=== PATIENT | female | born 1965 | race Caucasian/White ===

== ENCOUNTER → 2017-11-02 09:20 | Outpatient (CLI) | payer MEDICAID, SELFPAY ==
--- NOTE | 2017-11-02 09:23 | RAD_ITS ---
STUDY: X-RAY - LEFT HAND, ATTENTION FIRST FINGER REASON FOR EXAM: Female, 52 years old. Thumb pain. History of arthritis TECHNIQUE: 3 view(s) of the finger were obtained. COMPARISON: None. FINDINGS: There is moderate arthrosis of the basal joint. Normal metacarpal head. Normal metacarpophalangeal joint. Normal proximal phalanx. Distal phalanx. Normal interphalangeal joint. Normal soft tissues RAD/Finger(s) Min 2 Views IMPRESSION: Moderate osteoarthritis of the basal joint Electronically Signed: Joesph Castellon MD, FACR at 9:45 EST , Service support ,
== END ==
PROVIDERS: Family Provider Family Medicine; PCP Family Medicine; Visit Provider Orthopaedic Surgery
DX: M18.9 Osteoarthritis of first carpometacarpal joint, unspecified (principal)
CPT/HCPCS: 73140

== ENCOUNTER → 2017-11-09 15:08 | Outpatient (CLI) | payer MEDICAID, SELFPAY ==
--- NOTE | 2017-11-09 15:10 | HPBI_ITS ---
MAMMOGRAPHY - BILATERAL SCREENING REASON FOR EXAM: Female, 52 years old. Routine annual screening examination. PERTINENT HISTORY: Non-contributory. TECHNIQUE: Digital bilateral breast michael (3D mammographic acquisition) in the CC and MLO projections. 2-D mediolateral oblique (MLO) and craniocaudad (CC) views of both breasts were obtained. CAD: Full Field Digital Mammography with Computer Added Detection was performed. COMPARISON: Comparison is made with prior examination dated June 26, 2016 and December 21, 2014. FINDINGS: Breast Composition: There are scattered areas of fibroglandular density. There are no dominant masses or suspicious calcifications. No other significant abnormalities are identified. There has been no significant change since the prior study. HPBI/SCREENING MAMM (CAD), BILAT IMPRESSION: Stable bilateral screening mammogram. Yearly follow-up mammogram recommended. (A) ASSESSMENT CATEGORY: BIRADS Category 1: Negative. A letter regarding these results will be sent to the patient by the facility within 30 days. Approximately 10% of breast cancers are not detected by mammography. A normal mammogram should not delay biopsy of a clinically suspicious abnormality. [id number] Electronically Signed: Hammad Roberts MD at 9:04 EST Tel [phone], Service support ,
== END ==
PROVIDERS: Family Provider Family Medicine; PCP Family Medicine; Visit Provider Obstetrics & Gynecology
DX: Z12.31 Encounter for screening mammogram for malignant neoplasm of breast (principal)
CPT/HCPCS: 77063; 77067

== ENCOUNTER 2017-11-26 12:54 | Day surgery (SDC) | payer MEDICAID, SELFPAY ==
[2017-11-26 13:19] VITALS: BP 142/94; PULSE 80; RESP 18; TEMP 36.9; O2SAT 100; BMI 39.7
--- NOTE | 2017-11-26 14:58 | RAD_ITS ---
PROCEDURE: Epidural cervical block. DATE OF EXAMINATION: November 26, 2017. INDICATION: Female, 52 years old. Chronic neck pain. FLUOROSCOPY TIME (if supplied): (0:05) minutes/seconds Fluoroscopic services provided for cervical epidural. RAD/Spine 1 View Any Level IMPRESSION: Fluoroscopic services provided for a cervical epidural. Electronically Signed: Hammad Roberts MD at 7:57 EDT Tel [phone], Service support ,
[2017-11-26] MEDS: Triamcinolone Acetonide 40 MG/ML Vial (15:01)
[2017-11-26 15:10] VITALS: BP 142/94; BP 144/88; PULSE 79; RESP 16; O2SAT 100
[2017-11-26 15:15] VITALS: BP 142/94; BP 150/87; PULSE 76; RESP 16; O2SAT 100
[2017-11-26 15:20] VITALS: BP 142/71; BP 142/94; PULSE 76; RESP 16; O2SAT 100
[2017-11-26 15:24] VITALS: BP 140/75; BP 142/94; PULSE 67; RESP 16; O2SAT 99
[2017-11-26 15:45] VITALS: BP 142/94
== END 2017-11-26 15:47 | disposition home or self-care (01) ==
LOC: SDC 12:55 → AC 12:56
PROVIDERS: Family Provider Family Medicine; PCP Family Medicine; Visit Provider Anesthesiology Pain Medicine
PROC: 3E0S3BZ Introduction of Anesthetic Agent into Epidural Space, Percutaneous Approach (ICD-10-PCS; CPT 62320; principal; 2017-11-26 14:05)
DX: M50.123 Cervical disc disorder at C6-C7 level with radiculopathy (principal); I10 Essential (primary) hypertension; E78.00 Pure hypercholesterolemia, unspecified; E06.9 Thyroiditis, unspecified; G47.30 Sleep apnea, unspecified; Z85.41 Personal history of malignant neoplasm of cervix uteri; Z87.891 Personal history of nicotine dependence; Z79.899 Other long term (current) drug therapy
CPT/HCPCS: 62321; 64490; 72020; J7120; J3490

== ENCOUNTER 2018-02-16 15:09 | Outpatient (RCR) | payer MEDICAID, SELFPAY | END 2018-02-17 23:59 | LOC: NS 15:09 | PROVIDERS: Family Provider Family Medicine; PCP Family Medicine; Visit Provider Podiatrist | DX: E66.8 Other obesity (principal); M06.872 Other specified rheumatoid arthritis, left ankle and foot; Z68.39 Body mass index [BMI] 39.0-39.9, adult; Z71.3 Dietary counseling and surveillance | CPT/HCPCS: 97802 ==

== ENCOUNTER → 2018-02-23 15:30 | Outpatient (CLI) | payer MEDICAID, SELFPAY ==
--- NOTE | 2018-02-23 15:30 | DT_ITS ---
This patient was seen during an EMR downtime February 21, 2018 - February 28, 2018. This patient may have a combination of paper and electronic documentation or all paper documentation. All documentation is viewable within the e-chart portion of [facility] for each patient visit.
== END ==
PROVIDERS: Family Provider Family Medicine; PCP Family Medicine; Visit Provider Obstetrics & Gynecology
DX: Z12.4 Encounter for screening for malignant neoplasm of cervix (principal)
CPT/HCPCS: 88175; G0145

== ENCOUNTER → 2018-03-09 09:40 | Outpatient (CLI) | payer MEDICAID, SELFPAY ==
[2018-03-09 10:30] LABS: Absolute Lymphocyte Count 2.11 X10^3/ul (0.83-4.51); Absolute Neutrophil Count 8.6 X10^3/uL (2.0-7.7); Basophil# 0.02 X10^3/uL; Basophil% 0.2 % (0-1); Eosinophil# 0.22 X10^3/uL; Eosinophils% 1.9 % (0-5); Hemoglobin 13.4 g/dl (12.0-15.0); Lymphocyte # 2.11 X10^3/ul (4.0); Mean Corp Hgb Conc 32.7 g/gl (32-36); Mean Corpuscular Hgb 29.4 pg (27.0-32.0); Mean Corpuscular Volume 89.9 fL (81-99); Mean Platelet Vol. 10.2 fl (6.2-12.0); Monocyte# 0.77 X10^3/uL; Monocyte% 6.6 % (0-10); Neutrophil % 73.2 % (47-70); Platelet Count 330 K/mm3 (150-450); RBC Distribution Width CV 12.6 % (11.6-14.6); RBC Distribution Width SD 40.5 fl (35.1-43.9); Red Blood Count 4.56 M/mm3 (4.2-5.4); White Blood Count 11.7 K/mm3 (4.4-11.0)
[2018-03-09 10:31] LABS: POSITIVE COUNT NO; POSITIVE DIFFERENTIAL NO; POSITIVE MORPHOLOGY NO
[2018-03-09 11:09] LABS: AST(SGOT) 15 U/L (15-37); Alanine Aminotransfer ALT/SGPT 24 U/L (13-56); Albumin, Serum 3.8 g/dL (3.2-5.0); Alkaline Phosphatase 105 U/L (45-117); Anion Gap 9 (5-15); BUN 19 mg/dL (7-18); BUN/Creat Ratio 20.8 RATIO (10-20); Calcium,Total 9.1 mg/dL (8.5-10.1); Chloride 103 mmol/L (98-107); Cholesterol 145 mg/dL (200); Creatinine, Serum 0.91 mg/dL (0.55-1.02); EST Glomerular Filtration Rate 68 mL/min (>60); Est Glom Filt Rate - Afr Amer 82 mL/min (>60); Glucose 90 mg/dL (74-106); High Density Lipoprotein 66 mg/dL; Potassium 4.1 mmol/L (3.5-5.1); Protein, Total 7.8 g/dL (6.4-8.2); Sodium Level 140 mmol/L (136-145); T4 Free Direct 1.47 ng/dL (0.76-1.46); Thyroid Stim Hormone (TSH) 1.88 uIU/mL (0.358-3.74); Triglycerides 95 mg/dL; Very Low Density Lipoprotein 19 mg/dL (5-40)
== END ==
PROVIDERS: Family Provider Family Medicine; PCP Family Medicine; Visit Provider Family Medicine
DX: Z00.01 Encounter for general adult medical examination with abnormal findings (principal); E03.9 Hypothyroidism, unspecified; E66.9 Obesity, unspecified
CPT/HCPCS: 36415; 80053; 80061; 82306; 84439; 84443; 85025

== ENCOUNTER 2018-03-16 14:05 | Day surgery (SDC) | payer MEDICAID, SELFPAY ==
[2018-03-16 14:27] VITALS: BP 136/71; PULSE 80; RESP 18; TEMP 36.4; O2SAT 100; BMI 38.2
--- NOTE | 2018-03-16 15:45 | RAD_ITS ---
STUDY: FLUOROSCOPIC IMAGING. REASON FOR EXAM: Female, 53 years old. Neck pain. FLUOROSCOPY TIME (if supplied): (0:18) minutes/seconds TECHNIQUE: Intraoperative imaging was provided for C7-T1 epidural block. COMPARISON: None. FINDINGS: Imaging provided for C7-T1 epidural block. RAD/Spine 1 View Any Level IMPRESSION: Imaging provided for C7-T1 epidural block. Electronically Signed: Hammad Roberts MD at 8:00 EDT Tel [phone], Service support ,
[2018-03-16] MEDS: Triamcinolone Acetonide 40 MG/ML Vial (16:18)
[2018-03-16 16:27] VITALS: BP 127/53; BP 136/71; PULSE 82; RESP 16; TEMP 36.4; O2SAT 100
[2018-03-16 16:32] VITALS: BP 117/71; BP 136/71; PULSE 80; RESP 16; O2SAT 100
[2018-03-16 16:37] VITALS: BP 126/66; BP 136/71; PULSE 70; RESP 17; O2SAT 100
[2018-03-16 16:41] VITALS: BP 128/61; BP 136/71; PULSE 71; RESP 16; TEMP 36.8; O2SAT 99
[2018-03-16 17:00] VITALS: BP 136/71
== END 2018-03-16 17:05 | disposition home or self-care (01) ==
LOC: SDC 14:07 → AC 14:08
PROVIDERS: Family Provider Family Medicine; PCP Family Medicine; Visit Provider Anesthesiology Pain Medicine
PROC: 3E0S3BZ Introduction of Anesthetic Agent into Epidural Space, Percutaneous Approach (ICD-10-PCS; CPT 62320; principal; 2018-03-16 15:40)
DX: M50.123 Cervical disc disorder at C6-C7 level with radiculopathy (principal); I10 Essential (primary) hypertension; E78.00 Pure hypercholesterolemia, unspecified; K21.9 Gastro-esophageal reflux disease without esophagitis; E06.9 Thyroiditis, unspecified; G47.33 Obstructive sleep apnea (adult) (pediatric); Z79.899 Other long term (current) drug therapy; Z87.891 Personal history of nicotine dependence; Z85.41 Personal history of malignant neoplasm of cervix uteri
CPT/HCPCS: 62321; 72020; J7120; J3490

== ENCOUNTER 2018-04-04 15:30 | Outpatient (RCR) | payer MEDICAID, SELFPAY | END 2018-04-19 23:59 | LOC: NS 15:30 | PROVIDERS: Family Provider Family Medicine; PCP Family Medicine; Visit Provider Podiatrist | DX: E66.8 Other obesity (principal); M06.872 Other specified rheumatoid arthritis, left ankle and foot; Z71.3 Dietary counseling and surveillance | CPT/HCPCS: 97803 ==

== ENCOUNTER 2018-05-02 08:22 | Outpatient (RCR) | payer MEDICAID, SELFPAY | END 2018-05-20 23:59 | LOC: NS 08:22 | PROVIDERS: Family Provider Family Medicine; PCP Family Medicine; Visit Provider Podiatrist | DX: E66.8 Other obesity (principal); M06.872 Other specified rheumatoid arthritis, left ankle and foot; Z68.39 Body mass index [BMI] 39.0-39.9, adult; Z71.3 Dietary counseling and surveillance | CPT/HCPCS: 97803 ==

== ENCOUNTER → 2018-06-01 10:15 | Outpatient (CLI) | payer MEDICAID, SELFPAY ==
[2018-06-01 11:58] LABS: Absolute Lymphocyte Count 1.89 X10^3/ul (0.83-4.51); Absolute Neutrophil Count 5.4 X10^3/uL (2.0-7.7); Basophil# 0.05 X10^3/uL; Basophil% 0.6 % (0-1); Eosinophil# 0.14 X10^3/uL; Eosinophils% 1.8 % (0-5); Hematocrit 38.8 % (37-47); Hemoglobin 12.9 g/dl (12.0-15.0); Lymphocyte # 1.89 X10^3/ul (4.0); Lymphocyte % 23.6 % (19-41); Mean Corp Hgb Conc 33.2 g/gl (32-36); Mean Corpuscular Hgb 29.3 pg (27.0-32.0); Mean Corpuscular Volume 88.2 fL (81-99); Mean Platelet Vol. 10.8 fl (6.2-12.0); Monocyte# 0.51 X10^3/uL; Monocyte% 6.4 % (0-10); Neutrophil # 5.39 X10^3/uL (2.7-7.7); Neutrophil % 67.3 % (47-70); Platelet Count 294 K/mm3 (150-450); RBC Distribution Width CV 13.1 % (11.6-14.6); RBC Distribution Width SD 41.5 fl (35.1-43.9)
[2018-06-01 12:00] LABS: POSITIVE COUNT NO; POSITIVE DIFFERENTIAL NO; POSITIVE MORPHOLOGY NO
[2018-06-01 12:18] LABS: Vitamin D,25 Hydroxy 46.2 ng/mL (29.95-100.01)
[2018-06-01 12:39] LABS: AST(SGOT) 21 U/L (15-37); Alanine Aminotransfer ALT/SGPT 30 U/L (13-56); Albumin, Serum 3.8 g/dL (3.2-5.0); Alkaline Phosphatase 121 U/L (45-117); Anion Gap 11 (5-15); BUN 15 mg/dL (7-18); BUN/Creat Ratio 17.3 RATIO (10-20); Calcium,Total 9.3 mg/dL (8.5-10.1); Chloride 103 mmol/L (98-107); Creatinine, Serum 0.87 mg/dL (0.55-1.02); EST Glomerular Filtration Rate 72 mL/min (>60); Est Glom Filt Rate - Afr Amer 87 mL/min (>60); Glucose 104 mg/dL (74-106); Potassium 3.8 mmol/L (3.5-5.1); Protein, Total 7.8 g/dL (6.4-8.2); Sodium Level 139 mmol/L (136-145); Thyroid Stim Hormone (TSH) 1.28 uIU/mL (0.358-3.74)
== END ==
PROVIDERS: Family Provider Family Medicine; PCP Family Medicine; Visit Provider Family Medicine
DX: Z01.818 Encounter for other preprocedural examination (principal); E03.9 Hypothyroidism, unspecified; E55.9 Vitamin D deficiency, unspecified
CPT/HCPCS: 36415; 80053; 82306; 84439; 84443; 85025

== ENCOUNTER 2018-06-14 14:00 | Outpatient (RCR) | payer MEDICAID, SELFPAY | END 2018-06-19 23:59 | LOC: NS 14:00 | PROVIDERS: Family Provider Family Medicine; PCP Family Medicine; Visit Provider Podiatrist | DX: E66.8 Other obesity (principal); M06.872 Other specified rheumatoid arthritis, left ankle and foot; Z68.39 Body mass index [BMI] 39.0-39.9, adult; Z71.3 Dietary counseling and surveillance | CPT/HCPCS: 97803 ==

== ENCOUNTER 2018-06-17 05:57 | Day surgery (SDC) | payer MEDICAID, SELFPAY ==
[2018-06-17] VITALS (7 sets, daily range): BP systolic 99–127; BP diastolic 55–70; PULSE 74–96; RESP 16; TEMP 36.1–36.8; O2SAT 94–100; BMI 35.9
[2018-06-17] MEDS: Cefazolin 2 GM in 0.9% Normal Saline 100 ML IV (07:21)
[2018-06-17] MEDS: Bupivacaine Mpf 0.5% 30 ML VIAL ×2 (07:30→10:12)
--- NOTE | 2018-06-17 07:30 | RAD_ITS ---
STUDY: X-RAY - LEFT FOOT CLINICAL: Female, 53 years old. Arthrodesis of the second and third metatarsal articulation. TECHNIQUE: 2 coned down intraoperative view(s) of the foot. COMPARISON: Comparison is made with prior examination dated March 20, 2014. FINDINGS: The patient is status post arthrodesis of the second and third tarsal metatarsal joint. RAD/Foot min 3 Views IMPRESSION: Arthrodesis of the second and third tarsometatarsal joints with screw and plate fixation device. Electronically Signed: Hammad Roberts MD at 13:05 EDT Tel [phone], Service support ,
[2018-06-17] MEDS: Calcium Chloride 1 GM/10 ML Syringe (09:30)
[2018-06-17] MEDS: Heparin 10,000 UNITS/10 ML Vial 10000 UNITS (09:30)
--- NOTE | 2018-06-17 10:21 | DCINST_ITS ---
Discharge Diet: No Restrictions Discharge Activity: May not drive while taking narcotic pain medications. Weight Bearing Status: No weight bearing - use knee roller and walker Keep extremity elevated above heart level: Left Leg Call your doctor if your incision/area has: Continuous Slow Oozing, Sudden Increased Bleeding, Increased Pain/ Swelling, Increased Redness, Foul Smelling Discharge, Swelling at the incision site Call your doctor if you observe: Fever of 101 or Higher, Numbness or Tingling, Chest pain, Calf discomfort, Uncontrolled pain Cleanse incision/area with: Keep Dressing Clean & Dry Allergies/Adverse Reactions: Allergies gabapentin Allergy (Mild, Verified 06/10/18 13:06) sedation hydroxychloroquine [From Plaquenil] Allergy (Verified 06/10/18 13:06) Rash THYROID MEDICATION Allergy (Uncoded 06/10/18 13:06) Rash Medications to take at Discharge Amlodipine [Norvasc] 10 mg PO QHS 02/05/16 Hydrochlorothiazide 12.5 mg PO PRN PRN 01/22/17 Lisinopril [Zestril] 20 mg PO DAILY 01/22/17 Simvastatin [Zocor] 20 mg PO QHS 01/22/17 traMADol [Ultram] 50 mg PO BID 01/22/17 cyclobenzaprine 10 mg tablet 10 mg PO PRN PRN 10/12/17 levothyroxine 100 mcg tablet 75 mcg PO DAILY tab 10/12/17 Bacillus Coagulans [Digestive Advantage] 1 each PO TID PRN 03/15/18 Black Cohosh 540 mg PO BID 03/15/18 Cholecalciferol (Vitamin D3) [Vitamin D3] 2,000 unit PO DAILY 03/15/18 Primary Care Physician: Silverio Landry DO [Primary Care Provider] - Test Results: Test results from this visit will be discussed in further detail at your follow- up appointment, if applicable. Please Follow Up With: Radha Collins DPM When: [facility] [phone]. Call sooner if questions. Proposed Discharge Date: 06/17/18
--- NOTE | 2018-06-17 10:23 | PCM.IMDPSTOP ---
Problem List (1) Left foot pain Status: Chronic (2) Arthritis, midfoot Status: Chronic Immediate Post-Op Note Date of Procedure: 06/17/18 - Soccer Referee: Valerie Wynn, PGY3. Surgeon: Radha Collins DPM Primary Surgeon/Physician: Radha Collins DPM diamond assorter: none Pre-Operative Diagnosis: left midfoot arthritis (rheumatoid). left foot pain Post-Operative Diagnosis: left midfoot arthritis (rheumatoid). left foot pain Surgery/Procedure Performed:: arthrodesis of 2 and 3 metatarsal cuneiforms, left foot with bone graft and internal fixation. application and harvest of bone marrow aspirate of left lower extremity Description of Surgical Findings:: hemostasis controlled; well padded pneumatic thigh tourniquet complications: none materials: arthrex U-plate, 5 locking 3.0 screws, 3 non locking cortical 3.0 screws, arteriocyte bone marrow aspirate and PPP application, cancellous bone grafts (allograft) The patient tolerated the procedure and anesthesia well. She was transported to the PACU with vitals stable and vascular status intact to the left lower extremity. Post operative orders were entered electronically and she will be discharged home upon continued stability. Post operative xrays were reviewed. Estimated Blood Loss: < 100 mL Specimen's removed: none Type of Anesthesia:: General, Local - preop: 1:1 mix of 1% lidocaine plain and 0.5% marcaine plain left ankle block fashion, 10 cc intra op: same, 2 cc post op: same, 20 cc - Admit VTE Documentation VTE Present on Admission: No VTE Mechan Device Prophylaxis: SCD's VTE Pharm Prophylaxis ordered?: Yes
--- NOTE | 2018-06-17 10:27 | OP.PN_ITS ---
Problem List (1) Left foot pain Status: Chronic (2) Arthritis, midfoot Status: Chronic Immediate Post-Op Note Date of Procedure: 06/17/18 - Programmer Analyst: Valerie Wynn, PGY3. Surgeon: Radha Collins DPM Primary Surgeon/Physician: Radha Collins DPM materials management supervisor: none Pre-Operative Diagnosis: left midfoot arthritis (rheumatoid). left foot pain Post-Operative Diagnosis: left midfoot arthritis (rheumatoid). left foot pain Surgery/Procedure Performed:: arthrodesis of 2 and 3 metatarsal cuneiforms, left foot with bone graft and internal fixation. application and harvest of bone marrow aspirate of left lower extremity Description of Surgical Findings:: hemostasis controlled; well padded pneumatic thigh tourniquet complications: none materials: arthrex U-plate, 5 locking 3.0 screws, 3 non locking cortical 3.0 screws, arteriocyte bone marrow aspirate and PPP application, cancellous bone grafts (allograft) The patient tolerated the procedure and anesthesia well. She was transported to the PACU with vitals stable and vascular status intact to the left lower extremity. Post operative orders were entered electronically and she will be discharged home upon continued stability. Post operative xrays were reviewed. Estimated Blood Loss: < 100 mL Specimen's removed: none Type of Anesthesia:: General, Local - preop: 1:1 mix of 1% lidocaine plain and 0.5% marcaine plain left ankle block fashion, 10 cc intra op: same, 2 cc post op: same, 20 cc - Admit VTE Documentation VTE Present on Admission: No VTE Mechan Device Prophylaxis: SCD's VTE Pharm Prophylaxis ordered?: Yes
--- NOTE | 2018-06-17 10:28 | RAD_ITS ---
STUDY: X-RAY - LEFT FOOT CLINICAL: Female, 53 years old. Status post arthrodesis. TECHNIQUE: 3 view(s) of the foot. COMPARISON: Comparison is made with prior examination earlier in the day. FINDINGS: The patient is status post fusion at the second and third tarsal metatarsal joints using screw and plate fixation. Postoperative soft tissue changes. RAD/Foot min 3 Views IMPRESSION: Status post arthrodesis of the second and third tarsometatarsal joints. Electronically Signed: Hammad Roberts MD at 13:08 EDT Tel [phone], Service support ,
--- NOTE | 2018-06-17 10:28 | OP.PCM_ITS ---
Problem List (1) Left foot pain Status: Chronic (2) Arthritis, midfoot Status: Chronic Report of Operation Date of Procedure: 06/17/18 - Ink Jet Operator: Valerie Sheppard, PGY3. Surgeon: Radha Collins DPM Pre-Operative Diagnosis: left midfoot arthritis (rheumatoid). left foot pain Post-Operative Diagnosis: left midfoot arthritis (rheumatoid). left foot pain Surgery/Procedure Performed:: arthrodesis of 2 and 3 metatarsal cuneiform joints, left foot with bone graft and internal fixation. application and harvest of bone marrow aspirate of left lower extremity Description of Surgical Findings:: hemostasis controlled; well padded pneumatic tourniquet (315 mmHg, 110 minutes) complications: none materials: arthrex U-plate, 5 locking 3.0 screws, 3 non locking cortical 3.0 screws, arteriocyte bone marrow aspirate and PPP application, cancellous bone grafts (allograft) teacher counselor: none Type of Anesthesia:: General, Local - preop: 1:1 mix of 1% lidocaine plain and 0.5% marcaine plain left ankle block fashion, 10 cc intra op: same, 2 cc post op: same, 20 cc Specimen's removed: none Estimated Blood Loss (mL): < 100 mL Description of Procedure: Indications: This 53-year-old female with significant past medical history of inflammatory polyarthropathy, rheumatoid arthritis with positive rheumatoid factor, hypertension, fibromyalgia, spinal stenosis, hyperlipidemia, obesity, and hypothyroidism continues to have left foot pain. She has been treated for left midfoot arthritis for several years. Her pain has worsened with walking and weightbearing activities and this is affecting her ability to perform her daily activities. She has failed conservative care including rest, activity modification, injections, oral anti-inflammatory medications, rheumatological management with Dr. English, immobilization, modification of activities, and bracing. Clinically, she has pain on palpation to the dorsal second and third metatarsal cuneiform joints and the crepitation with passive motion is audible and palpable. Her neurovascular status remains intact. She demonstrates pain to both the dorsal and plantar aspect of the foot in this region. She has pain with ambulation and has decreased medial longitudinal arch. Her x-rays demonstrate decreased joint spaces and spurring to the tarsometatarsal articulation areas and there are no acute fractures. The preoperative indications, planned procedure, possible benefits, risks, complications, and anticipated healing time and management were discussed in detail with the patient. She understands and would like to proceed with surgery at this time. No guarantees were made. She understands complications may include but are not limited to the following: infection, delayed or nonhealing, hardware failure, over or under correction, loss of limb function, life, or limb, need for additional surgery, numbness, scarring, pain, allergic reaction, or blood clot. The informed surgical consent and surgical limb were signed. I answered all of her questions. Her preoperative diagnostic data was reviewed without any gross abnormalities to the CBC, CMP, TSH, free T4. Her vitamin D levels was also screened preoperatively and it was 46.2. Her preoperative h istory and physical exam including clearance were also reviewed. Procedure in detail: The patient was transported to the operating room via cart and placed on the operating table in the supine position. The anesthesia team initiated general anesthesia and the podiatry team injected local anesthetic as noted. Preoperative antibiotics were administered by the anesthesia team. Final verification of the patient, surgery, and limb designation was performed via the timeout procedure. The left lower extremity was bumped to allow good exposure. A well-padded pneumatic left thigh tourniquet was placed. The left lower extremity was then prepped and draped in the usual aseptic manner. Surgery began as a following: Attention was first directed to the medial aspect of the tibial tuberosity in which a 1 cm linear incision was made in the skin over this area and blunt dissection was performed down to the bone with a hemostat. Two cc of local anesthetic was administered prior to making this incision. A trocar was carefully entered and approximately 40 mL of bone marrow aspirate healthy in appearance was extracted. This was further spun down and prepared according to arteriocyte protocol for later incorporation with bone graft at the arthrodesis site of the foot. This site was then irrigated with normal saline and nylon was used to reapproximate the skin. Next, an intraoperative Doppler was used to map out the path of the dorsalis pedis and this was avoided. An Esmarch bandage was next used to exsanguinate the limb and the tourniquet was inflated at this time (315 mmHg). Attention was next directed to the dorsal aspect of the left foot in which a curvilinear incision was performed to later expose the second and third tarsometatarsal articulations. Care was taken to identify, protect, and retract all neurovascular structures at this time and throughout the remainder of the surgery. Blunt dissection was performed and the extensor tendons were also identified and retracted. The joints of interest were identified and were incised with a 15 blade scalpel. It was noted that the second metatarsal cuneiform articulation was mobile and there was dorsal spurring noted. There was significant destruction of this joint including fissuring, partial violation of the subchondral plate, and discoloration consistent with arthritis. The dorsal exostosis was removed with an osteotome and the articular surfaces were directly visualized. The joint surface was denuded with osteotomes, curettes, and sagittal saw until healthy bleeding bone was visible. Good access and v isualization was achieved with the mini joint distractor. Next access to the third metatarsal cuneiform joint was identified and the same findings were noted. Subchondral drilling was performed to further stimulate arthrodesis success at both sites. This joint was additionally prepared for arthrodesis in the same manner. Next, crushed cancellous bone chips were mixed with bone marrow aspirate in a concentrated manner and packed into the joint spaces and temporary fixation was applied. Intraoperative fluoroscopy was utilized to confirm appropriate placement of the Arthrex U-plate. The plate was next locked in place proximally with locking screws and care was taken to utilize proper AO fixation technique. Next cortical screws were applied to the oblong holes of each long arm of the plate that extended over the second and third metatarsals to allow compression via eccentric drilling. This was visualized with intraoperative fluoroscopy and also clinically. Additional locking and cortical screws were placed proximally and distal for additional stabilization. The surgical wound was then irrigated with normal saline and additional bone marrow aspirate and PRP was placed into the wound bed during closure. The tourniquet was deflated and capillary refill time was brisk to all digits of the left foot; there was no pulsatile bleeding noted. The deep wound was reapproximated with 2-0 and 3-0 Vicryl. The skin was reapproximated utilizing horizontal mattress and simple suture technique with 4-0 nylon. A postoperative injection was administered at this time as noted above. A postoperative dressing consisting of Betadine soaked Adaptic, gauze, and Kerlix was applied. Next, a well-padded posterior fiberglass mold was applied with the foot in neutral position for additional support and edema control; this was secured with an TANYA wrap. Again, intraoperative fluoroscopy was utilized to confirm full reduction of the arthrodesis site and proper placement and trajectory of all hardware. It is also noted that there were no acute injuries noted. After procedure: The patient tolerated the procedure and anesthesia well and transported to PACU with vital signs stable and vascular status intact to the left lower extremity. Postoperative x-rays were formally ordered prior to her release home. She will be discharged home upon continued stability and was advised to remain strictly nonweightbearing to the left lower extremity. She has a walker and knee roller at home. She was also advised to ice and elevate for pain and inflammation management. She has a prescription for Percocet to take as needed in a safe manner for pain control. She was advised to keep her dressing and splint clean, dry, and intact until [facility]. Her postoperative orders were entered electronically. Radha Collins DPM, [facility]
== END 2018-06-17 12:26 | disposition home or self-care (01) ==
LOC: SDC 05:57 → AC 05:58
PROVIDERS: Family Provider Family Medicine; PCP Family Medicine; Visit Provider Podiatrist
PROC: (CPT 28730; principal; 2018-06-17 07:15)
DX: M06.4 Inflammatory polyarthropathy (principal); G89.29 Other chronic pain; I44.0 Atrioventricular block, first degree; I10 Essential (primary) hypertension; E78.00 Pure hypercholesterolemia, unspecified; E55.9 Vitamin D deficiency, unspecified; E03.9 Hypothyroidism, unspecified; M79.7 Fibromyalgia; K21.9 Gastro-esophageal reflux disease without esophagitis; E66.9 Obesity, unspecified; Z68.35 Body mass index [BMI] 35.0-35.9, adult; R60.0 Localized edema; Z79.01 Long term (current) use of anticoagulants; Z79.899 Other long term (current) drug therapy; Z87.891 Personal history of nicotine dependence
CPT/HCPCS: 01480; 28730; 38232; 73630; 76000; C1713; J7120; J2405

== ENCOUNTER 2018-06-25 07:49 | Emergency (ER) | payer MEDICAID, SELFPAY ==
[2018-06-25 07:49] VITALS: BP 144/75; PULSE 81; RESP 16; TEMP 36.6; O2SAT 100; BMI 35.9
--- NOTE | 2018-06-25 08:13 | ED.DCSUM_ITS ---
- ER Visit Summary Date of Service: 06/25/18 Chief Complaint: Dizziness History of Present Illness: The patient is a 53 F sudden dizziness after awakening at 6:30 AM this morning. Worsen with eyes closed. Feels like she is spinning. No nausea or vomiting. No visual changes. Patient status post left foot arthrodesis by Dr. Collins on June 17. This was elective procedure. Using oxycodone every 6 hours. This morning at 430, took her oxycodone additional Flexeril for spasms which is provided by her dredgemaster. In addition use Jimbo-Synephrine spray due to use of a CPAP to help clear the sinus airways. Denies any lightheaded symptoms. States able to go back to sleep however awaken with the symptoms. No ear pain or ringing. Denies previous similar symptoms in the past. Patient called covering dredgemaster told to go the ED. Physical Examination: General: Alert and oriented ?3, no acute distress HEENT: Normocephalic, atraumatic. Moist mucosa membranes. Pupils equal reactive to light, extraocular muscles intact. TMs normal bilaterally. Neck: supple, nontender. Cardiovascular: Regular rate and rhythm, no murmurs Respiratory: Normal breath sounds, symmetric, no distress Abdomen: Soft, nontender, nondistended Extremities: Nontender, no edema, pulses intact ?4 Neuro: Positive [place]Hallpike to the right. Test Results: [] Emergency Department Course and Treatment: Patient with a positive [place] to the right, concerns for benign vertigo. Yris maneuver performed in the emergency department with improvement. However she developed her sinus congestion. History of hypertension. Patient was placed on loratadine daily without decongestions due to to using a nasal CPAP. As needed Antivert written. Podiatry, Dr. Lewis contacted to update. Treatment Plan: [] Disposition: Discharge Impression: 1. Acute vertigo 2. Sinus congestion This note was generated with [employer] dictation software. It may contain incorrect words, spelling, and punctuation that were not noted in review of the chart prior to signing ED Disposition - Plan for ED Patient: Disposition: Home or Assisted Living Chief Complaint: Dizziness Diagnosis: Vertigo, Sinus congestion Instructions: ED BPV Vertigo Prescriptions: RX: Loratadine [Claritin] 10 mg PO DAILY #30 tablet Meclizine HCl [Antivert] 25 mg PO 4X/DAY PRN PRN #20 tablet PRN Reason: Dizziness Referrals: Silverio Landry DO [Primary Care Provider] - 3-5 Days Additional Instructions: May perform yris maneuver if symptoms return prior to using medication. Use allergy medicine daily for sinus congestion.
[2018-06-25 09:07] VITALS: BP 123/71; PULSE 73; RESP 16; O2SAT 99
== END 2018-06-25 09:07 | disposition home or self-care (01) ==
PROVIDERS: Emergency Provider Emergency Medicine; Family Provider Family Medicine; PCP Family Medicine
DX: R42 Dizziness and giddiness (principal); J34.89 Other specified disorders of nose and nasal sinuses; I10 Essential (primary) hypertension; Z79.899 Other long term (current) drug therapy; Z87.891 Personal history of nicotine dependence
CPT/HCPCS: 99282

== ENCOUNTER → 2018-06-28 15:14 | Outpatient (CLI) | payer MEDICAID, SELFPAY ==
--- NOTE | 2018-06-28 15:15 | RAD_ITS ---
STUDY: X-RAY - RIGHT KNEE REASON FOR EXAM: Pain, no specific injury. TECHNIQUE: 4 view(s) of the knee. COMPARISON: None. FINDINGS: Normal visualized distal femur. Normal visualized proximal tibia and fibula. Normal proximal tibiofibular articulation. There is mild joint space narrowing of the medial femorotibial compartment. Normal lateral femorotibial compartment. There is moderate joint space narrowing of the patellofemoral articulation. The soft tissue structures are unremarkable. RAD/Knee 4 or More Views IMPRESSION: Arthrosis of the medial femorotibial and patellofemoral compartments. Electronically Signed: Adalid Quinonez MD at 15:49 EDT Tel , Service support ,
== END ==
PROVIDERS: Family Provider Family Medicine; PCP Family Medicine; Referring Provider Orthopaedic Surgery; Visit Provider Orthopaedic Surgery
DX: M17.11 Unilateral primary osteoarthritis, right knee (principal)
CPT/HCPCS: 73564

== ENCOUNTER 2018-07-12 08:18 | Outpatient (RCR) | payer MEDICAID, SELFPAY | END 2018-07-20 23:59 | LOC: NS 08:18 | PROVIDERS: Family Provider Family Medicine; PCP Family Medicine; Visit Provider Podiatrist | DX: E66.8 Other obesity (principal); M06.872 Other specified rheumatoid arthritis, left ankle and foot; Z68.39 Body mass index [BMI] 39.0-39.9, adult; Z71.3 Dietary counseling and surveillance | CPT/HCPCS: 97803 ==

== ENCOUNTER 2018-08-09 13:00 | Outpatient (RCR) | payer MEDICAID, SELFPAY | END 2018-08-19 23:59 | LOC: NS 13:00 | PROVIDERS: Family Provider Family Medicine; PCP Family Medicine; Visit Provider Podiatrist | DX: E66.8 Other obesity (principal); M06.872 Other specified rheumatoid arthritis, left ankle and foot; Z68.39 Body mass index [BMI] 39.0-39.9, adult; Z71.3 Dietary counseling and surveillance | CPT/HCPCS: 97802; 97803 ==

== ENCOUNTER 2018-09-15 11:39 | Outpatient (RCR) | payer MEDICAID, SELFPAY | END 2018-09-19 23:59 | LOC: NS 11:39 | PROVIDERS: Family Provider Family Medicine; PCP Family Medicine; Visit Provider Podiatrist | DX: E66.8 Other obesity (principal); M06.872 Other specified rheumatoid arthritis, left ankle and foot; Z68.39 Body mass index [BMI] 39.0-39.9, adult; Z71.3 Dietary counseling and surveillance | CPT/HCPCS: 97802 ==

== ENCOUNTER → 2018-10-03 15:17 | Outpatient (CLI) | payer MEDICAID, SELFPAY ==
--- NOTE | 2018-10-03 15:19 | US_ITS ---
STUDY: THYROID ULTRASOUND REASON FOR EXAM: Female, 53 years old. Left thyroid nodule palpated by doctor. Patient on Synthroid. TECHNIQUE: Ultrasound evaluation of the thyroid was performed with real-time and static nicole-scale imaging. COMPARISON: None. FINDINGS: RIGHT LOBE: The right lobe of the thyroid gland measures 4.1 x 1.1 x 1.1 cm. There is a heterogeneous echotexture. There is a 3 x 3 x 2 mm anechoic structure in the mid thyroid. There is a 1.3 x 0.9 x 0.9 cm cystic structure in the lower pole. LEFT LOBE: The left lobe of the thyroid gland measures 3.6 x 1.6 x 1.2 cm. There is a heterogeneous echotexture. There is a 1 x 0.5 x 0.5 cm hypoechoic nodule in the lower pole with marked peripheral enhancement. Also in the lower pole is a 0.6 x 0.7 x 0.5 cm hypoechoic nodule more posteriorly. There is also a 0.3 x 0.4 x 0.3 cm hypoechoic nodule in the mid thyroid. ISTHMUS: The isthmus measures 0.2 cm. The regional lymph nodes are normal. US/Thyroid IMPRESSION: 1. Heterogenous thyroid. 2. There are solid nodules in the left thyroid and cysts seen on the right. Electronically Signed: Solo Leslie DO at 23:57 EST Tel [phone], Service support ,
== END ==
PROVIDERS: Family Provider Family Medicine; PCP Family Medicine; Referring Provider Family Medicine; Visit Provider Family Medicine
DX: E04.1 Nontoxic single thyroid nodule (principal)
CPT/HCPCS: 76536

== ENCOUNTER → 2018-10-06 16:29 | Outpatient (CLI) | payer MEDICAID, SELFPAY ==
--- NOTE | 2018-10-06 16:32 | RAD_ITS ---
STUDY: X-RAY - CERVICAL SPINE REASON FOR EXAM: Female, 53 years old. Neck pain TECHNIQUE: 3 view(s) of the cervical spine were obtained. COMPARISON: None FINDINGS: Normal anterior atlantoaxial articulation. Normal odontoid process. Normal cervical lordosis. Moderate degenerative disc disease and spondylosis at C5-C6. The soft tissue structures are unremarkable. There is no demonstrated fracture of the cervical spine. RAD/Cerv Spine 2 or 3 Views IMPRESSION: No definite acute abnormality. Degenerative disc disease localized to C5-C6. Electronically Signed: Naresh Schmidt MD at 0:03 EST , Service support ,
--- OUTSIDE RECORDS SUMMARY | 2018-12-11 11:53 | XMS RPT_ITS ---
:1965 Author Organization OHIP Support Name Relationship Address Phone ROMA MARTINEZ Unavailable [address] + [place] [address] NICOLE, SUKHWINDER Unavailable [address] + [place] [address] UE Unavailable Unavailable Unavailable HARJEET ROMA Unavailable [address] + [place] [address] NICOLE, SUKHWINDER Unavailable [address] + [place] [address] UE Unavailable Unavailable Unavailable HARJEET ROMA Unavailable [address] + [place] [address] NICOLE, SUKHWINDER Unavailable [address] + [place] [address] UE Unavailable Unavailable Unavailable HARJEET ROMA Unavailable [address] + [place] [address] NICOLE, SUKHWINDER Unavailable [address] + [place] [address] UE Unavailable Unavailable Unavailable HARJEET ROMA Unavailable [address] + [place] [address] NICOLE, SUKHWINDER Unavailable [address] + [place] [address] UE Unavailable Unavailable Unavailable HARJEET ROMA Unavailable [address] + [place] [address] NICOLE, SUKHWINDER Unavailable [address] + [place] [address] UE Unavailable Unavailable Unavailable HARJEET ROMA Unavailable [address] + [place] [address] NICOLE, SUKHWINDER Unavailable [address] + [place] [address] UE Unavailable Unavailable Unavailable HARJEET ROMA Unavailable [address] + [place] [address] NICOLE, SUKHWINDER Unavailable [address] + [place] [address] UE Unavailable Unavailable Unavailable HARJEET, ROMA Unavailable [address] + [place] [address] NICOLE, SUKHWINDER Unavailable [address] + [place] [address] UE Unavailable Unavailable Unavailable HARJEET, ROMA Unavailable [address] + [place] [address] NICOLE, SUKHWINDER Unavailable [address] + [place] [address] UE Unavailable Unavailable Unavailable HARJEET, ROMA Unavailable [address] + [place] [address] NICOLE, SUKHWINDER Unavailable [address] + [place] [address] UE Unavailable Unavailable Unavailable FILLEY, ROMA Unavailable [address] + [place] [address] NICOLE, SUKHWINDER Unavailable [address] + [place] [address] UE Unavailable Unavailable Unavailable HARJEET, ROMA Unavailable [address] + [place] [address] NICOLE, SUKHWINDER Unavailable [address] + [place] [address] UE Unavailable Unavailable Unavailable FILLEY, ROMA Unavailable [address] + [place] [address] NICOLE, SUKHWINDER Unavailable [address] + [place] [address] UE Unavailable Unavailable Unavailable HARJEET, ROMA Unavailable [address] + [place] [address] NICOLE, SUKHWINDER Unavailable [address] + [place] [address] UE Unavailable Unavailable Unavailable HARJEET, ROMA Unavailable [address] + [place] [address] NICOLE, SUKHWINDER Unavailable [address] + [place] [address] UE Unavailable Unavailable Unavailable HARJEET, ROMA Unavailable [address] + [place] [address] NICOLE, SUKHWINDER Unavailable [address] + [place] [address] UE Unavailable Unavailable Unavailable HARJEET, ROMA Unavailable [address] + [place] [address] NICOLE, SUKHWINDER Unavailable [address] + [place] [address] UE Unavailable Unavailable Unavailable HARJEET, ROMA Unavailable [address] + [place] [address] NICOLE, SUKHWINDER Unavailable [address] + [place] [address] UE Unavailable Unavailable Unavailable FILLEY, ROMA Unavailable [address] + [place] [address] NICOLE, SUKHWINDER Unavailable [address] + [place] [address] UE Unavailable Unavailable Unavailable FILLEY, ROMA Unavailable [address] + [place] [address] NICOLE, SUKHWINDER Unavailable [address] + [place] [address] UE Unavailable Unavailable Unavailable FILLEY, ROMA Unavailable [address] + [place] [address] NICOLE, SUKHWINDER Unavailable [address] + [place] [address] UE Unavailable Unavailable Unavailable FILLEY, ROMA Unavailable [address] + [place] [address] NICOLE, SUKHWINDER Unavailable [address] + [place] [address] UE Unavailable Unavailable Unavailable HARJEET, ROMA Unavailable [address] + [place] [address] NICOLE, SUKHWINDER Unavailable [address] + [place] [address] UE Unavailable Unavailable Unavailable HARJEET, ROMA Unavailable [address] + [place] [address] NICOLE, SUKHWINDER Unavailable [address] + [place] [address] UE Unavailable Unavailable Unavailable HARJEET, ROMA Unavailable [address] + [place] [address] NICOLE, SUKHWINDER Unavailable [address] + [place] [address] UE Unavailable Unavailable Unavailable HARJEET, ROMA Unavailable [address] + [place] [address] NICOLE, SUKHWINDER Unavailable [address] + [place] [address] UE Unavailable Unavailable Unavailable HARJEET, ROMA Unavailable [address] + [place] [address] NICOLE, SUKHWINDER Unavailable [address] + [place] [address] UE Unavailable Unavailable Unavailable HARJEET, ROMA Unavailable [address] + [place] [address] NICOLE, SUKHWINDER Unavailable [address] + [place] [address] UE Unavailable Unavailable Unavailable HARJEET, ROMA Unavailable [address] + [place] [address] NICOLE, SUKHWINDER Unavailable [address] + [place] [address] UE Unavailable Unavailable Unavailable FILLEY, ROMA Unavailable [address] + [place] [address] NICOLE, SUKHWINDER Unavailable [address] + [place] [address] UE Unavailable Unavailable Unavailable FILLEY, ROMA Unavailable [address] + [place] [address] NICOLE, SUKHWINDER Unavailable [address] + [place] [address] UE Unavailable Unavailable Unavailable HARJEET, ROMA Unavailable [address] + [place] [address] NICOLE, SUKHWINDER Unavailable [address] + [place] [address] UE Unavailable Unavailable Unavailable HARJEET, ROMA Unavailable [address] + [place] [address] NICOLE, SUKHWINDER Unavailable [address] + [place] [address] UE Unavailable Unavailable Unavailable HARJEET, ROMA Unavailable [address] + [place] [address] NICOLE, SUKHWINDER Unavailable [address] + [place] [address] UE Unavailable Unavailable Unavailable HARJEET ROMA Unavailable [address] + [place] [address] NICOLE, SUKHWINDER Unavailable [address] + [place] [address] UE Unavailable Unavailable Unavailable HARJEET ROMA Unavailable [address] + [place] [address] NICOLE, SUKHWINDER Unavailable [address] + [place] [address] UE Unavailable Unavailable Unavailable HARJEET ROMA Unavailable [address] + [place] [address] NICOLE, SUKHWINDER Unavailable [address] + [place] [address] UE Unavailable Unavailable Unavailable HARJEET ROMA Unavailable [address] + [place] [address] NICOLE, SUKHWINDER Unavailable [address] + [place] [address] UE Unavailable Unavailable Unavailable HARJEET ROMA Unavailable [address] + [place] [address] NICOLE, SUKHWINDER Unavailable [address] + [place] [address] UE Unavailable Unavailable Unavailable Care Team Providers Name Role Phone Leanne Calhoun Attending Unavailable Leanne Calhoun Referring Unavailable Frantz, Silverio Primary Care Unavailable Kym Conrad Attending Unavailable [facility], Silverio Primary Care Unavailable Avila Durand Attending Unavailable vAila Durand Referring Unavailable Frantz, Silverio Primary Care Unavailable Valerie Clark D.C. Attending Unavailable FrantzSilverio Referring Unavailable Frantz, Silverio Primary Care Unavailable Valerie Clark D.C. Attending Unavailable Frantz, Silverio Referring Unavailable Frantz, Silverio Primary Care Unavailable Radha Collins Attending Unavailable [facility], Silverio Primary Care Unavailable Radha Collins Attending Unavailable Frantz, Silverio Primary Care Unavailable Leanne Calhoun Attending Unavailable Leanne Calhoun Referring Unavailable Frantz, Silverio Primary Care Unavailable Avila Durand Attending Unavailable Frantz, Silverio Primary Care Unavailable Chicorelli, Kym Attending Unavailable Frantz, Silverio Referring Unavailable Frantz, Silverio Primary Care Unavailable Frantz, Silverio Attending Unavailable Frantz, Silverio Referring Unavailable Frantz, Silverio Primary Care Unavailable Fascione, Radha Attending Unavailable Frantz, Silverio Primary Care Unavailable Fascione, Radha Attending Unavailable Fascione, Radha Referring Unavailable Frantz, Silverio Primary Care Unavailable Chicorelli, Kym Attending Unavailable Frantz, Silverio Referring Unavailable Fascione, Radha Attending Unavailable Frantz, Silverio Primary Care Unavailable Chicorelli, Kym Attending Unavailable Chicorelli, Kym Referring Unavailable Frantz, Silverio Primary Care Unavailable Chicorelli, Kym Attending Unavailable Frantz, Silverio Referring Unavailable Frantz, Silverio Primary Care Unavailable Manny Bueno Attending Unavailable Fascione, Radha Attending Unavailable Frantz, Silverio Primary Care Unavailable Dossie, Valerie Hoover Attending Unavailable Dossie, Valerie Hoover Attending Unavailable Dossie, Valerie Hoover Attending Unavailable Frantz, Silverio Referring Unavailable Frantz, Silverio Primary Care Unavailable DossieValerie D.C. Attending Unavailable Frantz, Silverio Referring Unavailable Frantz, Silverio Primary Care Unavailable Dossie, Valerie Hoover Attending Unavailable Frantz, Silverio Referring Unavailable Frantz, Silverio Primary Care Unavailable Dossie, Valerie Hoover Attending Unavailable Frantz, Silverio Referring Unavailable Frantz, Silverio Primary Care Unavailable Fascione, Radha Attending Unavailable Fascione, Radha Referring Unavailable Frantz, Silverio Primary Care Unavailable Frantz, Silverio Attending Unavailable Frantz, Silverio Primary Care Unavailable Fascione, Radha Attending Unavailable Frantz, Silverio Primary Care Unavailable Dossie, Valerie Hoover Attending Unavailable Dossie, Valerie Hoover Attending Unavailable Frantz, Silverio Referring Unavailable Frantz, Silverio Primary Care Unavailable Dossie, Valerie Hoover Attending Unavailable Frantz, Silverio Referring Unavailable Frantz, Silverio Primary Care Unavailable Fascione, Radha Attending Unavailable Frantz, Silverio Primary Care Unavailable Dossie, Valerie Hoover Attending Unavailable Frantz, Silverio Referring Unavailable Frantz, Silverio Primary Care Unavailable Dossie, Valerie Hoover Attending Unavailable Frantz, Silverio Referring Unavailable Frantz, Silverio Primary Care Unavailable BasaliLeanne Attending Unavailable Frantz, Silverio Primary Care Unavailable Basali, Leanne Referring Unavailable Frantz, Silverio Attending Unavailable Frantz, Silverio Referring Unavailable Frantz, Silverio Primary Care Unavailable FascioneRadha Attending Unavailable Frantz, Silverio Primary Care Unavailable DossiValerie dumont D.C. Attending Unavailable Valerie Clark D.C. Attending Unavailable Frantz, Silverio Referring Unavailable Frantz, Silverio Primary Care Unavailable DossieValerie D.C. 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 dysfunction of Hospital thoracic region / Repository M99.02(ICD-10) 06/15/2018 Unknown M99.03 - Segmental Dossie, Valerie Active [place] and somatic [facility] Community dysfunction of lumbar Hospital region / Repository M99.03(ICD-10) 06/15/2018 Unknown M99.05 - Segmental Dossie, Valerie Active [place] and somatic [facility].C. Community dysfunction of pelvic Hospital region / Repository M99.05(ICD-10) 06/01/2018 Unknown E03.9 - FrantzSilverio Active [place] Hypothyroidism, Community unspecified / Hospital E03.9(ICD-10) Repository 03/25/2018 Unknown M50.123 - Cervical BasaliLeanne Active [place] disc disorder at Community C6-C7 level with Hospital radiculopathy / Repository M50.123(ICD-10) 03/09/2018 Unknown Z00.01 - Encounter Silverio Landry Active [place] for general adult [facility] medical [place] [facility] with abnormal Repository findings / Z00.01(ICD-10) 03/09/2018 Unknown E55.9 - Vitamin D Silverio Landry Active [place] deficiency, Community unspecified / Hospital E55.9(ICD-10) Repository 03/16/2018 Unknown Z12.4 - Encounter for Avila Durand Active [place] screening for Community malignant neoplasm of Hospital cervix / Repository Z12.4(ICD-10) 11/09/2017 Unknown Z12.31 - Encounter RubenAvila mckeon Active [place] for screening [facility] mammogram for Hospital malignant neoplasm of Repository breast / Z12.31(ICD-10) 11/02/2017 Unknown M79.645 - [facility] [place] left finger(s) / [facility] M79.645(ICD-10) Hospital Repository 11/02/2017 Unknown M18.12 - Unilateral Chicorelli, 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 [facility] osteoarthritis of Hospital first carpometacarpal Repository joint, left hand / M18.12(ICD-10) PROCEDURES PROCEDURES No Procedure Records FoundRESULTS RESULTS CERV SPINE 2 OR 3 Observed: 10/06/2018 Status: F Source: [place] [place] VIEWS 4:32 PM [facility] REPOSITORY [facility] Imaging Services [address] [place] [address] Cerv Spine 2 or 3 Views MR#: [id number] Acct: [id number] Name: OMUOU MARTINEZ Rep #: [id number] : 1965 F 53 From: Naresh Schmidt MD PCP: Silverio Landry DO Status: REG CLI Study: Cerv Spine 2 or 3 Views Date of Exam: 10/06/18 Exam# [id number] Ordering Dr: Leanne Calhoun MD STUDY: X-RAY - CERVICAL SPINE REASON FOR EXAM: Female, 53 years old. Neck pain TECHNIQUE: 3 view(s) of the cervical spine were obtained. COMPARISON: None FINDINGS: Normal anterior atlantoaxial articulation. Normal odontoid process. Normal cervical lordosis. Moderate degenerative disc disease and spondylosis at C5-C6. The soft tissue structures are unremarkable. There is no demonstrated fracture of the cervical spine. RAD/Cerv Spine 2 or 3 Views IMPRESSION: No definite acute abnormality. Degenerative disc disease localized to C5-C6. Electronically Signed: Naresh Schmidt MD at 0:03 EST , Service support , CC: Leanne Calhoun MD; Silverio Landry DO Coal Cager: Signed THYROID Observed: 10/03/2018 Status: F Source: [place] 3:20 PM [facility] REPOSITORY [facility] Imaging Services [address] [place] [address] Thyroid MR#: [id number] Acct: [id number] Name: OUMOU MARTINEZ Rep #: [id number] : 1965 F 53 From: Solo Leslie DO PCP: Silverio Landry DO Status: REG CLI Study: Thyroid Date of Exam: 10/03/18 Exam# [id number] Ordering Dr: Silverio Landry DO STUDY: THYROID ULTRASOUND REASON FOR EXAM: Female, 53 years old. Left thyroid nodule palpated by doctor. Patient on Synthroid. TECHNIQUE: Ultrasound evaluation of the thyroid was performed with real-time and static nicole-scale imaging. COMPARISON: None. FINDINGS: RIGHT LOBE: The right lobe of the thyroid gland measures 4.1 x 1.1 x 1.1 cm. There is a heterogeneous echotexture. There is a 3 x 3 x 2 mm anechoic structure in the mid thyroid. There is a 1.3 x 0.9 x 0.9 cm cystic structure in the lower pole. LEFT LOBE: The left lobe of the thyroid gland measures 3.6 x 1.6 x 1.2 cm. There is a heterogeneous echotexture. There is a 1 x 0.5 x 0.5 cm hypoechoic nodule in the lower pole with marked peripheral enhancement. Also in the lower pole is a 0.6 x 0.7 x 0.5 cm hypoechoic nodule more posteriorly. There is also a 0.3 x 0.4 x 0.3 cm hypoechoic nodule in the mid thyroid. ISTHMUS: The isthmus measures 0.2 cm. The regional lymph nodes are normal. US/Thyroid IMPRESSION: 1. Heterogenous thyroid. 2. There are solid nodules in the left thyroid and cysts seen on the right. Electronically Signed: Solo Leslie DO at 23:57 EST Tel [phone], Service support , CC: Silverio Landry DO Coal Cager: Signed INITAL EVALUATION (1) Observed: 09/22/2018 Status: F Source: [place] [place] - PT 4:17 PM [facility] REPOSITORY [facility] Physical [facility] [address] [place] [address] [address] [place] [address] / REHABILITATION SERVICES INITIAL EVALUATION MR#: [id number] Acct: [id number] Name: OUMOU MARTINEZ Rep #: [id number] : 1965 53 From: Yana Macias DPT Referring DrRupal: Radha Collins DPM Status: REG RCR Insurance: [facility] [employer] Patient's Visit Information OUMOU MARTINEZ is a 53 year old F referred to Physical Therapy by Radha Collins DPM with a diagnosis of 2nd and 3rd Tarsal Metatarsal Fusion Left 06/17/18. Date of Evaluation: 09/22/18 Physical Therapist: Yana Macias DPT - Visit Plan Frequency: 2x /Week Duration: 4 Weeks Plan: Aquatics: focus on LE ROM and strength - Subjective Findings: Left foot surgery Jun 17, [address] Magana- 2nd and 3rd tarsal and metatarsal fusion. Was in a cast and was NWB for a long time. Has been in a walking boot for 3 weeks and has progressed to standing on it since then. Was doing great until she got the brace and the shoe- take it slow one hour and then she did it 2 hours and then she was done. Dr. Magana told her to put the boot back on September 02, 2018. She has been back in the boot for the last week. Currently the pain is more towards the outside of the foot- elevates a lot- Eases: elevation, ice and rest. Best: 0/10 Worst: 4/10 Agg: being on it to long. Describes the pain as burning sensation and achy. Uses a roll pillow to elevate the ankle. Sleep: wakes her up. Discomfort in the knee the last few days but no calf pain or toes. Toes tend to bother her so she is working on grabbing marbles. No n/t in the toes. Did the other foot done January by Dr. Magana. Sees her on the . Does not work outside of her home. PMHx: No changes since surgery- no pain meds in the last few weeks. WhyWeight program- will do until February. Comes in 2-3x a week. Nustep, weight machines. - Objective Posture: FH, RS, Increased kyphosis. Gait: CAM boot on the left LE- making gait slightly antaglic. Stairs:asc/desc 8 recip with 1 HR. HR/TR: able with weight shift to the right- left able to only lift the toes. SLS: Left: 3 seconds Right: 30 seconds. Palpation: not tender. ROM: DF: neutral with OP, PF: 60 degrees, Ever: 30 degrees Inv: 50 degrees. Strength: Right Ankle: 5/5, Left: 4-/5 in available range Knee: 4+/5, Hip: 4-/5 throughout, Core:fair minus. Flex: HS: moderate, Right Gastroc: moderate left Gastroc: severe Left SOlues: severe. Girth: metatarsals:24 cm Figure 4: 51 cm Mall: 22 cm. Palpation: tender to light touch throughout dorsum of the foot. Observation: bruised on top of the foot - Goals Goal 1:: Patient will be I with HEP and progression Goal Time Frame: 4-6 Weeks Goal 2:: Patient will ambulate >300 feet with a normalized gait pattern Goal Time Frame: 4-6 Weeks Goal 3:: Patient will demo 10 degrees of DF Goal Time Frame: 4-6 Weeks Goal 4:: Patient will demo decreased edema by 3 cm in figure 8 Goal Time Frame: 4-6 Weeks - Rehabilitation Potential Physical Therapy Diagnosis: Patient presents with hypomobility- she has decreased ROM, strength and muscular endurance leading to abnormal gait and inability to perform ADL's. Rehabilitation Potential: Good - Anticipated Interventions Patient/Client Instruction: Educate patient on: Benefits of Fitness Program Therapeutic Exercise to Include: Strength training, Endurance training, Balance training, Body mechanics, Postural training, Flexibilty training, Gait and locomotor training, In an aquatic setting, Passive ROM, Active ROM, Dynamic Lumbar Stabilization For the Purpose of:: To improve muscle performance and motor function Thank you for the opportunity to evaluate your patient. For Medicare and Medicare HMO plans, please review the plan of care and approve it. It will need to be FAXED BACK to us at [phone] for Medicare purposes. For Medicare only, by signing this I certify the plan of care. Please let me know if there are questions or concerns regarding this plan of care. Physician Signature: Date: <Electronically signed by Yana Macias DPT> 09/22/18 1617 CC: Radha LUONGM; Silverio Landry DO ELR Signed INITIAL EVALUATION (2) Observed: 09/22/2018 Status: F Source: [place] - PT 4:10 PM [facility] REPOSITORY [facility] Physical Therapy [address] [place] [address] / REHABILITATION SERVICES INITIAL EVALUATION MR#: [id number] Acct: [id number] Name: OUMOU MARTINEZ Rep #: [id number] : 1965 53 From: Yana Macias DPT Referring Dr.: Radha Collins DPM Status: REG RCR Insurance: [facility] [employer] Patient's Visit Information OUMOU MARTINEZ is a 53 year old F referred to Physical Therapy by Radha Collins DPM with a diagnosis of Medial Meniscal Tear. Date of Evaluation: 09/22/18 Physical Therapist: Yana Macias DPT - Visit Plan Frequency: 2x /Week Duration: 4 Weeks Plan: Aquatic-Focus on LE and core s/s - Subjective Findings: Fell at a February 18- turned and fell on the ground on the right knee. [place] okay- swelled up- started working out in April and it started bothering her. Unsure if it was how she was doing the NuStep. When she was using her knee scooter it would lock up and buckle under her. So she learned to drag it. The pain is on the medial side of the knee. Saw Dr. Conrad 3 weeks who wanted to do an MRI who wanted her to do PT for 4 weeks prior. She wears a knee brace which helps. Since the knee brace and some exercises and its getting better. No pain in the last week. Has not been on the Nustep or any other exercise equiptment. Has not had injections in the knee. Feels the knee is on the mend. Feels like the knee is 50% better. Still locks up and sridhar under her sometimes. No sleeping issues. No radiating pain- no N/T. PMhx/Meds: no change since surgery. Does not work outside of her home. When she does have pain its along the distal knee cap and medial side of the knee. Had an injury in 1999 and had what is called sympathetic dystrophy which increases numbness. - Objective Objective: Posture: FH, RS, Increased kyphosis. Gait: CAM boot on the left LE- making gait slightly antaglic. Stairs:asc/desc 8 recip with 1 HR. HR/TR: able with weight shift to the right- left able to only lift the toes. SLS: Left: 3 seconds Right: 30 seconds. Palpation: not tender. ROM: 0-125 degrees. Strength: Right Ankle: 5/5, Knee: 4+/5, Hip: 4-/5 throughout, Core:fair minus. Flex: HS: moderate, Right Gastroc: moderate. Karissa: negative - Goals Goal 1:: Patient will be I with HEP and progression Goal Time Frame: 4-6 Weeks Goal 2:: Patient will asc/desc 8 stairs recip with 1 HR Goal Time Frame: 4-6 Weeks Goal 3:: Patient will demo 5/5 strength in LE where deficit Goal Time Frame: 4-6 Weeks Goal 4:: Patinet will maintain proper posture t/o tx session to demo increased core s/s. Goal Time Frame: 4-6 Weeks - Rehabilitation Potential Physical Therapy Diagnosis: Patient presents with hypomobility- she has decreased strength and muscular endurance leading to increased pain with recreational activities and ADL's. Rehabilitation Potential: Fair - Anticipated Interventions Patient/Client Instruction: Educate patient on: Benefits of Fitness Program Therapeutic Exercise to Include: Strength training, Endurance training, Balance training, Body mechanics, Postural training, Flexibilty training, Gait and locomotor training, In an aquatic setting, Passive ROM, Active ROM, Dynamic Lumbar Stabilization For the Purpose of:: To improve muscle performance and motor function Thank you for the opportunity to evaluate your patient. For Medicare and Medicare HMO plans, please review the plan of care and approve it. It will need to be FAXED BACK to us at [phone] for Medicare purposes. For Medicare only, by signing this I certify the plan of care. Please let me know if there are questions or concerns regarding this plan of care. Physician Signature: Date: <Electronically signed by Yana Macias DPT> 09/22/18 1610 CC: Radha Collins DPM; Silverio Landry DO MARISABELR Signed ORTHOPEDIC VISIT Observed: 09/16/2018 Status: F Source: [facility] REPORT 12:39 PM [facility] REPOSITORY [facility] [address] [place] [id number] OFFICE VISIT Date of Service: 08/16/18 MR#: [id number] Acct: [id number] Name: OUMOU MARTINEZ Rep #: [id number] : 1965 Provider: Kym Conrad DO Age/Sex: 53/F Location: [facility] [place].S[facility] Status: Signed Intake Intake Visit Reasons: RIGHT KNEE Is patient in pain?: Yes Allergies gabapentin Allergy (Mild, Verified 06/28/18 15:09) sedation hydroxychloroquine [From Plaquenil] Allergy (Verified 06/28/18 15:09) Rash THYROID MEDICATION Allergy (Uncoded 06/25/18 07:52) Rash Medications Amlodipine [Norvasc] 10 mg PO QHS 02/05/16 [History Confirmed 06/10/18] Lisinopril [Zestril] 20 mg PO DAILY 01/22/17 [History Confirmed 06/10/18] Simvastatin [Zocor] 20 mg PO QHS 01/22/17 [History Confirmed 06/10/18] hydroCHLOROthiazide [Hydrochlorothiazide] 12.5 mg PO PRN PRN 01/22/17 [History Confirmed 06/10/18] traMADol [Ultram] 50 mg PO BID 01/22/17 [History Confirmed 06/10/18] cyclobenzaprine 10 mg tablet 10 mg PO PRN PRN 10/12/17 [History Confirmed 06/10/18] levothyroxine 100 mcg tablet 75 mcg PO DAILY tab 10/12/17 [History Confirmed 06/10/18] Bacillus Coagulans [Digestive Advantage] 1 ea PO TID PRN 03/15/18 [History Confirmed 06/10/18] Black Cohosh 540 mg PO BID 03/15/18 [History Confirmed 06/10/18] Cholecalciferol (Vitamin D3) [Vitamin D3] 2,000 unit PO DAILY 03/15/18 [History Confirmed 06/10/18] Loratadine [Claritin] 10 mg PO DAILY #30 tab 06/25/18 [Rx] Meclizine HCl [Antivert] 25 mg PO 4X/DAY PRN PRN #20 tab 06/25/18 [Rx] PFSH Medical History Cervical cancer (Acute) GERD (gastroesophageal reflux disease) (Acute) Graves disease (Acute) Spinal stenosis (Acute) Whiplash (Acute) Fibromyalgia (Chronic) IBS (irritable bowel syndrome) (Chronic) Surgical History History of foot surgery (Acute) History of tonsillectomy (Acute) H/O LEEP (Inactive) H/O dilation and curettage (Inactive) History of placement of ear tubes (Inactive) History of tonsillectomy (Inactive) Status post right foot surgery (Inactive) bladder lift (Inactive) rectal reconstruction (Inactive) Family History Mother Diabetes Hypertension Grandmother Rheumatoid arthritis Heart disease Father Hypertension Grandfather Heart disease Social History Smoking Status: Former smoker alcohol intake: never substance use type: does not use what type of physical activity do you participate in: weight training, walking, swimming frequency: 3-4 times per week HPI RIGHT KNEE: Details: OUOMU MARTINEZ is a 53 year old F here today for right anterior knee pain, she can only ambulate with the brace on. She had a fall in February that she notes may have been the origination of her pain, she had a twisting injury from a hole in the ground. She has not done any PT and is ambulating with a walker due to the foot surgery on the left. She complains of increased pain with standing or in extension. She states that the popping and instability increasing when not in the brace. She has pain with quad contraction when the brace if off as well. Denies numbness, tingling or other associated symptoms. Ortho Exam Right Knee Skin/Wound: Yes CDI Contralateral Normal: Yes Knee ROM: Yes ROM-Extension -20 to 0, Yes ROM-Flexion 0-140 Examination: Yes Pain with extention, Yes Med jt line tenderness, Yes Karissa's Test KNEE: audible clicking Assessment AND Plan 1. 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 Patient is failed conservative treatment as the locking is getting worse she would like to get an MRI to see if this is something surgically that needs to be addressed. This note was generated with [employer] dictation software. It may contain incorrect words, spelling, and punctuation that were not noted in checking the note before signing. Discussed the need for an MRI to eval the reason for the instability, gave the [facility] knee program for her HEP and instructed to work on strengthening. Follow up after the MRI or sooner if pain, swelling, numbness or associated symptoms, or concerns develop. All questions answered. Patient in agreement of plan. 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 09/16/18 1239 <Electronically signed by Kym Conrad DO> Date Kym Conrad DO Cosigner Signature: Date (if applicable) CC: ORTHOPEDIC VISIT Observed: 07/18/2018 Status: F Source: LEE REPORT 12:27 PM [facility] REPOSITORY [facility] Orthopaedics AND Sports Medicine [address] [place] [address] OFFICE VISIT Date of Service: 06/28/18 MR#: [id number] Acct: [id number] Name: OUMOU MARTINEZ Rep #: [id number] : 1965 Provider: Kym Conrad DO Age/Sex: 53/F Location: [facility] [place] [place] Status: Signed Intake Intake Visit Reasons: RIGHT KNEE Is patient in pain?: Yes Allergies gabapentin Allergy (Mild, Verified 06/28/18 15:09) sedation hydroxychloroquine [From Plaquenil] Allergy (Verified 06/28/18 15:09) Rash THYROID MEDICATION Allergy (Uncoded 06/25/18 07:52) Rash Medications Amlodipine [Norvasc] 10 mg PO QHS 02/05/16 [History Confirmed 06/10/18] Hydrochlorothiazide 12.5 mg PO PRN PRN 01/22/17 [History Confirmed 06/10/18] Lisinopril [Zestril] 20 mg PO DAILY 01/22/17 [History Confirmed 06/10/18] Simvastatin [Zocor] 20 mg PO QHS 01/22/17 [History Confirmed 06/10/18] traMADol [Ultram] 50 mg PO BID 01/22/17 [History Confirmed 06/10/18] cyclobenzaprine 10 mg tablet 10 mg PO PRN PRN 10/12/17 [History Confirmed 06/10/18] levothyroxine 100 mcg tablet 75 mcg PO DAILY tab 10/12/17 [History Confirmed 06/10/18] Bacillus Coagulans [Digestive Advantage] 1 ea PO TID PRN 03/15/18 [History Confirmed 06/10/18] Black Cohosh 540 mg PO BID 03/15/18 [History Confirmed 06/10/18] Cholecalciferol (Vitamin D3) [Vitamin D3] 2,000 unit PO DAILY 03/15/18 [History Confirmed 06/10/18] Loratadine [Claritin] 10 mg PO DAILY #30 tab 06/25/18 [Rx] Meclizine HCl [Antivert] 25 mg PO 4X/DAY PRN PRN #20 tab 06/25/18 [Rx] PFSH Medical History Cervical cancer (Acute) GERD (gastroesophageal reflux disease) (Acute) Graves disease (Acute) Spinal stenosis (Acute) Whiplash (Acute) Fibromyalgia (Chronic) IBS (irritable bowel syndrome) (Chronic) Surgical History History of foot surgery (Acute) History of tonsillectomy (Acute) H/O LEEP (Inactive) H/O dilation and curettage (Inactive) History of placement of ear tubes (Inactive) History of tonsillectomy (Inactive) Status post right foot surgery (Inactive) bladder lift (Inactive) rectal reconstruction (Inactive) Family History Mother Diabetes Hypertension Grandmother Rheumatoid arthritis Heart disease Father Hypertension Grandfather Heart disease Social History Smoking Status: Former smoker alcohol intake: never substance use type: does not use what type of physical activity do you participate in: weight training, walking, swimming frequency: 3-4 times per week HPI RIGHT KNEE: Details: OUMOU MARTINEZ is a 53 year old F here today for right knee pain. Patient notes that her knee has been painful since February 18 when she fell on her knee. Patient had bruising over her knee. She started why weight program when she noticed a locking of her knee. Patient has pain in the inside of her knee. She notes that she pivoted last week, felt a pop and then her pain has subsided since. She notes that she had left foot surgery the end of May and has been full weightbearing on her right knee. She denies any swelling. Patient denies any xrays, injections or MRI. ROS Const Reports system reviewed and no additional complaints, except as docu Eyes Reports system reviewed and no additional complaints, except as docu ENT Reports system reviewed and no additional complaints, except as docu Card Reports system reviewed and no additional complaints, except as docu Resp Reports system reviewed and no additional complaints, except as docu GI Reports system reviewed and no additional complaints, except as docu Reports system reviewed and no additional complaints, except as docu Musc Reports joint pain Skin/Breast Reports system reviewed and no additional complaints, except as docu Neuro Yes system reviewed and no additional complaints, except as docu Psych Reports system reviewed and no additional complaints, except as docu Endo Reports system reviewed and no additional complaints, except as docu Assessment AND Plan 1. Right knee pain M25.561 Plan Patient really looks like she is got a medial meniscus tear on exam. However due the fact that she just had surgery on her foot patient is not looking for another surgery. I would like to give her an injection however to see if this calms down some of the pain. But again because of her foot surgery no longer an injection to soon postoperatively. Patient told to return for 6-week postop visit and then will give an injection at that point as long as she confers with her foot doctor that it is okay. X-rays were reviewed. There is no obvious fracture, dislocation, or lucency noted but there is a loose body. On exam she has pain in the medial joint, she would benefit today from a steroid injection but she is too acutely post op from left foot surgery. She would be a good candidate for Mi-Eye as opposed to an MRI due to her recent surgery and pins. Today we will put her in a hinged brace. Follow up as needed or sooner if pain, swelling, numbness or associated symptoms, or concerns develop. All questions answered. Patient in agreement of plan. Orders Orders: 2. 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 Age/Sex: 53/F Location: [facility] [place] Status: Signed Intake Vital Signs06/16/18 Height 5 ft 4 in 06/16/18 Weight: 211 lb 06/16/18 Body Mass Index (BMI) 36.2 Intake Visit Reasons: low back pain Chief Complaint: L sided low back pain Is patient in pain?: Yes Allergies gabapentin Allergy (Mild, Verified 06/28/18 15:09) sedation hydroxychloroquine [From Plaquenil] Allergy (Verified 06/28/18 15:09) Rash THYROID MEDICATION Allergy (Uncoded 06/25/18 07:52) Rash Medications Amlodipine [Norvasc] 10 mg PO QHS 02/05/16 [History Confirmed 06/10/18] Hydrochlorothiazide 12.5 mg PO PRN PRN 01/22/17 [History Confirmed 06/10/18] Lisinopril [Zestril] 20 mg PO DAILY 01/22/17 [History Confirmed 06/10/18] Simvastatin [Zocor] 20 mg PO QHS 01/22/17 [History Confirmed 06/10/18] traMADol [Ultram] 50 mg PO BID 01/22/17 [History Confirmed 06/10/18] cyclobenzaprine 10 mg tablet 10 mg PO PRN PRN 10/12/17 [History Confirmed 06/10/18] levothyroxine 100 mcg tablet 75 mcg PO DAILY tab 10/12/17 [History Confirmed 06/10/18] Bacillus Coagulans [Digestive Advantage] 1 ea PO TID PRN 03/15/18 [History Confirmed 06/10/18] Black Cohosh 540 mg PO BID 03/15/18 [History Confirmed 06/10/18] Cholecalciferol (Vitamin D3) [Vitamin D3] 2,000 unit PO DAILY 03/15/18 [History Confirmed 06/10/18] Loratadine [Claritin] 10 mg PO DAILY #30 tab 06/25/18 [Rx] Meclizine HCl [Antivert] 25 mg PO 4X/DAY PRN PRN #20 tab 06/25/18 [Rx] PFSH Medical History Cervical cancer (Acute) GERD (gastroesophageal reflux disease) (Acute) Graves disease (Acute) Spinal stenosis (Acute) Whiplash (Acute) Fibromyalgia (Chronic) IBS (irritable bowel syndrome) (Chronic) Surgical History History of foot surgery (Acute) History of tonsillectomy (Acute) H/O LEEP (Inactive) H/O dilation and curettage (Inactive) History of placement of ear tubes (Inactive) History of tonsillectomy (Inactive) Status post right foot surgery (Inactive) bladder lift (Inactive) rectal reconstruction (Inactive) Family History Mother Diabetes Hypertension Grandmother Rheumatoid arthritis Heart disease Father Hypertension Grandfather Heart disease Social History Smoking Status: Former smoker alcohol intake: never substance use type: does not use what type of physical activity do you participate in: weight training, walking, swimming frequency: 3-4 times per week HPI low back pain : Chief Complaint: Low back pain Visit Number: 11 Details: OUMOU MARTINEZ is a 53 year old F who presents with decreased low back pain. She states at times when bending she is experiencing a catching sensation where she feels Stuck. Today Oumou rates her pain a 3/10 and describes it as a sore ache that bands across the low back. Walking, bending, lifting, and twisting cause increased pain, although she denies any numbness, tingling, or radiculopathy. Location: low back pain Duration: intermittent Aggravating or associated factors: bending, lifting, twisting and roation Relieving factors: chiro Pain Quality: aching, dull, cramping, sharp Exam Musc General: Yes normal posture, joint tenderness (T6, T7, L3,L5, L SI) and decreased ROM; no normal gait (favors L hip) Thoracic/Lumbar Spine: thor and lumb spine abnorm to inspection (L post rotation of pelvis), pain with thoraco-lumbar ROM, paraspinal tenderness (slightly improved), thoraco-lumbar ROM limited, thoraco-lumbar spasm bilaterally in the lower lumbar, in the mid lumbar, in the mid thoracic and in the lower thoracic Sacroiliac joints: on the left Office Procedures Chiropractic Treatments Procedures Manipulation: 3-4 regions (T6, L3,L5, LIL) Assessment AND Plan Problems 1. Segmental and somatic dysfunction of thoracic region M99.02 2. Segmental and somatic dysfunction of lumbar region M99.03 3. Segmental and somatic dysfunction of pelvic region M99.05 Plan Continue with treatment plan. Orders Orders: Plan Detail Goals Decrease pain and inflammation Barriers RA Follow Up 1 Week Coding Level of Care Code No Charge Diagnoses Segmental and somatic dysfunction of thoracic region M99.02 Segmental and somatic dysfunction of lumbar region M99.03 Segmental and somatic dysfunction of pelvic region M99.05 Additional Codes Procedures - Manipulation: 3-4 regions (15559) 07/04/18 1013 <Electronically signed by Valerie Kyle D.C.> Date Valerie Kyle D.C. Cosigner Signature: Date (if applicable) CC: KNEE 4 OR MORE Observed: 06/28/2018 Status: F Source: LEE JIN 3:15 PM [facility] REPOSITORY [facility] Imaging Services [address] [place] [address] Knee 4 or More Views MR#: [id number] Acct: [id number] Name: HARJEETOUMOU L Rep #: [id number] : 1965 F 53 From: Adalid Quinonez MD PCP: Silverio Landry DO Status: REG CLI Study: Knee 4 or More Views Date of Exam: 06/28/18 Exam# [id number] Ordering Dr: Kym Conrad DO STUDY: X-RAY - RIGHT KNEE REASON FOR EXAM: Pain, no specific injury. TECHNIQUE: 4 view(s) of the knee. COMPARISON: None. FINDINGS: Normal visualized distal femur. Normal visualized proximal tibia and fibula. Normal proximal tibiofibular articulation. There is mild joint space narrowing of the medial femorotibial compartment. Normal lateral femorotibial compartment. There is moderate joint space narrowing of the patellofemoral articulation. The soft tissue structures are unremarkable. RAD/Knee 4 or More Views IMPRESSION: Arthrosis of the medial femorotibial and patellofemoral compartments. Electronically Signed: Adalid Quinonez MD at 15:49 EDT Tel , Service support , CC: Kym Conrad DO; Silverio Landry DO Coal Cager: Signed EMERGENCY DEPARTMENT Observed: 06/25/2018 Status: F Source: [place] [place] SUMMARY 9:26 AM [facility] REPOSITORY [facility] Medical Records Department [address] [place] [address] Emergency Department Summary 06/25/18 0811 MR#: [id number] Acct: [id number] Name: OUMOU MARTINEZ Rep #: [id number] : 1965 53 From: Manny Puckett PCP: Silverio Landry DO Status: DEP ER - ER Visit Summary Date of Service: 06/25/18 Chief Complaint: Dizziness History of Present Illness: The patient is a 53 F sudden dizziness after awakening at 6:30 AM this morning. Worsen with eyes closed. Feels like she is spinning. No nausea or vomiting. No visual changes. Patient status post left foot arthrodesis by Dr. Collins on June 17. This was elective procedure. Using oxycodone every 6 hours. This morning at 430, took her oxycodone additional Flexeril for spasms which is provided by her insurance claim auditor. In addition use Jimbo-Synephrine spray due to use of a CPAP to help clear the sinus airways. Denies any lightheaded symptoms. States able to go back to sleep however awaken with the symptoms. No ear pain or ringing. Denies previous similar symptoms in the past. Patient called covering insurance claim auditor told to go the ED. Physical Examination: General: Alert and oriented 3, no acute distress HEENT: Normocephalic, atraumatic. Moist mucosa membranes. Pupils equal reactive to light, extraocular muscles intact. TMs normal bilaterally. Neck: supple, nontender. Cardiovascular: Regular rate and rhythm, no murmurs Respiratory: Normal breath sounds, symmetric, no distress Abdomen: Soft, nontender, nondistended Extremities: Nontender, no edema, pulses intact 4 Neuro: Positive [place]-Hallpike to the right. Test Results: [] Emergency Department Course and Treatment: Patient with a positive [place]-Hallpike to the right, concerns for benign vertigo. Ansley maneuver performed in the emergency department with improvement. However she developed her sinus congestion. History of hypertension. Patient was placed on loratadine daily without decongestions due to to using a nasal CPAP. As needed Antivert written. Podiatry, Dr. Lewis contacted to update. Treatment Plan: [] Disposition: Discharge Impression: 1. Acute vertigo 2. Sinus congestion This note was generated with [employer] software. It may contain incorrect words, spelling, and punctuation that were not noted in review of the chart prior to signing ED Disposition - Plan for ED Patient: Disposition: Home or Assisted Living Chief Complaint: Dizziness Diagnosis: Vertigo, Sinus congestion Instructions: ED BPV Vertigo Prescriptions: RX: Loratadine [Claritin] 10 mg PO DAILY #30 tablet Meclizine HCl [Antivert] 25 mg PO 4X/DAY PRN PRN #20 tablet PRN Reason: Dizziness Referrals: Silverio Landry DO [Primary Care Provider] - 3-5 Days Additional Instructions: May perform ansley maneuver if symptoms return prior to using medication. Use allergy medicine daily for sinus congestion. What to do if you have Problems For any increased pain, shortness of breath, bleeding, nausea or vomiting, chest pain, or any unexpected problems, contact your Primary Care Provider. Call [facility] ([phone]) or report to the closest Emergency Room. Call 911 if necessary. 06/25/18925 <Electronically signed by Manny Puckett> Date Manny Puckett Cosigner Signature (If Indicated): Date CC: Silverio Landry DO OPERATIVE REPORT Observed: 06/17/2018 Status: F Source: [place] 2:[address] [facility] Medical Records Department [address] [place] [address] Operative Report 06/17/18 1027 MR#: [id number] Acct: [id number] Name: OUMOU MARTINEZ Rep #: [id number] : 1965 53 From: Radha Collins DPM PCP: Silverio Landry DO Status: [facility] Location: [facility] [place] Problem List (1) Left foot pain Status: Chronic (2) Arthritis, midfoot Status: Chronic Report of Operation Date of Procedure: 06/17/18 - Bioinformatician: Valerie Sheppard, PGY3. Surgeon: Radha Collins DPM Pre-Operative Diagnosis: left midfoot arthritis (rheumatoid). left foot pain Post-Operative Diagnosis: left midfoot arthritis (rheumatoid). left foot pain Surgery/Procedure Performed:: arthrodesis of 2 and 3 metatarsal cuneiform joints, left foot with bone graft and internal fixation. application and harvest of bone marrow aspirate of left lower extremity Description of Surgical Findings:: hemostasis controlled; well padded pneumatic tourniquet (315 mmHg, 110 minutes) complications: none materials: arthrex U-plate, 5 locking 3.0 screws, 3 non locking cortical 3.0 screws, arteriocyte bone marrow aspirate and PPP application, cancellous bone grafts (allograft) cement mason maintenance: none Type of Anesthesia:: General, Local - preop: 1:1 mix of 1% lidocaine plain and 0.5% marcaine plain left ankle block fashion, 10 cc intra op: same, 2 cc post op: same, 20 cc Specimen's removed: none Estimated Blood Loss (mL): < 100 mL Description of Procedure: Indications: This 53-year-old female with significant past medical history of inflammatory polyarthropathy, rheumatoid arthritis with positive rheumatoid factor, hypertension, fibromyalgia, spinal stenosis, hyperlipidemia, obesity, and hypothyroidism continues to have left foot pain. She has been treated for left midfoot arthritis for several years. Her pain has worsened with walking and weightbearing activities and this is affecting her ability to perform her daily activities. She has failed conservative care including rest, activity modification, injections, oral anti-inflammatory medications, rheumatological management with Dr. English, immobilization, modification of activities, and bracing. Clinically, she has pain on palpation to the dorsal second and third metatarsal cuneiform joints and the crepitation with passive motion is audible and palpable. Her neurovascular status remains intact. She demonstrates pain to both the dorsal and plantar aspect of the foot in this region. She has pain with ambulation and has decreased medial longitudinal arch. Her x-rays demonstrate decreased joint spaces and spurring to the tarsometatarsal articulation areas and there are no acute fractures. The preoperative indications, planned procedure, possible benefits, risks, complications, and anticipated healing time and management were discussed in detail with the patient. She understands and would like to proceed with surgery at this time. No guarantees were made. She understands complications may include but are not limited to the following: infection, delayed or nonhealing, hardware failure, over or under correction, loss of limb function, life, or limb, need for additional surgery, numbness, scarring, pain, allergic reaction, or blood clot. The informed surgical consent and surgical limb were signed. I answered all of her questions. Her preoperative diagnostic data was reviewed without any gross abnormalities to the CBC, CMP, TSH, free T4. Her vitamin D levels was also screened preoperatively and it was 46.2. Her preoperative history and physical exam including clearance were also reviewed. Procedure in detail: The patient was transported to the operating room via cart and placed on the operating table in the supine position. The anesthesia team initiated general anesthesia and the podiatry team injected local anesthetic as noted. Preoperative antibiotics were administered by the anesthesia team. Final verification of the patient, surgery, and limb designation was performed via the timeout procedure. The left lower extremity was bumped to allow good exposure. A well-padded pneumatic left thigh tourniquet was placed. The left lower extremity was then prepped and draped in the usual aseptic manner. Surgery began as a following: Attention was first directed to the medial aspect of the tibial tuberosity in which a 1 cm linear incision was made in the skin over this area and blunt dissection was performed down to the bone with a hemostat. Two cc of local anesthetic was administered prior to making this incision. A trocar was carefully entered and approximately 40 mL of bone marrow aspirate healthy in appearance was extracted. This was further spun down and prepared according to arteriocyte protocol for later incorporation with bone graft at the arthrodesis site of the foot. This site was then irrigated with normal saline and nylon was used to reapproximate the skin. Next, an intraoperative Doppler was used to map out the path of the dorsalis pedis and this was avoided. An Esmarch bandage was next used to exsanguinate the limb and the tourniquet was inflated at this time (315 mmHg). Attention was next directed to the dorsal aspect of the left foot in which a curvilinear incision was performed to later expose the second and third tarsometatarsal articulations. Care was taken to identify, protect, and retract all neurovascular structures at this time and throughout the remainder of the surgery. Blunt dissection was performed and the extensor tendons were also identified and retracted. The joints of interest were identified and were incised with a 15 blade scalpel. It was noted that the second metatarsal cuneiform articulation was mobile and there was dorsal spurring noted. There was significant destruction of this joint including fissuring, partial violation of the subchondral plate, and discoloration consistent with arthritis. The dorsal exostosis was removed with an osteotome and the articular surfaces were directly visualized. The joint surface was denuded with osteotomes, curettes, and sagittal saw until healthy bleeding bone was visible. Good access and visualization was achieved with the mini joint distractor. Next access to the third metatarsal cuneiform joint was identified and the same findings were noted. Subchondral drilling was performed to further stimulate arthrodesis success at both sites. This joint was additionally prepared for arthrodesis in the same manner. Next, crushed cancellous bone chips were mixed with bone marrow aspirate in a concentrated manner and packed into the joint spaces and temporary fixation was applied. Intraoperative fluoroscopy was utilized to confirm appropriate placement of the Arthrex U- plate. The plate was next locked in place proximally with locking screws and care was taken to utilize proper AO fixation technique. Next cortical screws were applied to the oblong holes of each long arm of the plate that extended over the second and third metatarsals to allow compression via eccentric drilling. This was visualized with intraoperative fluoroscopy and also clinically. Additional locking and cortical screws were placed proximally and distal for additional stabilization. The surgical wound was then irrigated with normal saline and additional bone marrow aspirate and PRP was placed into the wound bed during closure. The tourniquet was deflated and capillary refill time was brisk to all digits of the left foot; there was no pulsatile bleeding noted. The deep wound was reapproximated with 2-0 and 3-0 Vicryl. The skin was reapproximated utilizing horizontal mattress and simple suture technique with 4-0 nylon. A postoperative injection was administered at this time as noted above. A postoperative dressing consisting of Betadine soaked Adaptic, gauze, and Kerlix was applied. Next, a well-padded posterior fiberglass mold was applied with the foot in neutral position for additional support and edema control; this was secured with an TANYA wrap. Again, intraoperative fluoroscopy was utilized to confirm full reduction of the arthrodesis site and proper placement and trajectory of all hardware. It is also noted that there were no acute injuries noted. After procedure: The patient tolerated the procedure and anesthesia well and transported to PACU with vital signs stable and vascular status intact to the left lower extremity. Postoperative x-rays were formally ordered prior to her release home. She will be discharged home upon continued stability and was advised to remain strictly nonweightbearing to the left lower extremity. She has a walker and knee roller at home. She was also advised to ice and elevate for pain and inflammation management. She has a prescription for Percocet to take as needed in a safe manner for pain control. She was advised to keep her dressing and splint clean, dry, and intact until [facility]-up [facility]. Her postoperative orders were entered electronically. Radha Collins DPM, [facility] 06/17/18 1459 <Electronically signed by Radha Collins DPM> Date Radha Collins DPM CC: Radha Collins DPM; Silverio Landry DO Signed FOOT MIN 3 VIEWS Observed: 06/17/2018 Status: F Source: [place] 10:29 AM [facility] REPOSITORY [facility] Imaging Services [address] [place] [address] Foot min 3 Views MR#: [id number] Acct: [id number] Name: OUMOU MARTINEZ Rep #: [id number] : 1965 F 53 From: Hammad Roberts MD PCP: Silverio Landry DO Status: [facility] Study: Foot min 3 Views Date of Exam: 06/17/18 Exam# [id number] Ordering Dr: Radha Collins DPM STUDY: X-RAY - LEFT FOOT CLINICAL: Female, 53 years old. Status post arthrodesis. TECHNIQUE: 3 view(s) of the foot. COMPARISON: Comparison is made with prior examination earlier in the day. FINDINGS: The patient is status post fusion at the second and third tarsal metatarsal joints using screw and plate fixation. Postoperative soft tissue changes. RAD/Foot min 3 Views IMPRESSION: Status post arthrodesis of the second and third tarsometatarsal joints. Electronically Signed: Hammad Roberts MD at 13:08 EDT Tel [phone], Service support , CC: Radha Collins DPM; Silverio Landry DO Coal Cager: Signed DISCHARGE INSTRUCTION Observed: 06/17/2018 Status: F Source: [place] 10:21 AM [facility] REPOSITORY [facility] Medical Records Department [address] [place] [address] Instructions for Home/Discharge Instructions 06/17/18 1020 MR#: [id number] Acct: [id number] Name: OUMOU MARTINEZ Rep #: [id number] : 1965 53 From: Radha Collins DPM PCP: Silverio Landry DO Status: REG SDC Discharge Diet: No Restrictions Discharge Activity: May not drive while taking narcotic pain medications. Weight Bearing Status: No weight bearing - use knee roller and walker Keep extremity elevated above heart level: Left Leg Call your doctor if your incision/area has: Continuous Slow Oozing, Sudden Increased Bleeding, Increased Pain/ Swelling, Increased Redness, Foul Smelling Discharge, Swelling at the incision site Call your doctor if you observe: Fever of 101 or Higher, Numbness or Tingling, Chest pain, Calf discomfort, Uncontrolled pain Cleanse incision/area with: Keep Dressing Clean AND Dry Allergies/Adverse Reactions: Allergies gabapentin Allergy (Mild, Verified 06/10/18 13:06) sedation hydroxychloroquine [From Plaquenil] Allergy (Verified 06/10/18 13:06) Rash THYROID MEDICATION Allergy (Uncoded 06/10/18 13:06) Rash Medications to take at Discharge Amlodipine [Norvasc] 10 mg PO QHS 02/05/16 Hydrochlorothiazide 12.5 mg PO PRN PRN 01/22/17 Lisinopril [Zestril] 20 mg PO DAILY 01/22/17 Simvastatin [Zocor] 20 mg PO QHS 01/22/17 traMADol [Ultram] 50 mg PO BID 01/22/17 cyclobenzaprine 10 mg tablet 10 mg PO PRN PRN 10/12/17 levothyroxine 100 mcg tablet 75 mcg PO DAILY tab 10/12/17 Bacillus Coagulans [Digestive Advantage] 1 each PO TID PRN 03/15/18 Black Cohosh 540 mg PO BID 03/15/18 Cholecalciferol (Vitamin D3) [Vitamin D3] 2,000 unit PO DAILY 03/15/18 Primary Care Physician: Silverio Landry DO [Primary Care Provider] - Test Results: Test results from this visit will be discussed in further detail at your follow-up appointment, if applicable. Please Follow Up With: Radha Collins DPM When: 1 week [facility] [phone]. Call sooner if questions. Proposed Discharge Date: 06/17/18 06/17/18 1021 <Electronically signed by Radha Collins DPM> Date Radha Collins DPM CC: Silverio Landry DO FOOT MIN 3 VIEWS Observed: 06/17/2018 Status: F Source: [place] 12:24 AM [facility] REPOSITORY [facility] Imaging Services [address] [place] [address] Foot min 3 Views MR#: [id number] Acct: [id number] Name: OUMOU MARTINEZ Rep #: [id number] : 1965 F 53 From: Hammad Roberts MD PCP: Silverio Landry DO Status: [facility] Study: Foot min 3 Views Date of Exam: 06/17/18 Exam# [id number] Ordering Dr: Radha Collins DPM STUDY: X-RAY - LEFT FOOT CLINICAL: Female, 53 years old. Arthrodesis of the second and third metatarsal articulation. TECHNIQUE: 2 coned down intraoperative view(s) of the foot. COMPARISON: Comparison is made with prior examination dated March 20, 2014. FINDINGS: The patient is status post arthrodesis of the second and third tarsal metatarsal joint. RAD/Foot min 3 Views IMPRESSION: Arthrodesis of the second and third tarsometatarsal joints with screw and plate fixation device. Electronically Signed: Hammad Roberts MD at 13:05 EDT Tel [phone], Service support , CC: Radha Collins DPM; Silverio Landry DO Coal Cager: Signed CHIROPRACTIC REPORT Observed: 06/15/2018 Status: F Source: [place] 10:18 AM [facility] [address] [place] [address] OFFICE VISIT Date of Service: 06/14/18 MR#: [id number] Acct: [id number] Name: OUMOU MARTINEZ Rep #: [id number] : 1965 Provider: Valerie Kyle D.C. Age/Sex: 53/F Location: [facility] Status: Signed Intake Vital Signs06/14/18 Height 5 ft 4 in 06/14/18 Weight: 211 lb 06/14/18 Body Mass Index (BMI) 36.2 Intake Visit Reasons: low back pain Chief Complaint: L sided low back pain Is patient in pain?: Yes Allergies gabapentin Allergy (Mild, Verified 06/10/18 13:06) sedation hydroxychloroquine [From Plaquenil] Allergy (Verified 06/10/18 13:06) Rash THYROID MEDICATION Allergy (Uncoded 06/10/18 13:06) Rash Medications Amlodipine [Norvasc] 10 mg PO QHS 02/05/16 [History Confirmed 06/10/18] Hydrochlorothiazide 12.5 mg PO PRN PRN 01/22/17 [History Confirmed 06/10/18] Lisinopril [Zestril] 20 mg PO DAILY 01/22/17 [History Confirmed 06/10/18] Simvastatin [Zocor] 20 mg PO QHS 01/22/17 [History Confirmed 06/10/18] traMADol [Ultram] 50 mg PO BID 01/22/17 [History Confirmed 06/10/18] cyclobenzaprine 10 mg tablet 10 mg PO PRN PRN 10/12/17 [History Confirmed 06/10/18] levothyroxine 100 mcg tablet 75 mcg PO DAILY tab 10/12/17 [History Confirmed 06/10/18] Bacillus Coagulans [Digestive Advantage] 1 ea PO TID PRN 03/15/18 [History Confirmed 06/10/18] Black Cohosh 540 mg PO BID 03/15/18 [History Confirmed 06/10/18] Cholecalciferol (Vitamin D3) [Vitamin D3] 2,000 unit PO DAILY 03/15/18 [History Confirmed 06/10/18] [facility] Medical History Cervical cancer (Acute) GERD (gastroesophageal reflux disease) (Acute) Graves disease (Acute) Spinal stenosis (Acute) Whiplash (Acute) Fibromyalgia (Chronic) IBS (irritable bowel syndrome) (Chronic) Surgical History History of foot surgery (Acute) History of tonsillectomy (Acute) H/O LEEP (Inactive) H/O dilation and curettage (Inactive) History of placement of ear tubes (Inactive) History of tonsillectomy (Inactive) Status post right foot surgery (Inactive) bladder lift (Inactive) rectal reconstruction (Inactive) Family History Mother Diabetes Hypertension Grandmother Rheumatoid arthritis Heart disease Father Hypertension Grandfather Heart disease Social History Smoking Status: Former smoker alcohol intake: never substance use type: does not use what type of physical activity do you participate in: weight training, walking, swimming frequency: 3-4 times per week HPI low back pain : Chief Complaint: Low back pain Visit Number: 10 Details: OUMOU MARTINEZ is a 53 year old F who present with decreased low back pain. She states that over all her pain has decreased, leaving her with a dull ache that bands across the low back. Walking, and bending still cause increased pain with a catching sensation. Today Oumou rates her pain a 2/10 and describes it as a dull ache that bands across the low back, she denies any numbness, tingling, or radiculopathy. Currently both of her lower limbs are swollen and sore. She is following up with her PCP to be evaluated. Location: low back Duration: intermittent Aggravating or associated factors: bending and prolonged walking Relieving factors: chiro Pain Quality: aching, dull, cramping Exam Musc General: Yes normal posture, joint tenderness (T6, T7, L3,L5, L SI) and decreased ROM; no normal gait (favors L hip) Thoracic/Lumbar Spine: thor and lumb spine abnorm to inspection (L post rotation of pelvis), pain with thoraco-lumbar ROM, paraspinal tenderness (slightly improved) bilaterally in the mid thoracic, in the lower lumbar and in the mid lumbar, thoraco- lumbar ROM limited, thoraco-lumbar spasm bilaterally in the lower lumbar, in the mid lumbar and in the mid thoracic Sacroiliac joints: on the left Office Procedures Chiropractic Treatments Procedures Manipulation: 3-4 regions (T6, L3,L5, LIL) Assessment AND Plan 1. Segmental and somatic dysfunction of thoracic region M99.02 Orders Orders: 2. Segmental and somatic dysfunction of lumbar region M99.03 Orders Orders: 3. Segmental and somatic dysfunction of pelvic region M99.05 Orders Orders: Plan Detail Goals Decrease pain and inflammation Barriers RA Follow Up PRN Coding Level of Care Code No Charge Diagnoses Segmental and somatic dysfunction of thoracic region M99.02 Segmental and somatic dysfunction of lumbar region M99.03 Segmental and somatic dysfunction of pelvic region M99.05 Additional Codes Procedures - Manipulation: 3-4 regions ([id number]) 06/15/18 1018 <Electronically signed by Valerie Kyle D.C.> Date Valerie Kyle D.C. Cosigner Signature: Date (if applicable) CC: CHIROPRACTIC REPORT Observed: 06/14/2018 Status: F Source: [place] 8:12 AM [facility] [address] [place] [id number] OFFICE VISIT Date of Service: 06/07/18 MR#: [id number] Acct: [id number] Name: OUMOU MARTINEZ Rep #: [id number] : 1965 Provider: Valerie Kyle D.C. Age/Sex: 53/F Location: [facility] Status: Signed Intake Vital Signs06/07/18 Height 5 ft 4 in 06/07/18 Weight: 211 lb 06/07/18 Body Mass Index (BMI) 36.2 Intake Visit Reasons: low back pain Chief Complaint: L sided low back pain Is patient in pain?: Yes Allergies gabapentin Allergy (Mild, Verified 06/10/18 13:06) sedation hydroxychloroquine [From Plaquenil] Allergy (Verified 06/10/18 13:06) Rash THYROID MEDICATION Allergy (Uncoded 06/10/18 13:06) Rash Medications Amlodipine [Norvasc] 10 mg PO QHS 02/05/16 [History Confirmed 06/10/18] Hydrochlorothiazide 12.5 mg PO PRN PRN 01/22/17 [History Confirmed 06/10/18] Lisinopril [Zestril] 20 mg PO DAILY 01/22/17 [History Confirmed 06/10/18] Simvastatin [Zocor] 20 mg PO QHS 01/22/17 [History Confirmed 06/10/18] traMADol [Ultram] 50 mg PO BID 01/22/17 [History Confirmed 06/10/18] cyclobenzaprine 10 mg tablet 10 mg PO PRN PRN 10/12/17 [History Confirmed 06/10/18] levothyroxine 100 mcg tablet 75 mcg PO DAILY tab 10/12/17 [History Confirmed 06/10/18] Bacillus Coagulans [Digestive Advantage] 1 ea PO TID PRN 03/15/18 [History Confirmed 06/10/18] Black Cohosh 540 mg PO BID 03/15/18 [History Confirmed 06/10/18] Cholecalciferol (Vitamin D3) [Vitamin D3] 2,000 unit PO DAILY 03/15/18 [History Confirmed 06/10/18] [facility] Medical History Cervical cancer (Acute) GERD (gastroesophageal reflux disease) (Acute) Graves disease (Acute) Spinal stenosis (Acute) Whiplash (Acute) Fibromyalgia (Chronic) IBS (irritable bowel syndrome) (Chronic) Surgical History History of foot surgery (Acute) History of tonsillectomy (Acute) H/O LEEP (Inactive) H/O dilation and curettage (Inactive) History of placement of ear tubes (Inactive) History of tonsillectomy (Inactive) Status post right foot surgery (Inactive) bladder lift (Inactive) rectal reconstruction (Inactive) Family History Mother Diabetes Hypertension Grandmother Rheumatoid arthritis Heart disease Father Hypertension Grandfather Heart disease Social History Smoking Status: Former smoker alcohol intake: never substance use type: does not use what type of physical activity do you participate in: weight training, walking, swimming frequency: 3-4 times per week HPI low back pain : Chief Complaint: Low back pain Visit Number: 9 Details: OUMOU MARTINEZ is a 53 year old F who presents with low back pain. She states that after her last treatment her pain decreased, leaving her with a dull ache, although when exercising earlier this week she noticed a pop in the back followed by a pain. Today Oumou rates her pain a 2/10 and describes it as a dull ache that bands across the low back, bending, lifting, and twisting all causes increased pain although she denies any numbness, tingling, or radiculopathy. Location: low back Duration: intermittent Aggravating or associated factors: bending, lifting, and twisting Relieving factors: chiro Pain Quality: aching, dull, cramping Exam Musc General: Yes normal posture, joint tenderness (L3-L5, L SI) and decreased ROM; no normal gait (favors L hip) Thoracic/Lumbar Spine: thor and lumb spine abnorm to inspection (L post rotation of pelvis), pain with thoraco-lumbar ROM with forward flexion and with lateral flexion to the left, paraspinal tenderness on the left greater than right (QL, Piriformis), thoraco-lumbar ROM limited with forward flexion and with lateral flexion to the left, thoraco-lumbar spasm on the left greater than right (L QL, L piriformis) Sacroiliac joints: on the left Office Procedures Chiropractic Treatments Procedures Manipulation: 3-4 regions (T10, L3, L5, LIL) Assessment AND Plan 1. Segmental and somatic dysfunction of thoracic region M99.02 Orders Orders: 2. Segmental and somatic dysfunction of lumbar region M99.03 Orders Orders: 3. Segmental and somatic dysfunction of pelvic region M99.05 Orders Orders: Plan Detail Goals Decrease pain and inflammation Barriers RA Follow Up 1 x week Coding Level of Care Code No Charge Diagnoses Segmental and somatic dysfunction of thoracic region M99.02 Segmental and somatic dysfunction of lumbar region M99.03 Segmental and somatic dysfunction of pelvic region M99.05 Additional Codes Procedures - Manipulation: 3-4 regions ([id number]) 06/14/18 0812 <Electronically signed by Valerie Kyle D.C.> Date Valerie Kyle D.C. Cosigner Signature: Date (if applicable) CC: CHIROPRACTIC REPORT Observed: 06/13/2018 Status: F Source: [place] 8:35 AM [facility] [address] [place] [address] OFFICE VISIT Date of Service: 06/09/18 MR#: [id number] Acct: [id number] Name: OUMOU MARTINEZ Rep #: [id number] : 1965 Provider: Valerie Kyle D.C. Age/Sex: 53/F Location: [facility] Status: Signed Intake Vital Signs06/09/18 Height 5 ft 4 in 06/09/18 Weight: 211 lb 06/09/18 Body Mass Index (BMI) 36.2 Intake Visit Reasons: low back pain Chief Complaint: L sided low back pain Is patient in pain?: Yes Allergies gabapentin Allergy (Mild, Verified 06/10/18 13:06) sedation hydroxychloroquine [From Plaquenil] Allergy (Verified 06/10/18 13:06) Rash THYROID MEDICATION Allergy (Uncoded 06/10/18 13:06) Rash Medications Amlodipine [Norvasc] 10 mg PO QHS 02/05/16 [History Confirmed 06/10/18] Hydrochlorothiazide 12.5 mg PO PRN PRN 01/22/17 [History Confirmed 06/10/18] Lisinopril [Zestril] 20 mg PO DAILY 01/22/17 [History Confirmed 06/10/18] Simvastatin [Zocor] 20 mg PO QHS 01/22/17 [History Confirmed 06/10/18] traMADol [Ultram] 50 mg PO BID 01/22/17 [History Confirmed 06/10/18] cyclobenzaprine 10 mg tablet 10 mg PO PRN PRN 10/12/17 [History Confirmed 06/10/18] levothyroxine 100 mcg tablet 75 mcg PO DAILY tab 10/12/17 [History Confirmed 06/10/18] Bacillus Coagulans [Digestive Advantage] 1 ea PO TID PRN 03/15/18 [History Confirmed 06/10/18] Black Cohosh 540 mg PO BID 03/15/18 [History Confirmed 06/10/18] Cholecalciferol (Vitamin D3) [Vitamin D3] 2,000 unit PO DAILY 03/15/18 [History Confirmed 06/10/18] [facility] Medical History Cervical cancer (Acute) GERD (gastroesophageal reflux disease) (Acute) Graves disease (Acute) Spinal stenosis (Acute) Whiplash (Acute) Fibromyalgia (Chronic) IBS (irritable bowel syndrome) (Chronic) Surgical History History of foot surgery (Acute) History of tonsillectomy (Acute) H/O LEEP (Inactive) H/O dilation and curettage (Inactive) History of placement of ear tubes (Inactive) History of tonsillectomy (Inactive) Status post right foot surgery (Inactive) bladder lift (Inactive) rectal reconstruction (Inactive) Family History Mother Diabetes Hypertension Grandmother Rheumatoid arthritis Heart disease Father Hypertension Grandfather Heart disease Social History Smoking Status: Former smoker alcohol intake: never substance use type: does not use what type of physical activity do you participate in: weight training, walking, swimming frequency: 3-4 times per week HPI low back pain: Chief Complaint: low back pain Visit Number: 9 Details: OUMOU MARTINEZ is a 53 year old F who presents with low back pain. She states that today her foot is hurting, causing her gait to be off therefore leading to increased low back pain. Today the pain is rated a 3/10 and described as a tight and deep ache. Walking, bending, and rotation cause increased pain, which can become sharp. The patient states that her neck pain has subsided, leaving her with only a tightness, Oumou denies any numbness, tingling, or radiculopathy. Location: neck and low back Duration: intermittent Aggravating or associated factors: foot pain, bending and lifting Relieving factors: chiro Pain Quality: aching, dull, cramping, sharp Exam Musc General: Yes normal posture, joint tenderness (L3-L5, L SI) and decreased ROM; no normal gait (favors L hip) Thoracic/Lumbar Spine: thor and lumb spine abnorm to inspection (L post rotation of pelvis), pain with thoraco-lumbar ROM with forward flexion and with lateral flexion to the left, paraspinal tenderness on the left greater than right (QL, Piriformis), thoraco-lumbar ROM limited with forward flexion and with lateral flexion to the left, thoraco-lumbar spasm on the left greater than right (L QL, L piriformis) Sacroiliac joints: on the left Office Procedures Chiropractic Treatments Procedures Manipulation: 3-4 regions (T10, L3, L5, LIL) Assessment AND Plan 1. Segmental and somatic dysfunction of thoracic region M99.02 Orders Orders: 2. Segmental and somatic dysfunction of lumbar region M99.03 Orders Orders: 3. Segmental and somatic dysfunction of pelvic region M99.05 Orders Orders: Plan Detail Goals Decrease pain and inflammation Barriers RA Follow Up 1 x week Coding Level of Care Code No Charge Diagnoses Segmental and somatic dysfunction of thoracic region M99.02 Segmental and somatic dysfunction of lumbar region M99.03 Segmental and somatic dysfunction of pelvic region M99.05 Additional Codes Procedures - Manipulation: 3-4 regions ([id number]) 06/13/18 0835 <Electronically signed by Valerie Kyle D.C.> Date Valerie Kyle D.C. Cosigner Signature: Date (if applicable) CC: CHIROPRACTIC REPORT Observed: 06/06/2018 Status: F Source: [facility] 10:00 AM [facility] [address] [place] [id number] OFFICE VISIT Date of Service: 06/02/18 MR#: [id number] Acct: [id number] Name: OUMOU MARTINEZ Rep #: [id number] : 1965 Provider: Valerie Kyle D.C. Age/Sex: 53/F Location: [facility] [place] Status: Signed Intake Vital Signs06/02/18 Height 5 ft 4 in 06/02/18 Weight: 211 lb 06/02/18 Body Mass Index (BMI) 36.2 Intake Visit Reasons: back pain Chief Complaint: L sided low back pain Is patient in pain?: Yes Allergies gabapentin Allergy (Mild, Verified 03/15/18 09:29) sedation hydroxychloroquine [From Plaquenil] Allergy (Verified 03/15/18 09:29) Rash THYROID MEDICATION Allergy (Uncoded 03/15/18 09:29) Rash Medications Amlodipine [Norvasc] 10 mg PO QHS 02/05/16 [History Confirmed 03/16/18] Hydrochlorothiazide 12.5 mg PO PRN PRN 01/22/17 [History Confirmed 03/16/18] Lisinopril [Zestril] 20 mg PO DAILY 01/22/17 [History Confirmed 03/16/18] Simvastatin [Zocor] 20 mg PO QHS 01/22/17 [History Confirmed 03/16/18] traMADol [Ultram] 50 mg PO BID 01/22/17 [History Confirmed 03/16/18] cyclobenzaprine 10 mg tablet 10 mg PO PRN PRN 10/12/17 [History Confirmed 03/16/18] hydrocodone 5 mg-acetaminophen 325 mg tablet 1 tab PO Q6H PRN 10/12/17 [History Confirmed 03/16/18] levothyroxine 100 mcg tablet 75 mcg PO DAILY tab 10/12/17 [History Confirmed 03/16/18] Bacillus Coagulans [Digestive Advantage] 1 ea PO TID 03/15/18 [History Confirmed 03/16/18] Black Cohosh 540 mg PO BID 03/15/18 [History Confirmed 03/16/18] Cholecalciferol (Vitamin D3) [Vitamin D3] 2,000 unit PO DAILY 03/15/18 [History Confirmed 03/16/18] [facility] Medical History Cervical cancer (Acute) GERD (gastroesophageal reflux disease) (Acute) Graves disease (Acute) Spinal stenosis (Acute) Whiplash (Acute) Fibromyalgia (Chronic) IBS (irritable bowel syndrome) (Chronic) Surgical History History of foot surgery (Acute) History of tonsillectomy (Acute) H/O LEEP (Inactive) H/O dilation and curettage (Inactive) History of placement of ear tubes (Inactive) History of tonsillectomy (Inactive) Status post right foot surgery (Inactive) bladder lift (Inactive) rectal reconstruction (Inactive) Family History Mother Diabetes Hypertension Grandmother Rheumatoid arthritis Heart disease Father Hypertension Grandfather Heart disease Social History Smoking Status: Former smoker alcohol intake: never substance use type: does not use what type of physical activity do you participate in: weight training, walking, swimming frequency: 3-4 times per week HPI back pain: Chief Complaint: Low back pain Visit Number: 8 Details: OUMOU MARTINEZ is a 53 year old F who presents with low back pain and stiffness. Today Oumou rates her pain a 4/10 and describes it as a stiff, tight and severe pain. Walking, bending, and lifting cause a tight sharp pain that bands across the low back, although she is constantly stiff. Oumou denies any numbness, tingling, or radiculopathy. Location: low back Duration: frequent Aggravating or associated factors: walking, bending, lifting Relieving factors: chiro Pain Quality: aching, dull, cramping Exam Musc General: Yes normal posture, joint tenderness (L3-L5, L SI) and decreased ROM; no normal gait (favors L hip) Thoracic/Lumbar Spine: thor and lumb spine abnorm to inspection (L post rotation of pelvis), pain with thoraco-lumbar ROM with forward flexion and with lateral flexion to the left, paraspinal tenderness on the left greater than right (QL, Piriformis), thoraco-lumbar ROM limited with forward flexion and with lateral flexion to the left, thoraco-lumbar spasm on the left greater than right (L QL, L piriformis) Sacroiliac joints: on the left Office Procedures Chiropractic Treatments Procedures Manipulation: 3-4 regions (T10, L3, L5, LIL) Assessment AND Plan 1. Segmental and somatic dysfunction of thoracic region M99.02 Orders Orders: 2. Segmental and somatic dysfunction of pelvic region M99.05 Orders Orders: 3. Segmental and somatic dysfunction of lumbar region M99.03 Orders Orders: Plan Detail Goals Decrease pain and inflammation Barriers RA Follow Up 1 x week Coding Level of Care Code No Charge Diagnoses Segmental and somatic dysfunction of thoracic region M99.02 Segmental and somatic dysfunction of pelvic region M99.05 Segmental and somatic dysfunction of lumbar region M99.03 Additional Codes Procedures - Manipulation: 3-4 regions (49168) 06/06/18 1000 <Electronically signed by Valerie Kyle D.C.> Date Valerie Kyle D.C. Cosign Signature: Date (if applicable) CC: CHIROPRACTIC REPORT Observed: 06/02/2018 Status: F Source: [place] 9:07 AM [facility] [address] [place] [address] OFFICE VISIT Date of Service: 05/31/18 MR#: [id number] Acct: [id number] Name: OUMOU MARTINEZ Rep #: [id number] : 1965 Provider: Valerie Kyle D.C. Age/Sex: 53/F Location[place] [facility] [place] Status: Signed Intake Vital Signs05/31/18 Height 5 ft 4 in 05/31/18 Weight: 211 lb 05/31/18 Body Mass Index (BMI) 36.2 Intake Visit Reasons: lower back pain Chief Complaint: L sided low back pain Is patient in pain?: Yes Allergies gabapentin Allergy (Mild, Verified 03/15/18 09:29) sedation hydroxychloroquine [From Plaquenil] Allergy (Verified 03/15/18 09:29) Rash THYROID MEDICATION Allergy (Uncoded 03/15/18 09:29) Rash Medications Amlodipine [Norvasc] 10 mg PO QHS 02/05/16 [History Confirmed 03/16/18] Hydrochlorothiazide 12.5 mg PO PRN PRN 01/22/17 [History Confirmed 03/16/18] Lisinopril [Zestril] 20 mg PO DAILY 01/22/17 [History Confirmed 03/16/18] Simvastatin [Zocor] 20 mg PO QHS 01/22/17 [History Confirmed 03/16/18] traMADol [Ultram] 50 mg PO BID 01/22/17 [History Confirmed 03/16/18] cyclobenzaprine 10 mg tablet 10 mg PO PRN PRN 10/12/17 [History Confirmed 03/16/18] hydrocodone 5 mg-acetaminophen 325 mg tablet 1 tab PO Q6H PRN 10/12/17 [History Confirmed 03/16/18] levothyroxine 100 mcg tablet 75 mcg PO DAILY tab 10/12/17 [History Confirmed 03/16/18] Bacillus Coagulans [Digestive Advantage] 1 ea PO TID 03/15/18 [History Confirmed 03/16/18] Black Cohosh 540 mg PO BID 03/15/18 [History Confirmed 03/16/18] Cholecalciferol (Vitamin D3) [Vitamin D3] 2,000 unit PO DAILY 03/15/18 [History Confirmed 03/16/18] [facility] Medical History Cervical cancer (Acute) GERD (gastroesophageal reflux disease) (Acute) Graves disease (Acute) Spinal stenosis (Acute) Whiplash (Acute) Fibromyalgia (Chronic) IBS (irritable bowel syndrome) (Chronic) Surgical History History of foot surgery (Acute) History of tonsillectomy (Acute) H/O LEEP (Inactive) H/O dilation and curettage (Inactive) History of placement of ear tubes (Inactive) History of tonsillectomy (Inactive) Status post right foot surgery (Inactive) bladder lift (Inactive) rectal reconstruction (Inactive) Family History Mother Diabetes Hypertension Grandmother Rheumatoid arthritis Heart disease Father Hypertension Grandfather Heart disease Social History Smoking Status: Former smoker alcohol intake: never substance use type: does not use what type of physical activity do you participate in: weight training, walking, swimming frequency: 3-4 times per week HPI lower back pain: Chief Complaint: Low back pain Visit Number: 10 Details: OUMOU MARTINEZ is a 53 year old F who presents with increased low back pain. She states that over the weekend her pain did slightly increase, described as a tight catching sensation that increases when standing from sitting. Today Oumou rates her pain a 4/10 and describes it as a tight ache that bands across the low back, when standing the pain feels like a catching that causes her to be hunched over. Oumou denies any numbness, tingling, or radiculopathy. Location: low back Duration: intermittent Aggravating or associated factors: standing Relieving factors: sitting and chiro Pain Quality: aching, dull, cramping Current Sensation: catching Exam Musc General: Yes normal posture, joint tenderness (L3-L5, L SI) and decreased ROM; no normal gait (favors L hip) Thoracic/Lumbar Spine: thor and lumb spine abnorm to inspection (L post rotation of pelvis), pain with thoraco-lumbar ROM with forward flexion and with lateral flexion to the left, paraspinal tenderness (slightly worsened) on the left greater than right (QL, Piriformis), thoraco-lumbar ROM limited with forward flexion and with lateral flexion to the left, thoraco-lumbar spasm on the left greater than right (L QL, L piriformis) Sacroiliac joints: on the left Office Procedures Chiropractic Treatments Procedures Manipulation: 3-4 regions (T10,L3,L5, LIL) Assessment AND Plan 1. Segmental and somatic dysfunction of thoracic region M99.02 Orders Orders: 2. Segmental and somatic dysfunction of lumbar region M99.03 Orders Orders: 3. Segmental and somatic dysfunction of pelvic region M99.05 Orders Orders: Plan Detail Goals Decrease pain and inflammation Barriers RA Follow Up 2 x week Coding Level of Care Code No Charge Diagnoses Segmental and somatic dysfunction of thoracic region M99.02 Segmental and somatic dysfunction of lumbar region M99.03 Segmental and somatic dysfunction of pelvic region M99.05 Additional Codes Procedures - Manipulation: 3-4 regions (56298) 06/02/18 0907 <Electronically signed by Valerie Kyle D.C.> Date Valerie Kyle D.C. Cosigner Signature: Date (if applicable) CC: CBC W/DIFF, AUTOMATED Collected: 06/01/2018 Status: F Source: [facility] 10:17 AM [facility] [place] REPOSITORY TYPE CODE TESTS RESULT OUT OF RANGE REFERENCE UNITS LAB L100.1000 4.4-11.0 K/mm3 Normal WBC 8.0 LAB L100.1200 4.2-5.4 M/mm3 Normal RBC 4.40 LAB L100.1300 12.0-15.0 g/dl Normal HGB 12.9 LAB L100.1400 37-47 % Normal HCT 38.8 LAB L100.1500 81-99 fL Normal MCV 88.2 LAB L100.1600 27.0-32.0 pg Normal MCH 29.3 LAB L100.1700 32-36 g/gl Normal MCHC 33.2 LAB L100.1810 11.6-14.6 % Normal RDW CV 13.1 LAB L100.1820 35.1-43.9 fl Normal RDW SD 41.5 LAB L100.1900 150-450 K/mm3 Normal PLT 294 LAB L100.2000 6.2-12.0 fl Normal MPV 10.8 LAB L100.2100 47-70 % Normal NEUT% 67.3 LAB L100.2200 19-41 % Normal LY% 23.6 LAB L100.2300 0-10 % Normal MONO% 6.4 LAB L100.2400 0-5 % Normal EO% 1.8 LAB L100.2500 0-1 % Normal BASO% 0.6 LAB L100.2550 0.0-0.9 % Normal IM GRAN % 0.300 Result Comment: IG% - Immature Granulocytes (promyelocytes, myelocytes and metamyelocytes) > 1% indicates that a LEFT SHIFT is Present. LAB L100.2620 2.0-7.7 X10 3/uL Normal Absolute Neut 5.4 LAB L100.2720 0.83-4.51 X10 3/ul Normal Absolute Lymph 1.89 Performed By: #### L100.0100 #### [facility] [address]. [place], [place], [address] VITAMIN D,25 HYDROXY Collected: 06/01/2018 Status: F Source: [place] 10:17 AM [facility] REPOSITORY TYPE CODE TESTS RESULT OUT OF RANGE REFERENCE UNITS LAB L506.1000 29.95-100.01 ng/mL Normal Vitamin D 46.2 25-OH Result Comment: Vitamin D 25(OH) Status Range Deficiency <20 ng/mL (50nmol/L) Insuffciency 20 - 30 ng/mL (50 - 75 nmol/L) Sufficiency 30 - 100 ng/mL (75 - 250 nmol/L) Toxicity >100 ng/mL (>250 nmol/L) Performed By: #### L506.1000 #### [facility] [address]. [place], [place], [address] COMPREHENSIVE METABOLIC Collected: 06/01/2018 Status: F Source: [facility] 10:17 AM [facility] REPOSITORY TYPE CODE TESTS RESULT OUT OF RANGE REFERENCE UNITS LAB L501.0100 74-106 mg/dL Normal GLU 104 Result Comment: Fasting Glucose result from 100 to 125 mg/dL suggests IMPAIRED HOMEOSTASIS per A.D.A. criteria. Please note revised GLUCOSE reference range effective 2017. LAB L501.1000 7-18 mg/dL Normal BUN 15 LAB L501.1100 0.55-1.02 mg/dL Normal CREAT,SERUM 0.87 Result Comment: The validity of the calculated GFR AND GFRAA in patients over 70 years has not been determined. Clinical correlation is essential. LAB L501.1110 >60 mL/min Normal EST GFR 72 Result Comment: Non- GFR Calc LAB L501.1115 >60 mL/min Normal EST GFR - AA 87 Result Comment: GFR Calc LAB L501.1300 10-20 RATIO Normal BUN/CRE 17.3 LAB L501.1500 6.4-8.2 g/dL T Normal PROT 7.8 LAB L501.1800 3.2-5.0 g/dL Normal ALB 3.8 LAB L501.1950 2.2-4.2 g/dL Normal GLOB 4.0 LAB L501.2000 0.9-2.4 RATIO Normal A/G 1.0 LAB L501.2200 8.5-10.1 mg/dL CA Normal 9.3 LAB L501.4100 15-37 U/L Normal AST 21 LAB L501.4305 45-117 U/L High ALK P 121 LAB L501.4405 13-56 U/L Normal ALT 30 LAB L501.4600 0.20-1.00 mg/dL T Normal BILI 0.50 LAB L501.5300 136-145 mmol/L NA Normal 139 LAB L501.5600 3.5-5.1 mmol/L K Normal 3.8 LAB L501.5900 98-107 mmol/L CL Normal 103 LAB L501.6100 21.0-32.0 mmol/L Normal CO2 25.0 LAB L501.6200 5-15 Normal GAP 11 Performed By: #### L500.4050, L501.9520, L506.0400 #### [facility] [address] [place] [address], [id number] THYROID STIM HORMONE Collected: 06/01/2018 Status: F Source: [facility] (TSH) 10:17 AM [facility] [facility] REPOSITORY TYPE CODE TESTS RESULT OUT OF RANGE REFERENCE UNITS LAB L501.9520 0.358-3.74 uIU/mL Normal TSH 1.28 Performed By: #### L500.4050, L501.9520, L506.0400 #### [facility] [address] [place], [place], [address] T4 FREE DIRECT Collected: 06/01/2018 Status: F Source: [place] 10:17 AM [facility] [facility] REPOSITORY TYPE CODE TESTS RESULT OUT OF RANGE REFERENCE UNITS LAB L506.0400 0.76-1.46 ng/dL Normal T4 FREE 1.30 DIRECT Performed By: #### L500.4050, L501.9520, L506.0400 #### [facility] [address] [place], [address] CHIROPRACTIC REPORT Observed: 05/31/2018 Status: F Source: [place] 4:02 PM [facility] REPOSITORY [facility] [address] [place] [address] OFFICE VISIT Date of Service: 05/19/18 MR#: [id number] Acct: [id number] Name: OUMOU MARTINEZ Rep #: [id number] : 1965 Provider: Valerie Kyle D.C. Age/Sex: 53/F Location[place] [facility] [place] Status: Signed Intake Vital Signs05/19/18 Height 5 ft 4 in 05/19/18 Weight: 215 lb 05/19/18 Body Mass Index (BMI) 36.8 Intake Visit Reasons: low back pain Chief Complaint: L sided low back pain Is patient in pain?: Yes Allergies gabapentin Allergy (Mild, Verified 03/15/18 09:29) sedation hydroxychloroquine [From Plaquenil] Allergy (Verified 03/15/18 09:29) Rash THYROID MEDICATION Allergy (Uncoded 03/15/18 09:29) Rash Medications Amlodipine [Norvasc] 10 mg PO QHS 02/05/16 [History Confirmed 03/16/18] Hydrochlorothiazide 12.5 mg PO PRN PRN 01/22/17 [History Confirmed 03/16/18] Lisinopril [Zestril] 20 mg PO DAILY 01/22/17 [History Confirmed 03/16/18] Simvastatin [Zocor] 20 mg PO QHS 01/22/17 [History Confirmed 03/16/18] traMADol [Ultram] 50 mg PO BID 01/22/17 [History Confirmed 03/16/18] cyclobenzaprine 10 mg tablet 10 mg PO PRN PRN 10/12/17 [History Confirmed 03/16/18] hydrocodone 5 mg-acetaminophen 325 mg tablet 1 tab PO Q6H PRN 10/12/17 [History Confirmed 03/16/18] levothyroxine 100 mcg tablet 75 mcg PO DAILY tab 10/12/17 [History Confirmed 03/16/18] Bacillus Coagulans [Digestive Advantage] 1 ea PO TID 03/15/18 [History Confirmed 03/16/18] Black Cohosh 540 mg PO BID 03/15/18 [History Confirmed 03/16/18] Cholecalciferol (Vitamin D3) [Vitamin D3] 2,000 unit PO DAILY 03/15/18 [History Confirmed 03/16/18] [facility] Medical History Cervical cancer (Acute) GERD (gastroesophageal reflux disease) (Acute) Graves disease (Acute) Spinal stenosis (Acute) Whiplash (Acute) Fibromyalgia (Chronic) IBS (irritable bowel syndrome) (Chronic) Surgical History History of foot surgery (Acute) History of tonsillectomy (Acute) H/O LEEP (Inactive) H/O dilation and curettage (Inactive) History of placement of ear tubes (Inactive) History of tonsillectomy (Inactive) Status post right foot surgery (Inactive) bladder lift (Inactive) rectal reconstruction (Inactive) Family History Mother Diabetes Hypertension Grandmother Rheumatoid arthritis Heart disease Father Hypertension Grandfather Heart disease Social History Smoking Status: Former smoker alcohol intake: never substance use type: does not use what type of physical activity do you participate in: weight training, walking, swimming frequency: 3-4 times per week HPI low back pain: Chief Complaint: low back pain Visit Number: 9 Details: OUMOU MARTINEZ is a 53 year old F who presents with decreased low back pain. She states after her last treatment she did notice a decrease in the catching sensation when bending. Today Oumou rates her pain a 3/10 and describes it as a tight ache that bands across the low back, bending and prolonged standing causes increased low back pain. Oumou denies any numbness, tingling, or radiculopathy. Location: low back Duration: intermittent Aggravating or associated factors: bending and prolonged standing Relieving factors: chiro Pain Quality: aching, dull, sharp Current Sensation: catching Exam Musc General: Yes normal posture, joint tenderness (L3-L5, L SI) and decreased ROM; no normal gait (favors L hip) Thoracic/Lumbar Spine: thor and lumb spine abnorm to inspection (L post rotation of pelvis), pain with thoraco-lumbar ROM with forward flexion and with lateral flexion to the left, paraspinal tenderness (slightly improved) on the left greater than right (QL, Piriformis), thoraco-lumbar ROM limited with forward flexion and with lateral flexion to the left, thoraco-lumbar spasm on the left greater than right (L QL, L piriformis) Sacroiliac joints: on the left Office Procedures Chiropractic Treatments Procedures Manipulation: 3-4 regions (T10, L3,L5, LIL) Assessment AND Plan 1. Segmental and somatic dysfunction of thoracic region M99.02 Orders Orders: 2. Segmental and somatic dysfunction of lumbar region M99.03 Orders Orders: 3. Segmental and somatic dysfunction of pelvic region M99.05 Orders Orders: Plan Detail Goals Decrease pain and inflammation Barriers RA Follow Up 1 x week Coding Level of Care Code No Charge Diagnoses Segmental and somatic dysfunction of thoracic region M99.02 Segmental and somatic dysfunction of lumbar region M99.03 Segmental and somatic dysfunction of pelvic region M99.05 Additional Codes Procedures - Manipulation: 3-4 regions (31653) 05/31/18 1602 <Electronically signed by Valerie Kyle D.C.> Date Valerie Kyle D.C. Cosigner Signature: Date (if applicable) CC: CHIROPRACTIC REPORT Observed: 05/24/2018 Status: F Source: [facility] 12:58 PM [facility] [address] [place] [id number] OFFICE VISIT Date of Service: 05/17/18 MR#: [id number] Acct: [id number] Name: OUMOU MARTINEZ Rep #: [id number] : 1965 Provider: Valerie Kyle D.C. Age/Sex: 53/F Location: [facility] [place] Status: Signed Intake Vital Signs05/18/18 Height 5 ft 4 in 05/18/18 Weight: 215 lb 05/18/18 Body Mass Index (BMI) 36.8 05/17/18 Height 5 ft 4 in 05/17/18 Weight: 215 lb 05/17/18 Body Mass Index (BMI) 36.8 Intake Visit Reasons: low back pain Chief Complaint: L sided low back pain Is patient in pain?: Yes Allergies gabapentin Allergy (Mild, Verified 03/15/18 09:29) sedation hydroxychloroquine [From Plaquenil] Allergy (Verified 03/15/18 09:29) Rash THYROID MEDICATION Allergy (Uncoded 03/15/18 09:29) Rash Medications Amlodipine [Norvasc] 10 mg PO QHS 02/05/16 [History Confirmed 03/16/18] Hydrochlorothiazide 12.5 mg PO PRN PRN 01/22/17 [History Confirmed 03/16/18] Lisinopril [Zestril] 20 mg PO DAILY 01/22/17 [History Confirmed 03/16/18] Simvastatin [Zocor] 20 mg PO QHS 01/22/17 [History Confirmed 03/16/18] traMADol [Ultram] 50 mg PO BID 01/22/17 [History Confirmed 03/16/18] cyclobenzaprine 10 mg tablet 10 mg PO PRN PRN 10/12/17 [History Confirmed 03/16/18] hydrocodone 5 mg-acetaminophen 325 mg tablet 1 tab PO Q6H PRN 10/12/17 [History Confirmed 03/16/18] levothyroxine 100 mcg tablet 75 mcg PO DAILY tab 10/12/17 [History Confirmed 03/16/18] Bacillus Coagulans [Digestive Advantage] 1 ea PO TID 03/15/18 [History Confirmed 03/16/18] Black Cohosh 540 mg PO BID 03/15/18 [History Confirmed 03/16/18] Cholecalciferol (Vitamin D3) [Vitamin D3] 2,000 unit PO DAILY 03/15/18 [History Confirmed 03/16/18] PF[facility] Medical History Cervical cancer (Acute) GERD (gastroesophageal reflux disease) (Acute) Graves disease (Acute) Spinal stenosis (Acute) Whiplash (Acute) Fibromyalgia (Chronic) IBS (irritable bowel syndrome) (Chronic) Surgical History History of foot surgery (Acute) History of tonsillectomy (Acute) H/O LEEP (Inactive) H/O dilation and curettage (Inactive) History of placement of ear tubes (Inactive) History of tonsillectomy (Inactive) Status post right foot surgery (Inactive) bladder lift (Inactive) rectal reconstruction (Inactive) Family History Mother Diabetes Hypertension Grandmother Rheumatoid arthritis Heart disease Father Hypertension Grandfather Heart disease Social History Smoking Status: Former smoker alcohol intake: never substance use type: does not use what type of physical activity do you participate in: weight training, walking, swimming frequency: 3-4 times per week HPI low back pain: Chief Complaint: low back apain Visit Number: 9 Details: OUMOU MARTINEZ is a 53 year old F who presents with low back pain. She states over all the sharp pain has subsided, leaving her with a catching sensation when bending down. Today Oumou rates her pain a 3/10 and describes it as a dull ache that bands across the low back. Bending, lifting, and rotation still cause the ache to increase, although she denies any numbness, tingling, or radiculopathy. Location: low back Duration: intermittent Aggravating or associated factors: bending and twisting Relieving factors: chiro Pain Quality: aching, dull, cramping Exam Musc General: Yes normal posture, joint tenderness (T10, L3,L5, LIL) and decreased ROM; no normal gait (favors L hip) Thoracic/Lumbar Spine: thor and lumb spine abnorm to inspection (L post rotation of pelvis), pain with thoraco-lumbar ROM with forward flexion and with lateral flexion to the left, paraspinal tenderness (slightly improved) on the left greater than right (QL, Piriformis), thoraco-lumbar ROM limited with forward flexion and with lateral flexion to the left, thoraco-lumbar spasm on the left greater than right (L QL, L piriformis) Sacroiliac joints: on the left Office Procedures Chiropractic Treatments Procedures Manipulation: 3-4 regions (T10, L3,L5, LIL) Assessment AND Plan 1. Segmental and somatic dysfunction of thoracic region M99.02 Orders Orders: 2. Segmental and somatic dysfunction of lumbar region M99.03 Orders Orders: 3. Segmental and somatic dysfunction of pelvic region M99.05 Orders Orders: Plan Detail Goals Decrease pain and inflammation Barriers RA Follow Up PRN Coding Level of Care Code No Charge Diagnoses Segmental and somatic dysfunction of thoracic region M99.02 Segmental and somatic dysfunction of lumbar region M99.03 Segmental and somatic dysfunction of pelvic region M99.05 Additional Codes Procedures - Manipulation: 3-4 regions (53228) 05/24/18 1258 <Electronically signed by Valerie Kyle D.C.> Date Valerie Kyle D.C. Cosigner Signature: Date (if applicable) CC: CHIROPRACTIC REPORT Observed: 05/16/2018 Status: F Source: [place] 9:00 AM [facility] [address] [place] [address] OFFICE VISIT Date of Service: 05/10/18 MR#: [id number] Acct: [id number] Name: OUMOU MARTINEZ Rep #: [id number] : 1965 Provider: Valerie Kyle D.C. Age/Sex: 53/F Location: [facility] [place] Status: Signed Intake Vital Signs05/10/18 Height 5 ft 4 in 05/10/18 Weight: 215 lb 05/10/18 Body Mass Index (BMI) 36.8 Intake Visit Reasons: low back pain Chief Complaint: L sided low back pain Allergies gabapentin Allergy (Mild, Verified 03/15/18 09:29) sedation hydroxychloroquine [From Plaquenil] Allergy (Verified 03/15/18 09:29) Rash THYROID MEDICATION Allergy (Uncoded 03/15/18 09:29) Rash Medications Amlodipine [Norvasc] 10 mg PO QHS 02/05/16 [History Confirmed 03/16/18] Hydrochlorothiazide 12.5 mg PO PRN PRN 01/22/17 [History Confirmed 03/16/18] Lisinopril [Zestril] 20 mg PO DAILY 01/22/17 [History Confirmed 03/16/18] Simvastatin [Zocor] 20 mg PO QHS 01/22/17 [History Confirmed 03/16/18] traMADol [Ultram] 50 mg PO BID 01/22/17 [History Confirmed 03/16/18] cyclobenzaprine 10 mg tablet 10 mg PO PRN PRN 10/12/17 [History Confirmed 03/16/18] hydrocodone 5 mg-acetaminophen 325 mg tablet 1 tab PO Q6H PRN 10/12/17 [History Confirmed 03/16/18] levothyroxine 100 mcg tablet 75 mcg PO DAILY tab 10/12/17 [History Confirmed 03/16/18] Bacillus Coagulans [Digestive Advantage] 1 ea PO TID 03/15/18 [History Confirmed 03/16/18] Black Cohosh 540 mg PO BID 03/15/18 [History Confirmed 03/16/18] Cholecalciferol (Vitamin D3) [Vitamin D3] 2,000 unit PO DAILY 03/15/18 [History Confirmed 03/16/18] [facility] Medical History Cervical cancer (Acute) GERD (gastroesophageal reflux disease) (Acute) Graves disease (Acute) Spinal stenosis (Acute) Whiplash (Acute) Fibromyalgia (Chronic) IBS (irritable bowel syndrome) (Chronic) Surgical History History of foot surgery (Acute) History of tonsillectomy (Acute) H/O LEEP (Inactive) H/O dilation and curettage (Inactive) History of placement of ear tubes (Inactive) History of tonsillectomy (Inactive) Status post right foot surgery (Inactive) bladder lift (Inactive) rectal reconstruction (Inactive) Family History Mother Diabetes Hypertension Grandmother Rheumatoid arthritis Heart disease Father Hypertension Grandfather Heart disease Social History Smoking Status: Former smoker alcohol intake: never substance use type: does not use what type of physical activity do you participate in: weight training, walking, swimming frequency: 3-4 times per week HPI low back pain: Chief Complaint: Low back pain Visit Number: 7 Details: OUMOU MARTINEZ is a 53 year old F who presents with low back pain. She states that overall her pain is decreased, although after bending, or lifting she is still noticing a popping or clicking sensation. Today Oumou rates her pain a 3/10 and describes it as a dull ache that bands across the low back. She denies any numbness, tingling, or radiculopathy. Location: low back Duration: intermittent Aggravating or associated factors: prolonged walking or lifting Relieving factors: chiro Pain Quality: aching, dull Current Sensation: locking/clicking, snapping/popping Exam Musc General: Yes normal posture, joint tenderness (L3-L5, L SI) and decreased ROM; no normal gait (favors L hip) Thoracic/Lumbar Spine: thor and lumb spine abnorm to inspection (L post rotation of pelvis), pain with thoraco-lumbar ROM with forward flexion and with lateral flexion to the left, paraspinal tenderness (slightly improved) on the left greater than right (QL, Piriformis), thoraco-lumbar ROM limited with forward flexion and with lateral flexion to the left, thoraco-lumbar spasm on the left greater than right (L QL, L piriformis) Sacroiliac joints: on the left Office Procedures Chiropractic Treatments Procedures Manipulation: 3-4 regions (T10, L3,L5, LIL) Assessment AND Plan 1. Segmental and somatic dysfunction of thoracic region M99.02 Orders Orders: 2. Segmental and somatic dysfunction of pelvic region M99.05 Orders Orders: 3. Segmental and somatic dysfunction of lumbar region M99.03 Orders Orders: Plan Detail Goals Decrease pain and inflammation Barriers RA Follow Up 1 Week Coding Level of Care Code No Charge Diagnoses Segmental and somatic dysfunction of thoracic region M99.02 Segmental and somatic dysfunction of pelvic region M99.05 Segmental and somatic dysfunction of lumbar region M99.03 Additional Codes Procedures - Manipulation: 3-4 regions (87125) 05/16/18 0900 <Electronically signed by Valerie Kyle D.C.> Date Valerie Simeon Signature: Date (if applicable) CC: CHIROPRACTIC REPORT Observed: 05/09/2018 Status: F Source: [place] [place] 12:[address] [facility] [address] [place] [id number] OFFICE VISIT Date of Service: 05/03/18 MR#: [id number] Acct: [id number] Name: OUMOU MARTINEZ Rep #: [id number] : 1965 Provider: Valerie Kyle D.C. Age/Sex: 53/F [place] [facility] [place] Status: Signed Intake Vital Signs05/03/18 Height 5 ft 4 in 05/03/18 Weight: 215 lb 05/03/18 Body Mass Index (BMI) 36.8 Intake Visit Reasons: back pain Chief Complaint: L sided low back pain Is patient in pain?: Yes Allergies gabapentin Allergy (Mild, Verified 03/15/18 09:29) sedation hydroxychloroquine [From Plaquenil] Allergy (Verified 03/15/18 09:29) Rash THYROID MEDICATION Allergy (Uncoded 03/15/18 09:29) Rash Medications Amlodipine [Norvasc] 10 mg PO QHS 02/05/16 [History Confirmed 03/16/18] Hydrochlorothiazide 12.5 mg PO PRN PRN 01/22/17 [History Confirmed 03/16/18] Lisinopril [Zestril] 20 mg PO DAILY 01/22/17 [History Confirmed 03/16/18] Simvastatin [Zocor] 20 mg PO QHS 01/22/17 [History Confirmed 03/16/18] traMADol [Ultram] 50 mg PO BID 01/22/17 [History Confirmed 03/16/18] cyclobenzaprine 10 mg tablet 10 mg PO PRN PRN 10/12/17 [History Confirmed 03/16/18] hydrocodone 5 mg-acetaminophen 325 mg tablet 1 tab PO Q6H PRN 10/12/17 [History Confirmed 03/16/18] levothyroxine 100 mcg tablet 75 mcg PO DAILY tab 10/12/17 [History Confirmed 03/16/18] Bacillus Coagulans [Digestive Advantage] 1 ea PO TID 03/15/18 [History Confirmed 03/16/18] Black Cohosh 540 mg PO BID 03/15/18 [History Confirmed 03/16/18] Cholecalciferol (Vitamin D3) [Vitamin D3] 2,000 unit PO DAILY 03/15/18 [History Confirmed 03/16/18] [facility] Medical History Cervical cancer (Acute) GERD (gastroesophageal reflux disease) (Acute) Graves disease (Acute) Spinal stenosis (Acute) Whiplash (Acute) Fibromyalgia (Chronic) IBS (irritable bowel syndrome) (Chronic) Surgical History History of foot surgery (Acute) History of tonsillectomy (Acute) H/O LEEP (Inactive) H/O dilation and curettage (Inactive) History of placement of ear tubes (Inactive) History of tonsillectomy (Inactive) Status post right foot surgery (Inactive) bladder lift (Inactive) rectal reconstruction (Inactive) Family History Mother Diabetes Hypertension Grandmother Rheumatoid arthritis Heart disease Father Hypertension Grandfather Heart disease Social History Smoking Status: Former smoker alcohol intake: never substance use type: does not use what type of physical activity do you participate in: weight training, walking, swimming frequency: 3-4 times per week HPI back pain : Chief Complaint: L sided low back pain Visit Number: 7 Details: OUMOU MARTINEZ is a 53 year old F who presents with L sided low back pain. Patient states she is having more pain than before and rates her pain at 4/10. Patient is currently taking Tramadol and states that seems to help with the pain. She has been working out and losing weight which she hopes will help decrease her discomfort. Location: L sided low back pain Duration: intermittent Aggravating or associated factors: prolonged bending Relieving factors: chiro Pain Quality: aching, dull, cramping Exam Musc General: Yes normal posture, joint tenderness (L3-L5, L SI) and decreased ROM; no normal gait (favors L hip) Thoracic/Lumbar Spine: thor and lumb spine abnorm to inspection (L post rotation of pelvis), pain with thoraco-lumbar ROM with forward flexion and with lateral flexion to the left, paraspinal tenderness on the left greater than right (QL, Piriformis), thoraco-lumbar ROM limited with forward flexion and with lateral flexion to the left, thoraco-lumbar spasm on the left greater than right (L QL, L piriformis) Sacroiliac joints: on the left Office Procedures Chiropractic Treatments Procedures Manipulation: 3-4 regions (T11, L3, L5, LIL) Assessment AND Plan 1. Segmental and somatic dysfunction of thoracic region M99.02 Orders Orders: 2. Segmental and somatic dysfunction of lumbar region M99.03 Orders Orders: 3. Segmental and somatic dysfunction of pelvic region M99.05 Orders Orders: Plan Detail Additional Comments Discussed cardio machines and workout recommendations. Goals Decrease pain and inflammation Barriers RA Follow Up 1 x week Coding Level of Care Code No Charge Diagnoses Segmental and somatic dysfunction of thoracic region M99.02 Segmental and somatic dysfunction of lumbar region M99.03 Segmental and somatic dysfunction of pelvic region M99.05 Additional Codes Procedures - Manipulation: 3-4 regions (13170) 05/09/18 1229 <Electronically signed by Valerie Kyle D.C.> Date Valerie Kyle D.C. Cosigner Signature: Date (if applicable) CC: CHIROPRACTIC REPORT Observed: 05/09/2018 Status: F Source: [facility] 9:25 AM [facility] [address] [place] [id number] OFFICE VISIT Date of Service: 04/28/18 MR#: [id number] Acct: [id number] Name: OUMOU MARTINEZ Rep #: [id number] : 1965 Provider: Valerie Kyle D.C. Age/Sex: 53/F Location: [facility] [place] Status: Signed Intake Vital Signs04/28/18 Height 5 ft 4 in 04/28/18 Weight: 222 lb 04/28/18 Body Mass Index (BMI) 38.0 Intake Visit Reasons: back pain Chief Complaint: L sided low back pain Allergies gabapentin Allergy (Mild, Verified 03/15/18 09:29) sedation hydroxychloroquine [From Plaquenil] Allergy (Verified 03/15/18 09:29) Rash THYROID MEDICATION Allergy (Uncoded 03/15/18 09:29) Rash Medications Amlodipine [Norvasc] 10 mg PO QHS 02/05/16 [History Confirmed 03/16/18] Hydrochlorothiazide 12.5 mg PO PRN PRN 01/22/17 [History Confirmed 03/16/18] Lisinopril [Zestril] 20 mg PO DAILY 01/22/17 [History Confirmed 03/16/18] Simvastatin [Zocor] 20 mg PO QHS 01/22/17 [History Confirmed 03/16/18] traMADol [Ultram] 50 mg PO BID 01/22/17 [History Confirmed 03/16/18] cyclobenzaprine 10 mg tablet 10 mg PO PRN PRN 10/12/17 [History Confirmed 03/16/18] hydrocodone 5 mg-acetaminophen 325 mg tablet 1 tab PO Q6H PRN 10/12/17 [History Confirmed 03/16/18] levothyroxine 100 mcg tablet 75 mcg PO DAILY tab 10/12/17 [History Confirmed 03/16/18] Bacillus Coagulans [Digestive Advantage] 1 ea PO TID 03/15/18 [History Confirmed 03/16/18] Black Cohosh 540 mg PO BID 03/15/18 [History Confirmed 03/16/18] Cholecalciferol (Vitamin D3) [Vitamin D3] 2,000 unit PO DAILY 03/15/18 [History Confirmed 03/16/18] PF[facility] Medical History Cervical cancer (Acute) GERD (gastroesophageal reflux disease) (Acute) Graves disease (Acute) Spinal stenosis (Acute) Whiplash (Acute) Fibromyalgia (Chronic) IBS (irritable bowel syndrome) (Chronic) Surgical History History of foot surgery (Acute) History of tonsillectomy (Acute) H/O LEEP (Inactive) H/O dilation and curettage (Inactive) History of placement of ear tubes (Inactive) History of tonsillectomy (Inactive) Status post right foot surgery (Inactive) bladder lift (Inactive) rectal reconstruction (Inactive) Family History Mother Diabetes Hypertension Grandmother Rheumatoid arthritis Heart disease Father Hypertension Grandfather Heart disease Social History Smoking Status: Former smoker alcohol intake: never substance use type: does not use what type of physical activity do you participate in: weight training, walking, swimming frequency: 3-4 times per week HPI back pain : Chief Complaint: low back pain Visit Number: 5 Details: OUMOU MARTINEZ is a 53 year old F who presents with low back pain. She states that while walking she is noticing a catching sensation in the L lower back. Today Oumou rates her pain a 3/10 and describes it as a tight ache that bands across the back and becomes sharp with walking and complains of a catching sensation. Oumou denies any numbness, tingling, or radiculopathy. Location: low back pain Duration: intermittent Aggravating or associated factors: walking Pain Quality: aching, dull Current Sensation: catching Exam Musc General: Yes normal posture, joint tenderness (L3-L5, L SI) and decreased ROM; no normal gait (favors L hip) Thoracic/Lumbar Spine: thor and lumb spine abnorm to inspection (L post rotation of pelvis), pain with thoraco-lumbar ROM with forward flexion and with lateral flexion to the left, paraspinal tenderness on the left greater than right (QL, Piriformis), thoraco-lumbar ROM limited with forward flexion and with lateral flexion to the left, thoraco-lumbar spasm on the left greater than right (L QL, L piriformis) Sacroiliac joints: on the left Office Procedures Chiropractic Treatments Procedures Manipulation: 3-4 regions (T10, L3, L5, LIL) Assessment AND Plan 1. Segmental and somatic dysfunction of thoracic region M99.02 Orders Orders: 2. Segmental and somatic dysfunction of lumbar region M99.03 Orders Orders: 3. Segmental and somatic dysfunction of pelvic region M99.05 Orders Orders: Plan Detail Goals Decrease pain and inflammation Barriers RA Follow Up 1 x week Coding Level of Care Code No Charge Diagnoses Segmental and somatic dysfunction of thoracic region M99.02 Segmental and somatic dysfunction of lumbar region M99.03 Segmental and somatic dysfunction of pelvic region M99.05 Additional Codes Procedures - Manipulation: 3-4 regions (58529) 05/09/18924 <Electronically signed by Valerie Kyle D.C.> Date Valerie Kyle D.C. Cosigner Signature: Date (if applicable) CC: CHIROPRACTIC REPORT Observed: 04/20/2018 Status: F Source: [place] [place] 2:23 PM [facility] [address] [place] [address] OFFICE VISIT Date of Service: 04/14/18 MR#: [id number] Acct: [id number] Name: OUMOU MARTINEZ Rep #: [id number] : 1965 Provider: Valerie Kyle D.C. Age/Sex: 53/F Location: [facility] [place] Status: Signed Intake Vital Signs04/18/18 Height 5 ft 4 in 04/18/18 Weight: 222 lb 04/18/18 Body Mass Index (BMI) 38.0 Intake Visit Reasons: back pain Chief Complaint: L sided low back pain Is patient in pain?: Yes Allergies gabapentin Allergy (Mild, Verified 03/15/18 09:29) sedation hydroxychloroquine [From Plaquenil] Allergy (Verified 03/15/18 09:29) Rash THYROID MEDICATION Allergy (Uncoded 03/15/18 09:29) Rash Medications Amlodipine [Norvasc] 10 mg PO QHS 02/05/16 [History Confirmed 03/16/18] Hydrochlorothiazide 12.5 mg PO PRN PRN 01/22/17 [History Confirmed 03/16/18] Lisinopril [Zestril] 20 mg PO DAILY 01/22/17 [History Confirmed 03/16/18] Simvastatin [Zocor] 20 mg PO QHS 01/22/17 [History Confirmed 03/16/18] traMADol [Ultram] 50 mg PO BID 01/22/17 [History Confirmed 03/16/18] cyclobenzaprine 10 mg tablet 10 mg PO PRN PRN 10/12/17 [History Confirmed 03/16/18] hydrocodone 5 mg-acetaminophen 325 mg tablet 1 tab PO Q6H PRN 10/12/17 [History Confirmed 03/16/18] levothyroxine 100 mcg tablet 75 mcg PO DAILY tab 10/12/17 [History Confirmed 03/16/18] Bacillus Coagulans [Digestive Advantage] 1 ea PO TID 03/15/18 [History Confirmed 03/16/18] Black Cohosh 540 mg PO BID 03/15/18 [History Confirmed 03/16/18] Cholecalciferol (Vitamin D3) [Vitamin D3] 2,000 unit PO DAILY 03/15/18 [History Confirmed 03/16/18] PFSH Medical History Cervical cancer (Acute) GERD (gastroesophageal reflux disease) (Acute) Graves disease (Acute) Spinal stenosis (Acute) Whiplash (Acute) Fibromyalgia (Chronic) IBS (irritable bowel syndrome) (Chronic) Surgical History History of foot surgery (Acute) History of tonsillectomy (Acute) H/O LEEP (Inactive) H/O dilation and curettage (Inactive) History of placement of ear tubes (Inactive) History of tonsillectomy (Inactive) Status post right foot surgery (Inactive) bladder lift (Inactive) rectal reconstruction (Inactive) Family History Mother Diabetes Hypertension Grandmother Rheumatoid arthritis Heart disease Father Hypertension Grandfather Heart disease Social History Smoking Status: Former smoker alcohol intake: never substance use type: does not use what type of physical activity do you participate in: weight training, walking, swimming frequency: 3-4 times per week HPI back pain : Chief Complaint: low back pain Visit Number: 5 Details: OUMOU MARTINEZ is a 53 year old F who presents with decreased low back pain. Oumou states that her pain is minimal to none, when bending and lifting she no longer experiences any increased pain. Today Oumou rates her pain a 2/10 and describes it as a tight ache that comes and goes. At its worst the pain can become a sharp ache if the patient is bent over for a long amount of time. The patient denies any numbness, tingling, or radiculopathy. Location: low back Duration: intermittent Aggravating or associated factors: prolonged bending Relieving factors: chiro Pain Quality: aching, dull, sharp Exam Musc General: Yes normal posture, joint tenderness (L3-L5, L SI) and decreased ROM; no normal gait (favors L hip) Thoracic/Lumbar Spine: thor and lumb spine abnorm to inspection (L post rotation of pelvis), pain with thoraco-lumbar ROM with forward flexion and with lateral flexion to the left, paraspinal tenderness on the left greater than right (QL, Piriformis), thoraco-lumbar ROM limited with forward flexion and with lateral flexion to the left, thoraco-lumbar spasm on the left greater than right (L QL, L piriformis) Sacroiliac joints: on the left Office Procedures Chiropractic Treatments Procedures Manipulation: 3-4 regions (T10, L3,L5, LIL) Assessment AND Plan 1. Segmental and somatic dysfunction of thoracic region M99.02 Orders Orders: 2. Segmental and somatic dysfunction of lumbar region M99.03 Orders Orders: 3. Segmental and somatic dysfunction of pelvic region M99.05 Orders Orders: Plan Detail Goals Decrease pain and inflammation Barriers RA Follow Up 1 x week Coding Level of Care Code No Charge Diagnoses Segmental and somatic dysfunction of thoracic region M99.02 Segmental and somatic dysfunction of lumbar region M99.03 Segmental and somatic dysfunction of pelvic region M99.05 Additional Codes Procedures - Manipulation: 3-4 regions ([id number]) 04/20/18 1428 <Electronically signed by Valerie Kyle D.C.> Date Valerie Kyle D.C. Cosigner Signature: Date (if applicable) CC: CHIROPRACTIC REPORT Observed: 04/18/2018 Status: F Source: [place] 9:25 AM [facility] [address] [place] [address] OFFICE VISIT Date of Service: 04/11/18 MR#: [id number] Acct: [id number] Name: OUMOU MARTINEZ Rep #: [id number] : 1965 Provider: Valerie Kyle D.C. Age/Sex: 53/F Location: [facility] [place] Status: Signed Intake Vital Signs04/11/18 Height 5 ft 4 in 04/11/18 Weight: 222 lb 04/11/18 Body Mass Index (BMI) 38.0 Intake Visit Reasons: back pain Chief Complaint: L sided low back pain Is patient in pain?: Yes Allergies gabapentin Allergy (Mild, Verified 03/15/18 09:29) sedation hydroxychloroquine [From Plaquenil] Allergy (Verified 03/15/18 09:29) Rash THYROID MEDICATION Allergy (Uncoded 03/15/18 09:29) Rash Medications Amlodipine [Norvasc] 10 mg PO QHS 02/05/16 [History Confirmed 03/16/18] Hydrochlorothiazide 12.5 mg PO PRN PRN 01/22/17 [History Confirmed 03/16/18] Lisinopril [Zestril] 20 mg PO DAILY 01/22/17 [History Confirmed 03/16/18] Simvastatin [Zocor] 20 mg PO QHS 01/22/17 [History Confirmed 03/16/18] traMADol [Ultram] 50 mg PO BID 01/22/17 [History Confirmed 03/16/18] cyclobenzaprine 10 mg tablet 10 mg PO PRN PRN 10/12/17 [History Confirmed 03/16/18] hydrocodone 5 mg-acetaminophen 325 mg tablet 1 tab PO Q6H PRN 10/12/17 [History Confirmed 03/16/18] levothyroxine 100 mcg tablet 75 mcg PO DAILY tab 10/12/17 [History Confirmed 03/16/18] Bacillus Coagulans [Digestive Advantage] 1 ea PO TID 03/15/18 [History Confirmed 03/16/18] Black Cohosh 540 mg PO BID 03/15/18 [History Confirmed 03/16/18] Cholecalciferol (Vitamin D3) [Vitamin D3] 2,000 unit PO DAILY 03/15/18 [History Confirmed 03/16/18] [facility] Medical History Cervical cancer (Acute) GERD (gastroesophageal reflux disease) (Acute) Graves disease (Acute) Spinal stenosis (Acute) Whiplash (Acute) Fibromyalgia (Chronic) IBS (irritable bowel syndrome) (Chronic) Surgical History History of foot surgery (Acute) History of tonsillectomy (Acute) H/O LEEP (Inactive) H/O dilation and curettage (Inactive) History of placement of ear tubes (Inactive) History of tonsillectomy (Inactive) Status post right foot surgery (Inactive) bladder lift (Inactive) rectal reconstruction (Inactive) Family History Mother Diabetes Hypertension Grandmother Rheumatoid arthritis Heart disease Father Hypertension Grandfather Heart disease Social History Smoking Status: Former smoker alcohol intake: never substance use type: does not use what type of physical activity do you participate in: weight training, walking, swimming frequency: 3-4 times per week HPI back pain : Chief Complaint: low back pain Visit Number: 3 Details: OUMOU MARTINEZ is a 53 year old F who presents with low back pain. She states that the pain has decreased, although when standing up she does experience a sharp pain in the back. Today the patient rates her pain a 2/10 and describes it as a tight ache that can become sharp. She denies any numbness, tingling, or radiculopathy. Location: low back Duration: intermittent Aggravating or associated factors: bending, lifting and twisting Relieving factors: chiro Pain Quality: aching, dull, sharp Exam Musc General: Yes normal posture, joint tenderness (L3-L5, L SI) and decreased ROM; no normal gait (favors L hip) Thoracic/Lumbar Spine: thor and lumb spine abnorm to inspection (L post rotation of pelvis), pain with thoraco-lumbar ROM with forward flexion and with lateral flexion to the left, paraspinal tenderness on the left greater than right (QL, Piriformis), thoraco-lumbar ROM limited with forward flexion and with lateral flexion to the left, thoraco-lumbar spasm on the left greater than right (L QL, L piriformis) Sacroiliac joints: on the left Office Procedures Chiropractic Treatments Procedures Manipulation: 3-4 regions (T8, T11, L3, LIL) Assessment AND Plan 1. Segmental and somatic dysfunction of thoracic region M99.02 Orders Orders: 2. Segmental and somatic dysfunction of lumbar region M99.03 Orders Orders: 3. Segmental and somatic dysfunction of pelvic region M99.05 Orders Orders: Plan Detail Goals Decrease pain and inflammation Barriers RA Follow Up 2 x week Coding Level of Care Code No Charge Diagnoses Segmental and somatic dysfunction of thoracic region M99.02 Segmental and somatic dysfunction of lumbar region M99.03 Segmental and somatic dysfunction of pelvic region M99.05 Additional Codes Procedures - Manipulation: 3-4 regions (86231) 04/18/18 0925 <Electronically signed by Valerie Kyle D.C.> Date Valerie Kyle D.C. Cosigner Signature: Date (if applicable) CC: CHIROPRACTIC REPORT Observed: 04/13/2018 Status: F Source: [place] [place] 7:56 AM [facility] [address] [place] [address] OFFICE VISIT Date of Service: 03/31/18 MR#: [id number] Acct: [id number] Name: OUMOU MARTINEZ Rep #: [id number] : 1965 Provider: Valerie Kyle D.C. Age/Sex: 53/F Location: [facility] [place] Status: Signed Intake Vital Signs03/31/18 Height 5 ft 4 in 03/31/18 Weight: 223 lb 03/31/18 Body Mass Index (BMI) 38.2 Intake Visit Reasons: back pain Chief Complaint: L sided low back pain Is patient in pain?: Yes Allergies gabapentin Allergy (Mild, Verified 03/15/18 09:29) sedation hydroxychloroquine [From Plaquenil] Allergy (Verified 03/15/18 09:29) Rash THYROID MEDICATION Allergy (Uncoded 03/15/18 09:29) Rash Medications Amlodipine [Norvasc] 10 mg PO QHS 02/05/16 [History Confirmed 03/16/18] Hydrochlorothiazide 12.5 mg PO PRN PRN 01/22/17 [History Confirmed 03/16/18] Lisinopril [Zestril] 20 mg PO DAILY 01/22/17 [History Confirmed 03/16/18] Simvastatin [Zocor] 20 mg PO QHS 01/22/17 [History Confirmed 03/16/18] traMADol [Ultram] 50 mg PO BID 01/22/17 [History Confirmed 03/16/18] cyclobenzaprine 10 mg tablet 10 mg PO PRN PRN 10/12/17 [History Confirmed 03/16/18] hydrocodone 5 mg-acetaminophen 325 mg tablet 1 tab PO Q6H PRN 10/12/17 [History Confirmed 03/16/18] levothyroxine 100 mcg tablet 75 mcg PO DAILY tab 10/12/17 [History Confirmed 03/16/18] Bacillus Coagulans [Digestive Advantage] 1 ea PO TID 03/15/18 [History Confirmed 03/16/18] Black Cohosh 540 mg PO BID 03/15/18 [History Confirmed 03/16/18] Cholecalciferol (Vitamin D3) [Vitamin D3] 2,000 unit PO DAILY 03/15/18 [History Confirmed 03/16/18] [facility] Medical History Cervical cancer (Acute) GERD (gastroesophageal reflux disease) (Acute) Graves disease (Acute) Spinal stenosis (Acute) Whiplash (Acute) Fibromyalgia (Chronic) IBS (irritable bowel syndrome) (Chronic) Surgical History History of foot surgery (Acute) History of tonsillectomy (Acute) H/O LEEP (Inactive) H/O dilation and curettage (Inactive) History of placement of ear tubes (Inactive) History of tonsillectomy (Inactive) Status post right foot surgery (Inactive) bladder lift (Inactive) rectal reconstruction (Inactive) Family History Mother Diabetes Hypertension Grandmother Rheumatoid arthritis Heart disease Father Hypertension Grandfather Heart disease Social History Smoking Status: Former smoker alcohol intake: never substance use type: does not use what type of physical activity do you participate in: weight training, walking, swimming frequency: 3-4 times per week HPI back pain : Chief Complaint: L sided low back pain Visit Number: 3 Details: OUMOU MARTINEZ is a 53 year old F who presents with L sided low back pain and persistent neck discomfort. She states that at times when walking and bending she still experiences sharp pain in her back that is very intense. She experienced some mild relief after her last treatment however her initial pain has returned. Location: LBP Duration: frequent Aggravating or associated factors: bending, lifting Relieving factors: none Pain Quality: sharp, burning Current Sensation: catching Exam Musc General: Yes normal posture, joint tenderness (T9, T10,L3- L5, L SI) and decreased ROM; no normal gait (favors L hip) Thoracic/Lumbar Spine: thor and lumb spine abnorm to inspection (L post rotation of pelvis), pain with thoraco-lumbar ROM with forward flexion and with lateral flexion to the left, paraspinal tenderness on the left greater than right (QL, Piriformis) and bilaterally in the lower thoracic, thoraco-lumbar ROM limited with forward flexion and with lateral flexion to the left, thoraco-lumbar spasm on the left greater than right (L QL, L piriformis) Sacroiliac joints: on the left Office Procedures Chiropractic Treatments Procedures Manipulation: 3-4 regions (T9, L3, L5, LIL) Assessment AND Plan Problems 1. Segmental and somatic dysfunction of thoracic region M99.02 2. Segmental and somatic dysfunction of lumbar region M99.03 3. Segmental and somatic dysfunction of pelvic region M99.05 Plan Continue with acute treatment plan. Orders Orders: Plan Detail Goals Decrease pain and inflammation Barriers RA Follow Up 2x/wk/3wks Coding Level of Care Code No Charge Diagnoses Segmental and somatic dysfunction of thoracic region M99.02 Segmental and somatic dysfunction of lumbar region M99.03 Segmental and somatic dysfunction of pelvic region M99.05 Additional Codes Procedures - Manipulation: 3-4 regions (57882) 04/13/18 0756 <Electronically signed by Valerie Kyle D.C.> Date Valerie Kyle D.C. Cosigner Signature: Date (if applicable) CC: CHIROPRACTIC REPORT Observed: 03/31/2018 Status: F Source: [place] 2:01 PM [facility] [address] [place] [address] OFFICE VISIT Date of Service: 03/29/18 MR#: [id number] Acct: [id number] Name: OUMOU MARTINEZ Rep #: [id number] : 1965 Provider: Valerie Kyle D.C. Age/Sex: 53/F Location[place] [facility] [place] Status: Signed Intake Vital Signs03/29/18 Height 5 ft 4 in 03/29/18 Weight: 223 lb 03/29/18 Body Mass Index (BMI) 38.2 Intake Visit Reasons: back pain Chief Complaint: L sided low back pain Is patient in pain?: Yes Allergies gabapentin Allergy (Mild, Verified 03/15/18 09:29) sedation hydroxychloroquine [From Plaquenil] Allergy (Verified 03/15/18 09:29) Rash THYROID MEDICATION Allergy (Uncoded 03/15/18 09:29) Rash Medications Amlodipine [Norvasc] 10 mg PO QHS 02/05/16 [History Confirmed 03/16/18] Hydrochlorothiazide 12.5 mg PO PRN PRN 01/22/17 [History Confirmed 03/16/18] Lisinopril [Zestril] 20 mg PO DAILY 01/22/17 [History Confirmed 03/16/18] Simvastatin [Zocor] 20 mg PO QHS 01/22/17 [History Confirmed 03/16/18] traMADol [Ultram] 50 mg PO BID 01/22/17 [History Confirmed 03/16/18] cyclobenzaprine 10 mg tablet 10 mg PO PRN PRN 10/12/17 [History Confirmed 03/16/18] hydrocodone 5 mg-acetaminophen 325 mg tablet 1 tab PO Q6H PRN 10/12/17 [History Confirmed 03/16/18] levothyroxine 100 mcg tablet 75 mcg PO DAILY tab 10/12/17 [History Confirmed 03/16/18] Bacillus Coagulans [Digestive Advantage] 1 ea PO TID 03/15/18 [History Confirmed 03/16/18] Black Cohosh 540 mg PO BID 03/15/18 [History Confirmed 03/16/18] Cholecalciferol (Vitamin D3) [Vitamin D3] 2,000 unit PO DAILY 03/15/18 [History Confirmed 03/16/18] [facility] Medical History Cervical cancer (Acute) GERD (gastroesophageal reflux disease) (Acute) Graves disease (Acute) Spinal stenosis (Acute) Whiplash (Acute) Fibromyalgia (Chronic) IBS (irritable bowel syndrome) (Chronic) Surgical History History of foot surgery (Acute) History of tonsillectomy (Acute) H/O LEEP (Inactive) H/O dilation and curettage (Inactive) History of placement of ear tubes (Inactive) History of tonsillectomy (Inactive) Status post right foot surgery (Inactive) bladder lift (Inactive) rectal reconstruction (Inactive) Family History Mother Diabetes Hypertension Grandmother Rheumatoid arthritis Heart disease Father Hypertension Grandfather Heart disease Social History Smoking Status: Former smoker alcohol intake: never substance use type: does not use what type of physical activity do you participate in: weight training, walking, swimming frequency: 3-4 times per week HPI back pain : Chief Complaint: L sided low back pain Visit Number: 2 Details: OUMOU MARTINEZ is a 53 year old F who presents with continued L sided low back pain. She states that when standing on her feet for a prolonged amount if time, and frequent bending causes increased pain. Today she rates her pain a 3/10 and describes it as a dull ache that comes and goes, but can become sharp. Oumou denies any numbness, tingling, or radiculopathy. Location: L low back Duration: intermittent Aggravating or associated factors: prolonged standing and bending Pain Quality: aching, dull, sharp Exam Musc General: Yes normal posture, joint tenderness (L3-L5, L SI) and decreased ROM; no normal gait (favors L hip) Thoracic/Lumbar Spine: thor and lumb spine abnorm to inspection (L post rotation of pelvis), pain with thoraco-lumbar ROM with forward flexion and with lateral flexion to the left, paraspinal tenderness on the left greater than right (QL, Piriformis), thoraco-lumbar ROM limited with forward flexion and with lateral flexion to the left, thoraco-lumbar spasm on the left greater than right (L QL, L piriformis) Sacroiliac joints: on the left Office Procedures Chiropractic Treatments Procedures Manipulation: 3-4 regions (T10, L3, L5, LIL) Assessment AND Plan 1. Segmental and somatic dysfunction of thoracic region M99.02 Orders Orders: 2. Segmental and somatic dysfunction of lumbar region M99.03 Orders Orders: 3. Segmental and somatic dysfunction of pelvic region M99.05 Orders Orders: Plan Detail Goals Decrease pain and inflammation Barriers RA Follow Up 2 x week Coding Level of Care Code No Charge Diagnoses Segmental and somatic dysfunction of thoracic region M99.02 Segmental and somatic dysfunction of lumbar region M99.03 Segmental and somatic dysfunction of pelvic region M99.05 Additional Codes Procedures - Manipulation: 3-4 regions ([id number]) 03/31/18 1401 <Electronically signed by Valerie Kyle D.C.> Date Valerie Kyle D.C. Cosigner Signature: Date (if applicable) CC: CHIROPRACTIC REPORT Observed: 03/28/2018 Status: F Source: LEE 10:28 AM [facility] [address] [place] [address] OFFICE VISIT Date of Service: 03/22/18 MR#: [id number] Acct: [id number] Name: OUMOU MARTINEZ Rep #: [id number] : 1965 Provider: Valerie Kyle D.C. Age/Sex: 53/F Location: [facility] [place] Status: Signed Intake Vital Signs03/22/18 Height 5 ft 4 in 03/22/18 Weight: 223 lb 03/22/18 Body Mass Index (BMI) 38.2 Intake Visit Reasons: back pain Is patient in pain?: Yes Allergies gabapentin Allergy (Mild, Verified 03/15/18 09:29) sedation hydroxychloroquine [From Plaquenil] Allergy (Verified 03/15/18 09:29) Rash THYROID MEDICATION Allergy (Uncoded 03/15/18 09:29) Rash Medications Amlodipine [Norvasc] 10 mg PO QHS 02/05/16 [History Confirmed 03/16/18] Hydrochlorothiazide 12.5 mg PO PRN PRN 01/22/17 [History Confirmed 03/16/18] Lisinopril [Zestril] 20 mg PO DAILY 01/22/17 [History Confirmed 03/16/18] Simvastatin [Zocor] 20 mg PO QHS 01/22/17 [History Confirmed 03/16/18] traMADol [Ultram] 50 mg PO BID 01/22/17 [History Confirmed 03/16/18] cyclobenzaprine 10 mg tablet 10 mg PO PRN PRN 10/12/17 [History Confirmed 03/16/18] hydrocodone 5 mg-acetaminophen 325 mg tablet 1 tab PO Q6H PRN 10/12/17 [History Confirmed 03/16/18] levothyroxine 100 mcg tablet 75 mcg PO DAILY tab 10/12/17 [History Confirmed 03/16/18] Bacillus Coagulans [Digestive Advantage] 1 ea PO TID 03/15/18 [History Confirmed 03/16/18] Black Cohosh 540 mg PO BID 03/15/18 [History Confirmed 03/16/18] Cholecalciferol (Vitamin D3) [Vitamin D3] 2,000 unit PO DAILY 03/15/18 [History Confirmed 03/16/18] PFSH Medical History Cervical cancer (Acute) GERD (gastroesophageal reflux disease) (Acute) Graves disease (Acute) Spinal stenosis (Acute) Whiplash (Acute) Fibromyalgia (Chronic) IBS (irritable bowel syndrome) (Chronic) Surgical History History of foot surgery (Acute) History of tonsillectomy (Acute) H/O LEEP (Inactive) H/O dilation and curettage (Inactive) History of placement of ear tubes (Inactive) History of tonsillectomy (Inactive) Status post right foot surgery (Inactive) bladder lift (Inactive) rectal reconstruction (Inactive) Family History Mother Diabetes Hypertension Grandmother Rheumatoid arthritis Heart disease Father Hypertension Grandfather Heart disease Social History Smoking Status: Former smoker alcohol intake: never substance use type: does not use what type of physical activity do you participate in: weight training, walking, swimming frequency: 3-4 times per week HPI back pain : Chief Complaint: L sided low back pain Visit Number: 1 Referral source: PASHA barron Details: OUMOU MARTINEZ is a 53 year old F who presents with L sided low back pain. She states that on February 18 she fell into a hole with her L foot causing her L hip to fling forward. After the fall, the patient had severe pain for two weeks, although it recently has subsided leaving her with a tight ache . Prolonged sitting, and swimming cause increased pain and catching in the L hip. Currently while sitting the patient has no pain, although when the catching sensation comes on she rates the pain a 3/10, and describes it as a sore ache. Oumou denies any numbness, tingling, or radiculopathy. Onset: 02/18/18 Location: L low back Duration: intermittent Aggravating or associated factors: prolonged sitting and swimming Relieving factors: stretching Pain Quality: aching, dull, cramping Current Sensation: catching Exam Musc General: Yes normal posture, joint tenderness (L3-L5, L SI) and decreased ROM; no normal gait (favors L hip) Thoracic/Lumbar Spine: thor and lumb spine abnorm to inspection (L post rotation of pelvis), pain with thoraco-lumbar ROM with forward flexion and with lateral flexion to the left, paraspinal tenderness on the left greater than right (QL, Piriformis), thoraco-lumbar ROM limited with forward flexion and with lateral flexion to the left, thoraco-lumbar spasm on the left greater than right (L QL, L piriformis) Sacroiliac joints: on the left Neuro General: alert, awake, oriented x3, normal light touch, pain and propioception, no focal motor deficits Ortho Test CERVICAL THORACIC LUMBAR Kemps: Positive, Le Valsalvas: Negative SLR: Positive, Le Iliac Compression: Positive, Le Lumbar Series: Pos, fabere on L. Assessment AND Plan Problems 1. Segmental and somatic dysfunction of pelvic region M99.05 2. Segmental and somatic dysfunction of lumbar region M99.03 3. Segmental and somatic dysfunction of thoracic region M99.02 4. Rheumatoid arthritis, involving unspecified site, unspecified rheumatoid factor presence M06.9 Plan Recommend acute treatment plan. Reviewed lumbar imaging which revealed mildly decreased arthritis and a dextroscoliosis. Plan Detail Goals Decrease pain and inflammation Barriers RA Follow Up 2x/wk/3wks Coding Level of Care Code Off vis,new,level 3 Diagnoses Segmental and somatic dysfunction of pelvic region M99.05 Segmental and somatic dysfunction of lumbar region M99.03 Segmental and somatic dysfunction of thoracic region M99.02 Rheumatoid arthritis, involving unspecified site, unspecified rheumatoid factor presence M06.9 Rheumatoid arthritis location: unspecified site Rheumatoid factor presence: unspecified presence 03/28/18 1028 <Electronically signed by Valerie Kyle D.C.> Date Valerie Kyle D.C. Cosigner Signature: Date (if applicable) CC: SPINE 1 VIEW ANY Observed: 03/16/2018 Status: F Source: [place] L[place] 12:07 AM [facility] REPOSITORY [facility] Imaging Services [address] [place] [address] Spine 1 View Any Level MR#: [id number] Acct: [id number] Name: OUMOU MARTINEZ Rep #: [id number] : 1965 F 53 From: Hammad Roberts MD PCP: Silverio Landry DO Status: [facility] Study: Spine 1 View Any Level Date of Exam: 03/16/18 Exam# [id number] Ordering Dr: Leanne Calhoun MD STUDY: FLUOROSCOPIC IMAGING. REASON FOR EXAM: Female, 53 years old. Neck pain. FLUOROSCOPY TIME (if supplied): (0:18) minutes/seconds TECHNIQUE: Intraoperative imaging was provided for C7-T1 epidural block. COMPARISON: None. FINDINGS: Imaging provided for C7-T1 epidural block. RAD/Spine 1 View Any Level IMPRESSION: Imaging provided for C7-T1 epidural block. Electronically Signed: Hammad Roberts MD at 8:00 EDT Tel [phone], Service support , CC: Leanne Calhoun MD; Silverio Landry DO Coal Cager: Signed DOWNTIME REPORT Observed: 03/10/2018 Status: F Source: LEE 1:21 PM [facility] REPOSITORY [facility] Medical Records Department [address] [place] [address] Downtime Report MR#: [id number] Acct: [id number] Name: OUMOU MARTINEZ Rep #: [id number] : 1965 53 From: Ananda Andujar PCP: Silverio Landry DO Status: REG CLI This patient was seen during an EMR downtime February 21, 2018 - February 28, 2018. This patient may have a combination of paper and electronic documentation or all paper documentation. All documentation is viewable within the e-chart portion of [email or web address] for each patient visit. CBC W/DIFF, AUTOMATED Collected: 03/09/2018 Status: F Source: LEE 9:45 AM [facility] REPOSITORY TYPE CODE TESTS RESULT OUT OF RANGE REFERENCE UNITS LAB L100.1000 4.4-11.0 K/mm3 High WBC 11.7 LAB L100.1200 4.2-5.4 M/mm3 Normal RBC 4.56 LAB L100.1300 12.0-15.0 g/dl Normal HGB 13.4 LAB L100.1400 37-47 % Normal HCT 41.0 LAB L100.1500 81-99 fL Normal MCV 89.9 LAB L100.1600 27.0-32.0 pg Normal MCH 29.4 LAB L100.1700 32-36 g/gl Normal MCHC 32.7 LAB L100.1810 11.6-14.6 % Normal RDW CV 12.6 LAB L100.1820 35.1-43.9 fl Normal RDW SD 40.5 LAB L100.1900 150-450 K/mm3 Normal PLT 330 LAB L100.2000 6.2-12.0 fl Normal MPV 10.2 LAB L100.2100 47-70 % High NEUT% 73.2 LAB L100.2200 19-41 % Low LY% 18.0 LAB L100.2300 0-10 % Normal MONO% 6.6 LAB L100.2400 0-5 % Normal EO% 1.9 LAB L100.2500 0-1 % Normal BASO% 0.2 LAB L100.2550 0.0-0.9 % Normal IM GRAN % 0.100 Result Comment: IG% - Immature Granulocytes (promyelocytes, myelocytes and metamyelocytes) > 1% indicates that a LEFT SHIFT is Present. LAB L100.2620 2.0-7.7 X10 3/uL High Absolute Neut 8.6 LAB L100.2720 0.83-4.51 X10 3/ul Normal Absolute Lymph 2.11 Performed By: #### L100.0100 #### [facility] [place], [place], [address] VITAMIN D,25 HYDROXY Collected: 03/09/2018 Status: F Source: LEE 9:45 AM [facility] REPOSITORY TYPE CODE TESTS RESULT OUT OF REFERENCE UNITS RANGE LAB L506.1000 29.95-100.01 ng/mL Low Vitamin D 22.0 25-OH Result Comment: Vitamin D 25(OH) Status Range Deficiency <20 ng/mL (50nmol/L) Insuffciency 20 - 30 ng/mL (50 - 75 nmol/L) Sufficiency 30 - 100 ng/mL (75 - 250 nmol/L) Toxicity >100 ng/mL (>250 nmol/L) Performed By: #### L506.1000 #### [facility] [address] [place], [address] COMPREHENSIVE METABOLIC Collected: 03/09/2018 Status: F Source: LEE JUAREZ 9:45 AM [facility] REPOSITORY Order Comment: Has Patient had X-rays with Contrast this admission? N Is Patient on Heparin? N TYPE CODE TESTS RESULT OUT OF RANGE REFERENCE UNITS LAB L501.0100 74-106 mg/dL Normal GLU 90 Result Comment: Please note revised GLUCOSE reference range effective 2017. LAB L501.1000 7-18 mg/dL High BUN 19 LAB L501.1100 0.55-1.02 mg/dL Normal CREAT,SERUM 0.91 Result Comment: The validity of the calculated GFR AND GFRAA in patients over 70 years has not been determined. Clinical correlation is essential. LAB L501.1110 >60 mL/min Normal EST GFR 68 Result Comment: Non- GFR Calc LAB L501.1115 >60 mL/min Normal EST GFR - AA 82 Result Comment: GFR Calc LAB L501.1300 10-20 RATIO High BUN/CRE 20.8 LAB L501.1500 6.4-8.2 g/dL T Normal PROT 7.8 LAB L501.1800 3.2-5.0 g/dL Normal ALB 3.8 LAB L501.1950 2.2-4.2 g/dL Normal GLOB 4.0 LAB L501.2000 0.9-2.4 RATIO Normal A/G 1.0 LAB L501.2200 8.5-10.1 mg/dL CA Normal 9.1 LAB L501.4100 15-37 U/L Normal AST 15 LAB L501.4305 45-117 U/L Normal ALK P 105 LAB L501.4405 13-56 U/L Normal ALT 24 LAB L501.4600 0.20-1.00 mg/dL T Normal BILI 0.50 LAB L501.5300 136-145 mmol/L NA Normal 140 LAB L501.5600 3.5-5.1 mmol/L K Normal 4.1 LAB L501.5900 98-107 mmol/L CL Normal 103 LAB L501.6100 21.0-32.0 mmol/L Normal CO2 28.0 LAB L501.6200 5-15 Normal GAP 9 Performed By: #### L500.4050, L500.4100, L501.9520, L506.0400 #### [facility] [address] [place], [place], [id number] LIPID PROFILE Collected: 03/09/2018 Status: F Source: [place] 9:45 AM [facility] REPOSITORY Order Comment: Has Patient had X-rays with Contrast this admission? N Is Patient on Heparin? N TYPE CODE TESTS RESULT OUT OF RANGE REFERENCE UNITS LAB L501.4900 200 mg/dL Normal CHOL 145 Result Comment: <200 mg/dL Desirable 200-240 mg/dL Borderline >240 mg/dL High Risk LAB L501.5000 mg/dL Normal TRIG 95 Result Comment: The drugs N-Acetylcysteine and Metamizole may falsely depress this assay. Serum Triglycerides Reference Interval Normal <150 mg/dL Borderline high 150 - 199 mg/dL High 200 - 499 mg/dL Very High > or = 500 mg/dL LAB L501.6400 mg/dL Normal HDL 66 Result Comment: The drugs N-Acetylcysteine and Metamizole may falsely depress this assay. Reference Range HDL <40 mg/dL Low HDL Cholesterol HDL >or= 60 mg/dL High HDL Cholesterol LAB L501.6500 0-130 mg/dL Normal LDL 60 LAB L501.6600 5-40 mg/dL Normal VLDL 19 Performed By: #### L500.4050, L500.4100, L501.9520, L506.0400 #### [facility] [address] [place], [place], [id number] THYROID STIM HORMONE Collected: 03/09/2018 Status: F Source: [place] (TSH) 9:45 AM [facility] REPOSITORY Order Comment: Has Patient had X-rays with Contrast this admission? N Is Patient on Heparin? N TYPE CODE TESTS RESULT OUT OF RANGE REFERENCE UNITS LAB L501.9520 0.358-3.74 uIU/mL Normal TSH 1.88 Performed By: #### L500.4050, L500.4100, L501.9520, L506.0400 #### [facility] [address] [place], [address] T4 FREE DIRECT Collected: 03/09/2018 Status: F Source: LEE 9:45 AM [facility] REPOSITORY Order Comment: Has Patient had X-rays with Contrast this admission? N Is Patient on Heparin? N TYPE CODE TESTS RESULT OUT OF REFERENCE UNITS RANGE LAB L506.0400 0.76-1.46 ng/dL High T4 FREE 1.47 DIRECT Performed By: #### L500.4050, L500.4100, L501.9520, L506.0400 #### [facility] [address] 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 of containers..01 ThinPrep Vial Specimen Comment: A duplicate report has been generated due to demographic Specimen Comment: update of the patient's Date of , Age, Gender, and/or Specimen Comment: Specimen Date. Please review patient results, reference Specimen Comment: intervals, and calculated results that may have been Specimen Comment: affected by this change. TYPE CODE TESTS RESULT OUT OF RANGE REFERENCE UNITS LAB L7400.0800 . Normal DIAGN Comment Result Comment: NEGATIVE FOR INTRAEPITHELIAL LESION AND MALIGNANCY. LAB L7400.0900 . Normal ADEQ Comment Result Comment: Satisfactory for evaluation. Endocervical and/or squamous metaplastic cells (endocervical component) are present. LAB L7400.1000 Normal COMM Result Comment: The pap smear is a screening test designated to aid in the detection of pre-malignant and malignant conditions of the uterine cervix. It is not a diagnostic procedure and should not be used as the sole means of detecting cervical cancer. Both false-positive and false-negative reports do occur. LAB L7400.1400 . Normal PERFORM Comment Result Comment: Performed by Urbano Arreguin, Mold Shaker (ASCP) LAB L7400.2575 . Normal TEST METHOD Comment Result Comment: This liquid based ThinPrep(R) pap test was screened with the use of an image guided system. LAB L7400.2600 . Normal . COMM LAB L7400.2700 . Normal PAPSMR Comment Result Comment: The Pap smear is a screening test designed to aid in the detection of premalignant and malignant conditions of the uterine cervix. It is not a diagnostic procedure and should not be used as the sole means of detecting cervical cancer. Both false-positive and false-negative reports do occur. LAB L7400.2760 Normal HPV APTIMA, HR Result Comment: Test(s) Ordered HPV Aptima Collected 01 ThinPrep Vial Twisting Department End Finder Source Cervix; Endocervix Clinician Provided Cytology Info ACC [id number] PID [id number] Other Post Menopausal HPV RESULTS HPV Aptima [a], (01) Negative COMMENTS [a] This test detects fourteen high-risk HPV types (16/18/31/33/35/39/45/ 51/52/56/58/59/66/68) without differentiation. PERFORMING LABS (01) =G [facility] [address] [address] Lab: Dir: Jackie Paredes MD For inquiries, the physician may contact the lab using the numbers indicated above. Performed By: #### L7400.0377 #### [facility] (refer to report for specific site) refer to report for address and phone number SPINE 1 VIEW ANY Observed: 11/26/2017 Status: F Source: [place] LEVEL 3:21 AM [facility] REPOSITORY [facility] Imaging Services [address] [place] [address] Spine 1 View Any Level MR#: [id number] Acct: [id number] Name: OUMOU MARTINEZ Rep #: [id number] : 1965 F 52 From: Hammad Roberts MD PCP: Silverio Landry DO Status: [facility] Study: Spine 1 View Any Level Date of Exam: 11/26/17 Exam# [id number] Ordering Dr: Leanne Calhoun MD PROCEDURE: Epidural cervical block. DATE OF EXAMINATION: November 26, 2017. INDICATION: Female, 52 years old. Chronic neck pain. FLUOROSCOPY TIME (if supplied): (0:05) minutes/seconds Fluoroscopic services provided for cervical epidural. RAD/Spine 1 View Any Level IMPRESSION: Fluoroscopic services provided for a cervical epidural. Electronically Signed: Hammad Roberts MD at 7:57 EDT Tel [phone], Service support , CC: Leanne Calhoun MD; Silverio Landry DO Coal Cager: Signed ORTHOPEDIC VISIT Observed: 11/12/2017 Status: F Source: [place] REPORT 11:38 AM [facility] REPOSITORY [facility] Orthopaedics AND Sports Medicine [address] [place] [address] OFFICE VISIT Date of Service: 11/02/17 MR#: [id number] Acct: [id number] Name: OUMOU MARTINEZ Rep #: [id number] : 1965 Provider: Kym Conrad DO Age/Sex: 52/F Location: [facility] Status: Signed Intake Intake Visit Reasons: LEFT THUMB Is patient in pain?: Yes Pain scale (1-10): 5 Allergies gabapentin Allergy (Mild, Verified 11/02/17 09:11) sedation hydroxychloroquine [From Plaquenil] Allergy (Verified 11/02/17 09:11) Rash THYROID MEDICATION Allergy (Uncoded 02/05/16 17:53) Rash Medications Amlodipine [Norvasc] 10 mg PO QHS 02/05/16 [History Confirmed 11/02/17] Hydrochlorothiazide 12.5 mg PO DAILY PRN PRN 01/22/17 [History Confirmed 11/02/17] Lisinopril [Zestril] 20 mg PO DAILY 01/22/17 [History Confirmed 11/02/17] Simvastatin [Zocor] 20 mg PO QHS 01/22/17 [History Confirmed 11/02/17] TraMADol [Ultram] 50 mg PO BID 01/22/17 [History Confirmed 11/02/17] cyclobenzaprine 10 mg tablet 10 mg PO Q8H 10/12/17 [History Confirmed 11/02/17] hydrocodone 5 mg-acetaminophen 325 mg tablet 1 tab PO Q6H 10/12/17 [History Confirmed 11/02/17] levothyroxine 100 mcg tablet 75 mcg PO DAILY tab 10/12/17 [History Confirmed 11/02/17] PFSH Medical History Cervical cancer (Acute) GERD (gastroesophageal reflux disease) (Acute) Graves disease (Acute) Spinal stenosis (Acute) Whiplash (Acute) Fibromyalgia (Chronic) IBS (irritable bowel syndrome) (Chronic) Surgical History H/O LEEP (Inactive) H/O dilation and curettage (Inactive) History of placement of ear tubes (Inactive) History of tonsillectomy (Inactive) Status post right foot surgery (Inactive) bladder lift (Inactive) rectal reconstruction (Inactive) Family History Mother Diabetes Hypertension Grandmother Rheumatoid arthritis Heart disease Father Hypertension Grandfather Heart disease Social History Smoking Status: Former smoker HPI LEFT THUMB: Details: OUMOU MARTINEZ is a 52 year old F here today for left thumb. She complains of constant left thumb pain x2 years. No injury. Denies radiation of pain. No swelling. No tingling/numbness. She does have Tramadol but does not help with the thumb pain. She has seen Dr. Alvares and was given injection quit some time ago but didn't help. ROS Const Reports system reviewed and no additional complaints, except as docu Eyes Reports system reviewed and no additional complaints, except as docu ENT Reports system reviewed and no additional complaints, except as docu GI Reports system reviewed and no additional complaints, except as docu Reports system reviewed and no additional complaints, except as docu Musc Reports joint pain Skin/Breast Reports system reviewed and no additional complaints, except as docu Neuro Yes system reviewed and no additional complaints, except as docu Psych Reports system reviewed and no additional complaints, except as docu Endo Reports system reviewed and no additional complaints, except as docu Cezar/Lymph Reports system reviewed and no additional complaints, except as docu Aller/Immun Reports system reviewed and no additional complaints, except as docu Ortho Exam Left Wrist/Hand Skin/Wound: Yes CDI Contralateral Normal: Yes A1 senait trigger: No Left Wrist: Yes ROM-Extension 0-60, Yes ROM-Flexion 0-80, Yes ROM-Pronation 0-80 and Yes ROM-Supination 0-90 WRIST: cmc grind, ttp at dorsum of mcp. Office Procedures Ortho Injections Injections Yes CMC Left Details: Obtained consent for injection. Under sterile conditions, injected the patients left CMC with a 1.5cc cocktail of 1cc bupivacaine and 0.5cc kenalog. The patient tolerated the injection well without any noted complication. Patient should call our office if redness develops, pain worsens or if they have any concerns. Office Meds Kenalog Performing Provider: Kym Conrad DO Administered by: Kym Conrad DO on 11/02/17 09:50 Dose Route Admin Location Lot Number Expiration DateNDC Document Photographer 0.5 mg Intra-Articularleft cmc [id number] 11/18/18 6538-6516-66 GelSight Assessment AND Plan Problems 1. Primary osteoarthritis of first carpometacarpal joint of left hand M18.12 Plan discussed treatment options with patient. as pain is progressing and pos grind elected to proceed with injection of cmc joint. discussed surgical options as well with patient if injection doesnt work. All questions answered. Patient in agreement of plan.Follow up in as needed or sooner if pain, swelling, numbness or associated symptoms, or concerns develop. X-rays were reviewed. There is no obvious fracture, dislocation, or lucency noted. Compared with images from 2016 and explained that the cmc oa is progressing but none in mcp where her pain is greatest, likely referred pain. Her treatment options are do nothing, steroid injection in the cmc joint. Instructed to use it normally. Follow up as needed or sooner if pain, swelling, numbness or associated symptoms, or concerns develop. All questions answered. Patient in agreement of plan. 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[facility] [id number] 11/12/17 1138 <Electronically signed by Kym Conrad DO> Date Kym Conrad DO Cosigner Signature: Date (if applicable) CC: SCREENING MAMM (CAD), Observed: 11/09/2017 Status: F Source: LEE BIL 3:10 PM [facility] REPOSITORY [facility] Imaging Services [address] [place] [address] SCREENING MAMM (CAD), BILAT MR#: [id number] Acct: [id number] Name: OUMOU MARTINEZ Rep #: [id number] : 1965 F 52 From: Hammad Roberts MD PCP: Silverio Landry DO Status: REG CL Study: SCREENING MAMM (CAD), BILAT Date of Exam: 11/09/17 Exam# [id number] Ordering Dr: Avila Durand MD MAMMOGRAPHY - BILATERAL SCREENING REASON FOR EXAM: Female, 52 years old. Routine annual screening examination. PERTINENT HISTORY: Non-contributory. TECHNIQUE: Digital bilateral breast michael (3D mammographic acquisition) in the CC and MLO projections. 2-D mediolateral oblique (MLO) and craniocaudad (CC) views of both breasts were obtained. CAD: Full Field Digital Mammography with Computer Added Detection was performed. COMPARISON: Comparison is made with prior examination dated June 26, 2016 and December 21, 2014. FINDINGS: Breast Composition: There are scattered areas of fibroglandular density. There are no dominant masses or suspicious calcifications. No other significant abnormalities are identified. There has been no significant change since the prior study. HPBI/SCREENING MAMM (CAD), BILAT IMPRESSION: Stable bilateral screening mammogram. Yearly follow-up mammogram recommended. (A) ASSESSMENT CATEGORY: BIRADS Category 1: Negative. A letter regarding these results will be sent to the patient by the facility within 30 days. Approximately 10% of breast cancers are not detected by mammography. A normal mammogram should not delay biopsy of a clinically suspicious abnormality. [id number] Electronically Signed: Hammad Roberts MD at 9:04 EST Tel [phone], Service support , CC: Avila Durand MD; Silverio Landry DO Coal Cager: Signed FINGER(S) MIN 2 VIEWS Observed: 11/02/2017 Status: F Source: LEE 9:23 AM [facility] REPOSITORY [facility] Imaging Services [address] [place] [address]643 Finger(s) Min 2 Views MR#: [id number] Acct: [id number] Name: OUMOU MARTINEZ Rep #: [id number] : 1965 F 52 From: Joesph Castellon MD PCP: Silverio Landry DO Status: REG CLI Study: Finger(s) Min 2 Views Date of Exam: 11/02/17 Exam# [id number] Ordering Dr: Kym Conrad DO STUDY: X-RAY - LEFT HAND, ATTENTION FIRST FINGER REASON FOR EXAM: Female, 52 years old. Thumb pain. History of arthritis TECHNIQUE: 3 view(s) of the finger were obtained. COMPARISON: None. FINDINGS: There is moderate arthrosis of the basal joint. Normal metacarpal head. Normal metacarpophalangeal joint. Normal proximal phalanx. Distal phalanx. Normal interphalangeal joint. Normal soft tissues RAD/Finger(s) Min 2 Views IMPRESSION: Moderate osteoarthritis of the basal joint Electronically Signed: Joesph Castellon MD, FACR at 9:45 EST , Service support , CC: Kym Conrad DO; Silverio Landry DO Coal Cager: Signed ALLERGIES ALLERGIES DATE TYPE / CODE NAME / CODE REACTION SEVERITY SOURCE 06/28/2018 Drug gabapentin/F006 sedation DE Lee Allergy/[id number](S 202995(RXNORM) [facility] CT) Hospital Repository 06/28/2018 Drug hydroxychloroqu Rash Unknown Lee Allergy/[id number](S ine/[id number]( [facility] NOMED CT) RXNORM) Hospital Repository 06/25/2018 Miscellaneous THYROID Rash Unknown Lee Allergy/717524072(S MEDICATION [facility] CT) Hospital Repository ENCOUNTERS ENCOUNTERS ADMIT/DISCHARGE ACCOUNT ADMITTING ENCOUNTER LOCATION SOURCE NUMBER CLASS 10/12/2018 [id number] Ambulatory [place] Lee 3 [facility] ing:PT Repository 10/06/2018 [id number] Ambulatory [place] Lee 4 [facility] ing:RAD Repository 10/03/2018 [id number] Ambulatory Lee [place] 6 [facility] ing:US Repository 10/03/2018 [id number] Ambulatory [place] Lee 2 [facility] ing:NS Repository 09/15/2018/ [id number] Ambulatory Lee [place] 8 8 [facility] ing:NS Repository 08/16/2018/ [id number] Ambulatory BMSBuilding:B [place] 8 2 [facility] Repository 08/09/2018/ [id number] Ambulatory [place] 8 8 [facility] ing:NS Repository 07/12/2018/ [id number] Ambulatory Lee Lee 8 7 [facility] ing:NS Repository 06/28/2018 [id number] Ambulatory [place] 8 [facility] ing:HPRAD Repository 06/28/2018/ [id number] Ambulatory BMSBuilding:B [place] 8 2 [facility] Repository 06/25/2018/ [id number] Emergency [place] Lee 8 8 [facility] ing:ED Repository 06/17/2018/ [id number] Ambulatory Lee Lee 8 4 [facility] ing:SDCRoom: Repository AC02 06/16/2018/ [id number] Ambulatory BMSBuilding:B [place] 8 2 [facility] Repository 06/14/2018/ [id number] Ambulatory BMSBuilding:B [place] 8 9 [facility] Repository 06/14/2018/ [id number] Ambulatory [place] 8 4 [facility] ing:NS Repository 06/09/2018/ [id number] Ambulatory BMSBuilding:B Lee 8 4 [facility] Repository 06/07/2018/ [id number] Ambulatory BMSBuilding:B [place] 8 9 [facility] Repository 06/02/2018/ [id number] Ambulatory BMSBuilding:B Lee 8 0 [place] Repository 06/01/2018 [id number] Ambulatory Lee [place] 5 [facility] ing:LAB.FUTUR Repository E 05/31/2018/ [id number] Ambulatory BMSBuilding:B [place] 8 5 [facility] Repository 05/19/2018/ [id number] Ambulatory BMSBuilding:B Lee 8 1 [facility] Hospital Repository 05/17/2018/ [id number] Ambulatory BMSBuilding:B [place] 8 0 [place] Repository 05/10/2018/ [id number] Ambulatory BMSBuilding:B Lee 8 9 [facility] Repository 05/03/2018/ [id number] Ambulatory BMSBuilding:B [place] 8 4 [facility] Hospital Repository 05/02/2018/ [id number] Ambulatory Lee [facility] 8 8 [facility] ing[facility]NS Repository 04/28/2018/ [id number] Ambulatory BMSBuilding:B [place] 8 1 [facility] Hospital Repository 04/14/2018/ [id number] Ambulatory BMSBuilding:B Lee 8 5 [facility] Hospital Repository 04/11/2018/ [id number] Ambulatory BMSBuilding:B Lee 8 4 [facility] Hospital Repository 04/04/2018/ [id number] Ambulatory [place] Lee 8 0 [facility] ing[facility]NS Repository 03/31/2018/ [id number] Ambulatory BMSBuilding:B [place] 8 3 [facility] Hospital Repository 03/29/2018/ [id number] Ambulatory BMSBuilding:B Lee 8 2 [facility] Hospital Repository 03/22/2018/ [id number] Ambulatory BMSBuilding:B [place] 8 0 [facility] Hospital Repository 03/16/2018/ [id number] Ambulatory [place] 8 [facility]SDC Repository 03/09/2018 [id number] [facility] [place] [facility] ing:LAB.FUTUR Repository E 02/23/2018 [id number] Ambulatory [place] [facility]WOBLAB Repository 02/16/2018/ [id number] [facility]ulatory Lee [facility] 8 [facility] ing:NS Repository 11/26/2017/ [id number] Ambulatory [place] 8 [facility] ing[facility]SDC Repository 11/09/2017 [id number] [facility] [place] [facility]BI Repository 11/02/2017 [id number] [facility] ing:HPRAD Repository 11/02/2017/ [id number] Ambulatory BMSBuilding:B [place] 8 7 [facility] Repository PAYERS PAYERS ENCOUNTER GUARANTOR PAYER SUBSCRIBER SOURCE 10/12/2018 OUMOU Beebe Primary OUMOU Howard [id number] Insurance:CARESOURCEP [facility] Number: [id number] [id number] Repository 817[address]Vnk: (330) Date:2018-05-21P O [phone] () [address]ATTN: [place] [address]HL: 10/12/2018 Secondary NOT GIVENUNK Lee Insurance:SELF PAY [facility] Number: Effective Repository Date:2018-09-01 10/06/2018 OUMOU L Primary OUMOU Howard [id number] [facility] Number: [id number], [place] [id number] Repository 57679Rpe: (330) Date:2018-10-06 O [phone] () [address]ATTN: [place] [address]BN: 10/06/2018 Secondary NOT GIVENUNK [place] Insurance:SELF PAY [facility] Number: Effective Repository Date:2018-10-06 10/03/2018 OUMOU L Primary OUMOU Howard [id number] [facility]: [facility] Number: [id number], [place] [id number] Repository 8[address]Zwk: (330) Date:2018-09-28P O [phone] () [address]ATTN: [place] [address]YA: 10/03/2018 Secondary NOT GIVENUNK Lee Insurance:SELF PAY [facility] Number: Effective Repository Date:2018-09-28 10/03/2018 OUMOU L Primary OUMOU Howard [id number] Insurance:[facility] Number: [id number], [place] [id number] Repository [address]Hux: (330) Date:2018-02-04P O [phone] (HP) [address]ATTN: [place] [address]UT: 10/03/2018 Secondary NOT GIVENUNK [place] Insurance:SELF PAY [facility] Number: Effective Repository Date:2018-09-20 09/15/2018 OUMOU L Primary OUMOU L [place] [id number] Insurance:CARESOURCEP JACKSONDOB: [facility] Number: [id number], [place] [id number] Repository [address]Bdx: (330) Date:2018-02-04P O [phone] () [address]ATTN: [place] [address]ID: 09/15/2018 Secondary NOT GIVENUNK Lee Insurance:SELF PAY [facility] Number: Effective Repository Date:2018-08-20 08/16/2018 OUMOU L Primary OUMOU L [place] [id number] Insurance:CARESOURCEP [facility]: [facility] Number: [id number], [place] [id number] Repository [address]12[address]Gsy: (330) Date:2018-08-02 O [phone] () [address]ATTN: [place] [address]GJ: 08/16/2018 Secondary NOT GIVENUNK [place] Insurance:SELF PAY [facility] Number: Effective Repository Date:2018-08-16 08/09/2018 OUMOU L Primary OUMOU L [place] [id number] Insurance:CARESOURCEP FILLEYDOB: [facility] Number: [id number], [place] [id number] Repository 469[address]Qrx: (330) Date:2018-02-04P O [phone] (HP) [address]ATTN: [place] [address]AD: 08/09/2018 Secondary NOT GIVENUNK Lee Insurance:SELF PAY [facility] Number: Effective Repository Date:2018-07-21 07/12/2018 OUMOU L Primary OUMOU Howard [id number] Insurance:CARESOURCEP FILLEYDOB: [facility] Number: [id number], [place] [id number] Repository [address]Cep: (330) Date:2018-02-04P O [phone] () [address]ATTN: [place] [address]EM: 07/12/2018 Secondary NOT GIVENUNK [place] Insurance:SELF PAY [facility] Number: Effective Repository Date:2018-06-20 06/28/2018 OUMOU L Primary OUMOU Howard [id number] Insurance[facility]: [facility] Number: [id number], [place] [id number] Repository [address]Wpb: (330) Date:2018-06-28P O [phone] () [address]ATTN: [place] [address]UR: 06/28/2018 Secondary NOT GIVENUNK [place] Insurance:SELF PAY [facility] Number: Effective Repository Date:2018-06-28 06/28/2018 OUMOU L Primary OUMOU L Lee [id number] Insurance:CARESOURCEP [facility]: [facility] Number: [id number], [place] [id number] Repository [address]Uao: (330) Date:2018-06-14P O [phone] () [address]ATTN: [place] [address]YQ: 06/28/2018 Secondary NOT GIVENUNK [place] Insurance:SELF PAY [facility] Number: Effective Repository Date:2018-06-28 06/25/2018 OUMOU L Primary OUMOU L Lee [id number] Insurance:CARESOURCEP [facility]: [facility] Number: [id number], [place] [id number] Repository 75[address]Fzh: (330) Date:2018-06-25P O [phone] (HP) [address]ATTN: [place] [address]VX: 06/25/2018 Secondary NOT GIVENUNK Lee Insurance:SELF PAY [facility] Number: Effective Repository Date:2018-06-25 06/17/2018 ELENA Vanegas Primary OUMOU L Lee [id number] Insurance:CARESOURCEP FILLEYDOB: [facility] Number: [id number], [place] [id number] Repository [address]1018Edk: (330) Date:2018-05-20 O [phone] (HP) [address]ATTN: [place] [address]RF: 06/17/2018 Secondary NOT GIVENUNK [place] Insurance:SELF PAY [facility] Number: Effective Repository Date:2018-05-20 06/16/2018 OUMOU L Primary OUMOU L Lee [id number] Insurance:CARESOURCEP [facility]: [facility] Number: [id number], [place] [id number] Repository 28847Zmw: (330) Date:2018-06-07 O [phone] () [address]ATTN: [place] [address]NV: 06/16/2018 Secondary NOT GIVENUNK [place] Insurance:SELF PAY [facility] Number: Effective Repository Date:2018-06-16 06/14/2018 OUMOU L Primary OUMOU L [place] [id number] Insurance:CARESOURCEP [facility]: [facility] Number: [id number], [place] [id number] Repository 68[address]Bxo: (330) Date:2018-06-07 O [phone] (HP) [address]ATTN: [place] [address]VB: 06/14/2018 Secondary NOT GIVENUNK [place] Insurance:SELF PAY [facility] Number: Effective Repository Date:2018-06-14 06/14/2018 ELENA Vanegas Primary OUMOU Howard [id number] Insurance:CARESOURCEP [facility]: [facility] Number: [id number], [place] [id number] Repository 46020Nkg: (330) Date:2018-02-04P O [phone] () [address]ATTN: [place] [address]UB: 06/14/2018 Secondary NOT GIVENUNK Lee Insurance:SELF PAY [facility] Number: Effective Repository Date:2018-05-21 06/09/2018 OUMOU L Primary OUMOU L [place] [id number] Insurance:[facility]: [facility] Number: [id number], [place] [id number] Repository 85397Qkp: (330) Date:2018-05-17P O [phone] () [address]ATTN: [place] [address]IK: 06/09/2018 Secondary NOT GIVENUNK [place] Insurance:SELF PAY [facility] Number: Effective Repository Date:2018-06-09 06/07/2018 OUMOU L Primary OUMOU L Lee [id number] Insurance:CARESOURCEP [facility]: [facility] Number: [id number], [place] [id number] Repository 90[address]Hua: (330) Date:2018-05-31P O [phone] () [address]ATTN: [place] [address]TF: 06/07/2018 Secondary NOT GIVENUNK Lee Insurance:SELF PAY [facility] Number: Effective Repository Date:2018-06-07 06/02/2018 OUMOU L Primary OMUOU L [place] [id number] Insurance:CARESOURCEP [facility]: [facility] Number: [id number], [place] [id number] Repository [address]Hwb: (330) Date:2018-06-02P O [phone] (HP) [address]ATTN: [place] [address]MK: 06/02/2018 Secondary NOT GIVENUNK Lee Insurance:SELF PAY [facility] Number: Effective Repository Date:2018-06-02 06/01/2018 OUMOU L Primary OUMOU L Lee [id number] Insurance:CARESOURCEP JACKSONDOB: [facility] Number: [id number], [place] [id number] Repository 44432Ibc: (330) Date:2018-05-26P O [phone] () [address]ATTN: [place] [address]AF: 06/01/2018 Secondary NOT GIVENUNK Lee Insurance:SELF PAY [facility] Number: Effective Repository Date:2018-05-26 05/31/2018 ELENA A Primary OUMOU L [place] [id number] Insurance:CARESOURCEP [facility]: [facility] Number: [id number], [place] [id number] Repository 149[address]Auk: (330) Date:2018-05-17P O [phone] () [address]ATTN: [place] [address]OE: 05/31/2018 Secondary NOT GIVENUNK Lee Insurance:SELF PAY [facility] Number: Effective Repository Date:2018-05-31 05/19/2018 ELENA A Primary OUMOU L [place] [id number] Insurance:CARESOURCEP [facility]: [facility] Number: [id number], [place] [id number] Repository 36[address]Owb: (330) Date:2018-05-11P O [phone] (HP) [address]ATTN: [place] [address]RB: 05/19/2018 Secondary NOT GIVENUNK [place] Insurance:SELF PAY [facility] Number: Effective Repository Date:2018-05-19 05/17/2018 ELENA Vanegas Primary OUMOU Howard [id number] Insurance:CARESOURCEP FILLEYDOB: [facility] Number: [id number], [place] [id number] Repository 52758Xbf: (330) Date:2018-05-11P O [phone] () [address]ATTN: [place] [address]WQ: 05/17/2018 Secondary NOT GIVENUNK Lee Insurance:SELF PAY [facility] Number: Effective Repository Date:2018-05-17 05/10/2018 ELENA Vanegas Primary OUMOU Howard [id number] Insurance:[facility]: [facility] Number: [id number], [place] [id number] Repository 12265Uvz: (330) Date:2018-05-03P O [phone] () [address]ATTN: [place] [address]QH: 05/10/2018 Secondary NOT GIVENUNK [place] Insurance:SELF PAY [facility] Number: Effective Repository Date:2018-05-10 05/03/2018 ELENA Vanegas Primary OUMOU Howard [id number] Insurance:CARESOURCEP [facility]: [facility] Number: [id number], [place] [id number] Repository 07[address]Cik: (330) Date:2018-04-28P O [phone] () [address]ATTN: [place] [address]PW: 05/03/2018 Secondary NOT GIVENUNK [place] Insurance:SELF PAY [facility] Number: Effective Repository Date:2018-05-03 05/02/2018 ELENA Vanegas Primary OUMOU Howard [id number] Insurance:CARESOURCEP [facility]: [facility] Number: [id number], [place] [id number] Repository 72916Wcj: (330) Date:2018-02-04 O [phone] (HP) [address]ATTN: [place] [address]QS: 05/02/2018 Secondary NOT GIVENUNK [place] Insurance:SELF PAY [facility] Number: Effective Repository Date:2018-04-20 04/28/2018 ELENA A Primary OUMOU L [place] [id number] Insurance:CARESOURCEP FILLEYDOB: [facility] Number: [id number], [place] [id number] Repository 20838Clm: (330) Date:2018-04-14P O [phone] (HP) [address]ATTN: [place] [address]KX: 04/28/2018 Secondary NOT GIVENUNK [place] Insurance:SELF PAY [facility] Number: Effective Repository Date:2018-04-28 04/14/2018 ELENA A Primary OUMOU L Lee [id number] Insurance[facility]P [facility] Number: [id number], [place] [id number] Repository [address]Fxs: (330) Date:2018-03-31 O [phone] () [address]ATTN: [place] [address]MT: 04/14/2018 Secondary NOT GIVENUNK [place] Insurance:SELF PAY [facility] Number: Effective Repository Date:2018-04-14 04/11/2018 ELENA A Primary OUMOU L [place] [id number] Insurance:CARESOURCEP [facility] Number: [id number], [place] [id number] Repository [address]Ong: (330) Date:2018-03-31 O [phone] (HP) [address]ATTN: [place] [address]QW: 04/11/2018 Secondary NOT GIVENUNK [place] Insurance:SELF PAY [facility] Number: Effective Repository Date:2018-04-11 04/04/2018 ELENA Vanegas Primary OUMOU Howard [id number] Insurance:CARESOURCEP FILLEYDOB: [facility] Number: [id number], [place] [id number] Repository [address]Ihg: (330) Date:2018-02-04P O [phone] () [address]ATTN: [place] [address]PR: 04/04/2018 Secondary NOT GIVENUNK Lee Insurance:SELF PAY [facility] Number: Effective Repository Date:2018-02-18 03/31/2018 ELENA Vanegas Primary OUMOU Howard [id number] Insurance[facility]: [facility] Number: [id number], [place] [id number] Repository [address]Bxo: (330) Date:2018-03-22P O [phone] () [address]ATTN: [place] [address]UY: 03/31/2018 Secondary NOT GIVENUNK Lee Insurance:SELF PAY [facility] Number: Effective Repository Date:2018-03-31 03/29/2018 ELENA Vanegas Primary OUMOU Howard [id number] Insurance:CARESOURCEP [facility] Number: [id number], [place] [id number] Repository [address]Aqh: (330) Date:2018-03-22P O [phone] () [address]ATTN: [place] [address]ZK: 03/29/2018 Secondary NOT GIVENUNK [place] Insurance:SELF PAY [facility] Number: Effective Repository Date:2018-03-29 03/22/2018 ELENA Vanegas Primary OUMOU Howard [id number] Insurance:[facility] Number: [id number], [place] [id number] Repository [address]Fxm: (330) Date:2018-03-09P O [phone] (HP) [address]ATTN: [place] [address]FS: 03/22/2018 Secondary NOT GIVENUNK [place] Insurance:SELF PAY [facility] Number: Effective Repository Date:2018-03-22 03/16/2018 ELENA A Primary OUMOU L Lee [id number] Insurance:CARESOURCEP JACKSONDOB[facility] Number: [id number], [place] [id number] Repository [address]Amo: (330) Date:2018-03-14P O [phone] () [address]ATTN: [place] [address]LO: 03/16/2018 Secondary NOT GIVENUNK [place] Insurance:SELF PAY [facility] Number: Effective Repository Date:2018-03-14 03/09/2018 ELENA A Primary OUMOU L Lee [id number] Insurance:CARESOURCEP [facility] Number: [id number], [place] [id number] Repository [address]Scx: (330) Date:2018-03-05P O [phone] () [address]ATTN: [place] [address]WA: 03/09/2018 Secondary NOT GIVENUNK Lee Insurance:SELF PAY [facility] Number: Effective Repository Date:2018-03-05 02/23/2018 ELENA A Primary OUMOU L [place] [id number] Insurance:CARESOURCEP [facility] Number: [id number], [place] [id number] Repository [address]Iyy: (330) Date:2018-02-23P O [phone] (HP) [address]ATTN: [place] [address]UC: 02/23/2018 Secondary NOT GIVENUNK [place] Insurance:SELF PAY [facility] Number: Effective Repository Date:2018-02-23 02/16/2018 Elena Vanegas Primary OUMOU Howard [id number] Insurance:CARESOURCEP FILLEYDOB[facility] Number: [id number], [place] [id number] Repository [address]Hml: (330) Date:2018-02-04P O [phone] () [address]ATTN: [place] [address]JL: 02/16/2018 Secondary NOT GIVENUNK [place] Insurance:SELF PAY [facility] Number: Effective Repository Date:2018-02-04 11/26/2017 Elena Vanegas Primary OUMOU Howard [id number] Insurance:CARESOURCEP [facility] Number: [id number], [place] [id number] Repository [address]Ldu: (330) Date:2017-11-24P O [phone] () [address]ATTN: [place] [address]TQ: 11/26/2017 Secondary NOT GIVENUNK Lee Insurance:SELF PAY [facility] Number: Effective Repository Date:2017-11-24 11/09/2017 Elena Vanegas Primary OUMOU Howard [id number] Insurance:CARESOURCEP [facility] Number: [id number], [place] [id number] Repository [address]Pcc: (330) Date:2017-10-15P O [phone] (HP) [address]ATTN: [place] [address]CQ: 11/09/2017 Secondary NOT GIVENUNK Lee Insurance:SELF PAY [facility] Number: Effective Repository Date:2017-10-15 11/02/2017 Elena Vanegas Primary OUMOU Howard [id number] Insurance:CARESOURCEP [facility] Number: [id number], [place] [id number] Repository [address]Jnr: (330) Date:2017-11-02P O [phone] () [address]ATTN: [place] [address]HH: 11/02/2017 Secondary NOT GIVENUNK [place] Insurance:SELF PAY [facility] Number: Effective Repository Date:2017-11-02 11/02/2017 Elena Vanegas Primary ROMA A Lee [id number] Insurance:[facility] JOPLINJASON CRUZB: [facility] Number: [id number], [place] [id number] Repository [address]Lxr: (330) Date:2017-10-12P O [phone] () [address]ATTN: [place] [address]LL: 11/02/2017 Secondary NOT GIVENUNK Lee Insurance:SELF PAY [facility] Number: Effective Repository Date:2017-10-12
== END ==
PROVIDERS: Family Provider Family Medicine; PCP Family Medicine; Referring Provider Anesthesiology Pain Medicine; Visit Provider Anesthesiology Pain Medicine
DX: M54.2 Cervicalgia (principal)
CPT/HCPCS: 72040

== ENCOUNTER 2018-10-17 12:00 | Outpatient (RCR) | payer MEDICAID, SELFPAY | END 2018-10-20 23:59 | LOC: NS 12:00 | PROVIDERS: Family Provider Family Medicine; PCP Family Medicine; Visit Provider Podiatrist | DX: E66.8 Other obesity (principal); M06.872 Other specified rheumatoid arthritis, left ankle and foot; Z68.39 Body mass index [BMI] 39.0-39.9, adult; Z71.3 Dietary counseling and surveillance | CPT/HCPCS: 97803 ==

== ENCOUNTER 2018-11-08 13:33 | Outpatient (RCR) | payer MEDICAID, SELFPAY | END 2018-11-17 23:59 | LOC: NS 13:33 | PROVIDERS: Family Provider Family Medicine; PCP Family Medicine; Visit Provider Podiatrist | DX: E66.8 Other obesity (principal); M06.872 Other specified rheumatoid arthritis, left ankle and foot; Z68.39 Body mass index [BMI] 39.0-39.9, adult; Z71.3 Dietary counseling and surveillance | CPT/HCPCS: 97803 ==

== ENCOUNTER → 2018-11-26 14:32 | Outpatient (CLI) | payer MEDICAID, SELFPAY ==
[2018-11-26 08:55] VITALS: BMI 35.9
== END ==
PROVIDERS: Family Provider Family Medicine; PCP Family Medicine; Referring Provider Physician Assistant Medical; Visit Provider Physician Assistant Medical
DX: J02.9 Acute pharyngitis, unspecified (principal)
CPT/HCPCS: 87081

== ENCOUNTER 2018-12-06 11:34 | Outpatient (RCR) | payer MEDICAID, SELFPAY ==
[2018-11-11 09:11] VITALS: BMI 35.9
[2018-11-26 08:55] VITALS: BMI 35.9
== END 2018-12-18 23:59 ==
LOC: NS 11:34
PROVIDERS: Family Provider Family Medicine; PCP Family Medicine; Visit Provider Podiatrist
DX: E66.8 Other obesity (principal); M06.872 Other specified rheumatoid arthritis, left ankle and foot; Z68.39 Body mass index [BMI] 39.0-39.9, adult; Z71.3 Dietary counseling and surveillance
CPT/HCPCS: 97803

== ENCOUNTER 2018-12-08 10:00 | Outpatient (RCR) | payer MEDICAID, SELFPAY ==
--- NOTE | 2018-09-22 16:09 | HP.PTEVAL2 ---
Patient's Visit Information GERMÁN COSBY is a 53 year old F referred to Physical Therapy by Radha Collins DPM with a diagnosis of Medial Meniscal Tear. Date of Evaluation: 09/22/18 Physical Therapist: Yana Macias DPT - Visit Plan Frequency: 2x /Week Duration: 4 Weeks Plan: Aquatic-Focus on LE and core s/s - Subjective Findings: Fell at a wedding February 18- turned and fell on the ground on the right knee. [place] okay- swelled up- started working out in April and it started bothering her. Unsure if it was how she was doing the NuStep. When she was using her knee scooter it would lock up and buckle under her. So she learned to drag it. The pain is on the medial side of the knee. Saw Dr. Conrad 3 weeks who wanted to do an MRI who wanted her to do PT for 4 weeks prior. She wears a knee brace which helps. Since the knee brace and some exercises and its getting better. No pain in the last week. Has not been on the Nustep or any other exercise equiptment. Has not had injections in the knee. Feels the knee is on the mend. Feels like the knee is 50% better. Still locks up and sridhar under her sometimes. No sleeping issues. No radiating pain- no N/T. PMhx/Meds: no change since surgery. Does not work outside of her home. When she does have pain its along the distal knee cap and medial side of the knee. Had an injury in 1999 and had what is called sympathetic dystrophy which increases numbness. - Objective Objective: Posture: FH, RS, Increased kyphosis. Gait: CAM boot on the left LE- making gait slightly antaglic. Stairs:asc/desc 8 recip with 1 HR. HR/TR: able with weight shift to the right- left able to only lift the toes. SLS: Left: 3 seconds Right: 30 seconds. Palpation: not tender. ROM: 0-125 degrees. Strength: Right Ankle: 5/5, Knee: 4+/5, Hip: 4-/5 throughout, Core:fair minus. Flex: HS: moderate, Right Gastroc: moderate. Karissa: negative - Goals Goal 1:: Patient will be I with HEP and progression Goal Time Frame: 4-6 Weeks Goal 2:: Patient will asc/desc 8 stairs recip with 1 HR Goal Time Frame: 4-6 Weeks Goal 3:: Patient will demo 5/5 strength in LE where deficit Goal Time Frame: 4-6 Weeks Goal 4:: Lalanet will maintain proper posture t/o tx session to demo increased core s/s. Goal Time Frame: 4-6 Weeks - Rehabilitation Potential Physical Therapy Diagnosis: Patient presents with hypomobility- she has decreased strength and muscular endurance leading to increased pain with recreational activities and ADL's. Rehabilitation Potential: Fair - Anticipated Interventions Patient/Client Instruction: Educate patient on: Benefits of Fitness Program Therapeutic Exercise to Include: Strength training, Endurance training, Balance training, Body mechanics, Postural training, Flexibilty training, Gait and locomotor training, In an aquatic setting, Passive ROM, Active ROM, Dynamic Lumbar Stabilization For the Purpose of:: To improve muscle performance and motor function Thank you for the opportunity to evaluate your patient. For Medicare and Medicare HMO plans, please review the plan of care and approve it. It will need to be FAXED BACK to us at [phone] for Medicare purposes. For Medicare only, by signing this I certify the plan of care. Please let me know if there are questions or concerns regarding this plan of care. Physician Signature: Date:
--- NOTE | 2018-09-22 16:17 | HP.PTEVAL_ITS ---
Patient's Visit Information GERMÁN COSBY is a 53 year old F referred to Physical Therapy by Radha Collins DPM with a diagnosis of 2nd and 3rd Tarsal Metatarsal Fusion Left 06/17/18. Date of Evaluation: 09/22/18 Physical Therapist: Yana Macias DPT - Visit Plan Frequency: 2x /Week Duration: 4 Weeks Plan: Aquatics: focus on LE ROM and strength - Subjective Findings: Left foot surgery Jun 17, [address] Magana- 2nd and 3rd tarsal and metatarsal fusion. Was in a cast and was NWB for a long time. Has been in a walking boot for 3 weeks and has progressed to standing on it since then. Was doing great until she got the brace and the shoe- take it slow one hour and then she did it 2 hours and then she was done. Dr. Magana told her to put the boot back on September 02, 2018. She has been back in the boot for the last week. Currently the pain is more towards the outside of the foot- elevates a lot- Eases: elevation, ice and rest. Best: 0/10 Worst: 4/10 Agg: being on it to long. Describes the pain as burning sensation and achy. Uses a roll pillow to elevate the ankle. Sleep: wakes her up. Discomfort in the knee the last few days but no calf pain or toes. Toes tend to bother her so she is working on grabbing marbles. No n/t in the toes. Did the other foot done January by Dr. Magana. Sees her on the . Does not work outside of her home. PMHx: No changes since surgery- no pain meds in the last few weeks. WhyWeight program- will do until February. Comes in 2-3x a week. Nustep, weight machines. - Objective Posture: FH, RS, Increased kyphosis. Gait: CAM boot on the left LE- making gait slightly antaglic. Stairs:asc/desc 8 recip with 1 HR. HR/TR: able with weight shift to the right- left able to only lift the toes. SLS: Left: 3 seconds Righ t: 30 seconds. Palpation: not tender. ROM: DF: neutral with OP, PF: 60 degrees, Ever: 30 degrees Inv: 50 degrees. Strength: Right Ankle: 5/5, Left: 4-/5 in available range Knee: 4+/5, Hip: 4-/5 throughout, Core:fair minus. Flex: HS: moderate, Right Gastroc: moderate left Gastroc: severe Left SOlues: severe. Girth: metatarsals:24 cm Figure 4: 51 cm Mall: 22 cm. Palpation: tender to light touch throughout dorsum of the foot. Observation: bruised on top of the foot - Goals Goal 1:: Patient will be I with HEP and progression Goal Time Frame: 4-6 Weeks Goal 2:: Patient will ambulate >300 feet with a normalized gait pattern Goal Time Frame: 4-6 Weeks Goal 3:: Patient will demo 10 degrees of DF Goal Time Frame: 4-6 Weeks Goal 4:: Patient will demo decreased edema by 3 cm in figure 8 Goal Time Frame: 4-6 Weeks - Rehabilitation Potential Physical Therapy Diagnosis: Patient presents with hypomobility- she has decreased ROM, strength and muscular endurance leading to abnormal gait and inability to perform ADL's. Rehabilitation Potential: Good - Anticipated Interventions Patient/Client Instruction: Educate patient on: Benefits of Fitness Program Therapeutic Exercise to Include: Strength training, Endurance training, Balance training, Body mechanics, Postural training, Flexibilty training, Gait and locomotor training, In an aquatic setting, Passive ROM, Active ROM, Dynamic Lumbar Stabilization For the Purpose of:: To improve muscle performance and motor function Thank you for the opportunity to evaluate your patient. For Medicare and Medicare HMO plans, please review the plan of care and approve it. It will need to be FAXED BACK to us at [phone] for Medicare purposes. For Medicare only, by signing this I certify the plan of care. Please let me know if there are questions or concerns regarding this plan of care. Physician Signature: Date:
--- NOTE | 2018-11-11 08:30 | HP.PTDCS(2) ---
HP - PT D/C Summary (2) It has been my pleasure to treat GERMÁN COSBY under orders from Radha Collins DPM, for the diagnosis of Medial Meniscal Tear for a total of 7 visit(s). Discharge Date: Please see the following information for a summary of their discharge status. - Subjective Subjective: Patient reports that the knee is doing better- she has not had any pain with pivoting and pain. Feels the knee is 95%. Going up/down the stairs is a little difficult but its getting better. - Overall Improvement % Improvement: 95 - Objective Objective/Function/Assessment: Posture: FH, RS, Increased kyphosis. Gait: no CAM boot- decreased stance with decreased heel/toe on left. Stairs:asc/desc 8 recip with 1 HR- slow stacey and decreased control with descent. HR/TR: able with UE A on wall. SLS: Left: 5 seconds Right: 30 seconds. Palpation: not tender. ROM: 0-125 degrees. Strength: Right Ankle: 5/5, Knee: 4+/5, Hip: 4/5 throughout, Core:fair minus. Flex: HS: moderate, Right Gastroc: moderate. Karissa: negative - Goals Patient Goals: Improve Mobility, Improve Function, Decrease Pain, Alleviate Pain Goal 1:: Patient will be I with HEP and progression Goal 2:: Patient will asc/desc 8 stairs recip with 1 HR Goal 3:: Patient will demo 5/5 strength in LE where deficit Goal 4:: Patinet will maintain proper posture t/o tx session to demo increased core s/s. - Plan Plan: Discharge- will continue strengthening for LE bilateral for her left ankle - D/C Information If there are questions or concerns regarding this patient's physical therapy, please feel free to call me at [phone]. Thank you for the referral of this patient. Sincerely, Yana Macias DPT
--- NOTE | 2018-12-08 10:24 | HP.PTDCSUM ---
HP - PT D/C Summary It has been my pleasure to treat GERMÁN COSBY under orders from Radha Collins DPM, for the diagnosis of 2nd and 3rd Tarsal Metatarsal Fusion Left 06/17/18 for a total of 13 visit(s). Discharge Date: Please see the following information for a summary of their discharge status. - Subjective Subjective: Knee was doing great- but since she saw the MD she has been living in a brace- they denied MRI- will see the MD Wednesday. Left foot wears the orthotics in the house but wears the boot outside of the home. Pain is located in the fusion area but its not bad. Does have N/T in the foot. Worst: 3/10 Best: 0/10- she can get through the night without waking up. and can take walks. - Pain L foot Pain Intensity (Out of 10): 0 - Overall Improvement % Improvement: 65 - Objective Objective/Function: Difficult assessment of functional tasks due to signficant right knee pain. Posture: FH, RS, Increased kyphosis. Gait: antalgic- slow stacey. Decreased stance on the right LE but poor heel/toe pattern on the left with the brace on both the right knee and left ankle. Stairs:asc/desc 8 recip with 1 HR. HR/TR: able with weight shift to the right- left able to only lift the toes. SLS: Left: 10 seconds Right: 30 seconds reports discomfort on the left. Palpation: not tender. ROM: DF: neutral with OP, PF: 60 degrees, Ever: 30 degrees Inv: 50 degrees. Strength: Right Ankle: 5/5, Left: 4/5 in available range Knee: 4+/5, Hip: 4/5 throughout, Core:fair minus. Flex: HS: moderate, Right Gastroc: moderate left Gastroc: severe Left SOlues: severe. - Goals Goal 1:: Patient will be I with HEP and progression Goal Progress: Goal Met Goal 2:: Patient will ambulate >300 feet with a normalized gait pattern Goal Progress: Progressing Goal 3:: Patient will demo 10 degrees of DF Goal Progress: Progressing Goal 4:: Patient will demo decreased edema by 3 cm in figure 8 - Plan Plan: Discharge- getting the right knee evaluated by MD- plans to continue HEP with ankle - D/C Information If there are questions or concerns regarding this patient's physical therapy, please feel free to call me at [phone]. Thank you for the referral of this patient. Sincerely, CHERISE AcostaT
== END 2018-12-08 19:00 | disposition home or self-care (01) ==
LOC: PT 10:00
PROVIDERS: Family Provider Family Medicine; PCP Family Medicine; Referring Provider Podiatrist; Visit Provider Podiatrist
DX: S83.206D Unspecified tear of unspecified meniscus, current injury, right knee, subsequent encounter (principal); Z98.890 Other specified postprocedural states
CPT/HCPCS: 97110; 97113; 97161; 97164

== ENCOUNTER → 2018-12-23 10:52 | Outpatient (CLI) | payer MEDICAID, SELFPAY ==
[2018-11-26 08:55] VITALS: BMI 35.9
== END ==
PROVIDERS: Family Provider Family Medicine; PCP Family Medicine; Visit Provider Family Medicine
DX: N30.00 Acute cystitis without hematuria (principal)
CPT/HCPCS: 87086; 87088; 87186

== ENCOUNTER → 2018-12-29 10:32 | Outpatient (CLI) | payer MEDICAID, SELFPAY ==
[2018-11-26 08:55] VITALS: BMI 35.9
--- NOTE | 2018-12-29 10:35 | MRI_ITS ---
STUDY: MRI RIGHT KNEE REASON FOR EXAM: Right knee pain after a fall in February of last year. TECHNIQUE: Standardized fat and water weighted pulse sequences were obtained in all 3 orthogonal planes. COMPARISON: Radiographs 06/28/2018. FINDINGS: There is fraying of the posterior horn of the medial meniscus (proton-density sagittal images 32, 33) without discrete medial meniscal tear. There is mild arthrosis of the medial femorotibial compartment with small marginal osteophytes of the medial femoral condyle and mild partial-thickness chondral loss of the medial femoral condyle (T2 sagittal image 16). Normal medial femoral condyle and tibial plateau. Normal medial collateral ligamentous complex (MCL). Normal distal semimembranosus, gracilis and semitendinosus tendons. Normal lateral meniscus. Normal hyaline cartilage of the lateral femorotibial compartment. Normal lateral femoral condyle and tibial plateau. Normal proximal tibiofibular articulation. Normal lateral collateral (fibular) ligament. Normal popliteus tendon. Normal biceps femoris tendon. Normal anterior cruciate ligament (ACL). Normal posterior cruciate ligament (PCL). Normal congruent patellofemoral articulation. There is arthrosis of the patellofemoral compartment with partial-thickness chondral loss (T2 sagittal image 12) and subchondral bone edema of the patella. Normal medial and lateral patellar retinaculum. Normal visualized quadriceps tendon. Normal patellar tendon. Normal Hoffa's fat pad. There is a small joint effusion. There is a small intra-articular body in the medial femorotibial compartment (T2 sagittal image 16) measuring 0.4 cm in AP dimension. There is mild edema in the anterior subcutis adipose space. The otherwise visualized osseous structures are unremarkable. MRI/Lower Ext Joint Only (Routine) IMPRESSION: Fraying of the posterior horn of the medial meniscus without discrete meniscal tear. 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 Small intra-articular body. Small joint effusion. Electronically Signed: Adalid Quinonez MD at 12:37 EDT Tel , Service support ,
== END ==
PROVIDERS: Family Provider Family Medicine; PCP Family Medicine; Referring Provider Physician Assistant; Visit Provider Physician Assistant
DX: M23.306 Other meniscus derangements, unspecified meniscus, right knee (principal)
CPT/HCPCS: 73721

== ENCOUNTER 2019-01-03 08:30 | Outpatient (RCR) | payer MEDICAID, SELFPAY ==
[2018-11-26 08:55] VITALS: BMI 35.9
== END 2019-01-03 23:59 | disposition home or self-care (01) ==
LOC: NS 08:30
PROVIDERS: Family Provider Family Medicine; PCP Family Medicine; Visit Provider Podiatrist
DX: E66.8 Other obesity (principal); M06.872 Other specified rheumatoid arthritis, left ankle and foot; Z68.39 Body mass index [BMI] 39.0-39.9, adult; Z71.3 Dietary counseling and surveillance
CPT/HCPCS: 97803

== ENCOUNTER → 2019-01-07 07:11 | Outpatient (CLI) | payer MEDICAID, SELFPAY ==
[2019-01-06 09:08] VITALS: BMI 35.9
[2019-01-09 09:00] LABS: Vitamin D,25 Hydroxy 23.7 ng/mL (29.95-100.01)
== END ==
PROVIDERS: Family Provider Family Medicine; PCP Family Medicine; Referring Provider Podiatrist; Visit Provider Podiatrist
DX: M96.0 Pseudarthrosis after fusion or arthrodesis (principal); Z98.1 Arthrodesis status; E55.9 Vitamin D deficiency, unspecified
CPT/HCPCS: 36415; 82306

== ENCOUNTER → 2019-01-16 15:33 | Outpatient (CLI) | payer MEDICAID, SELFPAY ==
[2019-01-06 09:08] VITALS: BMI 35.9
--- NOTE | 2019-01-16 15:36 | RAD_ITS ---
STUDY: X-RAY - LEFT HAND REASON FOR EXAM: Female, 53 years old. Pain and bruising following injury. TECHNIQUE: 3 view(s) of the hand. COMPARISON: None. FINDINGS: Normal radiocarpal articulation. Normal distal radioulnar joint. Normal visualized carpal bones. Normal carpal articulations There is degenerative arthrosis of the carpometacarpal (CMC) articulation of the thumb. Normal second through fifth carpometacarpal joints. Normal metacarpi. Normal metacarpophalangeal joint of the thumb. Normal interphalangeal joint of the thumb. Normal proximal and distal phalanges of the thumb. Normal metacarpophalangeal joints of the second through fifth fingers. Normal proximal and distal interphalangeal joints of the second through fifth fingers. Normal phalanges of the second through fifth fingers. The soft tissue structures are unremarkable. RAD/Hand Min 3 Views IMPRESSION: No acute abnormality is seen. Electronically Signed: Hammad Roberts, at 16:04 EDT , Service support ,
== END ==
PROVIDERS: Family Provider Family Medicine; PCP Family Medicine; Referring Provider Physician Assistant; Visit Provider Physician Assistant
DX: S69.92XA Unspecified injury of left wrist, hand and finger(s), initial encounter (principal)
CPT/HCPCS: 73130

== ENCOUNTER → 2019-03-08 08:25 | Outpatient (CLI) | payer MEDICAID, SELFPAY ==
[2019-01-24 15:41] VITALS: BMI 35.9
[2019-03-08 10:30] LABS: Vitamin D,25 Hydroxy 53.5 ng/mL (29.95-100.01)
== END ==
PROVIDERS: Family Provider Family Medicine; PCP Family Medicine; Referring Provider Podiatrist; Visit Provider Podiatrist
DX: E55.9 Vitamin D deficiency, unspecified (principal); S92.302 Fracture of unspecified metatarsal bone(s), left foot
CPT/HCPCS: 36415; 82306

== ENCOUNTER → 2019-03-22 15:43 | Outpatient (CLI) | payer MEDICAID, SELFPAY ==
[2019-01-24 15:41] VITALS: BMI 35.9
--- NOTE | 2019-03-22 15:47 | CT_ITS ---
Study: CT of the left foot and ankle without contrast Prior study: None. PROCEDURE: Multiple computed radiographic images of the left foot and ankle were obtained at 2.5 mm intervals using contiguous 2.5 mm thick slices in the axial projection. Coronal and sagittal reconstructions were obtained. Radiation dose: Total exam DLP: 328.12 FINDINGS: There are status post arthrodesis changes of the second and third metatarsotarsal articulations with a dorsal fixation plate and screws involving this region. There is no evidence of new fracture, dislocation, or lytic or blastic osseous process. There are mild degenerative changes of the metatarsotarsal articulations. Several of the fixation screws extend beyond the confines of the second and third metatarsal bases into the soft tissues of the plantar aspect of the foot. Soft tissue fascial planes are preserved. CT/Extremity Lower without Contra IMPRESSION: Status post arthrodesis changes of the second and third metatarsal tarsal articulations with a dorsal fixation plate and multiple screws involving this region. The tips of several of the fixation screws extend beyond the confines of the second and third metatarsal bases into the soft tissues of the plantar aspect of the foot. There are mild degenerative changes of the metatarsotarsal articulations. Electronically Signed: Carter Oropeza MD at 22:35 EDT , Service support ,
== END ==
PROVIDERS: Family Provider Family Medicine; PCP Family Medicine; Referring Provider Podiatrist; Visit Provider Podiatrist
DX: M96.0 Pseudarthrosis after fusion or arthrodesis (principal); Z98.1 Arthrodesis status; M79.672 Pain in left foot
CPT/HCPCS: 73700

== ENCOUNTER → 2019-06-12 09:45 | Outpatient (CLI) | payer MEDICAID, SELFPAY ==
[2019-01-24 15:41] VITALS: BMI 35.9
--- NOTE | 2019-06-12 09:48 | BI_ITS ---
MAMMOGRAPHY - BILATERAL SCREENING REASON FOR EXAM: Female, 54 years old. Routine annual screening examination. PERTINENT HISTORY: Non-contributory. TECHNIQUE: Digital bilateral breast alyssia (3D mammographic acquisition) in the CC and MLO projections. 2-D mediolateral oblique (MLO) and craniocaudad (CC) views of both breasts were obtained. CAD: Full Field Digital Mammography with Computer Added Detection was performed. COMPARISON: Comparison is made with prior study dated November 09, 2017 and June 26, 2016. FINDINGS: Breast Composition: There are scattered areas of fibroglandular density. There are no dominant masses or suspicious calcifications. No other significant abnormalities are identified. There has been no significant change since the prior study. BI/SCREEN MAMM (CAD) W/ALYSSIA BILAT IMPRESSION: Stable bilateral screening mammogram. Yearly follow-up mammogram recommended. (A) ASSESSMENT CATEGORY: BIRADS Category 1: Negative. A letter regarding these results will be sent to the patient by the facility within 30 days. Approximately 10% of breast cancers are not detected by mammography. A normal mammogram should not delay biopsy of a clinically suspicious abnormality. [id number] Electronically Signed: Hammad Roberts, at 10:59 EDT , Service support ,
== END ==
PROVIDERS: Family Provider Family Medicine; PCP Family Medicine; Referring Provider Obstetrics & Gynecology; Visit Provider Obstetrics & Gynecology
DX: Z12.31 Encounter for screening mammogram for malignant neoplasm of breast (principal)
CPT/HCPCS: 77063; 77067

== ENCOUNTER → 2019-11-27 10:37 | Outpatient (CLI) | payer MEDICAID, SELFPAY ==
[2019-11-25 10:47] VITALS: BMI 35.9
[2019-11-27 10:40] LABS: Bacteria 0 SEEN /hpf (None Seen); Mucous, Urine 0 SEEN /hpf (<or=2+); Red Blood Cells-Urine 0 SEEN /hpf (0-5); White Blood Cells 0 SEEN /hpf (0-5)
[2019-11-27 10:44] LABS: Color, Urine Yellow (Yellow); Glucose, Dipstick Normal (Normal); Ketone-Dipstick Negative (Negative); Leukocyte Esterase-Dipstick Negative /ul (Negative); Nitrite-Dipstick Negative (Negative); Occult Blood-Urine Negative /ul (Negative); Protein-Dipstick Negative (Negative); Specific Gravity, Urine 1.015 (1.002-1.030); Urine Bilirubin Dipstick Negative (Negative); Urine Clarity Sl. Cloudy (Clear); Urine Urobilinogen Normal (Normal)
[2019-11-27 10:55] LABS: Squamous Epithelial Cells - UA 0-5 SEEN /hpf (5-10)
== END ==
PROVIDERS: PCP Family Medicine; Visit Provider Physician Assistant Medical
DX: N30.01 Acute cystitis with hematuria (principal)
CPT/HCPCS: 81001; 87077; 87086; 87088; 87186

== ENCOUNTER 2020-03-18 15:40 | Emergency (ER) | payer MEDICAID, SELFPAY ==
[2020-03-04 08:59] VITALS: BMI 35.9
[2020-03-18 15:41] VITALS: BP 164/97; PULSE 106; RESP 16; TEMP 36.3; O2SAT 99; BMI 38.9
[2020-03-18 16:40] VITALS: BP 127/100; PULSE 89; RESP 13; O2SAT 100
[2020-03-18 17:00] VITALS: BP 149/71; PULSE 87; RESP 17; O2SAT 100
--- NOTE | 2020-03-18 17:12 | CT_ITS ---
STUDY: CT CERVICAL SPINE WITHOUT CONTRAST REASON FOR EXAM: Female, 55 years old. fell down stairs/ POS. LOC. DISLA. Continual lightheadedness, repetitive questions. Hx of HTN and RA. RADIATION DOSAGE (If Supplied By Facility): CTDIvol = ( 23.92 ) mGy, DLP = ( 434.47 ) mGycm TECHNIQUE: High resolution transaxial imaging was performed without contrast material. Sagittal and coronal images were reconstructed. Individualized dose optimization techniques were used for this CT. COMPARISON: None FINDINGS: Normal craniovertebral junction. There are degenerative changes at C1-C2. There is mild cervical kyphosis. Normal vertebral bodies and posterior osseous elements. C2-3: Normal endplates. Normal disc height and morphology. Normal central canal and intervertebral neuroforamina. C3-4: Normal endplates. Normal disc height and morphology. There is no central canal or left foraminal stenosis with mild to moderate right foraminal stenosis There are moderate facet degenerative changes. C4-5: Normal endplates. Normal disc height and morphology. Normal central canal and intervertebral neuroforamina. C5-6: Is disc space narrowing posterior disc osteophyte complex mild central canal stenosis. There is mild to moderate right foraminal stenosis and mild left foraminal stenosis. There is uncinate hypertrophy. C6-7: There is disc space narrowing posterior disc osteophyte complex. There is significant uncinate hypertrophy. There is mild to moderate central canal stenosis with mild cord compression. Moderate bilateral foraminal stenosis. C7-T1: Normal endplates. Normal disc height and morphology. Normal central canal and intervertebral neuroforamina. Normal visualized soft tissue structures. CT/Spine Cervical without Contras IMPRESSION: multilevel spondylosis as above, mild cervical kyphosis, degenerative and/or muscular spasm, no fractures Electronically Signed: Hilton Padilla, at 18:19 EDT Tel , Service support ,
--- NOTE | 2020-03-18 17:12 | CT_ITS ---
STUDY: CT BRAIN WITHOUT CONTRAST REASON FOR EXAM: Female, 55 years old. fell down stairs/ POS. LOC. DISLA. Continual lightheadedness, repetitive questions. Hx of HTN and RA. RADIATION DOSAGE (If Supplied By Facility): CTDIvol = ( 44.99 ) mGy, DLP = ( 796.11 ) mGycm TECHNIQUE: Transaxial CT imaging of the brain was performed without administration of intravenous contrast material. Individualized dose optimization techniques were used for this CT. COMPARISON: MRI brain 07/19/2014 FINDINGS: Normal soft tissue structures. Normal calvarium. There are diffuse periventricular hypodensities with slight progression compared to prior exam.. Normal basal ganglia and thalami. Normal brainstem. Normal cerebellum. There is no intracranial hemorrhage. There are no findings of an acute ischemic infarction. Normal visualized paranasal sinuses. CT/Brain/Head without Contrast IMPRESSION: Slight progression of deep white matter abnormalities, progression of small vessel ischemia and/or demyelinating process, no acute findings Electronically Signed: Hilton Padilla, at 18:12 EDT Tel , Service support ,
--- NOTE | 2020-03-18 17:12 | RAD_ITS ---
STUDY: X-RAY - RIGHT HAND REASON FOR EXAM: Female, 55 years old. BILATERAL HAND PAIN AFTER FALLING DOWN STEPS TECHNIQUE: 3 view(s) of the hand. COMPARISON: None. FINDINGS: Normal radiocarpal articulation. Normal distal radioulnar joint. There are small osteophytes of the carpal bones.. Normal carpal articulations Normal carpometacarpal articulation of the thumb. Normal second through fifth carpometacarpal joints. Normal metacarpi. Normal metacarpophalangeal joint of the thumb. Normal interphalangeal joint of the thumb. Normal proximal and distal phalanges of the thumb. There are small osteophytes of the phalanges. There is mild soft tissue edema. RAD/Hand Min 3 Views IMPRESSION: Mild soft tissue edema, mild degenerative changes, no fractures Electronically Signed: Hilton Padilla, at 18:03 EDT Tel , Service support ,
--- NOTE | 2020-03-18 17:13 | RAD_ITS ---
STUDY: X-RAY - LEFT HAND REASON FOR EXAM: Female, 55 years old. BILATERAL HAND PAIN AFTER FALLING DOWN STEPS TECHNIQUE: 3 view(s) of the hand. COMPARISON: 01/16/2019. FINDINGS: Normal radiocarpal articulation. Normal distal radioulnar joint. Normal visualized carpal bones. Normal carpal articulations Normal carpometacarpal articulation of the thumb. Normal second through fifth carpometacarpal joints. Normal metacarpi. Normal metacarpophalangeal joint of the thumb. Normal interphalangeal joint of the thumb. Normal proximal and distal phalanges of the thumb. Normal metacarpophalangeal joints of the second through fifth fingers. Normal proximal and distal interphalangeal joints of the second through fifth fingers. Normal phalanges of the second through fifth fingers. There are benign soft tissue calcifications adjacent to the distal radius which were present on prior exam. RAD/Hand Min 3 Views IMPRESSION: No acute findings Electronically Signed: Hilton Padilla, at 18:06 EDT Tel , Service support ,
--- NOTE | 2020-03-18 17:13 | RAD_ITS ---
STUDY: X-RAY - LEFT ANKLE REASON FOR EXAM: Female, 55 years old. BILATERAL ANKLE PAIN AFTER FALLING DOWN STEPS TECHNIQUE: 3 view(s) of the ankle. COMPARISON: 06/17/2018 FINDINGS: Normal visualized distal tibia and fibula. Normal medial and lateral malleoli. Normal tibiotalar articulation and ankle mortise. There is soft tissue edema. No acute bony fractures. There is postsurgical changes of the foot with plate and screws. There is fracture of one of the surgical screws. RAD/Ankle min 3 Views IMPRESSION: soft tissue edema. No acute bony fractures. There is postsurgical changes of the foot with plate and screws. There is fracture of one of the surgical screws. Electronically Signed: Hilton Padilla, at 17:58 EDT Tel , Service support ,
--- NOTE | 2020-03-18 17:29 | RAD_ITS ---
STUDY: X-RAY - RIGHT ANKLE REASON FOR EXAM: Female, 55 years old. BILATERAL ANKLE PAIN AFTER FALLING DOWN STEPS TECHNIQUE: 3 view(s) of the ankle. COMPARISON: 01/29/2017 FINDINGS: Normal visualized distal tibia and fibula. Normal medial and lateral malleoli. Normal tibiotalar articulation and ankle mortise. There is soft tissue edema. There are postsurgical changes of the foot with multiple surgical screws and plate and screws. There is linear small avulsion fracture of the base of the fifth metatarsal of unknown age. RAD/Ankle min 3 Views IMPRESSION: There is soft tissue edema. There are postsurgical changes of the foot with multiple surgical screws and plate and screws. There is linear small avulsion fracture of the base of the fifth metatarsal of unknown age. Electronically Signed: iHlton Padilla, at 18:01 EDT Tel , Service support ,
[2020-03-18 17:36] LABS: Absolute Neutrophil Count 15.3 X10^3/uL (2.0-7.7); Basophil# 0.05 X10^3/uL; Basophil% 0.3 % (0-1); Eosinophil# 0.12 X10^3/uL; Eosinophils% 0.6 % (0-5); Hematocrit 43.1 % (37-47); Hemoglobin 14.5 g/dL (12.0-15.0); Mean Corp Hgb Conc 33.6 g/dL (32-36); Mean Platelet Vol. 9.5 fl (6.2-12.0); Monocyte# 1.24 X10^3/uL; Monocyte% 6.2 % (0-10); NRBC Flagged by Analyzer 0 % (0-5); Neutrophil # 15.26 X10^3/uL (2.7-7.7); Neutrophil % 76.3 % (47-70); Platelet Count 352 K/mm3 (150-450); RBC Distribution Width CV 12.5 % (11.6-14.6); RBC Distribution Width SD 40.7 fl (35.1-43.9); Red Blood Count 4.84 M/mm3 (4.2-5.4)
[2020-03-18 17:59] VITALS: BP 156/77; PULSE 79; RESP 17; O2SAT 98
[2020-03-18 18:19] LABS: ALB/GLOB Ratio 0.9 RATIO (0.9-2.4); AST(SGOT) 24 U/L (15-37); Alanine Aminotransfer ALT/SGPT 32 U/L (13-56); Alkaline Phosphatase 127 U/L (45-117); Anion Gap 5 (5-15); BUN 22 mg/dL (7-18); BUN/Creat Ratio 21.8 RATIO (10-20); Calcium,Total 8.9 mg/dL (8.5-10.1); Chloride 101 mmol/L (98-107); Creatinine, Serum 1.01 mg/dL (0.55-1.02); EST Glomerular Filtration Rate 60 mL/min (>60); Est Glom Filt Rate - Afr Amer 73 mL/min (>60); Globulin 4.3 g/dL (2.2-4.2); Glucose 146 mg/dL (74-106); Potassium 4.3 mmol/L (3.5-5.1); Protein, Total 8.3 g/dL (6.4-8.2); Sodium Level 133 mmol/L (136-145)
--- NOTE | 2020-03-18 18:46 | ED.DCSUM_ITS ---
History of Present Illness Chief Complaint: Syncope Informant: Patient, Significant Other Onset: Today Narrative: Patient states that today she was swimming. She apparently fell down a flight of stairs. states that she was awake when she got there but she bianca eves she lost consciousness. She does not remember doing some activities prior to the fall. In particular she does not remember eating a peanut butter and jelly sandwich. She states that she apparently had changed out of her swimsuit but does not understand why she would change out of her swimsuit and not place a sanitary pad on. She states that something she would never do. She notes headache. She notes bilateral ankle pain and bilateral hand pain. She notes chronic neck and back pain but states that that seems to be at her baseline. No chest or abdominal symptoms. She denies any bleeding from the head. Past Medical History - Allergies and Home Meds Allergies/Adverse Reactions: Allergies gabapentin Allergy (Mild, Verified 03/18/20 15:44) sedation hydroxychloroquine [From Plaquenil] Allergy (Verified 03/18/20 15:44) Rash THYROID MEDICATION Allergy (Uncoded 03/18/20 15:44) Rash Primary Care Physician: Silverio Landry DO [Primary Care Provider] - Smoking Status: Former smoker - Family History Paternal Family History: Family History (Last Reviewed 03/04/20 @ 08:58 by Melissa Augustin) Mother Diabetes Hypertension Grandmother Rheumatoid arthritis Heart disease Father Hypertension Grandfather Heart disease Family History: Reports: Stroke - In paternal grandfather Review of Systems General: Denies: Chills, Fever, Sweats Eyes: Denies: Visual changes - bilaterally, Diplopia ENT: Denies: Rhinorrhea, Sore throat Cardiovascular: Denies: Chest pain, Palpitations Respiratory: Denies: Dyspnea, Cough, Dyspnea on exertion Gastrointestinal: Denies: Abdominal pain, Nausea, Vomiting, Diarrhea, Melena, Hematochezia Genitourinary: Denies: Dysuria, Hematuria, Frequency Musculoskeletal: Reports: Neck pain, Back pain, Extremity Pain Skin: Denies: Rash, Wounds Neurological: Reports: Headache. Denies: Weakness, Numbness Physical Exam Vital Signs/Narrative: Vital Signs Temp Pulse Resp BP Pulse Ox 03/18/20 17:59 79 17 156/77 H 98 03/18/20 17:00 87 17 149/71 H 100 03/18/20 16:40 89 13 127/100 H 100 03/18/20 15:41 97.4 F L 106 H 16 164/97 H 99 Inital Vital Signs reviewed: Yes General: Well nourished, Well developed, No Acute Distress Head: Normocephalic, Atraumatic Eyes: Perrl, EOMI ENT: Moist mucous membranes, No rhinorrhea Neck: Supple, Nontender Cardiovascular: Regular rate, Regular rhythm, No murmurs Respiratory: No distress, CTA bilaterally, Chest nontender Abdomen: Soft, Nontender, Nondistended, Normal bowel sounds Back: Nontender, Normal Inspection Extremities: No edema, - - There is some swelling over the lateral malleolus of the right ankle.. No proximal fifth metatarsal pain or fibular head pain. Patient complains of some tenderness over the medial aspect of the left ankle. The patient has tenderness over several digits of the right and left hand. Skin: Normal color, No rash Neurological: Alert, Oriented x3, Cranial nerves II-XII grossly intact, Normal Strength, Normal Sensation Psychological: Normal affect, Normal Mood Diagnostic/Tx/Re-eval Clinical Impression(s) from Imaging Studies Brain CT 03/18/20 17:12 IMPRESSION: Slight progression of deep white matter abnormalities, progression of small vessel ischemia and/or demyelinating process, no acute findings Electronically Signed: Hilton Padilla at 18:12 EDT Tel , Service support , Cervical Spine CT 03/18/20 17:12 IMPRESSION: multilevel spondylosis as above, mild cervical kyphosis, degenerative and/or muscular spasm, no fractures Electronically Signed: Hilton Padilla at 18:19 EDT Tel , Service support , Hand X-Ray 03/18/20 17:12 IMPRESSION: Mild soft tissue edema, mild degenerative changes, no fractures Electronically Signed: Hilton Padilla at 18:03 EDT Tel , Service support , Ankle X-Ray 03/18/20 17:13 IMPRESSION: soft tissue edema. No acute bony fractures. There is postsurgical changes of the foot with plate and screws. There is fracture of one of the surgical screws. Electronically Signed: Hilton Padilla, at 17:58 EDT Tel , Service support , Hand X-Ray 03/18/20 17:13 IMPRESSION: No acute findings Electronically Signed: Hilton Padilla, at 18:06 EDT Tel , Service support , Ankle X-Ray 03/18/20 17:29 IMPRESSION: There is soft tissue edema. There are postsurgical changes of the foot with multiple surgical screws and plate and screws. There is linear small avulsion fracture of the base of the fifth metatarsal of unknown age. Electronically Signed: Hilton Padilla, at 18:01 EDT Tel , Service support , - Medical Decision Making CT the head and cervical spine negative. Think the patient most likely suffered a concussion with retrograde amnesia. I cannot explain to her why she would have gotten dressed the way she would have her some of the activities that she would have done that she would not normally have done prior to the fall. As far as the ankle films. Right ankle shows possible old avulsion off the fifth metatarsal. Specifically she is not tender there when I pushed. Left foot shows no tenderness over the surgical sites. I would suspect that she sustained a significant force that would have broke a screw it would be swollen and painful. At this point patient be discharged home I have instructed her to follow-up with her doctor within the week. ED Disposition - Plan for ED Patient: Diagnosis: Concussion with loss of consciousness <= 30 min, Retrograde amnesia, Left ankle sprain, Right ankle sprain, Contusion of hand, left, Contusion of right hand Instructions: ED SOFT TISSUE CONTUSION, ED Concussion Referrals: Silverio Landry DO [Primary Care Provider] - 1 Week Radha Collins DPM [STAFF PHYSICIAN] - (keep scheduled appointment)
[2020-03-18 19:01] VITALS: BP 150/94; PULSE 80; RESP 15; O2SAT 96
== END 2020-03-18 19:02 | disposition home or self-care (01) ==
PROVIDERS: Emergency Provider Emergency Medicine; PCP Family Medicine
DX: S06.0X1A Concussion with loss of consciousness of 30 minutes or less, initial encounter (principal); R41.2 Retrograde amnesia; S93.402A Sprain of unspecified ligament of left ankle, initial encounter; S93.401A Sprain of unspecified ligament of right ankle, initial encounter; S60.222A Contusion of left hand, initial encounter; S60.221A Contusion of right hand, initial encounter; W10.9XXA Fall (on) (from) unspecified stairs and steps, initial encounter
CPT/HCPCS: 70450; 72125; 73130; 73610; 80053; 85025; 99284; J7030; A4216

== ENCOUNTER 2020-03-20 14:01 | Emergency (ER) | payer MEDICAID, SELFPAY ==
[2020-03-20 14:03] VITALS: BP 160/94; PULSE 94; RESP 17; TEMP 37; O2SAT 100; BMI 40.6
--- NOTE | 2020-03-20 15:09 | ED.RN ---
pt was just seen here on wed for fall and concussion dx. today was watering foley and when bent over for bucket of water reported that felt feelings similar to when blacked out and fell down the stairs on wednesday pt reported that vision grew dim slightly and felt like could pass out. pt ambulates back to room with campaign consultant previously.
[2020-03-20 15:30] VITALS: BP 162/65; PULSE 78; RESP 16; O2SAT 99
--- NOTE | 2020-03-20 15:56 | EKG12_ITS ---
Test Reason : CHEST HEAVINESS Blood Pressure : / mmHG Vent. Rate : 086 BPM Atrial Rate : 086 BPM P-R Int : 198 ms QRS Dur : 086 ms QT Int : 358 ms P-R-T Axes : 078 057 067 degrees QTc Int : 428 ms Normal sinus rhythm Normal ECG Confirmed by NOREEN BREWSTER ([id number]), movie editor JERRY REAVES ([id number]) on 03/25/2020 2:07:02 PM Referred By: HOLLY/SILVESTRE Confirmed By:NOREEN BREWSTER
--- NOTE | 2020-03-20 16:02 | RAD_ITS ---
STUDY: X-RAY CHEST REASON FOR EXAM: Female, 55 years old. CHEST HEAVINESS TECHNIQUE: Single AP portable view of the chest. COMPARISON: May 06, 2016. FINDINGS: The lungs are clear and expanded. There is no demonstrated pleural abnormality. Normal size heart. Normal mediastinum and yulisa. Normal visualized pulmonary arteries. Normal visualized aortic arch and descending thoracic aorta. There is a levoscoliosis of the thoracic spine. There is mild degenerative change. Normal visualized ribs, clavicles, and shoulders. There is no demonstrated abnormality of the visualized soft tissue structures of the upper abdomen. RAD/Chest 1 View (Portable) IMPRESSION: Degenerative changes, as described above. No demonstrated acute cardiopulmonary process. Electronically Signed: Miguelito Gonzalez MD at 16:25 EDT , Service support ,
--- NOTE | 2020-03-20 16:30 | ED.DCSUM_ITS ---
History of Present Illness Chief Complaint: General Illness Informant: Patient Narrative: Patient is a 55-year-old female with a past medical history of hypothyroidism who presents to the emergency department after she had what she grabs as a aura. 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 When she went to stand up she felt a strange sensation from the epigastrium to the top of her head. [place] like something was floating around her. She did feel slightly lightheaded like she could potentially pass out but this resolved quickly. Did not have any pain. She denies any shortness of breath with this. Of note she was seen in the emergency department on Wednesday after she fell and hit her head. She did have a negative CT scan at that time. She is currently denying any headache, vision changes. He felt like she was going to get nauseous during the episode today but did not vomit. Upon arrival to the emerge permit her symptoms have completely resolved. She denies loss of strength or sensation in her extremities. She denies any abdominal pain. No alcohol or drug use. Former smoker but quit in 2007. Past Medical History - Allergies and Home Meds Allergies/Adverse Reactions: Allergies gabapentin Allergy (Mild, Verified 03/20/20 14:02) sedation hydroxychloroquine [From Plaquenil] Allergy (Verified 03/20/20 14:02) Rash THYROID MEDICATION Allergy (Uncoded 03/20/20 14:02) Rash Primary Care Physician: Silverio Landry DO [Primary Care Provider] - Smoking Status: Former smoker - Family History Paternal Family History: Family History (Last Reviewed 03/04/20 @ 08:58 by Melissa Augustin) Mother Diabetes Hypertension Grandmother Rheumatoid arthritis Heart disease Father Hypertension Grandfather Heart disease Family History: Reports: Stroke - In paternal grandfather Review of Systems All systems negative except as indicated General: Denies: Chills, Fever, Sweats Eyes: Denies: Visual changes - bilaterally, Diplopia ENT: Denies: Rhinorrhea, Sore throat Cardiovascular: Denies: Chest pain, Palpitations Respiratory: Denies: Dyspnea, Cough, Dyspnea on exertion Gastrointestinal: Denies: Abdominal pain, Nausea, Vomiting, Diarrhea, Melena, Hematochezia Genitourinary: Denies: Dysuria, Hematuria, Frequency Musculoskeletal: Denies: Back pain, Extremity Pain Skin: Denies: Rash, Wounds Neurological: Denies: Headache, Weakness, Numbness Physical Exam Vital Signs/Narrative: Vital Signs Temp Pulse Resp BP Pulse Ox 03/20/20 15:30 78 16 162/65 H 99 03/20/20 14:03 98.6 F 94 17 160/94 H 100 Inital Vital Signs reviewed: Yes General: Well nourished, Well developed, No Acute Distress Head: Normocephalic, Atraumatic Eyes: Perrl, EOMI ENT: Moist mucous membranes, No rhinorrhea Neck: Supple, Nontender Cardiovascular: Regular rate, Regular rhythm, No murmurs Respiratory: No distress, CTA bilaterally, Chest nontender Abdomen: Soft, Nontender, Nondistended, Normal bowel sounds Back: Nontender, Normal Inspection Extremities: Nontender, No edema Skin: Normal color, No rash Neurological: Alert, Oriented x3, Cranial nerves II-XII grossly intact, Normal Strength, Normal Sensation, - - No discoordination. Negative for: Confused, Weakness Psychological: Normal affect, Normal Mood Diagnostic/Tx/Re-eval - Medical Decision Making Patient presented to the emergency department for a 15-minute episode of having an aura. She did sustain a closed head injury 2 days ago. She is currently denying any headache or vision changes. No nausea or vomiting. All of her symptoms have completely resolved. Discussed this with the patient and we decided to work-up with blood work, EKG and chest x-ray. Did not feel the need to perform a repeat head CT and her complete lack of symptoms at this time. Lab work do not reveal any significant acute abnormality. She has been asymptomatic throughout emergency department stay. Does have an appointment with her PCP in the upcoming few days. She is to keep this appointment. I did discuss concussion symptoms which could likely be contributing to what she had today. She does feel comfortable being discharged home at this time. I did discuss strict return precautions including any worsening of a headache, vision changes, nausea/vomiting or any focal weakness. Patient understands and is agreeable with this plan. ED Disposition - Plan for ED Patient: Disposition: Home or Assisted Living Diagnosis: Episodic lightheadedness, Concussion Instructions: ED Concussion Referrals: Silverio Landry DO [Primary Care Provider] - 2 Days
[2020-03-20 16:43] LABS: Absolute Lymphocyte Count 2.37 X10^3/uL (0.83-4.51); Absolute Neutrophil Count 10.4 X10^3/uL (2.0-7.7); Basophil# 0.06 X10^3/uL; Basophil% 0.4 % (0-1); Eosinophils% 0.7 % (0-5); Hematocrit 42.8 % (37-47); Hemoglobin 14.1 g/dL (12.0-15.0); Lymphocyte # 2.37 X10^3/ul (4.0); Lymphocyte % 16.9 % (19-41); Mean Corp Hgb Conc 32.9 g/dL (32-36); Mean Corpuscular Hgb 29.6 pg (27.0-32.0); Mean Corpuscular Volume 89.7 fL (81-99); Mean Platelet Vol. 10.2 fl (6.2-12.0); Monocyte# 1.06 X10^3/uL; Monocyte% 7.5 % (0-10); NRBC Flagged by Analyzer 0 % (0-5); Neutrophil # 10.39 X10^3/uL (2.7-7.7); Neutrophil % 74.1 % (47-70); Platelet Count 329 K/mm3 (150-450); RBC Distribution Width CV 12.8 % (11.6-14.6); RBC Distribution Width SD 41.9 fl (35.1-43.9); Red Blood Count 4.77 M/mm3 (4.2-5.4)
[2020-03-20 17:15] LABS: D-Dimer Quantitative (DVT/PE) 0.48 FEU/ug/m (0.27-0.49)
[2020-03-20 17:17] LABS: Anion Gap 3 (5-15); BUN 18 mg/dL (7-18); Calcium,Total 8.7 mg/dL (8.5-10.1); Chloride 107 mmol/L (98-107); Creatinine, Serum 0.95 mg/dL (0.55-1.02); EST Glomerular Filtration Rate 65 mL/min (>60); Est Glom Filt Rate - Afr Amer 78 mL/min (>60); Estimated Creatinine Clearance 56.42 ml/min; Glucose 137 mg/dL (74-106); Magnesium 2.3 mg/dL (1.6-2.6); Potassium 3.8 mmol/L (3.5-5.1); Sodium Level 138 mmol/L (136-145)
[2020-03-20 18:20] VITALS: BP 138/73; PULSE 74; RESP 18; O2SAT 99
== END 2020-03-20 18:22 | disposition home or self-care (01) ==
PROVIDERS: Emergency Provider Emergency Medicine; PCP Family Medicine
DX: R42 Dizziness and giddiness (principal); S06.0X9A Concussion with loss of consciousness of unspecified duration, initial encounter; E03.9 Hypothyroidism, unspecified; X58.XXXA Exposure to other specified factors, initial encounter; Z87.891 Personal history of nicotine dependence
CPT/HCPCS: 71045; 80048; 83735; 84484; 85025; 85379; 93005; 99284; A4216

== ENCOUNTER → 2020-07-19 07:09 | Outpatient (CLI) | payer MEDICAID, SELFPAY ==
--- NOTE | 2020-07-19 07:13 | BI_ITS ---
MAMMOGRAPHY - BILATERAL SCREENING REASON FOR EXAM: Female, 55 years old. Routine annual screening examination. PERTINENT HISTORY: Aunt with breast cancer. TECHNIQUE: Digital bilateral breast alyssia (3D mammographic acquisition) in the CC and MLO projections. 2-D mediolateral oblique (MLO) and craniocaudad (CC) views of both breasts were obtained. CAD: Full Field Digital Mammography with Computer Added Detection was performed. COMPARISON: Comparison is made with prior study dated 06/12/2019 and 11/09/2017. FINDINGS: Breast Composition: There are scattered areas of fibroglandular density. There are no dominant masses or suspicious calcifications. No other significant abnormalities are identified. There has been no significant change since the prior study. BI/SCREEN MAMM (CAD) W/ALYSSIA BILAT IMPRESSION: Stable bilateral screening mammogram. Yearly follow-up mammogram recommended. (A) ASSESSMENT CATEGORY: BIRADS Category 1: Negative. A letter regarding these results will be sent to the patient by the facility within 30 days. Approximately 10% of breast cancers are not detected by mammography. A normal mammogram should not delay biopsy of a clinically suspicious abnormality. [id number] Electronically Signed: Hammad Roberts, at 9:03 EDT , Service support ,
== END ==
PROVIDERS: PCP Family Medicine; Referring Provider Obstetrics & Gynecology; Visit Provider Obstetrics & Gynecology
DX: Z12.31 Encounter for screening mammogram for malignant neoplasm of breast (principal)
CPT/HCPCS: 77063; 77067

== ENCOUNTER → 2020-08-29 13:11 | Outpatient (CLI) | payer MEDICAID, SELFPAY ==
[2020-09-02 13:53] LABS: HPV Reflexed? NOT INDICATED
== END ==
PROVIDERS: PCP Family Medicine; Visit Provider Obstetrics & Gynecology
DX: Z12.4 Encounter for screening for malignant neoplasm of cervix (principal)
CPT/HCPCS: 88175; G0145

== ENCOUNTER → 2020-10-01 10:28 | Outpatient (CLI) | payer MEDICAID, SELFPAY ==
[2020-10-01 12:22] LABS: Erythrocyte Sedimentation Rate 19 mm/hr (0-30)
[2020-10-01 12:58] LABS: Vitamin D,25 Hydroxy 35.1 ng/mL
[2020-10-01 13:05] LABS: Cholesterol 172 mg/dL (200); High Density Lipoprotein 68 mg/dL; T4 Free Direct 1.42 ng/dL (0.76-1.46); Thyroid Stim Hormone (TSH) 2.76 uIU/mL (0.358-3.74); Triglycerides 96 mg/dL; Very Low Density Lipoprotein 19 mg/dL (5-40)
== END ==
PROVIDERS: PCP Family Medicine; Visit Provider Family Medicine
DX: R51.9 Headache, unspecified (principal); E03.9 Hypothyroidism, unspecified; E55.9 Vitamin D deficiency, unspecified; R73.01 Impaired fasting glucose; E78.5 Hyperlipidemia, unspecified
CPT/HCPCS: 36415; 80061; 82306; 83036; 84439; 84443; 85652

== ENCOUNTER 2021-01-06 10:00 | Outpatient (RCR) | payer MEDICAID, SELFPAY ==
[2020-11-25 13:09] VITALS: BMI 42.9
--- NOTE | 2020-12-18 08:26 | HP.OTEVAL_ITS ---
Patient's Visit Information GERMÁN COSBY is a 55 year old F, referred to Occupational Therapy by Dr. Kym Conrad DO, with a diagnosis of left cmc OA. Date of Evaluation: 12/12/20 Occupational Therapist: Polly Reed, CARMINE/Abiel, CHT - Subjective this 55 year old female was seen for OT with dx of left CMC joint arthritis. pt states she has had multipule joint injections but this last injection did not help. The last 6 month has increased with pain and making ADLs and IADls more difficult. Pt states washing dishes, cleaning and meal prep. - Pain left hand 2 Pain Intensity Range: 2, 9 - ROM Wrist: right 75/65 left 75/70 CMC: right 5 left 15 MP: right 45 left 40 IP: right 70 left 60 Radial Abduction: right 45 left 30 - Strength [place]: right 60# left 50# Lateral Pinch: right 16# left 4# Tripod Pinch: right 14# left 4# Strength Comments: pt demo with left thumb instability with resisitance MP hyper-ext. - Sensation Sensation Comments: denies - Quick DASH-Disab of Arm,Shoulder& Hand Quick DASH Score: 34.0900 - Hand/Wrist Evaluation Total Score of Pain & Functional Sections: 84 - Goals Goal:: pt will demo a increase in lateral and tripod pinch by 4# to increase pts ind. with ADls and IADLs by d/c Goal:: pt will report pain no greater than 1.10 with use of supportive bace with ADLs and IADLs by d/c Goal:: Pt will demonstrate understanding of joint protection and adaptive equipment to decrease joint stress while performing ADL tasks by d/c Goal:: pt will report mod.I with use of opening sealed bags with spring scissors to decrease pain and limit jont stress by d/c Goal:: pt will demo IND donning/doffing cmc with MP support brace by d/c Goal:: pt will demo understanding of thumb stabilization HEP and prevention of MP hyper-ext by end of 2nd visit. - Rehabilitation General Assessment: pt demo with positive left CMC grind test- along with left thumb instability with MP hyper-ext with functional grasp of light and heavy objects. pt would benefit from skilled OT services 1-2x week for 6 weeks to ed. pt on joint protection, use of supportive orthosis/brace and ad. eq. for ADls to prevent joint stress. Pt demo understanding and agree to POC. Rehabilitation Potential: Good - Anticipated Interventions Strengthening, Triggerpoint Release, Modalities, Orthoses, Joint Protection/Energy Conservation, Ergonomic Education - Visit Plan Frequency: 1-2x /Week Duration: 6 Weeks TEXT: Thank you for the opportunity to evaluate your patient. For Medicare and Medicare HMO plans, please review the plan of care and approve it. It will need to be FAXED BACK to us at [phone] for Medicare purposes. Please let me know if there are questions or concerns regarding this plan of care. Physician Signature:_ Date:
--- NOTE | 2021-05-12 16:04 | HP.OTDCNRP_ITS ---
GERMÁN COSBY was seen in my office for initial evaluation on 12/12/20. The following Plan of Care was established for this patient: Initial Frequency: 1-2x /Week Initial Duration: 6 Weeks Plan: cont POC Anticipated Interventions: Strengthening, Triggerpoint Release, Modalities, Or thoses, Joint Protection/Energy Conservation, Ergonomic Education This patient was last seen in our office 01/06/21. Pertinent comments regarding their Occupational therapy will appear below: pt has not scheduled further apts and due to time lapse in skilled services pt d/c. At this point I will be discontinuing this patient from occupational therapy. I would be happy to see this patient again in the future if found appropriate by the physician. Thank you! Polly Reed, OTR/L, CHT
== END 2021-01-06 19:00 | disposition home or self-care (01) ==
LOC: OT 10:00
PROVIDERS: PCP Family Medicine; Referring Provider Orthopaedic Surgery; Visit Provider Orthopaedic Surgery
DX: M19.042 Primary osteoarthritis, left hand (principal)
CPT/HCPCS: 97035; 97110; 97140; 97166; 97530

== ENCOUNTER → 2021-02-03 11:46 | Outpatient (CLI) | payer MEDICAID, SELFPAY ==
[2021-02-03 13:15] LABS: Hemoglobin A1c 5.9 % (3.8-5.6)
[2021-02-03 13:23] LABS: Erythrocyte Sedimentation Rate 20 mm/hr (0-30)
[2021-02-03 13:40] LABS: Rheumatoid Factor < 10.0 IU/mL (<15); Thyroid Stim Hormone (TSH) 1.31 uIU/mL (0.358-3.74)
[2021-02-05 08:51] LABS: CCP IgG Antibodies 5 units (0-19)
== END ==
PROVIDERS: PCP Family Medicine; Visit Provider Family Medicine
DX: M06.9 Rheumatoid arthritis, unspecified (principal); E03.9 Hypothyroidism, unspecified; R73.03 Prediabetes
CPT/HCPCS: 36415; 83036; 84443; 85652; 86140; 86200; 86431

== ENCOUNTER → 2021-04-22 12:14 | Outpatient (CLI) | payer MEDICAID, SELFPAY ==
--- NOTE | 2021-04-22 12:20 | RAD_ITS ---
STUDY: X-RAY - SACROILIAC JOINTS REASON FOR EXAM: Female, 56 years old. Joint pain. TECHNIQUE: 3 view(s) of the sacroiliac joints were obtained. COMPARISON: None. FINDINGS: Mild arthrosis of the symphysis pubis. Osteitis pubis. Normal visualized sacral ala and sacrum. Normal visualized iliac bones. Normal visualized soft tissue structures. RAD/S-I Jts 3 or More Views IMPRESSION: Mild arthrosis of the sacroiliac joints. Osteitis pubis. No acute abnormality, evidence of erosions or fusion. Electronically Signed: Alen Mandel MD at 14:02 EDT , Service support ,
--- NOTE | 2021-04-22 12:20 | RAD_ITS ---
STUDY: X-RAY - LUMBAR SPINE REASON FOR EXAM: Female, 56 years old. Joint pain. TECHNIQUE: 2 view(s) of the lumbar spine were obtained. COMPARISON: None FINDINGS: Mild osteopenia. Normal lumbar lordosis. Mild positional dextroscoliosis. There is a normal alignment of the vertebrae. Normal vertebral bodies and endplates. Mild diffuse facet sclerosis. Intervertebral disc space narrowing at L5-S1. The soft tissue structures are unremarkable. RAD/Lumbar Spine 2 or 3 Views IMPRESSION: Osteopenia with mild lumbar spondylosis, most marked at L5-S1. Electronically Signed: Alen Mandel MD at 14:05 EDT , Service support ,
--- NOTE | 2021-04-22 12:21 | RAD_ITS ---
STUDY: X-RAY - LEFT HAND REASON FOR EXAM: Female, 56 years old. Joint pain. TECHNIQUE: 3 view(s) of the hand. COMPARISON: None. FINDINGS: Osteopenia. Mild arthrosis of the radiocarpal articulation Mild arthrosis of the radial carpal row. Mild arthrosis of the first CMC joint. Mild arthrosis of the MCP and IP joints. The soft tissue structures are unremarkable. RAD/Hand Min 3 Views IMPRESSION: Osteopenia with mild osteoarthritic changes as described. No acute abnormality, erosive changes or periostitis. Electronically Signed: Alen Mandel MD at 13:59 EDT , Service support ,
--- NOTE | 2021-04-22 12:21 | RAD_ITS ---
STUDY: X-RAY - RIGHT HAND REASON FOR EXAM: Female, 56 years old. Joint pain. TECHNIQUE: 3 view(s) of the hand. COMPARISON: None. FINDINGS: Osteopenia. Mild arthrosis of the radiocarpal articulation Mild arthrosis of the radial carpal row. Mild arthrosis of the first CMC joint. Mild arthrosis of the MCP and IP joints. The soft tissue structures are unremarkable. RAD/Hand Min 3 Views IMPRESSION: Osteopenia with mild osteoarthritic changes as described. No acute abnormality, erosive changes or periostitis. Electronically Signed: Alen Mandel MD at 14:01 EDT , Service support ,
--- NOTE | 2021-04-22 12:22 | RAD_ITS ---
STUDY: X-RAY - RIGHT FOOT CLINICAL: Female, 56 years old. Joint pain. TECHNIQUE: 3 view(s) of the foot. COMPARISON: 01/29/2017. FINDINGS: Osteopenia. Mild arthrosis of the tibiotalar and subtalar joints unaltered. Postsurgical changes of fusion at the first, second and third tarsometatarsal joints, unchanged. No complicating features. Moderate arthrosis of the MTP and IP joints. The soft tissue structures are unremarkable. RAD/Foot min 3 Views IMPRESSION: Stable osteopenia, osteoarthritic changes and postsurgical changes at the first, second and third TMT joints. No erosive changes, acute abnormality or evidence of fusion. Electronically Signed: Alen Mandel MD at 14:04 EDT , Service support ,
--- NOTE | 2021-04-22 12:22 | RAD_ITS ---
STUDY: X-RAY - LEFT FOOT CLINICAL: Female, 56 years old. Joint pain. TECHNIQUE: 3 view(s) of the foot. COMPARISON: 06/17/2018. FINDINGS: Mild osteopenia. Mild arthrosis of the tibiotalar joint and subtalar joint unchanged. Postsurgical changes at the second and third tarsometatarsal joints with malleable plate and screw fixation, unchanged. The 2 proximal screws have withdrawn slightly. Stable mild arthrosis of the MTP and IP joints. The soft tissue structures are unremarkable. RAD/Foot min 3 Views IMPRESSION: Stable osteopenia. Mild osteoarthritic changes unaltered. Plate and screw fixation with slight retraction of the 2 most superior screws of the plate and screw fixation at the second and third tarsometatarsal articulations.. Electronically Signed: Alen Mandel MD at 13:59 EDT , Service support ,
== END ==
PROVIDERS: PCP Family Medicine; Referring Provider Internal Medicine; Visit Provider Internal Medicine
DX: M25.50 Pain in unspecified joint (principal)
CPT/HCPCS: 72100; 72202; 73130; 73630

== ENCOUNTER → 2021-05-02 15:27 | Outpatient (CLI) | payer MEDICAID, SELFPAY ==
[2021-05-02 17:49] LABS: Absolute Lymphocyte Count 1.87 X10^3/uL (0.83-4.51); Absolute Neutrophil Count 8.3 X10^3/uL (2.0-7.7); Basophil# 0.04 X10^3/uL; Basophil% 0.4 % (0-1); Eosinophil# 0.03 X10^3/uL; Eosinophils% 0.3 % (0-5); Hematocrit 43.2 % (37-47); Hemoglobin 13.9 g/dL (12.0-15.0); Lymphocyte # 1.87 X10^3/ul (0.83-4.51); Lymphocyte % 16.8 % (19-41); Mean Corp Hgb Conc 32.2 g/dL (32-36); Mean Corpuscular Hgb 28.8 pg (27.0-32.0); Mean Corpuscular Volume 89.6 fL (81-99); Mean Platelet Vol. 10.8 fl (6.2-12.0); Monocyte# 0.78 X10^3/uL; NRBC Flagged by Analyzer 0 % (0-5); Neutrophil # 8.34 X10^3/uL (2.7-7.7); Platelet Count 324 K/mm3 (150-450); RBC Distribution Width CV 13.6 % (11.6-14.6); RBC Distribution Width SD 44.7 fl (35.1-43.9); Red Blood Count 4.82 M/mm3 (4.2-5.4); White Blood Count 11.1 K/mm3 (4.4-11.0)
[2021-05-02 18:02] LABS: AST(SGOT) 15 U/L (15-37); Alanine Aminotransfer ALT/SGPT 41 U/L (13-56); Albumin, Serum 3.8 g/dL (3.2-5.0); Alkaline Phosphatase 110 U/L (45-117); Anion Gap 7 (5-15); BUN 19 mg/dL (7-18); BUN/Creat Ratio 19.6 RATIO (10-20); CRP < 2.90 mg/L (0.0-3.0); Calcium,Total 9.6 mg/dL (8.5-10.1); Chloride 103 mmol/L (98-107); Creatinine, Serum 0.97 mg/dL (0.55-1.02); EST Glomerular Filtration Rate 63 mL/min (>60); Est Glom Filt Rate - Afr Amer 76 mL/min (>60); Glucose 132 mg/dL (74-106); Potassium 3.9 mmol/L (3.5-5.1); Protein, Total 7.8 g/dL (6.4-8.2); Sodium Level 139 mmol/L (136-145)
[2021-05-02 18:07] LABS: Erythrocyte Sedimentation Rate 11 mm/hr (0-30)
[2021-05-05 09:24] LABS: Hepatitis B Surface Antibody Non-Reactive; Hepatitis B Surface Antigen Non-Reactive (Nonreactive); Hepatitis C Antibody Non-Reactive (Nonreactive); Vitamin D,25 Hydroxy 59.1 ng/mL
[2021-05-08 03:07] LABS: QNTFERON TB Mitogen Value > 10.00 IU/mL (.); QNTFERON TB Nil Value 0 IU/mL (.); QNTFERON TB1+ Ag Value 0.03 IU/mL (.); QNTFERON TB2+ Ag Value 0.02 IU/mL (.)
[2021-05-08 12:28] LABS: Hepatitis B Core AB IgM Negative (Negative); QNTIFERON TB Positive Criteria Negative (Negative)
== END ==
PROVIDERS: PCP Family Medicine; Referring Provider Internal Medicine; Visit Provider Internal Medicine
DX: M25.50 Pain in unspecified joint (principal)
CPT/HCPCS: 36415; 80053; 82306; 85025; 85652; 86140; 86480; 86705; 86706; 86803; 87340

== ENCOUNTER 2021-10-14 17:47 | Outpatient (CLI) | payer MEDICAID, SELFPAY | END 2021-10-14 23:59 | disposition short-term general hospital (02) | PROVIDERS: PCP Family Medicine; Referring Provider Family Medicine; Visit Provider Family Medicine | DX: Z20.822 Contact with and (suspected) exposure to COVID-19 (principal) | CPT/HCPCS: 87635; U0003; U0005 ==

== ENCOUNTER 2022-01-18 06:11 | Emergency (ER) | payer MEDICAID, SELFPAY ==
[2022-01-18 06:12] VITALS: BP 187/77; PULSE 90; RESP 18; TEMP 36.4; O2SAT 98; BMI 40.8
--- NOTE | 2022-01-18 06:31 | EDS_ITS ---
HPI History of Present Illness Chief Complaint: Back Narrative Narrative: -year-old female presenting with right lower back pain radiating to the right gluteal region. Patient states initially yesterday she had a slight twinge in this area and felt like there was some spasm. She states she picked up her granddaughter and felt an immediate tightness after that. She denies any direct trauma. The pain radiates down the right gluteal region down the back of the leg. Patient states the pain is worse with laying and sitting and better with standing. It is painful to extend her leg straight. She denies numbness. No loss of bladder or bowel control. No saddle anesthesia. [facility] Medical History Arthritis Cervical cancer Fibromyalgia GERD (gastroesophageal reflux disease) Graves disease Hx LEEP (loop electrosurgical excision procedure), cervix, Hypertension IBS (irritable bowel syndrome) Knee pain neck/back pain Spinal stenosis Whiplash Home Medications amlodipine 10 mg PO QHS 02/05/16 [History Last Taken 02/05/16] lisinopril 20 mg PO DAILY 01/22/17 [History Last Taken 06/17/18 05:30 20 MG] simvastatin 20 mg PO QHS 01/22/17 [History Last Taken Unknown] tramadol 50 mg PO BID 01/22/17 [History Last Taken Unknown] cyclobenzaprine 10 mg tablet 10 mg PO QHS PRN PRN 10/12/17 [History Last Taken Unknown] cholecalciferol (vitamin D3) 2,000 unit PO DAILY 03/15/18 [History Last Taken Unknown] meloxicam 7.5 mg PO DAILY 03/20/20 [History Last Taken Unknown] hydrochlorothiazide 12.5 mg tablet 12.5 ea PO DAILY 11/25/20 [History Last Taken Unknown] levothyroxine 75 mcg tablet 75 ea PO DAILY 11/25/20 [History Last Taken Unknown] prednisone 50 mg PO QODAY #4 tab 01/18/22 [Rx Last Taken Unknown] tizanidine [Zanaflex] 4 mg PO QHS PRN #14 tab 01/18/22 [Rx Last Taken Unknown] Allergy/AdvReac Type Severity Reaction Status Date / Time hydroxychloroquine Allergy Mild Rash Verified 01/18/22 06:15 [From Plaquenil] amitriptyline Allergy Fluttering, Verified 01/18/22 06:15 nervousness gabapentin AdvReac Mild sedation, Verified 01/18/22 06:15 loopy, forgetfulness THYROID MEDICATION Allergy Mild Rash Uncoded 01/18/22 06:15 Family History Mother Diabetes Hypertension Grandmother Rheumatoid arthritis Heart disease Father Hypertension Grandfather Heart disease Surgical History bladder lift H/O dilation and curettage H/O LEEP History of foot surgery History of placement of ear tubes History of tonsillectomy History of tonsillectomy rectal reconstruction Status post right foot surgery Social History household members: spouse housing: house Smoking Status: Former smoker quit date: 11/19/07 Tobacco: How many years used: 25 alcohol intake: never substance use type: does not use what type of physical activity do you participate in: walking frequency: 3-4 times per week do you feel safe at home: Yes ROS ROS ED Constitutional Constitutional ED: Denies chills or fever(s) Eyes Eyes: Denies blurry vision or diplopia ENT ENT ED: Denies rhinorrhea or sore throat Cardiovascular Cardiovascular: Denies chest pain or palpitations Respiratory/Chest Respiratory/Chest: Denies dyspnea or sputum Gastrointestinal Gastrointestinal: Denies abdominal pain, nausea or vomiting Genitourinary Genitourinary ED: Denies dysuria or hematuria Musculoskeletal Musculoskeletal: Reports back pain and other Details: Right back pain and right gluteal pain ; Denies arthralgias or myalgias Integumentary Denies rash Neurologic Neurologic: Denies headache(s) or weakness Psychiatric Psychiatric: Denies anxiety or depression EXAM Physical Exam Const Vital Signs: 01/18/22 06:12 Temperature 97.5 F L Temperature Source Temporal Pulse Rate 90 Respiratory Rate 18 Blood Pressure 187/77 H Blood Pressure Mean 113 Pulse Ox 98 Oxygen Delivery Method Room Air Positive well nourished General Appearance ED: NAD; Negative for pallor HEENT Reports moist mucous membranes Negative for trauma Eyes PERRL and EOMs intact bilaterally Resp normal respiratory effort Cardio regular rate and regular rhythm Back/Spine Back/Spine Narrative: No midline spinal tenderness, deformity, step-off of the lumbar thoracic spine. There is tenderness in the right lumbar paraspinal musculature and extending into the right gluteal region. Patient does not want to sit and stands for examination. I am unable able to check a straight leg raise. Extremity Negative for no clubbing, cyanosis or edema General Extremety ED: Negative for edema General Extremity: Negative for edema Neuro oriented x3 Sensorium / Orientation: alert Psych mental status grossly normal Skin no rashes or lesions noted and no wounds General Skin Exam: Negative for jaundice or pallor MDM MDM MDM Narrative Medical decision making narrative: Patient's onset of symptoms with a twinge as well as the right lumbar paraspinal musculature is likely more of a lumbar radiculopathy but it does have some components of a sciatic pain. Patient is given a shot of Norflex and Toradol in the ED. She was given 60 mg of prednisone as well. On reevaluation at 7 AM the patient states her pain is down to a 6 and is tolerable. She is able to bend at the waist currently. Patient's home cyclobenzaprine will be changed to Zanaflex and she will be given a prednisone burst for home. She does have tramadol and I counseled her she should not take this at the same time as Zanaflex but can alternate them. She is to continue to use ice over the area of concern and stretching exercises were discussed. Impression: 1. Right lumbar radiculopathy 2. Right gluteal pain Discharge Plan Triage Chief Complaint: Back ED Provider: Marcin Connor Dx/Rx/DC Orders Instructions: Understanding Lumbar Radiculopathy, ED Sciatica Prescriptions: New tizanidine [Zanaflex] 4 mg tablet 4 mg PO QHS PRN (Reason: muscle spasticity) Qty: 14 RF: 0 prednisone 50 mg tablet 50 mg PO QODAY Qty: 4 RF: 0 No Action cyclobenzaprine 10 mg tablet 10 mg PO QHS PRN PRN (Reason: muscle relaxer) RF: 0 levothyroxine 75 mcg tablet 75 ea PO DAILY RF: 0 hydrochlorothiazide 12.5 mg tablet 12.5 ea PO DAILY RF: 0 amlodipine 10 MG tablet 10 mg PO QHS RF: 0 lisinopril 20 MG tablet 20 mg PO DAILY RF: 0 tramadol 50 MG tablet 50 mg PO BID RF: 0 simvastatin 20 MG tablet 20 mg PO QHS RF: 0 cholecalciferol (vitamin D3) 2,000 UNIT capsule 2,000 unit PO DAILY RF: 0 meloxicam 7.5 MG tablet 7.5 mg PO DAILY RF: 0 Primary Care Provider: Silverio Landry Referrals: Silverio Landry DO [Primary Care Provider] -
[2022-01-18] MEDS: Orphenadrine 60 MG/2 ML Ampul IM (06:44)
[2022-01-18] MEDS: Ketorolac 15 MG/ML Vial IM (06:44)
[2022-01-18] MEDS: predniSONE 20 MG Tablet 60 MG PO (06:44)
[2022-01-18 07:15] VITALS: BP 123/87; PULSE 83; RESP 16; O2SAT 98
== END 2022-01-18 07:16 | disposition home or self-care (01) ==
LOC: ED 06:48
PROVIDERS: Emergency Provider Student in an Organized Health Care Education/Training Program; PCP Family Medicine; Visit Provider Student in an Organized Health Care Education/Training Program
DX: M54.16 Radiculopathy, lumbar region (principal); I10 Essential (primary) hypertension; M79.7 Fibromyalgia; Z87.891 Personal history of nicotine dependence; Z79.899 Other long term (current) drug therapy
CPT/HCPCS: 96372; 99282

== ENCOUNTER → 2022-02-09 | Outpatient (CLI) | payer MEDICAID, SELFPAY ==
[2022-02-09 15:44] LABS: BUN 19 mg/dL (7-18); Creatinine, Serum 0.86 mg/dL (0.55-1.02); EST Glomerular Filtration Rate 72 mL/min (>60); Glucose 95 mg/dL (74-106)
[2022-02-09 15:45] LABS: Anion Gap 7 (5-15); Calcium,Total 9.6 mg/dL (8.5-10.1); Chloride 107 mmol/L (98-107); Est Glom Filt Rate - Afr Amer 87 mL/min (>60); Potassium 3.8 mmol/L (3.5-5.1); Sodium Level 140 mmol/L (136-145)
== END | disposition home or self-care (01) ==
PROVIDERS: PCP Family Medicine; Referring Provider Family Medicine; Visit Provider Family Medicine
DX: E87.6 Hypokalemia (principal)
CPT/HCPCS: 36415; 80048

== ENCOUNTER → 2022-03-08 | Outpatient (CLI) | payer MEDICAID, SELFPAY ==
[2022-03-08 15:08] LABS: Bacteria 0 SEEN /hpf (None Seen); Mucous, Urine 0 SEEN /hpf (<or=2+); Red Blood Cells-Urine 0 SEEN /hpf (0-5); Squamous Epithelial Cells - UA 0 SEEN /hpf (5-10); White Blood Cells 0 SEEN /hpf (0-5)
[2022-03-08 15:20] LABS: Color, Urine Yellow (Yellow); Glucose, Dipstick Normal (Normal); Ketone-Dipstick Negative (Negative); Leukocyte Esterase-Dipstick Negative /ul (Negative); Nitrite-Dipstick Negative (Negative); Occult Blood-Urine Negative /ul (Negative); Protein-Dipstick Negative (Negative); Urine Bilirubin Dipstick Negative (Negative); Urine Clarity Clear (Clear); Urine Urobilinogen Normal (Normal)
== END | disposition home or self-care (01) ==
PROVIDERS: PCP Family Medicine; Referring Provider Physician Assistant; Visit Provider Physician Assistant
DX: N39.0 Urinary tract infection, site not specified (principal)
CPT/HCPCS: 81001; 87086

== ENCOUNTER → 2022-04-10 | Outpatient (CLI) | payer MEDICAID, SELFPAY ==
[2022-04-10 10:13] LABS: Absolute Lymphocyte Count 1.98 X10^3/uL (0.83-4.51); Absolute Neutrophil Count 5.2 X10^3/uL (2.0-7.7); Basophil# 0.07 X10^3/uL; Basophil% 0.9 % (0-1); Eosinophil# 0.15 X10^3/uL; Eosinophils% 1.9 % (0-5); Hematocrit 38.7 % (37-47); Hemoglobin 12.7 g/dL (12.0-15.0); Lymphocyte # 1.98 X10^3/ul (0.83-4.51); Lymphocyte % 24.7 % (19-41); Mean Corp Hgb Conc 32.8 g/dL (32-36); Mean Corpuscular Volume 91.5 fL (81-99); Mean Platelet Vol. 10.6 fl (6.2-12.0); Monocyte# 0.59 X10^3/uL; Monocyte% 7.4 % (0-10); NRBC Flagged by Analyzer 0 % (0-5); Neutrophil # 5.21 X10^3/uL (2.7-7.7); Neutrophil % 64.9 % (47-70); Platelet Count 295 K/mm3 (150-450); RBC Distribution Width CV 14.1 % (11.6-14.6); RBC Distribution Width SD 47.1 fl (35.1-43.9); Red Blood Count 4.23 M/mm3 (4.2-5.4)
[2022-04-10 11:00] LABS: Ferritin 270 ng/mL (8-252); Iron 71 ug/dL (50-170); Thyroid Stim Hormone (TSH) 1.37 uIU/mL (0.358-3.74)
== END | disposition home or self-care (01) ==
LOC: LAB 09:14
PROVIDERS: PCP Family Medicine; Referring Provider Family Medicine; Visit Provider Family Medicine
DX: D64.9 Anemia, unspecified (principal); E03.9 Hypothyroidism, unspecified
CPT/HCPCS: 36415; 82728; 83540; 84443; 85025

== ENCOUNTER → 2022-06-09 | Outpatient (CLI) | payer MEDICAID, SELFPAY ==
[2022-06-17 10:58] LABS: HPV APTIMA, High Risk Negative (Negative)
== END | disposition home or self-care (01) ==
LOC: LABSPEC 12:16
PROVIDERS: PCP Family Medicine; Visit Provider Obstetrics & Gynecology
DX: Z12.4 Encounter for screening for malignant neoplasm of cervix (principal)
CPT/HCPCS: 87624; 88175; G0145

== ENCOUNTER 2022-06-25 12:00 | Outpatient (RCR) | payer MEDICAID, SELFPAY ==
--- NOTE | 2022-03-30 16:25 | HP.PTEVAL ---
Patient's Visit Information GERMÁN COSBY is a 57 year old F referred to Physical Therapy by Dr. Leanne Calhoun MD with a diagnosis of BACK PAIN. Date of Evaluation: 03/30/22 Physical Therapist: Jaime Pulliam, PT, Cert MDT, OCS - Visit Plan Frequency: 2x /Week Duration: 4 Weeks Plan: PT INTERVENTIONS GORAN EX'S ,DLS ,POSTURAL EX'S MODALTIES ,AND ACTIVITY MODIFICATION - Subjective this 57 y/o female presents physical therapy with back pain . Patient back pain right lumbar buttock . Patient has had symptoms for ~ 2 years but symptoms progressively worse 4weeks. Patient noticed pain picking up granddaughter. Patient next day went to ER provided with flexural. Seen DR Patino with epidural injection which ~ 1 month. Had follow up with DR Ballard. Aggravating factors walking ,bending ,lifting. Alleviating epidural rest. Coughing/sneezing -. Denies paraphasia/tingling. Patient bowel/bladder -. Patient sleeping okay now. Patient daily task with sweeping . Patient pain affects QOL and housework tasks. Patient needs PT possible MRI. SOCIAL: . VOCATION: disability - Pain Right Back Pain Intensity (Out of 10): 3 Pain Intensity Range: 10 - Objective POSTURE: mild forward posture. GAIT: reciprocal pattern. NEURO: denies paresthesia/tingling ,reflexes L3-4,L4 -L5 ,L5 S1 1/3. PALAPTION: unremarkable. AROM LUMBAR: flexion WFL ,extension WFL, side glides min loss. MMT: quads/hams/hip 4/5 ,ankle 5/5 - Special Tests L/S Slump test left side: Negative L/S Slump test right side: Negative L/S Left Straight Leg Raise: Negative L/S Right Straight Leg Raise: Negative Lumbar Standing: Flexion - Mechanical Response: No effect Lumbar Standing: Flexion - Symptoms During Testing: Increases Lumbar Standing: Flexion - Symptoms After Testing: No worse Lumbar Standing: Extension - Mechanical Response: No effect Lumbar Standing: Extension - Symptoms During Testing: Decreases Lumbar Standing: Extension - Symptoms After Testing: No better Lumbar Standing: Right Side Glides - Mechanical Response: No effect Lumbar Standing: Right Side Roscoe - Symptoms During Testing: No effect Lumbar Standing: Right Side [place]coe - Symptoms After Testing: No effect Lumbar Standing: Left Side Roscoe - Mechanical Response: No effect Lumbar Standing: Left Side [place]coe - Symptoms During Testing: No effect Lumbar Standing: Left Side [place]coe - Symptoms After Testing: No effect Lumbar Lying: Flexion - Mechanical Response: No effect Lumbar Lying: Flexion - Symptoms During Testing: No effect Lumbar Lying: Flexion - Symptoms After Testing: No effect Lumbar Lying: Extension - Mechanical Response: No effect Lumbar Lying: Extension - Symptoms During Testing: Decreases Lumbar Lying: Extension - Symptoms After Testing: Better - Balance/Special Test Scores Oswestry Low Back Score: 30 - Goals Goal 1:: Patient to be I with HEP for lumbar Goal Time Frame: 4-6 Weeks Goal 2:: Patient to improve to improve posture/body mechanics by 80% for propalxis. Goal Time Frame: 4-6 Weeks Goal 3:: Patient to improve lumbar ROM for function of recovery to lift grand childern Goal Time Frame: 4-6 Weeks Goal 4:: Patient to demonstrate 50% improvement with decrease pain to improve function and ADLS' Goal Time Frame: 4-6 Weeks Goal 5:: Patient to improve lumbar oswestry score 5 points to improve function and QOL Goal Time Frame: 4-6 Weeks - Rehabilitation Potential Physical Therapy Diagnosis: This patient has possible lumbar derangement above knee with symptoms result of lifting and in general worse with bending and sitting better with extension and correction posture thus benefit from skilled PT Rehabilitation Potential: Good - Anticipated Interventions Patient/Client Instruction: Educate patient on: Condition, Plan of Care For the Purpose of:: To decrease pain, To increase ROM, To improve muscle performance and motor function, To improve ability to perform ADL's, To increase tolerance to activity/condition/position, To improve ability of physical actions for home/community/work/leisure, To improve health of tissue, To decrease soft tissue restriction, To increase flexibility/ROM, To prevent re-injury, To improve tolerance to ADL's Therapeutic Exercise to Include: Strength training, Body mechanics, Postural training, Flexibilty training, Dynamic Lumbar Stabilization, Goran Exercises For the Purpose of:: To decrease pain, To increase ROM, To improve muscle performance and motor function, To improve ability to perform ADL's, To increase tolerance to activity/condition/position, To improve ability of physical actions for home/community/work/leisure, To improve health of tissue, To decrease soft tissue restriction, To prevent re-injury TENS: Yes IF ES: Yes Cryotherapy (ice pack, ice massage): Yes Thermo therapy (hot pack): Yes Ultrasound (thermal/non thermal): Yes For the Purpose of:: To decrease pain, To decrease swelling/inflammation, To improve nutrient delivery to tissue, To increase oxygenation perfusion, To improve health of tissue, To decrease soft tissue restriction Thank you for the opportunity to evaluate your patient. For Medicare and Medicare HMO plans, please review the plan of care and approve it. It will need to be FAXED BACK to us at [phone] for Medicare purposes. For Medicare only, by signing this I certify the plan of care. Please let me know if there are questions or concerns regarding this plan of care. Physician Signature: Date:
--- NOTE | 2022-09-08 10:29 | HP.PT.NRP ---
GERMÁN COSBY was seen in my office for initial evaluation on 03/30/22. The following Plan of Care was established for this patient: Initial Frequency: 2x /Week Initial Duration: 4 Weeks Patient/Client Instruction: Educate patient on: Condition, Plan of Care For the Purpose of:: To decrease pain, To increase ROM, To improve muscle performance and motor function, To improve ability to perform ADL's, To increase tolerance to activity/condition/position, To improve ability of physical actions for home/community/work/leisure, To improve health of tissue, To decrease soft tissue restriction, To increase flexibility/ROM, To prevent re-injury, To improve tolerance to ADL's Therapeutic Exercise to Include: Strength training, Body mechanics, Postural training, Flexibilty training, Dynamic Lumbar Stabilization, Janice Exercises For the Purpose of:: To decrease pain, To increase ROM, To improve muscle performance and motor function, To improve ability to perform ADL's, To increase tolerance to activity/condition/position, To improve ability of physical actions for home/community/work/leisure, To improve health of tissue, To decrease soft tissue restriction, To prevent re-injury TENS: Yes IF ES: Yes Cryotherapy (ice pack, ice massage): Yes Thermo therapy (hot pack): Yes Ultrasound (thermal/non thermal): Yes For the Purpose of:: To decrease pain, To decrease swelling/inflammation, To improve nutrient delivery to tissue, To increase oxygenation perfusion, To improve health of tissue, To decrease soft tissue restriction This patient was last seen in our office . Pertinent comments regarding their Physical therapy will appear below: Patient was seen for PT for back pain and HEP strengthening ,DLS and posture doing well thus d/c At this point I will be discontinuing this patient from physical therapy. I would be happy to see this patient again in the future if found appropriate by the physician. Thank you! Jaime Pulliam, PT, Cert MDT, OCS Balance/Gait/Functional tests - Balance/Special Test Scores Oswestry Low Back Score: 3
== END 2022-06-25 19:00 | disposition home or self-care (01) ==
LOC: PT 12:00
PROVIDERS: PCP Family Medicine; Referring Provider Anesthesiology Pain Medicine; Visit Provider Anesthesiology Pain Medicine
DX: M54.9 Dorsalgia, unspecified (principal)
CPT/HCPCS: 97110; 97162; 97530

== ENCOUNTER → 2022-07-13 | Outpatient (CLI) | payer MEDICAID, SELFPAY ==
[2022-07-13 17:47] LABS: Absolute Lymphocyte Count 1.64 X10^3/uL (0.83-4.51); Absolute Neutrophil Count 6.7 X10^3/uL (2.0-7.7); Basophil# 0.06 X10^3/uL; Basophil% 0.6 % (0-1); Eosinophil# 0.09 X10^3/uL; Hematocrit 40.3 % (37-47); Hemoglobin 13.1 g/dL (12.0-15.0); Lymphocyte # 1.64 X10^3/ul (0.83-4.51); Lymphocyte % 17.7 % (19-41); Mean Corp Hgb Conc 32.5 g/dL (32-36); Mean Corpuscular Hgb 29.8 pg (27.0-32.0); Mean Corpuscular Volume 91.8 fL (81-99); Mean Platelet Vol. 11.2 fl (6.2-12.0); Monocyte# 0.74 X10^3/uL; NRBC Flagged by Analyzer 0 % (0-5); Neutrophil % 72.5 % (47-70); Platelet Count 333 K/mm3 (150-450); RBC Distribution Width CV 13.7 % (11.6-14.6); RBC Distribution Width SD 46.5 fl (35.1-43.9); Red Blood Count 4.39 M/mm3 (4.2-5.4); White Blood Count 9.3 K/mm3 (4.4-11.0)
[2022-07-13 18:05] LABS: Thyroid Stim Hormone (TSH) 0.62 uIU/mL (0.358-3.74)
[2022-07-13 18:19] LABS: Hemoglobin A1c 5.4 % (3.8-5.6)
== END | disposition home or self-care (01) ==
LOC: BFHLAB 14:42
PROVIDERS: PCP Family Medicine; Visit Provider Family Medicine
DX: I10 Essential (primary) hypertension (principal); E03.9 Hypothyroidism, unspecified; R23.3 Spontaneous ecchymoses
CPT/HCPCS: 36415; 83036; 84443; 85025

== ENCOUNTER → 2022-08-25 | Outpatient (CLI) | payer MEDICAID, SELFPAY ==
--- NOTE | 2022-08-25 15:03 | BI_ITS ---
MAMMOGRAPHY - BILATERAL SCREENING REASON FOR EXAM: Female, 57 years old. Routine annual screening examination. PERTINENT HISTORY: Aunt with breast cancer. TECHNIQUE: Digital bilateral breast alyssia (3D mammographic acquisition) in the CC and MLO projections. 2-D mediolateral oblique (MLO) and craniocaudad (CC) views of both breasts were obtained. CAD: Full Field Digital Mammography with Computer Added Detection was performed. COMPARISON: Comparison is made with prior study dated 07/19/2020 and 06/12/2019. FINDINGS: Breast Composition: There are scattered areas of fibroglandular density. There are no dominant masses or suspicious calcifications. No other significant abnormalities are identified. There has been no significant change since the prior study. BI/SCRN MAMM (CAD)W/ALYSSIA BILAT IMPRESSION: Stable bilateral screening mammogram. Yearly follow-up mammogram recommended. (A) ASSESSMENT CATEGORY: BIRADS Category 1: Negative. A letter regarding these results will be sent to the patient by the facility within 30 days. Approximately 10% of breast cancers are not detected by mammography. A normal mammogram should not delay biopsy of a clinically suspicious abnormality. [id number] Electronically Signed: Hammad Roberts MD at 8:36 EST ,
== END | disposition home or self-care (01) ==
LOC: OPBI 15:01
PROVIDERS: PCP Family Medicine; Referring Provider Obstetrics & Gynecology; Visit Provider Obstetrics & Gynecology
DX: Z12.31 Encounter for screening mammogram for malignant neoplasm of breast (principal); Z80.3 Family history of malignant neoplasm of breast
CPT/HCPCS: 77063; 77067

== ENCOUNTER → 2022-10-15 | Outpatient (CLI) | payer MEDICAID, SELFPAY ==
--- NOTE | 2022-10-15 11:49 | US_ITS ---
STUDY: THYROID ULTRASOUND REASON FOR EXAM: Female, 57 years old. Abnormal thyroid function tests TECHNIQUE: Ultrasound evaluation of the thyroid was performed with real-time and static nicole-scale imaging. COMPARISON: 10/03/2018 FINDINGS: RIGHT LOBE: The right lobe of the thyroid gland measures 3.8 x 1.2 x 1.5 cm. There is a homogeneous echotexture. Stable 1.4 cm complex cyst in the lower pole LEFT LOBE: The left lobe of the thyroid gland measures 3.9 x 1.4 x 1.3 cm. There is a homogeneous echotexture. 3 separate stable solid/cystic nodules all measuring up to 0.8 cm and are unchanged. ISTHMUS: The isthmus measures 2 mm. The regional lymph nodes are normal. US/Thyroid IMPRESSION: Stable homogeneous thyroid with bilateral heterogeneous solid and cystic nodules, no interval change since the previous study Electronically Signed: Aj Campo MD at 13:50 EST ,
== END | disposition home or self-care (01) ==
PROVIDERS: PCP Family Medicine; Referring Provider Family Medicine; Visit Provider Family Medicine
DX: E04.2 Nontoxic multinodular goiter (principal)
CPT/HCPCS: 76536

== ENCOUNTER → 2023-08-24 | Outpatient (CLI) | payer MEDICAID, SELFPAY ==
[2023-08-24 15:35] LABS: Bacteria 0 SEEN /hpf (None Seen); Mucous, Urine 0 SEEN /hpf (<or=2+); Red Blood Cells-Urine 0 SEEN /hpf (0-5); Squamous Epithelial Cells - UA 0 SEEN /hpf (5-10); White Blood Cells 0 SEEN /hpf (0-5)
[2023-08-24 17:34] LABS: Color, Urine Yellow (Yellow); Glucose, Dipstick Normal (Normal); Ketone-Dipstick Negative (Negative); Leukocyte Esterase-Dipstick Negative /ul (Negative); Nitrite-Dipstick Negative (Negative); Occult Blood-Urine Negative /ul (Negative); Protein-Dipstick Negative (Negative); Urine Bilirubin Dipstick Negative (Negative); Urine Clarity Clear (Clear); Urine Urobilinogen Normal (Normal)
== END | disposition home or self-care (01) ==
LOC: LABSPEC 15:32
PROVIDERS: PCP Family Medicine; Visit Provider Physician Assistant
DX: R30.0 Dysuria (principal)
CPT/HCPCS: 81001; 87086

== ENCOUNTER → 2023-09-16 | Outpatient (CLI) | payer MEDICAID, SELFPAY ==
[2023-09-16 11:06] LABS: Absolute Lymphocyte Count 1.46 X10^3/uL (0.83-4.51); Absolute Neutrophil Count 5.8 X10^3/uL (2.0-7.7); Basophil# 0.04 X10^3/uL; Basophil% 0.5 % (0-1); Hematocrit 39.6 % (37-47); Hemoglobin 12.8 g/dL (12.0-15.0); Lymphocyte # 1.46 X10^3/ul (0.83-4.51); Lymphocyte % 18.7 % (19-41); Mean Corp Hgb Conc 32.3 g/dL (32-36); Mean Corpuscular Hgb 29.8 pg (27.0-32.0); Mean Corpuscular Volume 92.3 fL (81-99); Mean Platelet Vol. 9.7 fl (6.2-12.0); Monocyte# 0.48 X10^3/uL; Monocyte% 6.1 % (0-10); NRBC Flagged by Analyzer 0 % (0-5); Neutrophil # 5.81 X10^3/uL (2.7-7.7); Neutrophil % 74.3 % (47-70); Platelet Count 283 K/mm3 (150-450); RBC Distribution Width CV 13.6 % (11.6-14.6); RBC Distribution Width SD 45.8 fl (35.1-43.9); Red Blood Count 4.29 M/mm3 (4.2-5.4); White Blood Count 7.8 K/mm3 (4.4-11.0)
[2023-09-16 11:22] LABS: Hemoglobin A1c 4.8 % (3.8-5.6)
[2023-09-16 11:30] LABS: Vitamin D,25 Hydroxy 59.6 ng/mL
[2023-09-16 11:40] LABS: AST(SGOT) 19 U/L (15-37); Alanine Aminotransfer ALT/SGPT 22 U/L (13-56); Albumin, Serum 3.6 g/dL (3.2-5.0); Alkaline Phosphatase 87 U/L (45-117); Anion Gap 7 (5-15); BUN 11 mg/dL (7-18); BUN/Creat Ratio 13.9 RATIO (10-20); Calcium,Total 8.8 mg/dL (8.5-10.1); Chloride 107 mmol/L (98-107); Cholesterol 251 mg/dL (200); Creatinine, Serum 0.79 mg/dL (0.55-1.02); EST Glomerular Filtration Rate 78 mL/min (>60); Est Glom Filt Rate - Afr Amer 95 mL/min (>60); Globulin 3.5 g/dL (2.2-4.2); Glucose 91 mg/dL (74-106); High Density Lipoprotein 71 mg/dL; Protein, Total 7.1 g/dL (6.4-8.2); Sodium Level 140 mmol/L (136-145); T4 Free Direct 1.23 ng/dL (0.76-1.46); Thyroid Stim Hormone (TSH) 2.44 uIU/mL (0.358-3.74); Triglycerides 96 mg/dL; Very Low Density Lipoprotein 19 mg/dL (5-40)
== END | disposition home or self-care (01) ==
LOC: LAB 10:24
PROVIDERS: PCP Family Medicine; Referring Provider Family Medicine; Visit Provider Family Medicine
DX: Z00.00 Encounter for general adult medical examination without abnormal findings (principal); E88.819 Insulin resistance, unspecified; E03.9 Hypothyroidism, unspecified; E55.9 Vitamin D deficiency, unspecified
CPT/HCPCS: 36415; 80053; 80061; 82306; 83036; 84439; 84443; 85025

== ENCOUNTER → 2023-10-14 | Outpatient (CLI) | payer MEDICAID, SELFPAY ==
--- NOTE | 2023-10-14 12:13 | BI_ITS ---
MAMMOGRAPHY - BILATERAL SCREENING REASON FOR EXAM: Female, 58 years old. Routine annual screening examination. PERTINENT HISTORY: Aunt with breast cancer. TECHNIQUE: Digital bilateral breast alyssia (3D mammographic acquisition) in the CC and MLO projections. 2-D mediolateral oblique (MLO) and craniocaudad (CC) views of both breasts were obtained. CAD: Full Field Digital Mammography with Computer Added Detection was performed. COMPARISON: Comparison is made with prior mammogram dated August 25, 2022 and July 19, 2020. FINDINGS: Breast Composition: There are scattered areas of fibroglandular density. There are no dominant masses or suspicious calcifications. No other significant abnormalities are identified. There has been no significant change since the prior study. BI/SCRN MAMM (CAD)W/ALYSSIA BILAT IMPRESSION: Stable bilateral screening mammogram. Yearly follow-up mammogram recommended. (A) ASSESSMENT CATEGORY: BIRADS Category 1: Negative. A letter regarding these results will be sent to the patient by the facility within 30 days. Approximately 10% of breast cancers are not detected by mammography. A normal mammogram should not delay biopsy of a clinically suspicious abnormality. [id number] Electronically Signed: Hammad Roberts MD at 14:10 EST ,
--- OUTSIDE RECORDS SUMMARY | 2023-10-14 12:26 | XMS RPT_ITS | CCD ---
Author Name Unknown Address [address] [place] [address] Organization [facility] Care Team Providers Care Group Exercise Manager Name Role Phone Jero Landry DO A Primary Care Provider WILL, JERO A Primary Care Unavailable KAELYN FISH Attending Unavailable WILL, JERO A Referring Unavailable WILL, JERO A Primary Care Unavailable DIYEN FRIEND Attending Unavailable WILL, JERO A Referring Unavailable WILL, JERO A Primary Care Unavailable YEN ABERNATHY Attending Unavailable WILL, JERO A Primary Care Unavailable IAIN MONSON Attending Unavailabl e CHELITA ABERNATHYWETA Referring Unavailable WILL, JERO A Primary Care Unavailable JOSEMANUEL YEN Referring Unavailable WILL, JERO A Primary Care Unavailable JUDI ABERNATHYTA Attending Unavailable WILL, JERO A Primary Care Unavailable DIWACHELITA CAOWETA Attending Unavailable WILL, JERO A Referring Unavailable WILL, JERO A Primary Care Unavailable WILL, JERO A Primary Care Unavailable KAELYN FISH Attending Unavailable FISH, KAELYN Referring Unavailable WILL, JEOR A Referring Unavailable NADINEWACHELITA CAOWETA Attending Unavailable WILL, JERO A Primary Care Unavailable WILL, JERO A Primary Care Unavailable JUDI ABERNATHYTA Attending Unavailable KYM CONRAD Referring Unavailab le WILL, JERO A Primary Care Unavailable KYM CONRAD Attending Unavailab le WILL, JERO A Primary Care Unavailable WILL, JERO A Primary Care Unavailable POLINA, KAELYN Referring Unavailable VIOLET DIXON Attending Unavailable WILL, JERO A Primary Care Unavailable NGOC CALDWELL Referring Unavailable NGOC CALDWELL Attending Unavailable WILL, JERO A Primary Care Unavailable KYM CONRAD Referring Unavailab le KYM CONRAD Attending Unavailab le WILL, JERO A Primary Care Unavailable MIGUELITO WONG Attending Unavailable WILL, JERO A Primary Care Unavailable KYM CONRAD Attending Unavailab le WILL, JERO A Primary Care Unavailable MIGUELITO WONG Referring Unavailable NOVA DESOUZA Attending Unavailable WILL, JERO A Primary Care Unavailable KYM CONRAD Referring Unavailab le WILL, JERO A Primary Care Unavailable KYM CONRAD Attending Unavailab le WILL, JERO A Primary Care Unavailable NGOC CALDWELL Attending Unavailable WILL, JERO A Primary Care Unavailable NGCO CALDWELL Referring Unavailable WILL, JERO A Primary Care Unavailable Allergies Allergy Classification Reported Allergen(s) Allergy Type Date of Onset Reaction(s) Facility (20 sources) Acetaminophen / HYDROcodone; Translations: [HYDROCODONE-ACETA MINOPHEN] Drug Allergy 5 Itching [facility] Work Phone: (20 sources) Codeine; Translations: [CODEINE] Drug Allergy 5 Vomiting [facility] Work Phone: (20 sources) methIMAzole; Translations: [METHIMAZOLE] Drug Allergy 5 Rash [facility] Work Phone: (20 sources) DULoxetine; Translations: [DULOXETINE] Drug Allergy 6 Other: See Comments [facility] (20 sources) Hydroxychloroquine ; Translations: [HYDROXYCHLOROQUIN E] Drug Allergy 2 Rash [facility] (20 sources) meloxicam; Translations: [MELOXICAM] Drug Allergy 2 Other: See Comments [facility] Medications Current Medications Medication Drug Class(es) Dates Sig (Normalized) Sig (Original) 0.5 ml dulaglutide 3 mg/ml auto-injector (20 sources) GLP-1 Receptor Agonist Start: 03-08-2023 End: 06-09-2023 dulaglutide (TRULICITY) 1.5 mg/0.5 mL pen injector Indications: Body mass index 40.0-44.9, adult (HCC) , Prediabetes , Class 3 severe obesity with serious comorbidity in adult, unspecified BMI, unspecified obesity type (HCC) Inject 1.5 mg subcutaneously one time a week. 2 mL 1 05/10/2023 06/09/2023 Active Completed/Discontinued Medications Medication Drug Class(es) Dates Sig (Normalized) Sig (Original) amLODIPine 10 mg oral tablet (20 sources) Dihydropyridine Calcium Channel Vinod take 1 tablet by mouth once daily amLODIPine (NORVASC) 10 mg tablet Take 10 mg by mouth once daily. 0 Active Problems Active Problems Problem Classification Problem Date Documented Date Episodic/Chronic Coronary atherosclerosis and other heart disease (1 source) Atherosclerotic heart disease of [place] coronary artery without angina pectoris; Translations: [Coronary artery disease involving [place] heart, unspecified vessel or lesion type, unspecified whether angina present] Onset: 02-09-2023 Chronic Disorders of lipid metabolism (12 sources) Mixed hyperlipidemia; Translations: [Mixed hyperlipidemia] Onset: 03-08-2023 Chronic Essential hypertension (20 sources) Essential hypertension; Translations: [Essential (primary) hypertension] Onset: 06-18-2021 06-18-2021 Chronic Osteoarthritis (13 sources) Osteoarthrosis of the carpometacarpal joint of the thumb; Translations: [Unilateral primary osteoarthritis of first carpometacarpal joint, left hand] Chronic Other connective tissue disease (1 source) Bursitis of knee; Translations: [Other bursitis of knee, unspecified knee] Episodic Other connective tissue disease (1 source) Pain in right hand; Translations: [Pain in right hand] 03-29-2023 Episodic Other nervous system disorders (1 source) Other chronic pain; Translations: [Chronic pain of left knee] Onset: 11-12-2022 Chronic Other non-traumatic joint disorders (7 sources) Pain in left knee; Translations: [Pain in joint, lower leg] Onset: 11-12-2022 Episodic Other non-traumatic joint disorders (1 source) Multiple joint pain; Translations: [Pain in unspecified joint] Episodic Other non-traumatic joint disorders (1 source) Pain in right knee; Translations: [Pain in both knees, unspecified chronicity] Onset: 09-30-2023 Episodic Other nutritional; endocrine; and metabolic disorders (17 sources) Severe obesity; Translations: [Morbid (severe) obesity due to excess calories] Chronic Other nutritional; endocrine; and metabolic disorders (9 sources) Body mass index 40+ - severely obese; Translations: [Body mass index (BMI) 40.0-44.9, adult] Chronic Other nutritional; endocrine; and metabolic disorders (4 sources) Metabolic syndrome X; Translations: [Metabolic syndrome] Chronic Other nutritional; endocrine; and metabolic disorders (1 source) Obesity; Translations: [Other obesity due to excess calories] Chronic Other nutritional; endocrine; and metabolic disorders (3 sources) Body mass index 30+ - obesity; Translations: [Body mass index (BMI) 37.0-37.9, adult] Chronic Other nutritional; endocrine; and metabolic disorders (2 sources) Metabolic syndrome; Translations: [Metabolic syndrome] Onset: 03-08-2023 Chronic Other nutritional; endocrine; and metabolic disorders (1 source) Morbid (severe) obesity due to excess calories; Translations: [Class 3 severe obesity with serious comorbidity in adult, unspecified BMI, unspecified obesity type (HCC)] Onset: 03-08-2023 Chronic Other nutritional; endocrine; and metabolic disorders (1 source) Body mass index (BMI) 40.0-44.9, adult; Translations: [Body mass index 40.0-44.9, adult (HCC)] Onset: 03-08-2023 Chronic Residual codes; unclassified (20 sources) Obstructive sleep apnea syndrome; Translations: [Obstructive sleep apnea (adult) (pediatric)] Onset: 06-18-2021 06-18-2021 Chronic Residual codes; unclassified (1 source) Obstructive sleep apnea (adult) (pediatric); Translations: [Obstructive sleep apnea syndrome] Onset: 06-18-2021 Chronic Residual codes; unclassified (1 source) Pain; Translations: [Pain, unspecified] 08-13-2021 Episodic Residual codes; unclassified (1 source) Pain, unspecified; Translations: [Pain] Onset: 10-04-2023 Episodic Rheumatoid arthritis and related disease (20 sources) Rheumatoid arthritis of multiple joints; Translations: [Rheumatoid arthritis, unspecified] Onset: 01-12-2022 Chronic Thyroid disorders (20 sources) Toxic diffuse goiter; 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] Onset: 08-26-2005 08-26-2005 Chronic Unclassified (1 source) Established Patient Onset: 02-12-2023 Past or Other Problems Problem Classification Problem Date Documented Da te Episodic/Chronic Administrative/social admission (10 sources) Patient encounter status; Translations: [Dietary counseling and surveillance] Onset: 03-08-2023 Episodic Diabetes mellitus without complication (15 sources) Prediabetes; Translations: [Prediabetes] Onset: 03-08-2023 Episodic Joint disorders and dislocations; trauma-related (2 sources) Tear of medial meniscus of knee; Translations: [Other tear of medial meniscus, current injury, left knee, initial encounter] Onset: 11-12-2022 Episodic Other aftercare (20 sources) Taking high risk medication; Translations: [Other extermination inspector (current) drug therapy] Onset: 01-12-2022 01-12-2022 Episodic Other aftercare (1 source) Other extermination inspector (current) drug therapy; Translations: [High risk medication use] Onset: 01-12-2022 Episodic Other non-traumatic joint disorders (20 sources) Thumb joint stiff; Translations: [Stiffness of unspecified hand, not elsewhere classified] Onset: 06-30-2021 06-30-2021 Episodic Other non-traumatic joint disorders (2 sources) Pain in unspecified joint; Translations: [Pain in joint, multiple sites] Onset: 03-08-2023 Episodic Other screening for suspected conditions (not mental disorders or infectious disease) (20 sources) Mammography abnormal; Translations: [Other abnormal and inconclusive findings on diagnostic imaging of breast] Onset: 06-14-2008 06-14-2008 Episodic Results Test Name Value Interpretation Reference Range Facil ity Vital Signs Date Time Vital Sign Value Performing Clinician Donnie cornejo 09-06-2023 11:02-0500 Body height 165.1 cm Yen Abernathy MD Work Phone: [facility] 09-06-2023 11:02-0500 Body weight 90.72 kg Yen Abernathy MD Work Phone: [facility] 09-06-2023 11:02-0500 Diastolic blood pressure 72 mm[Hg] Yen Abernathy MD Work Phone: [facility] 09-06-2023 11:02-0500 Heart rate 95 /min Yen Abernathy MD Work Phone: [facility] 09-06-2023 11:02-0500 Systolic blood pressure 106 mm[Hg] Yen Abernathy MD Work Phone: [facility] 03-08-2023 14:00-0400 Body height 165.1 cm Kaelyn Fish MD Work Phone: [facility] 03-08-2023 14:00-0400 Body temperature 98.2 [degF] Kaelyn Fsih MD Work Phone: [facility] 03-08-2023 14:00-0400 Body weight 93.49 kg Kaelyn Fish MD Work Phone: [facility] 03-08-2023 14:00-0400 Diastolic blood pressure 73 mm[Hg] Kaelyn Fish MD Work Phone: [facility] 03-08-2023 14:00-0400 Heart rate 82 /min Kaelyn Fish MD Work Phone: [facility] 03-08-2023 14:00-0400 SaO2% (BldA) [Mass fraction] 98 % Kaelyn Fish MD Work Phone: [facility] 03-08-2023 14:00-0400 Systolic blood pressure 139 mm[Hg] Kaelyn Fish MD Work Phone: [facility] 03-08-2023 09:26-0400 Body height 162.6 cm Yen Abernathy MD Work Phone: [facility] 03-08-2023 09:26-0400 Body weight 91.63 kg Yen Abernathy MD Work Phone: [facility] 01-25-2023 13:25-0400 Body height 162.6 cm Yen Abernathy MD Work Phone: [facility] 01-25-2023 13:25-0400 Body weight 91.9 kg Yen Abernathy MD Work Phone: [facility] 01-25-2023 13:25-0400 Diastolic blood pressure 70 mm[Hg] Yen Abernathy MD Work Phone: [facility] 01-25-2023 13:25-0400 Heart rate 101 /min Yen Abernathy MD Work Phone: [facility] 01-25-2023 13:25-0400 Systolic blood pressure 126 mm[Hg] Yen Abernathy MD Work Phone: [facility] 11-27-2022 09:29-0500 Body height 162.6 cm Yen Abernathy MD Work Phone: [facility] 11-27-2022 09:29-0500 Body weight 86.18 kg Yen Abernathy MD Work Phone: [facility] 08-27-2022 11:24-0500 Body height 162.6 cm Yen Abernathy MD Work Phone: [facility] 08-27-2022 11:24-0500 Body weight 93.89 kg Yen Abernathy MD Work Phone: [facility] 06-10-2022 11:00-0400 Body height 162.6 cm Velma Murilloub MANAGER CLEANING.[employer] Work Phone: [facility] 06-10-2022 11:00-0400 Body weight 97.07 kg Velma Hastaub MANAGER CLEANING.[employer]OLE[employer] LAYER Work Phone: [facility] 05-18-2022 14:42-0400 Body height 162.6 cm Madie Barile PA-C Work Phone: [facility] 05-18-2022 14:42-0400 Body temperature 98.2 [degF] Madie Barile PA-C Work Phone: [facility] 05-18-2022 14:42-0400 Body weight 99.79 kg Madie Barile PA-C Work Phone: [facility] 05-18-2022 14:42-0400 Diastolic blood pressure 80 mm[Hg] Madie Barile PA-C Work Phone: [facility] 05-18-2022 14:42-0400 Heart rate 84 /min Madie Barile PA-C Work Phone: [facility] 05-18-2022 14:42-0400 Respiratory rate 12 /min Madie Barile PA-C Work Phone: [facility] 05-18-2022 14:42-0400 Systolic blood pressure 142 mm[Hg] Madie Barile PA-C Work Phone: [facility] 05-11-2022 11:39-0400 Body temperature 97.81 [degF] Steven Abdi MD Work Phone: [facility] 05-11-2022 11:39-0400 Body weight 100.88 kg Steven Abdi MD Work Phone: [facility] 05-11-2022 11:39-0400 Diastolic blood pressure 74 mm[Hg] Steven Abdi MD Work Phone: [facility] 05-11-2022 11:39-0400 Heart rate 82 /min Steven Abdi MD Work Phone: [facility] 05-11-2022 11:39-0400 Respiratory rate 21 /min Steven Abdi MD Work Phone: [facility] 05-11-2022 11:39-0400 SaO2% (BldA) [Mass fraction] 99 % Steven Abdi MD Work Phone: [facility] 05-11-2022 11:39-0400 Systolic blood pressure 132 mm[Hg] Steven Abdi MD Work Phone: [facility] 04-23-2022 11:14-0400 Body weight 99.34 kg Yen Abernathy MD Work Phone: [facility] 01-29-2022 10:29-040 Body height 162.6 cm Velma Hasenstaub MANAGER CLEANING.[employer] Work Phone: [facility] 01-29-2022 10:29-040 Body weight 99.79 kg Velma Hasenstaub MANAGER CLEANING.[employer] Work Phone: [facility] 01-20-2022 10:25-0400 Body height 162.6 cm Yen Abernathy MD Work Phone: [facility] 01-20-2022 10:25-0400 Body weight 110.68 kg Yen Abernathy MD Work Phone: [facility] 01-20-2022 10:25-0400 Diastolic blood pressure 80 mm[Hg] Yen Abernathy MD Work Phone: [facility] 01-20-2022 10:25-0400 Heart rate 88 /min Yen Abernathy MD Work Phone: [facility] 01-20-2022 10:25-0400 Respiratory rate 18 /min Yen Abernathy MD Work Phone: [facility] 01-20-2022 10:25-0400 SaO2% (BldA) [Mass fraction] 99 % Yen Abernathy MD Work Phone: [facility] 01-20-2022 10:25-0400 Systolic blood pressure 142 mm[Hg] Yen Abernathy MD Work Phone: [facility] Encounters Encounter Date Encounter Type Care Provider Facility Start: 10-04-2023 End: 10-04-2023 ambulatory NGOC CALDWELL Facility:[facility] Start: 09-30-2023 End: 09-30-2023 ambulatory KYM CONRAD Facility:[facility] Start: 09-06-2023 End: 09-06-[address] [facility] Facility:[facility] Start: 09-06-2023 End: 09-06-2023 Patient encounter procedure Yen Abernathy MD Work Phone: [facility] Procedures Date Procedure Procedure Detail Performing Clinician Start: 03-29-2023 End: 03-29-2023 Arthrocnt aspir&/inj small jt/bursaw/us rec rprt Ngoc Caldwell DO Work Phone: Start: 12-25-2022 Arthrocentesis aspir &/inj major jt/bursa w/o us Kym Conrad DO Work Phone: Start: 09-10-2022 Arthrocentesis aspir &/inj small jt/bursa w/o us Miguelito Wong MD Work Phone: Start: 03-21-2022 Arthrocentesis aspir &/inj major jt/bursa w/o us Kym Conrad DO Work Phone: Start: 01-12-2022 Lipid 1996 panel - S hebert or Plasma Kaelyn Fish MD Work Phone: Start: 08-13-2021 Radiologic exam knee complete 4/more views Chris Marroquin MD Work Phone: Plan of Treatment Date Care Activity Detail Author Start: 03-08-2028 Urine microalbumin profile [facility] Start: 01-12-2027 Lipid 1996 panel - Serum or Plasma Lipid Screening [facility] Start: 01-12-2027 Lipid panel Lipid Screening [facility] Start: 01-12-2027 LIPID SCREEN LIPID SCREEN [facility] Start: 05-10-2026 Diabetes Screening Diabetes Screening [facility] Start: 01-25-2026 DIABETES SCREEN DIABETES SCREEN [facility] Start: 05-19-2025 DIABETES SCREEN DIABETES SCREEN [facility] Start: 01-30-2025 DIABETES SCREEN DIABETES SCREEN [facility] Start: 01-12-2025 DIABETES SCREEN DIABETES SCREEN [facility] Start: 09-06-2024 BP Controlled (<130/80) BP Controlled (<130/80) [facility] Start: 01-26-2024 BP CONTROLLED (<130/80) BP CONTROLLED (<130/80) [facility] Start: 10-05-2023 Covid-19 Vaccine () Covid-19 Vaccine () [facility] Start: 05-21-2023 Covid-19 Vaccine ( season) Covid-19 Vaccine () [facility] Start: 05-21-2023 Influenza vaccination [facility] Start: 2023 RSV Vaccine (1 - 1-dose 60+ series) RSV Vaccine (1 - 1-dose 60+ series) [facility] Start: 09-20-2022 DEPRESSION ASSESSMENT DEPRESSION ASSESSMENT [facility] Start: 08-22-2022 COVID-19 VACCINE (5 - Darcy risk series) COVID-19 VACCINE (5 - Darcy risk series) [facility] Start: 05-21-2022 Influenza vaccination INFLUENZA (#1) [facility] Start: 05-18-2022 End: 07-18-2022 CBC W Auto Differential panel - Blood CBC + DIFF Lab Routine Rheumatoid arthritis involving multiple sites, unspecified whether rheumatoid factor present (HCC) High risk medication use Primary osteoarthritis of both knees Expected: 05/18/2022, Expires: 07/18/2022 [facility] Work Phone: Immunizations Immunization Date Immunization Notes Care Provider Cici aggarwal 08-03-2023 influenza, injectabl e, quadrivalent, preservative free Yen Abernathy MD Work Phone: [facility] 07-13-2022 influenza, injectabl e, quadrivalent, preservative free Kym Conrad DO Work Phone: [facility] 07-13-2022 influenza virus vaccine, unspecified formulation Kaelyn Fish MD Work Phone: [facility] 06-27-2022 COVID-19 booster vaccine, age 12+ yr, bivalent (PFIZER-BIONTECH) Kym Conrad DO Work Phone: [facility] 01-16-2022 COVID-19 original vaccine, age 12+ yr, monovalent (PFIZER-BIONTECH - SPRINGER TOP) Yen Abernathy MD Work Phone: [facility] 08-06-2021 COVID-19 original vaccine, age 12+ yr, monovalent (PFIZER-BIONTECH - PURPLE TOP) Yen Abernathy MD Work Phone: [facility] 06-05-2021 influenza virus vaccine, unspecified formulation Kym Conrad DO Work Phone: [facility] 05-28-2020 influenza, injectabl e, quadrivalent, preservative free Kym Conrad DO Work Phone: [facility] 05-27-2020 influenza nasal, unspecified formulation Kymjulai Bakerli DO Work Phone: [facility] 07-26-2019 influenza, injectabl e, quadrivalent, preservative free Kym Nelidaorelli DO Work Phone: [facility] 06-01-2018 influenza, injectabl e, quadrivalent, contains preservative Kymjulia Bakerli DO Work Phone: [facility] 03-08-2018 tetanus and diphther ia toxoids, not adsorbed, for adult use Kymjulia Bakerli DO Work Phone: [facility] 08-27-2017 influenza, injectabl e, quadrivalent, preservative free Kym Samuelli DO Work Phone: [facility] 08-05-2016 influenza, seasonal, injectable Kymjulia Bakerli DO Work Phone: [facility] 02-05-2016 tetanus toxoid, redu micheal diphtheria toxoid, and acellular pertussis vaccine, adsorbed Kymjulia Bakerli DO Work Phone: [facility] 06-27-2015 influenza, injectabl e, quadrivalent, preservative free Kym Bakerli DO Work Phone: [facility] 09-04-2009 novel [id number], preservative-free, injectable Kym Bakerli DO Work Phone: [facility] Payers Date Payer Category Payer Medicaid [employer] [id number] 2020-Present [phone] [address] [place] [address] Medicaid [id number] 2020 Medicaid [id number] 2020 Medicaid [id number] 2020 Medicaid [id number] Social History Date Type Detail Facility Start: 05-11-2022 End: 02-09-2023 Tobacco smoking status NHIS Ex-smoker [facility] End: 09-20-2007 History of tobacco use Cigarette Smoker [facility] Start: 10-29-2021 End: 09-06-2023 Alcohol intake Current drinker of alcohol (finding) [facility] Start: 04-03-2021 End: 05-11-2022 Tobacco Comment 2-3 packs a week [facility] Start: 1965 Sex Assigned At Female [facility] Start: 07-14-2021 End: 07-02-2022 Exposure to SARS-CoV-2 (event) Not sure [facility] End: 09-20-2007 History of tobacco use Current smoker [facility] Start: 05-11-2022 End: 01-25-2023 Cigarettes smoked current (pack per day) - Reported 0.3 [facility] Start: 05-11-2022 End: 02-09-2023 Tobacco use and exposure Smokeless tobacco non-user [facility] Start: 01-25-2023 End: 03-29-2023 Tobacco use panel [facility] National Score (1-10 0), lower number is lower risk 90 [facility] Start: 05-17-2021 Gender identity Identifies as female gender (finding) [facility] Start: 05-17-2021 Sexual orientation Heterosexual (taz frederick) [facility] Medical Equipment Procedure Code Equipment Code Equipment Origin al Text Equipment Identifier Dates Wire Dasha .045in Stainless Steel 5.5in Fixation Trocar Smooth Guide - [id number] Start: 06-18-2021 Clinical Notes 06-18-2021 to 10-04-2023 Yen Abernathy MD - 09/06/2023 11:10 AM ESTTelephone Encounter - Oma Fitzgerald MA - 08/30/2023 9:50 AM ESTTelephone Encounter - Katherine Perez LPN - 08/11/2023 11:26 AM ESTPatient Instructions Note Date & Type Note Facility 10-04-2023 Note HNO ID: [id number] Author: NGOC CALDWELL, DO Service: ? Author Type: Physician Type: Progress Notes Filed: 10/04/2023 12:47 Note Text: [facility] DEPARTMENT OF ORTHOPAEDIC SURGERY OFFICE VISIT DOCUMENTATION NOTE ASSESSMENT AND PLAN DIAGNOSIS: (M79.641) Pain of right hand (primary encounter diagnosis) (M19.041) Arthritis of finger of right hand (G56.03) Carpal tunnel syndrome on both sides Feels like both hands might be carpal tunnel as well as arthritis / tendinitis. Wears CT brace at night. Right hand middle finger MCP CSI - 03/29/23 USG CSI Today right long finger MCP IA CSI and right CT USG CSI. May return for the left CT injection. Interventions and plans for this office visit: Today, in detail, through a thorough evaluation, we discussed possible etiologies of pain and our plans for further diagnostic and therapeutic interventions. We discussed strategies for decreasing pain and improving strength, stability and motion. All of the patient's questions were answered in detail, the patient verbalized understanding and agrees with the treatment plan as discussed. In addition to the comprehensive evaluation as outlined above and as a separate element to the visit today, we have made the determination to proceed with an injection to aid in the treatment of the patient's condition. We discussed that, while rare, injections could result in adverse effects like, but not limited to infections, worsening of osteoarthritis, potential damage to tendon or ligament structures, potential tearing of tendon or ligament structures after the injection with repetitive use, numbness or tingling or damage to nerve structures. We discussed additional risks, benefits, alternatives and expected outcomes of this injection in detail, and the patient agreed to proceed with the procedure. The procedure was performed as detailed below. Additional Injections: R carpal tunnel for carpal tunnel syndrome Informed Consent Consent Obtained: Written Delmita Protocol A moment to CARE was completed. SIGN IN Personnel directly involved with the procedure wore the appropriate PPE. Patient/Surrogate Stated/Verified: Patient name, Date of , Relevant allergies and Intended procedure TIME OUT Intended patient and procedure match the source document(s). Consent documented and matches the intended procedure. Relevant labs, photos, and/or imaging studies have been reviewed. Correct side/site marked and visible. Medications required for procedure verified. 10/04/2023 12:46 PM The procedure site was prepped in the usual sterile fashion. Details:Musculoskeletal ultrasound was utilized to successfully localize placement of the injection needle at the appropriate site. Ultrasound images demonstrating local vasculature and demonstrating injection of solution were saved. Medications: 40 mg triamcinolone acetonide 40 mg/mL Anesthetics: 1 mL ROPivacaine (PF) 5 mg/mL (0.5 %) Outcome: tolerated well, no immediate complications Post-injection instructions were reviewed with the patient and the patient voiced understanding of these instructions. Small Joint Arthro/Inj: R long MCP Informed Consent Consent Obtained: Written Delmita Protocol A moment to CARE was completed. SIGN IN Personnel directly involved with the procedure wore the appropriate PPE. Patient/Surrogate Stated/Verified: Patient name, Date of , Relevant allergies and Intended procedure TIME OUT Intended patient and procedure match the source document(s). Consent documented and matches the intended procedure. Relevant labs, photos, and/or imaging studies have been reviewed. Correct side/site marked and visible. Medications required for procedure verified. 10/04/2023 12:46 PM The procedure site was prepped in the usual sterile fashion. Details:Musculoskeletal ultrasound was utilized to successfully localize placement of the injection needle at the appropriate site. Ultrasound images demonstrating local vasculature and demonstrating injection of solution were saved. Medications: 40 mg triamcinolone acetonide 40 mg/mL Anesthetics: 1 mL ROPivacaine (PF) 5 mg/mL (0.5 %) Outcome: tolerated well, no immediate complications Post-injection instructions were reviewed with the patient and the patient voiced understanding of these instructions. Ngoc Caldwell DO Sports Medicine Physician Department of Orthopaedic Surgery [facility] CHIEF COMPLAINT / REASON FOR VISIT: Germán Martinez is a 58 year old female who presents today for a follow-up evaluation of following complaint: Patient presents with: Left Hand - Established Patient Right Hand - Established Patient HISTORY OF PRESENT ILLNESS PAIN EVALUATION 10/04/2023 1234 Pain Level: 5 Pain Location: -- both hands Description: Aching Duration Amount of Time: 1 Duration Units: Years Frequency: Intermittent Intervention/Comfort measu (more content not included)... [facility] 09-30-2023 Note HNO ID: [id number] Author: KYM CONRAD DO Service: ? Author Type: Physician Type: Progress Notes Filed: 09/30/2023 12:13 Note Text: Follow Up Visit Chief Complaint Germán Martinez is a 58 year old female who presents today for follow up office visit. Patient presents with: Left Knee - Follow Up Right Knee - Follow Up 23 weeks 6 days post visit with Cori OA bilateral knees: with injections given History of Present Illness PAIN EVALUATION 08/23/2023 0847 09/26/2023 1140 Pain Level: 5 5 Description: Aching;Stiffness Aching;Stiffness Duration Amount of Time: 2 4 Duration Units: Weeks Weeks Frequency: Intermittent Intermittent Intervention/Comfort measure: Relaxation;Cold;Splinting;Other: See comment Reposition;Relaxation;Cold;Splinti ng;Other: See comment HPI: Germán Martinez is a 58 year old female for a follow up visit OA bilateral knee pains. Pain history is noted as above. Patient states her knee pain started knee pain again about a month ago. She would like injections again today. Patient also states her bilateral CTS. States it has gotten worse in the past 3 weeks. Continuing to wear brace on her right hand. She is having difficulty working out at the gym. She has an appointment with Dr. Caldwell on Wednesday for arthritis on her right 3rd finger. Taking no med's for the pain. Has been using ice and rest. She also has been wearing on her left knee. Is there any overall improvement in your condition? No Any new injury, since being seen last: No REVIEW OF SYMPTOMS: Patient did not have, and does not currently have, any weight loss, malaise, fever, chills, headache, chest pain, chest pressure, palpitations, cough, shortness of breath, orthopnea, paroxsymal nocturnal dyspnea, nausea, vomiting, diarrhea, constipation, melena, hematochezia, urinary difficulties, prolonged bleeding, easily bruising, heat or cold intolerance, new onset joint pain or swelling, new onset extremity weakness or numbness, new onset auditory or visual disturbances, lightheadedness, dizziness, partial loss of consciousness or full loss of consciousness. Current Outpatient Medications Medication Sig dulaglutide (TRULICITY) 3 mg/0.5 mL pen injector Inject 3 mg subcutaneously one time a week. sulfaSALAzine (AZULFIDINE) 500 mg tablet Take 1 tablet by mouth two times a day. metFORMIN ER (GLUCOPHAGE XR) 500 mg 24 hr tablet Take 2 tablets by mouth daily with breakfast. FA/mv,Ca,iron,min/lycopene/lut (MULTIVITAL ORAL) Take 1 tablet by mouth once daily. leflunomide (ARAVA) 20 mg tablet Take 1 tablet by mouth once daily. simvastatin (ZOCOR) 20 mg tablet Take 20 mg by mouth once daily. potassium chloride (K-TAB) 10 mEq tablet as needed. Only takes if takes hydrochlorothiazide Cholecalciferol, Vitamin D3, 25 mcg (1,000 unit) cap Take 1,000 Units by mouth once daily. amLODIPine (NORVASC) 10 mg tablet Take 5 mg by mouth once daily. cyclobenzaprine (FLEXERIL) 10 mg tablet Take 5 mg by mouth at bedtime as needed. hydroCHLOROthiazide 12.5 mg capsule Take 12.5 mg by mouth as needed. lisinopril (ZESTRIL, PRINIVIL) 20 mg tablet Take 1 tablet by mouth once daily. levothyroxine (SYNTHROID) 75 mcg tablet Take 75 mcg by mouth once daily. Phentermine HCl 37.5 mg tablet Take 1 tablet by mouth once daily for 60 days. (Patient taking differently: Take 37.5 mg by mouth once daily. Taking 1/2 tablet every other day and 1 on the other days) Current Facility-Administered Medications Medication Dose Route Frequency perflutren lipid microspheres 1.3 mL in NaCl (PF) 0.9% 10 mL injection (DEFINITY) INTRAVENOUS DIRECTED PRN sodium chloride 0.9 % (flush) 10 mL (BD POSIFLUSH) 10 mL INTRAVENOUS DIRECTED PRN Physical Exam Vitals: There were no vitals taken for this visit. Psych: Pleasant, good affect and mood General Appearance: Well appearing, alert, in no acute distress, well-hydrated, well nourished.. Skin: Skin color, texture, turgor normal, no suspicious rashes or lesions. Peripheral Pulses: Normal. Neurologic: Gait normal. Reflexes normal and symmetric. Sensation grossly intact.. Lymph Nodes: No cervical lymphadenopathy, No supraclavicular lymphadenopathy, No axillary lymphadenopathy., and No inguinal lymphadenopathy.. Respiratory: No recent pulmonary infection, hemoptysis, chronic cough, or shortness of breath at rest Rheumatologic: Joint deformities: b/l knee pain Ortho Exam Assessment and Plan Radiographs: I have independently reviewed films and my findings are the same. and I have reviewed the images with the patient and family. Last XR Knee - Impression Only XR KNEE GENERAL 4V AP BOTH/PA BOTH/LAT/MERC BILATERAL Exam End: 09/30/2023 9:03 AM (In process) Impression: Encounter Diagnosis ICD-10-CM 1. Primary osteoarthritis of both knees M17.0 Today, in detail, through a thorough evaluation, we discussed possible etiologies of pain and our plans for further diagnostic and (more content not included)... [facility] 09-30-2023 Note HNO ID: [id number] Author: MARVIN FARLEY RT(R) Service: Radiology Author Type: Technologist Type: Progress Notes Filed: 09/30/2023 09:02 Note Text: Radiology Service Progress Note PATIENT NAME: Germán Martinez DATE OF SERVICE: September 30, 2023 TIME: 8:49 AM PATIENT IDENTITY VERIFICATION COMPLETED USING TWO (2) IDENTIFIERS: Name and Date of confirmed by patient verbally. FALL SCREENING: Has the patient had 2 falls in the last year or 1 fall with injury or currently using an Ambulatory Assistive Device (Walker, Cane, Wheelchair, Crutches, etc.)? No PATIENT GENDER DATA: Female. status: : No status: NO. PATIENT RELEVANT IMPLANT DATA REVIEWED: Not Applicable RADIOLOGY DEPARTMENT: General X-ray: Exam(s) Completed: Lower Extremity X-Ray(s): Knee, AP / Lat / Tunne / Merchant Bilateral and Wt. Bearing PERIPHERAL IV DATA: Not applicable SIGNED BY: RT Daniel(R) September 30, 2023 8:49 AM [facility] 09-06-2023 Note HNO ID: [id number] Author: Yen Abernathy MD Service: ? Author Type: Physician Type: Progress Notes Filed: 09/06/2023 11:59 AM Note Text: Yen Abernathy MD [facility] [address] [place] [address], [facility] [address] [facility] [address] [place] [address] Germán Martinez is a 57 year old female with PMH of DUNG, hypothyroidism, RA, hypertension, prediabetes* here today for a follow up on her weight loss efforts. She is currently taking the prescription weight loss medication Phentermine and Trulicity, off label Concerns: --She has been able to tolerate Trulicity better. She just received refill of 3 mgs regarding increasing dose to 4.5 mgs -She is still struggling with cravings more in the mid afternoon but evening time she is fine. Today we discussed about increasing phentermine to full pill that may help some. --She was able to lose weight and was down to 188 pounds but during Thanksgiving and with all the stressors in COVID cases she has gained some weight back again. Also lack of physical activities due to meniscal tear currently following with Ortho. Overall she has been able to maintain weight despite off of Ozempic :highest weight 244 pounds stopped Topamax: as she is developing cataract / cognitive side effects ozempic no longer covered She is continuing with diet changes: yes -Main focus of dietary changes: Stop snacking and grazing/getting 70 oz of water She is continuing with exercise changes: yes -Exercise routine:not much Some water therapy Meniscal tear /following with Ortho Also struggling with Carpal tunnel rt arm HR : up to 115 denies chest pain No chest pain with activities Weights Goal weight:150 pound Review of weight loss medication side effects Any GI upset? no Changes to blood pressure? no Visual Changes: no -- Patient reports some suppression of her appetite and increase in satiety since starting the medication Diet: Protein shake And protein with each meals Has been very consistent with her meals. Spacing her meals Denies snacking Though has noticed that at times her snacking been an issue Sleep: Good Stress: Coping better Smoking/Alcohol -denies Review of Systems Constitutional: Negative for malaise/fatigue. HENT: Negative for congestion and tinnitus. Eyes: Negative for blurred vision. Respiratory: Negative for shortness of breath. Cardiovascular: Negative for palpitations, orthopnea and leg swelling. Gastrointestinal: Negative for heartburn, nausea and vomiting. Genitourinary: Negative for dysuria and frequency. Musculoskeletal: Negative for back pain and joint pain. Neurological: Negative for weakness. Psychiatric/Behavioral: The patient does not have insomnia. No previous history of pancreatitis No personal or family history of medullary thyroid cancer No Family history of MEN syndrome S/p thyroid radiation??no cancer VITALS: BP 106/72 Pulse 95 Ht 165.1 cm (5' 5 ) Wt 90.7 kg (200 lb) LMP (LMP Unknown) BMI 33.28 kg/m? , Body mass index is 33.28 kg/m?. Physical Exam Constitutional:. --no issues with communication HEENT: Normocephalic and atraumatic. Eyes: Conjunctiva appear normal. No scleral icterus. Hearing: Is grossly intact. Neck: Range of motion appears normal. Thyroid: appears symmetric and not enlarged. Pulmonary/Chest: Effort normal. Psychiatric: Mood, memory, affect and judgment normal. Neurological: alert and oriented to person, place, and time. Impression and Plan: ASSESSMENT/PLAN: 1. Class 3 severe obesity with serious comorbidity in adult, unspecified BMI, unspecified obesity type (HCC) - ICD9: 278.01, ICD10: E66.01 (primary diagnosis) Stable - Pharmacological intervention and - Behavioral and pharmacological intervention -- counseled in length ,recommended Low carb /low sugar diet --managing maladaptive eating behaviors and adding resistance exercise. Continue low carb diet, weights/cardio exercise and increase NEAT. -Cravings better controlled on phentermine. Recommend to continue phentermine and today I increase Trulicity to 3 mg. --Topamax was stopped by his community health worker due to possible risk of cataract development per pt/cognitive side effects --She was able to lose weight and was down to 188 pounds but during Thanksgiving and with all the stressors in COVID cases she has gained some weight back again. Also lack of physical activities due to meniscal tear currently following with Ortho. Overall she has been able to maintain weight despite off of Ozempic :highest weight 244 pounds -Ozempic no longer covered PDMP website checked and validated. All prescriptions have been APPROPRIATELY filled. No suspicious activity was identified. 09/06/23 by Yen Abernathy MD 2. Mixed hyperlipidemia - ICD9: 272.2, ICD10: E78.2 - suboptimal control - Encouraged following a low fat, low cholesterol di (more content not included)... [facility] 09-06-2023 History of Present illness Narrative Images from the original note were not included. Yen Abernathy MD [facility] [address] [facility], [address] [facility] [address] [place] [address] Germán Martinez is a 57 year old female with PMH of DUNG, hypothyroidism, RA, hypertension, prediabetes* here today for a follow up on her weight loss efforts. She is currently taking the prescription weight loss medication Phentermine and Trulicity, off label Concerns: --She has been able to tolerate Trulicity better. She just received refill of 3 mgs regarding increasing dose to 4.5 mgs -She is still struggling with cravings more in the mid afternoon but evening time she is fine. Today we discussed about increasing phentermine to full pill that may help some. --She was able to lose weight and was down to 188 pounds but during Thanksgi and with all the stressors in COVID cases she has gained some weight back again. Also lack of physical activities due to meniscal tear currently following with Ortho. Overall she has been able to maintain weight despite off of Ozempic :highest weight 244 pounds stopped Topamax: as she is developing cataract / cognitive side effects ozempic no longer covered She is continuing with diet changes: yes -Main focus of dietary changes: Stop snacking and grazing/getting 70 oz of water She is continuing with exercise changes: yes -Exercise routine:not much Some water therapy Meniscal tear /following with Ortho Also struggling with Carpal tunnel rt arm HR : up to 115 denies chest pain No chest pain with activities Weights Goal weight:150 pound Review of weight loss medication side effects Any GI upset? no Changes to blood pressure? no Visual Changes: no -- Patient reports some suppression of her appetite and increase in satiety since starting the medication Diet: Protein shake And protein with each meals Has been very consistent with her meals. Spacing her meals Denies snacking Though has noticed that at times her snacking been an issue Sleep: Good Stress: Coping better Smoking/Alcohol -denies Review of Systems Constitutional: Negative for malaise/fatigue. HENT: Negative for congestion and tinnitus. Eyes: Negative for blurred vision. Respiratory: Negative for shortness of breath. Cardiovascular: Negative for palpitations, orthopnea and leg swelling. Gastrointestinal: Negative for heartburn, nausea and vomiting. Genitourinary: Negative for dysuria and frequency. Musculoskeletal: Negative for back pain and joint pain. Neurological: Negative for weakness. Psychiatric/Behavioral: The patient does not have insomnia. No previous history of pancreatitis No personal or family history of medullary thyroid cancer No Family history of MEN syndrome S/p thyroid radiation??no cancer VITALS: BP 106/72 Pulse 95 Ht 165.1 cm (5' 5 ) Wt 90.7 kg (200 lb) LMP (LMP Unknown) BMI 33.28 kg/m , Body mass index is 33.28 kg/m . Physical Exam Constitutional:. --no issues with communication HEENT: Normocephalic and atraumatic. Eyes: Conjunctiva appear normal. No scleral icterus. Hearing: Is grossly intact. Neck: Range of motion appears normal. Thyroid: appears symmetric and not enlarged. Pulmonary/Chest: Effort normal. Psychiatric: Mood, memory, affect and judgment normal. Neurological: alert and oriented to person, place, and time. Impression and Plan: ASSESSMENT/PLAN: 1. Class 3 severe obesity with serious comorbidity in adult, unspecified BMI, unspecified obesity type (HCC) - ICD9: 278.01, ICD10: E66.01 (primary diagnosis) Stable - Pharmacological intervention and - Behavioral and pharmacological intervention -- counseled in length ,recommended Low carb /low sugar diet --managing maladaptive eating behaviors and adding resistance exercise. Continue low carb diet, weights/cardio exercise and increase NEAT. -Cravings better controlled on phentermine. Recommend to continue phentermine and today I increase Trulicity to 3 mg. --Topamax was stopped by his community health worker due to possible risk of cataract development per pt/cognitive side effects --She was able to lose weight and was down to 188 pounds but during Thanksgi and with all the stressors in COVID cases she has gained some weight back again. Also lack of physical activities due to meniscal tear currently following with Ortho. Overall she has been able to maintain weight despite off of Ozempic :highest weight 244 pounds -Ozempic no longer covered PDMP website checked and validated. All prescriptions have been APPROPRIATELY filled. No suspicious activity was identified. 09/06/23 by Yen Abernathy MD 2. Mixed hyperlipidemia - ICD9: 272.2, ICD10: E78.2 - suboptimal control - Encouraged following a low fat, low cholesterol diet. 3. Dietary counseling and surveillance - ICD9: V65.3, ICD10: Z71.3 Reviewed principles of energy metabolism, caloric intake and expenditure, and rationale for treatment program. Also reinforced need for reduced calorie, low fat diet and increased physical activity. 4. Primary hypertension - ICD9: 401.9, ICD10: I10 - Improved control-Recommended to monitor blood pressure at home. - Continue current medication(s) - Recommended regular aerobic exercise. - Recommend home blood pressure monitoring, to bring results in on next visit - Goal of BP <130/80 5. DUNG (obstructive sleep apnea) - ICD9: 327.23, ICD10: G47.33 Counseled on using her CPAP regularly. 6. Acquired hypothyroidism - ICD9: 244.9, ICD10: E03.9 - Instructed patient on importance of taking on an empty stomach either first thing in the morning or at bedtime. 7. Obstructive sleep apnea syndrome - ICD9: 327.23, ICD10: G47.33 Counseled on using her CPAP regularly. 8. Hypothyroidism, unspecified type - ICD9: 244.9, ICD10: E03.9 - Instructed patient on importance of taking on an empty stomach either first thing in the morning or at bedtime. 9. Prediabetes - ICD9: 790.29, ICD10: R73.03 -Has been tolerating metformin Recommend 10. BMI >40 BMI around 34.7 -- counseled in length ,recommended Low carb /low sugar diet --managing maladaptive eating behaviors and adding resistance exercise. Continue low carb diet, weights/cardio exercise and increase NEAT. Yen Abernathy MD Her weight-related medical comorbidities are improving with weight loss. She is doing well otherwise, continues lifestyle modification. She remains motivated to lose weight. Reviewed principles of energy metabolism, caloric intake and expenditure, and rationale for treatment program. Also reinforced need for reduced calorie, low fat diet and increased physical activity. Yen Abernathy MD Some elements were copied from my last note, which have been updated where appropriate, and all reflect current medical decision making from TODAY History Review: I have reviewed and modified as needed, the following during this visit: Allergies, Past Medical History, Past Surgical History, Past Family History, Past Social History. Counseling Visit 18 minutes for preventive counseling/IBT Screening for obesity completed during initial plan of care. Patient was competent and alert at the time that counseling was provided. 5a's reviewed: Assess- I assessed behavioral health risk/factors affecting --- Asked about/assess behavioral health risk(s) and factors affecting choice of behavior change goals -insulin resistance/metabolic syndrome: -Tolerating Trulicity better discussed increasing 4.5 Several stressors working on her grandkids custody -Increased hunger cravings Tolerating phentermine well denies any chest pain or breathing issues working out whenever she gets a child chance and denies any chest pain or discomfort with physical activities. - cravings in the afternoon. Advise: clear, specific, personalized behavior change advice. -I gave very clear, specific, and personalized behavior change adviced, including information about personal health harms and benefits. Agree: Patient agrees with selected appropriate treatment goals and methods to change behavior Assist:provided IBT w self-help, handouts, teaching skills and support Using behavior change techniques with self-help and Counseling in achieving Goals. Also discussed supplementing with adjunctive medical treatments when appropriate. Arrange- follow up scheduled, Handouts given to patient My opinion -- 3 hour Rule -last meal /snack 3 hours before sleeping ,try to be done by 7 pm --eat Rich Breakfast - At Least 3 hours break between each meals ,except water --sleep 7 hours at night , that means going to bed early -- drink only water ( no soda or juices) /no Alcohol consumption --cut down on coffee consumption if consuming high amounts Website :You can visit to web site for low carb recipe information as well as visual guide to low carb food: Greenstack Limit carb consumption to 80- 100 grams per day. Goals: formal exercise 2-5 x/week as tolerated, start with 10 mins/day to goal of 30 minutes Have 3 meals a day-protein source with each meal (structured meal planning) Food journal daily and bring it to all appointments -- IN GENERAL - suggestions based on important of our sleep cycle called circadian rhythm and its influence on our gut microbiota and overall health tragetory 1) EAT MOST OF YOUR FOOD IN AM AND EARLY PM 2) NO EATING AT NIGHT 3) EXERCISE DURING DAY 4) BE CONSISTENT WITH MEAL STRUCTURE ie Meals at same time during the day. -- keep record of your food intake - it is easier for us to understand your eating habits and food preferences, looking into the amounts of protein, carbs, and fat in your diet. Good examples of apps to track calories are PernixDataPAL, LOSE IT. Some patient have found FOODUCATE to help with decisions around food, however choose apps that best suits you. -- for exercise, you should shoot for a goal of >150 min per week initially. Depending at what level you are starting, that may seem like an unachievable task. However, the best plan is to just begin to walk or bike or do another activity that you like and track your steps per day. You do not need to pay attention to the time, but you do need to try to increase your exercise every 3 weeks. Other strength exercises, using light weights or training bands may also be useful, especially when combined with regular aerobic exercise. Studies have shown that >200min per week is best to maintain weight loss, so that would be the overall end goal. -- One option we discussed is to REPLACE one of your meals with a liquid meal or frozen meal. This is easy to start and may help with your weight. 1. Liquid meal replacement (Boost, Ensure) 2. Frozen meal (Healthy Choice, Lean Cuisine - sodium under 650mg, can always add veggies to the meal) 3. Powdered protein (Premier Protein) or meal replacement (I like a plant based meal replacement called Flixlab - can mix w froz berries and almond milk) This note was partially generated using Zyncro voice recognition system, and there may be some incorrect words, spellings, and punctuation that were not noted in checking the note before saving History Review: I have reviewed and modified as needed, the following during this visit: Allergies, Past Medical History, Past Surgical History, Past Family History, Past Social History. History Review: I have reviewed and modified as needed, the following during this visit: Allergies, Past Medical History, Past Surgical History, Past Family History, Past Social History. documented in this encounter [facility] 08-30-2023 Miscellaneous Notes Patient sent a [employer] message requesting the following refill. Requested Prescriptions Pending Prescriptions Disp Refills dulaglutide (TRULICITY) 3 mg/0.5 mL pen injector 6 mL 0 Sig: Inject 3 mg subcutaneously one time a week. Next Appointment: 09/06/2023 Patient Phone numbers: [phone] (home) Request is for script(s) to be escript to pharmacy. Oma Fitzgerald MA documented in this encounter [facility] 08-11-2023 Miscellaneous Notes Patient requesting the following refill. Requested Prescriptions Pending Prescriptions Disp Refills sulfaSALAzine (AZULFIDINE) 500 mg tablet 60 tablet 1 Sig: Take 1 tablet by mouth two times a day. Patient last appointment: 03/08/2023 Next Appointment: 11/05/2023 Patient Phone numbers: [phone] (home) Request is for script(s) to be escript to pharmacy. [facility] [address] - [place] [address] [address] [facility] - [phone] Katherine Perez LPN documented in this encounter [facility] 07-02-2023 Miscellaneous Notes Patient sent a [employer] message requesting the following refill. Requested Prescriptions Pending Prescriptions Disp Refills metFORMIN ER (GLUCOPHAGE XR) 500 mg 24 hr tablet 180 tablet 0 Sig: Take 2 tablets by mouth daily with breakfast. Next Appointment: [place] 09/06/23 Patient Phone numbers: [phone] (home) Request is for script(s) to be escript to pharmacy. Fidelina Garay Ma documented in this encounter [facility] 06-10-2023 Miscellaneous Notes Patient called asking if her prescription for Azulfidine 500 mg was sent to her pharmacy. Confirmed it was sent on 06/10/2023. sulfaSALAzine (AZULFIDINE) 500 mg tablet 60 tablet 1 06/10/2023 -- Sig: take 1 tablet by mouth twice daily. Sent to pharmacy as: sulfaSALAzine (AZULFIDINE) 500 mg tablet [facility] [address] - [place] [address] [address] [facility] - [phone] Katherine Perez LPN Pharmacy requesting the following refill. Requested Prescriptions Pending Prescriptions Disp Refills sulfaSALAzine (AZULFIDINE) 500 mg tablet [Pharmacy Med Name: sulfasalazine 500 mg tablet] 60 tablet 1 Sig: take 1 tablet by mouth twice daily. Patient last appointment: 03/08/2023 Next Appointment: 07/08/2023 Patient Phone numbers: [phone] (home) Request is for script(s) to be escript to pharmacy. [facility] [address] [place] [address] - [address] - [phone] Katherine Perez LPN documented in this encounter [facility] 05-28-2023 Note HNO ID: [id number] Author: Yen Abernathy MD Service: ? Author Type: Physician Type: Progress Notes Filed: 05/28/2023 2:58 PM Note Text: Yen Abernathy MD [address], [facility] [address] [place] [address] This Team Access Model visit is a virtual visit It required patient-provider interaction for the medical decision making as documented below. Consent was obtained to complete today's distance health visit. I have communicated my name and active licensure. The patient's identity and physical location were verified at the time of this visit. Either the patient or their legal credit and collections representative has been informed of the risks and benefits of -- and alternatives to -- treatment through a remote evaluation and consents to proceed with the evaluation remotely. Germán Martinez is a 57 year old female with PMH of DUNG, hypothyroidism, RA, hypertension, prediabetes* here today for a follow up on her weight loss efforts. She is currently taking the prescription weight loss medication Phentermine and Trulicity, off label Concerns: --She has been able to tolerate Trulicity better. Cravings and hunger little better controlled --Has been on under multiple stressors, taking care of her 4 grandkids. Fighting further custody --has been on Phentermine since February weight loss is slow stopped Topamax: as she is developing cataract / cognitive side effects ozempic no longer covered She is continuing with diet changes: yes -Main focus of dietary changes: Stop snacking and grazing/getting 70 oz of water She is continuing with exercise changes: yes -Exercise routine bike ride : when she can get a chance she is going to the gym Weight training Running around around behind 4 kids HR : up to 115 denies chest pain No chest pain with activities Weights Goal weight:150 pound Review of weight loss medication side effects Any GI upset? no Changes to blood pressure? no Visual Changes: no -- Patient reports some suppression of her appetite and increase in satiety since starting the medication Diet: Protein shake And protein with each meals Has been very consistent with her meals. Spacing her meals Denies snacking Though has noticed that at times her snacking been an issue Sleep: Good Stress: Coping better Smoking/Alcohol -denies Review of Systems Constitutional: Negative for malaise/fatigue. HENT: Negative for congestion and tinnitus. Eyes: Negative for blurred vision. Respiratory: Negative for shortness of breath. Cardiovascular: Negative for palpitations, orthopnea and leg swelling. Gastrointestinal: Negative for heartburn, nausea and vomiting. Genitourinary: Negative for dysuria and frequency. Musculoskeletal: Negative for back pain and joint pain. Neurological: Negative for weakness. Psychiatric/Behavioral: The patient does not have insomnia. No previous history of pancreatitis No personal or family history of medullary thyroid cancer No Family history of MEN syndrome S/p thyroid radiation??no cancer VITALS: Ht 165.1 cm (5' 5 ) Wt 89.8 kg (198 lb) LMP (LMP Unknown) BMI 32.95 kg/m? , Body mass index is 32.95 kg/m?. Physical Exam Constitutional:. --no issues with communication HEENT: Normocephalic and atraumatic. Eyes: Conjunctiva appear normal. No scleral icterus. Hearing: Is grossly intact. Neck: Range of motion appears normal. Thyroid: appears symmetric and not enlarged. Pulmonary/Chest: Effort normal. Psychiatric: Mood, memory, affect and judgment normal. Neurological: alert and oriented to person, place, and time. Impression and Plan: ASSESSMENT/PLAN: 1. Class 3 severe obesity with serious comorbidity in adult, unspecified BMI, unspecified obesity type (HCC) - ICD9: 278.01, ICD10: E66.01 (primary diagnosis) Weight decreasing - Pharmacological intervention and - Behavioral and pharmacological intervention -- counseled in length ,recommended Low carb /low sugar diet --managing maladaptive eating behaviors and adding resistance exercise. Continue low carb diet, weights/cardio exercise and increase NEAT. -Cravings better controlled on phentermine. Recommend to continue phentermine and today I increase Trulicity to 3 mg. --Topamax was stopped by his community health worker due to possible risk of cataract development per pt/cognitive side effects -Ozempic no longer covered PDMP website checked and validated. All prescriptions have been APPROPRIATELY filled. No suspicious activity was identified. 05/28/23 by Yen Abernathy MD 2. Mixed hyperlipidemia - ICD9: 272.2, ICD10: E78.2 - suboptimal control - Encouraged following a low fat, low cholesterol diet. 3. Dietary counseling and surveillance - ICD9: V65.3, ICD10: Z71.3 Reviewed principles of energy metabolism, caloric intake and expenditure, and rationale for treatment program. Also rein (more content not included)... [facility] 05-10-2023 Miscellaneous Notes Pharmacy called requesting the following refill. Requested Prescriptions Pending Prescriptions Disp Refills Phentermine HCl 37.5 mg tablet 15 tablet 1 Si/2 pill daily dulaglutide (TRULICITY) 1.5 mg/0.5 mL pen injector 2 mL 1 Sig: Inject 1.5 mg subcutaneously one time a week. Next Appointment: Visit date not found Patient Phone numbers: [phone] (home) Request is for script(s) to be escript to pharmacy. Oma Fitzgerald documented in this encounter [facility] 04-16-2023 Note HNO ID: [id number] Author: Violet Dixon PA-C Service: ? Author Type: Physician Hotel Service Supervisor Type: Progress Notes Filed: 04/16/2023 10:30 AM Note Text: Ms. Germán Martinez presents today for bilateral knee corticosteroid injections. She has known osteoarthritis and has been treated with injections in the past. Her last injections were 12/25/2022. Today she rates her pain a 5 on a scale of 0 to 10. Large Joint Arthro/Inj: R knee joint Informed Consent Consent Obtained: Verbal Delmita Protocol A moment to CARE was completed. SIGN IN Personnel directly involved with the procedure wore the appropriate PPE. Special Equipment: N/A Patient/Surrogate Stated/Verified: Patient name, Date of , Relevant allergies and Intended procedure TIME OUT Intended patient and procedure match the source document(s). Consent documented and matches the intended procedure. Relevant labs, photos, and/or imaging studies have been reviewed. Correct side/site marked and visible. Medications required for procedure verified. No fire risk assessment and interventions applicable. No implant(s) inserted. 04/16/2023 10:29 AM The procedure site was prepped in the usual sterile fashion. Site: R knee joint Medications: 80 mg triamcinolone acetonide 40 mg/mL Anesthetics: 1 mL lidocaine (PF) 10 mg/mL (1 %) Outcome: Tolerated well, no immediate complications Post-injection instructions were reviewed with the patient and the patient voiced understanding of these instructions. SIGN OUT No instruments, equipment or retained foreign bodies applicable. Large Joint Arthro/Inj: L knee joint Informed Consent Consent Obtained: Verbal Delmita Protocol A moment to CARE was completed. SIGN IN Personnel directly involved with the procedure wore the appropriate PPE. Special Equipment: N/A Patient/Surrogate Stated/Verified: Patient name, Date of , Relevant allergies and Intended procedure TIME OUT Intended patient and procedure match the source document(s). Consent documented and matches the intended procedure. Relevant labs, photos, and/or imaging studies have been reviewed. Correct side/site marked and visible. Medications required for procedure verified. No fire risk assessment and interventions applicable. No implant(s) inserted. 04/16/2023 10:29 AM The procedure site was prepped in the usual sterile fashion. Site: L knee joint Aspirate: 25 mL yellow and serous Medications: 80 mg triamcinolone acetonide 40 mg/mL Anesthetics: 1 mL lidocaine (PF) 10 mg/mL (1 %) Outcome: Tolerated well, no immediate complications Post-injection instructions were reviewed with the patient and the patient voiced understanding of these instructions. SIGN OUT No instruments, equipment or retained foreign bodies applicable. Vioelt Dixon PA-C [facility] 04-02-2023 Miscellaneous Notes LV for patient to give me a call back Zuleima Helms Sulfasalazine NO AUTH REQUIRED [facility] COVER MY MEDS Zuleima Helms Sulfasalazine PENDING [facility] COVER MY MEDS Zuleima Helms documented in this encounter [facility] 03-29-2023 Note HNO ID: [id number] Author: Ngoc Caldwell, DO Service: ? Author Type: Physician Type: Progress Notes Filed: 03/29/2023 1:49 PM Note Text: [facility] DEPARTMENT OF ORTHOPAEDIC SURGERY OFFICE VISIT DOCUMENTATION NOTE ASSESSMENT AND PLAN DIAGNOSIS: (M79.641) Pain of right hand (primary encounter diagnosis) (M19.041) Arthritis of finger of right hand Interventions and plans for this office visit: Today, in detail, through a thorough evaluation, we discussed possible etiologies of pain and our plans for further diagnostic and therapeutic interventions. We discussed strategies for decreasing pain and improving strength, stability and motion. To address the diagnosis of hand osteoarthritis we discussed the use of glucosamine, chondroitin and other natural supplements, we discussed the limited but potential role and side effects of NSAID medication, we discussed the importance of completing physical therapy and a home therapy program, we discussed the use of bracing for stabilization and assistance with gripping, grasping and other hand use, we discussed the role of injection therapies to aid in improving the pain and function of the knee and we discussed consideration of surgical interventions in the future. All of the patient's questions were answered in detail, the patient verbalized understanding and agrees with the treatment plan as discussed. In addition to the comprehensive evaluation as outlined above and as a separate element to the visit today, we have made the determination to proceed with an injection to aid in the treatment of the patient's condition. We discussed that, while rare, injections could result in adverse effects like, but not limited to infections, worsening of osteoarthritis, potential damage to tendon or ligament structures, potential tearing of tendon or ligament structures after the injection with repetitive use, numbness or tingling or damage to nerve structures. We discussed additional risks, benefits, alternatives and expected outcomes of this injection in detail, and the patient agreed to proceed with the procedure. The procedure was performed as detailed below. Small Joint Arthro/Inj: R long MCP CSi Informed Consent Consent Obtained: Written Delmita Protocol A moment to CARE was completed. SIGN IN Personnel directly involved with the procedure wore the appropriate PPE. Patient/Surrogate Stated/Verified: Patient name, Date of , Relevant allergies and Intended procedure TIME OUT Intended patient and procedure match the source document(s). Consent documented and matches the intended procedure. Relevant labs, photos, and/or imaging studies have been reviewed. Correct side/site marked and visible. Medications required for procedure verified. 03/29/2023 1:43 PM The procedure site was prepped in the usual sterile fashion. Details:Musculoskeletal ultrasound was utilized to successfully localize placement of the injection needle at the appropriate site. Ultrasound images demonstrating local vasculature and demonstrating injection of solution were saved. Medications: 40 mg triamcinolone acetonide 40 mg/mL Anesthetics: 1 mL ROPivacaine (PF) 5 mg/mL (0.5 %) Outcome: tolerated well, no immediate complications Post-injection instructions were reviewed with the patient and the patient voiced understanding of these instructions. Ngoc Caldwell DO Sports Medicine Physician Department of Orthopaedic Surgery [facility] CHIEF COMPLAINT / REASON FOR VISIT: Germán Martinez is a 58 year old female who presents today for a follow-up evaluation of following complaint: Patient presents with: Right Middle Finger - Established Patient HISTORY OF PRESENT ILLNESS PAIN EVALUATION 03/25/20233 03/29/2023 1325 Pain Level: 6 6 Pain Location: -- Finger Description: Aching;Pressure;Radiating;Stiffnes s;Tightness Aching Duration Amount of Time: -- 3 Duration Units: Months Months Frequency: Continuous Intermittent Intervention/Comfort measure: Massage;Other: See comment Medication Comments: Swelling pain in nuckle and fingers -- Review of Systems Constitutional: Any recent fevers? No Gastrointestinal: Any abdominal discomfort? No Integumentary: Any recent skin changes or rashes? No Germán Martinez is a 58 year old female with the presenting complaint of Established Patient of the Right Middle Finger. Germán reports a current pain level of 6 (Finger). She describes the pain as Aching. The pain is Intermittent, and has lasted for 3 Months. Interventions tried include Medication. . She was last seen in orthopaedic clinic for her hand/finger on 12/10/2022 with Miguelito Wong. Most recent hand imaging was completed on 09/11/2022 (XR HAND GENERAL 3V PA/LAT/OBL RIGHT) . The most recent injection was Small Joint Arthro/Inj: R long MCP, injected on 12/10/2022 by Miguelito Wong. In the past (based on all medication hist (more content not included)... [facility] 03-29-2023 History of Present illness Narrative Associated Order(s): Small Joint Arthro/Inj: R long MCP CSi Post-Procedure Diagnose(s): Pain of right hand; Arthritis of finger of right hand Images from the original note were not included. [facility] DEPARTMENT OF ORTHOPAEDIC SURGERY OFFICE VISIT DOCUMENTATION NOTE ASSESSMENT AND PLAN DIAGNOSIS: (M79.641) Pain of right hand (primary encounter diagnosis) (M19.041) Arthritis of finger of right hand Interventions and plans for this office visit: Today, in detail, through a thorough evaluation, we discussed possible etiologies of pain and our plans for further diagnostic and therapeutic interventions. We discussed strategies for decreasing pain and improving strength, stability and motion. To address the diagnosis of hand osteoarthritis we discussed the use of glucosamine, chondroitin and other natural supplements, we discussed the limited but potential role and side effects of NSAID medication, we discussed the importance of completing physical therapy and a home therapy program, we discussed the use of bracing for stabilization and assistance with gripping, grasping and other hand use, we discussed the role of injection therapies to aid in improving the pain and function of the knee and we discussed consideration of surgical interventions in the future. All of the patient's questions were answered in detail, the patient verbalized understanding and agrees with the treatment plan as discussed. In addition to the comprehensive evaluation as outlined above and as a separate element to the visit today, we have made the determination to proceed with an injection to aid in the treatment of the patient's condition. We discussed that, while rare, injections could result in adverse effects like, but not limited to infections, worsening of osteoarthritis, potential damage to tendon or ligament structures, potential tearing of tendon or ligament structures after the injection with repetitive use, numbness or tingling or damage to nerve structures. We discussed additional risks, benefits, alternatives and expected outcomes of this injection in detail, and the patient agreed to proceed with the procedure. The procedure was performed as detailed below. Small Joint Arthro/Inj: R long MCP CSi Informed Consent Consent Obtained: Written Delmita Protocol A moment to CARE was completed. SIGN IN Personnel directly involved with the procedure wore the appropriate PPE. Patient/Surrogate Stated/Verified: Patient name, Date of , Relevant allergies and Intended procedure TIME OUT Intended patient and procedure match the source document(s). Consent documented and matches the intended procedure. Relevant labs, photos, and/or imaging studies have been reviewed. Correct side/site marked and visible. Medications required for procedure verified. 03/29/2023 1:43 PM The procedure site was prepped in the usual sterile fashion. Details:Musculoskeletal ultrasound was utilized to successfully localize placement of the injection needle at the appropriate site. Ultrasound images demonstrating local vasculature and demonstrating injection of solution were saved. Medications: 40 mg triamcinolone acetonide 40 mg/mL Anesthetics: 1 mL ROPivacaine (PF) 5 mg/mL (0.5 %) Outcome: tolerated well, no immediate complications Post-injection instructions were reviewed with the patient and the patient voiced understanding of these instructions. Ngoc Caldwell DO Sports Medicine Physician Department of Orthopaedic Surgery [facility] CHIEF COMPLAINT / REASON FOR VISIT: Germán Martinez is a 58 year old female who presents today for a follow-up evaluation of following complaint: Patient presents with: Right Middle Finger - Established Patient HISTORY OF PRESENT ILLNESS PAIN EVALUATION 03/25/2023 2133 03/29/2023 1325 Pain Level: 6 6 Pain Location: -- Finger Description: Aching;Pressure;Radiating;Stiffnes s;Tightness Aching Duration Amount of Time: -- 3 Duration Units: Months Months Frequency: Continuous Intermittent Intervention/Comfort measure: Massage;Other: See comment Medication Comments: Swelling pain in nuckle and fingers -- Review of Systems Constitutional: Any recent fevers? No Gastrointestinal: Any abdominal discomfort? No Integumentary: Any recent skin changes or rashes? No Germán Martinez is a 58 year old female with the presenting complaint of Established Patient of the Right Middle Finger. Germán reports a current pain level of 6 (Finger). She describes the pain as Aching. The pain is Intermittent, and has lasted for 3 Months. Interventions tried include Medication. . She was last seen in orthopaedic clinic for her hand/finger on 12/10/2022 with Miguelito Wong. Most recent hand imaging was completed on 09/11/2022 (XR HAND GENERAL 3V PA/LAT/OBL RIGHT) . The most recent injection was Small Joint Arthro/Inj: R long MCP, injected on 12/10/2022 by Miguelito Wong. In the past (based on all medication history on file), Germán has tried the following anti-inflammatory medications (not necessarily for this reason for visit): betamethasone acetate,sod phos, dexamethasone sodium phosphate, methylprednisolone acetate, naproxen, prednisone, triamcinolone acetonide. Last XR Hand/Finger - Impression Only XR HAND GENERAL 3V PA/LAT/OBL RIGHT Exam End: 09/09/2022 8:23 AM (Final result) Impression: IMPRESSION: Mild osteoarthritis. 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 Orthopaedic Injections (up to last 5) Some values may be hidden. Unless noted otherwise, only the newest values recorded on each date are displayed. Orthopaedic Injection History 04/22/22 05/27/22 09/10/22 12/10/22 12/25/22 Location long finger knee long finger long finger knee Knee Site L knee joint bilateral knee joints Long Finger Site R long MCP R long MCP R long MCP Medication - Right 80 mg triamcinolone acetonide 40 mg/mL Medication - Left 80 mg triamcinolone acetonide 40 mg/mL Medication 40 mg triamcinolone acetonide 40 mg/mL 80 mg triamcinolone acetonide 40 mg/mL 3 mg betamethasone acetate-betamethasone sodium phosphate 6 mg/mL 3 mg betamethasone acetate-betamethasone sodium phosphate 6 mg/mL EXAMINATION Ortho Exam Right hand MCP long finger TTP - no radicular pain. No other painful joints of the hand today. documented in this encounter [facility] 03-25-2023 Miscellaneous Notes Please see other encounter. documented in this encounter [facility] 03-18-2023 Miscellaneous Notes [facility] Zuleima Helms documented in this encounter [facility] 03-15-2023 Miscellaneous Notes called in and states she received a letter from insurance stating stress echo was denied by insurance and requires an appeal from provider. [facility] e-mail was also sent to . Myah Watson LPN documented in this encounter [facility] 03-09-2023 Miscellaneous Notes Phentermine prior auth submitted via cover my meds Oma Fitzgerald MA documented in this encounter [facility] 03-08-2023 Note HNO ID: [id number] Author: Kaelyn Fish MD Service: ? Author Type: Physician Type: Progress Notes Filed: 03/08/2023 2:30 PM Note Text: RHEUMATOLOGY PROGRESS NOTE Patient is here for a follow up visit for Patient presents with: Joint Pain: Right hand, left knee HPI: Germán Martinez is a 58 year old female who presents joint pain, RA She was On Ozempic.now on trulicity. Doing well. Denies NSAIDs. Just taking Flexeril. Just recovered from covid Arava Has swelling in MCP 3 right. May need another inj by ortho. Thumb surgery [facility] 1 left- doing well, in OT, some residual numbness, working on this No red eyes, doing well. Had covid booster- did well. Brief Rheumatological history - She was diagnosed with RA in 2012. Had symptoms of foot pain several years prior to that. She was seen by Dr. Amador Sterling did not help. She had weird sensation with inj. Plaquenil caused rash. She also tried several other medications which did not help. cannot remember the names She was unable to follow up due to insurance conflicts. She took turmeric. Never been on infusions. Not been on RA meds since 3 years. After covid shot she noticed more pain in joints, redness in eyes and redness in legs. Hand swelling. She was diagnosed with Episcleritis, treated with steroids. That helped with hand swelling and she was able to make a fist. Patient with chronic hives. Notes from previous chills. Patient has been on Treximet 12.5 mg once a week, folic acid 2 mg, Xeljanz, tramadol 50 mg 3 times a day as needed. She underwent fusion of right midfoot. Had MRI of right shoulder. She follows up with Dr. WHELAN. Pain management doctor [facility] stopped hydroxychloroquine due to rash Tylenol and ibuprofen did not negative rheumatoid for the liver showing fatty liver. Coexisting fibromyalgia. Vectra score in 1999 1555 showing high disease activity. She had syncope and fell Right ankle injury, surgery 5 years ago Family history of autoimmune disease: grandmother with RA, colitis Smoking status: Tobacco Use: .25 packs/day, for 25 years. Types: Cigarettes (2-3 packs a week) Interval Review of Systems CONSTITUTIONAL: Recent Weight change: No Fever: No EYES: Dryness in nose: No Dryness of mouth: No Oral ulcers: No CARDIOVASCULAR: Pain in chest: No RESPIRATORY: Shortness of breath: No Cough: No GASTROINTESTINAL: Nausea: No Vomiting: No Changes in bowel movements: No Jaundice: No Heartburn: No MUSCULOSKELETAL: Per HPI INTEGUMENTARY: Rash: No HEMATOLOGIC/LYMPHATIC: Anemia: No NEUROLOGICAL SYSTEM: Headaches: No Sensitivity or pain of hands and/or feet: No PSYCHIATRIC: Anxiety: No Poor sleep: No PAST MEDICAL HISTORY Diagnosis Date Cervical stenosis of spine states receives injections every 4 months HLD (hyperlipidemia) HTN (hypertension) Obesity DUNG (obstructive sleep apnea) Prediabetes Rheumatoid arthritis (HCC) Unspecified hypothyroidism PAST SURGICAL HISTORY Procedure Laterality Date ARTHRP INTERPOS INTERCARPAL/METACARPAL JOINTS Left 06/18/2021 Left thumb CMC arthroplasy with LRTI and percutaneous pinning left thumb MCPJ CONIZATION CERVIX W/WO DANDC RPR ELTRD EXC 09/20/1997 LEEP-Cervix SLING OPER STRES INCONTINENCE 09/20/2001 TONSILLECTOMY PRIMARY/SECONDARY Tonsillectomy History Review: I have reviewed and modified as needed, the following during this visit: Allergies, Past Medical History, Past Surgical History, Past Family History, Past Social History. BP 139/73 Pulse 82 Temp 36.8 ?C (98.2 ?F) (Temporal) Ht 165.1 cm (5' 5 ) Wt 93.5 kg (206 lb 1.6 oz) LMP (LMP Unknown) SpO2 98% BMI 34.30 kg/m? Physical Exam GENERAL: Well appearing, alert, comfortable, in no acute distress, well-hydrated, well nourished. HEENT: Negative for external ears normal. Canals are clear. Both TMs visualized and are normal. Eye Exam normal. External nose normal, no nasal ulcer or throat ulcer. NECK: NECK Supple, no adenopathy; thyroid symmetric, normal size, no bruits CARDIAC: regular rate and rhythm, No murmur asculated., and Equal peripheral pulses RESPIRATORY: Lungs clear to auscultation. No wheezing, rhonchi, rales VASCULAR: RRR without murmur, gallop, or rubs. No ectopy. NEURO: Motor and sensory exam normal MOTOR: Normal; including tone, gait, stressed gait, power and coordination. SKIN: Negative for alopecia, skin rash, malar rash, skin lesion, skin ulcer, pits, thickening, color changes, telangiectasias, nail changes, nail ridging, nail pitting, onycholysis MUSCULOSKELETAL: DIPS: Normal PIPS: Normal MCPs: Abnormal, right mcp 3 swelling Wrists: Normal Elbows: Normal Shoulders: Normal C-Spine: Normal Hips: Normal Knees: Abnormal, left knee in brace Ankles: Normal MTPs / Toes: Normal Arches: Normal Lab Results: Glucose 91 01/25/2023 ALT 23 01/25/2023 WBC 8.54 01/25/2023 Hemog (more content not included)... [facility] 03-08-2023 Instructions Kaelyn Fish MD - 03/08/2023 2:19 PM EDT Cell count on knee fluid documented in this encounter [facility] 03-08-2023 History of Present illness Narrative RHEUMATOLOGY PROGRESS NOTE Patient is here for a follow up visit for Patient presents with: Joint Pain: Right hand, left knee HPI: Germán Martinez is a 58 year old female who presents joint pain, RA She was On Ozempic.now on trulicity. Doing well. Denies NSAIDs. Just taking Flexeril. Just recovered from covid Arava Has swelling in MCP 3 right. May need another inj by ortho. Thumb surgery [facility] 1 left- doing well, in OT, some residual numbness, working on this No red eyes, doing well. Had covid booster- did well. Brief Rheumatological history - She was diagnosed with RA in 2012. Had symptoms of foot pain several years prior to that. She was seen by Dr. Amador Sterling did not help. She had weird sensation with inj. Plaquenil caused rash. She also tried several other medications which did not help. cannot remember the names She was unable to follow up due to insurance conflicts. She took turmeric. Never been on infusions. Not been on RA meds since 3 years. After covid shot she noticed more pain in joints, redness in eyes and redness in legs. Hand swelling. She was diagnosed with Episcleritis, treated with steroids. That helped with hand swelling and she was able to make a fist. Patient with chronic hives. Notes from previous chills. Patient has been on Treximet 12.5 mg once a week, folic acid 2 mg, Xeljanz, tramadol 50 mg 3 times a day as needed. She underwent fusion of right midfoot. Had MRI of right shoulder. She follows up with Dr. WHELAN. Pain management doctor [facility] stopped hydroxychloroquine due to rash Tylenol and ibuprofen did not negative rheumatoid for the liver showing fatty liver. Coexisting fibromyalgia. Vectra score in 1999 1555 showing high disease activity. She had syncope and fell Right ankle injury, surgery 5 years ago Family history of autoimmune disease: grandmother with RA, colitis Smoking status: Tobacco Use: .25 packs/day, for 25 years. Types: Cigarettes (2-3 packs a week) Interval Review of Systems CONSTITUTIONAL: Recent Weight change: No Fever: No EYES: Dryness in nose: No Dryness of mouth: No Oral ulcers: No CARDIOVASCULAR: Pain in chest: No RESPIRATORY: Shortness of breath: No Cough: No GASTROINTESTINAL: Nausea: No Vomiting: No Changes in bowel movements: No Jaundice: No Heartburn: No MUSCULOSKELETAL: Per HPI INTEGUMENTARY: Rash: No HEMATOLOGIC/LYMPHATIC: Anemia: No NEUROLOGICAL SYSTEM: Headaches: No Sensitivity or pain of hands and/or feet: No PSYCHIATRIC: Anxiety: No Poor sleep: No PAST MEDICAL HISTORY Diagnosis Date Cervical stenosis of spine states receives injections every 4 months HLD (hyperlipidemia) HTN (hypertension) Obesity DUNG (obstructive sleep apnea) Prediabetes Rheumatoid arthritis (HCC) Unspecified hypothyroidism PAST SURGICAL HISTORY Procedure Laterality Date ARTHRP INTERPOS INTERCARPAL/METACARPAL JOINTS Left 06/18/2021 Left thumb CMC arthroplasy with LRTI and percutaneous pinning left thumb MCPJ CONIZATION CERVIX W/WO D&C RPR ELTRD EXC 09/20/1997 LEEP-Cervix SLING OPER STRES INCONTINENCE 09/20/2001 TONSILLECTOMY PRIMARY/SECONDARY <AGE 12 09/20/1969 Tonsillectomy History Review: I have reviewed and modified as needed, the following during this visit: Allergies, Past Medical History, Past Surgical History, Past Family History, Past Social History. BP 139/73 Pulse 82 Temp 36.8 C (98.2 F) (Temporal) Ht 165.1 cm (5' 5 ) Wt 93.5 kg (206 lb 1.6 oz) LMP (LMP Unknown) SpO2 98% BMI 34.30 kg/m Physical Exam GENERAL: Well appearing, alert, comfortable, in no acute distress, well-hydrated, well nourished. HEENT: Negative for external ears normal. Canals are clear. Both TMs visualized and are normal. Eye Exam normal. External nose normal, no nasal ulcer or throat ulcer. NECK: NECK Supple, no adenopathy; thyroid symmetric, normal size, no bruits CARDIAC: regular rate and rhythm, No murmur asculated., and Equal peripheral pulses RESPIRATORY: Lungs clear to auscultation. No wheezing, rhonchi, rales VASCULAR: RRR without murmur, gallop, or rubs. No ectopy. NEURO: Motor and sensory exam normal MOTOR: Normal; including tone, gait, stressed gait, power and coordination. SKIN: Negative for alopecia, skin rash, malar rash, skin lesion, skin ulcer, pits, thickening, color changes, telangiectasias, nail changes, nail ridging, nail pitting, onycholysis MUSCULOSKELETAL: DIPS: Normal PIPS: Normal MCPs: Abnormal, right mcp 3 swelling Wrists: Normal Elbows: Normal Shoulders: Normal C-Spine: Normal Hips: Normal Knees: Abnormal, left knee in brace Ankles: Normal MTPs / Toes: Normal Arches: Normal Lab Results: Glucose 91 01/25/2023 ALT 23 01/25/2023 WBC 8.54 01/25/2023 Hemoglobin 12.4 01/25/2023 Platelet Count 315 01/25/2023 Serology: Radiology: IMPRESSION: SEVERE MEDIAL COMPARTMENT OSTEOARTHRITIS WITH SUBCHONDRAL TRABECULAR IMPACTION AND MENISCAL TEAR. Assessment and Plan (M06.9) Rheumatoid arthritis involving multiple sites, unspecified whether rheumatoid factor present (HCC) (primary encounter diagnosis) (M25.50) Pain in joint, multiple sites (Z79.899) High risk medication use 57-year-old female with prior diagnosis of seronegative rheumatoid arthritis, fibromyalgia, osteoarthritis is here to establish care. Patient was on multiple immunosuppressive medication and reports lack of benefit. She also has pain due to osteoarthritis and had several surgeries in the past. Recent episode started in bilateral hands along with swelling concerning for synovitis, improvement with prednisone, episcleritis treated with steroids, rash in lower extremities after Covid vaccination. She has not been on immunosuppression for last 3 years. Her presentation is concerning for rheumatoid arthritis. Also discussed about different etiologies of pain in her including osteoarthritis and fibromyalgia which does not respond to immunosuppression. May consider combination treatment going forward. Short course of steroids. She reports h/o insulin resistance. Trying to lose weight. Seeing obesity medicine, on medication to help. Pain currently due to OA. Gets injections right MCP 3 and right knee. Recent XR shows OA left knee, seeing ortho soon, may need inj as well RA seems stable. Labs every 3 months. Continue Arava. Bump in creatinine when she was taking Mobic. Improved when she stopped per the patient. Still active RA in hand. Would like to add Enbrel. Had inadequate response and adverse reaction to Humira. Risks and benefits explained. Office Visit on 03/08/23 CBC + DIFF COMP METABOLIC PANEL VITAMIN D 25 HYDROXY No orders of the defined types were placed in this encounter. No follow-ups on file. Kaelyn Fish MD documented in this encounter [facility] 03-08-2023 Miscellaneous Notes Called LVM To make 1 month follow up with documented in this encounter [facility] 03-08-2023 Note HNO ID: [id number] Author: Yen Abernathy MD Service: ? Author Type: Physician Type: Progress Notes Filed: 03/08/2023 12:49 PM Note Text: Yen Abernathy MD [facility] [address] [facility], [address] [facility] - Fourth Floor [place] [address] This Team Access Model visit is a virtual visit due to COVID -19 Pandemic . It required patient-provider interaction for the medical decision making as documented below. Consent was obtained to complete today's distance health visit. I have communicated my name and active licensure. The patient's identity and physical location were verified at the time of this visit. Either the patient or their legal credit and collections representative has been informed of the risks and benefits of -- and alternatives to -- treatment through a remote evaluation and consents to proceed with the evaluation remotely. Germán Martinez is a 57 year old female with PMH of DUNG, hypothyroidism, RA, hypertension, prediabetes* here today for a follow up on her weight loss efforts. She is currently taking the prescription weight loss medication Trulicity, off label Concerns: --She has been able to tolerate Trulicity better. Currently only taking 0.75 recommended can increase to 1.5 mg -Still strulling with cravings stopped Topamax: as she is developing cataract / cognitive side effects ozempic no longer covered Trulicity : acne on her face no other rash any where else discussed today about trying Trulicity again that the rash on her face/acne on her face could be from some other reason. Patient is agreeable to try Trulicity again. Recommended to inject Trulicity when the injection is going temperature. -- Was seen by fitting room operator for abnormal EKG has been scheduled for stress dobutamine test. She is continuing with diet changes: yes -Main focus of dietary changes: Stop snacking and grazing/getting 70 oz of water /but still struggling with cravings since off of Ozempic. She is continuing with exercise changes: yes -Exercise routine bike ride : 30 mins 3 days a week Weight training Running around around behind 4 kids HR : up to 115 denies chest pain No chest pain with activities Weights Goal weight:150 pound Review of weight loss medication side effects Any GI upset? no Changes to blood pressure? no Visual Changes: no -- Patient reports some suppression of her appetite and increase in satiety since starting the medication Diet: Protein shake And protein with each meals Has been very consistent with her meals. Spacing her meals Though has noticed that at times her snacking been an issue Sleep: Good Stress: Coping better Smoking/Alcohol -denies Review of Systems Constitutional: Negative for malaise/fatigue. HENT: Negative for congestion and tinnitus. Eyes: Negative for blurred vision. Respiratory: Negative for shortness of breath. Cardiovascular: Negative for palpitations, orthopnea and leg swelling. Gastrointestinal: Negative for heartburn, nausea and vomiting. Genitourinary: Negative for dysuria and frequency. Musculoskeletal: Negative for back pain and joint pain. Neurological: Negative for weakness. Psychiatric/Behavioral: The patient does not have insomnia. No previous history of pancreatitis No personal or family history of medullary thyroid cancer No Family history of MEN syndrome S/p thyroid radiation??no cancer VITALS: Ht 162.6 cm (5' 4 ) Wt 91.6 kg (202 lb) LMP (LMP Unknown) BMI 34.67 kg/m? , Body mass index is 34.67 kg/m?. Physical Exam Constitutional:. --no issues with communication HEENT: Normocephalic and atraumatic. Eyes: Conjunctiva appear normal. No scleral icterus. Hearing: Is grossly intact. Neck: Range of motion appears normal. Thyroid: appears symmetric and not enlarged. Pulmonary/Chest: Effort normal. Psychiatric: Mood, memory, affect and judgment normal. Neurological: alert and oriented to person, place, and time. Impression and Plan: ASSESSMENT/PLAN: 1. Class 3 severe obesity with serious comorbidity in adult, unspecified BMI, unspecified obesity type (HCC) - ICD9: 278.01, ICD10: E66.01 (primary diagnosis) Weight increasing since off of Ozempic. --She has been struggling with increased hunger and cravings. Currently she has been exercising with increased heart rate very low risk for ischemia. She has been scheduled for dobutamine test. But since she is struggling we decided to add phentermine very low-dose as patient is agreeable to the medication. She would like to try phentermine recommended to start with half pill every other day before increasing the medication to every day. - Pharmacological intervention and - Behavioral and pharmacological intervention --She is also under a lot of anxiety is struggling with her grandkids custody/but has been coping better. -- counseled in length ,recommended Low carb /low sugar diet (more content not included)... [facility] 03-08-2023 Instructions Yen Abernathy MD - 03/08/2023 10:43 AM EDT Images from the original note were not included. TRYING TO LOSE WEIGHT? Your Body mass index is 34.67 kg/m . (Target BMI: 19-25) A person with a BMI between 25 and 29.9 is considered overweight A person with a BMI of 30 or greater is considered to be obese SETTING A WEIGHT LOSS GOAL: Last 5 Encounter Wt Readings: Date: Wt: 03/08/2023 91.6 kg (202 lb) 02/12/2023 91.2 kg (201 lb) 02/09/2023 91.2 kg (201 lb) 01/25/2023 91.9 kg (202 lb 9.6 oz) 11/27/2022 86.2 kg (190 lb) Lose 10% of body weight over six months, about 1-2 lbs per week LIFESTYLE CHANGES -- The goals of lifestyle changes are to help you change your eating habits, become more active, and be more aware of how much you eat and exercise, helping you to make healthier choices. This can be broken down into three steps: 1. Triggers to eat -- Determining what triggers you to eat involves figuring out what foods you eat and where and when you eat. To figure out what triggers you to eat, keep a record for a few days of everything you eat, the places where you eat, how often you eat, and the emotions you were feeling when you ate. For some people, the trigger is related to a certain time of day or night. For others, the trigger is related to a certain place, like sitting at a desk working. 2. Eating -- You can change your eating habits by breaking the chain of events between the trigger for eating and eating itself. There are many ways to do this. For instance, you can: Limit where you eat to a few places (eg, dining room) Restrict the number of utensils (eg, only a fork) used for eating Drink a sip of water between each bite Chew your food a certain number of times Get up and stop eating every few minutes 3. What happens after you eat -- Rewarding yourself for good eating behaviors can help you to develop better habits. This is not a reward for weight loss; instead, it is a reward for changing unhealthy behaviors. Do not use food as a reward. Some people find money, clothing, or personal care (eg, a hair cut, manicure, or massage) to be effective rewards. Treat yourself immediately after making better eating choices to reinforce the value of the good behavior. You need to have clear behavior goals, and you must have a time frame for reaching your goals. Reward small changes along the way to your final goal. Other factors that contribute to successful weight loss -- Establish a luanne system -- Having a friend or family member available to provide support and reinforce good behavior is very helpful. The support person needs to understand your goals. Learn to be strong -- Learning to be strong when tempted by food is an important part of losing weight. As an example, you will need to learn how to say no and continue to say no when urged to eat at parties and social gatherings. Develop strategies for events before you go, such as eating before you go or taking low-calorie snacks and drinks with you. Develop a support system -- Having a support system is helpful when losing weight. This is why many commercial groups are successful. Family support is also essential; if your family does not support your efforts to lose weight, this can slow your progress or even keep you from losing weight. Positive thinking -- People often have conversations with themselves in their head; these conversations can be positive or negative. If you eat a piece of cake that was not planned, you may respond by thinking, Oh, you stupid idiot, you've blown your diet! and as a result, you may eat more cake. A positive thought for the same event could be, Well, I ate cake when it was not on my plan. Now I should do something to get back on track. A positive approach is much more likely to be successful than a negative one. Reduce stress -- Although stress is a part of everyday life, it can trigger uncontrolled eating in some people. It is important to find a way to get through these difficult times without eating or by eating low-calorie food, like raw vegetables. It may be helpful to imagine a relaxing place that allows you to temporarily escape from stress. With deep breaths and closed eyes, you can imagine this relaxing place for a few minutes. Self-help programs -- Self-help programs like Weight Watchers , Overeaters Anonymous , and Take Off Pounds Sensibly (TOPS) work for some people. As with all weight loss programs, you are most likely to be successful with these plans if you make long-term changes in how you eat. CHOOSING A DIET -- A calorie is a unit of energy found in food. Your body needs calories to function. The goal of any diet is to burn up more calories than you eat. How quickly you lose weight depends upon several factors, such as your age, gender, and starting weight. Older people have a slower metabolism than young people, so they lose weight more slowly. Men lose more weight than women of similar height and weight when dieting because they use more energy. People who are extremely overweight lose weight more quickly than those who are only mildly overweight. How many calories do I need? -- You can estimate the number of calories you need per day based upon your current (or target) weight, gender, and activity level for women and for men. In general, it is best to choose foods that contain enough protein, carbohydrates, essential fatty acids, and vitamins. Try not to drink alcohol or drinks with added sugar, and most sweets (candy, cakes, cookies), since they rarely contain important nutrients. Portion-controlled diets -- One simple way to diet is to buy packaged foods, like frozen low-calorie meals or meal-replacement canned drinks. A typical meal plan for 1000 to 1500 calories per day may include: A meal-replacement drink or breakfast bar for breakfast A meal-replacement drink or a frozen low-calorie (250 to 350 calories) meal for lunch A frozen low-calorie meal or other prepackaged, calorie-controlled meal, along with extra vegetables for dinner Low-fat diet -- To reduce the amount of fat in your diet, you can: Eat low-fat foods. Low-fat foods are those that contain less than 30 percent of calories from fat. Fat is listed on the food facts label Count fat grams. For a 1500 calorie diet, this would mean about 45 g or fewer of fat per day. Low-carbohydrate diet -- Low- and jbol-fuo-ovakmpfcdids diets (eg, Atkins diet, [employer] diet) have become popular ways to lose weight quickly. With a mcas-fqf-qlncivvgcuka diet, you eat between 0 and 60 grams of carbohydrates per day (a standard diet contains 200 to 300 grams of carbohydrates) With a low-carbohydrate diet, you eat between 60 and 130 grams of carbohydrates per day Carbohydrates are found in fruits, vegetables, and grains (including breads, rice, pasta, and cereal), alcoholic beverages, and in dairy products. Meat and fish do not contain carbohydrates. Side effects of oajn-nmh-jefqamlbvkvr diets can include constipation, headache, bad breath, muscle cramps, diarrhea, and weakness. Mediterranean diet -- The term Mediterranean diet refers to a way of eating that is common in olive-growing regions around the [place] Sea. Although there is some variation in Mediterranean diets, there are some similarities. Most Mediterranean diets include: A high level of monounsaturated fats (from olive or canola oil, walnuts, pecans, almonds) and a low level of saturated fats (from butter) A high amount of vegetables, fruits, legumes, and grains (7 to 10 servings of fruits and vegetables per day) A moderate amount of milk and dairy products, mostly in the form of cheese. Use low-fat dairy products (skim milk, fat-free yogurt, low-fat cheese). A relatively low amount of red meat and meat products. Substitute fish or poultry for red meat. For those who drink alcohol, a modest amount (mainly as red wine) may help to protect against cardiovascular disease. A modest amount is up to one (4 ounce) glass per day for women and up to two glasses per day for men. Which diet is best? -- No one diet is best for weight loss. Any diet will help you to lose weight if you stick with the diet. Therefore, it is important to choose a diet that includes foods you like. Fad diets -- Fad diets often promise quick weight loss (more than 1 to 2 pounds per week) and may claim that you do not need to exercise or give up favorite foods. Some fad diets cost a lot of money, because you have to pay for seminars or pills. Fad diets generally lack any scientific evidence that they are safe and effective, but instead rely on before and after photos or testimonials. Diets that sound too good to be true usually are. These plans are a waste of time and money and are not recommended. A doctor, nurse, or wood heel fitter machine can help you find a safe and effective way to lose weight and keep it off. Adapted from [facility] My opinion 3 hour Rule: -last meal /snack 3 hours before sleeping ,but mostly try to be done by 7 pm --eat Rich Breakfast, high in protein hard boiled eggs/protein drinks - At least 3 hours break between each meals ,except water --sleep 7 hours at night , that means going to bed early -- drink only water ( no soda or juices) /no Alcohol consumption --cut down on coffee consumption if consuming high amounts Website :You can visit to web site for low carb recipe information as well as visual guide to low carb food: Https://www.dietExtremis Technologyor.nuMVC/ ( visual guide for low carb diet) Limit carb consumption to 80- 100 grams per day. Goals: formal exercise 2-5 x/week as tolerated, start with 10 mins/day to goal of 30 minutes ( -- for exercise, you should shoot for a goal of >150 min per week initially. Depending at what level you are starting, that may seem like an unachievable task. However, the best plan is to just begin to walk or bike or do another activity that you like and track your steps per day. You do not need to pay attention to the time, but you do need to try to increase your exercise every 3 weeks. Other strength exercises, using light weights or training bands may also be useful, especially when combined with regular aerobic exercise. Studies have shown that >200min per week is best to maintain weight loss, so that would be the overall end goal.) Have 3 meals a day-protein source with each meal (structured meal planning) Food journal daily and bring it to all appointments If you want you can REPLACE one of your meals with a liquid meal or frozen meal. This is easy to start and may help with your weight. 1. Liquid meal replacement (Boost, Ensure) 2. Frozen meal (Healthy Choice, Lean Cuisine - sodium under 650mg, can always add veggies to the meal) 3. Powdered protein (Premier Protein) or meal replacement (I like a plant based meal replacement called Healthy [employer] - can mix w froz berries and almond milk) -- IN GENERAL - suggestions based on important of our sleep cycle called circadian rhythm and its influence on our gut microbiota and overall health tragetory 1) EAT MOST OF YOUR FOOD IN AM AND EARLY PM 2) NO EATING AT NIGHT 3) EXERCISE DURING DAY 4) BE CONSISTENT WITH MEAL STRUCTURE ie Meals at same time during the day. -- keep record of your food intake - it is easier for us to understand your eating habits and food preferences, looking into the amounts of protein, carbs, and fat in your diet. Good examples of apps to track calories are [employer]ix[employer]PAL, LOSE IT. Some patient have found FOODUCATE to help with decisions around food, however choose apps that best suits you. PHENTERMINE Rule 4731-07-24 was amended and in effect as of 11/17/22 making phentermine extermination inspector Rx for obesity. Monthly visits will no longer be required. -- Please start phentermine low dose (1/2 tablet) in the morning everyday as discussed. We can adjust the dose if needed, that is if you are feeling some side effects you can either stop all together or decrease to 1/4 tablet. But we can review its effect when you return. -- Please monitor your blood pressure (either purchase BP cuff, or go to pharmacy to check your BP at a local pharmacy). Please avoid any stimulants (in the form of caffeinated beverages like coffee, tea, sports drinks) and caution with decongestants. -- -- Phentermine is not safe during . ? Phentermine (fen ter meen) What are the common names? Adipex-P, Ionamin Why is this medication prescribed? Phentermine was approved by the FDA in 1958 for short term weight loss. It works by decreasing appetite. Phentermine is absorbed by the body and travels to the appetite center of the brain. It works by helping you feel less hungry, less driven to eat, more satisfied with less food. I ve heard about fen-phen. Will phentermine affect my heart? The two drug combination fenfluramine/phentermine, usually called fen-phen, became popular in the early as a diet pill. However, it was withdrawn by the FDA in late 1996 after studies which showed that fenfluramine can cause fatal pulmonary hypertension and heart valve problems. Phentermine is not a combination medication and does not contain the compound fenfluramine. What special precautions should I follow? Before having phentermine prescribed, tell your doctor and pharmacist: If you have allergies to any component of phentermine If you are , plan to become , are breast-feeding, or if you become while taking phentermine What are the absolute contraindications? Stroke or Transient Ischemic Attacks Cardiac arrhythmias or Atrial fibrillation Coronary artery disease Seizure Disorder Uncontrolled blood pressure Angina Congestive Heart Failure Valvular Heart Disease or primary pulmonary hypertension Drug interactions. Use of monamine oxidase inhibitors (MAOI s) What are the side effects of phentermine? Immediately discontinue the medicine and seek medical help if you have severe symptoms such as chest pain, shortness of breath, feeling faint, ability to think clearly, eye pain or other visual symptoms: Palpitations (strong or rapid heartbeat) Difficulty sleeping or falling asleep Elevated blood pressure Dry mouth Anxiety or agitation Getting a stimulant/or hyper effect or jitteriness-(Usually goes away after a few days or weeks) Glaucoma In case of emergency/overdose In case of overdose, call your local poison control center at or call local emergency services at [phone]. What other information should I know? Keep all appointments with your doctor and the laboratory. Do not let anyone else take your medication. Phentermine is a controlled substance. It is FDA approved for up to 3 months. Prescriptions may be refilled only a limited number of times. Keep a written list of all of your prescription and nonprescription (kzkh-apb-bsdtcsr) medicines, in addition to vitamins, minerals, or other dietary supplements. If you are taking the extended-release (long-acting) tablets, do not split, chew, or crush them tablet. There are some tablets that can be crushed and mixed with food Alcohol can make the side effects of phentermine worse How should I monitor while on this medication? Please check your blood pressure (BP) and resting pulse weekly (twice a week in the first 2 weeks). If the BP is over 140/90 (either one), or if the resting pulse is over 96 per minute (count for 10 seconds and multiply by 6), then stop the medication and call your doctor. Continue to improve your dietary and physical activity habits as the combination works best while on this medication. Start out by taking the medication in the morning at least 30 minutes prior to meals. If the effect seems to wear off by dinner time, try taking it later in the morning, but taking too late may result in trouble falling asleep. Be sure to eat regular meals. Less hunger does not make it appropriate to skip meals. Monitor your caffeine intake and use of decongestants as they may worsen the effects of phentermine Make sure to have an eye exam, including the pressure in your eyes (intra-ocular pressure), once a year. What should I do if I forget a dose? Skip the missed dose and continue your regular dosing schedule the next day. Do not take a double dose to make up for a missed one. Sources [facility] Consumer Medication Info: http://www.IEMO.nlm.nih.gov/pubmed health/ACV8340426/ AMA patient handouts: http://www.amaassn.org/ama1/pub/up load/mm/433/phrxsurgery.pdf Drugs.com: http://www.drugs.com/pro/phentermi ne.html documented in this encounter [facility] 03-08-2023 History of Present illness Narrative Images from the original note were not included. Yen Abernathy MD [facility] Center [address] [place] [address], [facility] [address] [place] [address] This Team Access Model visit is a virtual visit due to COVID -19 Pandemic . It required patient-provider interaction for the medical decision making as documented below. Consent was obtained to complete today's distance health visit. I have communicated my name and active licensure. The patient's identity and physical location were verified at the time of this visit. Either the patient or their legal credit and collections representative has been informed of the risks and benefits of -- and alternatives to -- treatment through a remote evaluation and consents to proceed with the evaluation remotely. Germán Martinez is a 57 year old female with PMH of DUNG, hypothyroidism, RA, hypertension, prediabetes* here today for a follow up on her weight loss efforts. She is currently taking the prescription weight loss medication Trulicity, off label Concerns: --She has been able to tolerate Trulicity better. Currently only taking 0.75 recommended can increase to 1.5 mg -Still strulling with cravings stopped Topamax: as she is developing cataract / cognitive side effects ozempic no longer covered Trulicity : acne on her face no other rash any where else discussed today about trying Trulicity again that the rash on her face/acne on her face could be from some other reason. Patient is agreeable to try Trulicity again. Recommended to inject Trulicity when the injection is going temperature. -- Was seen by fitting room operator for abnormal EKG has been scheduled for stress dobutamine test. She is continuing with diet changes: yes -Main focus of dietary changes: Stop snacking and grazing/getting 70 oz of water /but still struggling with cravings since off of Ozempic. She is continuing with exercise changes: yes -Exercise routine bike ride : 30 mins 3 days a week Weight training Running around around behind 4 kids HR : up to 115 denies chest pain No chest pain with activities Weights Goal weight:150 pound Review of weight loss medication side effects Any GI upset? no Changes to blood pressure? no Visual Changes: no -- Patient reports some suppression of her appetite and increase in satiety since starting the medication Diet: Protein shake And protein with each meals Has been very consistent with her meals. Spacing her meals Though has noticed that at times her snacking been an issue Sleep: Good Stress: Coping better Smoking/Alcohol -denies Review of Systems Constitutional: Negative for malaise/fatigue. HENT: Negative for congestion and tinnitus. Eyes: Negative for blurred vision. Respiratory: Negative for shortness of breath. Cardiovascular: Negative for palpitations, orthopnea and leg swelling. Gastrointestinal: Negative for heartburn, nausea and vomiting. Genitourinary: Negative for dysuria and frequency. Musculoskeletal: Negative for back pain and joint pain. Neurological: Negative for weakness. Psychiatric/Behavioral: The patient does not have insomnia. No previous history of pancreatitis No personal or family history of medullary thyroid cancer No Family history of MEN syndrome S/p thyroid radiation??no cancer VITALS: Ht 162.6 cm (5' 4 ) Wt 91.6 kg (202 lb) LMP (LMP Unknown) BMI 34.67 kg/m , Body mass index is 34.67 kg/m . Physical Exam Constitutional:. --no issues with communication HEENT: Normocephalic and atraumatic. Eyes: Conjunctiva appear normal. No scleral icterus. Hearing: Is grossly intact. Neck: Range of motion appears normal. Thyroid: appears symmetric and not enlarged. Pulmonary/Chest: Effort normal. Psychiatric: Mood, memory, affect and judgment normal. Neurological: alert and oriented to person, place, and time. Impression and Plan: ASSESSMENT/PLAN: 1. Class 3 severe obesity with serious comorbidity in adult, unspecified BMI, unspecified obesity type (HCC) - ICD9: 278.01, ICD10: E66.01 (primary diagnosis) Weight increasing since off of Ozempic. --She has been struggling with increased hunger and cravings. Currently she has been exercising with increased heart rate very low risk for ischemia. She has been scheduled for dobutamine test. But since she is struggling we decided to add phentermine very low-dose as patient is agreeable to the medication. She would like to try phentermine recommended to start with half pill every other day before increasing the medication to every day. - Pharmacological intervention and - Behavioral and pharmacological intervention --She is also under a lot of anxiety is struggling with her grandkids custody/but has been coping better. -- counseled in length ,recommended Low carb /low sugar diet --managing maladaptive eating behaviors and adding resistance exercise. Continue low carb diet, weights/cardio exercise and increase NEAT. --Topamax was stopped by his community health worker due to possible risk of cataract development per pt/cognitive side effects -Ozempic no longer covered Tolerating Trulicity well. -I have also reviewed he possibility of using weight loss medications in an effort to reduce her appetite. I have reviewed the different therapeutic options available including We have also reviewed the possibility of using on her medications such as metformin which has been also associated with weight loss. We agreed that trying Phentermine could be her best option at this point. I reviewed with the patient pros and cons of taking this medication. I have also asked her check her blood pressure twice a week over the next 2 weeks and let me know if he goes over 150/100. PDMP website checked and validated. All prescriptions have been APPROPRIATELY filled. No suspicious activity was identified. 03/08/2023 by Yen Abernathy MD 2. Mixed hyperlipidemia - ICD9: 272.2, ICD10: E78.2 - suboptimal control - Encouraged following a low fat, low cholesterol diet. 3. Dietary counseling and surveillance - ICD9: V65.3, ICD10: Z71.3 Reviewed principles of energy metabolism, caloric intake and expenditure, and rationale for treatment program. Also reinforced need for reduced calorie, low fat diet and increased physical activity. 4. Primary hypertension - ICD9: 401.9, ICD10: I10 - Improved control. --Recommended to monitor blood pressure at home. - Continue current medication(s) - Recommended regular aerobic exercise. - Recommend home blood pressure monitoring, to bring results in on next visit - Goal of BP <130/80 5. DUNG (obstructive sleep apnea) - ICD9: 327.23, ICD10: G47.33 Counseled on using her CPAP regularly. 6. Acquired hypothyroidism - ICD9: 244.9, ICD10: E03.9 - Instructed patient on importance of taking on an empty stomach either first thing in the morning or at bedtime. 7. Obstructive sleep apnea syndrome - ICD9: 327.23, ICD10: G47.33 Counseled on using her CPAP regularly. 8. Hypothyroidism, unspecified type - ICD9: 244.9, ICD10: E03.9 - Instructed patient on importance of taking on an empty stomach either first thing in the morning or at bedtime. 9. Prediabetes - ICD9: 790.29, ICD10: R73.03 -Has been tolerating metformin 10. BMI >40 BMI around 34.7 -- counseled in length ,recommended Low carb /low sugar diet --managing maladaptive eating behaviors and adding resistance exercise. Continue low carb diet, weights/cardio exercise and increase NEAT. Yen Abernathy MD Her weight-related medical comorbidities are improving with weight loss. She is doing well otherwise, continues lifestyle modification. She remains motivated to lose weight. Reviewed principles of energy metabolism, caloric intake and expenditure, and rationale for treatment program. Also reinforced need for reduced calorie, low fat diet and increased physical activity. Yen Abernathy MD Some elements were copied from my last note, which have been updated where appropriate, and all reflect current medical decision making from TODAY History Review: I have reviewed and modified as needed, the following during this visit: Allergies, Past Medical History, Past Surgical History, Past Family History, Past Social History. Counseling Visit 22 minutes for preventive counseling/IBT Screening for obesity completed during initial plan of care. Patient was competent and alert at the time that counseling was provided. 5a's reviewed: Assess- I assessed behavioral health risk/factors affecting --- Asked about/assess behavioral health risk(s) and factors affecting choice of behavior change goals -insulin resistance/metabolic syndrome: Unfortunately Ozempic no longer covered Though able to tolerate Trulicity better recommended to increase Trulicity to 1.5 mg. Several stressors working on her [email or web address] custody -Increased hunger cravings Discussed adding phentermine if dobutamine stress test is negative Advise: clear, specific, personalized behavior change advice. -I gave very clear, specific, and personalized behavior change adviced, including information about personal health harms and benefits. Agree: Patient agrees with selected appropriate treatment goals and methods to change behavior Assist:provided IBT w self-help, handouts, teaching skills and support Using behavior change techniques with self-help and Counseling in achieving Goals. Also discussed supplementing with adjunctive medical treatments when appropriate. Arrange- follow up scheduled, Handouts given to patient My opinion -- 3 hour Rule -last meal /snack 3 hours before sleeping ,try to be done by 7 pm --eat Rich Breakfast - At Least 3 hours break between each meals ,except water --sleep 7 hours at night , that means going to bed early -- drink only water ( no soda or juices) /no Alcohol consumption --cut down on coffee consumption if consuming high amounts Website :You can visit to web site for low carb recipe information as well as visual guide to low carb food: [employer] Limit carb consumption to 80- 100 grams per day. Goals: formal exercise 2-5 x/week as tolerated, start with 10 mins/day to goal of 30 minutes Have 3 meals a day-protein source with each meal (structured meal planning) Food journal daily and bring it to all appointments -- IN GENERAL - suggestions based on important of our sleep cycle called circadian rhythm and its influence on our gut microbiota and overall health tragetory 1) EAT MOST OF YOUR FOOD IN AM AND EARLY PM 2) NO EATING AT NIGHT 3) EXERCISE DURING DAY 4) BE CONSISTENT WITH MEAL STRUCTURE ie Meals at same time during the day. -- keep record of your food intake - it is easier for us to understand your eating habits and food preferences, looking into the amounts of protein, carbs, and fat in your diet. Good examples of apps to track calories are MyFITTrellis BiosciencePAL, LOSE IT. Some patient have found FOODUCATE to help with decisions around food, however choose apps that best suits you. -- for exercise, you should shoot for a goal of >150 min per week initially. Depending at what level you are starting, that may seem like an unachievable task. However, the best plan is to just begin to walk or bike or do another activity that you like and track your steps per day. You do not need to pay attention to the time, but you do need to try to increase your exercise every 3 weeks. Other strength exercises, using light weights or training bands may also be useful, especially when combined with regular aerobic exercise. Studies have shown that >200min per week is best to maintain weight loss, so that would be the overall end goal. -- One option we discussed is to REPLACE one of your meals with a liquid meal or frozen meal. This is easy to start and may help with your weight. 1. Liquid meal replacement (Boost, Ensure) 2. Frozen meal (Healthy Choice, Lean Cuisine - sodium under 650mg, can always add veggies to the meal) 3. Powdered protein (Premier Protein) or meal replacement (I like a plant based meal replacement called [employer] - can mix w froz berries and almond milk) This note was partially generated using Zyncro voice recognition system, and there may be some incorrect words, spellings, and punctuation that were not noted in checking the note before saving History Review: I have reviewed and modified as needed, the following during this visit: Allergies, Past Medical History, Past Surgical History, Past Family History, Past Social History. History Review: I have reviewed and modified as needed, the following during this visit: Allergies, Past Medical History, Past Surgical History, Past Family History, Past Social History. documented in this encounter [facility] 03-02-2023 Note HNO ID: [id number] Author: Yen Abernathy MD Service: ? Author Type: Physician Type: Progress Notes Filed: 03/02/2023 10:44 AM Note Text: History Review: I have reviewed and modified as needed, the following during this visit: Allergies, Past Medical History, Past Surgical History, Past Family History, Past Social History. [facility] 02-12-2023 Note HNO ID: [id number] Author: Yen Abernathy MD Service: ? Author Type: Physician Type: Progress Notes Filed: 02/12/2023 9:07 AM Note Text: [facility] [facility] [address] [facility], [address] [facility] - Fourth Floor [place] [address] This Team Access Model visit is a virtual visit due to COVID -19 Pandemic . It required patient-provider interaction for the medical decision making as documented below. Consent was obtained to complete today's distance health visit. I have communicated my name and active licensure. The patient's identity and physical location were verified at the time of this visit. Either the patient or their legal credit and collections representative has been informed of the risks and benefits of -- and alternatives to -- treatment through a remote evaluation and consents to proceed with the evaluation remotely. Germán Martinez is a 57 year old female with PMH of DUNG, hypothyroidism, RA, hypertension, prediabetes* here today for a follow up on her weight loss efforts. She is currently taking the prescription weight loss medication Trulicity, off label Concerns: -- She states that her life has been very busy taking care of her grandkids/fighting for custody. stopped Topamax: as she is developing cataract / cognitive side effects ozempic no longer covered Trulicity : acne on her face no other rash any where else discussed today about trying Trulicity again that the rash on her face/acne on her face could be from some other reason. Patient is agreeable to try Trulicity again. Recommended to inject Trulicity when the injection is going temperature. -- Was seen by fitting room operator for abnormal EKG has been scheduled for stress dobutamine test. She is continuing with diet changes: yes -Main focus of dietary changes: Stop snacking and grazing/getting 70 oz of water /but still struggling with cravings since off of Ozempic. She is continuing with exercise changes: yes -Exercise routine bike ride : 30 mins 3 days a week No chest pain with activities Weights Goal weight:150 pound Review of weight loss medication side effects Any GI upset? no Changes to blood pressure? no Visual Changes: no -- Patient reports some suppression of her appetite and increase in satiety since starting the medication Diet: Protein shake And protein with each meals Has been very consistent with her meals. Spacing her meals Though has noticed that at times her snacking been an issue Sleep: Good Stress: Coping better Smoking/Alcohol -denies Review of Systems Constitutional: Negative for malaise/fatigue. HENT: Negative for congestion and tinnitus. Eyes: Negative for blurred vision. Respiratory: Negative for shortness of breath. Cardiovascular: Negative for palpitations, orthopnea and leg swelling. Gastrointestinal: Negative for heartburn, nausea and vomiting. Genitourinary: Negative for dysuria and frequency. Musculoskeletal: Negative for back pain and joint pain. Neurological: Negative for weakness. Psychiatric/Behavioral: The patient does not have insomnia. No previous history of pancreatitis No personal or family history of medullary thyroid cancer No Family history of MEN syndrome S/p thyroid radiation??no cancer VITALS: Ht 162.6 cm (5' 4 ) Wt 91.2 kg (201 lb) LMP (LMP Unknown) BMI 34.50 kg/m? , Body mass index is 34.5 kg/m?. Physical Exam Constitutional:. --no issues with communication HEENT: Normocephalic and atraumatic. Eyes: Conjunctiva appear normal. No scleral icterus. Hearing: Is grossly intact. Neck: Range of motion appears normal. Thyroid: appears symmetric and not enlarged. Pulmonary/Chest: Effort normal. Psychiatric: Mood, memory, affect and judgment normal. Neurological: alert and oriented to person, place, and time. Impression and Plan: ASSESSMENT/PLAN: 1. Class 3 severe obesity with serious comorbidity in adult, unspecified BMI, unspecified obesity type (HCC) - ICD9: 278.01, ICD10: E66.01 (primary diagnosis) Weight increasing since off of Ozempic. --She tried Trulicity but noticed some acne after trying Trulicity so stopped taking it. Unsure if that was reaction from Trulicity or not but she is agreeable to try Trulicity again. After dobutamine stress test has ruled out obstructive CAD we can try phentermine as well. Germán is agreeable to this plan. Reviewed fitting room operator note. - Pharmacological intervention and - Behavioral and pharmacological intervention --She is also under a lot of anxiety is struggling with her grandkids custody/but has been coping better. -- counseled in length ,recommended Low carb /low sugar diet --managing maladaptive eating behaviors and adding resistance exercise. Continue low carb diet, weights/cardio exercise and increase NEAT. --Topamax was stopped by his community health worker due to possible risk of cataract development per pt/cognitiv (more content not included)... [facility] 02-09-2023 Note HNO ID: [id number] Author: Iain Monson MD Service: ? Author Type: Physician Type: Progress Notes Filed: 02/09/2023 2:04 PM Note Text: Chief Complaint Patient presents with: New Patient: CAD ref by Josemanuel History of Present Illness: Germán Martinez is a 57 year old female with hx of HTN, HLD, DUNG, RA and Obesity. Pt. Presents for one episode of numbness around perioral area, notes started exercise 7 wks, started using an exercise bike and was able to tolerate it well apart from one episode about 1 mo ago. She notes sxs lasted a few mins and resolved spotaneously. She was able to walk at moderate pace upto 3 miles, until she developed L knee pain. She notes no trouble with chest pain, palptiation, orthopnea, PND or LE edema. She denies any significant limitation in activity, notes having hx of cardiac murmur and reports having TTE >10 yrs ago. Denies any use of Tobacco, regular ETOH or recreational substance use. PAST MEDICAL HISTORY Diagnosis Date Cervical stenosis of spine states receives injections every 4 months HLD (hyperlipidemia) HTN (hypertension) Obesity DUNG (obstructive sleep apnea) Prediabetes Rheumatoid arthritis (HCC) Unspecified hypothyroidism PAST SURGICAL HISTORY Procedure Laterality Date ARTHRP INTERPOS INTERCARPAL/METACARPAL JOINTS Left 06/18/2021 Left thumb CMC arthroplasy with LRTI and percutaneous pinning left thumb MCPJ CONIZATION CERVIX W/WO DANDC RPR ELTRD EXC 09/20/1997 LEEP-Cervix SLING OPER STRES INCONTINENCE 09/20/2001 TONSILLECTOMY PRIMARY/SECONDARY Tonsillectomy FAMILY HISTORY Problem Relation Age of Onset Diabetes Father Kidney Disease Father Only had 1 kidney Diabetes Mother Hypertension Mother Diabetes Maternal Grandmother Stroke Paternal Grandfather Social History Tobacco Use Smoking status: Former Packs/day: 0.25 Years: 25.00 Pack years: 6.25 Types: Cigarettes Quit date: 2007 Years since quittin.4 Smokeless tobacco: Never Tobacco comments: 2-3 packs a week Vaping Use Vaping Use: Never used Substance Use Topics Alcohol use: Yes Comment: very rare Drug use: No ALLERGIES Allergen Reactions Codeine Vomiting Duloxetine Other: See Comments Hydroxychloroquine Rash Meloxicam Other: See Comments Kidney function elevated Tapazole [[place]* Rash Vicodin [Hydrocodon* Itching Medications: Current Outpatient Medications Medication Sig Dispense Refill FA/mv,Ca,iron,min/lycopene/lut (MULTIVITAL ORAL) Take 1 tablet by mouth once daily. metFORMIN ER (GLUCOPHAGE XR) 500 mg 24 hr tablet Take 2 tablets by mouth daily with breakfast. 180 tablet 0 leflunomide (ARAVA) 20 mg tablet Take 1 tablet by mouth once daily. 30 tablet 11 simvastatin (ZOCOR) 20 mg tablet Take 20 mg by mouth once daily. potassium chloride (K-TAB) 10 mEq tablet as needed. Only takes if takes hydrochlorothiazide Cholecalciferol, Vitamin D3, 25 mcg (1,000 unit) cap Take 1,000 Units by mouth once daily. amLODIPine (NORVASC) 10 mg tablet Take 10 mg by mouth once daily. cyclobenzaprine (FLEXERIL) 10 mg tablet Take 5 mg by mouth at bedtime as needed. hydroCHLOROthiazide 12.5 mg capsule Take 12.5 mg by mouth as needed. lisinopril (ZESTRIL, PRINIVIL) 20 mg tablet Take 1 tablet by mouth once daily. levothyroxine (SYNTHROID) 75 mcg tablet Take 75 mcg by mouth once daily. 0 dulaglutide (TRULICITY) 0.75 mg/0.5 mL pen injector Inject 0.75 mg subcutaneously one time a week. (Patient not taking: No sig reported) 2 mL 1 predniSONE (DELTASONE) 10 mg tablet 6 tabs po day 1, then 5 tabs day 2, 4 tabs day 3, 3 tabs day 4, 2 tabs day 5, 1 tab day 6. (Patient not taking: No sig reported) 21 tablet 0 No current facility-administered medications for this visit. Review of Systems Constitutional: Negative for diaphoresis, malaise/fatigue and weight loss. HENT: Negative for congestion and nosebleeds. Eyes: Negative for blurred vision and double vision. Respiratory: Negative for cough, sputum production, shortness of breath and stridor. Cardiovascular: Negative for chest pain, palpitations, orthopnea, claudication, leg swelling and PND. Gastrointestinal: Negative for abdominal pain, blood in stool, constipation, diarrhea, heartburn, melena and nausea. Genitourinary: Negative for frequency and urgency. Musculoskeletal: Positive for joint pain. Negative for falls and myalgias. Skin: Negative for rash. Neurological: Negative for dizziness, tingling, tremors, sensory change, speech change, weakness and headaches. Endo/Heme/Allergies: Does not bruise/bleed easily. Psychiatric/Behavioral: Negative for memory loss. The patient does not have insomnia. Physical Examination: Vitals:BP 131/68 Pulse 97 Ht 5' 4 (1.63m) Wt 201 lb (91.2kg) SpO2 98% BMI 34.48 kg/(m2). BP w/Orthostatic Vitals Date and Time Orthostatic BP Orthostatic Pulse BP Pulse BP Position BP Site BP Cuff Size 05/2 (more content not included)... [facility] 01-29-2023 Miscellaneous Notes Patient informed. Cardiology referral was faxed however I did give the patient their number as well. Leena Dee MA No bad findings on EKG but can have her see a fitting room operator before starting phentermine Phone call from patient stating she is concerned with her EKG result. She states she was looking on the Internet and has questions about this and with her medications. Leena Dee MA documented in this encounter [facility] 01-25-2023 Note HNO ID: [id number] Author: Yen Abernathy MD Service: ? Author Type: Physician Type: Progress Notes Filed: 01/25/2023 3:57 PM Note Text: Yen Abernathy MD [facility] [address] [facility], [address] [facility] - Fourth Floor [place] [address] Germán Martinez is a 57 year old female with PMH of DUNG, hypothyroidism, RA, hypertension, prediabetes* here today for a follow up on her weight loss efforts. She is currently taking the prescription weight loss medication Ozempic, off label Concerns: stopped Topamax: as she is developing cataract / cognitive side effects ozempic no longer covered Trulicity : acne on her face /hives. She is continuing with diet changes: yes -Main focus of dietary changes: Stop snacking and grazing/getting 70 oz of water She is continuing with exercise changes: yes -Exercise routine bike ride : 30 mins 3 days a week No chest pain with activities Weights Goal weight:150 pound Review of weight loss medication side effects Any GI upset? no Changes to blood pressure? no Visual Changes: no -- Patient reports some suppression of her appetite and increase in satiety since starting the medication Diet: Protein shake And protein with each meals Has been very consistent with her meals. Spacing her meals denies any snacking or grazing. Sleep: Good Stress: Coping better Smoking/Alcohol -denies Review of Systems Constitutional: Negative for malaise/fatigue. HENT: Negative for congestion and tinnitus. Eyes: Negative for blurred vision. Respiratory: Negative for shortness of breath. Cardiovascular: Negative for palpitations, orthopnea and leg swelling. Gastrointestinal: Negative for heartburn, nausea and vomiting. Genitourinary: Negative for dysuria and frequency. Musculoskeletal: Negative for back pain and joint pain. Neurological: Negative for weakness. Psychiatric/Behavioral: The patient does not have insomnia. No previous history of pancreatitis No personal or family history of medullary thyroid cancer No Family history of MEN syndrome S/p thyroid radiation??no cancer VITALS: LMP (LMP Unknown) , There is no height or weight on file to calculate BMI. Physical Exam Constitutional:. --no issues with communication HEENT: Normocephalic and atraumatic. Eyes: Conjunctiva appear normal. No scleral icterus. Hearing: Is grossly intact. Neck: Range of motion appears normal. Thyroid: appears symmetric and not enlarged. Pulmonary/Chest: Effort normal. Psychiatric: Mood, memory, affect and judgment normal. Neurological: alert and oriented to person, place, and time. Impression and Plan: ASSESSMENT/PLAN: 1. Class 3 severe obesity with serious comorbidity in adult, unspecified BMI, unspecified obesity type (HCC) - ICD9: 278.01, ICD10: E66.01 (primary diagnosis) Weight increasing since off of Ozempic. - Pharmacological intervention and - Behavioral and pharmacological intervention --She is also under a lot of anxiety is struggling with her grandkids custody. -- counseled in length ,recommended Low carb /low sugar diet --managing maladaptive eating behaviors and adding resistance exercise. Continue low carb diet, weights/cardio exercise and increase NEAT. --Topamax was stopped by his community health worker due to possible risk of cataract development per pt/cognitive side effects -Ozempic no longer covered Trulicity caused side effect so had to stop taking it. Discussed use of phentermine in near future recommended to get an EKG done. Also may add zonisamide. Patient was provided information. An order for EKG placed. 2. Mixed hyperlipidemia - ICD9: 272.2, ICD10: E78.2 - suboptimal control - Encouraged following a low fat, low cholesterol diet. 3. Dietary counseling and surveillance - ICD9: V65.3, ICD10: Z71.3 Reviewed principles of energy metabolism, caloric intake and expenditure, and rationale for treatment program. Also reinforced need for reduced calorie, low fat diet and increased physical activity. 4. Primary hypertension - ICD9: 401.9, ICD10: I10 - Improved control. --Recommended to monitor blood pressure at home. - Continue current medication(s) - Recommended regular aerobic exercise. - Recommend home blood pressure monitoring, to bring results in on next visit - Goal of BP <130/80 5. DUNG (obstructive sleep apnea) - ICD9: 327.23, ICD10: G47.33 Counseled on using her CPAP regularly. 6. Acquired hypothyroidism - ICD9: 244.9, ICD10: E03.9 - Instructed patient on importance of taking on an empty stomach either first thing in the morning or at bedtime. 7. Obstructive sleep apnea syndrome - ICD9: 327.23, ICD10: G47.33 Counseled on using her CPAP regularly. 8. Hypothyroidism, unspecified type - ICD9: 244.9, ICD10: E03.9 - Instructed patient on importance of taking on an empty stomach either first thing in the morning or at bedtime. 9. Predia (more content not included)... [facility] 01-25-2023 Instructions Yen Abernathy MD - 01/25/2023 2:08 PM EDT Images from the original note were not included. TRYING TO LOSE WEIGHT? Your Body mass index is 34.78 kg/m . (Target BMI: 19-25) A person with a BMI between 25 and 29.9 is considered overweight A person with a BMI of 30 or greater is considered to be obese SETTING A WEIGHT LOSS GOAL: Last 5 Encounter Wt Readings: Date: Wt: 01/25/2023 91.9 kg (202 lb 9.6 oz) 11/27/2022 86.2 kg (190 lb) 08/27/2022 93.9 kg (207 lb) 06/10/2022 97.1 kg (214 lb) 05/18/2022 99.8 kg (220 lb) Lose 10% of body weight over six months, about 1-2 lbs per week LIFESTYLE CHANGES -- The goals of lifestyle changes are to help you change your eating habits, become more active, and be more aware of how much you eat and exercise, helping you to make healthier choices. This can be broken down into three steps: 1. Triggers to eat -- Determining what triggers you to eat involves figuring out what foods you eat and where and when you eat. To figure out what triggers you to eat, keep a record for a few days of everything you eat, the places where you eat, how often you eat, and the emotions you were feeling when you ate. For some people, the trigger is related to a certain time of day or night. For others, the trigger is related to a certain place, like sitting at a desk working. 2. Eating -- You can change your eating habits by breaking the chain of events between the trigger for eating and eating itself. There are many ways to do this. For instance, you can: Limit where you eat to a few places (eg, dining room) Restrict the number of utensils (eg, only a fork) used for eating Drink a sip of water between each bite Chew your food a certain number of times Get up and stop eating every few minutes 3. What happens after you eat -- Rewarding yourself for good eating behaviors can help you to develop better habits. This is not a reward for weight loss; instead, it is a reward for changing unhealthy behaviors. Do not use food as a reward. Some people find money, clothing, or personal care (eg, a hair cut, manicure, or massage) to be effective rewards. Treat yourself immediately after making better eating choices to reinforce the value of the good behavior. You need to have clear behavior goals, and you must have a time frame for reaching your goals. Reward small changes along the way to your final goal. Other factors that contribute to successful weight loss -- Establish a luanne system -- Having a friend or family member available to provide support and reinforce good behavior is very helpful. The support person needs to understand your goals. Learn to be strong -- Learning to be strong when tempted by food is an important part of losing weight. As an example, you will need to learn how to say no and continue to say no when urged to eat at parties and social gatherings. Develop strategies for events before you go, such as eating before you go or taking low-calorie snacks and drinks with you. Develop a support system -- Having a support system is helpful when losing weight. This is why many commercial groups are successful. Family support is also essential; if your family does not support your efforts to lose weight, this can slow your progress or even keep you from losing weight. Positive thinking -- People often have conversations with themselves in their head; these conversations can be positive or negative. If you eat a piece of cake that was not planned, you may respond by thinking, Oh, you stupid idiot, you've blown your diet! and as a result, you may eat more cake. A positive thought for the same event could be, Well, I ate cake when it was not on my plan. Now I should do something to get back on track. A positive approach is much more likely to be successful than a negative one. Reduce stress -- Although stress is a part of everyday life, it can trigger uncontrolled eating in some people. It is important to find a way to get through these difficult times without eating or by eating low-calorie food, like raw vegetables. It may be helpful to imagine a relaxing place that allows you to temporarily escape from stress. With deep breaths and closed eyes, you can imagine this relaxing place for a few minutes. Self-help programs -- Self-help programs like Weight Watchers , Overeaters Anonymous , and Take Off Pounds Sensibly (TOPS) work for some people. As with all weight loss programs, you are most likely to be successful with these plans if you make long-term changes in how you eat. CHOOSING A DIET -- A calorie is a unit of energy found in food. Your body needs calories to function. The goal of any diet is to burn up more calories than you eat. How quickly you lose weight depends upon several factors, such as your age, gender, and starting weight. Older people have a slower metabolism than young people, so they lose weight more slowly. Men lose more weight than women of similar height and weight when dieting because they use more energy. People who are extremely overweight lose weight more quickly than those who are only mildly overweight. How many calories do I need? -- You can estimate the number of calories you need per day based upon your current (or target) weight, gender, and activity level for women and for men. In general, it is best to choose foods that contain enough protein, carbohydrates, essential fatty acids, and vitamins. Try not to drink alcohol or drinks with added sugar, and most sweets (candy, cakes, cookies), since they rarely contain important nutrients. Portion-controlled diets -- One simple way to diet is to buy packaged foods, like frozen low-calorie meals or meal-replacement canned drinks. A typical meal plan for 1000 to 1500 calories per day may include: A meal-replacement drink or breakfast bar for breakfast A meal-replacement drink or a frozen low-calorie (250 to 350 calories) meal for lunch A frozen low-calorie meal or other prepackaged, calorie-controlled meal, along with extra vegetables for dinner Low-fat diet -- To reduce the amount of fat in your diet, you can: Eat low-fat foods. Low-fat foods are those that contain less than 30 percent of calories from fat. Fat is listed on the food facts label Count fat grams. For a 1500 calorie diet, this would mean about 45 g or fewer of fat per day. Low-carbohydrate diet -- Low- and mxns-wzd-xqpkbvuramtb diets (eg, Atkins diet, [employer] diet) have become popular ways to lose weight quickly. With a uoow-zeb-onhqhurhowvh diet, you eat between 0 and 60 grams of carbohydrates per day (a standard diet contains 200 to 300 grams of carbohydrates) With a low-carbohydrate diet, you eat between 60 and 130 grams of carbohydrates per day Carbohydrates are found in fruits, vegetables, and grains (including breads, rice, pasta, and cereal), alcoholic beverages, and in dairy products. Meat and fish do not contain carbohydrates. Side effects of becl-fqz-talqgefgfkin diets can include constipation, headache, bad breath, muscle cramps, diarrhea, and weakness. Mediterranean diet -- The term Mediterranean diet refers to a way of eating that is common in olive-growing regions around the [place]. Although there is some variation in Mediterranean diets, there are some similarities. Most Mediterranean diets include: A high level of monounsaturated fats (from olive or canola oil, walnuts, pecans, almonds) and a low level of saturated fats (from butter) A high amount of vegetables, fruits, legumes, and grains (7 to 10 servings of fruits and vegetables per day) A moderate amount of milk and dairy products, mostly in the form of cheese. Use low-fat dairy products (skim milk, fat-free yogurt, low-fat cheese). A relatively low amount of red meat and meat products. Substitute fish or poultry for red meat. For those who drink alcohol, a modest amount (mainly as red wine) may help to protect against cardiovascular disease. A modest amount is up to one (4 ounce) glass per day for women and up to two glasses per day for men. Which diet is best? -- No one diet is best for weight loss. Any diet will help you to lose weight if you stick with the diet. Therefore, it is important to choose a diet that includes foods you like. Fad diets -- Fad diets often promise quick weight loss (more than 1 to 2 pounds per week) and may claim that you do not need to exercise or give up favorite foods. Some fad diets cost a lot of money, because you have to pay for seminars or pills. Fad diets generally lack any scientific evidence that they are safe and effective, but instead rely on before and after photos or testimonials. Diets that sound too good to be true usually are. These plans are a waste of time and money and are not recommended. A doctor, nurse, or wood heel fitter machine can help you find a safe and effective way to lose weight and keep it off. Adapted from [facility] My opinion 3 hour Rule: -last meal /snack 3 hours before sleeping ,but mostly try to be done by 7 pm --eat Rich Breakfast, high in protein hard boiled eggs/protein drinks - At least 3 hours break between each meals ,except water --sleep 7 hours at night , that means going to bed early -- drink only water ( no soda or juices) /no Alcohol consumption --cut down on coffee consumption if consuming high amounts Website :You can visit to web site for low carb recipe information as well as visual guide to low carb food: Https://www.dietExtremis Technologyor.nuMVC/ ( visual guide for low carb diet) Limit carb consumption to 80- 100 grams per day. Goals: formal exercise 2-5 x/week as tolerated, start with 10 mins/day to goal of 30 minutes ( -- for exercise, you should shoot for a goal of >150 min per week initially. Depending at what level you are starting, that may seem like an unachievable task. However, the best plan is to just begin to walk or bike or do another activity that you like and track your steps per day. You do not need to pay attention to the time, but you do need to try to increase your exercise every 3 weeks. Other strength exercises, using light weights or training bands may also be useful, especially when combined with regular aerobic exercise. Studies have shown that >200min per week is best to maintain weight loss, so that would be the overall end goal.) Have 3 meals a day-protein source with each meal (structured meal planning) Food journal daily and bring it to all appointments If you want you can REPLACE one of your meals with a liquid meal or frozen meal. This is easy to start and may help with your weight. 1. Liquid meal replacement (Boost, Ensure) 2. Frozen meal (Healthy Choice, Lean Cuisine - sodium under 650mg, can always add veggies to the meal) 3. Powdered protein (Premier Protein) or meal replacement (I like a plant based meal replacement called Healthy Skoop Nutrition - can mix w froz berries and almond milk) -- IN GENERAL - suggestions based on important of our sleep cycle called circadian rhythm and its influence on our gut microbiota and overall health tragetory 1) EAT MOST OF YOUR FOOD IN AM AND EARLY PM 2) NO EATING AT NIGHT 3) EXERCISE DURING DAY 4) BE CONSISTENT WITH MEAL STRUCTURE ie Meals at same time during the day. -- keep record of your food intake - it is easier for us to understand your eating habits and food preferences, looking into the amounts of protein, carbs, and fat in your diet. Good examples of apps to track calories are PernixDataPAL, LOSE IT. Some patient have found FOODUCATE to help with decisions around food, however choose apps that best suits you. PHENTERMINE Rule 4731-07-24 was amended and in effect as of 11/17/22 making phentermine intermediate Rx for obesity. Monthly visits will no longer be required. -- Please start phentermine low dose (1/2 tablet) in the morning everyday as discussed. We can adjust the dose if needed, that is if you are feeling some side effects you can either stop all together or decrease to 1/4 tablet. But we can review its effect when you return. -- Please monitor your blood pressure (either purchase BP cuff, or go to pharmacy to check your BP at a local pharmacy). Please avoid any stimulants (in the form of caffeinated beverages like coffee, tea, sports drinks) and caution with decongestants. -- -- Phentermine is not safe during . ? Phentermine (fen ter meen) What are the common names? Adipex-P, Ionamin Why is this medication prescribed? Phentermine was approved by the FDA in 1958 for short term weight loss. It works by decreasing appetite. Phentermine is absorbed by the body and travels to the appetite center of the brain. It works by helping you feel less hungry, less driven to eat, more satisfied with less food. I ve heard about fen-phen. Will phentermine affect my heart? The two drug combination fenfluramine/phentermine, usually called fen-phen, became popular in the early as a diet pill. However, it was withdrawn by the FDA in late 1996 after studies which showed that fenfluramine can cause fatal pulmonary hypertension and heart valve problems. Phentermine is not a combination medication and does not contain the compound fenfluramine. What special precautions should I follow? Before having phentermine prescribed, tell your doctor and pharmacist: If you have allergies to any component of phentermine If you are , plan to become , are breast-feeding, or if you become while taking phentermine What are the absolute contraindications? Stroke or Transient Ischemic Attacks Cardiac arrhythmias or Atrial fibrillation Coronary artery disease Seizure Disorder Uncontrolled blood pressure Angina Congestive Heart Failure Valvular Heart Disease or primary pulmonary hypertension Drug interactions. Use of monamine oxidase inhibitors (MAOI s) What are the side effects of phentermine? Immediately discontinue the medicine and seek medical help if you have severe symptoms such as chest pain, shortness of breath, feeling faint, ability to think clearly, eye pain or other visual symptoms: Palpitations (strong or rapid heartbeat) Difficulty sleeping or falling asleep Elevated blood pressure Dry mouth Anxiety or agitation Getting a stimulant/or hyper effect or jitteriness-(Usually goes away after a few days or weeks) Glaucoma In case of emergency/overdose In case of overdose, call your local poison control center at or call local emergency services at [phone]. What other information should I know? Keep all appointments with your doctor and the laboratory. Do not let anyone else take your medication. Phentermine is a controlled substance. It is FDA approved for up to 3 months. Prescriptions may be refilled only a limited number of times. Keep a written list of all of your prescription and nonprescription (wnxr-mbm-preksnu) medicines, in addition to vitamins, minerals, or other dietary supplements. If you are taking the extended-release (long-acting) tablets, do not split, chew, or crush them tablet. There are some tablets that can be crushed and mixed with food Alcohol can make the side effects of phentermine worse How should I monitor while on this medication? Please check your blood pressure (BP) and resting pulse weekly (twice a week in the first 2 weeks). If the BP is over 140/90 (either one), or if the resting pulse is over 96 per minute (count for 10 seconds and multiply by 6), then stop the medication and call your doctor. Continue to improve your dietary and physical activity habits as the combination works best while on this medication. Start out by taking the medication in the morning at least 30 minutes prior to meals. If the effect seems to wear off by dinner time, try taking it later in the morning, but taking too late may result in trouble falling asleep. Be sure to eat regular meals. Less hunger does not make it appropriate to skip meals. Monitor your caffeine intake and use of decongestants as they may worsen the effects of phentermine Make sure to have an eye exam, including the pressure in your eyes (intra-ocular pressure), once a year. What should I do if I forget a dose? Skip the missed dose and continue your regular dosing schedule the next day. Do not take a double dose to make up for a missed one. Sources [facility] Consumer Medication Info: http://www.ncbi.nlm.nih.gov/pubmed health/UWH3729441/ AMA patient handouts: http://www.amaassn.org/ama1/pub/up load/mm/433/phrxsurgery.pdf Drugs.com: http://www.drugs.com/pro/phentermi ne.html documented in this encounter [facility] 01-25-2023 History of Present illness Narrative Images from the original note were not included. Yen Abernathy MD [facility] [address] [facility], [address] [facility] - Fourth Floor [place] [address] Germán Martinez is a 57 year old female with PMH of DUNG, hypothyroidism, RA, hypertension, prediabetes* here today for a follow up on her weight loss efforts. She is currently taking the prescription weight loss medication Ozempic, off label Concerns: stopped Topamax: as she is developing cataract / cognitive side effects ozempic no longer covered Trulicity : acne on her face /hives. She is continuing with diet changes: yes -Main focus of dietary changes: Stop snacking and grazing/getting 70 oz of water She is continuing with exercise changes: yes -Exercise routine bike ride : 30 mins 3 days a week No chest pain with activities Weights Goal weight:150 pound Review of weight loss medication side effects Any GI upset? no Changes to blood pressure? no Visual Changes: no -- Patient reports some suppression of her appetite and increase in satiety since starting the medication Diet: Protein shake And protein with each meals Has been very consistent with her meals. Spacing her meals denies any snacking or grazing. Sleep: Good Stress: Coping better Smoking/Alcohol -denies Review of Systems Constitutional: Negative for malaise/fatigue. HENT: Negative for congestion and tinnitus. Eyes: Negative for blurred vision. Respiratory: Negative for shortness of breath. Cardiovascular: Negative for palpitations, orthopnea and leg swelling. Gastrointestinal: Negative for heartburn, nausea and vomiting. Genitourinary: Negative for dysuria and frequency. Musculoskeletal: Negative for back pain and joint pain. Neurological: Negative for weakness. Psychiatric/Behavioral: The patient does not have insomnia. No previous history of pancreatitis No personal or family history of medullary thyroid cancer No Family history of MEN syndrome S/p thyroid radiation??no cancer VITALS: LMP (LMP Unknown) , There is no height or weight on file to calculate BMI. Physical Exam Constitutional:. --no issues with communication HEENT: Normocephalic and atraumatic. Eyes: Conjunctiva appear normal. No scleral icterus. Hearing: Is grossly intact. Neck: Range of motion appears normal. Thyroid: appears symmetric and not enlarged. Pulmonary/Chest: Effort normal. Psychiatric: Mood, memory, affect and judgment normal. Neurological: alert and oriented to person, place, and time. Impression and Plan: ASSESSMENT/PLAN: 1. Class 3 severe obesity with serious comorbidity in adult, unspecified BMI, unspecified obesity type (HCC) - ICD9: 278.01, ICD10: E66.01 (primary diagnosis) Weight increasing since off of Ozempic. - Pharmacological intervention and - Behavioral and pharmacological intervention --She is also under a lot of anxiety is struggling with her grandkids custody. -- counseled in length ,recommended Low carb /low sugar diet --managing maladaptive eating behaviors and adding resistance exercise. Continue low carb diet, weights/cardio exercise and increase NEAT. --Topamax was stopped by his community health worker due to possible risk of cataract development per pt/cognitive side effects -Ozempic no longer covered Trulicity caused side effect so had to stop taking it. Discussed use of phentermine in near future recommended to get an EKG done. Also may add zonisamide. Patient was provided information. An order for EKG placed. 2. Mixed hyperlipidemia - ICD9: 272.2, ICD10: E78.2 - suboptimal control - Encouraged following a low fat, low cholesterol diet. 3. Dietary counseling and surveillance - ICD9: V65.3, ICD10: Z71.3 Reviewed principles of energy metabolism, caloric intake and expenditure, and rationale for treatment program. Also reinforced need for reduced calorie, low fat diet and increased physical activity. 4. Primary hypertension - ICD9: 401.9, ICD10: I10 - Improved control. --Recommended to monitor blood pressure at home. - Continue current medication(s) - Recommended regular aerobic exercise. - Recommend home blood pressure monitoring, to bring results in on next visit - Goal of BP <130/80 5. DUNG (obstructive sleep apnea) - ICD9: 327.23, ICD10: G47.33 Counseled on using her CPAP regularly. 6. Acquired hypothyroidism - ICD9: 244.9, ICD10: E03.9 - Instructed patient on importance of taking on an empty stomach either first thing in the morning or at bedtime. 7. Obstructive sleep apnea syndrome - ICD9: 327.23, ICD10: G47.33 Counseled on using her CPAP regularly. 8. Hypothyroidism, unspecified type - ICD9: 244.9, ICD10: E03.9 - Instructed patient on importance of taking on an empty stomach either first thing in the morning or at bedtime. 9. Prediabetes - ICD9: 790.29, ICD10: R73.03 -Has been tolerating metformin 10. BMI >40 BMI around 34.7 -- counseled in length ,recommended Low carb /low sugar diet --managing maladaptive eating behaviors and adding resistance exercise. Continue low carb diet, weights/cardio exercise and increase NEAT. Yen Abernathy MD Her weight-related medical comorbidities are improving with weight loss. She is doing well otherwise, continues lifestyle modification. She remains motivated to lose weight. Reviewed principles of energy metabolism, caloric intake and expenditure, and rationale for treatment program. Also reinforced need for reduced calorie, low fat diet and increased physical activity. Yen Abernathy MD Some elements were copied from my last note, which have been updated where appropriate, and all reflect current medical decision making from TODAY History Review: I have reviewed and modified as needed, the following during this visit: Allergies, Past Medical History, Past Surgical History, Past Family History, Past Social History. Counseling Visit 22 minutes for preventive counseling/IBT Screening for obesity completed during initial plan of care. Patient was competent and alert at the time that counseling was provided. 5a's reviewed: Assess- I assessed behavioral health risk/factors affecting --- Asked about/assess behavioral health risk(s) and factors affecting choice of behavior change goals -insulin resistance/metabolic syndrome Several stressors working on her grandkids custody -Increased hunger cravings GLP-1's not covered by insurance. Discussed adding phentermine recommended getting an EKG. Advise: clear, specific, personalized behavior change advice. -I gave very clear, specific, and personalized behavior change adviced, including information about personal health harms and benefits. Agree: Patient agrees with selected appropriate treatment goals and methods to change behavior Assist:provided IBT w self-help, handouts, teaching skills and support Using behavior change techniques with self-help and Counseling in achieving Goals. Also discussed supplementing with adjunctive medical treatments when appropriate. Arrange- follow up scheduled, Handouts given to patient My opinion -- 3 hour Rule -last meal /snack 3 hours before sleeping ,try to be done by 7 pm --eat Rich Breakfast - At Least 3 hours break between each meals ,except water --sleep 7 hours at night , that means going to bed early -- drink only water ( no soda or juices) /no Alcohol consumption --cut down on coffee consumption if consuming high amounts Website :You can visit to web site for low carb recipe information as well as visual guide to low carb food: [employer] Limit carb consumption to 80- 100 grams per day. Goals: formal exercise 2-5 x/week as tolerated, start with 10 mins/day to goal of 30 minutes Have 3 meals a day-protein source with each meal (structured meal planning) Food journal daily and bring it to all appointments -- IN GENERAL - suggestions based on important of our sleep cycle called circadian rhythm and its influence on our gut microbiota and overall health tragetory 1) EAT MOST OF YOUR FOOD IN AM AND EARLY PM 2) NO EATING AT NIGHT 3) EXERCISE DURING DAY 4) BE CONSISTENT WITH MEAL STRUCTURE ie Meals at same time during the day. -- keep record of your food intake - it is easier for us to understand your eating habits and food preferences, looking into the amounts of protein, carbs, and fat in your diet. Good examples of apps to track calories are MyFITNESSPAL, LOSE IT. Some patient have found FOODUCATE to help with decisions around food, however choose apps that best suits you. -- for exercise, you should shoot for a goal of >150 min per week initially. Depending at what level you are starting, that may seem like an unachievable task. However, the best plan is to just begin to walk or bike or do another activity that you like and track your steps per day. You do not need to pay attention to the time, but you do need to try to increase your exercise every 3 weeks. Other strength exercises, using light weights or training bands may also be useful, especially when combined with regular aerobic exercise. Studies have shown that >200min per week is best to maintain weight loss, so that would be the overall end goal. -- One option we discussed is to REPLACE one of your meals with a liquid meal or frozen meal. This is easy to start and may help with your weight. 1. Liquid meal replacement (Boost, Ensure) 2. Frozen meal (Healthy Choice, Lean Cuisine - sodium under 650mg, can always add veggies to the meal) 3. Powdered protein (Premier Protein) or meal replacement (I like a plant based meal replacement called [employer] - can mix w froz berries and almond milk) This note was partially generated using Zyncro voice recognition system, and there may be some incorrect words, spellings, and punctuation that were not noted in checking the note before saving History Review: I have reviewed and modified as needed, the following during this visit: Allergies, Past Medical History, Past Surgical History, Past Family History, Past Social History. History Review: I have reviewed and modified as needed, the following during this visit: Allergies, Past Medical History, Past Surgical History, Past Family History, Past Social History. documented in this encounter [facility] 01-06-2023 Miscellaneous Notes Pharmacy sent a [employer] message requesting the following refill. Requested Prescriptions Pending Prescriptions Disp Refills metFORMIN ER (GLUCOPHAGE XR) 500 mg 24 hr tablet 180 tablet 0 Sig: Take 2 tablets by mouth daily with breakfast. Next Appointment: [place] 03/08/23 Patient Phone numbers: [phone] (home) Request is for script(s) to be escript to pharmacy. Fidelina Marinally signed by Fidelina Garay Ma at 01/06/2023 1:24 PM EDT documented in this encounter [facility] 01-01-2023 Miscellaneous Notes Pharmacy requesting the following refill. Requested Prescriptions Pending Prescriptions Disp Refills leflunomide (ARAVA) 20 mg tablet [Pharmacy Med Name: leflunomide 20 mg tablet] 30 tablet 11 Sig: TAKE 1 TABLET BY MOUTH ONCE DAILY. Patient last appointment: 09/07/2022 Next Appointment: 04/19/2023 Patient Phone numbers: [phone] (home) Request is for script(s) to be escript to pharmacy. [facility] [employer] [address] [place] [address] - [address] [facility] - [phone] Katherine Perez LPN documented in this encounter [facility] 12-25-2022 Note HNO ID: [id number] Author: Kym Conrad, DO Service: ? Author Type: Physician Type: Progress Notes Filed: 12/25/2022 9:26 AM Note Text: Large Joint Arthro/Inj: bilateral knee joints Informed Consent Consent Obtained: Verbal Delmita Protocol A moment to CARE was completed. SIGN IN Sign in communication not applicable due to emergent procedure. Personnel directly involved with the procedure wore the appropriate PPE. Special Equipment: N/A Patient/Surrogate Stated/Verified: Patient name, Date of , Relevant allergies and Intended procedure TIME OUT Intended patient and procedure match the source document(s). Relevant labs, photos, and/or imaging studies have been reviewed. Correct side/site marked and visible. Medications required for procedure verified. No fire risk assessment and interventions applicable. No implant(s) inserted. 12/25/2022 9:25 AM The procedure site was prepped in the usual sterile fashion. Site: bilateral knee joints Aspirate (Left): 50 mLMedications (Right): 80 mg triamcinolone acetonide 40 mg/mL Medications (Left): 80 mg triamcinolone acetonide 40 mg/mL Anesthetics (Right): 8 mL BUPivacaine (PF) 0.5 % (5 mg/mL) Anesthetics (Left): 8 mL BUPivacaine (PF) 0.5 % (5 mg/mL) Outcome: Tolerated well, no immediate complications Post-injection instructions were reviewed with the patient and the patient voiced understanding of these instructions. SIGN OUT All instruments, equipment, possible retained foreign bodies accounted for. Follow Up Visit Chief Complaint Germán Martinez is a 57 year old female who presents today for follow up office visit. Patient presents with: Right Knee - Follow Up, Knee Pain Left Knee - Follow Up, Knee Pain History of Present Illness PAIN EVALUATION 12/23/20222026 Pain Level: 6 Description: Stiffness Duration Units: Weeks Frequency: Intermittent Intervention/Comfort measure: Medication Comments: Hard walking down steps HPI: Germán Martinez is a 57 year old female for a follow up visit bilateral knee pain. Patient has been doing well, starting to have more consistent knee pain. Here requesting cortisone injections. She is wearing her windows admin brace which is a little big due to a significant weight loss. Pain history is noted as above. Denies calf pain, numbness, tingling, fever, chills or other constitutional symptoms. Is there any overall improvement in your condition? No Any new injury, since being seen last: No REVIEW OF SYMPTOMS: Patient did not have, and does not currently have, any weight loss, malaise, fever, chills, headache, chest pain, chest pressure, palpitations, cough, shortness of breath, orthopnea, paroxsymal nocturnal dyspnea, nausea, vomiting, diarrhea, constipation, melena, hematochezia, urinary difficulties, prolonged bleeding, easily bruising, heat or cold intolerance, new onset joint pain or swelling, new onset extremity weakness or numbness, new onset auditory or visual disturbances, lightheadedness, dizziness, partial loss of consciousness or full loss of consciousness. Current Outpatient Medications Medication Sig dulaglutide (TRULICITY) 0.75 mg/0.5 mL pen injector Inject 0.75 mg subcutaneously one time a week. simvastatin (ZOCOR) 20 mg tablet Take 20 mg by mouth once daily. predniSONE (DELTASONE) 10 mg tablet 6 tabs po day 1, then 5 tabs day 2, 4 tabs day 3, 3 tabs day 4, 2 tabs day 5, 1 tab day 6. (Patient not taking: No sig reported) metFORMIN ER (GLUCOPHAGE XR) 500 mg 24 hr tablet Take 2 tablets by mouth daily with breakfast. leflunomide (ARAVA) 20 mg tablet Take 1 tablet by mouth once daily. potassium chloride (K-TAB) 10 mEq tablet as needed. Only takes if takes hydrochlorothiazide Cholecalciferol, Vitamin D3, 25 mcg (1,000 unit) cap Take 1,000 Units by mouth once daily. amLODIPine (NORVASC) 10 mg tablet Take 10 mg by mouth once daily. cyclobenzaprine (FLEXERIL) 10 mg tablet Take 5 mg by mouth at bedtime as needed. hydroCHLOROthiazide 12.5 mg capsule Take 12.5 mg by mouth as needed. lisinopril (ZESTRIL, PRINIVIL) 20 mg tablet Take 1 tablet by mouth once daily. levothyroxine (SYNTHROID) 75 mcg tablet Take 75 mcg by mouth once daily. No current facility-administered medications for this visit. Physical Exam Vitals: There were no vitals taken for this visit. Psych: Pleasant, good affect and mood General Appearance: Well appearing, alert, in no acute distress, well-hydrated, well nourished.. Skin: Skin color, texture, turgor normal, no suspicious rashes or lesions. Peripheral Pulses: Normal. Neurologic: Gait normal. Reflexes normal and symmetric. Sensation grossly intact.. Lymph Nodes: No cervical lymphadenopathy, No supraclavicular lymphadenopathy, No axillary lymphadenopathy., and No inguinal lymphadenopathy.. Respiratory: No recent pulmonary infection, hemoptysis, chronic cough, or shortness of breath at rest Rheumatolog (more content not included)... [facility] 12-25-2022 History of Present illness Narrative Associated Order(s): Large Joint Arthro/Inj: bilateral knee joints Post-Procedure Diagnose(s): Arthritis of knee Images from the original note were not included. Large Joint Arthro/Inj: bilateral knee joints Informed Consent Consent Obtained: Verbal Delmita Protocol A moment to CARE was completed. SIGN IN Sign in communication not applicable due to emergent procedure. Personnel directly involved with the procedure wore the appropriate PPE. Special Equipment: N/A Patient/Surrogate Stated/Verified: Patient name, Date of , Relevant allergies and Intended procedure TIME OUT Intended patient and procedure match the source document(s). Relevant labs, photos, and/or imaging studies have been reviewed. Correct side/site marked and visible. Medications required for procedure verified. No fire risk assessment and interventions applicable. No implant(s) inserted. 12/25/2022 9:25 AM The procedure site was prepped in the usual sterile fashion. Site: bilateral knee joints Aspirate (Left): 50 mLMedications (Right): 80 mg triamcinolone acetonide 40 mg/mL Medications (Left): 80 mg triamcinolone acetonide 40 mg/mL Anesthetics (Right): 8 mL BUPivacaine (PF) 0.5 % (5 mg/mL) Anesthetics (Left): 8 mL BUPivacaine (PF) 0.5 % (5 mg/mL) Outcome: Tolerated well, no immediate complications Post-injection instructions were reviewed with the patient and the patient voiced understanding of these instructions. SIGN OUT All instruments, equipment, possible retained foreign bodies accounted for. Follow Up Visit Chief Complaint Germán Martinez is a 57 year old female who presents today for follow up office visit. Patient presents with: Right Knee - Follow Up, Knee Pain Left Knee - Follow Up, Knee Pain History of Present Illness PAIN EVALUATION 12/23/20222026 Pain Level: 6 Description: Stiffness Duration Units: Weeks Frequency: Intermittent Intervention/Comfort measure: Medication Comments: Hard walking down steps HPI: Germán Martinez is a 57 year old female for a follow up visit bilateral knee pain. Patient has been doing well, starting to have more consistent knee pain. Here requesting cortisone injections. She is wearing her windows admin brace which is a little big due to a significant weight loss. Pain history is noted as above. Denies calf pain, numbness, tingling, fever, chills or other constitutional symptoms. Is there any overall improvement in your condition? No Any new injury, since being seen last: No REVIEW OF SYMPTOMS: Patient did not have, and does not currently have, any weight loss, malaise, fever, chills, headache, chest pain, chest pressure, palpitations, cough, shortness of breath, orthopnea, paroxsymal nocturnal dyspnea, nausea, vomiting, diarrhea, constipation, melena, hematochezia, urinary difficulties, prolonged bleeding, easily bruising, heat or cold intolerance, new onset joint pain or swelling, new onset extremity weakness or numbness, new onset auditory or visual disturbances, lightheadedness, dizziness, partial loss of consciousness or full loss of consciousness. Current Outpatient Medications Medication Sig dulaglutide (TRULICITY) 0.75 mg/0.5 mL pen injector Inject 0.75 mg subcutaneously one time a week. simvastatin (ZOCOR) 20 mg tablet Take 20 mg by mouth once daily. predniSONE (DELTASONE) 10 mg tablet 6 tabs po day 1, then 5 tabs day 2, 4 tabs day 3, 3 tabs day 4, 2 tabs day 5, 1 tab day 6. (Patient not taking: No sig reported) metFORMIN ER (GLUCOPHAGE XR) 500 mg 24 hr tablet Take 2 tablets by mouth daily with breakfast. leflunomide (ARAVA) 20 mg tablet Take 1 tablet by mouth once daily. potassium chloride (K-TAB) 10 mEq tablet as needed. Only takes if takes hydrochlorothiazide Cholecalciferol, Vitamin D3, 25 mcg (1,000 unit) cap Take 1,000 Units by mouth once daily. amLODIPine (NORVASC) 10 mg tablet Take 10 mg by mouth once daily. cyclobenzaprine (FLEXERIL) 10 mg tablet Take 5 mg by mouth at bedtime as needed. hydroCHLOROthiazide 12.5 mg capsule Take 12.5 mg by mouth as needed. lisinopril (ZESTRIL, PRINIVIL) 20 mg tablet Take 1 tablet by mouth once daily. levothyroxine (SYNTHROID) 75 mcg tablet Take 75 mcg by mouth once daily. No current facility-administered medications for this visit. Physical Exam Vitals: There were no vitals taken for this visit. Psych: Pleasant, good affect and mood General Appearance: Well appearing, alert, in no acute distress, well-hydrated, well nourished.. Skin: Skin color, texture, turgor normal, no suspicious rashes or lesions. Peripheral Pulses: Normal. Neurologic: Gait normal. Reflexes normal and symmetric. Sensation grossly intact.. Lymph Nodes: No cervical lymphadenopathy, No supraclavicular lymphadenopathy, No axillary lymphadenopathy., and No inguinal lymphadenopathy.. Respiratory: No recent pulmonary infection, hemoptysis, chronic cough, or shortness of breath at rest Rheumatologic: Joint deformities: bilateral knee pain Ortho Exam Assessment and Plan Radiographs: No imaging to review. Impression: Encounter Diagnosis ICD-10-CM 1. Arthritis of knee M17.10 Today, in detail, through a thorough evaluation, we discussed possible etiologies of pain and our plans for further diagnostic and therapeutic interventions. We discussed strategies for decreasing pain and improving strength, stability and motion. Patient's questions were answered in detailed. Patient verbalizes understanding and agrees with the treatment plan as discussed. Discussed with patient possible options for treatment. Patient elected proceed with injection. Patient told not to submerge the injected area for 24 hours in a hot tub, or bath, injection may take 2 weeks for improvement to be noticed, follow-up in 2 -6 weeks if symptoms do not resolve. All questions answered patient agreement of plan. Apply ice Limit activities as discussed Rest Do not submerge limb in water for 24 hours Cont current meds Watch sugars/decrease carbs Call if warm/hot/red Discussed with patient that if the injection does not work after 2 to 4 weeks to come back for reevaluation. Discussed the next 3 days may feel worse before it feels better. Discussed if having continued pain to return. May get injection every 3 months documented in this encounter [facility] 12-16-2022 Miscellaneous Notes Received letter from [facility] informing us that prior authorization for Ozempic has been denied. Per letter coverage is provided when the member has a history of at least 120 days of therapy with THREE preferred medications which include but are not limited to: Byetta 5 mcg, 10 mcg, Victoza 18mg/3ml, or Trulicity 0.75 mg, 1.5 mg, 3 mg, 4.5 mg AND Farxiga 5 mg, 10 mg, Invokana 100 mg, 300 mg or Jardiance 10 mg and 25 mg. Leena Dee MA documented in this encounter [facility] 12-10-2022 Note HNO ID: [id number] Author: Miguelito Wong MD Service: ? Author Type: Physician Type: Progress Notes Filed: 01/17/2023 8:58 PM Note Text: Miguelito Wong MD Department of Orthopaedics Orthopaedics [address] [facility] [address] Dept: [phone] Dept December 10, 2022 CHIEF COMPLAINT: Follow Up of the Right Middle Finger (2 weeks 6 days post visit with Nova ) HPI Pt here for f/u. Pt states pain and swelling about the same since last visit. Prednisone did help, but did not last once course was done. Has appt with Dr. Caldwell in 4 months for US guided injection. Pt is right hand dominant. 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 ASSESSMENT: M79.641 Pain of right hand (primary encounter diagnosis) PLAN: Still having troubles with the joint. She is not able to get in for an ultrasound injection and would really like to try just an office injection anatomically based. We will provide that for her today. Ms. Germán Martinez was advised as to contrast therapies and/or to take analgesics/anti-inflammatories as needed and all contraindications were reviewed. OBJECTIVE: Ms. Germán Martinez is a pleasant 57 year old in no apparent distress. Gen:There were no vitals taken for this visit. nl development, non obese, no deformities ENT: Normocephalic, normal hearing, moist mucosa CV: Pulses:Radial= 2+ and symmetric, capillary refill < 2 secs, no peripheral edema/varicosities Skin: no rash, bruising or lesions. Good turgor. Psych: cooperative and appropriate, alert and oriented x 3, good mood and affect. Musculoskeletal: Stable exam from prior visit deferred today Small Joint Arthro/Inj: R long MCP Informed Consent Consent Obtained: Verbal Delmita Protocol A moment to CARE was completed. SIGN IN Personnel directly involved with the procedure wore the appropriate PPE. Special Equipment: N/A Patient/Surrogate Stated/Verified: Patient name, Date of , Relevant allergies and Intended procedure TIME OUT Intended patient and procedure match the source document(s). Consent documented and matches the intended procedure. Relevant labs, photos, and/or imaging studies have been reviewed. Correct side/site marked and visible. Medications required for procedure verified. No fire risk assessment and interventions applicable. No implant(s) inserted. 12/10/2022 3:08 PM The procedure site was prepped in the usual sterile fashion. Medications: 3 mg betamethasone acetate-betamethasone sodium phosphate 6 mg/mL Anesthetics: 0.5 mL lidocaine (PF) 10 mg/mL (1 %) Outcome: tolerated well, no immediate complications Post-injection instructions were reviewed with the patient and the patient voiced understanding of these instructions. SIGN OUT No instruments, equipment or retained foreign bodies applicable. Imaging: Supporting Subjective Information Below: Past Surgical History: PAST SURGICAL HISTORY Procedure Laterality Date ARTHRP INTERPOS INTERCARPAL/METACARPAL JOINTS Left 06/18/2021 Left thumb CMC arthroplasy with LRTI and percutaneous pinning left thumb MCPJ CONIZATION CERVIX W/WO DANDC RPR ELTRD EXC 09/20/1997 LEEP-Cervix SLING OPER STRES INCONTINENCE 09/20/2001 TONSILLECTOMY PRIMARY/SECONDARY Tonsillectomy Medications: Current Outpatient Medications Medication Sig simvastatin (ZOCOR) 20 mg tablet Take 20 mg by mouth once daily. semaglutide (OZEMPIC) 1 mg/dose (4 mg/3 mL) pen Inject 1 mg subcutaneously one time a week. predniSONE (DELTASONE) 10 mg tablet 6 tabs po day 1, then 5 tabs day 2, 4 tabs day 3, 3 tabs day 4, 2 tabs day 5, 1 tab day 6. (Patient not taking: No sig reported) metFORMIN ER (GLUCOPHAGE XR) 500 mg 24 hr tablet Take 2 tablets by mouth daily with breakfast. leflunomide (ARAVA) 20 mg tablet Take 1 tablet by mouth once daily. potassium chloride (K-TAB) 10 mEq tablet as needed. Only takes if takes hydrochlorothiazide Cholecalciferol, Vitamin D3, 25 mcg (1,000 unit) cap Take 1,000 Units by mouth once daily. amLODIPine (NORVASC) 10 mg tablet Take 10 mg by mouth once daily. cyclobenzaprine (FLEXERIL) 10 mg tablet Take 5 mg by mouth at bedtime as needed. hydroCHLOROthiazide 12.5 mg capsule Take 12.5 mg by mouth once daily. lisinopril (ZESTRIL, PRINIVIL) 20 mg tablet Take 1 tablet by mouth once daily. levothyroxine (SYNTHROID) 75 mcg tablet Take 75 mcg by mouth once daily. No current facility-administered medications for this visit. Allergies: Codeine, Duloxetine, Hydroxychloroquine, Meloxicam, Tapazole [Methimazole], and Vicodin [Hydrocodone-Acetaminophen] ROS: General (negative for fatigue, malaise, weight loss/gain) HEENT (negative for headache, earache, recent vision changes, sinus pain, sore throat) Respiratory (no recent shortness of breath, hemoptysis) CV (negative for chest tightness, palpitations) Musculoskeletal (see HPI) Psych (no depression, anxiety) Miguelito (more content not included)... [facility] 12-02-2022 Miscellaneous Notes Return in about 3 months (around 02/27/2023), recomended in person . No answer ,lvm documented in this encounter [facility] 11-27-2022 Note HNO ID: [id number] Author: Yen Abernathy MD Service: ? Author Type: Physician Type: Progress Notes Filed: 11/27/2022 12:08 PM Note Text: Yen Abernathy MD [address], [facility] [address] [place] [address] This Team Access Model visit is a virtual visit due to COVID -19 Pandemic . It required patient-provider interaction for the medical decision making as documented below. Consent was obtained to complete today's distance health visit. Germán Martinez is a 57 year old female with PMH of DUNG, hypothyroidism, RA, hypertension, prediabetes* here today for a follow up on her weight loss efforts. She is currently taking the prescription weight loss medication Ozempic, off label Concerns: stopped Topamax --as she is developing cataract No nausea with ozempic She is continuing with diet changes: yes -Main focus of dietary changes: Stop snacking and grazing/getting 70 oz of water She is continuing with exercise changes: yes -Exercise routine: Not able to do much exercise due to recent foot fracture Goal weight:150 pound Review of weight loss medication side effects Any GI upset? no Changes to blood pressure? no Visual Changes: no -- Patient reports some suppression of her appetite and increase in satiety since starting the medication Diet: Protein shake And protein with each meals Has been very consistent with her meals. Spacing her meals denies any snacking or grazing. Sleep: Good Stress: Coping better Smoking/Alcohol -denies Review of Systems Constitutional: Negative for malaise/fatigue. HENT: Negative for congestion and tinnitus. Eyes: Negative for blurred vision. Respiratory: Negative for shortness of breath. Cardiovascular: Negative for palpitations, orthopnea and leg swelling. Gastrointestinal: Negative for heartburn, nausea and vomiting. Genitourinary: Negative for dysuria and frequency. Musculoskeletal: Negative for back pain and joint pain. Neurological: Negative for weakness. Psychiatric/Behavioral: The patient does not have insomnia. No previous history of pancreatitis No personal or family history of medullary thyroid cancer No Family history of MEN syndrome S/p thyroid radiation??no cancer VITALS: Ht 162.6 cm (5' 4 ) Wt 86.2 kg (190 lb) LMP (LMP Unknown) BMI 32.61 kg/m? , Body mass index is 32.61 kg/m?. Physical Exam Constitutional:. --no issues with communication HEENT: Normocephalic and atraumatic. Eyes: Conjunctiva appear normal. No scleral icterus. Hearing: Is grossly intact. Neck: Range of motion appears normal. Thyroid: appears symmetric and not enlarged. Pulmonary/Chest: Effort normal. Psychiatric: Mood, memory, affect and judgment normal. Neurological: alert and oriented to person, place, and time. Impression and Plan: ASSESSMENT/PLAN: 1. Class 3 severe obesity with serious comorbidity in adult, unspecified BMI, unspecified obesity type (HCC) - ICD9: 278.01, ICD10: E66.01 (primary diagnosis) Weight decreasing - Pharmacological intervention and - Behavioral and pharmacological intervention -- counseled in length ,recommended Low carb /low sugar diet --managing maladaptive eating behaviors and adding resistance exercise. Continue low carb diet, weights/cardio exercise and increase NEAT. --Topamax was stopped by his community health worker due to possible risk of cataract development per pt?? -- Been tolerating Ozempic without any problems. --Currently on 0.5 if she is doing well on 0.5 may go to 1 mg patient agrees with this plan and verbalizes understanding. 2. Mixed hyperlipidemia - ICD9: 272.2, ICD10: E78.2 - suboptimal control - Encouraged following a low fat, low cholesterol diet. 3. Dietary counseling and surveillance - ICD9: V65.3, ICD10: Z71.3 Reviewed principles of energy metabolism, caloric intake and expenditure, and rationale for treatment program. Also reinforced need for reduced calorie, low fat diet and increased physical activity. 4. Primary hypertension - ICD9: 401.9, ICD10: I10 - suboptimal control --Recommended to monitor blood pressure at home. - Continue current medication(s) - Recommended regular aerobic exercise. - Recommend home blood pressure monitoring, to bring results in on next visit - Goal of BP <130/80 5. DUNG (obstructive sleep apnea) - ICD9: 327.23, ICD10: G47.33 Counseled on using her CPAP regularly. 6. Acquired hypothyroidism - ICD9: 244.9, ICD10: E03.9 - Instructed patient on importance of taking on an empty stomach either first thing in the morning or at bedtime. Weight decreasing - Behavioral and pharmacological intervention 7. Obstructive sleep apnea syndrome - ICD9: 327.23, ICD10: G47.33 Counseled on using her CPAP regularly. 8. Hypothyroidism, unspecified type - ICD9: 244.9, ICD10: E03.9 - Instructed patient on importance of taking on an empty (more content not included)... [facility] 11-27-2022 Instructions Yen Abernathy MD - 11/27/2022 11:35 AM EST Ozempic instructions Ozempic is a once-weekly injection that helps treat diabetes as well as help with weight loss. This is a very potent medication, so it is important to be careful during the first few weeks as your body adjusts to it. Remember, listen to your body! During the first few weeks, you will notice that you become taylor easier. You may not feel like eating at all. That is normal on this medicine. I expect you to lose 1-2 pounds per week when you start this medicine. 5% of patients are unable to tolerate this medicine due to nausea. To make sure you succeed, you need to follow the rules. The 3 rules for success on Ozempic 1. Stay well hydrated. 2. If you are not hungry, do not eat. 3. When you eat, eat slowly and stop as soon as you are full. Week 1- Week 4: Take 0.25 mg once a week. The first dose or two often will make you feel queasy for the first few days. This is normal. You need to stay well hydrated. Drink at least 6 glasses of water or sugar-free beverages per Day. Week 5 - Week 6: If you are still having nausea with the 0.25mg dose, do not increase the medication. If you do not have any nausea, you may increase the dose to 0.5 mg once a week. If you increase the dose to 0.5mg and it is too strong for you (that is, you feel very nauseated), decrease the dose back to 0.25mg once a week until you follow up with your doctor. Week 6 At week 6, most patients should follow up with their doctor to make sure everything is OK. At that appointment, we will determine whether you are a good candidate to continue the medicine and at what dose we need to use. Week 7 and beyond: If your doctor has given you the go-ahead, you may increase the dose to 1 mg once a week. Please note that this dose requires a different prescription, and comes in a different pen. Safety information (when to call your doctor) Call your doctor if you have any blood sugars lower than 70. If you have any blood sugars less than 70, we may need to decrease doses of other medications. Call your doctor if you develop severe abdominal pain. TRYING TO LOSE WEIGHT? Your Body mass index is 32.61 kg/m . (Target BMI: 19-25) A person with a BMI between 25 and 29.9 is considered overweight A person with a BMI of 30 or greater is considered to be obese SETTING A WEIGHT LOSS GOAL: Last 5 Encounter Wt Readings: Date: Wt: 11/27/2022 86.2 kg (190 lb) 08/27/2022 93.9 kg (207 lb) 06/10/2022 97.1 kg (214 lb) 05/18/2022 99.8 kg (220 lb) 05/11/2022 100.9 kg (222 lb 6.4 oz) Lose 10% of body weight over six months, about 1-2 lbs per week LIFESTYLE CHANGES -- The goals of lifestyle changes are to help you change your eating habits, become more active, and be more aware of how much you eat and exercise, helping you to make healthier choices. This can be broken down into three steps: 1. Triggers to eat -- Determining what triggers you to eat involves figuring out what foods you eat and where and when you eat. To figure out what triggers you to eat, keep a record for a few days of everything you eat, the places where you eat, how often you eat, and the emotions you were feeling when you ate. For some people, the trigger is related to a certain time of day or night. For others, the trigger is related to a certain place, like sitting at a desk working. 2. Eating -- You can change your eating habits by breaking the chain of events between the trigger for eating and eating itself. There are many ways to do this. For instance, you can: Limit where you eat to a few places (eg, dining room) Restrict the number of utensils (eg, only a fork) used for eating Drink a sip of water between each bite Chew your food a certain number of times Get up and stop eating every few minutes 3. What happens after you eat -- Rewarding yourself for good eating behaviors can help you to develop better habits. This is not a reward for weight loss; instead, it is a reward for changing unhealthy behaviors. Do not use food as a reward. Some people find money, clothing, or personal care (eg, a hair cut, manicure, or massage) to be effective rewards. Treat yourself immediately after making better eating choices to reinforce the value of the good behavior. You need to have clear behavior goals, and you must have a time frame for reaching your goals. Reward small changes along the way to your final goal. Other factors that contribute to successful weight loss -- Establish a luanne system -- Having a friend or family member available to provide support and reinforce good behavior is very helpful. The support person needs to understand your goals. Learn to be strong -- Learning to be strong when tempted by food is an important part of losing weight. As an example, you will need to learn how to say no and continue to say no when urged to eat at parties and social gatherings. Develop strategies for events before you go, such as eating before you go or taking low-calorie snacks and drinks with you. Develop a support system -- Having a support system is helpful when losing weight. This is why many commercial groups are successful. Family support is also essential; if your family does not support your efforts to lose weight, this can slow your progress or even keep you from losing weight. Positive thinking -- People often have conversations with themselves in their head; these conversations can be positive or negative. If you eat a piece of cake that was not planned, you may respond by thinking, Oh, you stupid idiot, you've blown your diet! and as a result, you may eat more cake. A positive thought for the same event could be, Well, I ate cake when it was not on my plan. Now I should do something to get back on track. A positive approach is much more likely to be successful than a negative one. Reduce stress -- Although stress is a part of everyday life, it can trigger uncontrolled eating in some people. It is important to find a way to get through these difficult times without eating or by eating low-calorie food, like raw vegetables. It may be helpful to imagine a relaxing place that allows you to temporarily escape from stress. With deep breaths and closed eyes, you can imagine this relaxing place for a few minutes. Self-help programs -- Self-help programs like Weight Watchers , Overeaters Anonymous , and Take Off Pounds Sensibly (TOPS) work for some people. As with all weight loss programs, you are most likely to be successful with these plans if you make long-term changes in how you eat. CHOOSING A DIET -- A calorie is a unit of energy found in food. Your body needs calories to function. The goal of any diet is to burn up more calories than you eat. How quickly you lose weight depends upon several factors, such as your age, gender, and starting weight. Older people have a slower metabolism than young people, so they lose weight more slowly. Men lose more weight than women of similar height and weight when dieting because they use more energy. People who are extremely overweight lose weight more quickly than those who are only mildly overweight. How many calories do I need? -- You can estimate the number of calories you need per day based upon your current (or target) weight, gender, and activity level for women and for men. In general, it is best to choose foods that contain enough protein, carbohydrates, essential fatty acids, and vitamins. Try not to drink alcohol or drinks with added sugar, and most sweets (candy, cakes, cookies), since they rarely contain important nutrients. Portion-controlled diets -- One simple way to diet is to buy packaged foods, like frozen low-calorie meals or meal-replacement canned drinks. A typical meal plan for 1000 to 1500 calories per day may include: A meal-replacement drink or breakfast bar for breakfast A meal-replacement drink or a frozen low-calorie (250 to 350 calories) meal for lunch A frozen low-calorie meal or other prepackaged, calorie-controlled meal, along with extra vegetables for dinner Low-fat diet -- To reduce the amount of fat in your diet, you can: Eat low-fat foods. Low-fat foods are those that contain less than 30 percent of calories from fat. Fat is listed on the food facts label Count fat grams. For a 1500 calorie diet, this would mean about 45 g or fewer of fat per day. Low-carbohydrate diet -- Low- and xnpp-akg-amwbjdcnyfmt diets (eg, Atkins diet, [employer] diet) have become popular ways to lose weight quickly. With a smfs-scc-ednfawbrisgp diet, you eat between 0 and 60 grams of carbohydrates per day (a standard diet contains 200 to 300 grams of carbohydrates) With a low-carbohydrate diet, you eat between 60 and 130 grams of carbohydrates per day Carbohydrates are found in fruits, vegetables, and grains (including breads, rice, pasta, and cereal), alcoholic beverages, and in dairy products. Meat and fish do not contain carbohydrates. Side effects of uejk-hzr-dsuwpzqglhfz diets can include constipation, headache, bad breath, muscle cramps, diarrhea, and weakness. Mediterranean diet -- The term Mediterranean diet refers to a way of eating that is common in olive-growing regions around the [place]. Although there is some variation in Mediterranean diets, there are some similarities. Most Mediterranean diets include: A high level of monounsaturated fats (from olive or canola oil, walnuts, pecans, almonds) and a low level of saturated fats (from butter) A high amount of vegetables, fruits, legumes, and grains (7 to 10 servings of fruits and vegetables per day) A moderate amount of milk and dairy products, mostly in the form of cheese. Use low-fat dairy products (skim milk, fat-free yogurt, low-fat cheese). A relatively low amount of red meat and meat products. Substitute fish or poultry for red meat. For those who drink alcohol, a modest amount (mainly as red wine) may help to protect against cardiovascular disease. A modest amount is up to one (4 ounce) glass per day for women and up to two glasses per day for men. Which diet is best? -- No one diet is best for weight loss. Any diet will help you to lose weight if you stick with the diet. Therefore, it is important to choose a diet that includes foods you like. Fad diets -- Fad diets often promise quick weight loss (more than 1 to 2 pounds per week) and may claim that you do not need to exercise or give up favorite foods. Some fad diets cost a lot of money, because you have to pay for seminars or pills. Fad diets generally lack any scientific evidence that they are safe and effective, but instead rely on before and after photos or testimonials. Diets that sound too good to be true usually are. These plans are a waste of time and money and are not recommended. A doctor, nurse, or wood heel fitter machine can help you find a safe and effective way to lose weight and keep it off. Adapted from UpToDateOnlineTRYING TO LOSE WEIGHT? Your Body mass index is 32.61 kg/m . (Target BMI: 19-25) A person with a BMI between 25 and 29.9 is considered overweight A person with a BMI of 30 or greater is considered to be obese SETTING A WEIGHT LOSS GOAL: Last 5 Encounter Wt Readings: Date: Wt: 11/27/2022 86.2 kg (190 lb) 08/27/2022 93.9 kg (207 lb) 06/10/2022 97.1 kg (214 lb) 05/18/2022 99.8 kg (220 lb) 05/11/2022 100.9 kg (222 lb 6.4 oz) Lose 10% of body weight over six months, about 1-2 lbs per week LIFESTYLE CHANGES -- The goals of lifestyle changes are to help you change your eating habits, become more active, and be more aware of how much you eat and exercise, helping you to make healthier choices. This can be broken down into three steps: 1. Triggers to eat -- Determining what triggers you to eat involves figuring out what foods you eat and where and when you eat. To figure out what triggers you to eat, keep a record for a few days of everything you eat, the places where you eat, how often you eat, and the emotions you were feeling when you ate. For some people, the trigger is related to a certain time of day or night. For others, the trigger is related to a certain place, like sitting at a desk working. 2. Eating -- You can change your eating habits by breaking the chain of events between the trigger for eating and eating itself. There are many ways to do this. For instance, you can: Limit where you eat to a few places (eg, dining room) Restrict the number of utensils (eg, only a fork) used for eating Drink a sip of water between each bite Chew your food a certain number of times Get up and stop eating every few minutes 3. What happens after you eat -- Rewarding yourself for good eating behaviors can help you to develop better habits. This is not a reward for weight loss; instead, it is a reward for changing unhealthy behaviors. Do not use food as a reward. Some people find money, clothing, or personal care (eg, a hair cut, manicure, or massage) to be effective rewards. Treat yourself immediately after making better eating choices to reinforce the value of the good behavior. You need to have clear behavior goals, and you must have a time frame for reaching your goals. Reward small changes along the way to your final goal. Other factors that contribute to successful weight loss -- Establish a luanne system -- Having a friend or family member available to provide support and reinforce good behavior is very helpful. The support person needs to understand your goals. Learn to be strong -- Learning to be strong when tempted by food is an important part of losing weight. As an example, you will need to learn how to say no and continue to say no when urged to eat at parties and social gatherings. Develop strategies for events before you go, such as eating before you go or taking low-calorie snacks and drinks with you. Develop a support system -- Having a support system is helpful when losing weight. This is why many commercial groups are successful. Family support is also essential; if your family does not support your efforts to lose weight, this can slow your progress or even keep you from losing weight. Positive thinking -- People often have conversations with themselves in their head; these conversations can be positive or negative. If you eat a piece of cake that was not planned, you may respond by thinking, Oh, you stupid idiot, you've blown your diet! and as a result, you may eat more cake. A positive thought for the same event could be, Well, I ate cake when it was not on my plan. Now I should do something to get back on track. A positive approach is much more likely to be successful than a negative one. Reduce stress -- Although stress is a part of everyday life, it can trigger uncontrolled eating in some people. It is important to find a way to get through these difficult times without eating or by eating low-calorie food, like raw vegetables. It may be helpful to imagine a relaxing place that allows you to temporarily escape from stress. With deep breaths and closed eyes, you can imagine this relaxing place for a few minutes. Self-help programs -- Self-help programs like Weight Watchers , Overeaters Anonymous , and Take Off Pounds Sensibly (TOPS) work for some people. As with all weight loss programs, you are most likely to be successful with these plans if you make long-term changes in how you eat. CHOOSING A DIET -- A calorie is a unit of energy found in food. Your body needs calories to function. The goal of any diet is to burn up more calories than you eat. How quickly you lose weight depends upon several factors, such as your age, gender, and starting weight. Older people have a slower metabolism than young people, so they lose weight more slowly. Men lose more weight than women of similar height and weight when dieting because they use more energy. People who are extremely overweight lose weight more quickly than those who are only mildly overweight. How many calories do I need? -- You can estimate the number of calories you need per day based upon your current (or target) weight, gender, and activity level for women and for men. In general, it is best to choose foods that contain enough protein, carbohydrates, essential fatty acids, and vitamins. Try not to drink alcohol or drinks with added sugar, and most sweets (candy, cakes, cookies), since they rarely contain important nutrients. Portion-controlled diets -- One simple way to diet is to buy packaged foods, like frozen low-calorie meals or meal-replacement canned drinks. A typical meal plan for 1000 to 1500 calories per day may include: A meal-replacement drink or breakfast bar for breakfast A meal-replacement drink or a frozen low-calorie (250 to 350 calories) meal for lunch A frozen low-calorie meal or other prepackaged, calorie-controlled meal, along with extra vegetables for dinner Low-fat diet -- To reduce the amount of fat in your diet, you can: Eat low-fat foods. Low-fat foods are those that contain less than 30 percent of calories from fat. Fat is listed on the food facts label Count fat grams. For a 1500 calorie diet, this would mean about 45 g or fewer of fat per day. Low-carbohydrate diet -- Low- and homa-glo-dfmnpvijhpir diets (eg, Atkins diet, [place] diet) have become popular ways to lose weight quickly. With a gugm-pht-uofglwosprqs diet, you eat between 0 and 60 grams of carbohydrates per day (a standard diet contains 200 to 300 grams of carbohydrates) With a low-carbohydrate diet, you eat between 60 and 130 grams of carbohydrates per day Carbohydrates are found in fruits, vegetables, and grains (including breads, rice, pasta, and cereal), alcoholic beverages, and in dairy products. Meat and fish do not contain carbohydrates. Side effects of umrc-uvj-mrxqbdotjfoo diets can include constipation, headache, bad breath, muscle cramps, diarrhea, and weakness. Mediterranean diet -- The term Mediterranean diet refers to a way of eating that is common in olive-growing regions around the [place]. Although there is some variation in Mediterranean diets, there are some similarities. Most Mediterranean diets include: A high level of monounsaturated fats (from olive or canola oil, walnuts, pecans, almonds) and a low level of saturated fats (from butter) A high amount of vegetables, fruits, legumes, and grains (7 to 10 servings of fruits and vegetables per day) A moderate amount of milk and dairy products, mostly in the form of cheese. Use low-fat dairy products (skim milk, fat-free yogurt, low-fat cheese). A relatively low amount of red meat and meat products. Substitute fish or poultry for red meat. For those who drink alcohol, a modest amount (mainly as red wine) may help to protect against cardiovascular disease. A modest amount is up to one (4 ounce) glass per day for women and up to two glasses per day for men. Which diet is best? -- No one diet is best for weight loss. Any diet will help you to lose weight if you stick with the diet. Therefore, it is important to choose a diet that includes foods you like. Fad diets -- Fad diets often promise quick weight loss (more than 1 to 2 pounds per week) and may claim that you do not need to exercise or give up favorite foods. Some fad diets cost a lot of money, because you have to pay for seminars or pills. Fad diets generally lack any scientific evidence that they are safe and effective, but instead rely on before and after photos or testimonials. Diets that sound too good to be true usually are. These plans are a waste of time and money and are not recommended. A doctor, nurse, or wood heel fitter machine can help you find a safe and effective way to lose weight and keep it off. Adapted from UpToteOnlineTRYING TO LOSE WEIGHT? Your Body mass index is 32.61 kg/m . (Target BMI: 19-25) A person with a BMI between 25 and 29.9 is considered overweight A person with a BMI of 30 or greater is considered to be obese SETTING A WEIGHT LOSS GOAL: Last 5 Encounter Wt Readings: Date: Wt: 11/27/2022 86.2 kg (190 lb) 08/27/2022 93.9 kg (207 lb) 06/10/2022 97.1 kg (214 lb) 05/18/2022 99.8 kg (220 lb) 05/11/2022 100.9 kg (222 lb 6.4 oz) Lose 10% of body weight over six months, about 1-2 lbs per week LIFESTYLE CHANGES -- The goals of lifestyle changes are to help you change your eating habits, become more active, and be more aware of how much you eat and exercise, helping you to make healthier choices. This can be broken down into three steps: 1. Triggers to eat -- Determining what triggers you to eat involves figuring out what foods you eat and where and when you eat. To figure out what triggers you to eat, keep a record for a few days of everything you eat, the places where you eat, how often you eat, and the emotions you were feeling when you ate. For some people, the trigger is related to a certain time of day or night. For others, the trigger is related to a certain place, like sitting at a desk working. 2. Eating -- You can change your eating habits by breaking the chain of events between the trigger for eating and eating itself. There are many ways to do this. For instance, you can: Limit where you eat to a few places (eg, dining room) Restrict the number of utensils (eg, only a fork) used for eating Drink a sip of water between each bite Chew your food a certain number of times Get up and stop eating every few minutes 3. What happens after you eat -- Rewarding yourself for good eating behaviors can help you to develop better habits. This is not a reward for weight loss; instead, it is a reward for changing unhealthy behaviors. Do not use food as a reward. Some people find money, clothing, or personal care (eg, a hair cut, manicure, or massage) to be effective rewards. Treat yourself immediately after making better eating choices to reinforce the value of the good behavior. You need to have clear behavior goals, and you must have a time frame for reaching your goals. Reward small changes along the way to your final goal. Other factors that contribute to successful weight loss -- Establish a luanne system -- Having a friend or family member available to provide support and reinforce good behavior is very helpful. The support person needs to understand your goals. Learn to be strong -- Learning to be strong when tempted by food is an important part of losing weight. As an example, you will need to learn how to say no and continue to say no when urged to eat at parties and social gatherings. Develop strategies for events before you go, such as eating before you go or taking low-calorie snacks and drinks with you. Develop a support system -- Having a support system is helpful when losing weight. This is why many commercial groups are successful. Family support is also essential; if your family does not support your efforts to lose weight, this can slow your progress or even keep you from losing weight. Positive thinking -- People often have conversations with themselves in their head; these conversations can be positive or negative. If you eat a piece of cake that was not planned, you may respond by thinking, Oh, you stupid idiot, you've blown your diet! and as a result, you may eat more cake. A positive thought for the same event could be, Well, I ate cake when it was not on my plan. Now I should do something to get back on track. A positive approach is much more likely to be successful than a negative one. Reduce stress -- Although stress is a part of everyday life, it can trigger uncontrolled eating in some people. It is important to find a way to get through these difficult times without eating or by eating low-calorie food, like raw vegetables. It may be helpful to imagine a relaxing place that allows you to temporarily escape from stress. With deep breaths and closed eyes, you can imagine this relaxing place for a few minutes. Self-help programs -- Self-help programs like Weight Watchers , Overeaters Anonymous , and Take Off Pounds Sensibly (TOPS) work for some people. As with all weight loss programs, you are most likely to be successful with these plans if you make long-term changes in how you eat. CHOOSING A DIET -- A calorie is a unit of energy found in food. Your body needs calories to function. The goal of any diet is to burn up more calories than you eat. How quickly you lose weight depends upon several factors, such as your age, gender, and starting weight. Older people have a slower metabolism than young people, so they lose weight more slowly. Men lose more weight than women of similar height and weight when dieting because they use more energy. People who are extremely overweight lose weight more quickly than those who are only mildly overweight. How many calories do I need? -- You can estimate the number of calories you need per day based upon your current (or target) weight, gender, and activity level for women and for men. In general, it is best to choose foods that contain enough protein, carbohydrates, essential fatty acids, and vitamins. Try not to drink alcohol or drinks with added sugar, and most sweets (candy, cakes, cookies), since they rarely contain important nutrients. Portion-controlled diets -- One simple way to diet is to buy packaged foods, like frozen low-calorie meals or meal-replacement canned drinks. A typical meal plan for 1000 to 1500 calories per day may include: A meal-replacement drink or breakfast bar for breakfast A meal-replacement drink or a frozen low-calorie (250 to 350 calories) meal for lunch A frozen low-calorie meal or other prepackaged, calorie-controlled meal, along with extra vegetables for dinner Low-fat diet -- To reduce the amount of fat in your diet, you can: Eat low-fat foods. Low-fat foods are those that contain less than 30 percent of calories from fat. Fat is listed on the food facts label Count fat grams. For a 1500 calorie diet, this would mean about 45 g or fewer of fat per day. Low-carbohydrate diet -- Low- and jhxu-deq-vjrctsztqmky diets (eg, Atkins diet, [place] diet) have become popular ways to lose weight quickly. With a yolf-cqj-xwljzcpcfyic diet, you eat between 0 and 60 grams of carbohydrates per day (a standard diet contains 200 to 300 grams of carbohydrates) With a low-carbohydrate diet, you eat between 60 and 130 grams of carbohydrates per day Carbohydrates are found in fruits, vegetables, and grains (including breads, rice, pasta, and cereal), alcoholic beverages, and in dairy products. Meat and fish do not contain carbohydrates. Side effects of brkk-obo-mpyuzqrnhljl diets can include constipation, headache, bad breath, muscle cramps, diarrhea, and weakness. Mediterranean diet -- The term Mediterranean diet refers to a way of eating that is common in olive-growing regions around the [place]. Although there is some variation in Mediterranean diets, there are some similarities. Most Mediterranean diets include: A high level of monounsaturated fats (from olive or canola oil, walnuts, pecans, almonds) and a low level of saturated fats (from butter) A high amount of vegetables, fruits, legumes, and grains (7 to 10 servings of fruits and vegetables per day) A moderate amount of milk and dairy products, mostly in the form of cheese. Use low-fat dairy products (skim milk, fat-free yogurt, low-fat cheese). A relatively low amount of red meat and meat products. Substitute fish or poultry for red meat. For those who drink alcohol, a modest amount (mainly as red wine) may help to protect against cardiovascular disease. A modest amount is up to one (4 ounce) glass per day for women and up to two glasses per day for men. Which diet is best? -- No one diet is best for weight loss. Any diet will help you to lose weight if you stick with the diet. Therefore, it is important to choose a diet that includes foods you like. Fad diets -- Fad diets often promise quick weight loss (more than 1 to 2 pounds per week) and may claim that you do not need to exercise or give up favorite foods. Some fad diets cost a lot of money, because you have to pay for seminars or pills. Fad diets generally lack any scientific evidence that they are safe and effective, but instead rely on before and after photos or testimonials. Diets that sound too good to be true usually are. These plans are a waste of time and money and are not recommended. A doctor, nurse, or wood heel fitter machine can help you find a safe and effective way to lose weight and keep it off. Adapted from [facility] My opinion 3 hour Rule: -last meal /snack 3 hours before sleeping ,but mostly try to be done by 7 pm --eat Rich Breakfast, high in protein hard boiled eggs/protein drinks - At least 3 hours break between each meals ,except water --sleep 7 hours at night , that means going to bed early -- drink only water ( no soda or juices) /no Alcohol consumption --cut down on coffee consumption if consuming high amounts Website :You can visit to web site for low carb recipe information as well as visual guide to low carb food: Https://www.dietdoctor.nuMVC/ ( visual guide for low carb diet) Limit carb consumption to 80- 100 grams per day. Goals: formal exercise 2-5 x/week as tolerated, start with 10 mins/day to goal of 30 minutes ( -- for exercise, you should shoot for a goal of >150 min per week initially. Depending at what level you are starting, that may seem like an unachievable task. However, the best plan is to just begin to walk or bike or do another activity that you like and track your steps per day. You do not need to pay attention to the time, but you do need to try to increase your exercise every 3 weeks. Other strength exercises, using light weights or training bands may also be useful, especially when combined with regular aerobic exercise. Studies have shown that >200min per week is best to maintain weight loss, so that would be the overall end goal.) Have 3 meals a day-protein source with each meal (structured meal planning) Food journal daily and bring it to all appointments If you want you can REPLACE one of your meals with a liquid meal or frozen meal. This is easy to start and may help with your weight. 1. Liquid meal replacement (Boost, Ensure) 2. Frozen meal (Healthy Choice, Lean Cuisine - sodium under 650mg, can always add veggies to the meal) 3. Powdered protein (Premier Protein) or meal replacement (I like a plant based meal replacement called Healthy [employer] Nutrition - can mix w froz berries and almond milk) -- IN GENERAL - suggestions based on important of our sleep cycle called circadian rhythm and its influence on our gut microbiota and overall health tragetory 1) EAT MOST OF YOUR FOOD IN AM AND EARLY PM 2) NO EATING AT NIGHT 3) EXERCISE DURING DAY 4) BE CONSISTENT WITH MEAL STRUCTURE ie Meals at same time during the day. -- keep record of your food intake - it is easier for us to understand your eating habits and food preferences, looking into the amounts of protein, carbs, and fat in your diet. Good examples of apps to track calories are [employer], LOSE IT. Some patient have found FOODUCATE to help with decisions around food, however choose apps that best suits you. documented in this encounter [facility] 11-27-2022 History of Present illness Narrative Images from the original note were not included. Yen Abernathy MD [facility] [address] [facility], [address] [facility] - Fourth Floor [place] [address] This Team Access Model visit is a virtual visit due to COVID -19 Pandemic . It required patient-provider interaction for the medical decision making as documented below. Consent was obtained to complete today's distance health visit. Germán Martinez is a 57 year old female with PMH of DUNG, hypothyroidism, RA, hypertension, prediabetes* here today for a follow up on her weight loss efforts. She is currently taking the prescription weight loss medication Ozempic, off label Concerns: stopped Topamax --as she is developing cataract No nausea with ozempic She is continuing with diet changes: yes -Main focus of dietary changes: Stop snacking and grazing/getting 70 oz of water She is continuing with exercise changes: yes -Exercise routine: Not able to do much exercise due to recent foot fracture Goal weight:150 pound Review of weight loss medication side effects Any GI upset? no Changes to blood pressure? no Visual Changes: no -- Patient reports some suppression of her appetite and increase in satiety since starting the medication Diet: Protein shake And protein with each meals Has been very consistent with her meals. Spacing her meals denies any snacking or grazing. Sleep: Good Stress: Coping better Smoking/Alcohol -denies Review of Systems Constitutional: Negative for malaise/fatigue. HENT: Negative for congestion and tinnitus. Eyes: Negative for blurred vision. Respiratory: Negative for shortness of breath. Cardiovascular: Negative for palpitations, orthopnea and leg swelling. Gastrointestinal: Negative for heartburn, nausea and vomiting. Genitourinary: Negative for dysuria and frequency. Musculoskeletal: Negative for back pain and joint pain. Neurological: Negative for weakness. Psychiatric/Behavioral: The patient does not have insomnia. No previous history of pancreatitis No personal or family history of medullary thyroid cancer No Family history of MEN syndrome S/p thyroid radiation??no cancer VITALS: Ht 162.6 cm (5' 4 ) Wt 86.2 kg (190 lb) LMP (LMP Unknown) BMI 32.61 kg/m , Body mass index is 32.61 kg/m . Physical Exam Constitutional:. --no issues with communication HEENT: Normocephalic and atraumatic. Eyes: Conjunctiva appear normal. No scleral icterus. Hearing: Is grossly intact. Neck: Range of motion appears normal. Thyroid: appears symmetric and not enlarged. Pulmonary/Chest: Effort normal. Psychiatric: Mood, memory, affect and judgment normal. Neurological: alert and oriented to person, place, and time. Impression and Plan: ASSESSMENT/PLAN: 1. Class 3 severe obesity with serious comorbidity in adult, unspecified BMI, unspecified obesity type (HCC) - ICD9: 278.01, ICD10: E66.01 (primary diagnosis) Weight decreasing - Pharmacological intervention and - Behavioral and pharmacological intervention -- counseled in length ,recommended Low carb /low sugar diet --managing maladaptive eating behaviors and adding resistance exercise. Continue low carb diet, weights/cardio exercise and increase NEAT. --Topamax was stopped by his community health worker due to possible risk of cataract development per pt?? -- Been tolerating Ozempic without any problems. --Currently on 0.5 if she is doing well on 0.5 may go to 1 mg patient agrees with this plan and verbalizes understanding. 2. Mixed hyperlipidemia - ICD9: 272.2, ICD10: E78.2 - suboptimal control - Encouraged following a low fat, low cholesterol diet. 3. Dietary counseling and surveillance - ICD9: V65.3, ICD10: Z71.3 Reviewed principles of energy metabolism, caloric intake and expenditure, and rationale for treatment program. Also reinforced need for reduced calorie, low fat diet and increased physical activity. 4. Primary hypertension - ICD9: 401.9, ICD10: I10 - suboptimal control --Recommended to monitor blood pressure at home. - Continue current medication(s) - Recommended regular aerobic exercise. - Recommend home blood pressure monitoring, to bring results in on next visit - Goal of BP <130/80 5. DUNG (obstructive sleep apnea) - ICD9: 327.23, ICD10: G47.33 Counseled on using her CPAP regularly. 6. Acquired hypothyroidism - ICD9: 244.9, ICD10: E03.9 - Instructed patient on importance of taking on an empty stomach either first thing in the morning or at bedtime. Weight decreasing - Behavioral and pharmacological intervention 7. Obstructive sleep apnea syndrome - ICD9: 327.23, ICD10: G47.33 Counseled on using her CPAP regularly. 8. Hypothyroidism, unspecified type - ICD9: 244.9, ICD10: E03.9 - Instructed patient on importance of taking on an empty stomach either first thing in the morning or at bedtime. Weight decreasing - Behavioral and pharmacological intervention 9. Prediabetes - ICD9: 790.29, ICD10: R73.03 -Has been tolerating metformin without any problems after discussion recommended to increase to 1 g -Tolerating GLP-1, Ozempic well recommended to increase to 1 mg. 10. BMI >40 -- Down to BMI 32.6 -- counseled in length ,recommended Low carb /low sugar diet --managing maladaptive eating behaviors and adding resistance exercise. Continue low carb diet, weights/cardio exercise and increase NEAT. Yen Abernathy MD Her weight-related medical comorbidities are improving with weight loss. She is doing well otherwise, continues lifestyle modification. She remains motivated to lose weight. Reviewed principles of energy metabolism, caloric intake and expenditure, and rationale for treatment program. Also reinforced need for reduced calorie, low fat diet and increased physical activity. Yen Abernathy MD Some elements were copied from my last note, which have been updated where appropriate, and all reflect current medical decision making from TODAY History Review: I have reviewed and modified as needed, the following during this visit: Allergies, Past Medical History, Past Surgical History, Past Family History, Past Social History. Counseling Visit 22 minutes for preventive counseling/IBT Screening for obesity completed during initial plan of care. Patient was competent and alert at the time that counseling was provided. 5a's reviewed: Assess- I assessed behavioral health risk/factors affecting --- Asked about/assess behavioral health risk(s) and factors affecting choice of behavior change goals -insulin resistance/metabolic syndrome Several stressors working on her grandkids custody -Recent foot fracture currently working with Ortho so unable to walk was recommended to engage in water therapy only Advise: clear, specific, personalized behavior change advice. -I gave very clear, specific, and personalized behavior change adviced, including information about personal health harms and benefits. Agree: Patient agrees with selected appropriate treatment goals and methods to change behavior Assist:provided IBT w self-help, handouts, teaching skills and support Using behavior change techniques with self-help and Counseling in achieving Goals. Also discussed supplementing with adjunctive medical treatments when appropriate. Arrange- follow up scheduled, Handouts given to patient My opinion -- 3 hour Rule -last meal /snack 3 hours before sleeping ,try to be done by 7 pm --eat Rich Breakfast - At Least 3 hours break between each meals ,except water --sleep 7 hours at night , that means going to bed early -- drink only water ( no soda or juices) /no Alcohol consumption --cut down on coffee consumption if consuming high amounts Website :You can visit to web site for low carb recipe information as well as visual guide to low carb food: [employer] Limit carb consumption to 80- 100 grams per day. Goals: formal exercise 2-5 x/week as tolerated, start with 10 mins/day to goal of 30 minutes Have 3 meals a day-protein source with each meal (structured meal planning) Food journal daily and bring it to all appointments -- IN GENERAL - suggestions based on important of our sleep cycle called circadian rhythm and its influence on our gut microbiota and overall health tragetory 1) EAT MOST OF YOUR FOOD IN AM AND EARLY PM 2) NO EATING AT NIGHT 3) EXERCISE DURING DAY 4) BE CONSISTENT WITH MEAL STRUCTURE ie Meals at same time during the day. -- keep record of your food intake - it is easier for us to understand your eating habits and food preferences, looking into the amounts of protein, carbs, and fat in your diet. Good examples of apps to track calories are [employer]ernixData[employer], LOSE IT. Some patient have found FOODUCATE to help with decisions around food, however choose apps that best suits you. -- for exercise, you should shoot for a goal of >150 min per week initially. Depending at what level you are starting, that may seem like an unachievable task. However, the best plan is to just begin to walk or bike or do another activity that you like and track your steps per day. You do not need to pay attention to the time, but you do need to try to increase your exercise every 3 weeks. Other strength exercises, using light weights or training bands may also be useful, especially when combined with regular aerobic exercise. Studies have shown that >200min per week is best to maintain weight loss, so that would be the overall end goal. -- One option we discussed is to REPLACE one of your meals with a liquid meal or frozen meal. This is easy to start and may help with your weight. 1. Liquid meal replacement (Boost, Ensure) 2. Frozen meal (Healthy Choice, Lean Cuisine - sodium under 650mg, can always add veggies to the meal) 3. Powdered protein (Premier Protein) or meal replacement (I like a plant based meal replacement called Flixlab - can mix w froz berries and almond milk) This note was partially generated using Zync[employer] voice recognition system, and there may be some incorrect words, spellings, and punctuation that were not noted in checking the note before saving History Review: I have reviewed and modified as needed, the following during this visit: Allergies, Past Medical History, Past Surgical History, Past Family History, Past Social History. History Review: I have reviewed and modified as needed, the following during this visit: Allergies, Past Medical History, Past Surgical History, Past Family History, Past Social History. documented in this encounter [facility] 11-26-2022 Note HNO ID: [id number] Author: Kym Conrad, DO Service: ? Author Type: Physician Type: Progress Notes Filed: 11/26/2022 12:51 PM Note Text: Pt here for MRI results done on 2/23/23 on left knee after continued pain. Pt states she is using ice and rest for pain control. Pt was prescribed prednisone burst for pain in hand which helped with the knee pain and inflammation. Pt states tight pants like jeans irritates the skin. Last injection 10/15/22 Follow Up Visit Chief Complaint Germán Martinez is a 57 year old female who presents today for follow up office visit. Patient presents with: Left Knee - Established Patient, Follow Up: Mri results History of Present Illness PAIN EVALUATION 11/19/2022195111/26/2022 1126 Pain Level: 6 6 Pain Location: -- Knee-Left Description: Cutting;Numbness;Pressure;Sharp;St iffness Tightness Duration Amount of Time: -- 2 Duration Units: Days Months Frequency: Continuous Continuous Intervention/Comfort measure: Positioning Medication;Cold HPI: Germán Martinez is a 57 year old female for a follow up visit left knee pain. Pain history is noted as above. Is there any overall improvement in your condition? Yes, only due to recent prednisone therapy for unrelated issue. Any new injury, since being seen last: No REVIEW OF SYMPTOMS: Patient did not have, and does not currently have, any weight loss, malaise, fever, chills, headache, chest pain, chest pressure, palpitations, cough, shortness of breath, orthopnea, paroxsymal nocturnal dyspnea, nausea, vomiting, diarrhea, constipation, melena, hematochezia, urinary difficulties, prolonged bleeding, easily bruising, heat or cold intolerance, new onset joint pain or swelling, new onset extremity weakness or numbness, new onset auditory or visual disturbances, lightheadedness, dizziness, partial loss of consciousness or full loss of consciousness. Current Outpatient Medications Medication Sig semaglutide (OZEMPIC) 0.25 mg or 0.5 mg(2 mg/1.5 mL) pen Inject 0.5 mg subcutaneously one time a week. metFORMIN ER (GLUCOPHAGE XR) 500 mg 24 hr tablet Take 2 tablets by mouth daily with breakfast. leflunomide (ARAVA) 20 mg tablet Take 1 tablet by mouth once daily. potassium chloride (K-TAB) 10 mEq tablet as needed. Only takes if takes hydrochlorothiazide Cholecalciferol, Vitamin D3, 25 mcg (1,000 unit) cap Take 1,000 Units by mouth once daily. amLODIPine (NORVASC) 10 mg tablet Take 10 mg by mouth once daily. simvastatin (ZOCOR) 10 mg tablet Take 10 mg by mouth daily at bedtime. cyclobenzaprine (FLEXERIL) 10 mg tablet Take 5 mg by mouth at bedtime as needed. hydroCHLOROthiazide 12.5 mg capsule Take 12.5 mg by mouth once daily. lisinopril (ZESTRIL, PRINIVIL) 20 mg tablet Take 1 tablet by mouth once daily. levothyroxine (SYNTHROID) 75 mcg tablet Take 75 mcg by mouth once daily. predniSONE (DELTASONE) 10 mg tablet 6 tabs po day 1, then 5 tabs day 2, 4 tabs day 3, 3 tabs day 4, 2 tabs day 5, 1 tab day 6. (Patient not taking: Reported on 11/26/2022) No current facility-administered medications for this visit. Physical Exam Vitals: There were no vitals taken for this visit. Psych: Pleasant, good affect and mood General Appearance: Well appearing, alert, in no acute distress, well-hydrated, well nourished.. Skin: Skin color, texture, turgor normal, no suspicious rashes or lesions. Peripheral Pulses: Normal. Neurologic: Gait normal. Reflexes normal and symmetric. Sensation grossly intact.. Lymph Nodes: No cervical lymphadenopathy, No supraclavicular lymphadenopathy, No axillary lymphadenopathy., and No inguinal lymphadenopathy.. Respiratory: No recent pulmonary infection, hemoptysis, chronic cough, or shortness of breath at rest Rheumatologic: Joint deformities: left knee pain Right Knee Exam Right knee exam is normal. Muscle Strength The patient has normal right knee strength. Tenderness The patient is experiencing no tenderness. Range of Motion Extension: normal Flexion: normal Tests Misha: Anterior - negative Posterior - negative Drawer: Anterior - negative Posterior - negative Other Erythema: absent Sensation: normal Pulse: present Swelling: none Left Knee Exam Tenderness The patient is experiencing tenderness in the medial joint line. Range of Motion Extension: normal Flexion: normal Tests Misha: Anterior - negative Posterior - negative Drawer: Anterior - negative Posterior - negative Other Erythema: absent Sensation: normal Pulse: present Swelling: moderate Comments: Neg homans bilaterally Focused examination of Left knee, patient has mild laxity and slight joint space opening MEDIAL with valgus stress. Assessment and Plan Radiographs: I have independently reviewed films and my findings are the same. and I have reviewed the images with the patient and family. Last XR Knee - Impression Only XR KNEE GENERAL 4V AP BOTH/PA KEITH (more content not included)... [facility] 11-26-2022 History of Present illness Narrative Images from the original note were not included. Pt here for MRI results done on 11/12/22 on left knee after continued pain. Pt states she is using ice and rest for pain control. Pt was prescribed prednisone burst for pain in hand which helped with the knee pain and inflammation. Pt states tight pants like jeans irritates the skin. Last injection 10/15/22 Follow Up Visit Chief Complaint Germán Martinez is a 57 year old female who presents today for follow up office visit. Patient presents with: Left Knee - Established Patient, Follow Up: Mri results History of Present Illness PAIN EVALUATION 11/19/2022195111/26/2022 1126 Pain Level: 6 6 Pain Location: -- Knee-Left Description: Cutting;Numbness;Pressure;Sharp;St iffness Tightness Duration Amount of Time: -- 2 Duration Units: Days Months Frequency: Continuous Continuous Intervention/Comfort measure: Positioning Medication;Cold HPI: Germán Martinez is a 57 year old female for a follow up visit left knee pain. Pain history is noted as above. Is there any overall improvement in your condition? Yes, only due to recent prednisone therapy for unrelated issue. Any new injury, since being seen last: No REVIEW OF SYMPTOMS: Patient did not have, and does not currently have, any weight loss, malaise, fever, chills, headache, chest pain, chest pressure, palpitations, cough, shortness of breath, orthopnea, paroxsymal nocturnal dyspnea, nausea, vomiting, diarrhea, constipation, melena, hematochezia, urinary difficulties, prolonged bleeding, easily bruising, heat or cold intolerance, new onset joint pain or swelling, new onset extremity weakness or numbness, new onset auditory or visual disturbances, lightheadedness, dizziness, partial loss of consciousness or full loss of consciousness. Current Outpatient Medications Medication Sig semaglutide (OZEMPIC) 0.25 mg or 0.5 mg(2 mg/1.5 mL) pen Inject 0.5 mg subcutaneously one time a week. metFORMIN ER (GLUCOPHAGE XR) 500 mg 24 hr tablet Take 2 tablets by mouth daily with breakfast. leflunomide (ARAVA) 20 mg tablet Take 1 tablet by mouth once daily. potassium chloride (K-TAB) 10 mEq tablet as needed. Only takes if takes hydrochlorothiazide Cholecalciferol, Vitamin D3, 25 mcg (1,000 unit) cap Take 1,000 Units by mouth once daily. amLODIPine (NORVASC) 10 mg tablet Take 10 mg by mouth once daily. simvastatin (ZOCOR) 10 mg tablet Take 10 mg by mouth daily at bedtime. cyclobenzaprine (FLEXERIL) 10 mg tablet Take 5 mg by mouth at bedtime as needed. hydroCHLOROthiazide 12.5 mg capsule Take 12.5 mg by mouth once daily. lisinopril (ZESTRIL, PRINIVIL) 20 mg tablet Take 1 tablet by mouth once daily. levothyroxine (SYNTHROID) 75 mcg tablet Take 75 mcg by mouth once daily. predniSONE (DELTASONE) 10 mg tablet 6 tabs po day 1, then 5 tabs day 2, 4 tabs day 3, 3 tabs day 4, 2 tabs day 5, 1 tab day 6. (Patient not taking: Reported on 11/26/2022) No current facility-administered medications for this visit. Physical Exam Vitals: There were no vitals taken for this visit. Psych: Pleasant, good affect and mood General Appearance: Well appearing, alert, in no acute distress, well-hydrated, well nourished.. Skin: Skin color, texture, turgor normal, no suspicious rashes or lesions. Peripheral Pulses: Normal. Neurologic: Gait normal. Reflexes normal and symmetric. Sensation grossly intact.. Lymph Nodes: No cervical lymphadenopathy, No supraclavicular lymphadenopathy, No axillary lymphadenopathy., and No inguinal lymphadenopathy.. Respiratory: No recent pulmonary infection, hemoptysis, chronic cough, or shortness of breath at rest Rheumatologic: Joint deformities: left knee pain Right Knee Exam Right knee exam is normal. Muscle Strength The patient has normal right knee strength. Tenderness The patient is experiencing no tenderness. Range of Motion Extension: normal Flexion: normal Tests Misha: Anterior - negative Posterior - negative Drawer: Anterior - negative Posterior - negative Other Erythema: absent Sensation: normal Pulse: present Swelling: none Left Knee Exam Tenderness The patient is experiencing tenderness in the medial joint line. Range of Motion Extension: normal Flexion: normal Tests Misha: Anterior - negative Posterior - negative Drawer: Anterior - negative Posterior - negative Other Erythema: absent Sensation: normal Pulse: present Swelling: moderate Comments: Neg homans bilaterally Focused examination of Left knee, patient has mild laxity and slight joint space opening MEDIAL with valgus stress. Assessment and Plan Radiographs: I have independently reviewed films and my findings are the same. and I have reviewed the images with the patient and family. Last XR Knee - Impression Only XR KNEE GENERAL 4V AP BOTH/PA BOTH/LAT/MERC LEFT Exam End: 05/11/2022 12:49 PM (Final result) Impression: IMPRESSION: Degenerative changes as detailed in report. 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 Last MRI Knee - Impression Only MRI KNEE WO IVCON LT Exam End: 11/12/2022 11:23 AM (Final result) Impression: IMPRESSION: SEVERE MEDIAL COMPARTMENT OSTEOARTHRITIS WITH SUBCHONDRAL TRABECULAR IMPACTION AND MENISCAL TEAR. ... Impression: Encounter Diagnosis ICD-10-CM 1. 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 Arthritis of knee M17.10 Today, in detail, through a thorough evaluation, we discussed possible etiologies of pain and our plans for further diagnostic and therapeutic interventions. We discussed strategies for decreasing pain and improving strength, stability and motion. Patient's questions were answered in detailed. Patient verbalizes understanding and agrees with the treatment plan as discussed. Online Mer[employer] brace ordered for impaction 6-8 wks limited impact, ok to do bicycle and swimming Patient aware and in agreement of plan. All questions answered. documented in this encounter [facility] 11-23-2022 Miscellaneous Notes This patient gave consent to this Medical Advice Message and is aware that it may result in a bill to their insurance, as well as the possibility of receiving a bill for a copay and/or deductible. They are an established patient, but are not seeking information exclusively about a problem treated during an in person or video visit in the last seven days. I did not recommend an in person or video visit within seven days of my reply. See the [employer] message reply for my assessment and plan. I spent a total of 5 minutes reviewing the patient's prior medical records and current request for medical advice, prescribing medications or ordering tests (if applicable), replying to the patient, and documenting the encounter. MRI results in epic. Katherine Perez LPN documented in this encounter [facility] 11-20-2022 Note HNO ID: [id number] Author: Nova Desouza PA-C Service: ? Author Type: Physician Hotel Service Supervisor Type: Progress Notes Filed: 11/20/2022 3:09 PM Note Text: Nova Desouza PA-C Department of Orthopaedics Orthopaedics [address] [place] [id number] Dept: [phone] Dept November 20, 2022 CHIEF COMPLAINT: Established Patient and Pain of the Right Hand Ms. Germán Martinez is a 57 year old female who presents with continued pain and swelling at her third metacarpal joint. Pain is 6/10. Patient had a corticosteroid injection with Dr. Wong 2 months ago, she reports injection was only helpful for 1 month. Previous ultrasound-guided injections by Dr. Caldwell were helpful for almost 3 months. She tells me that she has been caring for her grandchildren and is doing a lot of lifting pushing and pulling which is aggravating her finger pain. She is unable to tolerate oral anti-inflammatories as she has decreased renal function. She has rheumatoid arthritis. ASSESSMENT: M19.041 Arthritis of finger of right hand (primary encounter diagnosis) M06.9 Rheumatoid arthritis involving multiple sites, unspecified whether rheumatoid factor present (HCC) PLAN: We discussed getting her back into Dr. Caldwell to try a ultrasound-guided injection. In the meantime we will try a small steroid taper to help with pain and discomfort. Ms. Germán Martinez was advised as to contrast therapies and/or to take analgesics/anti-inflammatories as needed and all contraindications were reviewed. OBJECTIVE: Ms. Germán Martinez is a pleasant 57 year old in no apparent distress. Gen:There were no vitals taken for this visit. nl development, obese, no deformities ENT: Normocephalic, normal hearing, moist mucosa CV: Pulses:Radial= 2+ and symmetric, capillary refill < 2 secs, no peripheral edema/varicosities Skin: no rash, bruising or lesions. Good turgor. Psych: cooperative and appropriate, alert and oriented x 3, good mood and affect. Musculoskeletal: Diffuse arthritic changes of the hand especially at the basal joint, there is mild to moderate edema over the extensor aspect of the third metacarpal joint. Patient is able to form a loose composite fist and extend all digits without any locking or catching. Middle digit is stable to collateral stresses. Sensations intact to the hand. Imaging: IMPRESSION: Mild osteoarthritis. 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 Date/Time: Sep 11 2022 11:36A Dictated by : MELVIN SHERIFF DO This examination was interpreted and the report reviewed and electronically signed by: MELVIN SHERIFF DO on Sep 11 2022 11:40AM EST Results-Findings * * *Final Report* * * DATE OF EXAM: Sep 09 2022 8:19AM WOX [id number] - XR HAND 3V PA/LAT/OBL RT / PROCEDURE REASON: Pain of right hand * * * * Physician Interpretation * * * * EXAMINATION: XR HAND 3V PA/LAT/OBL RT PATIENT/TECHNOLOGIST PROVIDED HISTORY: pain for 2 years distal third MC no recent inj CLINICAL INFORMATION: 57 years old Female with Pain of right hand TECHNIQUE: XR HAND 3V PA/LAT/OBL RT Laterality: RIGHT Number of different views (projections): 3 COMPARISON: None RESULT: Mild degenerative change first CMC joint, first through third CMC joints and mild scattered degenerative changes at the interphalangeal joints. Ulnar negative variance. No fracture, erosions or other significant abnormality. Supporting Subjective Information Below: Past Surgical History: PAST SURGICAL HISTORY Procedure Laterality Date ARTHRP INTERPOS INTERCARPAL/METACARPAL JOINTS Left 06/18/2021 Left thumb CMC arthroplasy with LRTI and percutaneous pinning left thumb MCPJ CONIZATION CERVIX W/WO DANDC RPR ELTRD EXC 09/20/1997 LEEP-Cervix SLING OPER STRES INCONTINENCE 09/20/2001 TONSILLECTOMY PRIMARY/SECONDARY Tonsillectomy Medications: Current Outpatient Medications Medication Sig semaglutide (OZEMPIC) 0.25 mg or 0.5 mg(2 mg/1.5 mL) pen Inject 0.5 mg subcutaneously one time a week. metFORMIN ER (GLUCOPHAGE XR) 500 mg 24 hr tablet Take 2 tablets by mouth daily with breakfast. leflunomide (ARAVA) 20 mg tablet Take 1 tablet by mouth once daily. potassium chloride (K-TAB) 10 mEq tablet as needed. Only takes if takes hydrochlorothiazide Cholecalciferol, Vitamin D3, 25 mcg (1,000 unit) cap Take 1,000 Units by mouth once daily. amLODIPine (NORVASC) 10 mg tablet Take 10 mg by mouth once daily. simvastatin (ZOCOR) 10 mg tablet Take 10 mg by mouth daily at bedtime. cyclobenzaprine (FLEXERIL) 10 mg tablet Take 5 mg by mouth at bedtime as needed. hydroCHLOROthiazide 12.5 mg capsule Take 12.5 mg by mouth once daily. lisinopril (ZESTRIL, PRINIVIL) 20 mg tablet Take 1 tablet by mouth once daily. levothyroxine (SYNTHROID) 75 mcg tablet Take 75 mcg by mouth once daily. predniSONE (DELTASONE) 10 mg tablet 6 tabs po day 1, then 5 tabs day 2, 4 tabs day 3, 3 tabs day 4, 2 tabs day 5, 1 tab day 6. (more content not included)... [facility] 11-20-2022 Note HNO ID: [id number] Author: Marianela Navarrete Ma Service: ? Author Type: ? Type: Progress Notes Filed: 11/20/2022 3:09 PM Note Text: AMB ROOMING INTAKE FLOWSHEET DATA Pain Pain Level: 6 Description: Cutting, Numbness, Pressure, Sharp, Stiffness Duration Units: Days Frequency: Continuous Intervention/Comfort measure: Positioning Patient here today for 6 weeks 1 day post visit arthritis right 3rd finger with BP with injection given. Patient reports swelling and pain wakes her at night. [facility] 11-20-2022 History of Present illness Narrative Nova Desouza PA-C Department of Orthopaedics Orthopaedics [address] [facility] [address] Dept: [phone] Dept November 20, 2022 CHIEF COMPLAINT: Established Patient and Pain of the Right Hand Ms. Germán Martinez is a 57 year old female who presents with continued pain and swelling at her third metacarpal joint. Pain is 6/10. Patient had a corticosteroid injection with Dr. Wong 2 months ago, she reports injection was only helpful for 1 month. Previous ultrasound-guided injections by Dr. Caldwell were helpful for almost 3 months. She tells me that she has been caring for her grandchildren and is doing a lot of lifting pushing and pulling which is aggravating her finger pain. She is unable to tolerate oral anti-inflammatories as she has decreased renal function. She has rheumatoid arthritis. ASSESSMENT: M19.041 Arthritis of finger of right hand (primary encounter diagnosis) M06.9 Rheumatoid arthritis involving multiple sites, unspecified whether rheumatoid factor present (HCC) PLAN: We discussed getting her back into Dr. Caldwell to try a ultrasound-guided injection. In the meantime we will try a small steroid taper to help with pain and discomfort. Ms. Germán Martinez was advised as to contrast therapies and/or to take analgesics/anti-inflammatories as needed and all contraindications were reviewed. OBJECTIVE: Ms. Germán Martinez is a pleasant 57 year old in no apparent distress. Gen:There were no vitals taken for this visit. nl development, obese, no deformities ENT: Normocephalic, normal hearing, moist mucosa CV: Pulses:Radial= 2+ and symmetric, capillary refill < 2 secs, no peripheral edema/varicosities Skin: no rash, bruising or lesions. Good turgor. Psych: cooperative and appropriate, alert and oriented x 3, good mood and affect. Musculoskeletal: Diffuse arthritic changes of the hand especially at the basal joint, there is mild to moderate edema over the extensor aspect of the third metacarpal joint. Patient is able to form a loose composite fist and extend all digits without any locking or catching. Middle digit is stable to collateral stresses. Sensations intact to the hand. Imaging: IMPRESSION: Mild osteoarthritis. 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 Date/Time: Sep 11 2022 11:36A Dictated by : MELVIN SHERIFF DO This examination was interpreted and the report reviewed and electronically signed by: MELVIN SHERIFF DO on Sep 11 2022 11:40AM EST Results-Findings * * *Final Report* * * DATE OF EXAM: Sep 09 2022 8:19AM WOX [id number] - XR HAND 3V PA/LAT/OBL RT / PROCEDURE REASON: Pain of right hand * * * * Physician Interpretation * * * * EXAMINATION: XR HAND 3V PA/LAT/OBL RT PATIENT/TECHNOLOGIST PROVIDED HISTORY: pain for 2 years distal third MC no recent inj CLINICAL INFORMATION: 57 years old Female with Pain of right hand TECHNIQUE: XR HAND 3V PA/LAT/OBL RT Laterality: RIGHT Number of different views (projections): 3 COMPARISON: None RESULT: Mild degenerative change first CMC joint, first through third CMC joints and mild scattered degenerative changes at the interphalangeal joints. Ulnar negative variance. No fracture, erosions or other significant abnormality. Supporting Subjective Information Below: Past Surgical History: PAST SURGICAL HISTORY Procedure Laterality Date ARTHRP INTERPOS INTERCARPAL/METACARPAL JOINTS Left 06/18/2021 Left thumb CMC arthroplasy with LRTI and percutaneous pinning left thumb MCPJ CONIZATION CERVIX W/WO D&C RPR ELTRD EXC 09/20/1997 LEEP-Cervix SLING OPER STRES INCONTINENCE 09/20/2001 TONSILLECTOMY PRIMARY/SECONDARY <AGE 12 09/20/1969 Tonsillectomy Medications: Current Outpatient Medications Medication Sig semaglutide (OZEMPIC) 0.25 mg or 0.5 mg(2 mg/1.5 mL) pen Inject 0.5 mg subcutaneously one time a week. metFORMIN ER (GLUCOPHAGE XR) 500 mg 24 hr tablet Take 2 tablets by mouth daily with breakfast. leflunomide (ARAVA) 20 mg tablet Take 1 tablet by mouth once daily. potassium chloride (K-TAB) 10 mEq tablet as needed. Only takes if takes hydrochlorothiazide Cholecalciferol, Vitamin D3, 25 mcg (1,000 unit) cap Take 1,000 Units by mouth once daily. amLODIPine (NORVASC) 10 mg tablet Take 10 mg by mouth once daily. simvastatin (ZOCOR) 10 mg tablet Take 10 mg by mouth daily at bedtime. cyclobenzaprine (FLEXERIL) 10 mg tablet Take 5 mg by mouth at bedtime as needed. hydroCHLOROthiazide 12.5 mg capsule Take 12.5 mg by mouth once daily. lisinopril (ZESTRIL, PRINIVIL) 20 mg tablet Take 1 tablet by mouth once daily. levothyroxine (SYNTHROID) 75 mcg tablet Take 75 mcg by mouth once daily. predniSONE (DELTASONE) 10 mg tablet 6 tabs po day 1, then 5 tabs day 2, 4 tabs day 3, 3 tabs day 4, 2 tabs day 5, 1 tab day 6. No current facility-administered medications for this visit. Allergies: Codeine, Duloxetine, Hydroxychloroquine, Meloxicam, Tapazole [Methimazole], and Vicodin [Hydrocodone-Acetaminophen] ROS: General (negative for fatigue, malaise, weight loss/gain) HEENT (negative for headache, earache, recent vision changes, sinus pain, sore throat) Respiratory (no recent shortness of breath, hemoptysis) CV (negative for chest tightness, palpitations) Musculoskeletal (see HPI) Psych (no depression, anxiety) This note was partially generated using [employer] voice recognition system, and there may be some incorrect words, spellings, and punctuation that were not noted in checking the note before saving. Nova Desouza PA-C AMB ROOMING INTAKE FLOWSHEET DATA Pain Pain Level: 6 Description: Cutting, Numbness, Pressure, Sharp, Stiffness Duration Units: Days Frequency: Continuous Intervention/Comfort measure: Positioning Patient here today for 6 weeks 1 day post visit arthritis right 3rd finger with BP with injection given. Patient reports swelling and pain wakes her at night. documented in this encounter [facility] 11-12-2022 Note HNO ID: [id number] Author: RT David(R) Service: ? Author Type: Technologist Type: Progress Notes Filed: 11/12/2022 11:10 AM Note Text: Radiology Service Progress Note PATIENT NAME: Germán Martinez DATE OF SERVICE: November 12, 2022 TIME: 11:09 AM PATIENT IDENTITY VERIFICATION COMPLETED USING TWO (2) IDENTIFIERS: Name and Date of confirmed by patient verbally. FALL SCREENING: Has the patient had 2 falls in the last year or 1 fall with injury or currently using an Ambulatory Assistive Device (Walker, Cane, Wheelchair, Crutches, etc.)? No PATIENT GENDER DATA: Female. status: : No status: NO. PATIENT RELEVANT IMPLANT DATA REVIEWED: Yes RADIOLOGY DEPARTMENT: MR; Exam(s) Completed: Lower MSK: Knee, left PERIPHERAL IV DATA: Not applicable SIGNED BY: RT David(R) November 12, 2022 11:09 AM [facility] 11-06-2022 Miscellaneous Notes According to referral, testing has been authorized. Patient has been notified. She was transferred to see if she could get a sooner appointment. Germán called stating that [facility] have not received a request for the MRI of her knee and she saw Dr. Olsen last week. Germán states that she is in severe pain and needs something done as soon as possible. She also states that [facility] told her that the office can request an expedited prior-authorization by checking a box on the PA form. Shy Roque RN documented in this encounter [facility] 10-26-2022 Miscellaneous Notes Patient sent a [employer] message requesting the following refill. Requested Prescriptions Pending Prescriptions Disp Refills metFORMIN ER (GLUCOPHAGE XR) 500 mg 24 hr tablet 180 tablet 0 Sig: Take 2 tablets by mouth daily with breakfast. Next Appointment: 11/27/2022 Patient Phone numbers: [phone] (home) Request is for script(s) to be escript to pharmacy. Leena Dee MA documented in this encounter [facility] 10-22-2022 Note HNO ID: [id number] Author: Kym Conrad, DO Service: ? Author Type: Physician Type: Progress Notes Filed: 10/22/2022 4:21 PM Note Text: Follow Up Visit Chief Complaint Germán Martinez is a 57 year old female who presents today for follow up office visit. Patient presents with: Left Knee - Established Patient, Knee Pain History of Present Illness PAIN EVALUATION 10/15/2022202110/22/2022 1121 Pain Level: 6 5 Pain Location: Knee-Left Knee-Left Description: Burning;Pressure;Sharp;Stiffness Burning;Pressure;Stiffness;Aching Duration Amount of Time: -- 1 Duration Units: Weeks Months Frequency: Continuous Continuous Intervention/Comfort measure: -- Medication;Cold;Relaxation Comments: Try icing ,tens don?t help bio freeze, injections HPI: Germán Martinez is a 57 year old female for a follow up visit L knee pain. Pt feels a pop when walking. Pain history is noted as above. Is there any overall improvement in your condition? No Any new injury, since being seen last: No REVIEW OF SYMPTOMS: Patient did not have, and does not currently have, any weight loss, malaise, fever, chills, headache, chest pain, chest pressure, palpitations, cough, shortness of breath, orthopnea, paroxsymal nocturnal dyspnea, nausea, vomiting, diarrhea, constipation, melena, hematochezia, urinary difficulties, prolonged bleeding, easily bruising, heat or cold intolerance, new onset joint pain or swelling, new onset extremity weakness or numbness, new onset auditory or visual disturbances, lightheadedness, dizziness, partial loss of consciousness or full loss of consciousness. Current Outpatient Medications Medication Sig semaglutide (OZEMPIC) 0.25 mg or 0.5 mg(2 mg/1.5 mL) pen Inject 0.25 mg subcutaneously one time a week for 28 days. leflunomide (ARAVA) 20 mg tablet Take 1 tablet by mouth once daily. metFORMIN ER (GLUCOPHAGE XR) 500 mg 24 hr tablet Take 2 tablets by mouth daily with breakfast. potassium chloride (K-TAB) 10 mEq tablet as needed. Only takes if takes hydrochlorothiazide Cholecalciferol, Vitamin D3, 25 mcg (1,000 unit) cap Take 1,000 Units by mouth once daily. amLODIPine (NORVASC) 10 mg tablet Take 10 mg by mouth once daily. simvastatin (ZOCOR) 10 mg tablet Take 10 mg by mouth daily at bedtime. cyclobenzaprine (FLEXERIL) 10 mg tablet Take 5 mg by mouth at bedtime as needed. hydroCHLOROthiazide 12.5 mg capsule Take 12.5 mg by mouth once daily. lisinopril (ZESTRIL, PRINIVIL) 20 mg tablet Take 1 tablet by mouth once daily. levothyroxine (SYNTHROID) 75 mcg tablet Take 75 mcg by mouth once daily. No current facility-administered medications for this visit. Physical Exam Vitals: There were no vitals taken for this visit. Psych: Pleasant, good affect and mood General Appearance: Well appearing, alert, in no acute distress, well-hydrated, well nourished.. Skin: Skin color, texture, turgor normal, no suspicious rashes or lesions. Peripheral Pulses: Normal. Neurologic: Gait normal. Reflexes normal and symmetric. Sensation grossly intact.. Lymph Nodes: No cervical lymphadenopathy, No supraclavicular lymphadenopathy, No axillary lymphadenopathy., and No inguinal lymphadenopathy.. Respiratory: No recent pulmonary infection, hemoptysis, chronic cough, or shortness of breath at rest Rheumatologic: Joint deformities: left knee pain Right Knee Exam Right knee exam is normal. Muscle Strength The patient has normal right knee strength. Tenderness The patient is experiencing no tenderness. Range of Motion Extension: normal Flexion: normal Tests Misha: Anterior - negative Posterior - negative Drawer: Anterior - negative Posterior - negative Other Erythema: absent Sensation: normal Pulse: present Swelling: none Left Knee Exam Tenderness The patient is experiencing tenderness in the medial joint line. Range of Motion Extension: normal Flexion: normal Tests Karissa: Medial - positive Misha: Anterior - negative Posterior - negative Drawer: Anterior - negative Posterior - negative Other Erythema: absent Sensation: normal Pulse: present Swelling: mild Comments: Neg homans bilaterally Assessment and Plan Radiographs: No imaging to review. Impression: Encounter Diagnosis ICD-10-CM 1. Chronic pain of left knee M25.562 MRI KNEE WO IVCON LT G89.29 2. Tear of medial meniscus of left knee, current, unspecified tear type, initial encounter S83.242A MRI KNEE WO IVCON LT Today, in detail, through a thorough evaluation, we discussed possible etiologies of pain and our plans for further diagnostic and therapeutic interventions. We discussed strategies for decreasing pain and improving strength, stability and motion. Patient's questions were answered in detailed. Patient verbalizes understanding and agrees with the treatment plan as discussed. Mri for preop eval left knee as cont pain despite weight loss, nsaids, exer (more content not included)... [facility] 10-22-2022 History of Present illness Narrative Images from the original note were not included. Follow Up Visit Chief Complaint Germán Martinez is a 57 year old female who presents today for follow up office visit. Patient presents with: Left Knee - Established Patient, Knee Pain History of Present Illness PAIN EVALUATION 10/15/2022202110/22/2022 1121 Pain Level: 6 5 Pain Location: Knee-Left Knee-Left Description: Burning;Pressure;Sharp;Stiffness Burning;Pressure;Stiffness;Aching Duration Amount of Time: -- 1 Duration Units: Weeks Months Frequency: Continuous Continuous Intervention/Comfort measure: -- Medication;Cold;Relaxation Comments: Try icing ,tens don t help bio freeze, injections HPI: Germán Martinez is a 57 year old female for a follow up visit L knee pain. Pt feels a pop when walking. Pain history is noted as above. Is there any overall improvement in your condition? No Any new injury, since being seen last: No REVIEW OF SYMPTOMS: Patient did not have, and does not currently have, any weight loss, malaise, fever, chills, headache, chest pain, chest pressure, palpitations, cough, shortness of breath, orthopnea, paroxsymal nocturnal dyspnea, nausea, vomiting, diarrhea, constipation, melena, hematochezia, urinary difficulties, prolonged bleeding, easily bruising, heat or cold intolerance, new onset joint pain or swelling, new onset extremity weakness or numbness, new onset auditory or visual disturbances, lightheadedness, dizziness, partial loss of consciousness or full loss of consciousness. Current Outpatient Medications Medication Sig semaglutide (OZEMPIC) 0.25 mg or 0.5 mg(2 mg/1.5 mL) pen Inject 0.25 mg subcutaneously one time a week for 28 days. leflunomide (ARAVA) 20 mg tablet Take 1 tablet by mouth once daily. metFORMIN ER (GLUCOPHAGE XR) 500 mg 24 hr tablet Take 2 tablets by mouth daily with breakfast. potassium chloride (K-TAB) 10 mEq tablet as needed. Only takes if takes hydrochlorothiazide Cholecalciferol, Vitamin D3, 25 mcg (1,000 unit) cap Take 1,000 Units by mouth once daily. amLODIPine (NORVASC) 10 mg tablet Take 10 mg by mouth once daily. simvastatin (ZOCOR) 10 mg tablet Take 10 mg by mouth daily at bedtime. cyclobenzaprine (FLEXERIL) 10 mg tablet Take 5 mg by mouth at bedtime as needed. hydroCHLOROthiazide 12.5 mg capsule Take 12.5 mg by mouth once daily. lisinopril (ZESTRIL, PRINIVIL) 20 mg tablet Take 1 tablet by mouth once daily. levothyroxine (SYNTHROID) 75 mcg tablet Take 75 mcg by mouth once daily. No current facility-administered medications for this visit. Physical Exam Vitals: There were no vitals taken for this visit. Psych: Pleasant, good affect and mood General Appearance: Well appearing, alert, in no acute distress, well-hydrated, well nourished.. Skin: Skin color, texture, turgor normal, no suspicious rashes or lesions. Peripheral Pulses: Normal. Neurologic: Gait normal. Reflexes normal and symmetric. Sensation grossly intact.. Lymph Nodes: No cervical lymphadenopathy, No supraclavicular lymphadenopathy, No axillary lymphadenopathy., and No inguinal lymphadenopathy.. Respiratory: No recent pulmonary infection, hemoptysis, chronic cough, or shortness of breath at rest Rheumatologic: Joint deformities: left knee pain Right Knee Exam Right knee exam is normal. Muscle Strength The patient has normal right knee strength. Tenderness The patient is experiencing no tenderness. Range of Motion Extension: normal Flexion: normal Tests Misha: Anterior - negative Posterior - negative Drawer: Anterior - negative Posterior - negative Other Erythema: absent Sensation: normal Pulse: present Swelling: none Left Knee Exam Tenderness The patient is experiencing tenderness in the medial joint line. Range of Motion Extension: normal Flexion: normal Tests Karissa: Medial - positive Misha: Anterior - negative Posterior - negative Drawer: Anterior - negative Posterior - negative Other Erythema: absent Sensation: normal Pulse: present Swelling: mild Comments: Neg homans bilaterally Assessment and Plan Radiographs: No imaging to review. Impression: Encounter Diagnosis ICD-10-CM 1. Chronic pain of left knee M25.562 MRI KNEE WO IVCON LT G89.29 2. Tear of medial meniscus of left knee, current, unspecified tear type, initial encounter S83.242A MRI KNEE WO IVCON LT Today, in detail, through a thorough evaluation, we discussed possible etiologies of pain and our plans for further diagnostic and therapeutic interventions. We discussed strategies for decreasing pain and improving strength, stability and motion. Patient's questions were answered in detailed. Patient verbalizes understanding and agrees with the treatment plan as discussed. Mri for preop eval left knee as cont pain despite weight loss, nsaids, exercise program,etc F/u after MRI left knee Patient aware and in agreement of plan. All questions answered. documented in this encounter [facility] 09-28-2022 Miscellaneous Notes Pharmacy sent a [employer] message requesting the following refill. Requested Prescriptions Pending Prescriptions Disp Refills semaglutide (OZEMPIC) 0.25 mg or 0.5 mg(2 mg/1.5 mL) pen 1 mL 0 Sig: Inject 0.25 mg subcutaneously one time a week for 28 days. Next Appointment: 11/27/2022 Patient Phone numbers: [phone] (home) Request is for script(s) to be escript to pharmacy. Fidelina Garay Ma documented in this encounter [facility] 09-10-2022 History of Present illness Narrative Associated Order(s): Small Joint Arthro/Inj: L long MCP Post-Procedure Diagnose(s): Arthritis of finger of right hand Miguelito Wong MD Department of Orthopaedics Orthopaedics [address] [facility] [address] Dept: [phone] Dept September 10, 2022 CHIEF COMPLAINT: Established Patient and Pain of the Right Hand and Last seen 08/18/21 S/P Left thumb CMC arthroplasty (with LRTI and pinning ) HPI Intake information documented in the prior visit with Dr. Fish on 09/07/22 virtual visit. Patient states she is having pain on the top of her hand at her 3rd . Patient states she was Dr. Caldwell on 04/22/22 and he gave her an injection. Helped for about 5 months. She is having some swelling in her hand in the mornings. Taking Tylenol and Flexeril for the pain and helps some. X-rays done today. Patient is right hand dominant. ASSESSMENT: M19.041 Arthritis of finger of right hand (primary encounter diagnosis) PLAN: we discussed repeat injection with US guidance vs anatomic landmark, and she would rather try an injection in the office here as opposed to the travel, time, etc. Ms. Germán Martinez was advised as to contrast therapies and/or to take analgesics/anti-inflammatories as needed and all contraindications were reviewed. OBJECTIVE: Ms. Germán Martinez is a pleasant 57 year old in no apparent distress. Gen:There were no vitals taken for this visit. nl development, obese, no deformities ENT: Normocephalic, normal hearing, moist mucosa CV: Pulses:Radial= 2+ and symmetric, capillary refill < 2 secs, no peripheral edema/varicosities Skin: no rash, bruising or lesions. Good turgor. Psych: cooperative and appropriate, alert and oriented x 3, good mood and affect. Musculoskeletal: Mild swelling, TTP at the middle, MCP. Mild limitation of motion in flexion compared to other digits. Small Joint Arthro/Inj: L long MCP Informed Consent Consent Obtained: Verbal [place] Protocol A moment to CARE was completed. SIGN IN Personnel directly involved with the procedure wore the appropriate PPE. Special Equipment: N/A Patient/Surrogate Stated/Verified: Patient name, Date of , Relevant allergies and Intended procedure TIME OUT Intended patient and procedure match the source document(s). Consent documented and matches the intended procedure. Relevant labs, photos, and/or imaging studies have been reviewed. Correct side/site marked and visible. Medications required for procedure verified. No fire risk assessment and interventions applicable. No implant(s) inserted. 09/10/2022 4:37 PM The procedure site was prepped in the usual sterile fashion. Medications: 3 mg betamethasone acetate-betamethasone sodium phosphate 6 mg/mL Anesthetics: 0.5 mL lidocaine (PF) 10 mg/mL (1 %) Outcome: tolerated well, no immediate complications Post-injection instructions were reviewed with the patient and the patient voiced understanding of these instructions. SIGN OUT No specimen collected. No instruments, equipment or retained foreign bodies applicable. Post-procedure follow-up management communicated and Plan of Care Visit completed when applicable Imaging: IMPRESSION: Mild osteoarthritis. 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 Date/Time: Sep 11 2022 11:36A Dictated by : MELVIN SHERIFF DO This examination was interpreted and the report reviewed and electronically signed by: MELVIN SHERIFF DO on Sep 11 2022 11:40AM EST Results-Findings * * *Final Report* * * DATE OF EXAM: Sep 09 2022 8:19AM WOX 5346 - XR HAND 3V PA/LAT/OBL RT / PROCEDURE REASON: Pain of right hand * * * * Physician Interpretation * * * * EXAMINATION: XR HAND 3V PA/LAT/OBL RT PATIENT/TECHNOLOGIST PROVIDED HISTORY: pain for 2 years distal third MC no recent inj CLINICAL INFORMATION: 57 years old Female with Pain of right hand TECHNIQUE: XR HAND 3V PA/LAT/OBL RT Laterality: RIGHT Number of different views (projections): 3 COMPARISON: None RESULT: Mild degenerative change first CMC joint, first through third CMC joints and mild scattered degenerative changes at the interphalangeal joints. Ulnar negative variance. No fracture, erosions or other significant abnormality. Supporting Subjective Information Below: Past Surgical History: PAST SURGICAL HISTORY Procedure Laterality Date ARTHRP INTERPOS INTERCARPAL/METACARPAL JOINTS Left 06/18/2021 Left thumb CMC arthroplasy with LRTI and percutaneous pinning left thumb MCPJ CONIZATION CERVIX W/WO D&C RPR ELTRD EXC 09/20/1997 LEEP-Cervix SLING OPER STRES INCONTINENCE 09/20/2001 TONSILLECTOMY PRIMARY/SECONDARY <AGE 12 09/20/1969 Tonsillectomy Medications: Current Outpatient Medications Medication Sig leflunomide (ARAVA) 20 mg tablet Take 1 tablet by mouth once daily. semaglutide (OZEMPIC) 0.25 mg or 0.5 mg(2 mg/1.5 mL) pen Inject 0.25 mg subcutaneously one time a week. metFORMIN ER (GLUCOPHAGE XR) 500 mg 24 hr tablet Take 2 tablets by mouth daily with breakfast. potassium chloride (K-TAB) 10 mEq tablet as needed. Only takes if takes hydrochlorothiazide Cholecalciferol, Vitamin D3, 25 mcg (1,000 unit) cap Take 1,000 Units by mouth once daily. amLODIPine (NORVASC) 10 mg tablet Take 10 mg by mouth once daily. simvastatin (ZOCOR) 10 mg tablet Take 10 mg by mouth daily at bedtime. cyclobenzaprine (FLEXERIL) 10 mg tablet Take 5 mg by mouth at bedtime as needed. hydroCHLOROthiazide 12.5 mg capsule Take 12.5 mg by mouth once daily. lisinopril (ZESTRIL, PRINIVIL) 20 mg tablet Take 1 tablet by mouth once daily. levothyroxine (SYNTHROID) 75 mcg tablet Take 75 mcg by mouth once daily. No current facility-administered medications for this visit. Allergies: Codeine, Duloxetine, Hydroxychloroquine, Meloxicam, Tapazole [Methimazole], and Vicodin [Hydrocodone-Acetaminophen] ROS: General (negative for fatigue, malaise, weight loss/gain) HEENT (negative for headache, earache, recent vision changes, sinus pain, sore throat) Respiratory (no recent shortness of breath, hemoptysis) CV (negative for chest tightness, palpitations) Musculoskeletal (see HPI) Psych (no depression, anxiety) Miguelito Wong MD documented in this encounter [facility] 09-07-2022 Note HNO ID: [id number] Author: Kaelyn Fish MD Service: ? Author Type: Physician Type: Progress Notes Filed: 09/07/2022 11:56 AM Note Text: VIRTUAL VISIT PROGRESS NOTE This is a virtual visit using [employer] video visit. It required patient-provider interaction for the medical decision making as documented below. Germán Martinez is a 57 year old female seen for RA. Lost more weight. On Ozempic. Doing well. Denies NSAIDs. Just taking Flexeril. Just recovered from covid Arava Thumb surgery [facility] CMC 1 left- doing well, in OT, some residual numbness, working on this No red eyes, doing well. Had covid booster- did well Brief Rheumatological history - She was diagnosed with RA in 2012. Had symptoms of foot pain several years prior to that. She was seen by Dr. Amador Sterling did not help. Plaquenil caused rash. She also tried several other medications which did not help. cannot remember the names She was unable to follow up due to insurance conflicts. She took turmeric. Never been on infusions. Not been on RA meds since 3 years. After covid shot she noticed more pain in joints, redness in eyes and redness in legs. Hand swelling. She was diagnosed with Episcleritis, treated with steroids. That helped with hand swelling and she was able to make a fist. Patient with chronic hives. Notes from previous chills. Patient has been on Treximet 12.5 mg once a week, folic acid 2 mg, Xeljanz, tramadol 50 mg 3 times a day as needed. She underwent fusion of right midfoot. Had MRI of right shoulder. She follows up with Dr. WHELAN. Pain management doctor [facility] BKA stopped hydroxychloroquine due to rash Tylenol and ibuprofen did not negative rheumatoid for the liver showing fatty liver. Coexisting fibromyalgia. Vectra score in 1999 1555 showing high disease activity. She had syncope and fell Right ankle injury, surgery 5 years ago Family history of autoimmune disease: grandmother with RA, colitis Smoking status: Tobacco Use: .25 packs/day, for 25 years. Types: Cigarettes (2-3 packs a week) HISTORY REVIEWED (electronic chart updated): PAST MEDICAL HISTORY Diagnosis Date Cervical stenosis of spine states receives injections every 4 months Rheumatoid arthritis (HCC) Unspecified hypothyroidism PAST SURGICAL HISTORY Procedure Laterality Date ARTHRP INTERPOS INTERCARPAL/METACARPAL JOINTS Left 06/18/2021 Left thumb CMC arthroplasy with LRTI and percutaneous pinning left thumb MCPJ CONIZATION CERVIX W/WO DANDC RPR ELTRD EXC 09/20/1997 LEEP-Cervix SLING OPER STRES INCONTINENCE 09/20/2001 TONSILLECTOMY PRIMARY/SECONDARY Tonsillectomy FAMILY HISTORY Problem Relation Age of Onset Diabetes Mother Hypertension Mother Stroke Paternal Grandfather Diabetes Maternal Grandmother Social History Tobacco Use Smoking status: Former Packs/day: 0.25 Years: 25.00 Pack years: 6.25 Types: Cigarettes Smokeless tobacco: Never Tobacco comments: 2-3 packs a week Vaping Use Vaping Use: Never used Substance Use Topics Alcohol use: Yes Comment: very rare Drug use: No Current Outpatient Medications Medication Sig leflunomide (ARAVA) 20 mg tablet Take 1 tablet by mouth once daily. semaglutide (OZEMPIC) 0.25 mg or 0.5 mg(2 mg/1.5 mL) pen Inject 0.25 mg subcutaneously one time a week. metFORMIN ER (GLUCOPHAGE XR) 500 mg 24 hr tablet Take 2 tablets by mouth daily with breakfast. potassium chloride (K-TAB) 10 mEq tablet as needed. Only takes if takes hydrochlorothiazide Cholecalciferol, Vitamin D3, 25 mcg (1,000 unit) cap Take 1,000 Units by mouth once daily. amLODIPine (NORVASC) 10 mg tablet Take 10 mg by mouth once daily. simvastatin (ZOCOR) 10 mg tablet Take 10 mg by mouth daily at bedtime. cyclobenzaprine (FLEXERIL) 10 mg tablet Take 5 mg by mouth at bedtime as needed. hydroCHLOROthiazide 12.5 mg capsule Take 12.5 mg by mouth once daily. lisinopril (ZESTRIL, PRINIVIL) 20 mg tablet Take 1 tablet by mouth once daily. levothyroxine (SYNTHROID) 75 mcg tablet Take 75 mcg by mouth once daily. No current facility-administered medications for this visit. ALLERGIES Allergen Reactions Codeine Vomiting Duloxetine Other: See Comments Hydroxychloroquine Rash Meloxicam Other: See Comments Kidney function elevated Tapazole [Methimazo* Rash Vicodin [Hydrocodon* Itching REVIEW OF SYSTEMS: All other ROS: negative As noted in HPI PHYSICAL EXAMINATION: VIDEO EXAM: (if completed, performed via video enabled technology) GENERAL: alert and appropriate, in no distress, well-hydrated, well nourished, and happy, smiling, interactive 01/2022 Cr 1.16 Serology: ESR, CRP TB, Hep normal Radiology: IMPRESSION: Findings are suggestive of degenerative changes of the right knee with small joint effusion. 2020 - normal BMD Latest Reference Range AND Units 01/12/22 12:20 01/30/22 10:43 05/19/22 14:49 Creatinine 0.58 - 0.96 mg/dL 0.74 1.16 ( (more content not included)... [facility] 09-07-2022 History of Present illness Narrative VIRTUAL VISIT PROGRESS NOTE This is a virtual visit using [employer] video visit. It required patient-provider interaction for the medical decision making as documented below. Germán Martinez is a 57 year old female seen for RA. Lost more weight. On Ozempic. Doing well. Denies NSAIDs. Just taking Flexeril. Just recovered from covid Arava Thumb surgery [facility] CMC 1 left- doing well, in OT, some residual numbness, working on this No red eyes, doing well. Had covid booster- did well Brief Rheumatological history - She was diagnosed with RA in 2012. Had symptoms of foot pain several years prior to that. She was seen by Dr. Amador Sterling did not help. Plaquenil caused rash. She also tried several other medications which did not help. cannot remember the names She was unable to follow up due to insurance conflicts. She took turmeric. Never been on infusions. Not been on RA meds since 3 years. After covid shot she noticed more pain in joints, redness in eyes and redness in legs. Hand swelling. She was diagnosed with Episcleritis, treated with steroids. That helped with hand swelling and she was able to make a fist. Patient with chronic hives. Notes from previous chills. Patient has been on Treximet 12.5 mg once a week, folic acid 2 mg, Xeljanz, tramadol 50 mg 3 times a day as needed. She underwent fusion of right midfoot. Had MRI of right shoulder. She follows up with Dr. WHELAN. Pain management doctor [facility] BKA stopped hydroxychloroquine due to rash Tylenol and ibuprofen did not negative rheumatoid for the liver showing fatty liver. Coexisting fibromyalgia. Vectra score in 1999 1555 showing high disease activity. She had syncope and fell Right ankle injury, surgery 5 years ago Family history of autoimmune disease: grandmother with RA, colitis Smoking status: Tobacco Use: .25 packs/day, for 25 years. Types: Cigarettes (2-3 packs a week) HISTORY REVIEWED (electronic chart updated): PAST MEDICAL HISTORY Diagnosis Date Cervical stenosis of spine states receives injections every 4 months Rheumatoid arthritis (HCC) Unspecified hypothyroidism PAST SURGICAL HISTORY Procedure Laterality Date ARTHRP INTERPOS INTERCARPAL/METACARPAL JOINTS Left 06/18/2021 Left thumb CMC arthroplasy with LRTI and percutaneous pinning left thumb MCPJ CONIZATION CERVIX W/WO D&C RPR ELTRD EXC 09/20/1997 LEEP-Cervix SLING OPER STRES INCONTINENCE 09/20/2001 TONSILLECTOMY PRIMARY/SECONDARY <AGE 12 09/20/1969 Tonsillectomy FAMILY HISTORY Problem Relation Age of Onset Diabetes Mother Hypertension Mother Stroke Paternal Grandfather Diabetes Maternal Grandmother Social History Tobacco Use Smoking status: Former Packs/day: 0.25 Years: 25.00 Pack years: 6.25 Types: Cigarettes Smokeless tobacco: Never Tobacco comments: 2-3 packs a week Vaping Use Vaping Use: Never used Substance Use Topics Alcohol use: Yes Comment: very rare Drug use: No Current Outpatient Medications Medication Sig leflunomide (ARAVA) 20 mg tablet Take 1 tablet by mouth once daily. semaglutide (OZEMPIC) 0.25 mg or 0.5 mg(2 mg/1.5 mL) pen Inject 0.25 mg subcutaneously one time a week. metFORMIN ER (GLUCOPHAGE XR) 500 mg 24 hr tablet Take 2 tablets by mouth daily with breakfast. potassium chloride (K-TAB) 10 mEq tablet as needed. Only takes if takes hydrochlorothiazide Cholecalciferol, Vitamin D3, 25 mcg (1,000 unit) cap Take 1,000 Units by mouth once daily. amLODIPine (NORVASC) 10 mg tablet Take 10 mg by mouth once daily. simvastatin (ZOCOR) 10 mg tablet Take 10 mg by mouth daily at bedtime. cyclobenzaprine (FLEXERIL) 10 mg tablet Take 5 mg by mouth at bedtime as needed. hydroCHLOROthiazide 12.5 mg capsule Take 12.5 mg by mouth once daily. lisinopril (ZESTRIL, PRINIVIL) 20 mg tablet Take 1 tablet by mouth once daily. levothyroxine (SYNTHROID) 75 mcg tablet Take 75 mcg by mouth once daily. No current facility-administered medications for this visit. ALLERGIES Allergen Reactions Codeine Vomiting Duloxetine Other: See Comments Hydroxychloroquine Rash Meloxicam Other: See Comments Kidney function elevated Tapazole [Methimazo* Rash Vicodin [Hydrocodon* Itching REVIEW OF SYSTEMS: All other ROS: negative As noted in HPI PHYSICAL EXAMINATION: VIDEO EXAM: (if completed, performed via video enabled technology) GENERAL: alert and appropriate, in no distress, well-hydrated, well nourished, and happy, smiling, interactive 01/2022 Cr 1.16 Serology: ESR, CRP TB, Hep normal Radiology: IMPRESSION: Findings are suggestive of degenerative changes of the right knee with small joint effusion. 2020 - normal BMD Latest Reference Range & Units 01/12/22 12:20 01/30/22 10:43 05/19/22 14:49 Creatinine 0.58 - 0.96 mg/dL 0.74 1.16 (H) 1.27 (H) (H): Data is abnormally high ASSESSMENT: (M06.9) Rheumatoid arthritis involving multiple sites, unspecified whether rheumatoid factor present (HCC) (Z79.899) High risk medication use (M17.0) Primary osteoarthritis of both knees PLAN: 57-year-old female with prior diagnosis of seronegative rheumatoid arthritis, fibromyalgia, osteoarthritis is here to establish care. Patient was on multiple immunosuppressive medication and reports lack of benefit. She also has pain due to osteoarthritis and had several surgeries in the past. Recent episode started in bilateral hands along with swelling concerning for synovitis, improvement with prednisone, episcleritis treated with steroids, rash in lower extremities after Covid vaccination. She has not been on immunosuppression for last 3 years. Her presentation is concerning for rheumatoid arthritis. Also discussed about different etiologies of pain in her including osteoarthritis and fibromyalgia which does not respond to immunosuppression. May consider combination treatment going forward. Short course of steroids. She reports h/o insulin resistance. Trying to lose weight. Seeing obesity medicine, on medication to help. Pain currently due to OA. Gets injections right MCP 3 and right knee. Recent XR shows OA left knee, seeing ortho soon, may need inj as well RA seems stable. Labs every 3 months. Continue Arava. Bump in creatinine when she was taking Mobic. Improved when she stopped per the patient. There are no Patient Instructions on file for this visit. I spent a total of 20 minutes on the date of the service which included preparing to see the patient, [id number] patient care, completing clinical documentation, obtaining and/or reviewing separately obtained history, performing a medically appropriate examination, ordering medications, tests, or procedures, and communicating results to the patient/family/caregiver Kaelyn Fish MD No orders found for this visit on 09/07/22. Orders Placed This Encounter leflunomide (ARAVA) 20 mg tablet Sig: Take 1 tablet by mouth once daily. Dispense: 30 tablet Refill: 2 Platform used - my chart documented in this encounter [facility] 08-27-2022 Instructions Yen Abernathy MD - 08/27/2022 11:48 AM EST TRYING TO LOSE WEIGHT? Your Body mass index is 35.53 kg/m . (Target BMI: 19-25) A person with a BMI between 25 and 29.9 is considered overweight A person with a BMI of 30 or greater is considered to be obese SETTING A WEIGHT LOSS GOAL: Last 5 Encounter Wt Readings: Date: Wt: 08/27/2022 93.9 kg (207 lb) 06/10/2022 97.1 kg (214 lb) 05/18/2022 99.8 kg (220 lb) 05/11/2022 100.9 kg (222 lb 6.4 oz) 04/23/2022 99.3 kg (219 lb) Lose 10% of body weight over six months, about 1-2 lbs per week LIFESTYLE CHANGES -- The goals of lifestyle changes are to help you change your eating habits, become more active, and be more aware of how much you eat and exercise, helping you to make healthier choices. This can be broken down into three steps: 1. Triggers to eat -- Determining what triggers you to eat involves figuring out what foods you eat and where and when you eat. To figure out what triggers you to eat, keep a record for a few days of everything you eat, the places where you eat, how often you eat, and the emotions you were feeling when you ate. For some people, the trigger is related to a certain time of day or night. For others, the trigger is related to a certain place, like sitting at a desk working. 2. Eating -- You can change your eating habits by breaking the chain of events between the trigger for eating and eating itself. There are many ways to do this. For instance, you can: Limit where you eat to a few places (eg, dining room) Restrict the number of utensils (eg, only a fork) used for eating Drink a sip of water between each bite Chew your food a certain number of times Get up and stop eating every few minutes 3. What happens after you eat -- Rewarding yourself for good eating behaviors can help you to develop better habits. This is not a reward for weight loss; instead, it is a reward for changing unhealthy behaviors. Do not use food as a reward. Some people find money, clothing, or personal care (eg, a hair cut, manicure, or massage) to be effective rewards. Treat yourself immediately after making better eating choices to reinforce the value of the good behavior. You need to have clear behavior goals, and you must have a time frame for reaching your goals. Reward small changes along the way to your final goal. Other factors that contribute to successful weight loss -- Establish a luanne system -- Having a friend or family member available to provide support and reinforce good behavior is very helpful. The support person needs to understand your goals. Learn to be strong -- Learning to be strong when tempted by food is an important part of losing weight. As an example, you will need to learn how to say no and continue to say no when urged to eat at parties and social gatherings. Develop strategies for events before you go, such as eating before you go or taking low-calorie snacks and drinks with you. Develop a support system -- Having a support system is helpful when losing weight. This is why many commercial groups are successful. Family support is also essential; if your family does not support your efforts to lose weight, this can slow your progress or even keep you from losing weight. Positive thinking -- People often have conversations with themselves in their head; these conversations can be positive or negative. If you eat a piece of cake that was not planned, you may respond by thinking, Oh, you stupid idiot, you've blown your diet! and as a result, you may eat more cake. A positive thought for the same event could be, Well, I ate cake when it was not on my plan. Now I should do something to get back on track. A positive approach is much more likely to be successful than a negative one. Reduce stress -- Although stress is a part of everyday life, it can trigger uncontrolled eating in some people. It is important to find a way to get through these difficult times without eating or by eating low-calorie food, like raw vegetables. It may be helpful to imagine a relaxing place that allows you to temporarily escape from stress. With deep breaths and closed eyes, you can imagine this relaxing place for a few minutes. Self-help programs -- Self-help programs like Weight Watchers , Overeaters Anonymous , and Take Off Pounds Sensibly (TOPS) work for some people. As with all weight loss programs, you are most likely to be successful with these plans if you make long-term changes in how you eat. CHOOSING A DIET -- A calorie is a unit of energy found in food. Your body needs calories to function. The goal of any diet is to burn up more calories than you eat. How quickly you lose weight depends upon several factors, such as your age, gender, and starting weight. Older people have a slower metabolism than young people, so they lose weight more slowly. Men lose more weight than women of similar height and weight when dieting because they use more energy. People who are extremely overweight lose weight more quickly than those who are only mildly overweight. How many calories do I need? -- You can estimate the number of calories you need per day based upon your current (or target) weight, gender, and activity level for women and for men. In general, it is best to choose foods that contain enough protein, carbohydrates, essential fatty acids, and vitamins. Try not to drink alcohol or drinks with added sugar, and most sweets (candy, cakes, cookies), since they rarely contain important nutrients. Portion-controlled diets -- One simple way to diet is to buy packaged foods, like frozen low-calorie meals or meal-replacement canned drinks. A typical meal plan for 1000 to 1500 calories per day may include: A meal-replacement drink or breakfast bar for breakfast A meal-replacement drink or a frozen low-calorie (250 to 350 calories) meal for lunch A frozen low-calorie meal or other prepackaged, calorie-controlled meal, along with extra vegetables for dinner Low-fat diet -- To reduce the amount of fat in your diet, you can: Eat low-fat foods. Low-fat foods are those that contain less than 30 percent of calories from fat. Fat is listed on the food facts label Count fat grams. For a 1500 calorie diet, this would mean about 45 g or fewer of fat per day. Low-carbohydrate diet -- Low- and wpiy-ved-zislfhcurcfk diets (eg, Atkins diet, [employer] diet) have become popular ways to lose weight quickly. With a gqvx-kkm-mzcmttapgbrf diet, you eat between 0 and 60 grams of carbohydrates per day (a standard diet contains 200 to 300 grams of carbohydrates) With a low-carbohydrate diet, you eat between 60 and 130 grams of carbohydrates per day Carbohydrates are found in fruits, vegetables, and grains (including breads, rice, pasta, and cereal), alcoholic beverages, and in dairy products. Meat and fish do not contain carbohydrates. Side effects of bgrd-rmr-bymgvtwctuwp diets can include constipation, headache, bad breath, muscle cramps, diarrhea, and weakness. Mediterranean diet -- The term Mediterranean diet refers to a way of eating that is common in olive-growing regions around the [place] Sea. Although there is some variation in Mediterranean diets, there are some similarities. Most Mediterranean diets include: A high level of monounsaturated fats (from olive or canola oil, walnuts, pecans, almonds) and a low level of saturated fats (from butter) A high amount of vegetables, fruits, legumes, and grains (7 to 10 servings of fruits and vegetables per day) A moderate amount of milk and dairy products, mostly in the form of cheese. Use low-fat dairy products (skim milk, fat-free yogurt, low-fat cheese). A relatively low amount of red meat and meat products. Substitute fish or poultry for red meat. For those who drink alcohol, a modest amount (mainly as red wine) may help to protect against cardiovascular disease. A modest amount is up to one (4 ounce) glass per day for women and up to two glasses per day for men. Which diet is best? -- No one diet is best for weight loss. Any diet will help you to lose weight if you stick with the diet. Therefore, it is important to choose a diet that includes foods you like. Fad diets -- Fad diets often promise quick weight loss (more than 1 to 2 pounds per week) and may claim that you do not need to exercise or give up favorite foods. Some fad diets cost a lot of money, because you have to pay for seminars or pills. Fad diets generally lack any scientific evidence that they are safe and effective, but instead rely on before and after photos or testimonials. Diets that sound too good to be true usually are. These plans are a waste of time and money and are not recommended. A doctor, nurse, or wood heel fitter machine can help you find a safe and effective way to lose weight and keep it off. Adapted from [facility] My opinion 3 hour Rule: -last meal /snack 3 hours before sleeping ,but mostly try to be done by 7 pm --eat Rich Breakfast, high in protein hard boiled eggs/protein drinks - At least 3 hours break between each meals ,except water --sleep 7 hours at night , that means going to bed early -- drink only water ( no soda or juices) /no Alcohol consumption --cut down on coffee consumption if consuming high amounts Website :You can visit to web site for low carb recipe information as well as visual guide to low carb food: Https://www.dietdoctor.nuMVC/ ( visual guide for low carb diet) Limit carb consumption to 80- 100 grams per day. Goals: formal exercise 2-5 x/week as tolerated, start with 10 mins/day to goal of 30 minutes ( -- for exercise, you should shoot for a goal of >150 min per week initially. Depending at what level you are starting, that may seem like an unachievable task. However, the best plan is to just begin to walk or bike or do another activity that you like and track your steps per day. You do not need to pay attention to the time, but you do need to try to increase your exercise every 3 weeks. Other strength exercises, using light weights or training bands may also be useful, especially when combined with regular aerobic exercise. Studies have shown that >200min per week is best to maintain weight loss, so that would be the overall end goal.) Have 3 meals a day-protein source with each meal (structured meal planning) Food journal daily and bring it to all appointments If you want you can REPLACE one of your meals with a liquid meal or frozen meal. This is easy to start and may help with your weight. 1. Liquid meal replacement (Boost, Ensure) 2. Frozen meal (Healthy Choice, Lean Cuisine - sodium under 650mg, can always add veggies to the meal) 3. Powdered protein (Premier Protein) or meal replacement (I like a plant based meal replacement called [employer] - can mix w froz berries and almond milk) -- IN GENERAL - suggestions based on important of our sleep cycle called circadian rhythm and its influence on our gut microbiota and overall health tragetory 1) EAT MOST OF YOUR FOOD IN AM AND EARLY PM 2) NO EATING AT NIGHT 3) EXERCISE DURING DAY 4) BE CONSISTENT WITH MEAL STRUCTURE ie Meals at same time during the day. -- keep record of your food intake - it is easier for us to understand your eating habits and food preferences, looking into the amounts of protein, carbs, and fat in your diet. Good examples of apps to track calories are [employer], LOSE IT. Some patient have found FOODUCATE to help with decisions around food, however choose apps that best suits you. - Rx metformin, risks and benefits discussed at length. The pt understands the potential side effects (including gastrointestinal problems) and is instructed to increase the dose as tolerated. documented in this encounter [facility] 08-27-2022 History of Present illness Narrative Images from the original note were not included. Yen Abernathy MD [facility] [address] [facility], [address] [facility] - Fourth Floor [place] [address] This Team Access Model visit is a virtual visit due to COVID -19 Pandemic . It required patient-provider interaction for the medical decision making as documented below. Consent was obtained to complete today's distance health visit. Germán Martinez is a 57 year old female with PMH of DUNG, hypothyroidism, RA, hypertension, prediabetes* here today for a follow up on her weight loss efforts. She is currently taking the prescription weight loss medication Topiramate Concerns: stopped Topamax --as she is developing cataract She is continuing with diet changes: yes -Main focus of dietary changes: Stop snacking and grazing She is continuing with exercise changes: yes -Exercise routine: increased walking and has been doing some strength work out with weights Getting core training Goal weight:150 pound Review of weight loss medication side effects Any GI upset? no Changes to blood pressure? no Visual Changes: no -- Patient reports some suppression of her appetite and increase in satiety since starting the medication Diet: Has been very consistent with her meals. Spacing her meals denies any snacking or grazing. Sleep: Good Stress: Coping better Smoking/Alcohol -denies Review of Systems Constitutional: Negative for malaise/fatigue. HENT: Negative for congestion and tinnitus. Eyes: Negative for blurred vision. Respiratory: Negative for shortness of breath. Cardiovascular: Negative for palpitations, orthopnea and leg swelling. Gastrointestinal: Negative for heartburn, nausea and vomiting. Genitourinary: Negative for dysuria and frequency. Musculoskeletal: Negative for back pain and joint pain. Neurological: Negative for weakness. Psychiatric/Behavioral: The patient does not have insomnia. No previous history of pancreatitis No personal or family history of medullary thyroid cancer No Family history of MEN syndrome S/p thyroid radiation??no cancer VITALS: Ht 162.6 cm (5' 4 ) Wt 93.9 kg (207 lb) LMP (LMP Unknown) BMI 35.53 kg/m , Body mass index is 35.53 kg/m . Physical Exam Constitutional:. --no issues with communication HEENT: Normocephalic and atraumatic. Eyes: Conjunctiva appear normal. No scleral icterus. Hearing: Is grossly intact. Neck: Range of motion appears normal. Thyroid: appears symmetric and not enlarged. Pulmonary/Chest: Effort normal. Psychiatric: Mood, memory, affect and judgment normal. Neurological: alert and oriented to person, place, and time. Impression and Plan: ASSESSMENT/PLAN: 1. Class 3 severe obesity with serious comorbidity in adult, unspecified BMI, unspecified obesity type (HCC) - ICD9: 278.01, ICD10: E66.01 (primary diagnosis) Weight decreasing - Pharmacological intervention and - Behavioral and pharmacological intervention -- counseled in length ,recommended Low carb /low sugar diet --managing maladaptive eating behaviors and adding resistance exercise. Continue low carb diet, weights/cardio exercise and increase NEAT. --Topamax was stopped by his community health worker due to possible risk of cataract development. It is okay to stop topiramate but I am not sure if cataract can develop due to topiramate. -Today after discussion started on GLP-1 agonist Ozempic if covered by insurance. Germán agrees with this plan and verbalizes understanding. 2. Mixed hyperlipidemia - ICD9: 272.2, ICD10: E78.2 - suboptimal control - Encouraged following a low fat, low cholesterol diet. 3. Dietary counseling and surveillance - ICD9: V65.3, ICD10: Z71.3 Reviewed principles of energy metabolism, caloric intake and expenditure, and rationale for treatment program. Also reinforced need for reduced calorie, low fat diet and increased physical activity. 4. Primary hypertension - ICD9: 401.9, ICD10: I10 - suboptimal control - Continue current medication(s) - Recommended regular aerobic exercise. - Recommend home blood pressure monitoring, to bring results in on next visit - Goal of BP <130/80 5. DUNG (obstructive sleep apnea) - ICD9: 327.23, ICD10: G47.33 Counseled on using her CPAP regularly. 6. Acquired hypothyroidism - ICD9: 244.9, ICD10: E03.9 - Instructed patient on importance of taking on an empty stomach either first thing in the morning or at bedtime. Weight decreasing - Behavioral and pharmacological intervention 7. Obstructive sleep apnea syndrome - ICD9: 327.23, ICD10: G47.33 Counseled on using her CPAP regularly. 8. Hypothyroidism, unspecified type - ICD9: 244.9, ICD10: E03.9 - Instructed patient on importance of taking on an empty stomach either first thing in the morning or at bedtime. Weight decreasing - Behavioral and pharmacological intervention 9. Prediabetes - ICD9: 790.29, ICD10: R73.03 -Has been tolerating metformin without any problems after discussion recommended to increase to 1 g - added a GLP-1 agonist. 10. BMI >40 -- Down to BMI 35.53 -- counseled in length ,recommended Low carb /low sugar diet --managing maladaptive eating behaviors and adding resistance exercise. Continue low carb diet, weights/cardio exercise and increase NEAT. Yen Abernathy MD Her weight-related medical comorbidities are improving with weight loss. She is doing well otherwise, continues lifestyle modification. She remains motivated to lose weight. Reviewed principles of energy metabolism, caloric intake and expenditure, and rationale for treatment program. Also reinforced need for reduced calorie, low fat diet and increased physical activity. Yen Abernathy MD Some elements were copied from my last note, which have been updated where appropriate, and all reflect current medical decision making from TODAY History Review: I have reviewed and modified as needed, the following during this visit: Allergies, Past Medical History, Past Surgical History, Past Family History, Past Social History. Counseling Visit 22 minutes for preventive counseling/IBT Screening for obesity completed during initial plan of care. Patient was competent and alert at the time that counseling was provided. 5a's reviewed: Assess- I assessed behavioral health risk/factors affecting --- Asked about/assess behavioral health risk(s) and factors affecting choice of behavior change goals -insulin resistance/metabolic syndrome Several stressors working on her grandkids custody Overall she is doing amazing congratulated her on her weight loss journey. Advise: clear, specific, personalized behavior change advice. -I gave very clear, specific, and personalized behavior change adviced, including information about personal health harms and benefits. Agree: Patient agrees with selected appropriate treatment goals and methods to change behavior Assist:provided IBT w self-help, handouts, teaching skills and support Using behavior change techniques with self-help and Counseling in achieving Goals. Also discussed supplementing with adjunctive medical treatments when appropriate. Arrange- follow up scheduled, Handouts given to patient My opinion -- 3 hour Rule -last meal /snack 3 hours before sleeping ,try to be done by 7 pm --eat Rich Breakfast - At Least 3 hours break between each meals ,except water --sleep 7 hours at night , that means going to bed early -- drink only water ( no soda or juices) /no Alcohol consumption --cut down on coffee consumption if consuming high amounts Website :You can visit to web site for low carb recipe information as well as visual guide to low carb food: [employer] Limit carb consumption to 80- 100 grams per day. Goals: formal exercise 2-5 x/week as tolerated, start with 10 mins/day to goal of 30 minutes Have 3 meals a day-protein source with each meal (structured meal planning) Food journal daily and bring it to all appointments -- IN GENERAL - suggestions based on important of our sleep cycle called circadian rhythm and its influence on our gut microbiota and overall health tragetory 1) EAT MOST OF YOUR FOOD IN AM AND EARLY PM 2) NO EATING AT NIGHT 3) EXERCISE DURING DAY 4) BE CONSISTENT WITH MEAL STRUCTURE ie Meals at same time during the day. -- keep record of your food intake - it is easier for us to understand your eating habits and food preferences, looking into the amounts of protein, carbs, and fat in your diet. Good examples of apps to track calories are [employer], LOSE IT. Some patient have found FOODUCATE to help with decisions around food, however choose apps that best suits you. -- for exercise, you should shoot for a goal of >150 min per week initially. Depending at what level you are starting, that may seem like an unachievable task. However, the best plan is to just begin to walk or bike or do another activity that you like and track your steps per day. You do not need to pay attention to the time, but you do need to try to increase your exercise every 3 weeks. Other strength exercises, using light weights or training bands may also be useful, especially when combined with regular aerobic exercise. Studies have shown that >200min per week is best to maintain weight loss, so that would be the overall end goal. -- One option we discussed is to REPLACE one of your meals with a liquid meal or frozen meal. This is easy to start and may help with your weight. 1. Liquid meal replacement (Boost, Ensure) 2. Frozen meal (Healthy Choice, Lean Cuisine - sodium under 650mg, can always add veggies to the meal) 3. Powdered protein (Premier Protein) or meal replacement (I like a plant based meal replacement called [employer] - can mix w froz berries and almond milk) This note was partially generated using [employer]ync[employer] voice recognition system, and there may be some incorrect words, spellings, and punctuation that were not noted in checking the note before saving History Review: I have reviewed and modified as needed, the following during this visit: Allergies, Past Medical History, Past Surgical History, Past Family History, Past Social History. documented in this encounter [facility] 08-27-2022 History of Present illness Narrative Follow Up Visit Chief Complaint Germán Martinez is a 57 year old female who presents today for follow up office visit. Patient presents with: Left Knee - Follow Up, Established Patient, Knee Pain: 8 wk f/u History of Present Illness PAIN EVALUATION No data found in the last 1 encounters. HPI: Germán Martinez is a 57 year old female for a follow up visit right knee pain. Pain history is noted as above. Pain 2/10, worse going up stairs and climbing over baby evans, medial;/ant knee. Denies calf pain, numbness, tingling, fever, chills or other constitutional symptoms. Last injection right knee 03/18 Also asking about hand and is more concerned about hand today than knees. Is there any overall improvement in your condition? Yes, Any new injury, since being seen last: No REVIEW OF SYMPTOMS: Patient did not have, and does not currently have, any weight loss, malaise, fever, chills, headache, chest pain, chest pressure, palpitations, cough, shortness of breath, orthopnea, paroxsymal nocturnal dyspnea, nausea, vomiting, diarrhea, constipation, melena, hematochezia, urinary difficulties, prolonged bleeding, easily bruising, heat or cold intolerance, new onset joint pain or swelling, new onset extremity weakness or numbness, new onset auditory or visual disturbances, lightheadedness, dizziness, partial loss of consciousness or full loss of consciousness. Current Outpatient Medications Medication Sig metFORMIN ER (GLUCOPHAGE XR) 500 mg 24 hr tablet Take 2 tablets by mouth daily with breakfast. leflunomide (ARAVA) 20 mg tablet Take 1 tablet by mouth once daily. potassium chloride (K-TAB) 10 mEq tablet as needed. Only takes if takes hydrochlorothiazide Cholecalciferol, Vitamin D3, 25 mcg (1,000 unit) cap Take 1,000 Units by mouth once daily. amLODIPine (NORVASC) 10 mg tablet Take 10 mg by mouth once daily. simvastatin (ZOCOR) 10 mg tablet Take 10 mg by mouth daily at bedtime. cyclobenzaprine (FLEXERIL) 10 mg tablet Take 5 mg by mouth at bedtime as needed. hydroCHLOROthiazide 12.5 mg capsule Take 12.5 mg by mouth once daily. lisinopril (ZESTRIL, PRINIVIL) 20 mg tablet Take 1 tablet by mouth once daily. levothyroxine (SYNTHROID) 75 mcg tablet Take 75 mcg by mouth once daily. semaglutide (OZEMPIC) 0.25 mg or 0.5 mg(2 mg/1.5 mL) pen Inject 0.25 mg subcutaneously one time a week. No current facility-administered medications for this visit. Physical Exam Vitals: There were no vitals taken for this visit. Psych: Pleasant, good affect and mood General Appearance: Well appearing, alert, in no acute distress, well-hydrated, well nourished.. Skin: Skin color, texture, turgor normal, no suspicious rashes or lesions. Peripheral Pulses: Normal. Neurologic: Gait normal. Reflexes normal and symmetric. Sensation grossly intact.. Lymph Nodes: No cervical lymphadenopathy, No supraclavicular lymphadenopathy, No axillary lymphadenopathy., and No inguinal lymphadenopathy.. Respiratory: No recent pulmonary infection, hemoptysis, chronic cough, or shortness of breath at rest Rheumatologic: Joint deformities: Right knee pain, left better Right Knee Exam Muscle Strength The patient has normal right knee strength. Tenderness The patient is experiencing tenderness in the medial joint line. Range of Motion Extension: normal Flexion: normal Tests Misha: Anterior - negative Posterior - negative Drawer: Anterior - negative Posterior - negative Other Erythema: absent Sensation: normal Pulse: present Swelling: none Comments: Crepitus bilaterally Left Knee Exam Muscle Strength The patient has normal left knee strength. Tenderness The patient is experiencing tenderness in the medial joint line. Range of Motion Extension: normal Flexion: normal Tests Misha: Anterior - negative Posterior - negative Drawer: Anterior - negative Posterior - negative Other Erythema: absent Sensation: normal Pulse: present Swelling: none Comments: Neg homans bilaterally Right Hand Exam Right hand exam is normal. Tenderness The patient is experiencing no tenderness (2/3 mcp dorsal/ synovial swelling). Range of Motion The patient has normal right wrist ROM. Wrist Extension: normal Flexion: normal Pronation: normal Supination: normal Muscle Strength The patient has normal right wrist strength. Tests Phalen s Sign: negative Tinel's sign (median nerve): negative Selena's test: negative Other Erythema: absent Sensation: normal Pulse: present Comments: B/l med/uln/rad/ax nerves intact Left Hand Exam Left hand exam is normal. Tenderness The patient is experiencing no tenderness. Range of Motion The patient has normal left wrist ROM. Wrist Extension: normal Flexion: normal Pronation: normal Supination: normal Muscle Strength The patient has normal left wrist strength. Tests Phalen s Sign: negative Tinel's sign (median nerve): negative Selena's test: negative Other Erythema: absent Sensation: normal Pulse: present Assessment and Plan Radiographs: No imaging to review. Impression: Encounter Diagnosis ICD-10-CM 1. Rheumatoid arthritis involving multiple sites, unspecified whether rheumatoid factor present ([facility]) M06.9 2. Arthritis of knee M17.10 3. 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 We discussed strategies for decreasing pain and improving strength, stability and motion. Patient's questions were answered in detailed. Patient verbalizes understanding and agrees with the treatment plan as discussed. Discussed injection in mcp joint, dr king carrasco pending as patient did not want to travel all the way up there for her injection. She has seen Dr. Wong in the past for her hand and elected proceed with seeing him to see if he would do the MCP injection in the office instead. Will see if dr wong will do mcp injection/d/w staff and will put patient on his schedule and if he does not do them in office will remove from his schedule an dpatient will have travel Patient aware and in agreement of plan. All questions answered. Stopped topamax bc of cataracts Kym Conrad DO Patient presents with: Left Knee - Follow Up, Established Patient, Knee Pain: 8 wk f/u documented in this encounter [facility] 07-08-2022 Miscellaneous Notes Patient sent a [employer] message requesting the following refill. Requested Prescriptions Pending Prescriptions Disp Refills metFORMIN ER (GLUCOPHAGE XR) 500 mg 24 hr tablet 180 tablet 0 Sig: Take 2 tablets by mouth daily with breakfast. topiramate (TOPAMAX) 50 mg tablet 180 tablet 0 Sig: Take 1 tablet by mouth twice daily. Next Appointment: 08/27/2022 Patient Phone numbers: [phone] (home) Request is for script(s) to be escript to pharmacy. Matthew Gambino MA documented in this encounter [facility] 07-02-2022 History of Present illness Narrative Images from the original note were not included. Follow Up Visit Chief Complaint Germán Martinez is a 57 year old female who presents today for follow up office visit. Patient presents with: Left Knee - Established Patient, Pain Right Knee - Established Patient, Pain History of Present Illness PAIN EVALUATION 07/02/2022 0944 Pain Level: 0 Pain Location: -- bilateral knees Description: Aching Duration Amount of Time: -- ongoing Frequency: Intermittent Intervention/Comfort measure: Exercise HPI: Germná Martinez is a 57 year old female for a follow up visit bilateral knee pain. Pain history is noted as above. No pain today, happy with herself. Denies calf pain, numbness, tingling, fever, chills or other constitutional symptoms. Is there any overall improvement in your condition? Yes, Any new injury, since being seen last: No REVIEW OF SYMPTOMS: Patient did not have, and does not currently have, any weight loss, malaise, fever, chills, headache, chest pain, chest pressure, palpitations, cough, shortness of breath, orthopnea, paroxsymal nocturnal dyspnea, nausea, vomiting, diarrhea, constipation, melena, hematochezia, urinary difficulties, prolonged bleeding, easily bruising, heat or cold intolerance, new onset joint pain or swelling, new onset extremity weakness or numbness, new onset auditory or visual disturbances, lightheadedness, dizziness, partial loss of consciousness or full loss of consciousness. Current Outpatient Medications Medication Sig leflunomide (ARAVA) 20 mg tablet Take 1 tablet by mouth once daily. metFORMIN ER (GLUCOPHAGE XR) 500 mg 24 hr tablet Take 2 tablets by mouth daily with breakfast. Cholecalciferol, Vitamin D3, 25 mcg (1,000 unit) cap Take 1,000 Units by mouth once daily. amLODIPine (NORVASC) 10 mg tablet Take 10 mg by mouth once daily. simvastatin (ZOCOR) 10 mg tablet Take 10 mg by mouth daily at bedtime. cyclobenzaprine (FLEXERIL) 10 mg tablet Take 5 mg by mouth at bedtime as needed. hydroCHLOROthiazide 12.5 mg capsule Take 12.5 mg by mouth once daily. lisinopril (ZESTRIL, PRINIVIL) 20 mg tablet Take 1 tablet by mouth once daily. levothyroxine (SYNTHROID) 75 mcg tablet Take 75 mcg by mouth once daily. potassium chloride (K-TAB) 10 mEq tablet TAKE 1 TABLET BY MOUTH DAILY WHEN TAKING FUROSEMIDE (Patient not taking: Reported on 07/02/2022) topiramate (TOPAMAX) 50 mg tablet Take 1 tablet by mouth twice daily. (Patient taking differently: Take 50 mg by mouth twice daily. Patient states she is taking 25 mg in the AM and 50 MG in the PM) meloxicam (MOBIC) 7.5 mg tablet Take 7.5 mg by mouth once daily. No current facility-administered medications for this visit. Physical Exam Vitals: There were no vitals taken for this visit. Psych: Pleasant, good affect and mood General Appearance: Well appearing, alert, in no acute distress, well-hydrated, well nourished.. Skin: Skin color, texture, turgor normal, no suspicious rashes or lesions. Peripheral Pulses: Normal. Neurologic: Gait normal. Reflexes normal and symmetric. Sensation grossly intact.. Lymph Nodes: No cervical lymphadenopathy, No supraclavicular lymphadenopathy, No axillary lymphadenopathy., and No inguinal lymphadenopathy.. Respiratory: No recent pulmonary infection, hemoptysis, chronic cough, or shortness of breath at rest Rheumatologic: Joint deformities: doing well. Less knee pain today Right Knee Exam Right knee exam is normal. Muscle Strength The patient has normal right knee strength. Tenderness The patient is experiencing no tenderness. Range of Motion Extension: normal Flexion: normal Tests Misha: Anterior - negative Posterior - negative Drawer: Anterior - negative Posterior - negative Other Erythema: absent Sensation: normal Pulse: present Swelling: none Left Knee Exam Left knee exam is normal. Muscle Strength The patient has normal left knee strength. Tenderness The patient is experiencing no tenderness. Range of Motion Extension: normal Flexion: normal Tests Misha: Anterior - negative Posterior - negative Drawer: Anterior - negative Posterior - negative Other Erythema: absent Sensation: normal Pulse: present Swelling: none Comments: Neg homans bilaterally Assessment and Plan Radiographs: I have independently reviewed films and my findings are the same. Last XR Knee - Impression Only XR KNEE GENERAL 4V AP BOTH/PA BOTH/LAT/MERC LEFT Exam End: 05/11/2022 12:49 PM (Final result) Impression: IMPRESSION: Degenerative changes as detailed in report. 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 Impression: Encounter Diagnosis ICD-10-CM 1. Chronic pain of left knee M25.562 G89.29 2. Arthritis of knee M17.10 3. Chronic pain of right knee M25.561 G89.29 Today, in detail, through a thorough evaluation, we discussed possible etiologies of pain and our plans for further diagnostic and therapeutic interventions. We discussed strategies for decreasing pain and improving strength, stability and motion. Patient's questions were answered in detailed. Patient verbalizes understanding and agrees with the treatment plan as discussed. Doing well, no acute issues today Defer steroid injection until symptomatic Continue weight loss regimen Stay active Patient aware and in agreement of plan. All questions answered. Kym Conrad DO AMB ROOMING INTAKE FLOWSHEET DATA Risk Screening Do you have concerns about personal safety or safety in the home?: No Pain Pain Level: 0 Pain Location: (bilateral knees) Description: Aching Duration Amount of Time: (ongoing) Frequency: Intermittent Intervention/Comfort measure: Exercise Patient here today for 5 weeks 1 day post visit left knee with injection given and 15 weeks 1 day post visit right knee pain with injection given. Patient reports no pain in the left knee at all. documented in this encounter [facility] 06-10-2022 Miscellaneous Notes Called to schedule for 10 Wk F/U (around 08/19), no answer, LVM. documented in this encounter [facility] 06-10-2022 Instructions Velma Shook APRN.LINOLEUM TILE LAYER - 06/10/2022 12:51 PM EDT Dear Rupal Juan: It was a pleasure to care for you today: Here are today's highlights: Continue your current medications Topiramate 25 mg twice a day Metformin 1000 mg xr daily Continue with low carb, low sugar foods; And Continue with increasing your activity; Topiramate (toe pyre a mate) - Please start topiramate as discussed. Take one tablet (25mg) every night and increase to 2 tablets at night (50MG) after 2 weeks if there is no change in your appetite, cravings or weight. -- You can take it at night at first (because of potential sleepiness side effects), but earlier around dinner after you have started the medication for a few days. You also may be able to take it in the morning if easier. -- We may increase the dose to 3 tablets (75mg) a few weeks later if there is no change with 50mg and continue to increase the medication in this way (usually no more than 150mg). But it is best to contact me after 1 month to discuss continued increases of the medication. -- Please see the handout to review the potential side effects and to explain this further -Also discussed that when on topiramate , I would recommend using 2 different kind if control methods, Due to several anomaly( if female in reproductive age group) --no while on this medications --pt Agrees and verbalizes understanding. What are the common names? Topamax Why is this medication prescribed? Topiramate is an anti-epileptic medications which has been approved by the FDA for patients 10 years of age or older for treatment of seizures. However, topiramate also has other uses such as the treatment of migraines. It also causes decrease in appetite and weight loss. The mechanism of weight loss is thought to be through inhibition of mitochondrial enzymes involved in energy expenditure and metabolism. Topiramate may work by helping you feel less hungry, less driven to eat, more satisfied with less food. However while phentermine and topiramate in combination are approved by FDA for long-term treatment of obesity, topiramate as stand alone pharmacotherapy has not been approved for this purpose. Has been used in treatment of obesity as an off label, as discussed during your visit. What special precautions should I follow? --Recommended appropriate and consistent control method in women to prevent conception while taking topiramate.(recommended at least 2 methods of contraception as at times it can decrease the effectiveness of oral control pills) --(women in child bearing age ) I strongly recommend discontinue the use of medication prior to conception as the medication may be linked to anomalies and not safe to utilize during . Before having topiramate prescribed, tell your doctor and pharmacist: If you have allergies to any component of topiramate If you are , plan to become , are breast-feeding, or if you become while taking topiramate What are the warnings and precautions for this medication? Immediately discontinue the medicine and seek medical help if you have severe cognitive/neuropsychiatric adverse symptoms or eye symptoms. Cognitive/neuropsychiatric adverse events: symptoms may include confusion, psychomotor slowing, difficulty with concentration/attention, difficulty with memory, speech or language problems, particularily word-finding difficulties, somnolence or fatigue Acute myopia and secondary angle closure glaucoma, usually within 1 month of starting treatment: symptoms may include blurred vision, redness and/or pain in the eye Oligohydrosis (decrease sweating) and hyperthermia (elevation in body temperature) Increase in suicidal behavior or ideation Metabolic acidosis, non-gap hyperchloremic (decreased serum bicarbonate below normal levels) resulting in hyperventilation or fatigue Kidney stones Paresthesias (numbness or tingling in hands or feet) Ataxia Dizziness Increase in urination frequency Drug interactions. Use of monamine oxidase inhibitors (MAOI s), valproic acid, Caution use with dehydration or diarrheal illness, hepatic or renal impairment In case of emergency/overdose In case of overdose, call your local poison control center at or call local emergency services at 237. What other information should I know? Keep all appointments with your doctor and the laboratory. Do not let anyone else take your medication. Topiramate use needs to be monitored closely. Prescriptions may be refilled only a limited number of times. Keep a written list of all of your prescription and nonprescription ([id number]) medicines, in addition to vitamins, minerals, or other dietary supplements. How should I monitor while on this medication? Your doctor will check your baseline kidney function and electrolytes prior to starting this medication, then periodically. Continue to improve your dietary and physical activity habits as the combination works best while on this medication. Start out by taking the medication at bedtime as it can cause fatigue and sleepiness. Be sure to eat regular meals. Less hunger does not make it appropriate to skip meals. Make sure to have an eye exam, including the pressure in your eyes (intra-ocular pressure), once a year. What should I do if I forget a dose? Skip the missed dose and continue your regular dosing schedule the next day. Do not take a double dose to make up for a missed one. Sources Pubmed Health: http://www.ncbi.nlm.nih.gov/pubmed health/EUL3558956/ Drugs.com http://www.drugs.com/pro/topiramat e.html documented in this encounter [facility] 06-10-2022 History of Present illness Narrative Images from the original note were not included. Obesity Medicine Followup Note This Team Access Model visit is a virtual visit due to COVID -19 Pandemic . It required patient-provider interaction for the medical decision making as documented below. Consent was obtained to complete today's [facility] visit. 06/10/2022 Patient Summary: is 57 year old Female who presents for follow-up evaluation of her obesity and related complications to the [facility] Bariatric and Metabolic [place]. In our previous visits we have outlined an individualized lifestyle intervention including a personalized nutrition recommendations and physical activity optimization. Germán Martinez is here today for follow up evaluation for non surgical metabolic weight loss management. her last office visit was 1 month(s) ago with Dr. Abernathy. Weight loss since last visit: Today's weight:214 lbs Last weight: 220 BMI: 36.73 Interval history: Patient here for medication review due to some intolerance; Reports staying nutrition and healthy lifestyle. Obesity Medications: Current obesity Medications: Topiramate 50 mg twice daily (patient reports: taking 25 mg of topiramate twice daily once in am and once in pm, second to intolerance, at higher dose hands and feet tingling, head tingling and scalp) Metformin 1000 mg xr daily (patient takes 2 of the 500 mg xr tablets daily) -- reports good suppression of appetite and good increase in satiety -- reports with topiramate intolerance at higher dose hands and feet tingling, head tingling and scalp) -- reports no side effects with the metformin. Exercise Freq-reports walking daily at least 1 mile and has physical therapy for sciatica; and recent beginning workout with weights . Barriers- busy schedule Work-related activity: Sedentary Diet Healthy food choices- continues with 3 hours between meals and avoids eating after 730 pm. Reports fruits and veges; Reports no snacking or eating after 7pm Reports water 60 ounces. Structure- structured meals ?Sleep Duration (<6hr)-6-8 hours Quality-fair Stress Degree- moderate to high Cause- grandchildren issues PAST MEDICAL HISTORY Diagnosis Date Cervical stenosis of spine states receives injections every 4 months Rheumatoid arthritis (HCC) Unspecified hypothyroidism FUNCTIONAL STATUS: Walk indoors, such as around the house (1.75 METs) Do light work around the house, such as dusting or washing dishes (2.70 METs) Take care of self, that is eating, dressing, bathing, using the toilet (2.75 METs) Walk a block or two on level ground (2.75 METs) Do moderate work around the house such as vacuuming, sweeping floors, or carrying in groceries (3.50 METs) Review of Systems: Review of Systems Constitutional: Negative. HENT: Negative. Eyes: Negative. Reports no hx of glaucoma Respiratory: Negative. Cardiovascular: Negative. Gastrointestinal: Reports no hx of pancreatitis; no hx of cholecystitis or cholecystectomy; Endocrine: Hx of thyroid goiter with nodules; received radioactive Iodine; Genitourinary: Reports no hx of renal stones Musculoskeletal: Positive for back pain and myalgias. Skin: Negative. Allergic/Immunologic: Negative. Neurological: Negative. Hematological: Negative. Psychiatric/Behavioral: Negative. PAST SURGICAL HISTORY Procedure Laterality Date ARTHRP INTERPOS INTERCARPAL/METACARPAL JOINTS Left 06/18/2021 Left thumb CMC arthroplasy with LRTI and percutaneous pinning left thumb MCPJ CONIZATION CERVIX W/WO D&C RPR ELTRD EXC 09/20/1997 LEEP-Cervix SLING OPER STRES INCONTINENCE 09/20/2001 TONSILLECTOMY PRIMARY/SECONDARY <AGE 12 09/20/1969 Tonsillectomy Social History Tobacco Use Smoking status: Former Packs/day: 0.25 Years: 25.00 Pack years: 6.25 Types: Cigarettes Smokeless tobacco: Never Tobacco comments: 2-3 packs a week Vaping Use Vaping Use: Never used Substance Use Topics Alcohol use: Yes Comment: very rare Drug use: No PE Ht 162.6 cm (5' 4 ) Wt 97.1 kg (214 lb) LMP (LMP Unknown) BMI 36.73 kg/m Physical Exam Vitals (patient reports blood pressure coming down with weight loss) reviewed. HENT: Mouth/Throat: Mouth: Mucous membranes are moist. Pharynx: Oropharynx is clear. Neurological: Mental Status: She is oriented to person, place, and time. Psychiatric: Mood and Affect: Mood normal. Behavior: Behavior normal. Thought Content: Thought content normal. Judgment: Judgment normal. Results Appointment on 05/19/2022 Component Date Value Ref Range Status WBC 05/19/2022 10.56 3.70 - 11.00 k/uL Final RBC 05/19/2022 4.09 3.90 - 5.20 m/uL Final Hemoglobin 05/19/2022 12.4 11.5 - 15.5 g/dL Final Hematocrit 05/19/2022 37.3 36.0 - 46.0 % Final MCV 05/19/2022 91.2 80.0 - 100.0 fL Final MCH 05/19/2022 30.3 26.0 - 34.0 pg Final MCHC 05/19/2022 33.2 30.5 - 36.0 g/dL Final RDW-CV 05/19/2022 13.7 11.5 - 15.0 % Final Platelet Count 05/19/2022 277 150 - 400 k/uL Final MPV 05/19/2022 10.0 9.0 - 12.7 fL Final Neut% 05/19/2022 73.6 % Final Abs Neut 05/19/2022 7.78 (A) 1.45 - 7.50 k/uL Final Lymph% 05/19/2022 17.2 % Final Abs Lymph 05/19/2022 1.82 1.00 - 4.00 k/uL Final Appling% 05/19/2022 6.3 % Final Abs Appling 05/19/2022 0.66 <0.87 k/uL Final Eosin% 05/19/2022 1.8 % Final Abs Eosin 05/19/2022 0.19 <0.46 k/uL Final Baso% 05/19/2022 0.8 % Final Abs Baso 05/19/2022 0.08 <0.11 k/uL Final Immature Gran % 05/19/2022 0.3 % Final Abs Immature Gran 05/19/2022 0.03 <0.10 k/uL Final NRBC 05/19/2022 0.0 /100 WBC Final Absolute nRBC 05/19/2022 <0.01 <0.01 k/uL Final Diff Type 05/19/2022 Auto Final Protein, Total 05/19/2022 6.6 6.3 - 8.0 g/dL Final Albumin 05/19/2022 4.1 3.9 - 4.9 g/dL Final Calcium, Total 05/19/2022 9.4 8.5 - 10.2 mg/dL Final Bilirubin, Total 05/19/2022 0.3 0.2 - 1.3 mg/dL Final Alkaline Phosphatase 05/19/2022 92 34 - 123 U/L Final AST 05/19/2022 18 13 - 35 U/L Final ALT 05/19/2022 17 7 - 38 U/L Final Glucose 05/19/2022 85 74 - 99 mg/dL Final BUN 05/19/2022 19 7 - 21 mg/dL Final Creatinine 05/19/2022 1.27 (A) 0.58 - 0.96 mg/dL Final Sodium 05/19/2022 139 136 - 144 mmol/L Final Potassium 05/19/2022 3.7 3.7 - 5.1 mmol/L Final Chloride 05/19/2022 107 (A) 97 - 105 mmol/L Final CO2 05/19/2022 19 (A) 22 - 30 mmol/L Final Anion Gap 05/19/2022 13 9 - 18 mmol/L Final Estimated Glomerular Filtration Ra* 05/19/2022 49 (A) >=60 mL/min/1.73m Final Impression: 57 year old female with a class 3 obesity here for non surgical metabolic weight loss management. Body mass index is 36.73 kg/m . Assessment/Plan: ASSESSMENT/PLAN: 1. Class 3 severe obesity due to excess calories in adult, unspecified BMI, unspecified whether serious comorbidity present (HCC) - ICD9: 278.01, ICD10: E66.01 (primary diagnosis) Weight decreasing - Behavioral and pharmacological intervention Discussed with patient to continue low carbohydrate low sugar nutrition. Discussed with patient to also continue managing maladaptive eating behaviors. Patient continues with solid nutritional habits and not eating after 7:30 PM. Discussed with patient to continue to increase her cardio and to add weights. Discussed with patient to continue with at least 60 g of protein daily and 60 ounces of water to stay well-hydrated especially while on topiramate. . I have also reviewed the possibility using weight loss medications in effort to reduce patient's appetite. I reviewed the different therapeutic options available including phentermine, Qsymia, Contrave, Saxenda, topiramate, metformin, bupropion and Effexor which all been associated weight loss. At this time we agreed that the patient's best option at this point to be: Decrease topiramate to 25 mg twice a day secondary to intolerance at higher dosing. Continue metformin 1000 mg XR daily I have reviewed with patient pros and cons of taking these medications as well as side effects. Patient has verbalized understanding of medications and education. 2. Dietary counseling and surveillance - ICD9: V65.3, ICD10: Z71.3 Reviewed principles of energy metabolism caloric intake and expenditure and rationale for treatment program. Also reinforced need for reduced calorie low-fat nutrition and increase physical activity. 3. BMI 36.0-36.9,adult - ICD9: V85.36, ICD10: Z68.36 Decreasing Continue behavioral and pharmacological intervention 4. Primary hypertension - ICD9: 401.9, ICD10: I10 - good control - Continue current medication(s) - Recommended regular aerobic exercise. - Recommend home blood pressure monitoring, to bring results in on next visit - Goal of BP <130/80 - Recommend home or pharmacy blood pressure monitoring - Recommended no refined sugar, low refined starch, healthy oil intake (olive oil), healthy protein (fish) along the lines of the Mediterranean diet. 5. Obstructive sleep apnea syndrome - ICD9: 327.23, ICD10: G47.33 Counseled on using her cpap on a regular basis 6. Acquired hypothyroidism - ICD9: 244.9, ICD10: E03.9 - Instructed patient on importance of taking on an empty stomach either first thing in the morning or at bedtime. Weight decreasing - Behavioral and pharmacological intervention Velma Shook APRN.LAYLA Patient is doing well otherwise, continues lifestyle modification. Patient remains motivated to lose weight. This note was partially generated using [employer] voice recognition system, and there may be some incorrect words, spellings, and punctuation that were not noted in checking the note before saving. -- We discussed several strategies to track food intake and increase mindfulness around eating. We will start with a self-directed attempt in combination with the above recommendations. -- Encouraged consistency of exercise, with an overall goal of 200 minutes per week. This dose of exercise has been effective in weight loss and maintenance. We discussed that cardiovascular exercise is most beneficial for weight loss initially, but it is important to combine resistance training as there is a loss of lean muscle mass with weight loss. Velma Shook APRN [facility] Obesity Medicine I spent a total of 25 minutes on the date of the service which included preparing to see the patient, [id number] patient care, completing clinical documentation, obtaining and/or reviewing separately obtained history, performing a medically appropriate examination, counseling and educating the patient/family/caregiver, ordering medications, tests, or procedures, communicating with other HCPs (not separately reported), independently interpreting results (not separately reported), communicating results to the patient/family/caregiver, and care coordination (not separately reported) 5A's- Assess: I assessed behavioral health risk/factors affecting --- Asked about/assess behavioral health risk(s) and factors affecting choice of behavior change goals --- somewhat sedentry lifestyle ---?snacking ---Lack of exercise Advise: clear, specific, personalized behavior change advice. ---I gave very clear, specific, and personalized behavior change adviced, including information about personal health harms and benefits. Agree: Patient agrees with selected appropriate treatment goals and methods to change behavior Assist: Provided IBT w self-help, handouts, teaching skills and support Using behavior change techniques with self-help and Counseling in achieving Goals. Also discussed supplementing with adjunctive medical treatments when appropriate. Arrange: follow up scheduled, handouts given to patient. documented in this encounter [facility] 06-08-2022 Miscellaneous Notes Patient called and scheduled Matthew Gambino MA June 08, 2022 documented in this encounter [facility] 06-03-2022 Miscellaneous Notes Sirisha Preciado Sent me an [employer] chat about patient leaving a voice message but wasn't sure what she needed. I called both numbers listed for the patient, no answer, left voice message on both lines for patient to call back Matthew Gambino MA June 03, 2022 documented in this encounter [facility] 05-20-2022 Miscellaneous Notes I called and left a voice message for patient to call back and schedule an appointment. Sent [employer] message as well Matthew Gambino MA May 20, 2022 Please have her see Velma FALK documented in this encounter [facility] 05-19-2022 Miscellaneous Notes Labs final on chart today. documented in this encounter [facility] 05-18-2022 History of Present illness Narrative Images from the original note were not included. [facility] General Arthritis and Rheumatology Madie Main [address] [place] [address] RHEUMATOLOGY PROGRESS NOTE Patient is here for a follow up visit for Patient presents with: Joint Pain HPI: Germán Martinez is a 56 year old female who presents RA Arava No joint swelling today. AM stiffness lasting 30 min. Left knee pain 03/29. Wearing a brace. Woke her from sleep this AM. Thinking worsened during pool exercises 04/29. Popping. Feels bone on bone. Seeing ortho 05/27 Has been using Mobic and Tramadol without relief. Right knee OA- gets inj with relief. See's ortho for right MCP injections Thumb surgery [facility] 1 left- doing well, in OT, some residual numbness, working on this No red eyes, doing well. Had covid booster- did well Brief Rheumatological history - She was diagnosed with RA in 2012. Had symptoms of foot pain several years prior to that. She was seen by Dr. Amador Sterling did not help. Plaquenil caused rash. She also tried several other medications which did not help. cannot remember the names She was unable to follow up due to insurance conflicts. She took turmeric. Never been on infusions. Not been on RA meds since 3 years. After covid shot she noticed more pain in joints, redness in eyes and redness in legs. Hand swelling. She was diagnosed with Episcleritis, treated with steroids. That helped with hand swelling and she was able to make a fist. Patient with chronic hives. Notes from previous chills. Patient has been on Treximet 12.5 mg once a week, folic acid 2 mg, Xeljanz, tramadol 50 mg 3 times a day as needed. She underwent fusion of right midfoot. Had MRI of right shoulder. She follows up with Dr. WHELAN. Pain management doctor [facility] stopped hydroxychloroquine due to rash Tylenol and ibuprofen did not negative rheumatoid for the liver showing fatty liver. Coexisting fibromyalgia. Vectra score in 1999 1555 showing high disease activity. She had syncope and fell Right ankle injury, surgery 5 years ago Family history of autoimmune disease: grandmother with RA, colitis Smoking status: Tobacco Use: .25 packs/day, for 25 years. Types: Cigarettes (2-3 packs a week) PAST MEDICAL HISTORY Diagnosis Date Cervical stenosis of spine states receives injections every 4 months Rheumatoid arthritis (HCC) Unspecified hypothyroidism PAST SURGICAL HISTORY Procedure Laterality Date ARTHRP INTERPOS INTERCARPAL/METACARPAL JOINTS Left 06/18/2021 Left thumb CMC arthroplasy with LRTI and percutaneous pinning left thumb MCPJ CONIZATION CERVIX W/WO D&C RPR ELTRD EXC 09/20/1997 LEEP-Cervix SLING OPER STRES INCONTINENCE 09/20/2001 TONSILLECTOMY PRIMARY/SECONDARY <AGE 12 09/20/1969 Tonsillectomy History Review: I have reviewed and modified as needed, the following during this visit: Allergies, Past Medical History, Past Surgical History, Past Family History, Past Social History. Interval Review of Systems CONSTITUTIONAL: Recent Weight change: No Fever: No EYES: Dryness in nose: No Dryness of mouth: No Oral ulcers: No CARDIOVASCULAR: Pain in chest: No RESPIRATORY: Shortness of breath: No Cough: No GASTROINTESTINAL: Nausea: No Vomiting: No Changes in bowel movements: No Jaundice: No Heartburn: No MUSCULOSKELETAL: Per HPI INTEGUMENTARY: Rash: No HEMATOLOGIC/LYMPHATIC: Anemia: No NEUROLOGICAL SYSTEM: Headaches: No Sensitivity or pain of hands and/or feet: No PSYCHIATRIC: Anxiety: No Poor sleep: No BP 142/80 Pulse 84 Temp 36.8 C (98.2 F) (Temporal) Resp 12 Ht 162.6 cm (5' 4 ) Wt 99.8 kg (220 lb) LMP (LMP Unknown) BMI 37.76 kg/m Physical Exam GENERAL: Well appearing, alert, comfortable, in no acute distress, well-hydrated, well nourished. HEENT: Negative for external ears normal. Canals are clear. Both TMs visualized and are normal. Eye Exam normal. External nose normal, no nasal ulcer or throat ulcer. NECK: NECK Supple, no adenopathy; thyroid symmetric, normal size, no bruits CARDIAC: regular rate and rhythm, No murmur asculated., and Equal peripheral pulses RESPIRATORY: Lungs clear to auscultation. No wheezing, rhonchi, rales VASCULAR: RRR without murmur, gallop, or rubs. No ectopy. NEURO: Motor and sensory exam normal MOTOR: Normal; including tone, gait, stressed gait, power and coordination. SKIN: Negative for alopecia, skin rash, malar rash, skin lesion, skin ulcer, pits, thickening, color changes, telangiectasias, nail changes, nail ridging, nail pitting, onycholysis MUSCULOSKELETAL: Bl knee crepitus Wearing a brace on left knee Lab Results: 01/2022 Cr 1.16 Serology: ESR, CRP TB, Hep normal Radiology: IMPRESSION: Findings are suggestive of degenerative changes of the right knee with small joint effusion. 2020 - normal BMD Assessment and Plan (M06.9) Rheumatoid arthritis involving multiple sites, unspecified whether rheumatoid factor present (HCC) (primary encounter diagnosis) (Z79.899) High risk medication use (M17.0) Primary osteoarthritis of both knees 57-year-old female with prior diagnosis of seronegative rheumatoid arthritis, fibromyalgia, osteoarthritis is here to establish care. Patient was on multiple immunosuppressive medication and reports lack of benefit. She also has pain due to osteoarthritis and had several surgeries in the past. Recent episode started in bilateral hands along with swelling concerning for synovitis, improvement with prednisone, episcleritis treated with steroids, rash in lower extremities after Covid vaccination. She has not been on immunosuppression for last 3 years. Her presentation is concerning for rheumatoid arthritis. Also discussed about different etiologies of pain in her including osteoarthritis and fibromyalgia which does not respond to immunosuppression. May consider combination treatment going forward. Short course of steroids. She reports h/o insulin resistance. Trying to lose weight. Seeing obesity medicine, on medication to help. Pain currently due to OA. Gets injections right MCP 3 and right knee. Recent XR shows OA left knee, seeing ortho soon, may need inj as well RA seems stable. Labs every 3 months. Continue Arava. Office Visit on 05/18/22 CBC + DIFF COMP METABOLIC PANEL Medication orders placed this encounter leflunomide (ARAVA) 20 mg tablet Sig: Take 1 tablet by mouth once daily. Dispense: 30 tablet Refill: 2 Return in about 3 months (around 08/18/2022) for RA, Dr. Fish, keep f/u appointment, no additional. Madie Main PA-C documented in this encounter [facility] 05-11-2022 Miscellaneous Notes Addended by: STEVEN ABDI on: 05/11/2022 02:15 PM Modules accepted: Orders documented in this encounter [facility] 05-11-2022 History of Present illness Narrative Patient presents with: Knee Pain: Left knee pain x 3 weeks HPI: Left knee pain: Duration: 3 weeks. Location: medial left knee Character: aching. Reminds her of torn meniscus in the right knee Radiation: up the medial thigh and medial lower leg Aggravating: bothers her more when sitting or lying down in the evening, stairs while hiking at [place]. No pain with standing Relieving: walking, biofreeze Pain relievers: ice, meloxicam (a little help), tramadol (no help) Associated: feels tight inside, popping, PHx of sciatica (in PT), does an hour of pool exercises daily at home Pertinent negatives: Denies locking, giving out, fever, known injury PAST MEDICAL HISTORY Diagnosis Date Cervical stenosis of spine states receives injections every 4 months Rheumatoid arthritis (HCC) Unspecified hypothyroidism MEDICATIONS: potassium chloride (K-TAB) 10 mEq tablet TAKE 1 TABLET BY MOUTH DAILY WHEN TAKING FUROSEMIDE metFORMIN ER (GLUCOPHAGE XR) 500 mg 24 hr tablet Take 2 tablets by mouth daily with breakfast. topiramate (TOPAMAX) 50 mg tablet Take 1 tablet by mouth twice daily. leflunomide (ARAVA) 20 mg tablet Take 1 tablet by mouth once daily. Cholecalciferol, Vitamin D3, 25 mcg (1,000 unit) cap Take 1,000 Units by mouth once daily. amLODIPine (NORVASC) 10 mg tablet Take 10 mg by mouth once daily. simvastatin (ZOCOR) 10 mg tablet Take 10 mg by mouth daily at bedtime. meloxicam (MOBIC) 7.5 mg tablet Take 7.5 mg by mouth once daily. cyclobenzaprine (FLEXERIL) 10 mg tablet Take 5 mg by mouth at bedtime as needed. hydroCHLOROthiazide 12.5 mg capsule Take 12.5 mg by mouth once daily. lisinopril (ZESTRIL, PRINIVIL) 20 mg tablet Take 1 tablet by mouth once daily. levothyroxine (SYNTHROID) 75 mcg tablet Take 75 mcg by mouth once daily. ALLERGIES: ALLERGIES Allergen Reactions Codeine Vomiting Duloxetine Other: See Comments Hydroxychloroquine Rash Tapazole [[place]* Rash Vicodin [Hydrocodon* Itching VITALS: BP 132/74 Pulse 82 Temp 36.6 C (97.8 F) Resp 21 Wt 100.9 kg (222 lb 6.4 oz) LMP (LMP Unknown) SpO2 99% BMI 38.17 kg/m PHYSICAL EXAM: GEN: pleasant, no acute distress, pacing in the room for comfort while waiting, alert NECK: supple, HEART: regular rate, regular rhythm, no murmurs LUNGS: clear to auscultation, no wheezes or crackles, no increased WOB BACK: right midline and paraspinal EXT: no clubbing, no cyanosis, no edema KNEE: left compared to right. No erythema, mild right effusion, no deformity. FROM without pain. R>L crepitus. Left medial joint line tenderness which extends to the medial below the tibial tuberosity. Stable to varus and valgus strain. Negative anterior drawer test. Negative posterior drawer test. Component Latest Ref Rng & Units 01/12/2022 Hemoglobin A1C 4.3 - 5.6 % 5.8 (H) ASSESSMENT/PLAN: 1. Acute pain of left knee - ICD9: 719.46, ICD10: M25.562 (primary diagnosis) 2. Pes anserine bursitis - ICD9: 726.61, ICD10: M70.50Xray ordered by Dr Conrad completed while here for her visit. No significant changes compared to July. Radiology interpretation is pending. Medial meniscus tear is not ruled out by xray, but exam is consistent with pes anserine bursitis. Treat with rest from knee flexion, ice after activity, anti-inflammatory. She may continue meloxicam. She can consider a 3 day prednisone burst (20mg daily) if OK with pain management (scheduled for cervical spine injection next week, called back and reports PM gave OK for steroid). Keep her follow up appointment as scheduled with ortho. Steven Abdi MD documented in this encounter [facility] 04-24-2022 History of Present illness Narrative Images from the original note were not included. Yen Abernathy MD [facility] [address] [facility], [address] [facility] - Fourth Floor [place] [address] Germán Martinez is a 57 year old female with PMH of DUNG, hypothyroidism, RA, hypertension, prediabetes* here today for a follow up on her weight loss efforts. She is currently taking the prescription weight loss medication Topiramate Concerns: Overall very happy with her journey has been doing well and consistent with her meals She is continuing with diet changes: yes -Main focus of dietary changes: Stop snacking and grazing She is continuing with exercise changes: yes -Exercise routine: Creased walking and has been doing some strength Goal weight:150 pound Review of weight loss medication side effects Any GI upset? no Changes to blood pressure? no Visual Changes: no -- Patient reports some suppression of her appetite and increase in satiety since starting the medication Diet: Has been very consistent with her meals. Spacing her meals denies any snacking or grazing. Sleep: good Stress: Coping better Smoking/Alcohol -denies Review of Systems Constitutional: Negative for malaise/fatigue. HENT: Negative for congestion and tinnitus. Eyes: Negative for blurred vision. Respiratory: Negative for shortness of breath. Cardiovascular: Negative for palpitations, orthopnea and leg swelling. Gastrointestinal: Negative for heartburn, nausea and vomiting. Genitourinary: Negative for dysuria and frequency. Musculoskeletal: Negative for back pain and joint pain. Neurological: Negative for weakness. Psychiatric/Behavioral: The patient does not have insomnia. VITALS: Wt 99.3 kg (219 lb) LMP (LMP Unknown) BMI 37.59 kg/m , Body mass index is 37.59 kg/m . Physical Exam Constitutional:. --no issues with communication HEENT: Normocephalic and atraumatic. Eyes: Conjunctiva appear normal. No scleral icterus. Hearing: Is grossly intact. Neck: Range of motion appears normal. Thyroid: appears symmetric and not enlarged. Pulmonary/Chest: Effort normal. Psychiatric: Mood, memory, affect and judgment normal. Neurological: alert and oriented to person, place, and time. Impression and Plan: ASSESSMENT/PLAN: 1. Class 3 severe obesity with serious comorbidity in adult, unspecified BMI, unspecified obesity type (HCC) - ICD9: 278.01, ICD10: E66.01 (primary diagnosis) Weight decreasing - Pharmacological intervention and - Behavioral and pharmacological intervention -- counseled in length ,recommended Low carb /low sugar diet --managing maladaptive eating behaviors and adding resistance exercise. Continue low carb diet, weights/cardio exercise and increase NEAT. Is been tolerating medications without any side effects Discussion increase topiramate to 50 mg twice daily.Discussed benefit and side effects in length patient agrees and verbalizes understanding. ReViewed her labs again - METFORMIN ER 500 MG TABLET,EXTENDED RELEASE 24 HR - TOPIRAMATE 50 MG TABLET 2. Mixed hyperlipidemia - ICD9: 272.2, ICD10: E78.2 - suboptimal control - Encouraged following a low fat, low cholesterol diet. - METFORMIN ER 500 MG TABLET,EXTENDED RELEASE 24 HR - TOPIRAMATE 50 MG TABLET 3. Dietary counseling and surveillance - ICD9: V65.3, ICD10: Z71.3 Reviewed principles of energy metabolism, caloric intake and expenditure, and rationale for treatment program. Also reinforced need for reduced calorie, low fat diet and increased physical activity. 4. Primary hypertension - ICD9: 401.9, ICD10: I10 - suboptimal control - Continue current medication(s) - Recommended regular aerobic exercise. - Recommend home blood pressure monitoring, to bring results in on next visit - Goal of BP <130/80 5. DUNG (obstructive sleep apnea) - ICD9: 327.23, ICD10: G47.33 Counseled on using her CPAP regularly. 6. Acquired hypothyroidism - ICD9: 244.9, ICD10: E03.9 - Instructed patient on importance of taking on an empty stomach either first thing in the morning or at bedtime. Weight decreasing - Behavioral and pharmacological intervention 7. Obstructive sleep apnea syndrome - ICD9: 327.23, ICD10: G47.33 Counseled on using her CPAP regularly. 8. Hypothyroidism, unspecified type - ICD9: 244.9, ICD10: E03.9 - Instructed patient on importance of taking on an empty stomach either first thing in the morning or at bedtime. Weight decreasing - Behavioral and pharmacological intervention 9. Prediabetes - ICD9: 790.29, ICD10: R73.03 -Has been tolerating metformin without any problems after discussion recommended to increase to 1 g - METFORMIN ER 500 MG TABLET,EXTENDED RELEASE 24 HR - TOPIRAMATE 50 MG TABLET 10. BMI 37.0-37.9, adult - ICD9: V85.37, ICD10: Z68.37 -- counseled in length ,recommended Low carb /low sugar diet --managing maladaptive eating behaviors and adding resistance exercise. Continue low carb diet, weights/cardio exercise and increase NEAT. Yen Abernathy MD She is responding well to the medication, losing over 25 pounds over the last 4 months.{ Her weight-related medical comorbidities are improving with weight loss. She is doing well otherwise, continues lifestyle modification. She remains motivated to lose weight. Reviewed principles of energy metabolism, caloric intake and expenditure, and rationale for treatment program. Also reinforced need for reduced calorie, low fat diet and increased physical activity. Yen Abernathy MD Some elements were copied from my last note, which have been updated where appropriate, and all reflect current medical decision making from TODAY History Review: I have reviewed and modified as needed, the following during this visit: Allergies, Past Medical History, Past Surgical History, Past Family History, Past Social History. I spent a total of 35 minutes on the date of the service which included preparing to see the patient, [id number] patient care, completing clinical documentation, obtaining and/or reviewing separately obtained history, performing a medically appropriate examination, counseling and educating the patient/family/caregiver, ordering medications, tests, or procedures, communicating with other HCPs (not separately reported), independently interpreting results (not separately reported), communicating results to the patient/family/caregiver and care coordination (not separately reported). Counseling Visit 32 minutes for preventive counseling/IBT Screening for obesity completed during initial plan of care. Patient was competent and alert at the time that counseling was provided. 5a's reviewed: Assess- I assessed behavioral health risk/factors affecting --- Asked about/assess behavioral health risk(s) and factors affecting choice of behavior change goals Formal exercise but has been engaging herself more Insulin resistance/metabolic syndrome. Next Advise: clear, specific, personalized behavior change advice. -I gave very clear, specific, and personalized behavior change adviced, including information about personal health harms and benefits. Agree: Patient agrees with selected appropriate treatment goals and methods to change behavior Assist:provided IBT w self-help, handouts, teaching skills and support Using behavior change techniques with self-help and Counseling in achieving Goals. Also discussed supplementing with adjunctive medical treatments when appropriate. Arrange- follow up scheduled, Handouts given to patient My opinion -- 3 hour Rule -last meal /snack 3 hours before sleeping ,try to be done by 7 pm --eat Rich Breakfast - At Least 3 hours break between each meals ,except water --sleep 7 hours at night , that means going to bed early -- drink only water ( no soda or juices) /no Alcohol consumption --cut down on coffee consumption if consuming high amounts Website :You can visit to web site for low carb recipe information as well as visual guide to low carb food: [employer] Limit carb consumption to 80- 100 grams per day. Goals: formal exercise 2-5 x/week as tolerated, start with 10 mins/day to goal of 30 minutes Have 3 meals a day-protein source with each meal (structured meal planning) Food journal daily and bring it to all appointments -- IN GENERAL - suggestions based on important of our sleep cycle called circadian rhythm and its influence on our gut microbiota and overall health tragetory 1) EAT MOST OF YOUR FOOD IN AM AND EARLY PM 2) NO EATING AT NIGHT 3) EXERCISE DURING DAY 4) BE CONSISTENT WITH MEAL STRUCTURE ie Meals at same time during the day. -- keep record of your food intake - it is easier for us to understand your eating habits and food preferences, looking into the amounts of protein, carbs, and fat in your diet. Good examples of apps to track calories are [employer], LOSE IT. Some patient have found FOODUCATE to help with decisions around food, however choose apps that best suits you. -- for exercise, you should shoot for a goal of >150 min per week initially. Depending at what level you are starting, that may seem like an unachievable task. However, the best plan is to just begin to walk or bike or do another activity that you like and track your steps per day. You do not need to pay attention to the time, but you do need to try to increase your exercise every 3 weeks. Other strength exercises, using light weights or training bands may also be useful, especially when combined with regular aerobic exercise. Studies have shown that >200min per week is best to maintain weight loss, so that would be the overall end goal. -- One option we discussed is to REPLACE one of your meals with a liquid meal or frozen meal. This is easy to start and may help with your weight. 1. Liquid meal replacement (Boost, Ensure) 2. Frozen meal (Healthy Choice, Lean Cuisine - sodium under 650mg, can always add veggies to the meal) 3. Powdered protein (Premier Protein) or meal replacement (I like a plant based meal replacement called [employer] - can mix w froz berries and almond milk) This note was partially generated using [employer] voice recognition system, and there may be some incorrect words, spellings, and punctuation that were not noted in checking the note before saving documented in this encounter [facility] 04-23-2022 Instructions Yen Abernathy MD - 04/23/2022 12:02 PM EDT TRYING TO LOSE WEIGHT? Your Body mass index is 37.59 kg/m . (Target BMI: 19-25) A person with a BMI between 25 and 29.9 is considered overweight A person with a BMI of 30 or greater is considered to be obese SETTING A WEIGHT LOSS GOAL: Last 5 Encounter Wt Readings: Date: Wt: 04/23/2022 99.3 kg (219 lb) 01/29/2022 99.8 kg (220 lb) 01/20/2022 110.7 kg (244 lb) 01/12/2022 109.8 kg (242 lb) 08/13/2021 113.4 kg (250 lb) Lose 10% of body weight over six months, about 1-2 lbs per week LIFESTYLE CHANGES The goals of lifestyle changes are to help you change your eating habits, become more active, and be more aware of how much you eat and exercise, helping you to make healthier choices. This can be broken down into three steps: 1. Triggers to eat Determining what triggers you to eat involves figuring out what foods you eat and where and when you eat. To figure out what triggers you to eat, keep a record for a few days of everything you eat, the places where you eat, how often you eat, and the emotions you were feeling when you ate. For some people, the trigger is related to a certain time of day or night. For others, the trigger is related to a certain place, like sitting at a desk working. 2. Eating You can change your eating habits by breaking the chain of events between the trigger for eating and eating itself. There are many ways to do this. For instance, you can: Limit where you eat to a few places (eg, dining room) Restrict the number of utensils (eg, only a fork) used for eating Drink a sip of water between each bite Chew your food a certain number of times Get up and stop eating every few minutes 3. What happens after you eat Rewarding yourself for good eating behaviors can help you to develop better habits. This is not a reward for weight loss; instead, it is a reward for changing unhealthy behaviors. Do not use food as a reward. Some people find money, clothing, or personal care (eg, a hair cut, manicure, or massage) to be effective rewards. Treat yourself immediately after making better eating choices to reinforce the value of the good behavior. You need to have clear behavior goals, and you must have a time frame for reaching your goals. Reward small changes along the way to your final goal. Other factors that contribute to successful weight loss Establish a luanne system Having a friend or family member available to provide support and reinforce good behavior is very helpful. The support person needs to understand your goals. Learn to be strong Learning to be strong when tempted by food is an important part of losing weight. As an example, you will need to learn how to say no and continue to say no when urged to eat at parties and social gatherings. Develop strategies for events before you go, such as eating before you go or taking low-calorie snacks and drinks with you. Develop a support system Having a support system is helpful when losing weight. This is why many commercial groups are successful. Family support is also essential; if your family does not support your efforts to lose weight, this can slow your progress or even keep you from losing weight. Positive thinking People often have conversations with themselves in their head; these conversations can be positive or negative. If you eat a piece of cake that was not planned, you may respond by thinking, Oh, you stupid idiot, you've blown your diet! and as a result, you may eat more cake. A positive thought for the same event could be, Well, I ate cake when it was not on my plan. Now I should do something to get back on track. A positive approach is much more likely to be successful than a negative one. Reduce stress Although stress is a part of everyday life, it can trigger uncontrolled eating in some people. It is important to find a way to get through these difficult times without eating or by eating low-calorie food, like raw vegetables. It may be helpful to imagine a relaxing place that allows you to temporarily escape from stress. With deep breaths and closed eyes, you can imagine this relaxing place for a few minutes. Self-help programs Self-help programs like Weight Watchers , Overeaters Anonymous , and Take Off Pounds Sensibly (TOPS) work for some people. As with all weight loss programs, you are most likely to be successful with these plans if you make long-term changes in how you eat. CHOOSING A DIET A calorie is a unit of energy found in food. Your body needs calories to function. The goal of any diet is to burn up more calories than you eat. How quickly you lose weight depends upon several factors, such as your age, gender, and starting weight. Older people have a slower metabolism than young people, so they lose weight more slowly. Men lose more weight than women of similar height and weight when dieting because they use more energy. People who are extremely overweight lose weight more quickly than those who are only mildly overweight. How many calories do I need? You can estimate the number of calories you need per day based upon your current (or target) weight, gender, and activity level for women and for men. In general, it is best to choose foods that contain enough protein, carbohydrates, essential fatty acids, and vitamins. Try not to drink alcohol or drinks with added sugar, and most sweets (candy, cakes, cookies), since they rarely contain important nutrients. Portion-controlled diets One simple way to diet is to buy packaged foods, like frozen low-calorie meals or meal-replacement canned drinks. A typical meal plan for 1000 to 1500 calories per day may include: A meal-replacement drink or breakfast bar for breakfast A meal-replacement drink or a frozen low-calorie (250 to 350 calories) meal for lunch A frozen low-calorie meal or other prepackaged, calorie-controlled meal, along with extra vegetables for dinner Low-fat diet To reduce the amount of fat in your diet, you can: Eat low-fat foods. Low-fat foods are those that contain less than 30 percent of calories from fat. Fat is listed on the food facts label Count fat grams. For a 1500 calorie diet, this would mean about 45 g or fewer of fat per day. Low-carbohydrate diet Low- and gezg-qgt-lyzrugpjpnlv diets (eg, Atkins diet, [employer] diet) have become popular ways to lose weight quickly. With a lytw-zdy-fodkdtvdyzji diet, you eat between 0 and 60 grams of carbohydrates per day (a standard diet contains 200 to 300 grams of carbohydrates) With a low-carbohydrate diet, you eat between 60 and 130 grams of carbohydrates per day Carbohydrates are found in fruits, vegetables, and grains (including breads, rice, pasta, and cereal), alcoholic beverages, and in dairy products. Meat and fish do not contain carbohydrates. Side effects of bjkw-ney-tlszdwyubwhn diets can include constipation, headache, bad breath, muscle cramps, diarrhea, and weakness. Mediterranean diet The term Mediterranean diet refers to a way of eating that is common in olive-growing regions around the [place] Sea. Although there is some variation in Mediterranean diets, there are some similarities. Most Mediterranean diets include: A high level of monounsaturated fats (from olive or canola oil, walnuts, pecans, almonds) and a low level of saturated fats (from butter) A high amount of vegetables, fruits, legumes, and grains (7 to 10 servings of fruits and vegetables per day) A moderate amount of milk and dairy products, mostly in the form of cheese. Use low-fat dairy products (skim milk, fat-free yogurt, low-fat cheese). A relatively low amount of red meat and meat products. Substitute fish or poultry for red meat. For those who drink alcohol, a modest amount (mainly as red wine) may help to protect against cardiovascular disease. A modest amount is up to one (4 ounce) glass per day for women and up to two glasses per day for men. Which diet is best? No one diet is best for weight loss. Any diet will help you to lose weight if you stick with the diet. Therefore, it is important to choose a diet that includes foods you like. Fad diets Fad diets often promise quick weight loss (more than 1 to 2 pounds per week) and may claim that you do not need to exercise or give up favorite foods. Some fad diets cost a lot of money, because you have to pay for seminars or pills. Fad diets generally lack any scientific evidence that they are safe and effective, but instead rely on before and after photos or testimonials. Diets that sound too good to be true usually are. These plans are a waste of time and money and are not recommended. A doctor, nurse, or wood heel fitter machine can help you find a safe and effective way to lose weight and keep it off. Adapted from [facility] My opinion 3 hour Rule: -last meal /snack 3 hours before sleeping ,but mostly try to be done by 7 pm --eat Rich Breakfast, high in protein hard boiled eggs/protein drinks - At least 3 hours break between each meals ,except water --sleep 7 hours at night , that means going to bed early -- drink only water ( no soda or juices) /no Alcohol consumption --cut down on coffee consumption if consuming high amounts Website :You can visit to web site for low carb recipe information as well as visual guide to low carb food: Https://www.dietdoctor.com/ ( visual guide for low carb diet) Limit carb consumption to 80- 100 grams per day. Goals: formal exercise 2-5 x/week as tolerated, start with 10 mins/day to goal of 30 minutes ( -- for exercise, you should shoot for a goal of >150 min per week initially. Depending at what level you are starting, that may seem like an unachievable task. However, the best plan is to just begin to walk or bike or do another activity that you like and track your steps per day. You do not need to pay attention to the time, but you do need to try to increase your exercise every 3 weeks. Other strength exercises, using light weights or training bands may also be useful, especially when combined with regular aerobic exercise. Studies have shown that >200min per week is best to maintain weight loss, so that would be the overall end goal.) Have 3 meals a day-protein source with each meal (structured meal planning) Food journal daily and bring it to all appointments If you want you can REPLACE one of your meals with a liquid meal or frozen meal. This is easy to start and may help with your weight. 1. Liquid meal replacement (Boost, Ensure) 2. Frozen meal (Healthy Choice, Lean Cuisine - sodium under 650mg, can always add veggies to the meal) 3. Powdered protein (Premier Protein) or meal replacement (I like a plant based meal replacement called [employer] Nutrition - can mix w froz berries and almond milk) -- IN GENERAL - suggestions based on important of our sleep cycle called circadian rhythm and its influence on our gut microbiota and overall health tragetory 1) EAT MOST OF YOUR FOOD IN AM AND EARLY PM 2) NO EATING AT NIGHT 3) EXERCISE DURING DAY 4) BE CONSISTENT WITH MEAL STRUCTURE ie Meals at same time during the day. -- keep record of your food intake - it is easier for us to understand your eating habits and food preferences, looking into the amounts of protein, carbs, and fat in your diet. Good examples of apps to track calories are [employer]AL, LOSE IT. Some patient have found FOODUCATE to help with decisions around food, however choose apps that best suits you. - Rx metformin, risks and benefits discussed at length. The pt understands the potential side effects (including gastrointestinal problems) and is instructed to increase the dose as tolerated. documented in this encounter [facility] 04-22-2022 Miscellaneous Notes Patient sent a [employer] message requesting the following refill. Pending Prescriptions Disp Refills METFORMIN ER 500 MG TABLET,EXTENDED RELEASE 24 HR 90 tablet 0 Sig: Take 1 tablet by mouth daily with breakfast. KASEY: No Next Appointment: 04/23/2022 Patient Phone numbers: [phone] (home) Request is for script(s) to be escript to pharmacy. Matthew Gambino MA documented in this encounter [facility] 04-07-2022 Miscellaneous Notes Pharmacy faxed requesting the following refill. Pending Prescriptions Disp Refills LEFLUNOMIDE 20 MG TABLET 30 tablet 2 Sig: Take 1 tablet by mouth once daily. KASEY: No Patient last appointment: 01/12/22 Next Appointment: 05/18/2022 Patient Phone numbers: [phone] (home) Request is for script(s) to be escript to pharmacy. Rhianna Harris MA documented in this encounter [facility] 03-27-2022 Miscellaneous Notes Patient wants to know if she can increase her topamax from 50 mg to 75 mg. Please advise Matthew Gambino MA March 27, 2022 documented in this encounter [facility] 03-18-2022 History of Present illness Narrative Associated Order(s): Large Joint Arthro/Inj: R knee joint Post-Procedure Diagnose(s): Arthritis of knee Images from the original note were not included. Follow Up Visit Chief Complaint Germán Martinez is a 57 year old female who presents today for follow up office visit. Patient presents with: Right Knee - Follow Up, Knee Pain History of Present Illness PAIN EVALUATION 03/18/2022 1514 Pain Level: 2 Pain Location: Knee-Right Description: Aching;Dull;Sore;Throbbing Duration Amount of Time: ongoing Frequency: Intermittent Intervention/Comfort measure: Reposition;Relaxation;Cold;Medicat ion;Other: See comment cortisone injection HPI: Germná Martinez is a 57 year old female Large Joint Arthro/Inj: R knee joint Informed Consent Consent Obtained: Verbal [place]mita Protocol A moment to CARE was completed. SIGN IN Personnel directly involved with the procedure wore the appropriate PPE. Special Equipment: N/A Patient/Surrogate Stated/Verified: Patient name, Date of , Relevant allergies and Intended procedure TIME OUT Intended patient and procedure match the source document(s). Consent documented and matches the intended procedure. Relevant labs, photos, and/or imaging studies have been reviewed. No correct side/site applicable for marking and visibility. Medications required for procedure verified. Fire risk assessed and interventions discussed. No implant(s) inserted. 03/21/2022 12:59 PM The procedure site was prepped in the usual sterile fashion. Site: R knee joint Medications: 80 mg triamcinolone acetonide 40 mg/mL Anesthetics: 8 mL ropivacaine (PF) 5 mg/mL (0.5 %) Outcome: Tolerated well, no immediate complications Post-injection instructions were reviewed with the patient and the patient voiced understanding of these instructions. SIGN OUT All specimen containers correctly labeled. All instruments, equipment, possible retained foreign bodies accounted for. Post-procedure follow-up management communicated and Plan of Care Visit completed when applicable for a follow up visit right knee pain. Patient had a cortisone injection at last visit that helped significantly. She started to feel some irritation over weekend, she was very active. Pain history is noted as above. Denies calf pain, numbness, tingling, fever, chills or other constitutional symptoms. On topamax and has lost weight and feels better overall and more energy. Seeing wt loss physician and is very happy with her progress. Is there any overall improvement in your condition? Yes, relief from injection Any new injury, since being seen last: No REVIEW OF SYMPTOMS: Patient did not have, and does not currently have, any weight loss, malaise, fever, chills, headache, chest pain, chest pressure, palpitations, cough, shortness of breath, orthopnea, paroxsymal nocturnal dyspnea, nausea, vomiting, diarrhea, constipation, melena, hematochezia, urinary difficulties, prolonged bleeding, easily bruising, heat or cold intolerance, new onset joint pain or swelling, new onset extremity weakness or numbness, new onset auditory or visual disturbances, lightheadedness, dizziness, partial loss of consciousness or full loss of consciousness. Current Outpatient Medications Medication Sig topiramate (TOPAMAX) 25 mg tablet Take 2 tablets by mouth once daily. metFORMIN ER (GLUCOPHAGE XR) 500 mg 24 hr tablet Take 1 tablet by mouth daily with breakfast. leflunomide (ARAVA) 20 mg tablet Take 1 tablet by mouth once daily. Cholecalciferol, Vitamin D3, (VITAMIN D) 25 mcg (1,000 unit) cap Take 1,000 Units by mouth once daily. amLODIPine (NORVASC) 10 mg tablet Take 10 mg by mouth once daily. simvastatin (ZOCOR) 10 mg tablet Take 10 mg by mouth daily at bedtime. meloxicam (MOBIC) 7.5 mg tablet Take 7.5 mg by mouth once daily. cyclobenzaprine (FLEXERIL) 10 mg tablet Take 5 mg by mouth at bedtime as needed. hydroCHLOROthiazide 12.5 mg capsule Take 12.5 mg by mouth once daily. lisinopril (ZESTRIL, PRINIVIL) 20 mg tablet Take 1 tablet by mouth once daily. levothyroxine (SYNTHROID) 75 mcg tablet Take 75 mcg by mouth once daily. No current facility-administered medications for this visit. Physical Exam Vitals: There were no vitals taken for this visit. Psych: Pleasant, good affect and mood General Appearance: Well appearing, alert, in no acute distress, well-hydrated, well nourished.. Skin: Skin color, texture, turgor normal, no suspicious rashes or lesions. Peripheral Pulses: Normal. Neurologic: Gait normal. Reflexes normal and symmetric. Sensation grossly intact.. Lymph Nodes: No cervical lymphadenopathy, No supraclavicular lymphadenopathy, No axillary lymphadenopathy. and No inguinal lymphadenopathy.. Respiratory: No recent pulmonary infection, hemoptysis, chronic cough, or shortness of breath at rest Rheumatologic: Joint deformities: Right knee pain Right Knee Exam Muscle Strength The patient has normal right knee strength. Tenderness The patient is experiencing tenderness in the medial joint line. Range of Motion Extension: normal Flexion: normal Tests Karissa: Medial - positive Misha: Anterior - negative Posterior - negative Drawer: Anterior - negative Posterior - negative Other Erythema: absent Sensation: normal Pulse: present Swelling: none Comments: Pos crepitus right knee Left Knee Exam Left knee exam is normal. Muscle Strength The patient has normal left knee strength. Tenderness The patient is experiencing no tenderness. Range of Motion Extension: normal Flexion: normal Tests Misha: Anterior - negative Posterior - negative Drawer: Anterior - negative Posterior - negative Other Erythema: absent Sensation: normal Pulse: present Swelling: none Comments: Neg homans bilaterally Assessment and Plan Radiographs: I have independently reviewed films and my findings are the same. Impression: No diagnosis found. Today, in detail, through a thorough evaluation, we discussed possible etiologies of pain and our plans for further diagnostic and therapeutic interventions. We discussed strategies for decreasing pain and improving strength, stability and motion. Patient's questions were answered in detailed. Patient verbalizes understanding and agrees with the treatment plan as discussed. Discussed with patient possible options for treatment. Patient elected proceed with injection. Patient told not to submerge the injected area for 24 hours in a hot tub, or bath, injection may take 2 weeks for improvement to be noticed, follow-up in 2 -6 weeks if symptoms do not resolve. All questions answered patient agreement of plan. Apply ice Limit activities as discussed Rest Do not submerge limb in water for 24 hours Cont current meds Watch sugars/decrease carbs Call if warm/hot/red Discussed with patient that if the injection does not work after 2 to 4 weeks to come back for reevaluation. Discussed the next 3 days may feel worse before it feels better. Discussed if having continued pain to return. May get injection every 3 months documented in this encounter [facility] 02-03-2022 Miscellaneous Notes The following approved medication requests have been transmitted electronically. Signed Prescriptions Disp Refills topiramate (TOPAMAX) 25 mg tablet 90 tablet 1 Sig: Take 2 tablets by mouth once daily. Yen Abernathy MD documented in this encounter [facility] 01-30-2022 Miscellaneous Notes Patient notified and verbalized understanding. Katherine Perez LPN ----- Message from Kaelyn Fish MD sent at 01/27/2022 12:27 PM EDT ----- Lab work for arava is normal documented in this encounter [facility] 01-30-2022 Miscellaneous Notes Patient k level 3.2 kcl 10 meq for [address] Landry notified; Patient notified to follow up with pcp. documented in this encounter [facility] 01-29-2022 Miscellaneous Notes Patient message sent regarding lemon in water and abnormal taste from medications as well as follow up appt. with with Dr. Abernathy in 10 days. documented in this encounter [facility] 01-29-2022 Miscellaneous Notes Addended by: VELMA SHOOK on: 01/29/2022 02:01 PM Modules accepted: Orders documented in this encounter [facility] 01-29-2022 Instructions Velma Shook APRN.CNP - 01/29/2022 12:39 PM EDT Images from the original note were not included. Dear Rupal Juan, It was a pleasure to care for you today: here are some of today's highlights: Diet: try protein replacement shake, Fair Life or Premier Protein, less sugar and 30 grams of protein; You want 60 grams of protein and 60 ounces of water daily- See below suggestions: Exercise: Continue exercise program and see some suggestions below for strengthening and simple exercises to incorporate; Medications: Continue Metformin and Topiramate Sleep - continue cpap Stress: Consider:PEACE OF MIND PROGRAM: PURPOSEFUL EATING ACTIVITY CALMING EMOTIONS IF INTERESTED CALL: OR EMAIL [email or web address] - topics covered include emotional eating, mindfulness, physical activity, goal setting, positive mindset, stress management, motivation commitment, basic nutrition and relaxation strategies Meal replacements: https://www.[employer].com/food-nu trition/z94410767/1-myxx-nqkv-repl acements/ Meal replacements. One option that works for some people is to use meal replacements, as in the DiRECT and Look AHEAD trials.The available options in Look AHEAD included shakes, bars, and meals from a variety of companies ([employer], [employer], OptiYeHive, and SlimYeHive). The calorie content was 150 to 220 calories, depending on the product. People who used meal replacements 12 times a week instead of preparing their own meals lost about 11% of their weight in the first year, whereas those who used just two per week lost about 6% of their weight. Keep in mind, though, that people in the trial who used meal replacements also tended to consume a healthier diet over all; they were more likely to have met their goals for dietary fat, fruits and vegetables, and dairy foods, and to have cut back on sweets, than those who didn t use meal replacements. Similarly, in the DiRECT trial, participants consumed special nutritionally complete shakes and soups (the Counterweight-Plus program) for the first 12 weeks.If you opt for meal-replacement drinks, bars, or frozen entrees, here are some criteria to look for: calories, 150 to 300 fat, 3 to 10 grams protein, > 20 grams sugar < 5 g Meal replacements are typically fortified with vitamins and minerals and contain some fiber. Because they are calorie controlled, the amount of added sugars is usually minimal. If you want to try this approach to boost weight loss, ask your dietitian or another member of your health care team how to incorporate the replacements into your meal planning and discuss whether you might need to reduce your doses of diabetes medications to prevent hypoglycemia (low blood sugar) as you cut calories and lose weight. It is important to find a meal-replacement product that suits your taste. If you prefer not to consume processed foods, you can make your own portion-controlled versions. Note that meal replacements don t work for everyone. While some people like meal-replacement shakes, bars, and soups and find them to be a convenient way to sustain a reduced calorie intake over time, others don t feel satisfied drinking them and often end up simply adding them to what they d normally eat which could lead to weight gain. What s more, some people have a hard time readjusting to eating real food after they stop using meal replacements. My opinion 3 hour Rule: -last meal /snack 3 hours before sleeping ,but mostly try to be done by 7 pm --eat Rich Breakfast, high in protein hard boiled eggs/protein drinks - At least 3 hours break between each meals ,except water --sleep 7 hours at night , that means going to bed early -- drink only water ( no soda or juices) /no Alcohol consumption --cut down on coffee consumption if consuming high amounts Website :You can visit to web site for low carb recipe information as well as visual guide to low carb food: Https://www.dietNuovo Windctor.nuMVC/ ( visual guide for low carb diet) Limit carb consumption to 80- 100 grams per day. Goals: formal exercise 2-5 x/week as tolerated, start with 10 mins/day to goal of 30 minutes ( -- for exercise, you should shoot for a goal of >150 min per week initially. Depending at what level you are starting, that may seem like an unachievable task. However, the best plan is to just begin to walk or bike or do another activity that you like and track your steps per day. You do not need to pay attention to the time, but you do need to try to increase your exercise every 3 weeks. Other strength exercises, using light weights or training bands may also be useful, especially when combined with regular aerobic exercise. Studies have shown that >200min per week is best to maintain weight loss, so that would be the overall end goal.) Have 3 meals a day-protein source with each meal (structured meal planning) Food journal daily and bring it to all appointments If you want you can REPLACE one of your meals with a liquid meal or frozen meal. This is easy to start and may help with your weight. 1. Liquid meal replacement (Boost, Ensure) 2. Frozen meal (Healthy Choice, Lean Cuisine - sodium under 650mg, can always add veggies to the meal) 3. Powdered protein (Premier Protein) or meal replacement (I like a plant based meal replacement called Healthy [employer] Nutrition - can mix w froz berries and almond milk) -- IN GENERAL - suggestions based on important of our sleep cycle called circadian rhythm and its influence on our gut microbiota and overall health tragetory 1) EAT MOST OF YOUR FOOD IN AM AND EARLY PM 2) NO EATING AT NIGHT 3) EXERCISE DURING DAY 4) BE CONSISTENT WITH MEAL STRUCTURE ie Meals at same time during the day. -- keep record of your food intake - it is easier for us to understand your eating habits and food preferences, looking into the amounts of protein, carbs, and fat in your diet. Good examples of apps to track calories are [employer]ernixDataPAL, LOSE IT. Some patient have found FOODUCATE to help with decisions around food, however choose apps that best suits you. EXERCISE: Simple Exercises https://www.eCulletube.com/watch?v=pU YxcRvdal8 Chel Cisneros https://www.eCulletube.com/watch?v=xY 7v9YVXAPW Strength training: Get stronger, leaner, healthier Strength training is an important part of an overall fitness program. Here's what strength training can do for you and how to get started. By [facility] Staff Related article Strength training: How-to video collection Want to reduce body fat, increase lean muscle mass and burn calories more efficiently? Strength training to the rescue! Strength training is a anand component of overall health and fitness for everyone. Use it or lose it Lean muscle mass naturally diminishes with age. Your body fat percentage will increase over time if you don't do anything to replace the lean muscle you lose over time. Strength training can help you preserve and enhance your muscle mass at any age. Strength training may also help you: Develop strong bones. By stressing your bones, strength training can increase bone density and reduce the risk of osteoporosis. Manage your weight. Strength training can help you manage or lose weight, and it can increase your metabolism to help you burn more calories. Enhance your quality of life. Strength training may enhance your quality of life and improve your ability to do everyday activities. Strength training can also protect your joints from injury. Building muscle also can contribute to better balance and may reduce your risk of falls. This can help you maintain independence as you age. Manage chronic conditions. Strength training can reduce the signs and symptoms of many chronic conditions, such as arthritis, back pain, obesity, heart disease, depression and diabetes. Sharpen your thinking skills. Some research suggests that regular strength training and aerobic exercise may help improve thinking and learning skills for older adults. Consider the options Strength training can be done at home or in the gym. Common choices may include: Body weight. You can do many exercises with little or no equipment. Try pushups, pullups, planks, lunges and squats. Resistance tubing. Resistance tubing is inexpensive, lightweight tubing that provides resistance when stretched. You can choose from many types of resistance tubes in nearly any sporting [employer] store or online. Free weights. Barbells and dumbbells are classic strength training tools. If you don't have weights at home, you can use soup cans. Other options can include using medicine balls or kettle bells. Weight machines. Most fitness centers offer various resistance machines. You can invest in weight machines for use at home, too. Cable suspension training. Cable suspension training is another option to try. In cable suspension training, you suspend part of your body such as your legs while doing body weight training such as pushups or planks. Getting started If you have a chronic condition, or if you're older than age 40 and you haven't been active recently, check with your doctor before beginning a strength training or aerobic fitness program. Before beginning strength training, consider warming up with brisk walking or another aerobic activity for five or 10 minutes. Cold muscles are more prone to injury than are warm muscles. Choose a weight or resistance level heavy enough to tire your muscles after about 12 to 15 repetitions. When you can easily do more repetitions of a certain exercise, gradually increase the weight or resistance. Research shows that a single set of 12 to 15 repetitions with the proper weight can build muscle efficiently in most people and can be as effective as three sets of the same exercise. As long as you take the muscle you are working to fatigue meaning you can't lift another repetition you are doing the work necessary to make the muscle stronger. And fatiguing at a higher number of repetitions means you likely are using a hospice volunteer coordinator weight, which will make it easier for you to control and maintain correct form. To give your muscles time to recover, rest one full day between exercising each specific muscle group. Also be careful to listen to your body. If a strength training exercise causes pain, stop the exercise. Consider trying a lower weight or trying it again in a few days. It's important to use proper technique in strength training to avoid injuries. If you're new to strength training, work with a development trainer or other swine extension field specialist to learn correct form and technique. Remember to breathe as you strength train. When to expect results You don't need to spend hours a day lifting weights to benefit from strength training. You can see significant improvement in your strength with just two or three 20- or 30-minute strength training sessions a week. For most healthy adults, the Department of Health and Human Services recommends these exercise guidelines: Aerobic activity. Get at least 150 minutes of moderate aerobic activity or 75 minutes of vigorous aerobic activity a week, or a combination of moderate and vigorous activity. The guidelines suggest that you spread out this exercise during the course of a week. Greater amounts of exercise will provide even greater health benefits. But even small amounts of physical activity are helpful. Being active for short periods of time throughout the day can add up to provide health benefits. Strength training. Do strength training exercises for all major muscle groups at least two times a week. Aim to do a single set of each exercise, using a weight or resistance level heavy enough to tire your muscles after about 12 to 15 repetitions. As you incorporate strength training exercises into your fitness routine, you may notice improvement in your strength over time. As your muscle mass increases, you'll likely be able to lift weight more easily and for longer periods of time. If you keep it up, you can continue to increase your strength, even if you're not in shape when you begin. https://www.[facility].org/healthy -lifestyle/fitness/in-depth/streng th-training/art-07158670#:~:text=S trength%20training%20may%20enhance %20your,maintain%20independence%20 as%20you%20age. Simple Exercises https://www.youMassively Funube.com/watch?v=pU YxcRvdal8 Chel Cisneros https://www.youtube.com/watch?v=xY 5e5YBXDTQ Strength training: Get stronger, leaner, healthier Strength training is an important part of an overall fitness program. Here's what strength training can do for you and how to get started. By [facility] Staff Related article Strength training: How-to video collection Want to reduce body fat, increase lean muscle mass and burn calories more efficiently? Strength training to the rescue! Strength training is a anand component of overall health and fitness for everyone. Use it or lose it Lean muscle mass naturally diminishes with age. Your body fat percentage will increase over time if you don't do anything to replace the lean muscle you lose over time. Strength training can help you preserve and enhance your muscle mass at any age. Strength training may also help you: Develop strong bones. By stressing your bones, strength training can increase bone density and reduce the risk of osteoporosis. Manage your weight. Strength training can help you manage or lose weight, and it can increase your metabolism to help you burn more calories. Enhance your quality of life. Strength training may enhance your quality of life and improve your ability to do everyday activities. Strength training can also protect your joints from injury. Building muscle also can contribute to better balance and may reduce your risk of falls. This can help you maintain independence as you age. Manage chronic conditions. Strength training can reduce the signs and symptoms of many chronic conditions, such as arthritis, back pain, obesity, heart disease, depression and diabetes. Sharpen your thinking skills. Some research suggests that regular strength training and aerobic exercise may help improve thinking and learning skills for older adults. Consider the options Strength training can be done at home or in the gym. Common choices may include: Body weight. You can do many exercises with little or no equipment. Try pushups, pullups, planks, lunges and squats. Resistance tubing. Resistance tubing is inexpensive, lightweight tubing that provides resistance when stretched. You can choose from many types of resistance tubes in nearly any sporting goods store or online. Free weights. Barbells and dumbbells are classic strength training tools. If you don't have weights at home, you can use soup cans. Other options can include using medicine balls or kettle bells. Weight machines. Most fitness centers offer various resistance machines. You can invest in weight machines for use at home, too. Cable suspension training. Cable suspension training is another option to try. In cable suspension training, you suspend part of your body such as your legs while doing body weight training such as pushups or planks. Getting started If you have a chronic condition, or if you're older than age 40 and you haven't been active recently, check with your doctor before beginning a strength training or aerobic fitness program. Before beginning strength training, consider warming up with brisk walking or another aerobic activity for five or 10 minutes. Cold muscles are more prone to injury than are warm muscles. Choose a weight or resistance level heavy enough to tire your muscles after about 12 to 15 repetitions. When you can easily do more repetitions of a certain exercise, gradually increase the weight or resistance. Research shows that a single set of 12 to 15 repetitions with the proper weight can build muscle efficiently in most people and can be as effective as three sets of the same exercise. As long as you take the muscle you are working to fatigue meaning you can't lift another repetition you are doing the work necessary to make the muscle stronger. And fatiguing at a higher number of repetitions means you likely are using a hospice volunteer coordinator weight, which will make it easier for you to control and maintain correct form. To give your muscles time to recover, rest one full day between exercising each specific muscle group. Also be careful to listen to your body. If a strength training exercise causes pain, stop the exercise. Consider trying a lower weight or trying it again in a few days. It's important to use proper technique in strength training to avoid injuries. If you're new to strength training, work with a development trainer or other swine extension field specialist to learn correct form and technique. Remember to breathe as you strength train. When to expect results You don't need to spend hours a day lifting weights to benefit from strength training. You can see significant improvement in your strength with just two or three 20- or 30-minute strength training sessions a week. For most healthy adults, the Department of Health and Human Services recommends these exercise guidelines: Aerobic activity. Get at least 150 minutes of moderate aerobic activity or 75 minutes of vigorous aerobic activity a week, or a combination of moderate and vigorous activity. The guidelines suggest that you spread out this exercise during the course of a week. Greater amounts of exercise will provide even greater health benefits. But even small amounts of physical activity are helpful. Being active for short periods of time throughout the day can add up to provide health benefits. Strength training. Do strength training exercises for all major muscle groups at least two times a week. Aim to do a single set of each exercise, using a weight or resistance level heavy enough to tire your muscles after about 12 to 15 repetitions. As you incorporate strength training exercises into your fitness routine, you may notice improvement in your strength over time. As your muscle mass increases, you'll likely be able to lift weight more easily and for longer periods of time. If you keep it up, you can continue to increase your strength, even if you're not in shape when you begin. https://www.[facility].org/healthy -lifestyle/fitness/in-depth/streng th-training/art-38535836#:~:text=S trength%20training%20may%20enhance %20your,maintain%20independence%20 as%20you%20age. MEDICATIONS: Topiramate (toe pyre a mate) - Please start topiramate as discussed. Take one tablet (25mg) every night and increase to 2 tablets at night (50MG) after 2 weeks if there is no change in your appetite, cravings or weight. -- You can take it at night at first (because of potential sleepiness side effects), but earlier around dinner after you have started the medication for a few days. You also may be able to take it in the morning if easier. -- We may increase the dose to 3 tablets (75mg) a few weeks later if there is no change with 50mg and continue to increase the medication in this way (usually no more than 150mg). But it is best to contact me after 1 month to discuss continued increases of the medication. -- Please see the handout to review the potential side effects and to explain this further -Also discussed that when on topiramate , I would recommend using 2 different kind if control methods, Due to several anomaly( if female in reproductive age group) --no while on this medications --pt Agrees and verbalizes understanding. What are the common names? Topamax Why is this medication prescribed? Topiramate is an anti-epileptic medications which has been approved by the FDA for patients 10 years of age or older for treatment of seizures. However, topiramate also has other uses such as the treatment of migraines. It also causes decrease in appetite and weight loss. The mechanism of weight loss is thought to be through inhibition of mitochondrial enzymes involved in energy expenditure and metabolism. Topiramate may work by helping you feel less hungry, less driven to eat, more satisfied with less food. However while phentermine and topiramate in combination are approved by FDA for long-term treatment of obesity, topiramate as stand alone pharmacotherapy has not been approved for this purpose. Has been used in treatment of obesity as an off label, as discussed during your visit. What special precautions should I follow? --Recommended appropriate and consistent control method in women to prevent conception while taking topiramate.(recommended at least 2 methods of contraception as at times it can decrease the effectiveness of oral control pills) --(women in child bearing age ) I strongly recommend discontinue the use of medication prior to conception as the medication may be linked to anomalies and not safe to utilize during . Before having topiramate prescribed, tell your doctor and pharmacist: If you have allergies to any component of topiramate If you are , plan to become , are breast-feeding, or if you become while taking topiramate What are the warnings and precautions for this medication? Immediately discontinue the medicine and seek medical help if you have severe cognitive/neuropsychiatric adverse symptoms or eye symptoms. Cognitive/neuropsychiatric adverse events: symptoms may include confusion, psychomotor slowing, difficulty with concentration/attention, difficulty with memory, speech or language problems, particularily word-finding difficulties, somnolence or fatigue Acute myopia and secondary angle closure glaucoma, usually within 1 month of starting treatment: symptoms may include blurred vision, redness and/or pain in the eye Oligohydrosis (decrease sweating) and hyperthermia (elevation in body temperature) Increase in suicidal behavior or ideation Metabolic acidosis, non-gap hyperchloremic (decreased serum bicarbonate below normal levels) resulting in hyperventilation or fatigue Kidney stones Paresthesias (numbness or tingling in hands or feet) Ataxia Dizziness Increase in urination frequency Drug interactions. Use of monamine oxidase inhibitors (MAOI s), valproic acid, Caution use with dehydration or diarrheal illness, hepatic or renal impairment In case of emergency/overdose In case of overdose, call your local poison control center at or call local emergency services at [phone]. What other information should I know? Keep all appointments with your doctor and the laboratory. Do not let anyone else take your medication. Topiramate use needs to be monitored closely. Prescriptions may be refilled only a limited number of times. Keep a written list of all of your prescription and nonprescription (gwtg-[id number]) medicines, in addition to vitamins, minerals, or other dietary supplements. How should I monitor while on this medication? Your doctor will check your baseline kidney function and electrolytes prior to starting this medication, then periodically. Continue to improve your dietary and physical activity habits as the combination works best while on this medication. Start out by taking the medication at bedtime as it can cause fatigue and sleepiness. Be sure to eat regular meals. Less hunger does not make it appropriate to skip meals. Make sure to have an eye exam, including the pressure in your eyes (intra-ocular pressure), once a year. What should I do if I forget a dose? Skip the missed dose and continue your regular dosing schedule the next day. Do not take a double dose to make up for a missed one. Sources Pubmed Health: http://www.ncbi.nlm.nih.gov/pubmed health/VTY5189788/ Drugs.com http://www.drugs.com/pro/topiramat e.html Metformin 500 mg with dinner daily. Common side effects of this medication include nausea, changes in bowel habits, abdominal discomfort, and flatulence. Taking the medication with food will help. Side effects also typically get better with time. Rarely, a severe side effect called lactic acidosis can occur. If you experience malaise, muscle aches, difficulty breathing, or severe abdominal pain, please seek immediate medical attention. documented in this encounter [facility] 01-29-2022 History of Present illness Narrative Images from the original note were not included. BMI Obesity Medicine FollowUp Note Due to the COVID-19 National Emergency, this patient was asked if they would like to keep the previously scheduled appointment, reschedule their appointment or replaced the appointment with this telephone visit. The patient is aware of the risks, benefits, and possible coinsurance/copay cost. In addition, I validate that this patient is physically located in the [facility] during this telephone visit. The patient has verified they are in a secure location with acceptable privacy for a telehealth visit. January 29, 2022 Patient Summary: is 56 year old Female who presents for follow-up evaluation of her obesity and related complications to the [facility] Bariatric and Metabolic [place]. In our previous visits we have outlined an individualized lifestyle intervention including a personalized nutrition recommendations and physical activity optimization. Germán Martinez is here today for follow up evaluation for non surgical weight loss managment. her last office visit was 2 weeks(s) ago with Dr. Abernathy . Assessement/plan from last visit: (exported from Dr. Abernathy's last note) ASSESSMENT/PLAN: 1. Class 3 severe obesity with serious comorbidity in adult, unspecified BMI, unspecified obesity type (HCC) - ICD9: 278.01, ICD10: E66.01 (primary diagnosis) Weight increasing - Behavioral and pharmacological intervention -- counseled in length ,recommended Low carb /low sugar diet --managing maladaptive eating behaviors and adding resistance exercise. Continue low carb diet, weights/cardio exercise and increase NEAT. -I have also reviewed he possibility of using weight loss medications in an effort to reduce her appetite. I have reviewed the different therapeutic options available including phentermine, Qsymia, Contrave, Belviq and Saxenda,Topiramate, Metformin, Bupropion We have also reviewed the possibility of using on her medications such as Effexor or metformin which has been also associated with weight loss. I reviewed with patient that she. We agreed that trying Topiramate and Metformin could be her best option at this point. I reviewed with the patient pros and cons of taking this medication. 2. Primary hypertension - ICD9: 401.9, ICD10: I10 - suboptimal control --wt Loss may help with blood pressure as well. --Recommended to discuss this with her primary care. - Continue current medication(s) - Recommended regular aerobic exercise. - Recommend home blood pressure monitoring, to bring results in on next visit - Goal of BP <130/80 3. Rheumatoid arthritis involving multiple sites, unspecified whether rheumatoid factor present (HCC) - ICD9: 714.0, ICD10: M06.9 -Pain can be a limiting factor for increased physical activities. 4. Obstructive sleep apnea syndrome - ICD9: 327.23, ICD10: G47.33 Encouraged to use his CPAP regularly 5. Acquired hypothyroidism - ICD9: 244.9, ICD10: E03.9 - Instructed patient on importance of taking on an empty stomach either first thing in the morning or at bedtime. Weight increasing - Behavioral and pharmacological intervention 6. Body mass index 40.0-44.9, adult (HCC) - ICD9: V85.41, ICD10: Z68.41 Stable - Behavioral and pharmacological intervention 7. 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 8. Mixed hyperlipidemia - ICD9: 272.2, ICD10: E78.2 - suboptimal control - Discussed the benefits of regular aerobic exercise and weight loss. 9. Prediabetes - ICD9: 790.29, ICD10: R73.03 10. Metabolic syndrome - ICD9: 277.7, ICD10: E88.81 Reviewed labs. Discussed insulin resistance in length. Recommended metformin. 11. Dietary counseling and surveillance - ICD9: V65.3, ICD10: Z71.3 Reviewed principles of energy metabolism, caloric intake and expenditure, and rationale for treatment program. Also reinforced need for reduced calorie, low fat diet and increased physical activity. Yen Abernathy MD Interval History: Ms. Germán Martinez, 56 yr. Old female with Class 3 obesity here today for non surgical weight loss management reports the following: Today patient voiced concerns over having salty type taste in mouth from metformin Also review of diet. Patient also lost a total of 29 pounds and has been taking a diuretic daily. Patient reports protein drink but was high in sugar and difficulty finishing the shake. Patient reports having 70 to 80 ounces of water a day but also exercise increasing her activity sleep she reports is good stress manageable. Patient reports more swelling in her legs anymore and no redness. She reports taking diuretic daily she does report feeling what she describes fatigued; she reports had been working in warm kitchen Weight loss since last vist: Patient reports 29 pounds. BMI 37.76 Anti-Obesity Medications >Phentermine: No uncontrolled HTN, No CVD Hx or hx of seizure disorder. No MAOI inhibitor use. No drug abuse hx. Crcl > 15. >Topiramate/zonisamide: No seizure or kidney stone hx. no hx of migraines, hx of poor sleep. noChild bearing age. >Qsymia: see above >Contrave: No contraindications. Could affect mood. No uncontrolled HTN or hx of seizure disorder. No MAOI inhibitor use. No opiate use. >Saxenda/Wegovy/Ozempic: Cost. Ins coverage? >Metformin: No contraindications or medication interactions. eGFR > 30. PAST MEDICAL HISTORY Diagnosis Date Cervical stenosis of spine states receives injections every 4 months Unspecified hypothyroidism Current Outpatient Medications Medication Sig Dispense Refill metFORMIN ER (GLUCOPHAGE XR) 500 mg 24 hr tablet Take 1 tablet by mouth daily with breakfast. 90 tablet 0 topiramate (TOPAMAX) 25 mg tablet Take 1 tablet by mouth once daily. 90 tablet 1 pregabalin (LYRICA) 25 mg capsule Take 1 capsule by mouth twice daily for 30 days. (Patient not taking: Reported on 01/20/2022) 60 capsule 0 leflunomide (ARAVA) 20 mg tablet Take 1 tablet by mouth once daily. 30 tablet 2 Cholecalciferol, Vitamin D3, (VITAMIN D) 25 mcg (1,000 unit) cap Take 1,000 Units by mouth once daily. amLODIPine (NORVASC) 10 mg tablet Take 10 mg by mouth once daily. simvastatin (ZOCOR) 10 mg tablet Take 10 mg by mouth daily at bedtime. meloxicam (MOBIC) 7.5 mg tablet Take 7.5 mg by mouth once daily. cyclobenzaprine (FLEXERIL) 10 mg tablet Take 5 mg by mouth at bedtime as needed. hydroCHLOROthiazide 12.5 mg capsule Take 12.5 mg by mouth once daily. lisinopril (ZESTRIL, PRINIVIL) 20 mg tablet Take 1 tablet by mouth once daily. levothyroxine (SYNTHROID) 75 mcg tablet Take 75 mcg by mouth once daily. 0 No current facility-administered medications for this visit. Review of Systems Constitutional: Positive for fatigue. HENT: Negative. Respiratory: Negative. Cardiovascular: Negative. Gastrointestinal: Negative. Endocrine: Negative. Genitourinary: Negative. Musculoskeletal: Negative. Skin: Negative. Allergic/Immunologic: Negative. Neurological: Negative. Hematological: Negative. Psychiatric/Behavioral: Negative. Ht 162.6 cm (5' 4 ) Wt 99.8 kg (220 lb) LMP (LMP Unknown) BMI 37.76 kg/m Patient report bp today 124/70 from last pcp appt. On 01-26-22 Physical Exam Constitutional: Appearance: Normal appearance. Neurological: Mental Status: She is alert. Limited PE due to Virtual visit; Assessment/Plan: Germán Martinez is a 56 year old female with Class obesity who presented today for follow up for supervised weight loss. Non surgical medical management: 1. Class 2 obesity due to excess calories without serious comorbidity in adult, unspecified BMI - ICD9: 278.00, ICD10: E66.09 (primary diagnosis) Weight decreasing - Behavioral and pharmacological intervention Counseled in length, recommended continuing low carb/low sugar diet; Continue managing maladaptive eating behaviors and adding resistance exercise. Continue exercise, add weights/ cardio exercise and increase NEAT. I have also reviewed the different therapeutic options available including phentermine, qsymia, contrave, belviq and saxenda, topiramate, metformin and effexor, bupropion. At this time best option is continue the metformin 500 mg xr daily; Topiramate 25 mg daily; Discussed with The patient pro/cons of these medications; Addressed patient concern for salt taste with medication, and educated should resolve. 2. Dietary counseling and surveillance - ICD9: V65.3, ICD10: Z71.3 Reviewed principles of energy metabolism, caloric intake and expenditure, and rationale for treatment program. Also reinforced need for reduced calorie, low fat diet and increased physical activity. 3. BMI 37.0-37.9, adult - ICD9: V85.37, ICD10: Z68.37 counseled in length ,recommended Low carb /low sugar diet --managing maladaptive eating behaviors and adding resistance exercise. Continue low carb diet, weights/cardio exercise and increase NEAT. Total weight loss 29 lbs/bmi 37.76 4. Primary hypertension - ICD9: 401.9, ICD10: I10 - good control - Recommended regular aerobic exercise. - Recommend home blood pressure monitoring, to bring results in on next visit - Goal of BP <130/80 - k level -diuretic 5. Mixed hyperlipidemia - ICD9: 272.2, ICD10: E78.2 Continue current medications 6. Hypothyroidism, unspecified type - ICD9: 244.9, ICD10: E03.9 Instructed patient on importance of taking on an empty stomach either first thing in the morning or at bedtime. Continue current medication; 7. DUNG (obstructive sleep apnea) - ICD9: 327.23, ICD10: G47.33 Continue using cpap 8. Malaise and fatigue [id number] Potassium level ordered; patient on diuretic; I spent a total of 30 minutes on the date of the service which included preparing to see the patient, [id number] patient care, completing clinical documentation, obtaining and/or reviewing separately obtained history, performing a medically appropriate examination, counseling and educating the patient/family/caregiver, ordering medications, tests, or procedures, communicating with other HCPs (not separately reported), independently interpreting results (not separately reported), communicating results to the patient/family/caregiver and care coordination (not separately reported). 5A's- Assess: I assessed behavioral health risk/factors affecting --- Asked about/assess behavioral health risk(s) and factors affecting choice of behavior change goals --- somewhat sedentry lifestyle ---?snacking ---Lack of exercise Advise: clear, specific, personalized behavior change advice. ---I gave very clear, specific, and personalized behavior change adviced, including information about personal health harms and benefits. Agree: Patient agrees with selected appropriate treatment goals and methods to change behavior Assist: Provided IBT w self-help, handouts, teaching skills and support Using behavior change techniques with self-help and Counseling in achieving Goals. Also discussed supplementing with adjunctive medical treatments when appropriate. Arrange: follow up scheduled, handouts given to patient. Follow up in 6 weeks Velma Shook APRN DNP documented in this encounter [facility] 01-28-2022 Miscellaneous Notes She can see Velma tomorrow. documented in this encounter [facility] 01-28-2022 Miscellaneous Notes Please call patient to schedule a follow up appointment with Dr. Conrad documented in this encounter [facility] 01-20-2022 Instructions Yen Abernathy MD - 01/20/2022 11:19 AM EDT TRYING TO LOSE WEIGHT? Your Body mass index is 41.88 kg/m . (Target BMI: 19-25) A person with a BMI between 25 and 29.9 is considered overweight A person with a BMI of 30 or greater is considered to be obese SETTING A WEIGHT LOSS GOAL: Last 5 Encounter Wt Readings: Date: Wt: 01/20/2022 110.7 kg (244 lb) 01/12/2022 109.8 kg (242 lb) 08/13/2021 113.4 kg (250 lb) 05/21/2021 113.4 kg (250 lb) 04/03/2021 112.9 kg (249 lb) Lose 10% of body weight over six months, about 1-2 lbs per week LIFESTYLE CHANGES The goals of lifestyle changes are to help you change your eating habits, become more active, and be more aware of how much you eat and exercise, helping you to make healthier choices. This can be broken down into three steps: 1. Triggers to eat Determining what triggers you to eat involves figuring out what foods you eat and where and when you eat. To figure out what triggers you to eat, keep a record for a few days of everything you eat, the places where you eat, how often you eat, and the emotions you were feeling when you ate. For some people, the trigger is related to a certain time of day or night. For others, the trigger is related to a certain place, like sitting at a desk working. 2. Eating You can change your eating habits by breaking the chain of events between the trigger for eating and eating itself. There are many ways to do this. For instance, you can: Limit where you eat to a few places (eg, dining room) Restrict the number of utensils (eg, only a fork) used for eating Drink a sip of water between each bite Chew your food a certain number of times Get up and stop eating every few minutes 3. What happens after you eat Rewarding yourself for good eating behaviors can help you to develop better habits. This is not a reward for weight loss; instead, it is a reward for changing unhealthy behaviors. Do not use food as a reward. Some people find money, clothing, or personal care (eg, a hair cut, manicure, or massage) to be effective rewards. Treat yourself immediately after making better eating choices to reinforce the value of the good behavior. You need to have clear behavior goals, and you must have a time frame for reaching your goals. Reward small changes along the way to your final goal. Other factors that contribute to successful weight loss Establish a luanne system Having a friend or family member available to provide support and reinforce good behavior is very helpful. The support person needs to understand your goals. Learn to be strong Learning to be strong when tempted by food is an important part of losing weight. As an example, you will need to learn how to say no and continue to say no when urged to eat at parties and social gatherings. Develop strategies for events before you go, such as eating before you go or taking low-calorie snacks and drinks with you. Develop a support system Having a support system is helpful when losing weight. This is why many [employer] groups are successful. Family support is also essential; if your family does not support your efforts to lose weight, this can slow your progress or even keep you from losing weight. Positive thinking People often have conversations with themselves in their head; these conversations can be positive or negative. If you eat a piece of cake that was not planned, you may respond by thinking, Oh, you stupid idiot, you've blown your diet! and as a result, you may eat more cake. A positive thought for the same event could be, Well, I ate cake when it was not on my plan. Now I should do something to get back on track. A positive approach is much more likely to be successful than a negative one. Reduce stress Although stress is a part of everyday life, it can trigger uncontrolled eating in some people. It is important to find a way to get through these difficult times without eating or by eating low-calorie food, like raw vegetables. It may be helpful to imagine a relaxing place that allows you to temporarily escape from stress. With deep breaths and closed eyes, you can imagine this relaxing place for a few minutes. Self-help programs Self-help programs like Weight Watchers , Overeaters Anonymous , and Take Off Pounds Sensibly (TOPS) work for some people. As with all weight loss programs, you are most likely to be successful with these plans if you make long-term changes in how you eat. CHOOSING A DIET A calorie is a unit of energy found in food. Your body needs calories to function. The goal of any diet is to burn up more calories than you eat. How quickly you lose weight depends upon several factors, such as your age, gender, and starting weight. Older people have a slower metabolism than young people, so they lose weight more slowly. Men lose more weight than women of similar height and weight when dieting because they use more energy. People who are extremely overweight lose weight more quickly than those who are only mildly overweight. How many calories do I need? You can estimate the number of calories you need per day based upon your current (or target) weight, gender, and activity level for women and for men. In general, it is best to choose foods that contain enough protein, carbohydrates, essential fatty acids, and vitamins. Try not to drink alcohol or drinks with added sugar, and most sweets (candy, cakes, cookies), since they rarely contain important nutrients. Portion-controlled diets One simple way to diet is to buy packaged foods, like frozen low-calorie meals or meal-replacement canned drinks. A typical meal plan for 1000 to 1500 calories per day may include: A meal-replacement drink or breakfast bar for breakfast A meal-replacement drink or a frozen low-calorie (250 to 350 calories) meal for lunch A frozen low-calorie meal or other prepackaged, calorie-controlled meal, along with extra vegetables for dinner Low-fat diet To reduce the amount of fat in your diet, you can: Eat low-fat foods. Low-fat foods are those that contain less than 30 percent of calories from fat. Fat is listed on the food facts label Count fat grams. For a 1500 calorie diet, this would mean about 45 g or fewer of fat per day. Low-carbohydrate diet Low- and wsco-wjs-olocajgfkgmf diets (eg, Atkins diet, [employer] diet) have become popular ways to lose weight quickly. With a ptnn-mvo-atqkdmztawrg diet, you eat between 0 and 60 grams of carbohydrates per day (a standard diet contains 200 to 300 grams of carbohydrates) With a low-carbohydrate diet, you eat between 60 and 130 grams of carbohydrates per day Carbohydrates are found in fruits, vegetables, and grains (including breads, rice, pasta, and cereal), alcoholic beverages, and in dairy products. Meat and fish do not contain carbohydrates. Side effects of mtno-oyf-bvgauewlswvb diets can include constipation, headache, bad breath, muscle cramps, diarrhea, and weakness. Mediterranean diet The term Mediterranean diet refers to a way of eating that is common in olive-growing regions around the [place]. Although there is some variation in Mediterranean diets, there are some similarities. Most Mediterranean diets include: A high level of monounsaturated fats (from olive or canola oil, walnuts, pecans, almonds) and a low level of saturated fats (from butter) A high amount of vegetables, fruits, legumes, and grains (7 to 10 servings of fruits and vegetables per day) A moderate amount of milk and dairy products, mostly in the form of cheese. Use low-fat dairy products (skim milk, fat-free yogurt, low-fat cheese). A relatively low amount of red meat and meat products. Substitute fish or poultry for red meat. For those who drink alcohol, a modest amount (mainly as red wine) may help to protect against cardiovascular disease. A modest amount is up to one (4 ounce) glass per day for women and up to two glasses per day for men. Which diet is best? No one diet is best for weight loss. Any diet will help you to lose weight if you stick with the diet. Therefore, it is important to choose a diet that includes foods you like. Fad diets Fad diets often promise quick weight loss (more than 1 to 2 pounds per week) and may claim that you do not need to exercise or give up favorite foods. Some fad diets cost a lot of money, because you have to pay for seminars or pills. Fad diets generally lack any scientific evidence that they are safe and effective, but instead rely on before and after photos or testimonials. Diets that sound too good to be true usually are. These plans are a waste of time and money and are not recommended. A doctor, nurse, or wood heel fitter machine can help you find a safe and effective way to lose weight and keep it off. Adapted from [facility] My opinion 3 hour Rule: -last meal /snack 3 hours before sleeping ,but mostly try to be done by 7 pm --eat Rich Breakfast, high in protein hard boiled eggs/protein drinks - At least 3 hours break between each meals ,except water --sleep 7 hours at night , that means going to bed early -- drink only water ( no soda or juices) /no Alcohol consumption --cut down on coffee consumption if consuming high amounts Website :You can visit to web site for low carb recipe information as well as visual guide to low carb food: Https://www.dietdoctor.com/ ( visual guide for low carb diet) Limit carb consumption to 80- 100 grams per day. Goals: formal exercise 2-5 x/week as tolerated, start with 10 mins/day to goal of 30 minutes ( -- for exercise, you should shoot for a goal of >150 min per week initially. Depending at what level you are starting, that may seem like an unachievable task. However, the best plan is to just begin to walk or bike or do another activity that you like and track your steps per day. You do not need to pay attention to the time, but you do need to try to increase your exercise every 3 weeks. Other strength exercises, using light weights or training bands may also be useful, especially when combined with regular aerobic exercise. Studies have shown that >200min per week is best to maintain weight loss, so that would be the overall end goal.) Have 3 meals a day-protein source with each meal (structured meal planning) Food journal daily and bring it to all appointments If you want you can REPLACE one of your meals with a liquid meal or frozen meal. This is easy to start and may help with your weight. 1. Liquid meal replacement (Boost, Ensure) 2. Frozen meal (Healthy Choice, Lean Cuisine - sodium under 650mg, can always add veggies to the meal) 3. Powdered protein (Premier Protein) or meal replacement (I like a plant based meal replacement called [employer] Nutrition - can mix w froz berries and almond milk) -- IN GENERAL - suggestions based on important of our sleep cycle called circadian rhythm and its influence on our gut microbiota and overall health tragetory 1) EAT MOST OF YOUR FOOD IN AM AND EARLY PM 2) NO EATING AT NIGHT 3) EXERCISE DURING DAY 4) BE CONSISTENT WITH MEAL STRUCTURE ie Meals at same time during the day. -- keep record of your food intake - it is easier for us to understand your eating habits and food preferences, looking into the amounts of protein, carbs, and fat in your diet. Good examples of apps to track calories are MyFITNESSPAL, LOSE IT. Some patient have found FOODUCATE to help with decisions around food, however choose apps that best suits you. Topiramate (toe pyre a mate) - Please start topiramate as discussed. Take one tablet (25mg) every night and increase to 2 tablets at night (50MG) after 2 weeks if there is no change in your appetite, cravings or weight. -- You can take it at night at first (because of potential sleepiness side effects), but earlier around dinner after you have started the medication for a few days. You also may be able to take it in the morning if easier. -- We may increase the dose to 3 tablets (75mg) a few weeks later if there is no change with 50mg and continue to increase the medication in this way (usually no more than 150mg). But it is best to contact me after 1 month to discuss continued increases of the medication. -- Please see the handout to review the potential side effects and to explain this further -Also discussed that when on topiramate , I would recommend using 2 different kind if control methods, Due to several anomaly( if female in reproductive age group) --no while on this medications --pt Agrees and verbalizes understanding. What are the common names? Topamax Why is this medication prescribed? Topiramate is an anti-epileptic medications which has been approved by the FDA for patients 10 years of age or older for treatment of seizures. However, topiramate also has other uses such as the treatment of migraines. It also causes decrease in appetite and weight loss. The mechanism of weight loss is thought to be through inhibition of mitochondrial enzymes involved in energy expenditure and metabolism. Topiramate may work by helping you feel less hungry, less driven to eat, more satisfied with less food. However while phentermine and topiramate in combination are approved by FDA for long-term treatment of obesity, topiramate as stand alone pharmacotherapy has not been approved for this purpose. Has been used in treatment of obesity as an off label, as discussed during your visit. What special precautions should I follow? --Recommended appropriate and consistent control method in women to prevent conception while taking topiramate.(recommended at least 2 methods of contraception as at times it can decrease the effectiveness of oral control pills) --(women in child bearing age ) I strongly recommend discontinue the use of medication prior to conception as the medication may be linked to anomalies and not safe to utilize during . Before having topiramate prescribed, tell your doctor and pharmacist: If you have allergies to any component of topiramate If you are , plan to become , are breast-feeding, or if you become while taking topiramate What are the warnings and precautions for this medication? Immediately discontinue the medicine and seek medical help if you have severe cognitive/neuropsychiatric adverse symptoms or eye symptoms. Cognitive/neuropsychiatric adverse events: symptoms may include confusion, psychomotor slowing, difficulty with concentration/attention, difficulty with memory, speech or language problems, particularily word-finding difficulties, somnolence or fatigue Acute myopia and secondary angle closure glaucoma, usually within 1 month of starting treatment: symptoms may include blurred vision, redness and/or pain in the eye Oligohydrosis (decrease sweating) and hyperthermia (elevation in body temperature) Increase in suicidal behavior or ideation Metabolic acidosis, non-gap hyperchloremic (decreased serum bicarbonate below normal levels) resulting in hyperventilation or fatigue Kidney stones Paresthesias (numbness or tingling in hands or feet) Ataxia Dizziness Increase in urination frequency Drug interactions. Use of monamine oxidase inhibitors (MAOI s), valproic acid, Caution use with dehydration or diarrheal illness, hepatic or renal impairment In case of emergency/overdose In case of overdose, call your local poison control center at or call local emergency services at [phone]. What other information should I know? Keep all appointments with your doctor and the laboratory. Do not let anyone else take your medication. Topiramate use needs to be monitored closely. Prescriptions may be refilled only a limited number of times. Keep a written list of all of your prescription and nonprescription (xdhy-mzy-dgclrcf) medicines, in addition to vitamins, minerals, or other dietary supplements. How should I monitor while on this medication? Your doctor will check your baseline kidney function and electrolytes prior to starting this medication, then periodically. Continue to improve your dietary and physical activity habits as the combination works best while on this medication. Start out by taking the medication at bedtime as it can cause fatigue and sleepiness. Be sure to eat regular meals. Less hunger does not make it appropriate to skip meals. Make sure to have an eye exam, including the pressure in your eyes (intra-ocular pressure), once a year. What should I do if I forget a dose? Skip the missed dose and continue your regular dosing schedule the next day. Do not take a double dose to make up for a missed one. Sources Pubmed Health: http://www.ncbi.nlm.nih.gov/pubmed health/SCO9982031/ Drugs.com http://www.drugs.com/pro/topiramat e.html - Rx metformin, risks and benefits discussed at length. The pt understands the potential side effects (including gastrointestinal problems) and is instructed to increase the dose as tolerated. TRYING TO LOSE WEIGHT? Your Body mass index is 41.88 kg/m . (Target BMI: 19-25) A person with a BMI between 25 and 29.9 is considered overweight A person with a BMI of 30 or greater is considered to be obese SETTING A WEIGHT LOSS GOAL: Last 5 Encounter Wt Readings: Date: Wt: 01/20/2022 110.7 kg (244 lb) 01/12/2022 109.8 kg (242 lb) 08/13/2021 113.4 kg (250 lb) 05/21/2021 113.4 kg (250 lb) 04/03/2021 112.9 kg (249 lb) Lose 10% of body weight over six months, about 1-2 lbs per week LIFESTYLE CHANGES The goals of lifestyle changes are to help you change your eating habits, become more active, and be more aware of how much you eat and exercise, helping you to make healthier choices. This can be broken down into three steps: 1. Triggers to eat Determining what triggers you to eat involves figuring out what foods you eat and where and when you eat. To figure out what triggers you to eat, keep a record for a few days of everything you eat, the places where you eat, how often you eat, and the emotions you were feeling when you ate. For some people, the trigger is related to a certain time of day or night. For others, the trigger is related to a certain place, like sitting at a desk working. 2. Eating You can change your eating habits by breaking the chain of events between the trigger for eating and eating itself. There are many ways to do this. For instance, you can: Limit where you eat to a few places (eg, dining room) Restrict the number of utensils (eg, only a fork) used for eating Drink a sip of water between each bite Chew your food a certain number of times Get up and stop eating every few minutes 3. What happens after you eat Rewarding yourself for good eating behaviors can help you to develop better habits. This is not a reward for weight loss; instead, it is a reward for changing unhealthy behaviors. Do not use food as a reward. Some people find money, clothing, or personal care (eg, a hair cut, manicure, or massage) to be effective rewards. Treat yourself immediately after making better eating choices to reinforce the value of the good behavior. You need to have clear behavior goals, and you must have a time frame for reaching your goals. Reward small changes along the way to your final goal. Other factors that contribute to successful weight loss Establish a luanne system Having a friend or family member available to provide support and reinforce good behavior is very helpful. The support person needs to understand your goals. Learn to be strong Learning to be strong when tempted by food is an important part of losing weight. As an example, you will need to learn how to say no and continue to say no when urged to eat at parties and social gatherings. Develop strategies for events before you go, such as eating before you go or taking low-calorie snacks and drinks with you. Develop a support system Having a support system is helpful when losing weight. This is why many commercial groups are successful. Family support is also essential; if your family does not support your efforts to lose weight, this can slow your progress or even keep you from losing weight. Positive thinking People often have conversations with themselves in their head; these conversations can be positive or negative. If you eat a piece of cake that was not planned, you may respond by thinking, Oh, you stupid idiot, you've blown your diet! and as a result, you may eat more cake. A positive thought for the same event could be, Well, I ate cake when it was not on my plan. Now I should do something to get back on track. A positive approach is much more likely to be successful than a negative one. Reduce stress Although stress is a part of everyday life, it can trigger uncontrolled eating in some people. It is important to find a way to get through these difficult times without eating or by eating low-calorie food, like raw vegetables. It may be helpful to imagine a relaxing place that allows you to temporarily escape from stress. With deep breaths and closed eyes, you can imagine this relaxing place for a few minutes. Self-help programs Self-help programs like Weight Watchers , Overeaters Anonymous , and Take Off Pounds Sensibly (TOPS) work for some people. As with all weight loss programs, you are most likely to be successful with these plans if you make long-term changes in how you eat. CHOOSING A DIET A calorie is a unit of energy found in food. Your body needs calories to function. The goal of any diet is to burn up more calories than you eat. How quickly you lose weight depends upon several factors, such as your age, gender, and starting weight. Older people have a slower metabolism than young people, so they lose weight more slowly. Men lose more weight than women of similar height and weight when dieting because they use more energy. People who are extremely overweight lose weight more quickly than those who are only mildly overweight. How many calories do I need? You can estimate the number of calories you need per day based upon your current (or target) weight, gender, and activity level for women and for men. In general, it is best to choose foods that contain enough protein, carbohydrates, essential fatty acids, and vitamins. Try not to drink alcohol or drinks with added sugar, and most sweets (candy, cakes, cookies), since they rarely contain important nutrients. Portion-controlled diets One simple way to diet is to buy packaged foods, like frozen low-calorie meals or meal-replacement canned drinks. A typical meal plan for 1000 to 1500 calories per day may include: A meal-replacement drink or breakfast bar for breakfast A meal-replacement drink or a frozen low-calorie (250 to 350 calories) meal for lunch A frozen low-calorie meal or other prepackaged, calorie-controlled meal, along with extra vegetables for dinner Low-fat diet To reduce the amount of fat in your diet, you can: Eat low-fat foods. Low-fat foods are those that contain less than 30 percent of calories from fat. Fat is listed on the food facts label Count fat grams. For a 1500 calorie diet, this would mean about 45 g or fewer of fat per day. Low-carbohydrate diet Low- and ufnb-bed-hwbjadjqzaja diets (eg, Atkins diet, [employer] diet) have become popular ways to lose weight quickly. With a mjpy-uij-aolsijroarhu diet, you eat between 0 and 60 grams of carbohydrates per day (a standard diet contains 200 to 300 grams of carbohydrates) With a low-carbohydrate diet, you eat between 60 and 130 grams of carbohydrates per day Carbohydrates are found in fruits, vegetables, and grains (including breads, rice, pasta, and cereal), alcoholic beverages, and in dairy products. Meat and fish do not contain carbohydrates. Side effects of ytvh-qid-uroosrezkyyy diets can include constipation, headache, bad breath, muscle cramps, diarrhea, and weakness. Mediterranean diet The term Mediterranean diet refers to a way of eating that is common in olive-growing regions around the [place]. Although there is some variation in Mediterranean diets, there are some similarities. Most Mediterranean diets include: A high level of monounsaturated fats (from olive or canola oil, walnuts, pecans, almonds) and a low level of saturated fats (from butter) A high amount of vegetables, fruits, legumes, and grains (7 to 10 servings of fruits and vegetables per day) A moderate amount of milk and dairy products, mostly in the form of cheese. Use low-fat dairy products (skim milk, fat-free yogurt, low-fat cheese). A relatively low amount of red meat and meat products. Substitute fish or poultry for red meat. For those who drink alcohol, a modest amount (mainly as red wine) may help to protect against cardiovascular disease. A modest amount is up to one (4 ounce) glass per day for women and up to two glasses per day for men. Which diet is best? No one diet is best for weight loss. Any diet will help you to lose weight if you stick with the diet. Therefore, it is important to choose a diet that includes foods you like. Fad diets Fad diets often promise quick weight loss (more than 1 to 2 pounds per week) and may claim that you do not need to exercise or give up favorite foods. Some fad diets cost a lot of money, because you have to pay for seminars or pills. Fad diets generally lack any scientific evidence that they are safe and effective, but instead rely on before and after photos or testimonials. Diets that sound too good to be true usually are. These plans are a waste of time and money and are not recommended. A doctor, nurse, or wood heel fitter machine can help you find a safe and effective way to lose weight and keep it off. Adapted from [facility] My opinion 3 hour Rule: -last meal /snack 3 hours before sleeping ,but mostly try to be done by 7 pm --eat Rich Breakfast, high in protein hard boiled eggs/protein drinks - At least 3 hours break between each meals ,except water --sleep 7 hours at night , that means going to bed early -- drink only water ( no soda or juices) /no Alcohol consumption --cut down on coffee consumption if consuming high amounts Website :You can visit to web site for low carb recipe information as well as visual guide to low carb food: Https://www.dietdoctor.nuMVC/ ( visual guide for low carb diet) Limit carb consumption to 80- 100 grams per day. Goals: formal exercise 2-5 x/week as tolerated, start with 10 mins/day to goal of 30 minutes ( -- for exercise, you should shoot for a goal of >150 min per week initially. Depending at what level you are starting, that may seem like an unachievable task. However, the best plan is to just begin to walk or bike or do another activity that you like and track your steps per day. You do not need to pay attention to the time, but you do need to try to increase your exercise every 3 weeks. Other strength exercises, using light weights or training bands may also be useful, especially when combined with regular aerobic exercise. Studies have shown that >200min per week is best to maintain weight loss, so that would be the overall end goal.) Have 3 meals a day-protein source with each meal (structured meal planning) Food journal daily and bring it to all appointments If you want you can REPLACE one of your meals with a liquid meal or frozen meal. This is easy to start and may help with your weight. 1. Liquid meal replacement (Boost, Ensure) 2. Frozen meal (Healthy Choice, Lean Cuisine - sodium under 650mg, can always add veggies to the meal) 3. Powdered protein (Premier Protein) or meal replacement (I like a plant based meal replacement called Healthy [employer] Nutrition - can mix w froz berries and almond milk) -- IN GENERAL - suggestions based on important of our sleep cycle called circadian rhythm and its influence on our gut microbiota and overall health tragetory 1) EAT MOST OF YOUR FOOD IN AM AND EARLY PM 2) NO EATING AT NIGHT 3) EXERCISE DURING DAY 4) BE CONSISTENT WITH MEAL STRUCTURE ie Meals at same time during the day. -- keep record of your food intake - it is easier for us to understand your eating habits and food preferences, looking into the amounts of protein, carbs, and fat in your diet. Good examples of apps to track calories are PernixDataPAL, LOSE IT. Some patient have found FOODUCATE to help with decisions around food, however choose apps that best suits you. - Rx metformin, risks and benefits discussed at length. The pt understands the potential side effects (including gastrointestinal problems) and is instructed to increase the dose as tolerated. Topiramate (toe pyre a mate) - Please start topiramate as discussed. Take one tablet (25mg) every night and increase to 2 tablets at night (50MG) after 2 weeks if there is no change in your appetite, cravings or weight. -- You can take it at night at first (because of potential sleepiness side effects), but earlier around dinner after you have started the medication for a few days. You also may be able to take it in the morning if easier. -- We may increase the dose to 3 tablets (75mg) a few weeks later if there is no change with 50mg and continue to increase the medication in this way (usually no more than 100mg). But it is best to contact me after 1 month to discuss continued increases of the medication. -- Please see the handout to review the potential side effects and to explain this further -Also discussed that when on topiramate , I would recommend using 2 different kind if control methods, Due to several anomaly( if female in reproductive age group) --no while on this medications --pt Agrees and verbalizes understanding. What are the common names? Topamax Why is this medication prescribed? Topiramate is an anti-epileptic medications which has been approved by the FDA for patients 10 years of age or older for treatment of seizures. However, topiramate also has other uses such as the treatment of migraines. It also causes decrease in appetite and weight loss. The mechanism of weight loss is thought to be through inhibition of mitochondrial enzymes involved in energy expenditure and metabolism. Topiramate may work by helping you feel less hungry, less driven to eat, more satisfied with less food. However while phentermine and topiramate in combination are approved by FDA for long-term treatment of obesity, topiramate as stand alone pharmacotherapy has not been approved for this purpose. Has been used in treatment of obesity as an off label, as discussed during your visit. What special precautions should I follow? --Recommended appropriate and consistent control method in women to prevent conception while taking topiramate.(recommended at least 2 methods of contraception as at times it can decrease the effectiveness of oral control pills) --(women in child bearing age ) I strongly recommend discontinue the use of medication prior to conception as the medication may be linked to anomalies and not safe to utilize during . Before having topiramate prescribed, tell your doctor and pharmacist: If you have allergies to any component of topiramate If you are , plan to become , are breast-feeding, or if you become while taking topiramate What are the warnings and precautions for this medication? Immediately discontinue the medicine and seek medical help if you have severe cognitive/neuropsychiatric adverse symptoms or eye symptoms. Cognitive/neuropsychiatric adverse events: symptoms may include confusion, psychomotor slowing, difficulty with concentration/attention, difficulty with memory, speech or language problems, particularily word-finding difficulties, somnolence or fatigue Acute myopia and secondary angle closure glaucoma, usually within 1 month of starting treatment: symptoms may include blurred vision, redness and/or pain in the eye Oligohydrosis (decrease sweating) and hyperthermia (elevation in body temperature) Increase in suicidal behavior or ideation Metabolic acidosis, non-gap hyperchloremic (decreased serum bicarbonate below normal levels) resulting in hyperventilation or fatigue Kidney stones Paresthesias (numbness or tingling in hands or feet) Ataxia Dizziness Increase in urination frequency Drug interactions. Use of monamine oxidase inhibitors (MAOI s), valproic acid, Caution use with dehydration or diarrheal illness, hepatic or renal impairment In case of emergency/overdose In case of overdose, call your local poison control center at or call local emergency services at [phone]. What other information should I know? Keep all appointments with your doctor and the laboratory. Do not let anyone else take your medication. Topiramate use needs to be monitored closely. Prescriptions may be refilled only a limited number of times. Keep a written list of all of your prescription and nonprescription (yaby-dfu-dnytfni) medicines, in addition to vitamins, minerals, or other dietary supplements. How should I monitor while on this medication? Your doctor will check your baseline kidney function and electrolytes prior to starting this medication, then periodically. Continue to improve your dietary and physical activity habits as the combination works best while on this medication. Start out by taking the medication at bedtime as it can cause fatigue and sleepiness. Be sure to eat regular meals. Less hunger does not make it appropriate to skip meals. Make sure to have an eye exam, including the pressure in your eyes (intra-ocular pressure), once a year. What should I do if I forget a dose? Skip the missed dose and continue your regular dosing schedule the next day. Do not take a double dose to make up for a missed one. Sources Pubmed Health: http://www.ncbi.nlm.nih.gov/pubmed health/JLH9691084/ Drugs.com http://www.drugs.com/pro/topiramat e.html documented in this encounter [facility] 01-20-2022 History of Present illness Narrative Images from the original note were not included. Yen Abernathy MD [facility] [address] [place] [address], [facility] [address] [place] [phone] SUBJECTIVE: Germán Martinez is a 56 year old female with PMX of DUNG/ Hypothyroidism /RA/ HTN /prediabetes who presents on January 20, 2022 for medical evaluation of Non-Surgical Metabolic Weight Management . Not interested in surgery Age at onset - early adult years. Rate of weight gain is described as gradual over years. Family history positive for obesity in the patient s patient. She considers ideal weight to be 150-160 . Weight at graduation from high school 115 lb . Weight when 145lbs Previous treatments include self-directed dieting. Lifestyle Factors: Diet: Do you think that you have a healthy diet? No. Overall characterization of present diet:unhealthy snacking and evening snacking./snacking on candies / How have you tried to lose weight in the past? Yes. What worked? Low carb diet . Exercise: Do you exercise ? No walk Are you able to walk up a flight of stairs or a small hill? Yes Patient's functional capacity is >4 METS. The composite complication rate of , unstable angina, KS, DVT, PE, renal failure, and stroke occurred in 16.6% of severely obese patients whose peak oxygen consumption was < 15.8 mL/kg/min but in only 2.8% of those whose cardiorespiratory fitness was >/= 15.8 mL/kg/min. By convention, 1 MET is considered equivalent to the consumption of 3.5 ml O2 kg-1 min-1 (or 3.5 ml of oxygen per kilogram of body mass per minute) and is roughly equivalent to the expenditure of 1 kcal per kilogram of body weight per hour. Sleep: Duration: > 6 hours:Yes Sleep apnea screen: If patient has been diagnosed with sleep apnea, has there been significant weight gain and are there any SDB symptoms on the current CPAP/BIPAP pressure setting: Yes. Routine Breakfast Fasting route Stated eating 10 : eggs with hooker and sausages with whole grain toast and honey and fruits Snacks : carrots and cauliflower /green tea Lunch:/dinner meat / veggies Snacking has stopped Bedtime 10- 6 Chest pain, SOB, or KATE: No Stress test: no History of eating disorders: negative Associated medical conditions: hypertension Associated medications: none Cardiovascular risk factors: hyperlipidemia Current Outpatient Medications on File Prior to Visit Medication Sig leflunomide (ARAVA) 20 mg tablet Take 1 tablet by mouth once daily. Cholecalciferol, Vitamin D3, (VITAMIN D) 25 mcg (1,000 unit) cap Take 1,000 Units by mouth once daily. amLODIPine (NORVASC) 10 mg tablet Take 10 mg by mouth once daily. simvastatin (ZOCOR) 10 mg tablet Take 10 mg by mouth daily at bedtime. meloxicam (MOBIC) 7.5 mg tablet Take 7.5 mg by mouth once daily. cyclobenzaprine (FLEXERIL) 10 mg tablet Take 5 mg by mouth at bedtime as needed. hydroCHLOROthiazide 12.5 mg capsule Take 12.5 mg by mouth once daily. lisinopril (ZESTRIL, PRINIVIL) 20 mg tablet Take 1 tablet by mouth once daily. levothyroxine (SYNTHROID) 75 mcg tablet Take 75 mcg by mouth once daily. pregabalin (LYRICA) 25 mg capsule Take 1 capsule by mouth twice daily for 30 days. (Patient not taking: Reported on 01/20/2022) No current facility-administered medications on file prior to visit. ALLERGIES Allergen Reactions Codeine Vomiting Duloxetine Other: See Comments Hydroxychloroquine Rash Tapazole [[place]* Rash Vicodin [Hydrocodon* Itching PAST MEDICAL HISTORY Diagnosis Date Cervical stenosis of spine states receives injections every 4 months Unspecified hypothyroidism PAST SURGICAL HISTORY Procedure Laterality Date ARTHRP INTERPOS INTERCARPAL/METACARPAL JOINTS Left 06/18/2021 Left thumb CMC arthroplasy with LRTI and percutaneous pinning left thumb MCPJ CONIZATION CERVIX W/WO D&C RPR ELTRD EXC 09/20/1997 LEEP-Cervix SLING OPER STRES INCONTINENCE 09/20/2001 TONSILLECTOMY PRIMARY/SECONDARY <AGE 12 09/20/1969 Tonsillectomy Any problems with anesthesia with the above surgeries: NA FAMILY HISTORY Problem Relation Age of Onset Diabetes Mother Hypertension Mother Stroke Paternal Grandfather Diabetes Maternal Grandmother Social History Tobacco Use Smoking status: Former Smoker Packs/day: 0.25 Years: 25.00 Pack years: 6.25 Types: Cigarettes Smokeless tobacco: Never Used Tobacco comment: 2-3 packs a week Vaping Use Vaping Use: Never used Substance Use Topics Alcohol use: Yes Comment: very rare Drug use: No Review of Systems Constitutional: Positive for malaise/fatigue. HENT: Negative for congestion and tinnitus. Eyes: Negative for blurred vision. No glaucoma Respiratory: Negative for shortness of breath. Cardiovascular: Negative for palpitations, orthopnea and leg swelling. Gastrointestinal: Positive for heartburn. Negative for nausea and vomiting. Fatty liver Genitourinary: Negative for dysuria and frequency. No hx of kidney stones Musculoskeletal: Positive for back pain and joint pain. Neurological: Negative for weakness. Psychiatric/Behavioral: The patient has insomnia. OBJECTIVE: BP 142/80 Pulse 88 Resp 18 Ht 162.6 cm (5' 4 ) Wt 110.7 kg (244 lb) LMP (LMP Unknown) SpO2 99% BMI 41.88 kg/m BMI = Body mass index is 41.88 kg/m . Waist circumference 49 Neck circumference 17 Physical Exam Constitutional:. --no issues with communication during telephone visit and demonstrates understanding via appropriate interaction, verbalizing understanding ans she consented for this visit visit telephone encounter HEENT: Normocephalic and atraumatic. Eyes: Conjunctiva appear normal. No scleral icterus. Hearing: Is grossly intact. Neck: Range of motion appears normal. Thyroid: appears symmetric and not enlarged. Pulmonary/Chest: Effort normal. Psychiatric: Mood, memory, affect and judgment normal. Neurological: alert and oriented to person, place, and time. ASSESSMENT/PLAN: 1. Class 3 severe obesity with serious comorbidity in adult, unspecified BMI, unspecified obesity type (HCC) - ICD9: 278.01, ICD10: E66.01 (primary diagnosis) Weight increasing - Behavioral and pharmacological intervention -- counseled in length ,recommended Low carb /low sugar diet --managing maladaptive eating behaviors and adding resistance exercise. Continue low carb diet, weights/cardio exercise and increase NEAT. -I have also reviewed he possibility of using weight loss medications in an effort to reduce her appetite. I have reviewed the different therapeutic options available including phentermine, Qsymia, Contrave, Belviq and Saxenda,Topiramate, Metformin, Bupropion We have also reviewed the possibility of using on her medications such as Effexor or metformin which has been also associated with weight loss. I reviewed with patient that she. We agreed that trying Topiramate and Metformin could be her best option at this point. I reviewed with the patient pros and cons of taking this medication. 2. Primary hypertension - ICD9: 401.9, ICD10: I10 - suboptimal control --wt Loss may help with blood pressure as well. --Recommended to discuss this with her primary care. - Continue current medication(s) - Recommended regular aerobic exercise. - Recommend home blood pressure monitoring, to bring results in on next visit - Goal of BP <130/80 3. Rheumatoid arthritis involving multiple sites, unspecified whether rheumatoid factor present (HCC) - ICD9: 714.0, ICD10: M06.9 -Pain can be a limiting factor for increased physical activities. 4. Obstructive sleep apnea syndrome - ICD9: 327.23, ICD10: G47.33 Encouraged to use his CPAP regularly 5. Acquired hypothyroidism - ICD9: 244.9, ICD10: E03.9 - Instructed patient on importance of taking on an empty stomach either first thing in the morning or at bedtime. Weight increasing - Behavioral and pharmacological intervention 6. Body mass index 40.0-44.9, adult (HCC) - ICD9: V85.41, ICD10: Z68.41 Stable - Behavioral and pharmacological intervention 7. 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 8. Mixed hyperlipidemia - ICD9: 272.2, ICD10: E78.2 - suboptimal control - Discussed the benefits of regular aerobic exercise and weight loss. 9. Prediabetes - ICD9: 790.29, ICD10: R73.03 10. Metabolic syndrome - ICD9: 277.7, ICD10: E88.81 Reviewed labs. Discussed insulin resistance in length. Recommended metformin. 11. Dietary counseling and surveillance - ICD9: V65.3, ICD10: Z71.3 Reviewed principles of energy metabolism, caloric intake and expenditure, and rationale for treatment program. Also reinforced need for reduced calorie, low fat diet and increased physical activity. Yen Abernathy MD Reviewed principles of energy metabolism, caloric intake and expenditure, and rationale for treatment program. Also reinforced need for reduced calorie, low fat diet and increased physical activity. Yen Abernathy MD History Review: I have reviewed and modified as needed, the following during this visit: Allergies, Past Medical History, Past Surgical History, Past Family History, Past Social History. I spent a total of 68 minutes on the date of the service which included preparing to see the patient, [id number] patient care, completing clinical documentation, obtaining and/or reviewing separately obtained history, performing a medically appropriate examination, counseling and educating the patient/family/caregiver, ordering medications, tests, or procedures, communicating with other HCPs (not separately reported), independently interpreting results (not separately reported), communicating results to the patient/family/caregiver and care coordination (not separately reported). Counseling Visit 45minutes for preventive counseling/IBT Screening for obesity completed during initial plan of care. Patient was competent and alert at the time that counseling was provided. 5a's reviewed: Assess- I assessed behavioral health risk/factors affecting --- Asked about/assess behavioral health risk(s) and factors affecting choice of behavior change goals --- somewhat sedentry lifestyle lifestyle --Lack of exercise Has been adding increased walking --Insulin resistance and metabolic syndrome --Discussed insulin resistance. Advise: clear, specific, personalized behavior change advice. -I gave very clear, specific, and personalized behavior change adviced, including information about personal health harms and benefits. Agree: Patient agrees with selected appropriate treatment goals and methods to change behavior Assist:provided IBT w self-help, handouts, teaching skills and support Using behavior change techniques with self-help and Counseling in achieving Goals. Also discussed supplementing with adjunctive medical treatments when appropriate. Arrange- follow up scheduled, Handouts given to patient My opinion -- 3 hour Rule -last meal /snack 3 hours before sleeping ,try to be done by 7 pm --eat Rich Breakfast - At Least 3 hours break between each meals ,except water --sleep 7 hours at night , that means going to bed early -- drink only water ( no soda or juices) /no Alcohol consumption --cut down on coffee consumption if consuming high amounts Website :You can visit to web site for low carb recipe information as well as visual guide to low carb food: [employer]nuMVC Limit carb consumption to 80- 100 grams per day. Goals: formal exercise 2-5 x/week as tolerated, start with 10 mins/day to goal of 30 minutes Have 3 meals a day-protein source with each meal (structured meal planning) Food journal daily and bring it to all appointments -- IN GENERAL - suggestions based on important of our sleep cycle called circadian rhythm and its influence on our gut microbiota and overall health tragetory 1) EAT MOST OF YOUR FOOD IN AM AND EARLY PM 2) NO EATING AT NIGHT 3) EXERCISE DURING DAY 4) BE CONSISTENT WITH MEAL STRUCTURE ie Meals at same time during the day. -- keep record of your food intake - it is easier for us to understand your eating habits and food preferences, looking into the amounts of protein, carbs, and fat in your diet. Good examples of apps to track calories are PernixDataPAL, LOSE IT. Some patient have found FOODUCATE to help with decisions around food, however choose apps that best suits you. -- for exercise, you should shoot for a goal of >150 min per week initially. Depending at what level you are starting, that may seem like an unachievable task. However, the best plan is to just begin to walk or bike or do another activity that you like and track your steps per day. You do not need to pay attention to the time, but you do need to try to increase your exercise every 3 weeks. Other strength exercises, using light weights or training bands may also be useful, especially when combined with regular aerobic exercise. Studies have shown that >200min per week is best to maintain weight loss, so that would be the overall end goal. -- One option we discussed is to REPLACE one of your meals with a liquid meal or frozen meal. This is easy to start and may help with your weight. 1. Liquid meal replacement (Boost, Ensure) 2. Frozen meal (Healthy Choice, Lean Cuisine - sodium under 650mg, can always add veggies to the meal) 3. Powdered protein (Premier Protein) or meal replacement (I like a plant based meal replacement called adRisep Nutrition - can mix w froz berries and almond milk) This note was partially generated using Zync[employer] voice recognition system, and there may be some incorrect words, spellings, and punctuation that were not noted in checking the note before saving documented in this encounter [facility] 01-20-2022 Nurse Note Neck 17 Waist 49 documented in this encounter [facility] 01-02-2022 Miscellaneous Notes The following approved medication requests have been transmitted electronically. Signed Prescriptions Disp Refills pregabalin (LYRICA) 25 mg capsule 60 capsule 0 Sig: Take 1 capsule by mouth twice daily for 30 days. HAYDEE Class: C-V KASEY: No Authorizing Provider: VIOLET FLOYD PA-C documented in this encounter [facility] 09-02-2021 Note HNO ID: [id number] Author: Tea Andujar OT/L Service: ? Author Type: Occupational Therapist Type: Progress Notes Filed: 09/02/2021 12:31 PM Note Text: Episode Visit Count: 5 Therapist That Will Oversee The Plan Of Care: kenia Start of Care Date: 06/30/21 Onset Date: 06/30/18 Plan of Care Certification Date: 06/30/21 Next Certification Due Date: 08/29/21 [facility] OCCUPATIONAL THERAPY DISCONTINUANCE OF CARE PLAN OF CARE UPDATE: Assessment: Germán Martinez is discontinued from Occupational Therapy services due to goal achievement and maximal benefit.. Patient was seen for 5 visits from Start of Care Date: 06/30/21 to 09/02/2021 and treatment included: Therapeutic exercise, Self-half-way management, Orthotics management and training, Modalities and Custom orthosis fabrication. Patient will report a good understanding of diagnosis and OT recommendations for progression of program. PROGRESSING 08/05, MET Patient will demonstrate independence with ongoing home recommendations/exercise program throughout therapy plan of care.PROGRESSING 08/05 MET Patient will report a decrease in pain in Left wrist to 1/10 with basic self-care tasks, home management tasks and leisure / recreation skills.PROGRESSING 08/05 MET Patient will increase AROM of Left wrist and thumb to WFL in order to be able to improve function for basic self-care tasks, home management tasks and leisure / recreation skills. Patient will independently demonstrate correct application of CUSTOM orthosis and verbalize understanding of proper wear/care. PROGRESSING 08/05 MET Patient will report a good understanding of edema control, scar / wound management throughout therapy plan of care to promote non-adherent / non-tender soft tissue.PROGRESSING 08/05 MET Patient will demonstrate decreased edema compared to initial testing measurements. PROGRESSING 08/05 MET SUBJECTIVE: Pt reporting she still has some numbness but it is improving, no really difficulty with daily tasks Pain: Pain Pain Level: 0 (up to a 3 by evening) PROMIS Scales Higher is Better 08/10/2021 08/12/2021 08/27/2021 Phys Func - Score - - 46 (within normal limits) Phys Func - Percentile - - 34 % Social Roles - Score - 45 (within normal limits) - Social Role - Percentile - 31 % - GH Physical - Score - - 44.9 (Good) GH Physical - Percentile - - 31 % GH Mental - Score - - 59 (Excellent) GH Mental - Percentile - - 82 % Self-Eff Symptom - Score 42 (Average) - - Self-Eff Symptom - Percentile 21 % - - T-scores: mean of general population = 50. 5 points is clinically meaningfully difference Percentiles provide an indication of how the patient's score ranks in relation to the general population. Higher percentile rankings indicate better function/quality of life. 50th percentile is the average of the general population and indicates half of respondents had a worse score. Lower is Better 08/27/2021 Fatigue - Score 45 (within normal limits) Fatigue - Percentile 69 % T-scores: mean of general population = 50. 5 points is clinically meaningfully difference Percentiles provide an indication of how the patient's score ranks in relation to the general population. Higher percentile rankings indicate better function/quality of life. 50th percentile is the average of the general population and indicates half of respondents had a worse score. OBJECTIVE MEASURES WITH LEVEL OF FUNCTION: Hand Skin / Wound: Scar Scar: Non-tender Edema Description: Mild Edema Measurements: Wrist (DWC) (cm) L Wrist (DWC) (cm): 18.2 L DPC (cm): 19.2 Wrist AROM: Left Limitation Thumb AROM: Left Limitation Strength: Cleat Layer Position 2;Pinch Meter Sensation: Reports tingling or numbness (scores normal with SW) Hand Strength R Cleat Layer Position 2 (lbs): 53 lbs L Cleat Layer Position 2 (lbs): 31 lbs R Lateral Pinch (lbs): 18 lbs R Tripod/ 3 Jaw Garth (lbs): 15 lbs R Tip Pinch (lbs): 14 lbs L Lateral Pinch (lbs): 9 lbs L Tripod/ 3 Jaw Garth (lbs): 7 lbs L Tip Pinch (lbs): 6.5 lbs UE AROM L Wrist Extension: 60 Degrees L Wrist Flexion: 70 Degrees L Wrist Radial Deviation: 30 Degrees L Wrist Ulnar Deviation: 30 Degrees Thumb AROM: Left Limitation Hand AROM L Thumb MP Flexion : 32 Degrees L Thumb IP Flexion : 42 Degrees L Thumb Radial Abduction: 60 Degrees L Thumb Palmar Abduction: 55 Degrees TREATMENT: Therapeutic Exercise: 1: AROM wrist and hand while in fluido therapy 2: tendon gliding and isolated blocking 3: medium soft putty winemaker digit ext roll, digit flexion tridpod pinch and thumb flex ext 4: with medium soft putty lsateral pinch and thumb adduction 5: educated in continuing 6: objective measurements take n and recorded 7: educated on resuming normal activity and progression of HEP Skilled Intervention: Patient was educated in proper exercise technique and purpose for exercises. Skilled judgment was (more content not included)... [facility] 08-28-2021 Note HNO ID: [id number] Author: Tea Andujar OT/L Service: ? Author Type: Occupational Therapist Type: Progress Notes Filed: 08/28/2021 1:53 PM Note Text: Episode Visit Count: 4 Therapist That Will Oversee The Plan Of Care: kenia Start of Care Date: 06/30/21 Onset Date: 06/30/18 Plan of Care Certification Date: 06/30/21 Next Certification Due Date: 08/29/21 REHABILITATION AND SPORTS THERAPY OCCUPATIONAL THERAPY TREATMENT NOTE ASSESSMENT: Germán Martinez demonstrated difficulty with stiffness. The patient will continue to benefit from continued skilled occupational therapy for exercises modalities PLAN FOR NEXT VISIT: [place] anticipate discharge SUBJECTIVE: Pt reporting she has some stiffness and still has numbness, but she is able to tolerate shirts and textures on her hand Pain: Pain Pain Level: 0 OBJECTIVE MEASURES WITH LEVEL OF FUNCTION: TREATMENT: Therapeutic Exercise: 1: AROM wrist and hand while in fluido therapy 2: tendon gliding and isolated blocking 3: with soft putty lateral pinch adduction 4: with 1# weight wrist flex wrist ext dev and sup pro 5: issued dycem for scar management instructed in use for scar management Skilled Intervention: Patient was educated in proper exercise technique and purpose for exercises. Skilled judgment was provided in selection of appropriate interventions. Billing Therapeutic Exercise Treatment Minutes: 40 Tea Andujar OT/Abiel [facility] 08-21-2021 Note HNO ID: [id number] Author: Tea Andujar OT/Abiel Service: ? Author Type: Occupational Therapist Type: Progress Notes Filed: 08/21/2021 1:51 PM Note Text: Episode Visit Count: 3 Therapist That Will Oversee The Plan Of Care: kenia Start of Care Date: 06/30/21 Onset Date: 06/30/18 Plan of Care Certification Date: 06/30/21 Next Certification Due Date: 08/29/21 Patient Identified by Name and Date of : Yes REHABILITATION AND SPORTS THERAPY OCCUPATIONAL THERAPY TREATMENT NOTE ASSESSMENT: Germán Martinez demonstrated difficulty with strength she has reporting doing much better. The patient will continue to benefit from continued skilled occupational therapy for exercises education PLAN FOR NEXT VISIT: additional putty SUBJECTIVE: left CMC LRTI 06/18/21 reports the splint has helped especially with tasks such as grovcery shopping reporting overall hand has improved Pt reports her hand and wrist feel much better Pain: OBJECTIVE MEASURES WITH LEVEL OF FUNCTION: TREATMENT: Therapeutic Exercise: 1: AROM wrist and hand while in fluido therapy 2: tendon gliding and isolated blocking 3: soft putty winemaker digit extension roll, digit flexion tripod pinch 4: with 1# weight wrist flex wrist ext dev and sup pro 5: issued silicone instructed in wear schedule and precautions Skilled Intervention: Patient was educated in proper exercise technique and purpose for exercises. Billing Therapeutic Exercise Treatment Minutes: 40 Tea Andujar OT/Abiel [facility] 08-13-2021 History of Present illness Narrative Radiology Service Progress Note PATIENT NAME: Germán Martinez DATE OF SERVICE: August 13, 2021 TIME: 9:00 AM PATIENT IDENTITY VERIFICATION COMPLETED USING TWO (2) IDENTIFIERS: Name and Date of confirmed by patient verbally. FALL SCREENING: Has the patient had 2 falls in the last year or 1 fall with injury or currently using an Ambulatory Assistive Device (Walker, Cane, Wheelchair, Crutches, etc.)? No PATIENT GENDER DATA: Female. status: : No status: NO. PATIENT RELEVANT IMPLANT DATA REVIEWED: Not Applicable RADIOLOGY DEPARTMENT: General X-ray: Exam(s) Completed: Lower Extremity X-Ray(s): Knee, AP / Lat / Tunne / Merchant Right and Wt. Bearing PERIPHERAL IV DATA: Not applicable SIGNED BY: RT David(R) August 13, 2021 9:00 AM documented in this encounter [facility] 08-12-2021 Note HNO ID: [id number] Author: Tea Andujar OT/Abiel Service: ? Author Type: Occupational Therapist Type: Progress Notes Filed: 08/12/2021 8:44 AM Note Text: Episode Visit Count: 2 Therapist That Will Oversee The Plan Of Care: kenia Start of Care Date: 06/30/21 Onset Date: 06/30/18 Plan of Care Certification Date: 06/30/21 Next Certification Due Date: 08/29/21 Patient Identified by Name and Date of : Yes REHABILITATION AND SPORTS THERAPY OCCUPATIONAL THERAPY TREATMENT NOTE ASSESSMENT: Germán Martinez demonstrated difficulty with strength tingling and functional use of hand3. The patient will continue to benefit from continued skilled occupational therapy for education exercises and modalities PLAN FOR NEXT VISIT: weight and putty exercises SUBJECTIVE: left CMC LRTI 06/18/21 reports the splint has helped especially with tasks such as grovcery shopping reporting overall hand has improved Pain: Pain Pain Level: 3 Pain Location: Wrist - Left;Hand - Left OBJECTIVE MEASURES WITH LEVEL OF FUNCTION: TREATMENT: Therapeutic Exercise: 1: AROM wrist and hand while in fluido therapy 2: tendon gliding and isolated blocking 3: soft sponge winemaker manipulated and roll and berry picker machine operator 4: thumb flex ext opposition and thumb flex ext 5: issued sized c compression sleeve and coban 6: sponge pieces berry picker machine operator and set down 7: scar and retrograde massage Skilled Intervention: Patient was educated in proper exercise technique and purpose for exercises. Skilled judgment was provided in selection of appropriate interventions. Billing Therapeutic Exercise Treatment Minutes: 44 Tea Andujar OT/Abiel [facility] 08-05-2021 Note HNO ID: [id number] Author: Tea Andujar OT/Abiel Service: ? Author Type: Occupational Therapist Type: Progress Notes Filed: 08/05/2021 3:31 PM Note Text: Episode Visit Count: 1 Therapist That Will Oversee The Plan Of Care: kenia Start of Care Date: 06/30/21 Onset Date: 06/30/18 Plan of Care Certification Date: 06/30/21 Next Certification Due Date: 08/29/21 Patient Identified by Name and Date of : Yes REHABILITATION AND SPORTS THERAPY OCCUPATIONAL THERAPY PROGRESS REPORT PLAN OF CARE UPDATE: Assessment: Germán Martinez exhibits difficulty with hypersensitivity, edema and decreased strength . She continues to be limited with weight bearing, gripping, pinching, pulling, pushing and carrying. She is progressing as expected towards her therapy goals as demonstrated by: home exercise program compliance and documented subjective information on progress. She will benefit from continued skilled therapy requiring exercises education modalities in order to improve functional use of hand. Functional gains: Improved range of motion Patient will report a good understanding of diagnosis and OT recommendations for progression of program. PROGRESSING 08/05 Patient will demonstrate independence with ongoing home recommendations/exercise program throughout therapy plan of care.PROGRESSING 08/05 Patient will report a decrease in pain in Left wrist to 1/10 with basic self-care tasks, home management tasks and leisure / recreation skills.PROGRESSING 08/05 Patient will increase AROM of Left wrist and thumb to WFL in order to be able to improve function for basic self-care tasks, home management tasks and leisure / recreation skills. Patient will independently demonstrate correct application of CUSTOM orthosis and verbalize understanding of proper wear/care. PROGRESSING 08/05 Patient will report a good understanding of edema control, scar / wound management throughout therapy plan of care to promote non-adherent / non-tender soft tissue.PROGRESSING 08/05 Patient will demonstrate decreased edema compared to initial testing measurements. 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 5 points is clinically meaningfully difference Percentiles provide an indication of how the patient's score ranks in relation to the general population. Higher percentile rankings indicate better function/quality of life. 50th percentile is the average of the general population and indicates half of respondents had a worse score. T-scores: mean of general population = 50. 5 points is clinically meaningfully difference Percentiles provide an indication of how the patient's score ranks in relation to the general population. Higher percentile rankings indicate better function/quality of life. 50th percentile is the average of the general population and indicates half of respondents had a worse score. OBJECTIVE MEASURES WITH LEVEL OF FUNCTION: Hand Skin / Wound: Scar Scar: Moderate adherance Edema Location: left hand Edema Description: Mild Left Hand AROM: WFL UE AROM L Wrist Extension: 55 Degrees L Wrist Flexion: 70 Degrees L Wrist Radial Deviation: 25 Degrees L Wrist Ulnar Deviation: 20 Degrees Left Hand AROM: WFL Hand AROM L Thumb MP Flexion : 40 Degrees L Thumb IP Flexion : 47 Degrees L Thumb Radial Abduction: 55 Degrees L Thumb Palmar Abduction: 55 Degrees TREATMENT: Therapeutic Exercise: 1: tendon gliding 2: digit adduction abduction 3: weight bearing 4: thumb flex ext opposition and thumb flex ext 5: fabricated hand based thumb spica splint instructed in wear schedule and precautions 6: instructed in scar massage using lotion and no lotion 7: isolated blocking 8: instructed in use of contrast bath Skilled Intervention: Patient was educated in proper exercise technique and purpose for exercises. Correct performance of therapeutic exercises was facilitated with verbal cuing. Custom orthosis: L 3913 HFO w/out joints (short opponens, all CMC designs, C-bar, hand portillo, hand gutter, hand trigger, anti-claw) Custom orthosis to provide Pt practiced orthosis application, donning on/off while under OT's supervision.. Patient was instructed in care of orthosis and wearing schedule Protection only outdoors / heavy use. and As needed (more content not included)... [facility] 06-30-2021 Note HNO ID: [id number] Author: Mayte Schultz, OT/L Service: ? Author Type: Occupational Therapist Type: Progress Notes Filed: 06/30/2021 6:30 PM Note Text: Episode Visit Count: 1 Therapist That Will Oversee The Plan Of Care: kenia Start of Care Date: 06/30/21 Onset Date: 06/30/18 Plan of Care Certification Date: 06/30/21 Next Certification Due Date: 08/29/21 Patient Identified by Name and Date of : Yes [facility] REHABILITATION AND SPORTS THERAPY OCCUPATIONAL THERAPY EVALUATION PLAN OF CARE: Assessment: Germán Martinez presents with the diagnosis of left CMC with LRTI. She presents with impairments of ROM, edema, pain,scar, lifting, grasping, pinching, cooking, bimanual activities. PROMIS? (Patient-Reported Outcomes Measurement Information System) scores were reviewed and physical function domain identified as a rehabilitation concern. She may benefit from skilled occupational therapy services for exercises, splinting, modalities, education to improve *functional use of left hand for ADLs and hobbies Prognosis: Good Good due to: current objective clinical presentation Goals for Episode of Care created on 06/30/21 through 09/19/21 Patient will report a good understanding of diagnosis and OT recommendations for progression of program. Patient will demonstrate independence with ongoing home recommendations/exercise program throughout therapy plan of care. Patient will report a decrease in pain in Left wrist to 1/10 with basic self-care tasks, home management tasks and leisure / recreation skills. Patient will increase AROM of Left wrist and thumb to WFL in order to be able to improve function for basic self-care tasks, home management tasks and leisure / recreation skills. Patient will independently demonstrate correct application of CUSTOM orthosis and verbalize understanding of proper wear/care. Patient will report a good understanding of edema control, scar / wound management throughout therapy plan of care to promote non-adherent / non-tender soft tissue. Patient will demonstrate decreased edema compared to initial testing measurements. Patient Goals: regain functional pain free use of lef thand Planned Interventions, Frequency, and Duration: Current Frequency: 1x/week Duration: 12 weeks Total Number of Visits Planned: 12 Planned Treatment Interventions: Custom orthosis fabrication;Therapeutic exercise (57332);Self-half-way management (76070);Orthotics management and training (58947,74837);Patient/Family/Careg iver Education;Fluidotherapy (70753) PLAN FOR NEXT VISIT: check fit of splint due to edema reduction, progress ROM of wrist, thumb as allowed, scar mangement Patient demonstrates good understanding of plan of care and treatment. The above goals and plan of care were discussed and agreed upon by patient/family. SUBJECTIVE: Germán Martinez is a 56 year old female seen today for left CMC LRTI 06/18/21 Functional Limitations: lifting;pulling;twisting;pinching; gripping;weight bearing;cooking;cleaning Prior Level of Function: Independent without limitations Patient Goals: regain functional pain free use of lef thand Intake Information: Prescription present Previous Treatment: Surgery? 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 5 points is clinically meaningfully difference Percentiles provide an indication of how the patient's score ranks in relation to the general population. Higher percentile rankings indicate better function/quality of life. 50th percentile is the average of the general population and indicates half of respondents had a worse score. T-scores: mean of general population = 50. 5 points is clinically meaningfully difference Percentiles provide an indication of how the patient's score ranks in relation to the general population. Higher percentile rankings indicate better function/quality of life. 50th percentile is the average of the general population and indicates half of respondents had a worse s (more content not included)... [facility] documented as of this encounter (statuses as of 12/22/2021) [facility]21 History of Past illness Narrative* Problem Noted Date Resolved Date Pain in left wrist 06/30/2021 06/30/2021 documented as of this encounter (statuses as of 01/02/2022) [facility] History of Past illness Narrative* Problem Noted Date Resolved Date Pain in left wrist 06/30/2021 06/30/2021 documented as of this encounter (statuses as of 01/20/2022) [facility] History of Past illness Narrative* Problem Noted Date Resolved Date Pain in left wrist 06/30/2021 06/30/2021 documented as of this encounter (statuses as of 01/26/2022) [facility] History of Past illness Narrative* Problem Noted Date Resolved Date Pain in left wrist 06/30/2021 06/30/2021 documented as of this encounter (statuses as of 01/28/2022) [facility] History of Past illness Narrative* Problem Noted Date Resolved Date Pain in left wrist 06/30/2021 06/30/2021 documented as of this encounter (statuses as of 01/29/2022) [facility] History of Past illness Narrative* Problem Noted Date Resolved Date Pain in left wrist 06/30/2021 06/30/2021 documented as of this encounter (statuses as of 01/29/2022) [facility] History of Past illness Narrative* Problem Noted Date Resolved Date Pain in left wrist 06/30/2021 06/30/2021 documented as of this encounter (statuses as of 01/29/2022) [facility] History of Past illness Narrative* Problem Noted Date Resolved Date Pain in left wrist 06/30/2021 06/30/2021 documented as of this encounter (statuses as of 01/30/2022) [facility] History of Past illness Narrative* Problem Noted Date Resolved Date Pain in left wrist 06/30/2021 06/30/2021 documented as of this encounter (statuses as of 01/30/2022) [facility] History of Past illness Narrative* Problem Noted Date Resolved Date Pain in left wrist 06/30/2021 06/30/2021 documented as of this encounter (statuses as of 01/30/2022) [facility] History of Past illness Narrative* Problem Noted Date Resolved Date Pain in left wrist 06/30/2021 06/30/2021 documented as of this encounter (statuses as of 02/02/2022) [facility] History of Past illness Narrative* Problem Noted Date Resolved Date Pain in left wrist 06/30/2021 06/30/2021 documented as of this encounter (statuses as of 02/03/2022) [facility] History of Past illness Narrative* Problem Noted Date Resolved Date Pain in left wrist 06/30/2021 06/30/2021 documented as of this encounter (statuses as of 03/21/2022) [facility] History of Past illness Narrative* Problem Noted Date Resolved Date Pain in left wrist 06/30/2021 06/30/2021 documented as of this encounter (statuses as of 03/26/2022) [facility] History of Past illness Narrative* Problem Noted Date Resolved Date Pain in left wrist 06/30/2021 06/30/2021 documented as of this encounter (statuses as of 03/27/2022) [facility] History of Past illness Narrative* Problem Noted Date Resolved Date Pain in left wrist 06/30/2021 06/30/2021 documented as of this encounter (statuses as of 04/07/2022) [address]11-2021 History of Past illness Narrative* Problem Noted Date Resolved Date Pain in left wrist 06/30/2021 06/30/2021 documented as of this encounter (statuses as of 04/09/2022) [address]-2021 History of Past illness Narrative* Problem Noted Date Resolved Date Pain in left wrist 06/30/2021 06/30/2021 documented as of this encounter (statuses as of 04/22/2022) [address]-2021 History of Past illness Narrative* Problem Noted Date Resolved Date Pain in left wrist 06/30/2021 06/30/2021 documented as of this encounter (statuses as of 04/24/2022) [facility] History of Past illness Narrative* Problem Noted Date Resolved Date Pain in left wrist 06/30/2021 06/30/2021 documented as of this encounter (statuses as of 05/11/2022) [address]-2021 History of Past illness Narrative* Problem Noted Date Resolved Date Pain in left wrist 06/30/2021 06/30/2021 documented as of this encounter (statuses as of 05/18/2022) [facility]10-11-2021 History of Past illness Narrative* Problem Noted Date Resolved Date Pain in left wrist 06/30/2021 06/30/2021 documented as of this encounter (statuses as of 05/20/2022) [address]11-2021 History of Past illness Narrative* Problem Noted Date Resolved Date Pain in left wrist 06/30/2021 06/30/2021 documented as of this encounter (statuses as of 05/20/2022) [facility]10-11-2021 History of Past illness Narrative* Problem Noted Date Resolved Date Pain in left wrist 06/30/2021 06/30/2021 documented as of this encounter (statuses as of 06/03/2022) [address]11-2021 History of Past illness Narrative* Problem Noted Date Resolved Date Pain in left wrist 06/30/2021 06/30/2021 documented as of this encounter (statuses as of 06/08/2022) [facility]10-11-2021 History of Past illness Narrative* Problem Noted Date Resolved Date Pain in left wrist 06/30/2021 06/30/2021 documented as of this encounter (statuses as of 06/10/2022) [facility]10[facility]-2021 History of Past illness Narrative* Problem Noted Date Resolved Date Pain in left wrist 06/30/2021 06/30/2021 documented as of this encounter (statuses as of 06/10/2022) [facility]2021 History of Past illness Narrative* Problem Noted Date Resolved Date Pain in left wrist 06/30/2021 06/30/2021 documented as of this encounter (statuses as of 07/02/2022) [facility]2021 History of Past illness Narrative* Problem Noted Date Resolved Date Pain in left wrist 06/30/2021 06/30/2021 documented as of this encounter (statuses as of 07/08/2022) [facility]10[facility]2021 History of Past illness Narrative* Problem Noted Date Resolved Date Pain in left wrist 06/30/2021 06/30/2021 documented as of this encounter (statuses as of 08/27/2022) [facility]10[facility]2021 History of Past illness Narrative* Problem Noted Date Resolved Date Pain in left wrist 06/30/2021 06/30/2021 documented as of this encounter (statuses as of 08/27/2022) [facility]10[facility]2021 History of Past illness Narrative* Problem Noted Date Resolved Date Pain in left wrist 06/30/2021 06/30/2021 documented as of this encounter (statuses as of 09/02/2022) [facility]10[facility]2021 History of Past illness Narrative* Problem Noted Date Resolved Date Pain in left wrist 06/30/2021 06/30/2021 documented as of this encounter (statuses as of 09/07/2022) [facility]2021 History of Past illness Narrative* Problem Noted Date Resolved Date Pain in left wrist 06/30/2021 06/30/2021 documented as of this encounter (statuses as of 09/28/2022) [facility] History of Past illness Narrative* Problem Noted Date Resolved Date Pain in left wrist 06/30/2021 06/30/2021 documented as of this encounter (statuses as of 10/09/2022) [address]-2021 History of Past illness Narrative* Problem Noted Date Resolved Date Pain in left wrist 06/30/2021 06/30/2021 documented as of this encounter (statuses as of 10/22/2022) [address]11-2021 History of Past illness Narrative* Problem Noted Date Resolved Date Pain in left wrist 06/30/2021 06/30/2021 documented as of this encounter (statuses as of 10/26/2022) [address]11-2021 History of Past illness Narrative* Problem Noted Date Resolved Date Pain in left wrist 06/30/2021 06/30/2021 documented as of this encounter (statuses as of 11/06/2022) [address]11-2021 History of Past illness Narrative* Problem Noted Date Resolved Date Pain in left wrist 06/30/2021 06/30/2021 documented as of this encounter (statuses as of 11/20/2022) [address]11-2021 History of Past illness Narrative* Problem Noted Date Resolved Date Pain in left wrist 06/30/2021 06/30/2021 documented as of this encounter (statuses as of 11/23/2022) [facility]10[facility]2021 History of Past illness Narrative* Problem Noted Date Resolved Date Pain in left wrist 06/30/2021 06/30/2021 documented as of this encounter (statuses as of 11/26/2022) [address]11-2021 History of Past illness Narrative* Problem Noted Date Resolved Date Pain in left wrist 06/30/2021 06/30/2021 documented as of this encounter (statuses as of 11/27/2022) [facility]10[facility]2021 History of Past illness Narrative* Problem Noted Date Resolved Date Pain in left wrist 06/30/2021 06/30/2021 documented as of this encounter (statuses as of 12/02/2022) [address]11-2021 History of Past illness Narrative* Problem Noted Date Resolved Date Pain in left wrist 06/30/2021 06/30/2021 documented as of this encounter (statuses as of 12/16/2022) [address]11-2021 History of Past illness Narrative* Problem Noted Date Resolved Date Pain in left wrist 06/30/2021 06/30/2021 documented as of this encounter (statuses as of 12/25/2022) [address]11-2021 History of Past illness Narrative* Problem Noted Date Resolved Date Pain in left wrist 06/30/2021 06/30/2021 documented as of this encounter (statuses as of 01/02/2023) [address]11-2021 History of Past illness Narrative* Problem Noted Date Resolved Date Pain in left wrist 06/30/2021 06/30/2021 documented as of this encounter (statuses as of 01/07/2023) [address]11-2021 History of Past illness Narrative* Problem Noted Date Resolved Date Pain in left wrist 06/30/2021 06/30/2021 documented as of this encounter (statuses as of 01/20/2023) [facility]10[facility]21 History of Past illness Narrative* Problem Noted Date Resolved Date Pain in left wrist 06/30/2021 06/30/2021 documented as of this encounter (statuses as of 01/26/2023) [facility]10[facility]-2021 History of Past illness Narrative* Problem Noted Date Resolved Date Pain in left wrist 06/30/2021 06/30/2021 documented as of this encounter (statuses as of 01/29/2023) [facility]10[facility]-2021 History of Past illness Narrative* Problem Noted Date Resolved Date Pain in left wrist 06/30/2021 06/30/2021 documented as of this encounter (statuses as of 03/08/2023) [facility]10[facility]-2021 History of Past illness Narrative* Problem Noted Date Resolved Date Pain in left wrist 06/30/2021 06/30/2021 documented as of this encounter (statuses as of 03/08/2023) [facility]10[facility]11-2021 History of Past illness Narrative* Problem Noted Date Resolved Date Pain in left wrist 06/30/2021 06/30/2021 documented as of this encounter (statuses as of 03/09/2023) [address]11-2021 History of Past illness Narrative* Problem Noted Date Resolved Date Pain in left wrist 06/30/2021 06/30/2021 documented as of this encounter (statuses as of 03/10/2023) [address]11-2021 History of Past illness Narrative* Problem Noted Date Resolved Date Pain in left wrist 06/30/2021 06/30/2021 documented as of this encounter (statuses as of 03/15/2023) [address]11-2021 History of Past illness Narrative* Problem Noted Date Resolved Date Pain in left wrist 06/30/2021 06/30/2021 documented as of this encounter (statuses as of 03/18/2023) [facility]10[facility]2021 History of Past illness Narrative* Problem Noted Date Resolved Date Pain in left wrist 06/30/2021 06/30/2021 documented as of this encounter (statuses as of 03/26/2023) [facility]10[facility]11-2021 History of Past illness Narrative* Problem Noted Date Diagnosed Date Resolved Date Pain in left wrist 06/30/2021 documented as of this encounter (statuses as of 03/30/2023) [facility]10[facility]2021 History of Past illness Narrative* Problem Noted Date Diagnosed Date Resolved Date Pain in left wrist 06/30/2021 documented as of this encounter (statuses as of 04/02/2023) [facility]10[facility]2021 History of Past illness Narrative* Problem Noted Date Diagnosed Date Resolved Date Pain in left wrist 06/30/2021 documented as of this encounter (statuses as of 05/10/2023) [facility]10[facility]2021 History of Past illness Narrative* Problem Noted Date Diagnosed Date Resolved Date Pain in left wrist 06/30/2021 documented as of this encounter (statuses as of 05/11/2023) [facility]10[facility]21 History of Past illness Narrative* Problem Noted Date Diagnosed Date Resolved Date Pain in left wrist 06/30/2021 documented as of this encounter (statuses as of 06/10/2023) [facility]10[facility]-2021 History of Past illness Narrative* Problem Noted Date Diagnosed Date Resolved Date Pain in left wrist 06/30/2021 1 documented as of this encounter (statuses as of 07/03/2023) [facility]10[facility]-2021 History of Past illness Narrative* Problem Noted Date Diagnosed Date Resolved Date Pain in left wrist 06/30/2021 1 documented as of this encounter (statuses as of 07/25/2023) [facility]10[facility]11-2021 History of Past illness Narrative* Problem Noted Date Diagnosed Date Resolved Date Pain in left wrist 06/30/2021 1 documented as of this encounter (statuses as of 08/10/2023) [facility]10[facility]11-2021 History of Past illness Narrative* Problem Noted Date Diagnosed Date Resolved Date Pain in left wrist 06/30/2021 documented as of this encounter (statuses as of 08/11/2023) [facility]10[facility]11-2021 History of Past illness Narrative* Problem Noted Date Diagnosed Date Resolved Date Pain in left wrist 06/30/2021 1 documented as of this encounter (statuses as of 08/30/2023) [facility]10-11-2021 History of Past illness Narrative* Problem Noted Date Diagnosed Date Resolved Date Pain in left wrist 06/30/2021 1 documented as of this encounter (statuses as of 09/06/2023) [facility]09-29-2021 NoteHNO ID: [id number] Author: Anant Padilla APRN.ACTUARY CLERK Service: Anesthesiology Author Type: Nurse Small Equipment Operator Type: Anesthesia Procedure Notes Filed: 06/18/2021 11:11 AM Note Text: ANESTHESIOLOGY PROCEDURE NOTE Airway General Information Procedure Start Time/Medication Administration: 06/18/2021 10:55 AM Procedure End Time: 06/18/2021 10:58 AM Patient location during procedure: OR Timeout Performed Pre-procedure: timeout performed Consent Obtained: Yes Patient identity confirmed: arm band, care hourly team members and patient Staffing ACTUARY CLERK: Anant Padilla APRN.ACTUARY CLERK Performed by: ACTUARY CLERK Indications and Patient Condition Preoxygenated: yes Patient position: sniffing Manual In-Line Stabilization: No Difficult Mask: No Indications for airway management: anesthesia anesthesia circuit Method: asleep Cricoid Pressure: No Final Airway Details Final airway type: supraglottic airway Number of attempts at approach: 1 Final Supraglottic Airway: i-gel Size 4 Seal Adequate: yes Failed airway: no Unrecognized esophageal intubation: no Airway not difficult SIGNATURE: Anant Padilla APRN.CRNA PATIENT NAME: Germán Martinez DATE: June 18, 2021 TIME: 11:11 AM CSN: [id number] NoteHNO ID: [id number] Author: Ananda Caldwell MD Service: ? Author Type: Anesthesiologist Type: Anesthesia Procedure Notes Filed: 06/18/2021 10:31 AM Note Text: ANESTHESIOLOGY PROCEDURE NOTE Peripheral Nerve Block General Information Procedure Start Time/Medication Administration: 06/18/2021 10:17 AM Procedure End time: 06/18/2021 10:21 AM Patient location during procedure: PACU Timeout Performed Pre-procedure: timeout performed Consent Obtained: Yes Patient identity confirmed: arm band and patient Reason for block: post-op pain management/at surgeon's request Staffing Anesthesiologist: Ananda Caldwell MD Performed by: anesthesiologist Preparation Sterility Preparation: hand hygiene performed prior to procedure, surgical cap used, mask used, sterile drape used during line insertion, skin prep agent completely dried prior to procedure Site Prep: Chloraprep Pre-Procedure Neuro Exam Location: LUE Sensory: intact Motor: intact Procedure Details Patient Position: supine (Sipine head of bed elevated) Monitoring: Pulse OX Block Type Upper Extremity: axillary Approach: axillary Multiple Levels: No Laterality: left Injection Technique: single-shot Ultrasound Guided: Yes Image in Chart: yes Local Infiltration: Yes Needle Needle Type: echogenic Needle Gauge: 20 G Needle Localization: anatomical landmarks Needle Insertion Depth: 3 cm Assessment Injection assessment: negative aspiration, incremental injection and local visualized surrounding nerve on ultrasound Paresthesia: immediately resolved Medications Administered Bupivacaine (PF) 0.5 % (5 mg/mL) injection, 15 mL SIGNATURE: Ananda Caldwell MD PATIENT NAME: Germán Martinez DATE: June 18, 2021 TIME: 10:27 AM [id number] Primary osteoarthritis of first carpometacarpal joint of left hand Primary localized osteoarthrosis, hand [facility] Diagnosis Class 3 severe obesity with serious comorbidity in adult, unspecified BMI, unspecified obesity type (HCC)- Primary Primary hypertension Unspecified essential hypertension Rheumatoid arthritis involving multiple sites, unspecified whether rheumatoid factor present (HCC) Obstructive sleep apnea syndrome Obstructive sleep apnea (adult) (pediatric) Acquired hypothyroidism Unspecified hypothyroidism Body mass index 40.0-44.9, adult (HCC) Body Mass Index 40.0-44.9, adult 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 Mixed hyperlipidemia Prediabetes Other abnormal glucose Metabolic syndrome Dysmetabolic Syndrome X Dietary counseling and surveillance Dietary surveillance and counseling documented in this encounter [facility] note* Diagnosis Class 2 obesity due to excess calories without serious comorbidity in adult, unspecified BMI- Primary Dietary counseling and surveillance Dietary surveillance and counseling BMI 37.0-37.9, adult Body Mass Index 37.0-37.9, adult Primary hypertension Unspecified essential hypertension Mixed hyperlipidemia Hypothyroidism, unspecified type DUNG (obstructive sleep apnea) Obstructive sleep apnea (adult) (pediatric) [facility] Diagnosis Arthritis of knee- Primary Unspecified arthropathy, lower leg documented in this encounter [facility] note* Diagnosis Class 3 severe obesity with serious comorbidity in adult, unspecified BMI, unspecified obesity type (HCC)- Primary Mixed hyperlipidemia Dietary counseling and surveillance Dietary surveillance and counseling Primary hypertension Unspecified essential hypertension DUNG (obstructive sleep apnea) Obstructive sleep apnea (adult) (pediatric) Acquired hypothyroidism Unspecified hypothyroidism Obstructive sleep apnea syndrome Obstructive sleep apnea (adult) (pediatric) Hypothyroidism, unspecified type Prediabetes Other abnormal glucose BMI 37.0-37.9, adult Body Mass Index 37.0-37.9, adult documented in this encounter [facility] note* Diagnosis Acute pain of left knee- Primary Pes anserine bursitis Pes anserinus tendinitis or bursitis documented in this encounter [facility] note* Diagnosis Rheumatoid arthritis involving multiple sites, unspecified whether rheumatoid factor present ([facility])- Primary High risk medication use Encounter for long-term (current) use of other medications Primary osteoarthritis of both knees Primary localized osteoarthrosis, lower leg [facility]* Diagnosis Class 3 severe obesity due to excess calories in adult, unspecified BMI, unspecified whether serious comorbidity present (HCC)- Primary Dietary counseling and surveillance Dietary surveillance and counseling BMI 36.0-36.9,adult Body Mass Index 36.0-36.9, adult Primary hypertension Unspecified essential hypertension Obstructive sleep apnea syndrome Obstructive sleep apnea (adult) (pediatric) Acquired hypothyroidism Unspecified hypothyroidism [facility] Diagnosis Chronic pain of left knee- Primary Pain in joint, lower leg Arthritis of knee Unspecified arthropathy, lower leg Chronic pain of right knee [facility] Diagnosis Class 3 severe obesity with serious comorbidity in adult, unspecified BMI, unspecified obesity type (HCC) Mixed hyperlipidemia Prediabetes Other abnormal glucose [facility] Diagnosis Rheumatoid arthritis involving multiple sites, unspecified whether rheumatoid factor present (HCC)- Primary Arthritis of knee Unspecified arthropathy, lower leg Arthritis of finger of right hand [facility] Diagnosis Class 3 severe obesity with serious comorbidity in adult, unspecified BMI, unspecified obesity type (HCC)- Primary Prediabetes Other abnormal glucose Obstructive sleep apnea syndrome Obstructive sleep apnea (adult) (pediatric) Primary hypertension Unspecified essential hypertension Dietary counseling and surveillance Dietary surveillance and counseling Body mass index 40.0-44.9, adult (HCC) Body Mass Index 40.0-44.9, adult Acquired hypothyroidism Unspecified hypothyroidism [facility] Diagnosis Rheumatoid arthritis involving multiple sites, unspecified whether rheumatoid factor present (HCC) High risk medication use Encounter for long-term (current) use of other medications Primary osteoarthritis of both knees Primary localized osteoarthrosis, lower leg [facility] Diagnosis Class 3 severe obesity with serious comorbidity in adult, unspecified BMI, unspecified obesity type (HCC) Prediabetes Other abnormal glucose [facility] Arthritis of finger of right hand- Primary [facility] Diagnosis Chronic pain of left knee- Primary Pain in joint, lower leg Tear of medial meniscus of left knee, current, unspecified tear type, initial encounter [facility] Diagnosis Arthritis of finger of right hand- Primary Rheumatoid arthritis involving multiple sites, unspecified whether rheumatoid factor present (HCC) [facility] Diagnosis Abnormal MRI, knee- Primary Nonspecific (abnormal) findings on radiological and other examination of musculoskeletal system [facility] Diagnosis Chronic pain of right knee- Primary Arthritis of knee Unspecified arthropathy, lower leg [facility]* Diagnosis Class 3 severe obesity with serious comorbidity in adult, unspecified BMI, unspecified obesity type (HCC)- Primary Obstructive sleep apnea syndrome Obstructive sleep apnea (adult) (pediatric) Body mass index 40.0-44.9, adult (HCC) Body Mass Index 40.0-44.9, adult Mixed hyperlipidemia Primary hypertension Unspecified essential hypertension Prediabetes Other abnormal glucose Dietary counseling and surveillance Dietary surveillance and counseling documented in this encounter [facility] note* Diagnosis Arthritis of knee- Primary Unspecified arthropathy, lower leg [facility] Diagnosis Class 3 severe obesity with serious comorbidity in adult, unspecified BMI, unspecified obesity type (HCC) Mixed hyperlipidemia Prediabetes Other abnormal glucose [facility] Diagnosis Class 3 severe obesity with serious comorbidity in adult, unspecified BMI, unspecified obesity type (HCC)- Primary Mixed hyperlipidemia Prediabetes Other abnormal glucose Obstructive sleep apnea syndrome Obstructive sleep apnea (adult) (pediatric) Body mass index 40.0-44.9, adult (HCC) Body Mass Index 40.0-44.9, adult Dietary counseling and surveillance Dietary surveillance and counseling Primary hypertension Unspecified essential hypertension documented in this encounter [facility] note* Diagnosis Class 3 severe obesity with serious comorbidity in adult, unspecified BMI, unspecified obesity type (HCC)- Primary documented in this encounter [facility] note* Diagnosis Class 3 severe obesity with serious comorbidity in adult, unspecified BMI, unspecified obesity type (HCC)- Primary Body mass index 40.0-44.9, adult (HCC) Body Mass Index 40.0-44.9, adult Primary hypertension Unspecified essential hypertension Obstructive sleep apnea syndrome Obstructive sleep apnea (adult) (pediatric) Mixed hyperlipidemia Prediabetes Other abnormal glucose Dietary counseling and surveillance Dietary surveillance and counseling Metabolic syndrome Dysmetabolic Syndrome X documented [facility] this encounter [facility]* Diagnosis Rheumatoid arthritis involving multiple sites, unspecified whether rheumatoid factor present (HCC)- Primary Pain in joint, multiple sites High risk medication use Encounter for long-term (current) use of other medications documented in this encounter [facility] note* Diagnosis Pain of right hand- Primary Pain in limb Arthritis of finger of right hand documented in this encounter [facility] note* Diagnosis Body mass index 40.0-44.9, adult (HCC) Body Mass Index 40.0-44.9, adult Prediabetes Other abnormal glucose Class 3 severe obesity with serious comorbidity in adult, unspecified BMI, unspecified obesity type (HCC) documented in this encounter [facility] note* Diagnosis Class 3 severe obesity with serious comorbidity in adult, unspecified BMI, unspecified obesity type (HCC) Body mass index 40.0-44.9, adult (HCC) Body Mass Index 40.0-44.9, adult Prediabetes Other abnormal glucose documented in this encounter [facility] note* Diagnosis Class 3 severe obesity with serious comorbidity in adult, unspecified BMI, unspecified obesity type (HCC) Mixed hyperlipidemia Prediabetes Other abnormal glucose documented in this encounter [facility] note* Diagnosis Pain Generalized pain documented in this encounter [facility] note* Diagnosis Class 3 severe obesity with serious comorbidity in adult, unspecified BMI, unspecified obesity type (HCC) Body mass index 40.0-44.9, adult (HCC) Body Mass Index 40.0-44.9, adult Metabolic syndrome Dysmetabolic Syndrome X documented in this encounter [facility] note* Diagnosis Class 3 severe obesity with serious comorbidity in adult, unspecified BMI, unspecified obesity type (HCC)- Primary Body mass index 40.0-44.9, adult (HCC) Body Mass Index 40.0-44.9, adult Metabolic syndrome Dysmetabolic Syndrome X Dietary counseling and surveillance Dietary surveillance and counseling Mixed hyperlipidemia Obstructive sleep apnea syndrome Obstructive sleep apnea (adult) (pediatric) Primary hypertension Unspecified essential hypertension Prediabetes Other abnormal glucose documented in this encounter [facility] for referral (narrative)* Outpatient Procedure (Routine) - Closed Specialty Diagnoses / Procedures Referred By Carlotta t Referred To [facility] Diagnoses Class 3 severe obesity with serious comorbidity in adult, unspecified BMI, unspecified obesity type (HCC) Procedures ECG COMPLETE ECG ROUTINE ECG W/LEAST 12 LDS W/I&R Yen Abernathy MD [facility] [address] [place] [id number] [facility] [address] [place] [address] Referral ID Status Reason Start Date Expiration Date V isits Requested Visits Authorized [id number] Closed Auto-Generate d Referral 01/25/2023 01/25/2024 1 1 [facility] Diagnostic Procedure Only (Routine) - Closed Specialty Diagnoses / Procedures Referred By Contac t Referred To Contact XR IMAGING Diagnoses Pain Procedures XR KNEE GENERAL 4V AP BOTH/PA BOTH/LAT/MERC RIGHT KNEE AP-WGT/LAT/BRANDONHANT Chris Marroquin MD [address] [address] [place] [address] Referral ID Status Reason Start Date Expiration Date V isits Requested Visits Authorized [id number] Closed Auto-Generate d Referral 08/08/2021 09/07/2022 1 1 [facility] Summary Purpose Family History No Family History Records FoundNo Family History Records FoundNo Family History Records Found Advance Directives No Advanced Directives Records FoundDocuments on File Type Date 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 Advance Directive(s) 06/18/2021 8:44 AM Advance Directive(s) 05/27/2021 11:47 AM Medications Administered Section Inactive Administered Medications - up to 3 most recent administrations Medication Order MAR Action Action Date Dose Rate Site ropivacaine (PF) 5 mg/mL (0.5 %) 8 mL injection (NAROPIN) 8 mL, Injection - FOR ORTHO USE ONLY, ONE TIME INJECTION, 1 dose, Starting on 03/21/22 at 1259, Until 03/21/22 at 1259 Given 03/21/2022 12:59 PM EDT 8 mL triamcinolone acetonide 80 mg injection (KeNALog 40) 80 mg, Injection - FOR ORTHO USE ONLY, ONE TIME INJECTION, 1 dose, Starting on 03/21/22 at 1259, Until 03/21/22 at 1259 Given 03/21/2022 12:59 PM EDT 80 mg Inactive Administered Medications - up to 3 most recent administrations Medication Order MAR Action Action Date Dose Rate Site betamethasone acetate-betamethasone sodium phosphate 3 mg injection (CELESTONE) 3 mg, Injection - FOR ORTHO USE ONLY, ONE TIME INJECTION, 1 dose, Starting on Wed09/10/22 at 1637, Until Wed09/10/22 at 1637 Given 09/10/2022 4:37 PM EST 3 mg Hand, Left lidocaine (PF) 10 mg/mL (1 %) 0.5 mL injection (XYLOCAINE) 0.5 mL, Injection - FOR ORTHO USE ONLY, ONE TIME INJECTION, 1 dose, Starting on Wed09/10/22 at 1637, Until Wed09/10/22 at 1637 Given 09/10/2022 4:37 PM EST 0.5 mL Hand, Left Inactive Administered Medications - up to 3 most recent administrations Medication Order MAR Action Action Date Dose Rate Site BUPivacaine (PF) 0.5 % (5 mg/mL) 8 mL injection 8 mL, Injection - FOR ORTHO USE ONLY, ONE TIME INJECTION, 1 dose, Starting on Wed12/25/22 at 0925, Until Wed12/25/22 at 09 Given 12/25/2022 9:25 AM EDT 8 mL Knee, Left BUPivacaine (PF) 0.5 % (5 mg/mL) 8 mL injection 8 mL, Injection - FOR ORTHO USE ONLY, ONE TIME INJECTION, 1 dose, Starting on Wed12/25/22 at 0925, Until Wed12/25/22 at 09 Given 12/25/2022 9:25 AM EDT 8 mL Knee, Right triamcinolone acetonide 80 mg injection (KeNALog 40) 80 mg, Injection - FOR ORTHO USE ONLY, ONE TIME INJECTION, 1 dose, Starting on Wed12/25/22 at 0925, Until Wed12/25/22 at 09 Given 12/25/2022 9:25 AM EDT 80 mg Knee, Left triamcinolone acetonide 80 mg injection (KeNALog 40) 80 mg, Injection - FOR ORTHO USE ONLY, ONE TIME INJECTION, 1 dose, Starting on Wed12/25/22 at 0925, Until Wed12/25/22 at 09 Given 12/25/2022 9:25 AM EDT 80 mg Knee, Right Inactive Administered Medications - up to 3 most recent administrations Medication Order MAR Action Action Date Dose Rate Site ROPivacaine (PF) 5 mg/mL (0.5 %) 1 mL injection (NAROPIN) 1 mL, Injection - FOR ORTHO USE ONLY, ONE TIME INJECTION, 1 dose, Starting on Wed03/29/23 at 1343, Until Wed03/29/23 at 1343 Given 03/29/2023 1:43 PM EDT 1 mL Hand, Right triamcinolone acetonide 40 mg injection (KeNALog 40) 40 mg, Injection - FOR ORTHO USE ONLY, ONE TIME INJECTION, 1 dose, Starting on Wed03/29/23 at 1343, Until Wed03/29/23 at 1343 Given 03/29/2023 1:43 PM EDT 40 mg Hand, Right Reason for Referral Specialty Diagnoses / Procedures Referred By Contac t Referred To Contact Diagnoses Class 3 severe obesity with serious comorbidity in adult, unspecified BMI, unspecified obesity type (HCC) Prediabetes Yen Abernathy MD [address] [facility] [address] [place] [address] Referral ID Status Reason Start Date Expiration Date Visits Re quested Visits Authorized [id number] Closed 1 1 Specialty Diagnoses / Procedures Referred By Contac t Referred To Contact MR IMAGING Diagnoses Chronic pain of left knee Tear of medial meniscus of left knee, current, unspecified tear type, initial encounter Procedures MRI KNEE WO IVCON LT MRI ANY JT LOWER EXTREM W/O CONTRAST Kym Cerda, [address] [address] Mr Imaging Referral ID Status Reason Start Date Expiration Date Visits Requested Visits Authorized [id number] Pending Review Auto-Generat ed Referral 10/22/2022 11/21/2023 1 1 Specialty Diagnoses / Procedures Referred By Contac t Referred To Contact Diagnoses Class 3 severe obesity with serious comorbidity in adult, unspecified BMI, unspecified obesity type (HCC) Body mass index 40.0-44.9, adult (HCC) Prediabetes Yen Abernathy MD [address] [address] [place] [address] Referral ID Status Reason Start Date Expiration Date Visits Re quested Visits Authorized [id number] Closed 1 1 Specialty Diagnoses / Procedures Referred By Contac t Referred To Contact Cardiology Diagnoses Class 3 severe obesity with serious comorbidity in adult, unspecified BMI, unspecified obesity type (HCC) Procedures CONSULT TO CARDIOLOGY OFFICE/OUTPATIENT [facility] HIGH MDM 60-74 MINUTES Yen Abernathy MD 1 [facility] [address] [place] [address] Referral ID Status Reason Start Date Expiration Date Visits Requested Visits Authorized [id number] Authorized PCP Requested Referral 01/28/2023 04/28/2023 1 1 Additional Source Comments INFORMATION SOURCE (unrecogn ized section and content) DATE CREATED AUTHOR AUTHOR'S ORGANIZ ATION 09/07/2023 [facility] DATE CREATED AUTHOR AUTHOR'S ORGANIZ ATION 10/05/2023 [facility] Source Comments (unrecognize d section and content) In the event this informatio n is protected by the Federal Confidentiality of Alcohol and Drug Abuse Patient Records regulations: The Federal rules restrict any use of the information to criminally investigate or prosecute any alcohol or drug abuse patient.[facility] the event this information is protected by the Federal Confidentiality of Alcohol and Drug Abuse Patient Records regulations: The Federal rules restrict any use of the information to criminally investigate or prosecute any alcohol or drug abuse patient.[facility] Center[facility] the event this information is protected by the Federal Confidentiality of Alcohol and Drug Abuse Patient Records regulations: The Federal rules restrict any use of the information to criminally investigate or prosecute any alcohol or drug abuse patient.[facility] CenterIn the event this information is protected by the Federal Confidentiality of Alcohol and Drug Abuse Patient Records regulations: The Federal rules restrict any use of the information to criminally investigate or prosecute any alcohol or drug abuse patient.[facility] CenterIn the event this information is protected by the Federal Confidentiality of Alcohol and Drug Abuse Patient Records regulations: The Federal rules restrict any use of the information to criminally investigate or prosecute any alcohol or drug abuse patient.[facility] CenterIn the event this information is protected by the Federal Confidentiality of Alcohol and Drug Abuse Patient Records regulations: The Federal rules restrict any use of the information to criminally investigate or prosecute any alcohol or drug abuse patient.[facility] CenterIn the event this information is protected by the Federal Confidentiality of Alcohol and Drug Abuse Patient Records regulations: The Federal rules restrict any use of the information to criminally investigate or prosecute any alcohol or drug abuse patient.[facility] CenterIn the event this information is protected by the Federal Confidentiality of Alcohol and Drug Abuse Patient Records regulations: The Federal rules restrict any use of the information to criminally investigate or prosecute any alcohol or drug abuse patient.[facility] CenterIn the event this information is protected by the Federal Confidentiality of Alcohol and Drug Abuse Patient Records regulations: The Federal rules restrict any use of the information to criminally investigate or prosecute any alcohol or drug abuse patient.[facility] CenterIn the event this information is protected by the Federal Confidentiality of Alcohol and Drug Abuse Patient Records regulations: The Federal rules restrict any use of the information to criminally investigate or prosecute any alcohol or drug abuse patient.[facility] CenterIn the event this information is protected by the Federal Confidentiality of Alcohol and Drug Abuse Patient Records regulations: The Federal rules restrict any use of the information to criminally investigate or prosecute any alcohol or drug abuse patient.[facility] CenterIn the event this information is protected by the Federal Confidentiality of Alcohol and Drug Abuse Patient Records regulations: The Federal rules restrict any use of the information to criminally investigate or prosecute any alcohol or drug abuse patient.[facility] CenterIn the event this information is protected by the Federal Confidentiality of Alcohol and Drug Abuse Patient Records regulations: The Federal rules restrict any use of the information to criminally investigate or prosecute any alcohol or drug abuse patient.[facility] CenterIn the event this information is protected by the Federal Confidentiality of Alcohol and Drug Abuse Patient Records regulations: The Federal rules restrict any use of the information to criminally investigate or prosecute any alcohol or drug abuse patient.[facility] CenterIn the event this information is protected by the Federal Confidentiality of Alcohol and Drug Abuse Patient Records regulations: The Federal rules restrict any use of the information to criminally investigate or prosecute any alcohol or drug abuse patient.[facility] CenterIn the event this information is protected by the Federal Confidentiality of Alcohol and Drug Abuse Patient Records regulations: The Federal rules restrict any use of the information to criminally investigate or prosecute any alcohol or drug abuse patient.[facility] CenterIn the event this information is protected by the Federal Confidentiality of Alcohol and Drug Abuse Patient Records regulations: The Federal rules restrict any use of the information to criminally investigate or prosecute any alcohol or drug abuse patient.[facility] CenterIn the event this information is protected by the Federal Confidentiality of Alcohol and Drug Abuse Patient Records regulations: The Federal rules restrict any use of the information to criminally investigate or prosecute any alcohol or drug abuse patient.[facility] CenterIn the event this information is protected by the Federal Confidentiality of Alcohol and Drug Abuse Patient Records regulations: The Federal rules restrict any use of the information to criminally investigate or prosecute any alcohol or drug abuse patient.[facility] CenterIn the event this information is protected by the Federal Confidentiality of Alcohol and Drug Abuse Patient Records regulations: The Federal rules restrict any use of the information to criminally investigate or prosecute any alcohol or drug abuse patient.[facility] CenterIn the event this information is protected by the Federal Confidentiality of Alcohol and Drug Abuse Patient Records regulations: The Federal rules restrict any use of the information to criminally investigate or prosecute any alcohol or drug abuse patient.[facility] CenterIn the event this information is protected by the Federal Confidentiality of Alcohol and Drug Abuse Patient Records regulations: The Federal rules restrict any use of the information to criminally investigate or prosecute any alcohol or drug abuse patient.[facility] CenterIn the event this information is protected by the Federal Confidentiality of Alcohol and Drug Abuse Patient Records regulations: The Federal rules restrict any use of the information to criminally investigate or prosecute any alcohol or drug abuse patient.[facility] CenterIn the event this information is protected by the Federal Confidentiality of Alcohol and Drug Abuse Patient Records regulations: The Federal rules restrict any use of the information to criminally investigate or prosecute any alcohol or drug abuse patient.[facility] CenterIn the event this information is protected by the Federal Confidentiality of Alcohol and Drug Abuse Patient Records regulations: The Federal rules restrict any use of the information to criminally investigate or prosecute any alcohol or drug abuse patient.[facility] CenterIn the event this information is protected by the Federal Confidentiality of Alcohol and Drug Abuse Patient Records regulations: The Federal rules restrict any use of the information to criminally investigate or prosecute any alcohol or drug abuse patient.[facility] CenterIn the event this information is protected by the Federal Confidentiality of Alcohol and Drug Abuse Patient Records regulations: The Federal rules restrict any use of the information to criminally investigate or prosecute any alcohol or drug abuse patient.[facility] CenterIn the event this information is protected by the Federal Confidentiality of Alcohol and Drug Abuse Patient Records regulations: The Federal rules restrict any use of the information to criminally investigate or prosecute any alcohol or drug abuse patient.[facility] CenterIn the event this information is protected by the Federal Confidentiality of Alcohol and Drug Abuse Patient Records regulations: The Federal rules restrict any use of the information to criminally investigate or prosecute any alcohol or drug abuse patient.[facility] CenterIn the event this information is protected by the Federal Confidentiality of Alcohol and Drug Abuse Patient Records regulations: The Federal rules restrict any use of the information to criminally investigate or prosecute any alcohol or drug abuse patient.[facility] CenterIn the event this information is protected by the Federal Confidentiality of Alcohol and Drug Abuse Patient Records regulations: The Federal rules restrict any use of the information to criminally investigate or prosecute any alcohol or drug abuse patient.[facility] CenterIn the event this information is protected by the Federal Confidentiality of Alcohol and Drug Abuse Patient Records regulations: The Federal rules restrict any use of the information to criminally investigate or prosecute any alcohol or drug abuse patient.[facility] CenterIn the event this information is protected by the Federal Confidentiality of Alcohol and Drug Abuse Patient Records regulations: The Federal rules restrict any use of the information to criminally investigate or prosecute any alcohol or drug abuse patient.[facility] CenterIn the event this information is protected by the Federal Confidentiality of Alcohol and Drug Abuse Patient Records regulations: The Federal rules restrict any use of the information to criminally investigate or prosecute any alcohol or drug abuse patient.[facility] CenterIn the event this information is protected by the Federal Confidentiality of Alcohol and Drug Abuse Patient Records regulations: The Federal rules restrict any use of the information to criminally investigate or prosecute any alcohol or drug abuse patient.[facility] CenterIn the event this information is protected by the Federal Confidentiality of Alcohol and Drug Abuse Patient Records regulations: The Federal rules restrict any use of the information to criminally investigate or prosecute any alcohol or drug abuse patient.[facility] CenterIn the event this information is protected by the Federal Confidentiality of Alcohol and Drug Abuse Patient Records regulations: The Federal rules restrict any use of the information to criminally investigate or prosecute any alcohol or drug abuse patient.[facility] CenterIn the event this information is protected by the Federal Confidentiality of Alcohol and Drug Abuse Patient Records regulations: The Federal rules restrict any use of the information to criminally investigate or prosecute any alcohol or drug abuse patient.[facility] CenterIn the event this information is protected by the Federal Confidentiality of Alcohol and Drug Abuse Patient Records regulations: The Federal rules restrict any use of the information to criminally investigate or prosecute any alcohol or drug abuse patient.[facility] CenterIn the event this information is protected by the Federal Confidentiality of Alcohol and Drug Abuse Patient Records regulations: The Federal rules restrict any use of the information to criminally investigate or prosecute any alcohol or drug abuse patient.[facility] CenterIn the event this information is protected by the Federal Confidentiality of Alcohol and Drug Abuse Patient Records regulations: The Federal rules restrict any use of the information to criminally investigate or prosecute any alcohol or drug abuse patient.[facility] CenterIn the event this information is protected by the Federal Confidentiality of Alcohol and Drug Abuse Patient Records regulations: The Federal rules restrict any use of the information to criminally investigate or prosecute any alcohol or drug abuse patient.[facility] CenterIn the event this information is protected by the Federal Confidentiality of Alcohol and Drug Abuse Patient Records regulations: The Federal rules restrict any use of the information to criminally investigate or prosecute any alcohol or drug abuse patient.[facility] CenterIn the event this information is protected by the Federal Confidentiality of Alcohol and Drug Abuse Patient Records regulations: The Federal rules restrict any use of the information to criminally investigate or prosecute any alcohol or drug abuse patient.[facility] CenterIn the event this information is protected by the Federal Confidentiality of Alcohol and Drug Abuse Patient Records regulations: The Federal rules restrict any use of the information to criminally investigate or prosecute any alcohol or drug abuse patient.[facility] CenterIn the event this information is protected by the Federal Confidentiality of Alcohol and Drug Abuse Patient Records regulations: The Federal rules restrict any use of the information to criminally investigate or prosecute any alcohol or drug abuse patient.[facility] CenterIn the event this information is protected by the Federal Confidentiality of Alcohol and Drug Abuse Patient Records regulations: The Federal rules restrict any use of the information to criminally investigate or prosecute any alcohol or drug abuse patient.[facility] CenterIn the event this information is protected by the Federal Confidentiality of Alcohol and Drug Abuse Patient Records regulations: The Federal rules restrict any use of the information to criminally investigate or prosecute any alcohol or drug abuse patient.[facility] CenterIn the event this information is protected by the Federal Confidentiality of Alcohol and Drug Abuse Patient Records regulations: The Federal rules restrict any use of the information to criminally investigate or prosecute any alcohol or drug abuse patient.[facility] CenterIn the event this information is protected by the Federal Confidentiality of Alcohol and Drug Abuse Patient Records regulations: The Federal rules restrict any use of the information to criminally investigate or prosecute any alcohol or drug abuse patient.[facility] CenterIn the event this information is protected by the Federal Confidentiality of Alcohol and Drug Abuse Patient Records regulations: The Federal rules restrict any use of the information to criminally investigate or prosecute any alcohol or drug abuse patient.[facility] CenterIn the event this information is protected by the Federal Confidentiality of Alcohol and Drug Abuse Patient Records regulations: The Federal rules restrict any use of the information to criminally investigate or prosecute any alcohol or drug abuse patient.[facility] CenterIn the event this information is protected by the Federal Confidentiality of Alcohol and Drug Abuse Patient Records regulations: The Federal rules restrict any use of the information to criminally investigate or prosecute any alcohol or drug abuse patient.[facility] CenterIn the event this information is protected by the Federal Confidentiality of Alcohol and Drug Abuse Patient Records regulations: The Federal rules restrict any use of the information to criminally investigate or prosecute any alcohol or drug abuse patient.[facility] CenterIn the event this information is protected by the Federal Confidentiality of Alcohol and Drug Abuse Patient Records regulations: The Federal rules restrict any use of the information to criminally investigate or prosecute any alcohol or drug abuse patient.[facility] CenterIn the event this information is protected by the Federal Confidentiality of Alcohol and Drug Abuse Patient Records regulations: The Federal rules restrict any use of the information to criminally investigate or prosecute any alcohol or drug abuse patient.[facility] CenterIn the event this information is protected by the Federal Confidentiality of Alcohol and Drug Abuse Patient Records regulations: The Federal rules restrict any use of the information to criminally investigate or prosecute any alcohol or drug abuse patient.[facility] CenterIn the event this information is protected by the Federal Confidentiality of Alcohol and Drug Abuse Patient Records regulations: The Federal rules restrict any use of the information to criminally investigate or prosecute any alcohol or drug abuse patient.[facility] CenterIn the event this information is protected by the Federal Confidentiality of Alcohol and Drug Abuse Patient Records regulations: The Federal rules restrict any use of the information to criminally investigate or prosecute any alcohol or drug abuse patient.[facility] CenterIn the event this information is protected by the Federal Confidentiality of Alcohol and Drug Abuse Patient Records regulations: The Federal rules restrict any use of the information to criminally investigate or prosecute any alcohol or drug abuse patient.[facility] CenterIn the event this information is protected by the Federal Confidentiality of Alcohol and Drug Abuse Patient Records regulations: The Federal rules restrict any use of the information to criminally investigate or prosecute any alcohol or drug abuse patient.[facility] CenterIn the event this information is protected by the Federal Confidentiality of Alcohol and Drug Abuse Patient Records regulations: The Federal rules restrict any use of the information to criminally investigate or prosecute any alcohol or drug abuse patient.[facility] CenterIn the event this information is protected by the Federal Confidentiality of Alcohol and Drug Abuse Patient Records regulations: The Federal rules restrict any use of the information to criminally investigate or prosecute any alcohol or drug abuse patient.[facility] CenterIn the event this information is protected by the Federal Confidentiality of Alcohol and Drug Abuse Patient Records regulations: The Federal rules restrict any use of the information to criminally investigate or prosecute any alcohol or drug abuse patient.[facility] CenterIn the event this information is protected by the Federal Confidentiality of Alcohol and Drug Abuse Patient Records regulations: The Federal rules restrict any use of the information to criminally investigate or prosecute any alcohol or drug abuse patient.[facility] CenterIn the event this information is protected by the Federal Confidentiality of Alcohol and Drug Abuse Patient Records regulations: The Federal rules restrict any use of the information to criminally investigate or prosecute any alcohol or drug abuse patient.[facility] CenterIn the event this information is protected by the Federal Confidentiality of Alcohol and Drug Abuse Patient Records regulations: The Federal rules restrict any use of the information to criminally investigate or prosecute any alcohol or drug abuse patient.[facility] CenterIn the event this information is protected by the Federal Confidentiality of Alcohol and Drug Abuse Patient Records regulations: The Federal rules restrict any use of the information to criminally investigate or prosecute any alcohol or drug abuse patient.[facility] CenterIn the event this information is protected by the Federal Confidentiality of Alcohol and Drug Abuse Patient Records regulations: The Federal rules restrict any use of the information to criminally investigate or prosecute any alcohol or drug abuse patient.[facility] CenterIn the event this information is protected by the Federal Confidentiality of Alcohol and Drug Abuse Patient Records regulations: The Federal rules restrict any use of the information to criminally investigate or prosecute any alcohol or drug abuse patient.[facility] CenterIn the event this information is protected by the Federal Confidentiality of Alcohol and Drug Abuse Patient Records regulations: The Federal rules restrict any use of the information to criminally investigate or prosecute any alcohol or drug abuse patient.[facility] Reason for Visit (unrecogniz ed section and content) Specialty Diagnoses / Procedures Referred By Contac t Referred To Contact Orthopedics / ORTHOPAEDIC SURGERY Diagnoses rt hand/middle finger injection Procedures YONG INJECT 1 betamethasone acetate-betamethasone sodium phosphate Ngoc Caldwell DO [address] [place] [address] Ngoc Caldwell DO [facility] [place] [address] Referral ID Status Reason Start Date Expiration Date V isits Requested Visits Authorized [id number] Closed Financial Clearance Not Required 03/29/2023 06/27/2023 1 1 Reason Onset Date Comments Refill Request 12/21/2021 Reason Onset Date Comments Refill Request 01/01/2022 Reason Comments Weight Problem Reason Comments Results Reason Comments Follow Up Knee Pain Reason Onset Date Comments Refill Request 04/07/2022 Reason Onset Date Comments Refill Request 04/22/2022 Reason Comments Knee Pain Left knee pain x 3 w eeks Reason Comments Joint Pain Reason Comments Patient Question Reason Comments Follow Up Reason Comments Appointment Reason Comments Established Patient Pain Reason Onset Date Comments Refill Request 07/08/2022 Reason Comments Follow Up 8 wk f/u Established Patient 8 wk f/u Knee Pain 8 wk f/u Reason Comments Established Patient Reason Onset Date Comments Refill Request 09/27/2022 Reason Comments Established Patient Pain Last seen 08/18/21 S/P Left thumb [facility] ar throplasty with LRTI and pinning Reason Comments Established Patient Knee Pain Reason Onset Date Comments Refill Request 10/23/2022 Reason Comments Patient Question Status of MRI prior- authorization Reason Comments Established Patient Mri results Follow Up Mri results Reason Comments Refill Request Reason Onset Date Comments Refill Request 01/06/2023 Reason Comments Results Reason Comments Joint Pain Right hand, left kne e Reason Comments Medication Problem Phentermine pa Reason Comments Seamer Elastic Band - Other Reason Comments Medication Preauthorization Enbrel PENDI NG [facility] Reason Comments NO AUTH REQUIRED Sulfasalazine NO AUT H REQUIRED [facility] Reason Onset Date Comments Refill Request 05/10/2023 Reason Onset Date Comments Refill Request Refill Request 06/10/2023 Reason Onset Date Comments Refill Request 07/01/2023 Reason Comments Radio Gen RMP Specialty Diagnoses / Procedures Referred By Contotilio t Referred To Contact XR IMAGING Diagnoses Pain Procedures XR KNEE GENERAL 4V AP BOTH/PA BOTH/LAT/MERC RIGHT KNEE AP-WGT/LAT/MERCHANT Chris Marroquin MD [address] [address] [facility] [address] Referral ID Status Reason Start Date Expiration Date V isits Requested Visits Authorized [id number] Closed Auto-Generate d Referral 08/08/2021 09/07/2022 1 1 Reason Onset Date Comments Refill Request 08/09/2023 Reason Onset Date Comments Refill Request 08/30/2023 Care Teams (unrecognized sec tion and content) Group Exercise Manager Relationship Specialty Start Date End Date Jero Landry, DO PCP - General Family Practice 10/20/15 Group Exercise Manager Relationship Specialty Start Date End Date Jero Landry, DO PCP - General Family Practice 10/20/15 Group Exercise Manager Relationship Specialty Start Date End Date Jero Landry, DO PCP - General Family Practice 10/20/15 Group Exercise Manager Relationship Specialty Start Date End Date Jero Landry, DO PCP - General Family Practice 10/20/15 Group Exercise Manager Relationship Specialty Start Date End Date Jero Landry, DO PCP - General Family Practice 10/20/15 Group Exercise Manager Relationship Specialty Start Date End Date Jero Landry, DO PCP - General Family Practice 10/20/15 Group Exercise Manager Relationship Specialty Start Date End Date Jero Landry, DO PCP - General Family Practice 10/20/15 Group Exercise Manager Relationship Specialty Start Date End Date Jero Landry, DO PCP - General Family Practice 10/20/15 Group Exercise Manager Relationship Specialty Start Date End Date Jero Landry, DO PCP - General Family Practice 10/20/15 Group Exercise Manager Relationship Specialty Start Date End Date Jero Landry, DO PCP - General Family Practice 10/20/15 Group Exercise Manager Relationship Specialty Start Date End Date Jero Landry, DO PCP - General Family Practice 10/20/15 Group Exercise Manager Relationship Specialty Start Date End Date Jero Landry, DO PCP - General Family Practice 10/20/15 Group Exercise Manager Relationship Specialty Start Date End Date Jero Landry, DO PCP - General Family Practice 10/20/15 Group Exercise Manager Relationship Specialty Start Date End Date Jero Landry, DO PCP - General Family Practice 10/20/15 Group Exercise Manager Relationship Specialty Start Date End Date Jero Landry, DO PCP - General Family Practice 10/20/15 Group Exercise Manager Relationship Specialty Start Date End Date Jero Landry, DO PCP - General Family Practice 10/20/15 Group Exercise Manager Relationship Specialty Start Date End Date Jero Landyr, DO PCP - General Family Practice 10/20/15 Group Exercise Manager Relationship Specialty Start Date End Date Jero Landry, DO PCP - General Family Medicine 10/20/15 Group Exercise Manager Relationship Specialty Start Date End Date Jero Landry, DO PCP - General Family Medicine 10/20/15 Group Exercise Manager Relationship Specialty Start Date End Date Jero Landry, DO PCP - General Family Medicine 10/20/15 Group Exercise Manager Relationship Specialty Start Date End Date Jero Landry, DO PCP - General Family Medicine 10/20/15 Group Exercise Manager Relationship Specialty Start Date End Date Jero Landry, DO PCP - General Family Medicine 10/20/15 Group Exercise Manager Relationship Specialty Start Date End Date Jero Landry, DO PCP - General Family Medicine 10/20/15 Group Exercise Manager Relationship Specialty Start Date End Date Jero Landry, DO PCP - General Family Medicine 10/20/15 Group Exercise Manager Relationship Specialty Start Date End Date Jero Landry, DO PCP - General Family Medicine 10/20/15 Group Exercise Manager Relationship Specialty Start Date End Date Jero Landry, DO PCP - General Family Medicine 10/20/15 Group Exercise Manager Relationship Specialty Start Date End Date Jero Landry, DO PCP - General Family Medicine 10/20/15 Group Exercise Manager Relationship Specialty Start Date End Date Jero Landry, DO PCP - General Family Medicine 10/20/15 Group Exercise Manager Relationship Specialty Start Date End Date Jero Landry, DO PCP - General Family Medicine 10/20/15 Group Exercise Manager Relationship Specialty Start Date End Date Jero Landry, DO PCP - General Family Medicine 10/20/15 Group Exercise Manager Relationship Specialty Start Date End Date Jero Landry, DO PCP - General Family Medicine 10/20/15 Group Exercise Manager Relationship Specialty Start Date End Date Jero Landry, DO PCP - General Family Medicine 10/20/15 Group Exercise Manager Relationship Specialty Start Date End Date Jero Landry, DO PCP - General Family Medicine 10/20/15 Group Exercise Manager Relationship Specialty Start Date End Date Jero Landry, DO PCP - General Family Medicine 10/20/15 Group Exercise Manager Relationship Specialty Start Date End Date Jero Landry, DO PCP - General Family Medicine 10/20/15 Group Exercise Manager Relationship Specialty Start Date End Date Jero Landry, DO PCP - General Family Medicine 10/20/15 Group Exercise Manager Relationship Specialty Start Date End Date Jero Landry, DO PCP - General Family Medicine 10/20/15 Group Exercise Manager Relationship Specialty Start Date End Date Jero Landry, DO PCP - General Family Medicine 10/20/15 Group Exercise Manager Relationship Specialty Start Date End Date Jero Landry DO PCP - General Family Medicine 10/20/15 Group Exercise Manager Relationship Specialty Start Date End Date Jero Landry DO PCP - General Family Medicine 10/20/15 Group Exercise Manager Relationship Specialty Start Date End Date Jero Landry PCP - [facility] 10/20/15 Group Exercise Manager Relationship Specialty Start Date End Date Jero Landry DO PCP [facility] 10/20/15 Group Exercise Manager Relationship Specialty Start Date End Date Jero Lnadry DO PCP [facility] 10/20/15 Group Exercise Manager Relationship Specialty Start Date End Date Jero Landry DO [facility] 10/20/15 Group Exercise Manager Relationship Specialty Start Date End Date Jero Landry DO [facility] 10/20/15 Group Exercise Manager Relationship Specialty Start Date End Date Jero Landry DO [facility] 10/20/15 Group Exercise Manager Relationship Specialty Start Date End Date Jero Landry DO [facility] 10/20/15 Group Exercise Manager Relationship Specialty Start Date End Date Jero Landry DO [facility] 10/20/15 FOR RECORDS PERTAINING TO PATIENTS WHO ARE OR HAVE BEEN ENROLLED IN A CHEMICAL DEPENDENCY/SUBSTANCEABUSE PROGRAM, SOME INFORMATION MAY BE OMITTED. This clinical summary was aggregated from multiple sources. Caution should be exercised in using it in the provision of clinical care. This summary normalizes information from multiple sources, and as a consequence, information in this document may materially change the coding, format and clinical context of patient data. In addition, data may be omitted in some cases. CLINICAL DECISIONS SHOULD BE BASED ON THE PRIMARY CLINICAL RECORDS. [facility]. provides no warranty or guarantee of the accuracy or completeness of information in this document.
== END | disposition home or self-care (01) ==
LOC: OPBI 12:12
PROVIDERS: PCP Family Medicine; Referring Provider Family Medicine; Visit Provider Family Medicine
DX: Z12.31 Encounter for screening mammogram for malignant neoplasm of breast (principal)
CPT/HCPCS: 77063; 77067

== ENCOUNTER → 2023-11-12 | Outpatient (CLI) | payer MEDICAID, SELFPAY ==
--- NOTE | 2023-11-12 15:06 | MRI_ITS ---
EXAM: MR RIGHT LOWER EXTREMITY WITHOUT INTRAVENOUS CONTRAST, FOOT CLINICAL INDICATION: ENTHESOPATHY TECHNIQUE: Multiplanar and multisequence MR images of the right foot without intravenous contrast. COMPARISON: Right foot radiographs, 04/22/2021. FINDINGS: LIGAMENTS: No definite ligamentous abnormality. TENDONS: No definite tendon abnormality. MUSCLES: No significant abnormality. No edema or myositis. FLUID: No significant abnormality. No joint effusion. BONES/JOINTS: Susceptibility related to tarsometatarsal orthopedic hardware at the first, second, and third rays. 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 As best visualized, normal marrow signal is identified throughout the mid and forefoot and there is no evidence of a fracture or dislocation. OTHER SOFT TISSUES: No significant abnormality. MRI/Lower Ext/No Jt/w/o IMPRESSION: 1. Susceptibility related to tarsometatarsal orthopedic hardware at the first, second, and third rays. 2. 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 Electronically Signed: Mushtaq Desai DO at 20:31 EST ,
--- OUTSIDE RECORDS SUMMARY | 2023-11-12 18:05 | XMS RPT_ITS | CCD ---
Author Name Unknown Address [address] [place] [address] Organization [facility] Care Team Providers Care Veneer Sample Maker Name Role Phone Will GLASS Jero A Primary Care Provider KYM CONRAD Referring Unavailab le WILL, JERO A Primary Care Unavailable KYM CONRAD Attending Unavailab le WILL, JERO A Primary Care Unavailable WILL, JERO A Primary Care Unavailable KAELYN FISH Referring Unavailable VIOLET DIXON Attending Unavailable WILL, JERO A Primary Care Unavailable NGOC DE LOS SANTOS Referring Unavailable NGOC DE LOS SANTOS Attending Unavailable WILL, JERO A Primary Care Unavailable KYM CONRAD Referring Unavailab le KYM CONRAD Attending Unavailab le WILL, JERO A Primary Care Unavailable MIGUELITO DAVIS Attending Unavailable WILL, JERO A Primary Care Unavailable KYM CONRAD Attending Unavailab le WILL, JERO A Primary Care Unavailable MIGUELITO DAVIS Referring Unavailable NOVA CHUN Attending Unavailable WILL, JERO A Primary Care Unavailable KYM CONRAD Referring Unavailab le WILL, JERO A Primary Care Unavailable KYM CONRAD Attending Unavailab le WILL, JERO A Primary Care Unavailable NGOC DE LOS SANTOS Attending Unavailable WILL, JERO A Primary Care Unavailable NGOC DE LOS SANTOS Referring Unavailable WILL, JERO A Primary Care Unavailable Jero Landry DO A Primary Care Provider Will GLASS, Jero A Primary Care Provider JERO LANDRY A Primary Care Unavailable YEN ABERNATHY Attending Unavailable WILL, JERO A Primary Care Unavailable KAELYN FISH Attending Unavailable WILL, JERO A Referring Unavailable WILL, JERO A Primary Care Unavailable JOSEMANUEL, YEN Attending Unavailable WILL, JERO A Referring Unavailable WILL, JERO A Primary Care Unavailable DIPHUC, YEN Attending Unavailable WILL, JERO A Primary Care Unavailable IAIN MONSON Attending Unavailabl e DIPHUC, YEN Referring Unavailable WILL, JERO A Primary Care Unavailable DIWANASH, YEN Referring Unavailable WILL, JERO A Primary Care Unavailable DIWANASH, EYN Attending Unavailable WILL, JERO A Primary Care Unavailable WILL, JERO A Primary Care Unavailable DIWANASH, YEN Attending Unavailable WILL, JERO A Referring Unavailable WILL, JERO A Primary Care Unavailable KAELYN FISH Attending Unavailable KAELYN FISH Referring Unavailable WILL, JERO A Referring Unavailable JOSEMANUEL, YEN Attending Unavailable WILL, JERO A Primary Care Unavailable Allergies Allergy Classification Reported Allergen(s) Allergy Type Date of Onset Reaction(s) Facility (20 sources) Acetaminophen / HYDROcodone; Translations: [HYDROCODONE-ACETA MINOPHEN] Drug Allergy 5 Itching [facility] Work Phone: (20 sources) Codeine; Translations: [CODEINE] Drug Allergy 5 Vomiting [facility] Work Phone: (20 sources) methIMAzole; Translations: [METHIMAZOLE] Drug Allergy 5 Rash [facility] Work Phone: (20 sources) DULoxetine; Translations: [DULOXETINE] Drug Allergy 6 Other: See Comments [facility] (20 sources) Hydroxychloroquine ; Translations: [HYDROXYCHLOROQUIN E] Drug Allergy 2 Rash [facility] (20 sources) meloxicam; Translations: [MELOXICAM] Drug Allergy 2 Other: See Comments [facility] Medications Current Medications Medication Drug Class(es) Dates [...] (20 sources) Dihydropyridine Calcium Channel Vinod take 5 mg by mouth once daily amLODIPine (NORVASC) 10 mg tablet Take 5 mg by mouth once daily. 0 Active Problems Active Problems Problem Classification Problem Date Documented Date Episodic/Chronic Coronary atherosclerosis and other heart disease (1 source) Atherosclerotic heart disease of [place] coronary artery without angina pectoris; Translations: [Coronary artery disease involving [place] heart, unspecified vessel or lesion type, unspecified whether angina present] Onset: 02-09-2023 Chronic Disorders of lipid metabolism (12 sources) Mixed hyperlipidemia; Translations: [Mixed hyperlipidemia] Onset: 05-28-2023 Chronic Essential hypertension (20 sources) Essential hypertension; Translations: [Essential (primary) hypertension] Onset: 06-18-2021 06-18-2021 Chronic Osteoarthritis (15 sources) Osteoarthrosis of the carpometacarpal joint of the thumb; Translations: [Unilateral primary osteoarthritis of first carpometacarpal joint, left hand] Onset: 11-05-2023 Chronic Other aftercare (20 sources) Taking high risk medication; Translations: [Other chcf (current) drug therapy] Onset: 01-12-2022 01-12-2022 Episodic Other connective tissue disease (1 source) Bursitis [...] sources) Metabolic syndrome; Translations: [Metabolic syndrome] Onset: 05-28-2023 Chronic Other nutritional; endocrine; and metabolic disorders (1 source) Morbid (severe) obesity due to excess calories; Translations: [Class 3 severe obesity with serious comorbidity in adult, unspecified BMI, unspecified obesity type (HCC)] Onset: 05-28-2023 Chronic Other nutritional; endocrine; and metabolic disorders (1 source) Body mass index (BMI) 40.0-44.9, adult; Translations: [Body mass index 40.0-44.9, adult (HCC)] Onset: 05-28-2023 Chronic Residual codes; unclassified (20 sources) Obstructive [...] status; Translations: [Dietary counseling and surveillance] Onset: 05-28-2023 Episodic Diabetes mellitus without complication (15 sources) Prediabetes; Translations: [Prediabetes] Onset: 05-28-2023 Episodic Joint disorders and dislocations; trauma-related (2 sources) Tear of medial meniscus of knee; Translations: [Other tear of medial meniscus, current injury, left knee, initial encounter] Onset: 11-12-2022 Episodic Other aftercare (2 sources) Other chcf (current) drug therapy; Translations: [High risk medication [...] Time Vital Sign Value Performing Clinician Donnie lit 11-05-2023 10:38-0500 Body height 165.1 cm Kaelyn Fish MD Work Phone: [facility] 11-05-2023 10:38-0500 Body temperature 98.01 [degF] Kaelyn Fish MD Work Phone: [facility] 11-05-2023 10:38-0500 Body weight 92.53 kg Kaelyn Fish MD Work Phone: [facility] 11-05-2023 10:38-0500 Diastolic blood pressure 55 mm[Hg] Kaelyn Fish MD Work Phone: [facility] 11-05-2023 10:38-0500 Heart rate 88 /min Kaelyn Fish MD Work Phone: [facility] 11-05-2023 10:38-0500 Respiratory rate 12 /min Kaelyn Fish MD Work Phone: [facility] 11-05-2023 10:38-0500 Systolic blood pressure 140 mm[Hg] Kaelyn Fish MD Work Phone: [facility] 09-06-2023 11:02-0500 Body height 165.1 cm Yen Abernathy MD Work Phone: [facility] 09-06-2023 11:02-0500 Body weight 90.72 kg Yen Abernathy MD Work Phone: [facility] 09-06-2023 11:02-0500 Diastolic blood pressure 72 mm[Hg] Yen Abernathy MD Work Phone: [facility] 09-06-2023 11:02-0500 Heart rate 95 /min Yen Abernathy MD Work Phone: [facility] 09-06-2023 11:02-0500 Systolic blood pressure 106 mm[Hg] Yen Abernathy MD Work Phone: [facility] 03-08-2023 14:00-0400 Body height 165.1 cm Kaelyn Fish MD Work Phone: [facility] 03-08-2023 14:00-0400 Body temperature 98.2 [degF] Kaelyn Fish MD Work Phone: [facility] 03-08-2023 14:00-0400 Body weight 93.49 kg Kaelyn Fish MD Work Phone: [facility] 03-08-2023 14:00-0400 Diastolic blood pressure 73 mm[Hg] Kaelyn Fish MD Work Phone: [facility] 03-08-2023 14:00-0400 Heart rate 82 /min Kaelyn Fish MD Work Phone: [facility] 03-08-2023 14:00-0400 SaO2% (BldA) [Mass fraction] 98 % Kaelyn Fish MD Work Phone: [facility] 03-08-2023 14:00-0400 Systolic blood pressure 139 mm[Hg] Kaelyn Fish MD Work Phone: [facility] 03-08-2023 09:26-0400 Body height 162.6 cm Yen Abernathy MD Work Phone: [facility] 03-08-2023 09:26-0400 Body weight 91.63 kg Yen Abernathy MD Work Phone: [facility] 01-25-2023 13:25-0400 Body height 162.6 cm Yen Abernathy MD Work Phone: [facility] 01-25-2023 13:25-0400 Body weight 91.9 kg Yen Abernathy MD Work Phone: [facility] 01-25-2023 13:25-0400 Diastolic blood pressure 70 mm[Hg] Yen Abernathy MD Work Phone: [facility] 01-25-2023 13:25-0400 Heart rate 101 /min Yen Abernathy MD Work Phone: [facility] 01-25-2023 13:25-0400 Systolic blood pressure 126 mm[Hg] Yen Abernathy MD Work Phone: [facility] 11-27-2022 09:29-0500 Body height 162.6 cm Yen Abernathy MD Work Phone: [facility] 11-27-2022 09:29-0500 Body weight 86.18 kg Yen Abernathy MD Work Phone: [facility] 08-27-2022 11:24-0500 Body height 162.6 cm Yen Abernathy MD Work Phone: [facility] 08-27-2022 11:24-0500 Body weight 93.89 kg Yen Abernathy MD Work Phone: [facility] 06-10-2022 11:00-0400 Body height 162.6 cm Velma Hastaub ASSISTANT PROFESSOR OF SPANISH.POWER PRESS TENDER Work Phone: [facility] 06-10-2022 11:00-0400 Body weight 97.07 kg Velma Hastaub ASSISTANT PROFESSOR OF SPANISH.POWER PRESS TENDER Work Phone: [facility] 05-18-2022 14:42-0400 Body height 162.6 cm Madie Barile PA-C Work Phone: [facility] 05-18-2022 14:42-0400 Body temperature 98.2 [degF] Madie Barile PA-C Work Phone: [facility] 05-18-2022 14:42-0400 Body weight 99.79 kg Madie Barile PA-C Work Phone: [facility] 05-18-2022 14:42-0400 Diastolic blood pressure 80 mm[Hg] Madie Barile PA-C Work Phone: [facility] 05-18-2022 14:42-0400 Heart rate 84 /min Madie Barile PA-C Work Phone: [facility] 05-18-2022 14:42-0400 Respiratory rate 12 /min Madie Barile PA-C Work Phone: [facility] 05-18-2022 14:42-0400 Systolic blood pressure 142 mm[Hg] Madie Barile PA-C Work Phone: [facility] 05-11-2022 11:39-0400 Body temperature 97.81 [degF] Steven Abdi MD Work Phone: [facility] 05-11-2022 11:39-0400 Body weight 100.88 kg Steven Abdi MD Work Phone: [facility] 05-11-2022 11:39-0400 Diastolic blood pressure 74 mm[Hg] Steven Abdi MD Work Phone: [facility] 05-11-2022 11:39-0400 Heart rate 82 /min Steven Abdi MD Work Phone: [facility] 05-11-2022 11:39-0400 Respiratory rate 21 /min Steven Abdi MD Work Phone: [facility] 05-11-2022 11:39-0400 SaO2% (BldA) [Mass fraction] 99 % Steven Abdi MD Work Phone: [facility] 05-11-2022 11:39-0400 Systolic blood pressure 132 mm[Hg] Steven Abdi MD Work Phone: [facility] 04-23-2022 11:14-0400 Body weight 99.34 kg Yen Abernathy MD Work Phone: [facility] 01-29-2022 10:29-0400 Body height 162.6 cm Velma Hastaub ASSISTANT PROFESSOR OF SPANISH.POWER PRESS TENDER Work Phone: [facility] 01-29-2022 10:29-0400 Body weight 99.79 kg Velma Hastaub ASSISTANT PROFESSOR OF SPANISH.P[employer] PRESS TENDER Work Phone: [facility] 01-20-2022 10:25-0400 Body height 162.6 cm Yen Abernathy MD Work Phone: [facility] 01-20-2022 10:25-0400 Body weight 110.68 kg Yen Abernathy MD Work Phone: [facility] 01-20-2022 10:25-0400 Diastolic blood pressure 80 mm[Hg] Yen Abernathy MD Work Phone: [facility] 01-20-2022 10:25-0400 Heart rate 88 /min Yen Abernathy MD Work Phone: [facility] 01-20-2022 10:25-0400 Respiratory rate 18 /min Yen Abernathy MD Work Phone: [facility] 01-20-2022 10:25-0400 SaO2% (BldA) [Mass fraction] 99 % Yen Abernathy MD Work Phone: [facility] 01-20-2022 10:25-0400 Systolic blood pressure 142 mm[Hg] Yen Abernathy MD Work Phone: [facility] Encounters Encounter Date Encounter Type Care Provider Facility Start: 11-05-2023 End: 11-05-2023 ambulatory [place] [facility] Facility[facility] Start: 11-05-2023 End: 11-05-2023 Patient encounter procedure Kaelyn Fish MD Work Phone: [facility] General Rheumatology and Arthritis Procedures Date Procedure Procedure Detail Performing Clinician Start: 03-29-2023 End: 03-29-2023 Arthrocnt aspir&/inj small jt/bursaw/us rec rprt Ngoc De Los Santos DO Work Phone: Start: 12-25-2022 Arthrocentesis aspir &/inj major jt/bursa w/o us Kym Conrad DO Work Phone: Start: 09-10-2022 Arthrocentesis aspir &/inj small jt/bursa w/o us Miguelito Davis MD Work Phone: Start: 03-21-2022 Arthrocentesis aspir &/inj major jt/bursa w/o us Kym Conrad DO Work Phone: Start: 01-12-2022 Lipid 1996 panel - S hebert or Plasma Kaelyn Fish MD Work Phone: Start: 08-13-2021 Radiologic exam knee complete 4/more views Chris Marroquin MD Work Phone: Plan of Treatment Date Care Activity Detail Author Start: 03-08-2028 Urine microalbumin profile [facility] Start: 01-12-2027 Lipid 1996 panel - Serum or Plasma Lipid Screening [facility] Start: 01-12-2027 Lipid panel Lipid Screening [facility] Start: 01-12-2027 LIPID SCREEN LIPID SCREEN [facility] Start: 05-10-2026 Diabetes Screening Diabetes Screening [facility] Start: 01-25-2026 DIABETES SCREEN DIABETES SCREEN [facility] Start: 05-19-2025 DIABETES SCREEN DIABETES SCREEN [facility] Start: 01-30-2025 DIABETES SCREEN DIABETES SCREEN [facility] Start: 01-12-2025 DIABETES SCREEN DIABETES SCREEN [facility] Start: 09-06-2024 BP Controlled (<130/80) BP Controlled (<130/80) [facility] Start: 01-26-2024 BP CONTROLLED (<130/80) BP CONTROLLED (<130/80) [facility] Start: 12-07-2023 Shingrix Vaccine (2 of 2) Shingrix Vaccine (2 of 2) [facility] Start: 10-05-2023 Covid-19 Vaccine ( season) Covid-19 Vaccine ( season) [facility] Start: 09-20-2023 Depression Assessment Depression Assessment [facility] Start: 05-21-2023 Covid-19 Vaccine ( season) Covid-19 Vaccine ( season) [facility] Start: 05-21-2023 Influenza vaccination [facility] Start: 2023 RSV Vaccine (1 - 1-dose 60+ series) RSV Vaccine (1 - 1-dose 60+ series) [facility] Start: 09-20-2022 DEPRESSION ASSESSMENT DEPRESSION ASSESSMENT [facility] Start: 08-22-2022 COVID-19 VACCINE (5 - Darcy risk series) COVID-19 VACCINE (5 - Darcy risk series) [facility] Start: 05-21-2022 Influenza vaccination INFLUENZA (#1) [facility] Start: 05-18-2022 End: 07-18-2022 CBC W Auto Differential panel - Blood CBC + DIFF Lab Routine Rheumatoid arthritis involving multiple sites, unspecified whether rheumatoid factor present (HCC) High risk medication use Primary osteoarthritis of both knees Expected: 05/18/2022, Expires: 07/18/2022 [facility] Work Phone: Immunizations Immunization Date Immunization Notes Care Provider Fa [facility] 08-03-2023 influenza, injectabl e, quadrivalent, preservative free Yen Abernathy MD Work Phone: [facility] 07-13-2022 influenza, injectabl e, quadrivalent, preservative free Kym Chicorelli DO Work Phone: [facility] 07-13-2022 influenza virus vaccine, unspecified formulation Kaelyn Fish MD Work Phone: [facility] 06-27-2022 COVID-19 booster vaccine, age 12+ yr, bivalent (PFIZER-BIONTECH) Kym Chicorelli DO Work Phone: [facility] 01-16-2022 COVID-19 original vaccine, age 12+ yr, monovalent (PFIZER-BIONTECH - SPRINGER TOP) Yen Abernathy MD Work Phone: [facility] 08-06-2021 COVID-19 original vaccine, age 12+ yr, monovalent (PFIZER-BIONTECH - PURPLE TOP) Yen Abernathy MD Work Phone: [facility] 06-05-2021 influenza virus vaccine, unspecified formulation Kym Chicorelli DO Work Phone: [facility] 05-28-2020 influenza, injectabl e, quadrivalent, preservative free Kym Chicorelli DO Work Phone: [facility] 05-27-2020 influenza nasal, unspecified formulation Kym Chicorelli DO Work Phone: [facility] 07-26-2019 influenza, injectabl e, quadrivalent, preservative free Kym Chicorelli DO Work Phone: [facility] 06-01-2018 influenza, injectabl e, quadrivalent, contains preservative Kym Chicorelli DO Work Phone: [facility] 03-08-2018 tetanus and diphther ia toxoids, not adsorbed, for adult use Kym Chicorelli DO Work Phone: [facility] 08-27-2017 influenza, injectabl e, quadrivalent, preservative free Kym Chicorelli DO Work Phone: [facility] 08-05-2016 influenza, seasonal, injectable Kym Chicorelli DO Work Phone: [facility] 02-05-2016 tetanus toxoid, redu micheal diphtheria toxoid, and acellular pertussis vaccine, adsorbed Kym Bakerli DO Work Phone: [facility] 06-27-2015 influenza, injectabl e, quadrivalent, preservative free Kym Bakerli DO Work Phone: [facility] 09-04-2009 novel [id number], preservative-free, injectable Kym Conrad DO Work Phone: [facility] Payers Date Payer Category Payer Medicaid [id number] 2020 Medicaid [employer] [facility] MEDICAID [id number] 2020-Present [phone] [address] [place] [address] Medicaid [id number] 2020 Medicaid [id number] 2020 Medicaid [id number] Social History Date Type Detail Facility Start: 05-11-2022 End: 02-09-2023 Tobacco smoking status NHIS Ex-smoker [facility] End: 09-20-2007 History of tobacco use Cigarette Smoker [facility] Start: 10-29-2021 End: 11-05-2023 Alcohol intake Current drinker of alcohol (finding) [facility] Start: 04-03-2021 End: 05-11-2022 Tobacco Comment 2-3 packs a week [facility] Start: 1965 Sex Assigned At Female [facility] Start: 07-14-2021 End: 07-02-2022 Exposure to SARS-CoV-2 (event) Not sure [facility] End: 09-20-2007 History of tobacco use Current smoker [facility] Start: 05-11-2022 End: 01-25-2023 Cigarettes smoked current (pack per day) - Reported 0.3 [facility] Start: 05-11-2022 End: 02-09-2023 Tobacco use and exposure Smokeless tobacco non-user [facility] Start: 01-25-2023 End: 03-29-2023 Tobacco use panel [facility] National Score (1-10 0), lower number is lower risk 90 [facility] Start: 05-17-2021 Gender identity Identifies as female gender (finding) [facility] Start: 05-17-2021 Sexual orientation Heterosexual (taz ding) [facility] Medical Equipment Procedure Code Equipment Code Equipment Origin al Text Equipment Identifier Dates Wire Dasha .045in Stainless Steel 5.5in Fixation Trocar Smooth Guide - [id number] Start: 06-18-2021 Clinical Notes 06-18-2021 to 11-05-2023 Kaelyn Fish MD - 11/05/2023 10:27 AM ESTTelephone Encounter - Katherine Perez LPN - 11/01/2023 11:02 AM Yen Fish MD - 09/06/2023 11:10 AM ESTPatient InstructionsPatient Instructions Note Date & Type Note Facility 11-05-2023 Note HNO ID: [id number] Author: KAELYN FISH MD Service: ? Author Type: Physician Type: Progress Notes Filed: 11/05/2023 12:58 Note Text: RHEUMATOLOGY PROGRESS NOTE Patient is here for a follow up visit for Patient presents with: Rheumatoid Arthritis HPI: Germán Martinez is a 58 year old female who presents joint pain, RA She was On Ozempic.now on trulicity. Doing well. Denies NSAIDs. Just taking Flexeril. Just recovered from covid Arava Has swelling in MCP 3 right. May need another inj by ortho. Thumb surgery [facility] 1 left- doing well, in [...] sleep: No PAST MEDICAL HISTORY Diagnosis Date Cataract Cervical stenosis of spine states receives injections [...] Past Family History, Past Social History. BP 140/55 Pulse 88 Temp 36.7 ?C (98 ?F) (Temporal) Resp 12 Ht 165.1 cm (5' 5 ) Wt 92.5 kg (204 lb) LMP (LMP Unknown) BMI 33.95 kg/m? Physical Exam GENERAL: Well appearing, alert, [...] 01/25/2023 WBC 8.54 01/25/2023 Hemoglobin 12.4 01/25/2023 Plat (more content not included)... [facility] 11-05-2023 History of Present illness Narrative RHEUMATOLOGY PROGRESS NOTE Patient is here for a follow up visit for Patient presents with: Rheumatoid Arthritis HPI: Germán Martinez is a 58 year old female who presents joint pain, RA She was On Ozempic.now on trulicity. Doing well. Denies NSAIDs. Just taking Flexeril. Just recovered from covid Arava Has swelling in MCP 3 right. May need another inj by ortho. Thumb surgery [facility] 1 left- doing well, in [...] sleep: No PAST MEDICAL HISTORY Diagnosis Date Cataract Cervical stenosis of spine states receives injections [...] Past Family History, Past Social History. BP 140/55 Pulse 88 Temp 36.7 C (98 F) (Temporal) Resp 12 Ht 165.1 cm (5' 5 ) Wt 92.5 kg (204 lb) LMP (LMP Unknown) BMI 33.95 kg/m Physical Exam GENERAL: Well appearing, alert, [...] 12.4 01/25/2023 Platelet Count [id number] 01/25/2023 Serology: RESULT: Bone mineralization/ degenerative changes: Bone density grossly within normal limits. There is moderate to severe medial compartment narrowing of the left knee and mild medial compartment narrowing of the right knee. Mild patellofemoral compartment narrowing noted bilaterally. Alignment of the osseous structures: The alignment appears anatomical without a subluxation or dislocation seen. Fractures: No acute fractures are seen. Soft tissues: No radiopaque foreign bodies are seen Result HistoryIMPRESSION: 1. Prior trapezium resection and slight proximal migration of the first metacarpal base. 2. Mild hand osteoarthritis. Radiology: IMPRESSION: SEVERE MEDIAL COMPARTMENT OSTEOARTHRITIS WITH SUBCHONDRAL TRABECULAR IMPACTION AND MENISCAL TEAR. Assessment and Plan (M06.9) Rheumatoid arthritis involving multiple sites, unspecified whether rheumatoid factor present ([facility]) (Z79.899) High risk medication use (M17.0) Primary osteoarthritis of both knees 58-year-old female with prior diagnosis of seronegative rheumatoid [...] knee. Recent XR shows OA left knee, ortho did inj, did not help much. She has follow up. RA seems stable. Labs every 3 months. Continue Arava. And SSZ. Bump in creatinine when she was taking Mobic. Improved when she stopped per the patient. Still active RA in hand. Would like to add Enbrel. Insurance initially denied 03/12. Added SSZ. Sill has active disease despite Arava nd SSZ. Had inadequate response and adverse reaction to Humira. Risks and benefits explained. Seeing ortho for foot/ankle. No orders found for this visit on 11/05/23. No orders of the defined types were placed in this encounter. No follow-ups on file. Kaelyn Fish MD documented in this encounter [facility] 11-01-2023 Miscellaneous Notes Pharmacy requesting the following refill. Requested Prescriptions Pending Prescriptions Disp Refills sulfaSALAzine (AZULFIDINE) 500 mg tablet 60 tablet 1 Sig: Take 1 tablet by mouth two times a day. Patient last appointment: 03/08/2023 Next Appointment: 11/05/2023 Patient Phone numbers: [phone] (home) Request is for script(s) to be escript to pharmacy. [facility] [address] [place] [address] - [address] [facility] - [phone] Katherine Perez LPN documented in this encounter [facility] 10-04-2023 Note HNO ID: [id number] Author: NGOC DE LOS SANTOS, Service: ? Author Type: Physician Type: Progress Notes Filed: 10/04/2023 12:47 Note Text: [facility] DEPARTMENT OF ORTHOPAEDIC SURGERY OFFICE VISIT DOCUMENTATION [...] tunnel syndrome Informed Consent Consent Obtained: Written Waldo Protocol A moment to CARE was completed. [...] long MCP Informed Consent Consent Obtained: Written Waldo Protocol A moment to CARE was completed. [...] patient voiced understanding of these instructions. Ngoc De Los Santos DO Sports Medicine Physician Department of Orthopaedic Surgery [facility] CHIEF COMPLAINT / REASON FOR VISIT: Germán [...] Intermittent Intervention/Comfort measu (more content not included)... [facility] 09-30-2023 Note HNO ID: [id number] Author: KYM CONRAD DO Service: ? Author [...] gym. She has an appointment with Dr. De Los Santos on Wednesday for arthritis on her right [...] further diagnostic and (more content not included)... [facility] 09-30-2023 Note HNO ID: [id number] Author: MARVIN FARLEY RT(Judy) Service: Radiology Author Type: Technologist Type: Progress [...] RT Daniel(R) September 30, 2023 8:49 AM [facility] 09-06-2023 Note HNO ID: [id number] Author: Yen Abernathy MD Service: ? Author Type: Physician Type: Progress Notes Filed: 09/06/2023 11:59 AM Note Text: Yen Abernathy MD [facility] [address] [facility], [address] [facility] [employer] [facility] - Fourth Floor [place] [address] Germán Martinez is a 57 year old [...] 3 mg. --Topamax was stopped by his senior associate due to possible risk of cataract development per pt/cognitive side effects --She was able to lose weight and was down to 188 pounds but during and with all the stressors in COVID cases she has gained some weight back again. Also lack of physical activities due to meniscal tear currently following with Ortho. Overall she has been able to maintain weight despite off of Ozempic :highest weight 244 pounds -Ozempic no longer covered PDM website checked and validated. All prescriptions have been APPROPRIATELY filled. No suspicious activity was identified. 09/06/23 by Yen Abernathy MD 2. Mixed hyperlipidemia - ICD9: 272.2, ICD10: E78.2 - suboptimal control - Encouraged following a low fat, low cholesterol di (more content not included)... [facility] 09-06-2023 History of Present illness Narrative Images from the original note were not included. Yen Abernathy MD [facility] [address] [facility], [address] [facility] [facility] - [address] [place] [address] Germán Martinez is a 57 year old [...] 3 mg. --Topamax was stopped by his senior associate due to possible risk of cataract development [...] as visual guide to low carb food: Links Global Limit carb consumption to 80- 100 grams [...] examples of apps to track calories are [employer], LOSE IT. Some patient have found FOODUCATE [...] like a plant based meal replacement called HealthTap Nutrition - can mix w froz berries and almond milk) This note was partially generated using The Point voice recognition system, and there may be [...] Past Social History. documented in this encounter [facility] 08-30-2023 Miscellaneous Notes Patient sent a [employer] message requesting the following refill. Requested Prescriptions Pending Prescriptions Disp Refills dulaglutide (TRULICITY) 3 mg/0.5 mL pen injector 6 mL 0 Sig: Inject 3 mg subcutaneously one time a week. Next Appointment: 09/06/2023 Patient Phone numbers: [phone] (home) Request is for script(s) to be escript to pharmacy. Oma Fitzgerald MA documented in this encounter [facility] 08-11-2023 Miscellaneous Notes Patient requesting the following refill. Requested Prescriptions Pending Prescriptions Disp Refills sulfaSALAzine (AZULFIDINE) 500 mg tablet 60 tablet 1 Sig: Take 1 tablet by mouth two times a day. Patient last appointment: 03/08/2023 Next Appointment: 11/05/2023 Patient Phone numbers: [phone] (home) Request is for script(s) to be escript to pharmacy. [employer] [facility] [address] [place] [address] [address] [facility] - [phone] Katherine Perez LPN documented in this encounter [facility] 07-02-2023 Miscellaneous Notes Patient sent a [employer] message requesting the following refill. Requested Prescriptions Pending Prescriptions Disp Refills metFORMIN ER (GLUCOPHAGE XR) 500 mg 24 hr tablet 180 tablet 0 Sig: Take 2 tablets by mouth daily with breakfast. Next Appointment: [place] 09/06/23 Patient Phone numbers: [phone] (home) Request is for script(s) to be escript to pharmacy. Fidelina Garay Ma documented in this encounter [facility] 06-10-2023 Miscellaneous Notes Patient called asking if her prescription for Azulfidine 500 mg was sent to her pharmacy. Confirmed it was sent on 06/10/2023. sulfaSALAzine (AZULFIDINE) 500 mg tablet 60 tablet 1 06/10/2023 -- Sig: take 1 tablet by mouth twice daily. Sent to pharmacy as: sulfaSALAzine (AZULFIDINE) 500 mg tablet [employer] [address] [place] [address] [address] [facility] - [phone] Katherine Perez LPN Pharmacy requesting the following refill. Requested Prescriptions Pending Prescriptions Disp Refills sulfaSALAzine (AZULFIDINE) 500 mg tablet [Pharmacy Med Name: sulfasalazine 500 mg tablet] 60 tablet 1 Sig: take 1 tablet by mouth twice daily. Patient last appointment: 03/08/2023 Next Appointment: 07/08/2023 Patient Phone numbers: [phone] (home) Request is for script(s) to be escript to pharmacy. [employer] [address] [place] [address] [address] [facility] - [phone] Katherine Perez LPN documented in this encounter [facility] 05-28-2023 Note HNO ID: [id number] Author: Yen Abernathy MD Service: ? Author Type: Physician Type: Progress Notes Filed: 05/28/2023 2:58 PM Note Text: Yen Abernathy MD [address], [address] [facility] - Fourth Floor [place] [address] This Team Access Model visit is a virtual visit It required patient-provider interaction for the medical decision making as documented below. Consent was obtained to complete today's distance health visit. I have communicated my name and active licensure. The patient's identity and physical location were verified at the time of this visit. Either the patient or their legal parts sales representative has been informed of the risks [...] 3 mg. --Topamax was stopped by his senior associate due to possible risk of cataract development [...] program. Also rein (more content not included)... [facility] 05-10-2023 Miscellaneous Notes Pharmacy called requesting the following refill. Requested Prescriptions Pending Prescriptions Disp Refills Phentermine HCl 37.5 mg tablet 15 tablet 1 Si/2 pill daily dulaglutide (TRULICITY) 1.5 mg/0.5 mL pen injector 2 mL 1 Sig: Inject 1.5 mg subcutaneously one time a week. Next Appointment: Visit date not found Patient Phone numbers: [phone] (home) Request is for script(s) to be escript to pharmacy. Oma Fitzgerald documented in this encounter [facility] 04-16-2023 Note HNO ID: [id number] Author: Violet Dixon PA-C Service: ? Author Type: Physician Data Warehouse Consultant Type: Progress Notes Filed: 04/16/2023 10:30 AM Note Text: Ms. Germán Martinez presents today for bilateral knee corticosteroid injections. She has known osteoarthritis and has been treated with injections in the past. Her last injections were 12/25/2022. Today she rates her pain a 5 on a scale of 0 to 10. Large Joint Arthro/Inj: R knee joint Informed Consent Consent Obtained: Verbal Waldo Protocol A moment to CARE was completed. [...] knee joint Informed Consent Consent Obtained: Verbal Waldo Protocol A moment to CARE was completed. [...] instruments, equipment or retained foreign bodies applicable. Violet Dixon PA-C [facility] 04-02-2023 Miscellaneous Notes LV for patient to give me a call back Zuleima Helms Sulfasalazine NO AUTH REQUIRED [facility] COVER MY MEDS Zuleima Helms Sulfasalazine PENDING [facility] COVER MY MEDS Zuleima Helms documented in this encounter [facility] 03-29-2023 Note HNO ID: [id number] Author: Ngoc De Los Santos, DO Service: ? Author Type: Physician Type: Progress Notes Filed: 03/29/2023 1:49 PM Note Text: [facility] DEPARTMENT OF ORTHOPAEDIC SURGERY OFFICE VISIT DOCUMENTATION [...] MCP CSi Informed Consent Consent Obtained: Written Waldo Protocol A moment to CARE was completed. [...] patient voiced understanding of these instructions. Ngoc De Los Santos DO Sports Medicine Physician Department of Orthopaedic Surgery [facility] CHIEF COMPLAINT / REASON FOR VISIT: Germán [...] Any recent skin changes or rashes? No Germná Martinez is a 58 year old female with the presenting complaint of Established Patient of the Right Middle Finger. Germán reports a current pain level of 6 (Finger). She describes the pain as Aching. The pain is Intermittent, and has lasted for 3 Months. Interventions tried include Medication. . She was last seen in orthopaedic clinic for her hand/finger on 12/10/2022 with Miguelito Davis. Most recent hand imaging was completed on 09/11/2022 (XR HAND GENERAL 3V PA/LAT/OBL RIGHT) . The most recent injection was Small Joint Arthro/Inj: R long MCP, injected on 12/10/2022 by Miguelito Davis. In the past (based on all medication hist (more content not included)... [facility] 03-29-2023 History of Present illness Narrative Associated Order(s): Small Joint Arthro/Inj: R long MCP CSi Post-Procedure Diagnose(s): Pain of right hand; Arthritis of finger of right hand Images from the original note were not included. [facility] DEPARTMENT OF ORTHOPAEDIC SURGERY OFFICE VISIT DOCUMENTATION [...] MCP CSi Informed Consent Consent Obtained: Written Waldo Protocol A moment to CARE was completed. [...] patient voiced understanding of these instructions. Ngoc De Los Santos DO Sports Medicine Physician Department of Orthopaedic Surgery [facility] CHIEF COMPLAINT / REASON FOR VISIT: Germán [...] for her hand/finger on 12/10/2022 with Miguelito Davis. Most recent hand imaging was completed on 09/11/2022 (XR HAND GENERAL 3V PA/LAT/OBL RIGHT) . The most recent injection was Small Joint Arthro/Inj: R long MCP, injected on 12/10/2022 by Miguelito Davis. In the past (based on all medication history on file), Germán has tried the following anti-inflammatory medications (not necessarily for this reason for visit): betamethasone acetate,sod phos, dexamethasone sodium phosphate, methylprednisolone acetate, naproxen, prednisone, triamcinolone acetonide. Last XR Hand/Finger - Impression Only XR HAND GENERAL 3V PA/LAT/OBL RIGHT Exam End: 09/09/2022 8:23 AM (Final result) Impression: IMPRESSION: Mild osteoarthritis. Welder Gun: TOREY Transcribe Date/Time: Sep 11 2022 11:36A [...] the hand today. documented in this encounter [facility] 03-25-2023 Miscellaneous Notes Please see other encounter. documented in this encounter [facility] 03-18-2023 Miscellaneous Notes Enbrel PENDING [facility] COVER MY MEDS Zuleima Helms documented in this encounter [facility] 03-15-2023 Miscellaneous Notes called in and states she received a letter from insurance stating stress echo was denied by insurance and requires an appeal from provider. [facility] e-mail was also sent to . Myah Watson LPN documented in this encounter [facility] 03-09-2023 Miscellaneous Notes Phentermine prior auth submitted via cover my meds Oma Fitzgerald MA documented in this encounter [facility] 03-08-2023 Note HNO ID: [id number] Author: Kaelyn Fish MD Service: ? Author [...] need another inj by ortho. Thumb surgery [facility] 1 left- doing well, in [...] 8.54 01/25/2023 Hemog (more content not included)... [facility] 03-08-2023 Instructions Kaelyn Fish MD - 03/08/2023 2:19 PM EDT Cell count on knee fluid documented in this encounter [facility] 03-08-2023 History of Present illness Narrative RHEUMATOLOGY [...] need another inj by ortho. Thumb surgery [facility] 1 left- doing well, in [...] multiple sites, unspecified whether rheumatoid factor present ([facility]) (primary encounter diagnosis) (M25.50) Pain in joint, [...] Kaelyn Fish MD documented in this encounter [facility] 03-08-2023 Miscellaneous Notes Called LVM To make 1 month follow up with documented in this encounter [facility] 03-08-2023 Note HNO ID: [id number] Author: Yen Abernathy MD Service: ? Author Type: Physician Type: Progress Notes Filed: 03/08/2023 12:49 PM Note Text: Yen Abernathy MD [address], [facility] [address] [facility] - [address] [place] [address] This Team Access Model visit is a [...] visit. Either the patient or their legal parts sales representative has been informed of the risks [...] is going temperature. -- Was seen by lens polisher hand for abnormal EKG has been scheduled for [...] /low sugar diet (more content not included)... [facility] 03-08-2023 Instructions Yen Abernathy MD - 03/08/2023 [...] per day. Low-carbohydrate diet -- Low- and zhmi-vpr-yurlmimekmsf diets (eg, Atkins diet, Sportody diet) have become popular ways to lose weight quickly. With a fwxa-xhv-gpjkbfqwqjcs diet, you eat between 0 and 60 [...] do not contain carbohydrates. Side effects of wcpp-gsx-arzoztbmnqcc diets can include constipation, headache, bad breath, [...] are not recommended. A doctor, nurse, or jig boring machine operator for metal can help you find a safe and effective way to lose weight and keep it off. Adapted from [facility] My opinion 3 hour Rule: [...] as visual guide to low carb food: [email or web address]://[email or web address]/ ( visual guide for low carb diet) [...] like a plant based meal replacement called ClearFit - can mix w froz berries and [...] examples of apps to track calories are beRecruitedPAL, LOSE IT. Some patient have found FOODUCATE to help with decisions around food, however choose apps that best suits you. PHENTERMINE Rule 4731-07-24 was amended and in effect as of 11/17/22 making phentermine chcf Rx for obesity. Monthly visits will no [...] at or call local emergency services at 911. What other information should I know? Keep all appointments with your doctor and the laboratory. Do not let anyone else take your medication. Phentermine is a controlled substance. It is FDA approved for up to 3 months. Prescriptions may be refilled only a limited number of times. Keep a written list of all of your prescription and nonprescription (luhr-jla-mqlqeed) medicines, in addition to vitamins, minerals, or [...] make up for a missed one. Sources [facility] Consumer Medication Info: http://www.ncbi.nlm.nih.gov/pubmed health/WOX2768996/ AMA patient handouts: http://www.amaassn.org/ama1/pub/up load/mm/433/phrxsurgery.pdf Drugs.com: http://www.drugs.com/pro/phentermi ne.html documented in this encounter [facility] 03-08-2023 History of Present illness Narrative Images from the original note were not included. Yen Abernathy MD [facility] [address] [facility], [address] [facility] [facility] - Fourth Floor [place] [address] This Team Access Model visit is a [...] visit. Either the patient or their legal parts sales representative has been informed of the risks [...] is going temperature. -- Was seen by lens polisher hand for abnormal EKG has been scheduled for [...] increase NEAT. --Topamax was stopped by his senior associate due to possible risk of cataract development [...] 1.5 mg. Several stressors working on her [place] custody -Increased hunger cravings Discussed adding phentermine [...] as visual guide to low carb food: Links Global Limit carb consumption to 80- 100 grams [...] examples of apps to track calories are beRecruitedPAL, LOSE IT. Some patient have found FOODUCATE [...] like a plant based meal replacement called [employer] Sk[employer]p Nutrition - can mix w froz berries and almond milk) This note was partially generated using The Point voice recognition system, and there may be [...] Past Social History. documented in this encounter [facility] 03-02-2023 Note HNO ID: [id number] Author: Yen Abernathy MD Service: ? Author Type: Physician Type: Progress Notes Filed: 03/02/2023 10:44 AM Note Text: History Review: I have reviewed and modified as needed, the following during this visit: Allergies, Past Medical History, Past Surgical History, Past Family History, Past Social History. [facility] 02-12-2023 Note HNO ID: [id number] Author: Yen Abernathy MD Service: ? Author Type: Physician Type: Progress Notes Filed: 02/12/2023 9:07 AM Note Text: Yen Abernathy MD [facility] [address] [place] [address], [address] [facility] - [address] [place] [address] This Team Access Model visit is a [...] visit. Either the patient or their legal parts sales representative has been informed of the risks [...] is going temperature. -- Was seen by lens polisher hand for abnormal EKG has been scheduled for [...] Germán is agreeable to this plan. Reviewed lens polisher hand note. - Pharmacological intervention and - Behavioral and pharmacological intervention --She is also under a lot of anxiety is struggling with her grandkids custody/but has been coping better. -- counseled in length ,recommended Low carb /low sugar diet --managing maladaptive eating behaviors and adding resistance exercise. Continue low carb diet, weights/cardio exercise and increase NEAT. --Topamax was stopped by his senior associate due to possible risk of cataract development per pt/cognitiv (more content not included)... [facility] 02-09-2023 Note HNO ID: [id number] Author: Iain Monson MD Service: ? Author [...] Cuff Size 05/2 (more content not included)... [facility] 01-29-2023 Miscellaneous Notes Patient informed. Cardiology referral was faxed however I did give the patient their number as well. Leena Dee MA No bad findings on EKG but can have her see a lens polisher hand before starting phentermine Phone call from patient stating she is concerned with her EKG result. She states she was looking on the Internet and has questions about this and with her medications. Leena Dee MA documented in this encounter [facility] 01-25-2023 Note HNO ID: [id number] Author: Yen Abernathy MD Service: ? Author Type: Physician Type: Progress Notes Filed: 01/25/2023 3:57 PM Note Text: Yen Abernathy MD [facility] [address] [place] [address], [facility] [address] [facility] [address] [place] [address] Germán Martinez is a 57 year old [...] increase NEAT. --Topamax was stopped by his senior associate due to possible risk of cataract development [...] bedtime. 9. Predia (more content not included)... [facility] 01-25-2023 Instructions Yen Abernathy MD - 01/25/2023 [...] per day. Low-carbohydrate diet -- Low- and cpsn-rzm-sxlartgiaeuq diets (eg, Atkins diet, Sportody diet) have become popular ways to lose weight quickly. With a nfin-ihd-xxukrbfhqlox diet, you eat between 0 and 60 [...] do not contain carbohydrates. Side effects of jxfb-ukt-nfatypzzutkf diets can include constipation, headache, bad breath, [...] are not recommended. A doctor, nurse, or jig boring machine operator for metal can help you find a safe and effective way to lose weight and keep it off. Adapted from [facility] My opinion 3 hour Rule: -last meal [...] like a plant based meal replacement called HealthTap Nutrition - can mix w froz berries [...] examples of apps to track calories are beRecruitedPAL, LOSE IT. Some patient have found FOODUCATE to help with decisions around food, however choose apps that best suits you. PHENTERMINE Rule 4731-07-24 was amended and in effect as of 11/17/22 making phentermine joint terminal attack controller Rx for obesity. Monthly visits will no [...] at or call local emergency services at 076. What other information should I know? Keep all appointments with your doctor and the laboratory. Do not let anyone else take your medication. Phentermine is a controlled substance. It is FDA approved for up to 3 months. Prescriptions may be refilled only a limited number of times. Keep a written list of all of your prescription and nonprescription (rigz-qno-ndqvwyu) medicines, in addition to vitamins, minerals, or [...] make up for a missed one. Sources [facility] Consumer Medication Info: http://www.ncbi.nlm.nih.gov/pubmed health/UXC1137412/ AMA patient handouts: http://www.amaassn.org/ama1/pub/up load/mm/433/phrxsurgery.pdf Drugs.com: http://www.drugs.com/pro/phentermi ne.html documented in this encounter [facility] 01-25-2023 History of Present illness Narrative Images from the original note were not included. Yen Abernathy MD [facility] [address] [facility], [address] [facility] - [address] [place] [address] Germán Martinez is a 57 year old [...] increase NEAT. --Topamax was stopped by his senior associate due to possible risk of cataract development [...] as visual guide to low carb food: Links Global Limit carb consumption to 80- 100 grams [...] examples of apps to track calories are beRecruitedPAL, LOSE IT. Some patient have found FOODUCATE [...] like a plant based meal replacement called HealthTap Nutrition - can mix w froz berries and almond milk) This note was partially generated using The Point voice recognition system, and there may be [...] Past Social History. documented in this encounter [facility] 01-06-2023 Miscellaneous Notes Pharmacy sent a [employer] message requesting the following refill. Requested Prescriptions Pending Prescriptions Disp Refills metFORMIN ER (GLUCOPHAGE XR) 500 mg 24 hr tablet 180 tablet 0 Sig: Take 2 tablets by mouth daily with breakfast. Next Appointment: [place] 03/08/23 Patient Phone numbers: [phone] (home) Request is for script(s) to be escript to pharmacy. Fidelina Garay Ma documented in this encounter [facility] 01-01-2023 Miscellaneous Notes Pharmacy requesting the following refill. Requested Prescriptions Pending Prescriptions Disp Refills leflunomide (ARAVA) 20 mg tablet [Pharmacy Med Name: leflunomide 20 mg tablet] 30 tablet 11 Sig: TAKE 1 TABLET BY MOUTH ONCE DAILY. Patient last appointment: 09/07/2022 Next Appointment: 04/19/2023 Patient Phone numbers: [phone] (home) Request is for script(s) to be escript to pharmacy. [employer] [address] [place] [address] [address] [facility] - [phone] Katherine Perez LPN documented in this encounter [facility] 12-25-2022 Note HNO ID: [id number] Author: Kym Conrad, DO Service: ? Author Type: Physician Type: Progress Notes Filed: 12/25/2022 9:26 AM Note Text: Large Joint Arthro/Inj: bilateral knee joints Informed Consent Consent Obtained: Verbal Waldo Protocol A moment to CARE was completed. [...] requesting cortisone injections. She is wearing her board member brace which is a little big due [...] at rest Rheumatolog (more content not included)... [facility] 12-25-2022 History of Present illness Narrative Associated Order(s): Large Joint Arthro/Inj: bilateral knee joints Post-Procedure Diagnose(s): Arthritis of knee Images from the original note were not included. Large Joint Arthro/Inj: bilateral knee joints Informed Consent Consent Obtained: Verbal Waldo Protocol A moment to CARE was completed. [...] requesting cortisone injections. She is wearing her board member brace which is a little big due [...] every 3 months documented in this encounter [facility] 12-16-2022 Miscellaneous Notes Received letter from [facility] informing us that prior authorization for [...] Leena Dee MA documented in this encounter [facility] 12-10-2022 Note HNO ID: [id number] Author: Miguelito Davis MD Service: ? Author Type: Physician Type: Progress Notes Filed: 01/17/2023 8:58 PM Note Text: Miguelito Davis MD Department of Orthopaedics Orthopaedics [address] [facility] [address] Dept: [phone] Dept December 10, 2022 CHIEF COMPLAINT: Follow Up of the Right Middle Finger (2 weeks 6 days post visit with Nova ) HPI Pt here for f/u. Pt states pain and swelling about the same since last visit. Prednisone did help, but did not last once course was done. Has appt with Dr. De Los Santos in 4 months for US guided injection. Pt is right hand dominant. Pt is not currently working, but has guardianship of [place]. ASSESSMENT: M79.641 Pain of right hand (primary [...] long MCP Informed Consent Consent Obtained: Verbal Waldo Protocol A moment to CARE was completed. [...] depression, anxiety) Miguelito (more content not included)... [facility] 12-02-2022 Miscellaneous Notes Return in about 3 months (around 02/27/2023), recomended in person . No answer ,lvm documented in this encounter [facility] 11-27-2022 Note HNO ID: [id number] Author: Yen Abernathy MD Service: ? Author Type: Physician Type: Progress Notes Filed: 11/27/2022 12:08 PM Note Text: Yen Abernathy MD [facility] [address], [address] [employer] [facility] [address] [place] [address] This Team Access Model visit is a virtual visit due to COVID -19 Pandemic . It required patient-provider interaction for the medical decision making as documented below. Consent was obtained to complete today's distance health visit. Germán Maritnez is a 57 year old female with [...] increase NEAT. --Topamax was stopped by his senior associate due to possible risk of cataract development [...] on an empty (more content not included)... [facility] 11-27-2022 Instructions Yen Abernathy MD - 11/27/2022 [...] when losing weight. This is why many [employer] groups are successful. Family support is also [...] per day. Low-carbohydrate diet -- Low- and itjk-zyk-tcdfvraskplm diets (eg, Atkins diet, Sportody diet) have become popular ways to lose weight quickly. With a qnqc-izw-paexapmewxil diet, you eat between 0 and 60 [...] do not contain carbohydrates. Side effects of pwcm-nxa-xzrgxifaynvs diets can include constipation, headache, bad breath, [...] are not recommended. A doctor, nurse, or jig boring machine operator for metal can help you find a safe and [...] when losing weight. This is why many [employer] groups are successful. Family support is also [...] per day. Low-carbohydrate diet -- Low- and cjqa-ynj-kkwogyqmwnoe diets (eg, Atkins diet, Sportody diet) have become popular ways to lose weight quickly. With a semz-znk-dtrieftxopai diet, you eat between 0 and 60 [...] do not contain carbohydrates. Side effects of vclo-mvw-pmsgkssighbr diets can include constipation, headache, bad breath, [...] are not recommended. A doctor, nurse, or jig boring machine operator for metal can help you find a safe and [...] when losing weight. This is why many [employer] groups are successful. Family support is also [...] per day. Low-carbohydrate diet -- Low- and nwgf-mcf-hwobusjavris diets (eg, Atkins diet, Sportody diet) have become popular ways to lose weight quickly. With a ejnx-jic-jfukqkcqmguu diet, you eat between 0 and 60 [...] do not contain carbohydrates. Side effects of uzls-mgi-swmutluyfyau diets can include constipation, headache, bad breath, [...] are not recommended. A doctor, nurse, or jig boring machine operator for metal can help you find a safe and effective way to lose weight and keep it off. Adapted from [facility] My opinion 3 hour Rule: -last meal [...] like a plant based meal replacement called HealthTap Nutrition - can mix w froz berries [...] examples of apps to track calories are beRecruitedPAL, LOSE IT. Some patient have found FOODUCATE to help with decisions around food, however choose apps that best suits you. documented in this encounter [facility] 11-27-2022 History of Present illness Narrative Images from the original note were not included. Yen Abernathy MD [facility] [address], [address] [employer] [facility] [address] [place] [address] This Team Access Model visit is a [...] increase NEAT. --Topamax was stopped by his senior associate due to possible risk of cataract development [...] resistance/metabolic syndrome Several stressors working on her grandSP3H custody -Recent foot fracture currently working with [...] as visual guide to low carb food: Links Global Limit carb consumption to 80- 100 grams [...] examples of apps to track calories are beRecruitedPAL, LOSE IT. Some patient have found FOODUCATE [...] milk) This note was partially generated using The Point voice recognition system, and there may be [...] Past Social History. documented in this encounter [facility] 11-26-2022 Note HNO ID: [id number] Author: Kym Conrad, DO Service: ? Author [...] AP BOTH/PA KEITH (more content not included)... [facility] 11-26-2022 History of Present illness [...] IMPRESSION: Degenerative changes as detailed in report. Welder Gun: TOREY Transcribe Date/Time: May 11 2022 3:06P Dictated by : SOHAIL MARKS MD ... Last MRI Knee - Impression Only MRI KNEE WO IVCON LT Exam End: 11/12/2022 11:23 AM (Final result) Impression: IMPRESSION: SEVERE MEDIAL COMPARTMENT OSTEOARTHRITIS WITH SUBCHONDRAL TRABECULAR IMPACTION AND MENISCAL TEAR. ... Impression: Encounter Diagnosis ICD-10-CM 1. Chronic pain of right knee M25.561 CUSTOM BRACE - GARDENER G89.29 2. Arthritis of knee M17.10 Today, in detail, through a thorough evaluation, we discussed possible etiologies of pain and our plans for further diagnostic and therapeutic interventions. We discussed strategies for decreasing pain and improving strength, stability and motion. Patient's questions were answered in detailed. Patient verbalizes understanding and agrees with the treatment plan as discussed. Pipe Tester brace ordered for impaction 6-8 wks limited impact, ok to do bicycle and swimming Patient aware and in agreement of plan. All questions answered. documented in this encounter [facility] 11-23-2022 Miscellaneous Notes This patient gave consent [...] seven days of my reply. See the [employer] message reply for my assessment and plan. I spent a total of 5 minutes reviewing the patient's prior medical records and current request for medical advice, prescribing medications or ordering tests (if applicable), replying to the patient, and documenting the encounter. MRI results in epic. Katherine Perez LPN documented in this encounter [facility] 11-20-2022 Note HNO ID: [id number] Author: Nova Chun PA-C Service: ? Author Type: Physician Data Warehouse Consultant Type: Progress Notes Filed: 11/20/2022 3:09 PM Note Text: Nova Chun PA-C Department of Orthopaedics Orthopaedics [address] [facility] [address] Dept: [phone] Dept November 20, 2022 CHIEF COMPLAINT: Established Patient and Pain of the Right Hand Ms. Germán Martinez is a 57 year old female who presents with continued pain and swelling at her third metacarpal joint. Pain is 6/10. Patient had a corticosteroid injection with Dr. Davis 2 months ago, she reports injection was only helpful for 1 month. Previous ultrasound-guided injections by Dr. De Los Santos were helpful for almost 3 months. She [...] multiple sites, unspecified whether rheumatoid factor present ([facility]) PLAN: We discussed getting her back into Dr. De Los Santos to try a ultrasound-guided injection. In the [...] to the hand. Imaging: IMPRESSION: Mild osteoarthritis. Welder Gun: TOREY Transcribe Date/Time: Sep 11 2022 11:36A Dictated by : MELVIN SHERIFF, DO This examination was interpreted and the [...] tab day 6. (more content not included)... [facility] 11-20-2022 Note HNO ID: [id number] Author: Marianela Navarrete Ma Service: ? Author [...] swelling and pain wakes her at night. [facility] 11-20-2022 History of Present illness Narrative Nova Chun PA-C Department of Orthopaedics Orthopaedics [address] [address] Dept: [phone] Dept November 20, 2022 CHIEF COMPLAINT: Established Patient and Pain of the Right Hand Ms. Germán Martinez is a 57 year old female who presents with continued pain and swelling at her third metacarpal joint. Pain is 6/10. Patient had a corticosteroid injection with Dr. Davis 2 months ago, she reports injection was only helpful for 1 month. Previous ultrasound-guided injections by Dr. De Los Santos were helpful for almost 3 months. She [...] multiple sites, unspecified whether rheumatoid factor present ([facility]) PLAN: We discussed getting her back into Dr. De Los Santos to try a ultrasound-guided injection. In the [...] to the hand. Imaging: IMPRESSION: Mild osteoarthritis. Welder Gun: TOREY Transcribe Date/Time: Sep 11 2022 11:36A [...] anxiety) This note was partially generated using The Point voice recognition system, and there may be some incorrect words, spellings, and punctuation that were not noted in checking the note before saving. Nova Chun PA-C AMB ROOMING INTAKE FLOWSHEET DATA Pain Pain Level: 6 Description: Cutting, Numbness, Pressure, Sharp, Stiffness Duration Units: Days Frequency: Continuous Intervention/Comfort measure: Positioning Patient here today for 6 weeks 1 day post visit arthritis right 3rd finger with BP with injection given. Patient reports swelling and pain wakes her at night. documented in this encounter [facility] 11-12-2022 Note HNO ID: [id number] Author: RISHI Hernandez) Service: ? Author Type: Technologist Type: Progress [...] IV DATA: Not applicable SIGNED BY: RT David(Judy) November 12, 2022 11:09 AM [facility] 11-06-2022 Miscellaneous Notes According to referral, testing has been authorized. Patient has been notified. She was transferred to see if she could get a sooner appointment. Germán called stating that she just got off of the phone with Melani and according to Melani they have not received a request for the MRI of her knee and she saw Dr. Olsen last week. Germán states that she is in severe pain and needs something done as soon as possible. She also states that Melani told her that the office can request an expedited prior-authorization by checking a box on the PA form. Shy Roque RN documented in this encounter [facility] 10-26-2022 Miscellaneous Notes Patient sent a [employer] message requesting the following refill. Requested Prescriptions Pending Prescriptions Disp Refills metFORMIN ER (GLUCOPHAGE XR) 500 mg 24 hr tablet 180 tablet 0 Sig: Take 2 tablets by mouth daily with breakfast. Next Appointment: 11/27/2022 Patient Phone numbers: [phone] (home) Request is for script(s) to be escript to pharmacy. Leena Dee MA documented in this encounter [facility] 10-22-2022 Note HNO ID: [id number] Author: Kym Conrad, DO Service: ? Author [...] loss, nsaids, exer (more content not included)... [facility] 10-22-2022 History of Present illness [...] All questions answered. documented in this encounter [facility] 09-28-2022 Miscellaneous Notes Pharmacy sent a [employer] message requesting the following refill. Requested Prescriptions Pending Prescriptions Disp Refills semaglutide (OZEMPIC) 0.25 mg or 0.5 mg(2 mg/1.5 mL) pen 1 mL 0 Sig: Inject 0.25 mg subcutaneously one time a week for 28 days. Next Appointment: 11/27/2022 Patient Phone numbers: [phone] (home) Request is for script(s) to be escript to pharmacy. Fidelina Garay Ma documented in this encounter [facility] 09-10-2022 History of Present illness Narrative Associated Order(s): Small Joint Arthro/Inj: L long MCP Post-Procedure Diagnose(s): Arthritis of finger of right hand Miguelito Davis MD Department of Orthopaedics Orthopaedics [address] [address] Dept: [phone] Dept September 10, 2022 CHIEF COMPLAINT: Established Patient and Pain of the Right Hand and Last seen 08/18/21 S/P Left thumb CMC arthroplasty (with LRTI and pinning ) HPI Intake information documented in the prior visit with Dr. Fish on 09/07/22 virtual visit. Patient states she is having pain on the top of her hand at her 3rd MC. Patient states she was Dr. De Los Santos on 04/22/22 and he gave her an [...] long MCP Informed Consent Consent Obtained: Verbal Waldo Protocol A moment to CARE was completed. [...] completed when applicable Imaging: IMPRESSION: Mild osteoarthritis. Welder Gun: TOREY Transcribe Date/Time: Sep 11 2022 11:36A [...] (see HPI) Psych (no depression, anxiety) Miguelito Davis MD documented in this encounter [facility] 09-07-2022 History of Present illness Narrative VIRTUAL VISIT PROGRESS NOTE This is a virtual visit using One [employer] video visit. It required patient-provider interaction for the medical decision making as documented below. Germán Martinez is a 57 year old female seen for RA. Lost more weight. On Ozempic. Doing well. Denies NSAIDs. Just taking Flexeril. Just recovered from covid [place] Thumb surgery [facility] CMC 1 left- doing well, in [...] which included preparing to see the patient, guws-bn-verq patient care, completing clinical documentation, obtaining and/or [...] - my chart documented in this encounter [facility] 08-27-2022 Instructions Yen Abernathy MD - 08/27/2022 [...] per day. Low-carbohydrate diet -- Low- and lzmk-cxx-mndokvbwicyf diets (eg, Atkins diet, [place] diet) have become popular ways to lose weight quickly. With a pcbf-ieo-jxqlxjdxtegp diet, you eat between 0 and 60 [...] do not contain carbohydrates. Side effects of lafz-xoa-rajsyvzjlrpy diets can include constipation, headache, bad breath, [...] are not recommended. A doctor, nurse, or jig boring machine operator for metal can help you find a safe and effective way to lose weight and keep it off. Adapted from [facility] My opinion 3 hour Rule: [...] as visual guide to low carb food: Https://www.dietdoctor.Lenda/ ( visual guide for low carb diet) [...] examples of apps to track calories are beRecruitedPAL, LOSE IT. Some patient have found FOODUCATE to help with decisions around food, however choose apps that best suits you. - Rx metformin, risks and benefits discussed at length. The pt understands the potential side effects (including gastrointestinal problems) and is instructed to increase the dose as tolerated. documented in this encounter [facility] 08-27-2022 History of Present illness Narrative Images from the original note were not included. Yen Abernathy MD [facility] [address] [place] [address], [facility] [address] [place] [address] This Team Access Model visit is a [...] increase NEAT. --Topamax was stopped by his senior associate due to possible risk of cataract development. [...] resistance/metabolic syndrome Several stressors working on her grandSP3H custody Overall she is doing amazing congratulated [...] as visual guide to low carb food: Links Global Limit carb consumption to 80- 100 grams [...] examples of apps to track calories are MyWellcorePAL, LOSE IT. Some patient have found FOODUCATE [...] like a plant based meal replacement called HealthTap Nutrition - can mix w froz berries and almond milk) This note was partially generated using The Point voice recognition system, and there may be some incorrect words, spellings, and punctuation that were not noted in checking the note before saving History Review: I have reviewed and modified as needed, the following during this visit: Allergies, Past Medical History, Past Surgical History, Past Family History, Past Social History. documented in this encounter [facility] 08-27-2022 History of Present illness Narrative Follow [...] multiple sites, unspecified whether rheumatoid factor present ([facility]) M06.9 2. Arthritis of knee M17.10 3. [...] discussed. Discussed injection in mcp joint, dr de los santos appt pending as patient did not want to travel all the way up there for her injection. She has seen Dr. Davis in the past for her hand and elected proceed with seeing him to see if he would do the MCP injection in the office instead. Will see if dr davis will do mcp injection/d/w staff and will [...] 8 wk f/u documented in this encounter [facility] 07-08-2022 Miscellaneous Notes Patient sent a [employer] message requesting the following refill. Requested Prescriptions Pending Prescriptions Disp Refills metFORMIN ER (GLUCOPHAGE XR) 500 mg 24 hr tablet 180 tablet 0 Sig: Take 2 tablets by mouth daily with breakfast. topiramate (TOPAMAX) 50 mg tablet 180 tablet 0 Sig: Take 1 tablet by mouth twice daily. Next Appointment: 08/27/2022 Patient Phone numbers: [phone] (home) Request is for script(s) to be escript to pharmacy. Matthew Gambino MA documented in this encounter [facility] 07-02-2022 History of Present illness Narrative Images [...] ongoing Frequency: Intermittent Intervention/Comfort measure: Exercise HPI: Germán Martinez is a 57 year [...] IMPRESSION: Degenerative changes as detailed in report. Welder Gun: TOREY Transcribe Date/Time: May 11 2022 3:06P [...] knee at all. documented in this encounter [facility] 06-10-2022 Miscellaneous Notes Called to schedule for 10 Wk F/U (around 08/19), no answer, LVM. documented in this encounter [facility] 06-10-2022 Instructions Velma Shook APRN.POWER PRESS TENDER - 06/10/2022 12:51 PM EDT Dear Juan: It was a pleasure to care [...] at or call local emergency services at 358. What other information should I know? Keep all appointments with your doctor and the laboratory. Do not let anyone else take your medication. Topiramate use needs to be monitored closely. Prescriptions may be refilled only a limited number of times. Keep a written list of all of your prescription and nonprescription (mawu-kny-gxkldyg) medicines, in addition to vitamins, minerals, or [...] a missed one. Sources Pubmed Health: http://www.ncbi.nlm.nih.gov/pubmed health/BWW5512124/ Drugs.com http://www.drugs.com/pro/topiramat e.html documented in this encounter [facility] 06-10-2022 History of Present illness Narrative Images from the original note were not included. Obesity Medicine Followup Note This Team Access Model visit is a virtual visit due to COVID -19 Pandemic . It required patient-provider interaction for the medical decision making as documented below. Consent was obtained to complete today's [facility] emergency department health visit. 06/10/2022 Patient Summary: is 57 year old Female who presents for follow-up evaluation of her obesity and related complications to the [facility]ariat[facility] Metabolic [place]. In our previous visits we have outlined [...] 05/19/2022 1.82 1.00 - 4.00 k/uL Final George% 05/19/2022 6.3 % Final Abs George 05/19/2022 0.66 <0.87 k/uL Final Eosin% 05/19/2022 [...] - Behavioral and pharmacological intervention Velma Shook APRN.DNP Patient is doing well otherwise, continues lifestyle modification. Patient remains motivated to lose weight. This note was partially generated using The Point voice recognition system, and there may be [...] mass with weight loss. Velma Shook APRN [facility] Obesity Medicine I spent a total of 25 minutes on the date of the service which included preparing to see the patient, dkts-vz-qsvd patient care, completing clinical documentation, obtaining and/or [...] given to patient. documented in this encounter [facility] 06-08-2022 Miscellaneous Notes Patient called and scheduled Matthew Gambino MA June 08, 2022 documented in this encounter [facility] 06-03-2022 Miscellaneous Notes Sirisha Preciado Sent me an mywaves chat about patient leaving a voice message but wasn't sure what she needed. I called both numbers listed for the patient, no answer, left voice message on both lines for patient to call back Matthew Gambino MA June 03, 2022 documented in this encounter [facility] 05-20-2022 Miscellaneous Notes I called and left a voice message for patient to call back and schedule an appointment. Sent One Hour Translationhart message as well Matthew Gambino MA May 20, 2022 Please have her see Velma FALK documented in this encounter [facility] 05-19-2022 Miscellaneous Notes Labs final on chart today. documented in this encounter [facility] 05-18-2022 History of Present illness Narrative Images from the original note were not included. [facility] General Arthritis and Rheumatology Madie Main [address] [facility] [address] [place] [id number] RHEUMATOLOGY PROGRESS NOTE Patient is here for [...] ortho for right MCP injections Thumb surgery [facility] CMC 1 left- doing well, in [...] Madie Main PA-C documented in this encounter [facility] 05-11-2022 Miscellaneous Notes Addended by: STEVEN ABDI on: 05/11/2022 02:15 PM Modules accepted: Orders documented in this encounter [facility] 05-11-2022 History of Present illness Narrative Patient [...] in the evening, stairs while hiking at [place]. No pain with standing Relieving: walking, biofreeze [...] Steven Abdi MD documented in this encounter [facility] 04-24-2022 History of Present illness Narrative Images from the original note were not included. Yen Abernathy MD [facility] [address] [place] [address], [address] [employer] [employer] [address] [place] [address] Germán Martinez is a 57 year old [...] which included preparing to see the patient, glms-xa-zxrl patient care, completing clinical documentation, obtaining and/or [...] as visual guide to low carb food: CounterTack.Lenda Limit carb consumption to 80- 100 grams [...] examples of apps to track calories are beRecruitedPAL, LOSE IT. Some patient have found FOODUCATE [...] like a plant based meal replacement called HealthTap Nutrition - can mix w froz berries and almond milk) This note was partially generated using The Point voice recognition system, and there may be some incorrect words, spellings, and punctuation that were not noted in checking the note before saving documented in this encounter [facility] 04-23-2022 Instructions Yen Abernathy MD - 04/23/2022 [...] when losing weight. This is why many [employer] groups are successful. Family support is also [...] fat per day. Low-carbohydrate diet Low- and vnbe-ykq-sxtothvtdjph diets (eg, Atkins diet, [place] diet) have become popular ways to lose weight quickly. With a kdqx-mki-oelifyysnvtq diet, you eat between 0 and 60 [...] do not contain carbohydrates. Side effects of mdfx-udt-doemsbszukgp diets can include constipation, headache, bad breath, [...] are not recommended. A doctor, nurse, or jig boring machine operator for metal can help you find a safe and effective way to lose weight and keep it off. Adapted from [facility] My opinion 3 hour Rule: -last meal [...] like a plant based meal replacement called HealthTap Nutrition - can mix w froz berries [...] examples of apps to track calories are beRecruitedPAL, LOSE IT. Some patient have found FOODUCATE to help with decisions around food, however choose apps that best suits you. - Rx metformin, risks and benefits discussed at length. The pt understands the potential side effects (including gastrointestinal problems) and is instructed to increase the dose as tolerated. documented in this encounter [facility] 04-22-2022 Miscellaneous Notes Patient sent a [employer] message requesting the following refill. Pending Prescriptions Disp Refills METFORMIN ER 500 MG TABLET,EXTENDED RELEASE 24 HR 90 tablet 0 Sig: Take 1 tablet by mouth daily with breakfast. KASEY: No Next Appointment: 04/23/2022 Patient Phone numbers: [phone] (home) Request is for script(s) to be escript to pharmacy. Matthew Gambino MA documented in this encounter [facility] 04-07-2022 Miscellaneous Notes Pharmacy faxed requesting the following refill. Pending Prescriptions Disp Refills LEFLUNOMIDE 20 MG TABLET 30 tablet 2 Sig: Take 1 tablet by mouth once daily. KASEY: No Patient last appointment: 01/12/22 Next Appointment: 05/18/2022 Patient Phone numbers: [phone] (home) Request is for script(s) to be escript to pharmacy. Rhianna Harris MA documented in this encounter [facility] 03-27-2022 Miscellaneous Notes Patient wants to know if she can increase her topamax from 50 mg to 75 mg. Please advise Matthew Gambino MA March 27, 2022 documented in this encounter [facility] 03-18-2022 History of Present illness Narrative Associated [...] Reposition;Relaxation;Cold;Medicat ion;Other: See comment cortisone injection HPI: Germán Martinez is a 57 year old female Large Joint Arthro/Inj: R knee joint Informed Consent Consent Obtained: Verbal Waldo Protocol A moment to CARE was completed. [...] every 3 months documented in this encounter [facility] 02-03-2022 Miscellaneous Notes The following approved medication requests have been transmitted electronically. Signed Prescriptions Disp Refills topiramate (TOPAMAX) 25 mg tablet 90 tablet 1 Sig: Take 2 tablets by mouth once daily. Yen Abernathy MD documented in this encounter [facility] 01-30-2022 Miscellaneous Notes Patient notified and verbalized understanding. Katherine Perez LPN ----- Message from Kaelyn Fish MD sent at 01/27/2022 12:27 PM EDT ----- Lab work for arava is normal documented in this encounter [facility] 01-30-2022 Miscellaneous Notes Patient k level 3.2 kcl 10 meq for [address] Landry notified; Patient notified to follow up with pcp. documented in this encounter [facility] 01-29-2022 Miscellaneous Notes Patient message sent regarding lemon in water and abnormal taste from medications as well as follow up appt. with with Dr. Abernathy in 10 days. documented in this encounter [facility] 01-29-2022 Miscellaneous Notes Addended by: VELMA SHOOK on: 01/29/2022 02:01 PM Modules accepted: Orders documented in this encounter [facility] 01-29-2022 Instructions Velma Shook APRN.CNP - 01/29/2022 12:39 PM EDT Images from the original note were not included. Dear Juan, It was a pleasure to care [...] CALMING EMOTIONS IF INTERESTED CALL: OR EMAIL [email or web address] - topics covered include emotional eating, mindfulness, physical activity, goal setting, positive mindset, stress management, motivation commitment, basic nutrition and relaxation strategies Meal replacements: https://www.eCollect.com/food-nu trition/q02993684/6-xesa-cibo-repl acements/ Meal replacements. One option that works for some people is to use meal replacements, as in the DiRECT and Look AHEAD trials.The available options in Look AHEAD included shakes, bars, and meals from a variety of companies ([employer] HMR, [employer], and [employer]). The calorie content was 150 to 220 [...] like a plant based meal replacement called HealthTap Nutrition - can mix w froz berries [...] examples of apps to track calories are beRecruitedPAL, LOSE IT. Some patient have found FOODUCATE to help with decisions around food, however choose apps that best suits you. EXERCISE: Simple Exercises https://www.youtube.com/watch?v=pU YxcRvdal8 Chel Cisneros https://www.youCaviumube.com/watch?v=xY 9o7MRCRRG Strength training: Get stronger, leaner, healthier Strength training is an important part of an overall fitness program. Here's what strength training can do for you and how to get started. By [facility] Staff Related article Strength training: How-to video [...] repetitions means you likely are using a marketing assistant retail division weight, which will make it easier for [...] new to strength training, work with a skills trainer or other crop specialist to learn correct form and technique. [...] you're not in shape when you begin. https://www.[facility].org/healthy -lifestyle/fitness/in-depth/streng th-training/art-64084392#:~:text=S trength%20training%20may%20enhance %20your,maintain%20independence%20 as%20you%20age. Simple Exercises https://www.Quantum Immunologicsube.com/watch?v=pU YxcRvdal8 Chel Cisneros https://www.Quantum Immunologicsube.com/watch?v=xY 6t5HKLVLA Strength training: Get stronger, leaner, healthier Strength training is an important part of an overall fitness program. Here's what strength training can do for you and how to get started. By [facility] Staff Related article Strength training: How-to video [...] repetitions means you likely are using a marketing assistant retail division weight, which will make it easier for [...] new to strength training, work with a skills trainer or other crop specialist to learn correct form and technique. [...] you're not in shape when you begin. https://www.[facility].org/healthy -lifestyle/fitness/in-depth/streng th-training/art-83622415#:~:text=S trength%20training%20may%20enhance %20your,maintain%20independence%20 as%20you%20age. MEDICATIONS: Topiramate (toe pyre [...] at or call local emergency services at 133. What other information should I know? Keep all appointments with your doctor and the laboratory. Do not let anyone else take your medication. Topiramate use needs to be monitored closely. Prescriptions may be refilled only a limited number of times. Keep a written list of all of your prescription and nonprescription (tmbf-ezf-lcwmqof) medicines, in addition to vitamins, minerals, or [...] a missed one. Sources Pubmed Health: http://www.ncbi.nlm.nih.gov/pubmed health/QNS5428864/ Drugs.com http://www.drugs.com/pro/topiramat e.html Metformin 500 mg with [...] immediate medical attention. documented in this encounter [facility] 01-29-2022 History of Present illness Narrative Images [...] this patient is physically located in the [facility] during this telephone visit. The patient has verified they are in a secure location with acceptable privacy for a telehealth visit. January 29, 2022 Patient Summary: is 56 year old Female who presents for follow-up evaluation of her obesity and related complications to the [facility] [place]. In our previous visits we have outlined [...] Continue using cpap 8. Malaise and fatigue [id number] Potassium level ordered; patient on diuretic; I spent a total of 30 minutes on the date of the service which included preparing to see the patient, tcyh-hv-lixx patient care, completing clinical documentation, obtaining and/or [...] Shook APRN DNP documented in this encounter [facility] 01-28-2022 Miscellaneous Notes She can see Velma tomorrow. documented in this encounter [facility] 01-28-2022 Miscellaneous Notes Please call patient to schedule a follow up appointment with Dr. Conrad documented in this encounter [facility] 01-20-2022 Instructions Yen Abernathy MD - 01/20/2022 [...] when losing weight. This is why many [employer] groups are successful. Family support is also [...] fat per day. Low-carbohydrate diet Low- and bsqu-bdm-haetdtqvacpc diets (eg, Atkins diet, Sportody diet) have become popular ways to lose weight quickly. With a qgbx-qpr-elirnekufmnr diet, you eat between 0 and 60 [...] do not contain carbohydrates. Side effects of aote-gep-saxfrgxhzqzz diets can include constipation, headache, bad breath, [...] are not recommended. A doctor, nurse, or jig boring machine operator for metal can help you find a safe and effective way to lose weight and keep it off. Adapted from [facility] My opinion 3 hour Rule: [...] as visual guide to low carb food: Https://www.dietYornor.Lenda/ ( visual guide for low carb diet) [...] like a plant based meal replacement called HealthTap Nutrition - can mix w froz berries [...] examples of apps to track calories are beRecruitedPAL, LOSE IT. Some patient have found FOODUCATE [...] at or call local emergency services at 472. What other information should I know? Keep all appointments with your doctor and the laboratory. Do not let anyone else take your medication. Topiramate use needs to be monitored closely. Prescriptions may be refilled only a limited number of times. Keep a written list of all of your prescription and nonprescription (wwih-vmz-xqaygdk) medicines, in addition to vitamins, minerals, or [...] a missed one. Sources Pubmed Health: http://www.ncbi.nlm.nih.gov/pubmed health/WHS2747038/ Drugs.com http://www.drugs.com/pro/topiramat e.html - Rx metformin, risks [...] fat per day. Low-carbohydrate diet Low- and vomj-gng-cdrodoarlhkk diets (eg, Atkins diet, [place] diet) have become popular ways to lose weight quickly. With a htgc-rou-etawqfsjghur diet, you eat between 0 and 60 [...] do not contain carbohydrates. Side effects of shmu-fhu-oisnamfclgso diets can include constipation, headache, bad breath, [...] are not recommended. A doctor, nurse, or jig boring machine operator for metal can help you find a safe and effective way to lose weight and keep it off. Adapted from [facility] My opinion 3 hour Rule: [...] examples of apps to track calories are [employer], LOSE IT. Some patient have found FOODUCATE [...] at or call local emergency services at 779. What other information should I know? Keep all appointments with your doctor and the laboratory. Do not let anyone else take your medication. Topiramate use needs to be monitored closely. Prescriptions may be refilled only a limited number of times. Keep a written list of all of your prescription and nonprescription (qkjg-suq-rfxwmby) medicines, in addition to vitamins, minerals, or [...] a missed one. Sources Pubmed Health: http://www.ncbi.nlm.nih.gov/pubmed health/DGT6185792/ Drugs.com http://www.drugs.com/pro/topiramat e.html documented in this encounter [facility] 01-20-2022 History of Present illness Narrative Images from the original note were not included. Yen Abernathy MD [facility] [address], [address] [employer] - Fourth Floor [place] [phone] SUBJECTIVE: Germán Martinez is a 56 year [...] composite complication rate of , unstable angina, [place], DVT, PE, renal failure, and stroke occurred [...] which included preparing to see the patient, lkje-ho-xkbh patient care, completing clinical documentation, obtaining and/or [...] as visual guide to low carb food: Links Global Limit carb consumption to 80- 100 grams [...] examples of apps to track calories are MyWellcorePAL, LOSE IT. Some patient have found FOODUCATE [...] like a plant based meal replacement called HealthTap Nutrition - can mix w froz berries and almond milk) This note was partially generated using [employer] Point voice recognition system, and there may be some incorrect words, spellings, and punctuation that were not noted in checking the note before saving documented in this encounter [facility] 01-20-2022 Nurse Note Neck 17 Waist 49 documented in this encounter [facility] 01-02-2022 Miscellaneous Notes The following approved medication requests have been transmitted electronically. Signed Prescriptions Disp Refills pregabalin (LYRICA) 25 mg capsule 60 capsule 0 Sig: Take 1 capsule by mouth twice daily for 30 days. HAYDEE Class: C-V KASEY: No Authorizing Provider: VIOLET FLOYD PA-C documented in this encounter [facility] 09-02-2021 Note HNO ID: [id number] Author: Tea Andujar OT/L Service: ? Author [...] to 09/02/2021 and treatment included: Therapeutic exercise, Self-alf management, Orthotics management and training, Modalities and [...] Left Limitation Thumb AROM: Left Limitation Strength: [employer] Position 2;Pinch Meter Sensation: Reports tingling or numbness (scores normal with SW) Hand Strength R [employer] Position 2 (lbs): 53 lbs L [employer] Position 2 (lbs): 31 lbs R Lateral [...] and isolated blocking 3: medium soft putty wildlife technician digit ext roll, digit flexion tridpod pinch and thumb flex ext 4: with medium soft putty lsateral pinch and thumb adduction 5: educated in continuing 6: objective measurements take n and recorded 7: educated on resuming normal activity and progression of HEP Skilled Intervention: Patient was educated in proper exercise technique and purpose for exercises. Skilled judgment was (more content not included)... [facility] 08-28-2021 Note HNO ID: [id number] Author: Tea Andujar OT/Abiel Service: ? Author [...] for exercises modalities PLAN FOR NEXT VISIT: NE anticipate discharge SUBJECTIVE: Pt reporting she has [...] Exercise Treatment Minutes: 40 Tea Andujar OT/Abiel [facility] 08-21-2021 Note HNO ID: [id number] Author: SOFY Escobar Service: ? Author Type: Occupational Therapist Type: [...] gliding and isolated blocking 3: soft putty wildlife technician digit extension roll, digit flexion tripod pinch 4: with 1# weight wrist flex wrist ext dev and sup pro 5: issued silicone instructed in wear schedule and precautions Skilled Intervention: Patient was educated in proper exercise technique and purpose for exercises. Billing Therapeutic Exercise Treatment Minutes: 40 Tea Andujar OT/Abiel [facility] 08-13-2021 History of Present illness Narrative Radiology [...] 2021 9:00 AM documented in this encounter [facility] 08-12-2021 Note HNO ID: [id number] Author: Tea Andujar OT/L Service: ? Author [...] gliding and isolated blocking 3: soft sponge wildlife technician manipulated and roll and flower picker 4: thumb flex ext opposition and thumb flex ext 5: issued sized c compression sleeve and coban 6: sponge pieces flower picker and set down 7: scar and retrograde massage Skilled Intervention: Patient was educated in proper exercise technique and purpose for exercises. Skilled judgment was provided in selection of appropriate interventions. Billing Therapeutic Exercise Treatment Minutes: 44 Tea Andujar OT/Abiel [facility] 08-05-2021 Note HNO ID: [id number] Author: Tea Andujar OT/Abiel Service: ? Author [...] decrease in pain in Left wrist to /10 with basic self-care tasks, home management tasks [...] Planned Treatment Interventions: Custom orthosis fabrication;Therapeutic exercise (13014);Manual therapy (22206);Self-alf management (94371);Fluidotherapy (99972) PLAN FOR NEXT VISIT: assess tolerance to [...] and As needed (more content not included)... [facility] 06-30-2021 Note HNO ID: [id number] Author: Mayte Schultz, OT/L Service: ? Author Type: Occupational Therapist Type: Progress Notes Filed: 06/30/2021 6:30 PM Note Text: Episode Visit Count: 1 Therapist That Will Oversee The Plan Of Care: kenia Start of Care Date: 06/30/21 Onset Date: 06/30/18 Plan of Care Certification Date: 06/30/21 Next Certification Due Date: 08/29/21 Patient Identified by Name and Date of : Yes [facility] OCCUPATIONAL THERAPY EVALUATION [...] Planned Treatment Interventions: Custom orthosis fabrication;Therapeutic exercise (29148);Self-alf management (51777);Orthotics management and training (04091,08656);Patient/Family/Careg iver Education;Fluidotherapy (47360) PLAN FOR NEXT VISIT: check fit of [...] Conditions Comments: bilateral metatsrsal surgery Preferred Language: Setswana Right or Left Handed: Right 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 [facility] documented as of this encounter (statuses as of 12/22/2021) [facility] History of Past illness Narrative* Problem Noted Date Resolved Date Pain in left wrist 06/30/2021 06/30/2021 documented as of this encounter (statuses as of 01/02/2022) [facility] History of Past illness Narrative* Problem Noted Date Resolved Date Pain in left wrist 06/30/2021 06/30/2021 documented as of this encounter (statuses as of 01/20/2022) [facility] History of Past illness Narrative* Problem Noted Date Resolved Date Pain in left wrist 06/30/2021 06/30/2021 documented as of this encounter (statuses as of 01/26/2022) [facility] History of Past illness Narrative* Problem Noted Date Resolved Date Pain in left wrist 06/30/2021 06/30/2021 documented as of this encounter (statuses as of 01/28/2022) [address]-2021 History of Past illness Narrative* Problem Noted Date Resolved Date Pain in left wrist 06/30/2021 06/30/2021 documented as of this encounter (statuses as of 01/29/2022) [address]-2021 History of Past illness Narrative* Problem Noted Date Resolved Date Pain in left wrist 06/30/2021 06/30/2021 documented as of this encounter (statuses as of 01/29/2022) [facility] History of Past illness Narrative* Problem Noted Date Resolved Date Pain in left wrist 06/30/2021 06/30/2021 documented as of this encounter (statuses as of 01/29/2022) [facility] History of Past illness Narrative* Problem Noted Date Resolved Date Pain in left wrist 06/30/2021 06/30/2021 documented as of this encounter (statuses as of 01/30/2022) [facility] History of Past illness Narrative* Problem Noted Date Resolved Date Pain in left wrist 06/30/2021 06/30/2021 documented as of this encounter (statuses as of 01/30/2022) [facility] History of Past illness Narrative* Problem Noted Date Resolved Date Pain in left wrist 06/30/2021 06/30/2021 documented as of this encounter (statuses as of 01/30/2022) [facility] History of Past illness Narrative* Problem Noted Date Resolved Date Pain in left wrist 06/30/2021 06/30/2021 documented as of this encounter (statuses as of 02/02/2022) [facility] History of Past illness Narrative* Problem Noted Date Resolved Date Pain in left wrist 06/30/2021 06/30/2021 documented as of this encounter (statuses as of 02/03/2022) [facility] History of Past illness Narrative* Problem Noted Date Resolved Date Pain in left wrist 06/30/2021 06/30/2021 documented as of this encounter (statuses as of 03/21/2022) [address]-2021 History of Past illness Narrative* Problem Noted Date Resolved Date Pain in left wrist 06/30/2021 06/30/2021 documented as of this encounter (statuses as of 03/26/2022) [address]-2021 History of Past illness Narrative* Problem Noted Date Resolved Date Pain in left wrist 06/30/2021 06/30/2021 documented as of this encounter (statuses as of 03/27/2022) [address]-2021 History of Past illness Narrative* Problem Noted Date Resolved Date Pain in left wrist 06/30/2021 06/30/2021 documented as of this encounter (statuses as of 04/07/2022) [facility] History of Past illness Narrative* Problem Noted Date Resolved Date Pain in left wrist 06/30/2021 06/30/2021 documented as of this encounter (statuses as of 04/09/2022) [facility] History of Past illness Narrative* Problem Noted Date Resolved Date Pain in left wrist 06/30/2021 06/30/2021 documented as of this encounter (statuses as of 04/22/2022) [facility] History of Past illness Narrative* Problem Noted Date Resolved Date Pain in left wrist 06/30/2021 06/30/2021 documented as of this encounter (statuses as of 04/24/2022) [facility] History of Past illness Narrative* Problem Noted Date Resolved Date Pain in left wrist 06/30/2021 06/30/2021 documented as of this encounter (statuses as of 05/11/2022) [facility] History of Past illness Narrative* Problem Noted Date Resolved Date Pain in left wrist 06/30/2021 06/30/2021 documented as of this encounter (statuses as of 05/18/2022) [address]21 History of Past illness Narrative* Problem Noted Date Resolved Date Pain in left wrist 06/30/2021 06/30/2021 documented as of this encounter (statuses as of 05/20/2022) [address]-2021 History of Past illness Narrative* Problem Noted Date Resolved Date Pain in left wrist 06/30/2021 06/30/2021 documented as of this encounter (statuses as of 05/20/2022) [facility] of Past illness Narrative* Problem Noted Date Resolved Date Pain in left wrist 06/30/2021 06/30/2021 documented as of this encounter (statuses as of 06/03/2022) [facility] History of Past illness Narrative* Problem Noted Date Resolved Date Pain in left wrist 06/30/2021 06/30/2021 documented as of this encounter (statuses as of 06/08/2022) [facility] History of Past illness Narrative* Problem Noted Date Resolved Date Pain in left wrist 06/30/2021 06/30/2021 documented as of this encounter (statuses as of 06/10/2022) [facility] History of Past illness Narrative* Problem Noted Date Resolved Date Pain in left wrist 06/30/2021 06/30/2021 documented as of this encounter (statuses as of 06/10/2022) [facility] History of Past illness Narrative* Problem Noted Date Resolved Date Pain in left wrist 06/30/2021 06/30/2021 documented as of this encounter (statuses as of 07/02/2022) [facility] History of Past illness Narrative* Problem Noted Date Resolved Date Pain in left wrist 06/30/2021 06/30/2021 documented as of this encounter (statuses as of 07/08/2022) [address]-2021 History of Past illness Narrative* Problem Noted Date Resolved Date Pain in left wrist 06/30/2021 06/30/2021 documented as of this encounter (statuses as of 08/27/2022) [facility] History of Past illness Narrative* Problem Noted Date Resolved Date Pain in left wrist 06/30/2021 06/30/2021 documented as of this encounter (statuses as of 08/27/2022) [facility] History of Past illness Narrative* Problem Noted Date Resolved Date Pain in left wrist 06/30/2021 06/30/2021 documented as of this encounter (statuses as of 09/02/2022) [address]2021 History of Past illness Narrative* Problem Noted Date Resolved Date Pain in left wrist 06/30/2021 06/30/2021 documented as of this encounter (statuses as of 09/07/2022) [address]11-2021 History of Past illness Narrative* Problem Noted Date Resolved Date Pain in left wrist 06/30/2021 06/30/2021 documented as of this encounter (statuses as of 09/28/2022) [address]11-2021 History of Past illness Narrative* Problem Noted Date Resolved Date Pain in left wrist 06/30/2021 06/30/2021 documented as of this encounter (statuses as of 10/09/2022) [facility]10-11-2021 History of Past illness Narrative* Problem Noted Date Resolved Date Pain in left wrist 06/30/2021 06/30/2021 documented as of this encounter (statuses as of 10/22/2022) [address]11-2021 History of Past illness Narrative* Problem Noted Date Resolved Date Pain in left wrist 06/30/2021 06/30/2021 documented as of this encounter (statuses as of 10/26/2022) [facility]10-11-2021 History of Past illness Narrative* Problem Noted Date Resolved Date Pain in left wrist 06/30/2021 06/30/2021 documented as of this encounter (statuses as of 11/06/2022) [address]11-2021 History of Past illness Narrative* Problem Noted Date Resolved Date Pain in left wrist 06/30/2021 06/30/2021 documented as of this encounter (statuses as of 11/20/2022) [address]11-2021 History of Past illness Narrative* Problem Noted Date Resolved Date Pain in left wrist 06/30/2021 06/30/2021 documented as of this encounter (statuses as of 11/23/2022) [facility]10-11-2021 History of Past illness Narrative* Problem Noted Date Resolved Date Pain in left wrist 06/30/2021 06/30/2021 documented as of this encounter (statuses as of 11/26/2022) [address]11-2021 History of Past illness Narrative* Problem Noted Date Resolved Date Pain in left wrist 06/30/2021 06/30/2021 documented as of this encounter (statuses as of 11/27/2022) [facility]11-2021 History of Past illness Narrative* Problem Noted Date Resolved Date Pain in left wrist 06/30/2021 06/30/2021 documented as of this encounter (statuses as of 12/02/2022) [facility]-2021 History of Past illness Narrative* Problem Noted Date Resolved Date Pain in left wrist 06/30/2021 06/30/2021 documented as of this encounter (statuses as of 12/16/2022) [facility]2021 History of Past illness Narrative* Problem Noted Date Resolved Date Pain in left wrist 06/30/2021 06/30/2021 documented as of this encounter (statuses as of 12/25/2022) [facility]2021 History of Past illness Narrative* Problem Noted Date Resolved Date Pain in left wrist 06/30/2021 06/30/2021 documented as of this encounter (statuses as of 01/02/2023) [facility]2021 History of Past illness Narrative* Problem Noted Date Resolved Date Pain in left wrist 06/30/2021 06/30/2021 documented as of this encounter (statuses as of 01/07/2023) [facility]2021 History of Past illness Narrative* Problem Noted Date Resolved Date Pain in left wrist 06/30/2021 06/30/2021 documented as of this encounter (statuses as of 01/20/2023) [facility]-2021 History of Past illness Narrative* Problem Noted Date Resolved Date Pain in left wrist 06/30/2021 06/30/2021 documented as of this encounter (statuses as of 01/26/2023) [facility]2021 History of Past illness Narrative* Problem Noted Date Resolved Date Pain in left wrist 06/30/2021 06/30/2021 documented as of this encounter (statuses as of 01/29/2023) [facility]2021 History of Past illness Narrative* Problem Noted Date Resolved Date Pain in left wrist 06/30/2021 06/30/2021 documented as of this encounter (statuses as of 03/08/2023) [address]11-2021 History of Past illness Narrative* Problem Noted Date Resolved Date Pain in left wrist 06/30/2021 06/30/2021 documented as of this encounter (statuses as of 03/08/2023) [address]11-2021 History of Past illness Narrative* Problem Noted Date Resolved Date Pain in left wrist 06/30/2021 06/30/2021 documented as of this encounter (statuses as of 03/09/2023) [address]11-2021 History of Past illness Narrative* Problem Noted Date Resolved Date Pain in left wrist 06/30/2021 06/30/2021 documented as of this encounter (statuses as of 03/10/2023) [facility]20[facility] History of Past illness Narrative* Problem Noted Date Resolved Date Pain in left wrist 06/30/2021 06/30/2021 documented as of this encounter (statuses as of 03/15/2023) [address]11-2021 History of Past illness Narrative* Problem Noted Date Resolved Date Pain in left wrist 06/30/2021 06/30/2021 documented as of this encounter (statuses as of 03/18/2023) [facility]2021 History of Past illness Narrative* Problem Noted Date Resolved Date Pain in left wrist 06/30/2021 06/30/2021 documented as of this encounter (statuses as of 03/26/2023) [facility]-2021 History of Past illness Narrative* Problem Noted Date Diagnosed Date Resolved Date Pain in left wrist 06/30/2021 documented as of this encounter (statuses as of 03/30/2023) [facility]-2021 History of Past illness Narrative* Problem Noted Date Diagnosed Date Resolved Date Pain in left wrist 06/30/2021 documented as of this encounter (statuses as of 04/02/2023) [address]11-2021 History of Past illness Narrative* Problem Noted Date Diagnosed Date Resolved Date Pain in left wrist 06/30/2021 documented as of this encounter (statuses as of 05/10/2023) [address]11-2021 History of Past illness Narrative* Problem Noted Date Diagnosed Date Resolved Date Pain in left wrist 06/30/2021 1 documented as of this encounter (statuses as of 05/11/2023) [facility]-2021 History of Past illness Narrative* Problem Noted Date Diagnosed Date Resolved Date Pain in left wrist 06/30/2021 1 documented as of this encounter (statuses as of 06/10/2023) [facility]2021 History of Past illness Narrative* Problem Noted Date Diagnosed Date Resolved Date Pain in left wrist 06/30/2021 1 documented as of this encounter (statuses as of 07/03/2023) [facility]2021 History of Past illness Narrative* Problem Noted Date Diagnosed Date Resolved Date Pain in left wrist 06/30/2021 1 documented as of this encounter (statuses as of 07/25/2023) [facility]2021 History of Past illness Narrative* Problem Noted Date Diagnosed Date Resolved Date Pain in left wrist 06/30/2021 1 documented as of this encounter (statuses as of 08/10/2023) [facility]2021 History of Past illness Narrative* Problem Noted Date Diagnosed Date Resolved Date Pain in left wrist 06/30/2021 1 documented as of this encounter (statuses as of 08/11/2023) [facility]2021 History of Past illness Narrative* Problem Noted Date Diagnosed Date Resolved Date Pain in left wrist 06/30/2021 1 documented as of this encounter (statuses as of 08/30/2023) [facility]2021 History of Past illness Narrative* Problem Noted Date Diagnosed Date Resolved Date Pain in left wrist 06/30/2021 1 documented as of this encounter (statuses as of 09/06/2023) [facility]11-2021 History of Past illness Narrative* Problem Noted Date Diagnosed Date Resolved Date Pain in left wrist 06/30/2021 1 documented as of this encounter (statuses as of 11/01/2023) [place] [address]-11-2021 History of Past illness Narrative* Problem Noted Date Diagnosed Date Resolved Date Pain in left wrist 06/30/2021 documented as of this encounter (statuses as of 11/05/2023) [facility]09-29-2021 NoteHNO ID: [id number] Author: Anant Padilla APRN.COMPRESSOR REPAIRER Service: Anesthesiology Author Type: Nurse Winter Intern Type: Anesthesia Procedure Notes Filed: 06/18/2021 11:11 AM Note Text: ANESTHESIOLOGY PROCEDURE NOTE Airway General Information Procedure Start Time/Medication Administration: 06/18/2021 10:55 AM Procedure End Time: 06/18/2021 10:58 AM Patient location during procedure: OR Timeout Performed Pre-procedure: timeout performed Consent Obtained: Yes Patient identity confirmed: arm band, 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 Author Type: Anesthesiologist Type: [...] pain management/at surgeon's request Staffing Anesthesiologist: Ananda De Los Santos MD Performed by: anesthesiologist Preparation Sterility Preparation: [...] (5 mg/mL) injection, 15 mL SIGNATURE: Ananda De Los Santos MD PATIENT NAME: Germán Martinez DATE: June 18, 2021 TIME: 10:27 AM [facility]: [id number] [place] [facility]* Diagnosis Primary osteoarthritis of first carpometacarpal joint of left hand Primary localized osteoarthrosis, hand documented in this encounter [facility] note* Diagnosis Class 3 severe obesity with [...] surveillance and counseling documented in this encounter [facility] note* Diagnosis Class 2 obesity due to excess calories without serious comorbidity in adult, unspecified BMI- Primary Dietary counseling and surveillance Dietary surveillance and counseling BMI 37.0-37.9, adult Body Mass Index 37.0-37.9, adult Primary hypertension Unspecified essential hypertension Mixed hyperlipidemia Hypothyroidism, unspecified type DUNG (obstructive sleep apnea) Obstructive sleep apnea (adult) (pediatric) documented in this encounter [facility] note* Diagnosis Arthritis of knee- Primary Unspecified arthropathy, lower leg documented in this encounter [facility] note* Diagnosis Class 3 severe obesity with [...] Index 37.0-37.9, adult documented in this encounter [facility] note* Diagnosis Acute pain of left knee- Primary Pes anserine bursitis Pes anserinus tendinitis or bursitis [facility] [place] [facility]* Diagnosis Rheumatoid arthritis involving multiple sites, unspecified whether rheumatoid factor present (HCC)- Primary High risk medication use Encounter for long-term (current) use of other medications Primary osteoarthritis of both knees Primary localized osteoarthrosis, lower leg [facility] [place] [facility]* Diagnosis Class 3 severe obesity due to excess calories in adult, unspecified BMI, unspecified whether serious comorbidity present (HCC)- Primary Dietary counseling and surveillance Dietary surveillance and counseling BMI 36.0-36.9,adult Body Mass Index 36.0-36.9, adult Primary hypertension Unspecified essential hypertension Obstructive sleep apnea syndrome Obstructive sleep apnea (adult) (pediatric) Acquired hypothyroidism Unspecified hypothyroidism [facility] [place] [facility]* Diagnosis Chronic pain of left knee- Primary Pain in joint, lower leg Arthritis of knee Unspecified arthropathy, lower leg Chronic pain of right knee [facility] [place] [facility]* Diagnosis Class 3 severe obesity with serious comorbidity in adult, unspecified BMI, unspecified obesity type (HCC) Mixed hyperlipidemia Prediabetes Other abnormal glucose [facility] [place] [facility] Diagnosis Rheumatoid arthritis involving multiple sites, unspecified whether rheumatoid factor present (HCC)- Primary Arthritis of knee Unspecified arthropathy, lower leg Arthritis of finger of right hand documented in this encounter [facility] note* Diagnosis Class 3 severe obesity with serious comorbidity in adult, unspecified BMI, unspecified obesity type (HCC)- Primary Prediabetes Other abnormal glucose Obstructive sleep apnea syndrome Obstructive sleep apnea (adult) (pediatric) Primary hypertension Unspecified essential hypertension Dietary counseling and surveillance Dietary surveillance and counseling Body mass index 40.0-44.9, adult (HCC) Body Mass Index 40.0-44.9, adult Acquired hypothyroidism Unspecified hypothyroidism [facility] [place] [facility]* Diagnosis Rheumatoid arthritis involving multiple sites, unspecified whether rheumatoid factor present ([facility]) High risk medication use Encounter for long-term (current) use of other medications Primary osteoarthritis of both knees Primary localized osteoarthrosis, lower leg documented in this encounter [facility] note* Diagnosis Class 3 severe obesity with serious comorbidity in adult, unspecified BMI, unspecified obesity type (HCC) Prediabetes Other abnormal glucose documented in this encounter [facility] note* Diagnosis Arthritis of finger of right hand- Primary [facility] [place] [facility] Diagnosis Chronic pain of left knee- Primary Pain in joint, lower leg Tear of medial meniscus of left knee, current, unspecified tear type, initial encounter documented [facility] this [facility] [place] [facility]* Diagnosis Arthritis of finger of right hand- Primary Rheumatoid arthritis involving multiple sites, unspecified whether rheumatoid factor present ([facility]) documented in this encounter [facility] note* Diagnosis Abnormal MRI, knee- Primary Nonspecific (abnormal) findings on radiological and other examination of musculoskeletal system [facility] [place] [facility] Diagnosis Chronic pain of right knee- Primary Arthritis of knee Unspecified arthropathy, lower leg [facility] [place] [facility]* Diagnosis Class 3 severe obesity with serious comorbidity in adult, unspecified BMI, unspecified obesity type (HCC)- Primary Obstructive sleep apnea syndrome Obstructive sleep apnea (adult) (pediatric) Body mass index 40.0-44.9, adult (HCC) Body Mass Index 40.0-44.9, adult Mixed hyperlipidemia Primary hypertension Unspecified essential hypertension Prediabetes Other abnormal glucose Dietary counseling and surveillance Dietary surveillance and counseling documented in this encounter [facility] note* Diagnosis Arthritis of knee- Primary Unspecified arthropathy, lower leg [facility] [place] [facility]* Diagnosis Class 3 severe obesity with serious comorbidity in adult, unspecified BMI, unspecified obesity type (HCC) Mixed hyperlipidemia Prediabetes Other abnormal glucose [facility] [place] [facility]* Diagnosis Class 3 severe obesity with serious comorbidity in adult, unspecified BMI, unspecified obesity type (HCC)- Primary Mixed hyperlipidemia Prediabetes Other abnormal glucose Obstructive sleep apnea syndrome Obstructive sleep apnea (adult) (pediatric) Body mass index 40.0-44.9, adult (HCC) Body Mass Index 40.0-44.9, adult Dietary counseling and surveillance Dietary surveillance and counseling Primary hypertension Unspecified essential hypertension [facility] [place] [facility]* Diagnosis Class 3 severe obesity with serious comorbidity in adult, unspecified BMI, unspecified obesity type (HCC)- Primary [facility] [place] [facility]* Diagnosis Class 3 severe obesity with [...] Dysmetabolic Syndrome X documented [facility] [place] [facility]* Diagnosis Rheumatoid arthritis involving multiple sites, unspecified whether rheumatoid factor present (HCC)- Primary Pain in joint, multiple sites High risk medication use Encounter for long-term (current) use of other medications [facility] [place] [facility]* Diagnosis Pain of right hand- Primary Pain in limb Arthritis of finger of right hand [facility] [place] [facility]* Diagnosis Body mass index 40.0-44.9, adult (HCC) Body Mass Index 40.0-44.9, adult Prediabetes Other abnormal glucose Class 3 severe obesity with serious comorbidity in adult, unspecified BMI, unspecified obesity type (HCC) documented [facility] [place] [facility]* Diagnosis Class 3 severe obesity with serious comorbidity in adult, unspecified BMI, unspecified obesity type (HCC) Body mass index 40.0-44.9, adult (HCC) Body Mass Index 40.0-44.9, adult Prediabetes Other abnormal glucose [facility] [place] [facility]* Diagnosis Class 3 severe obesity with serious comorbidity in adult, unspecified BMI, unspecified obesity type (HCC) Mixed hyperlipidemia Prediabetes Other abnormal glucose [facility] [place] [facility]* Diagnosis Pain Generalized pain [facility] this [facility] [place] [facility]* Diagnosis Class 3 severe obesity with serious comorbidity in adult, unspecified BMI, unspecified obesity type (HCC) Body mass index 40.0-44.9, adult (HCC) Body Mass Index 40.0-44.9, adult Metabolic syndrome Dysmetabolic Syndrome X documented in this encounter [facility] note* Diagnosis Class 3 severe obesity with [...] Other abnormal glucose documented in this encounter [facility] note* Diagnosis Rheumatoid arthritis involving multiple sites, unspecified whether rheumatoid factor present ([facility]) High risk medication use Encounter for long-term (current) use of other medications Primary osteoarthritis of both knees Primary localized osteoarthrosis, lower leg documented in this encounter [facility] for referral (narrative)* Outpatient Procedure (Routine) - Closed Specialty Diagnoses / Procedures Referred By Carlotta t Referred To Contact [facility] Diagnoses Class 3 severe obesity with serious comorbidity in adult, unspecified BMI, unspecified obesity type (HCC) Procedures ECG COMPLETE ECG ROUTINE ECG W/LEAST 12 LDS W/I&R Yen Abernathy MD [address] [address] [facility] [place] [address] [place] [address] Referral ID Status Reason Start Date Expiration Date V isits Requested Visits Authorized [id number] Closed Auto-Generate d Referral 01/25/2023 01/25/2024 1 1 [facility] for referral (narrative)* Diagnostic Procedure Only (Routine) - Closed Specialty Diagnoses / Procedures Referred By Contotilio t Referred To Contact XR IMAGING Diagnoses Pain Procedures XR KNEE GENERAL 4V AP BOTH/PA BOTH/LAT/MERC RIGHT KNEE AP-WGT/LAT/BRANDONHANT Chris Marroquin MD [address] [address] [place] [id number] Referral ID Status Reason Start Date Expiration Date V isits Requested Visits Authorized [id number] Closed Auto-Generate d Referral 08/08/2021 09/07/2022 1 1 [facility] Summary Purpose Family History No Family History Records FoundNo Family History Records FoundNo Family History Records Found Advance Directives No Advanced Directives Records FoundDocuments on File Type Date Recorded Patient Hand Frame Surgical Elastic Knitter Expl anation Advance Directive(s) 06/18/2021 8:44 AM [...] ONE TIME INJECTION, 1 dose, Starting on Samanta 09/10/22 at 1637, Until Samanta 09/10/22 at 1637 Given 09/10/2022 4:37 PM EST 3 mg Hand, Left lidocaine (PF) 10 mg/mL (1 %) 0.5 mL injection (XYLOCAINE) 0.5 mL, Injection - FOR ORTHO USE ONLY, ONE TIME INJECTION, 1 dose, Starting on Samanta 09/10/22 at 1637, Until Samanta 09/10/22 at 1637 Given 09/10/2022 4:37 PM EST 0.5 mL Hand, Left Inactive Administered Medications - up to 3 most recent administrations Medication Order MAR Action Action Date Dose Rate Site BUPivacaine (PF) 0.5 % (5 mg/mL) 8 mL injection 8 mL, Injection - FOR ORTHO USE ONLY, ONE TIME INJECTION, 1 dose, Starting on Wed12/25/22 at 0925, Until Wed12/25/22 at 0925 Given 12/25/2022 9:25 AM EDT 8 mL Knee, Left BUPivacaine (PF) 0.5 % (5 mg/mL) 8 mL injection 8 mL, Injection - FOR ORTHO USE ONLY, ONE TIME INJECTION, 1 dose, Starting on Wed12/25/22 at 0925, Until Wed12/25/22 at 0925 Given 12/25/2022 9:25 AM EDT 8 mL Knee, Right triamcinolone acetonide 80 mg injection (KeNALog 40) 80 mg, Injection - FOR ORTHO USE ONLY, ONE TIME INJECTION, 1 dose, Starting on Wed12/25/22 at 0925, Until Wed12/25/22 at 0925 Given 12/25/2022 9:25 AM EDT 80 mg Knee, Left triamcinolone acetonide 80 mg injection (KeNALog 40) 80 mg, Injection - FOR ORTHO USE ONLY, ONE TIME INJECTION, 1 dose, Starting on Wed12/25/22 at 0925, Until Wed12/25/22 at 0925 Given 12/25/2022 9:25 AM EDT 80 mg [...] type (HCC) Prediabetes Yen Abernathy MD [address] [address] Referral ID Status Reason Start Date Expiration Date Visits Re quested Visits Authorized [id number] Closed 1 1 Specialty Diagnoses / Procedures Referred By Contac t Referred To Contact MR IMAGING Diagnoses Chronic pain of left knee Tear of medial meniscus of left knee, current, unspecified tear type, initial encounter Procedures MRI KNEE WO IVCON LT MRI ANY JT LOWER EXTREM W/O CONTRAST Kym Cerda, [facility] [place] [address] Mr Imaging Referral ID Status Reason Start Date Expiration Date Visits Requested Visits Authorized [id number] Pending Review Auto-Generat ed Referral 10/22/2022 11/21/2023 1 1 Specialty Diagnoses / Procedures Referred By Contac t Referred To Contact Diagnoses Class 3 severe obesity with serious comorbidity in adult, unspecified BMI, unspecified obesity type (HCC) Body mass index 40.0-44.9, adult (HCC) Prediabetes Yen Abernathy MD [address] [address] Referral ID Status Reason Start Date Expiration Date Visits Re quested Visits Authorized [id number] Closed 1 1 Specialty Diagnoses / Procedures [facility] To Contact Card[facility] Diagnoses Class 3 severe obesity with serious comorbidity in adult, unspecified BMI, unspecified obesity type (HCC) Procedures CONSULT TO CARDIOLOGY OFFICE/OUTPATIENT NEW HIGH MDM 60-74 MINUTES Yen Abernathy MD [address] [address] Referral ID Status Reason Start Date Expiration Date Visits Requested Visits Authorized [id number] Authorized PCP Requested Referral 01/28/2023 04/28/2023 1 1 Additional Source Comments INFORMATION SOURCE (unrecogn ized section and content) DATE CREATED AUTHOR AUTHOR'S ORGANIZ ATION 10/05/2023 [facility] DATE CREATED AUTHOR AUTHOR'S ORGANIZ ATION 11/07/2023 [facility] Source Comments (unrecognize d section and content) In the event this informatio n is protected by the Federal Confidentiality of Alcohol and Drug Abuse Patient Records regulations: The Federal rules restrict any use of the information to criminally investigate or prosecute any alcohol or drug abuse patient.[facility] HospitalIn the event this information is protected by the Federal Confidentiality of Alcohol and Drug Abuse Patient Records regulations: The Federal rules restrict any use of the information to criminally investigate or prosecute any alcohol or drug abuse patient.[facility] HospitalIn the event this information is protected by the Federal Confidentiality of Alcohol and Drug Abuse Patient Records regulations: The Federal rules restrict any use of the information to criminally investigate or prosecute any alcohol or drug abuse patient.[facility] HospitalIn the event this information is protected by the Federal Confidentiality of Alcohol and Drug Abuse Patient Records regulations: The Federal rules restrict any use of the information to criminally investigate or prosecute any alcohol or drug abuse patient.[facility] HospitalIn the event this information is protected by the Federal Confidentiality of Alcohol and Drug Abuse Patient Records regulations: The Federal rules restrict any use of the information to criminally investigate or prosecute any alcohol or drug abuse patient.[facility] HospitalIn the event this information is protected by the Federal Confidentiality of Alcohol and Drug Abuse Patient Records regulations: The Federal rules restrict any use of the information to criminally investigate or prosecute any alcohol or drug abuse patient.[facility] HospitalIn the event this information is protected by the Federal Confidentiality of Alcohol and Drug Abuse Patient Records regulations: The Federal rules restrict any use of the information to criminally investigate or prosecute any alcohol or drug abuse patient.[facility] HospitalIn the event this information is protected by the Federal Confidentiality of Alcohol and Drug Abuse Patient Records regulations: The Federal rules restrict any use of the information to criminally investigate or prosecute any alcohol or drug abuse patient.[facility] HospitalIn the event this information is protected by the Federal Confidentiality of Alcohol and Drug Abuse Patient Records regulations: The Federal rules restrict any use of the information to criminally investigate or prosecute any alcohol or drug abuse patient.[facility] HospitalIn the event this information is protected by the Federal Confidentiality of Alcohol and Drug Abuse Patient Records regulations: The Federal rules restrict any use of the information to criminally investigate or prosecute any alcohol or drug abuse patient.[facility] HospitalIn the event this information is protected by the Federal Confidentiality of Alcohol and Drug Abuse Patient Records regulations: The Federal rules restrict any use of the information to criminally investigate or prosecute any alcohol or drug abuse patient.[facility] HospitalIn the event this information is protected by the Federal Confidentiality of Alcohol and Drug Abuse Patient Records regulations: The Federal rules restrict any use of the information to criminally investigate or prosecute any alcohol or drug abuse patient.[facility] HospitalIn the event this information is protected by the Federal Confidentiality of Alcohol and Drug Abuse Patient Records regulations: The Federal rules restrict any use of the information to criminally investigate or prosecute any alcohol or drug abuse patient.[facility] HospitalIn the event this information is protected by the Federal Confidentiality of Alcohol and Drug Abuse Patient Records regulations: The Federal rules restrict any use of the information to criminally investigate or prosecute any alcohol or drug abuse patient.[facility] HospitalIn the event this information is protected by the Federal Confidentiality of Alcohol and Drug Abuse Patient Records regulations: The Federal rules restrict any use of the information to criminally investigate or prosecute any alcohol or drug abuse patient.[facility] HospitalIn the event this information is protected by the Federal Confidentiality of Alcohol and Drug Abuse Patient Records regulations: The Federal rules restrict any use of the information to criminally investigate or prosecute any alcohol or drug abuse patient.[facility] HospitalIn the event this information is protected by the Federal Confidentiality of Alcohol and Drug Abuse Patient Records regulations: The Federal rules restrict any use of the information to criminally investigate or prosecute any alcohol or drug abuse patient.[facility] HospitalIn the event this information is protected by the Federal Confidentiality of Alcohol and Drug Abuse Patient Records regulations: The Federal rules restrict any use of the information to criminally investigate or prosecute any alcohol or drug abuse patient.[facility] HospitalIn the event this information is protected by the Federal Confidentiality of Alcohol and Drug Abuse Patient Records regulations: The Federal rules restrict any use of the information to criminally investigate or prosecute any alcohol or drug abuse patient.[facility] HospitalIn the event this information is protected by the Federal Confidentiality of Alcohol and Drug Abuse Patient Records regulations: The Federal rules restrict any use of the information to criminally investigate or prosecute any alcohol or drug abuse patient.[facility] HospitalIn the event this information is protected by the Federal Confidentiality of Alcohol and Drug Abuse Patient Records regulations: The Federal rules restrict any use of the information to criminally investigate or prosecute any alcohol or drug abuse patient.[facility] HospitalIn the event this information is protected by the Federal Confidentiality of Alcohol and Drug Abuse Patient Records regulations: The Federal rules restrict any use of the information to criminally investigate or prosecute any alcohol or drug abuse patient.[facility] HospitalIn the event this information is protected by the Federal Confidentiality of Alcohol and Drug Abuse Patient Records regulations: The Federal rules restrict any use of the information to criminally investigate or prosecute any alcohol or drug abuse patient.[facility] HospitalIn the event this information is protected by the Federal Confidentiality of Alcohol and Drug Abuse Patient Records regulations: The Federal rules restrict any use of the information to criminally investigate or prosecute any alcohol or drug abuse patient.[facility] HospitalIn the event this information is protected by the Federal Confidentiality of Alcohol and Drug Abuse Patient Records regulations: The Federal rules restrict any use of the information to criminally investigate or prosecute any alcohol or drug abuse patient.[facility] HospitalIn the event this information is protected by the Federal Confidentiality of Alcohol and Drug Abuse Patient Records regulations: The Federal rules restrict any use of the information to criminally investigate or prosecute any alcohol or drug abuse patient.[facility] HospitalIn the event this information is protected by the Federal Confidentiality of Alcohol and Drug Abuse Patient Records regulations: The Federal rules restrict any use of the information to criminally investigate or prosecute any alcohol or drug abuse patient.[facility] HospitalIn the event this information is protected by the Federal Confidentiality of Alcohol and Drug Abuse Patient Records regulations: The Federal rules restrict any use of the information to criminally investigate or prosecute any alcohol or drug abuse patient.[facility] HospitalIn the event this information is protected by the Federal Confidentiality of Alcohol and Drug Abuse Patient Records regulations: The Federal rules restrict any use of the information to criminally investigate or prosecute any alcohol or drug abuse patient.[facility] HospitalIn the event this information is protected by the Federal Confidentiality of Alcohol and Drug Abuse Patient Records regulations: The Federal rules restrict any use of the information to criminally investigate or prosecute any alcohol or drug abuse patient.[facility] HospitalIn the event this information is protected by the Federal Confidentiality of Alcohol and Drug Abuse Patient Records regulations: The Federal rules restrict any use of the information to criminally investigate or prosecute any alcohol or drug abuse patient.[facility] HospitalIn the event this information is protected by the Federal Confidentiality of Alcohol and Drug Abuse Patient Records regulations: The Federal rules restrict any use of the information to criminally investigate or prosecute any alcohol or drug abuse patient.[facility] HospitalIn the event this information is protected by the Federal Confidentiality of Alcohol and Drug Abuse Patient Records regulations: The Federal rules restrict any use of the information to criminally investigate or prosecute any alcohol or drug abuse patient.[facility] HospitalIn the event this information is protected by the Federal Confidentiality of Alcohol and Drug Abuse Patient Records regulations: The Federal rules restrict any use of the information to criminally investigate or prosecute any alcohol or drug abuse patient.[facility] HospitalIn the event this information is protected by the Federal Confidentiality of Alcohol and Drug Abuse Patient Records regulations: The Federal rules restrict any use of the information to criminally investigate or prosecute any alcohol or drug abuse patient.[facility] HospitalIn the event this information is protected by the Federal Confidentiality of Alcohol and Drug Abuse Patient Records regulations: The Federal rules restrict any use of the information to criminally investigate or prosecute any alcohol or drug abuse patient.[facility] HospitalIn the event this information is protected by the Federal Confidentiality of Alcohol and Drug Abuse Patient Records regulations: The Federal rules restrict any use of the information to criminally investigate or prosecute any alcohol or drug abuse patient.[facility] HospitalIn the event this information is protected by the Federal Confidentiality of Alcohol and Drug Abuse Patient Records regulations: The Federal rules restrict any use of the information to criminally investigate or prosecute any alcohol or drug abuse patient.[facility] HospitalIn the event this information is protected by the Federal Confidentiality of Alcohol and Drug Abuse Patient Records regulations: The Federal rules restrict any use of the information to criminally investigate or prosecute any alcohol or drug abuse patient.[facility] HospitalIn the event this information is protected by the Federal Confidentiality of Alcohol and Drug Abuse Patient Records regulations: The Federal rules restrict any use of the information to criminally investigate or prosecute any alcohol or drug abuse patient.[facility] HospitalIn the event this information is protected by the Federal Confidentiality of Alcohol and Drug Abuse Patient Records regulations: The Federal rules restrict any use of the information to criminally investigate or prosecute any alcohol or drug abuse patient.[facility] HospitalIn the event this information is protected by the Federal Confidentiality of Alcohol and Drug Abuse Patient Records regulations: The Federal rules restrict any use of the information to criminally investigate or prosecute any alcohol or drug abuse patient.[facility] HospitalIn the event this information is protected by the Federal Confidentiality of Alcohol and Drug Abuse Patient Records regulations: The Federal rules restrict any use of the information to criminally investigate or prosecute any alcohol or drug abuse patient.[facility] HospitalIn the event this information is protected by the Federal Confidentiality of Alcohol and Drug Abuse Patient Records regulations: The Federal rules restrict any use of the information to criminally investigate or prosecute any alcohol or drug abuse patient.[facility] HospitalIn the event this information is protected by the Federal Confidentiality of Alcohol and Drug Abuse Patient Records regulations: The Federal rules restrict any use of the information to criminally investigate or prosecute any alcohol or drug abuse patient.[facility] HospitalIn the event this information is protected by the Federal Confidentiality of Alcohol and Drug Abuse Patient Records regulations: The Federal rules restrict any use of the information to criminally investigate or prosecute any alcohol or drug abuse patient.[facility] HospitalIn the event this information is protected by the Federal Confidentiality of Alcohol and Drug Abuse Patient Records regulations: The Federal rules restrict any use of the information to criminally investigate or prosecute any alcohol or drug abuse patient.[facility] HospitalIn the event this information is protected by the Federal Confidentiality of Alcohol and Drug Abuse Patient Records regulations: The Federal rules restrict any use of the information to criminally investigate or prosecute any alcohol or drug abuse patient.[facility] HospitalIn the event this information is protected by the Federal Confidentiality of Alcohol and Drug Abuse Patient Records regulations: The Federal rules restrict any use of the information to criminally investigate or prosecute any alcohol or drug abuse patient.[facility] HospitalIn the event this information is protected by the Federal Confidentiality of Alcohol and Drug Abuse Patient Records regulations: The Federal rules restrict any use of the information to criminally investigate or prosecute any alcohol or drug abuse patient.[facility] HospitalIn the event this information is protected by the Federal Confidentiality of Alcohol and Drug Abuse Patient Records regulations: The Federal rules restrict any use of the information to criminally investigate or prosecute any alcohol or drug abuse patient.[facility] HospitalIn the event this information is protected by the Federal Confidentiality of Alcohol and Drug Abuse Patient Records regulations: The Federal rules restrict any use of the information to criminally investigate or prosecute any alcohol or drug abuse patient.[facility] HospitalIn the event this information is protected by the Federal Confidentiality of Alcohol and Drug Abuse Patient Records regulations: The Federal rules restrict any use of the information to criminally investigate or prosecute any alcohol or drug abuse patient.[facility] HospitalIn the event this information is protected by the Federal Confidentiality of Alcohol and Drug Abuse Patient Records regulations: The Federal rules restrict any use of the information to criminally investigate or prosecute any alcohol or drug abuse patient.[facility] HospitalIn the event this information is protected by the Federal Confidentiality of Alcohol and Drug Abuse Patient Records regulations: The Federal rules restrict any use of the information to criminally investigate or prosecute any alcohol or drug abuse patient.[facility] HospitalIn the event this information is protected by the Federal Confidentiality of Alcohol and Drug Abuse Patient Records regulations: The Federal rules restrict any use of the information to criminally investigate or prosecute any alcohol or drug abuse patient.[facility] HospitalIn the event this information is protected by the Federal Confidentiality of Alcohol and Drug Abuse Patient Records regulations: The Federal rules restrict any use of the information to criminally investigate or prosecute any alcohol or drug abuse patient.[facility] HospitalIn the event this information is protected by the Federal Confidentiality of Alcohol and Drug Abuse Patient Records regulations: The Federal rules restrict any use of the information to criminally investigate or prosecute any alcohol or drug abuse patient.[facility] HospitalIn the event this information is protected by the Federal Confidentiality of Alcohol and Drug Abuse Patient Records regulations: The Federal rules restrict any use of the information to criminally investigate or prosecute any alcohol or drug abuse patient.[facility] HospitalIn the event this information is protected by the Federal Confidentiality of Alcohol and Drug Abuse Patient Records regulations: The Federal rules restrict any use of the information to criminally investigate or prosecute any alcohol or drug abuse patient.[facility] HospitalIn the event this information is protected by the Federal Confidentiality of Alcohol and Drug Abuse Patient Records regulations: The Federal rules restrict any use of the information to criminally investigate or prosecute any alcohol or drug abuse patient.[facility] HospitalIn the event this information is protected by the Federal Confidentiality of Alcohol and Drug Abuse Patient Records regulations: The Federal rules restrict any use of the information to criminally investigate or prosecute any alcohol or drug abuse patient.[facility] HospitalIn the event this information is protected by the Federal Confidentiality of Alcohol and Drug Abuse Patient Records regulations: The Federal rules restrict any use of the information to criminally investigate or prosecute any alcohol or drug abuse patient.[facility] HospitalIn the event this information is protected by the Federal Confidentiality of Alcohol and Drug Abuse Patient Records regulations: The Federal rules restrict any use of the information to criminally investigate or prosecute any alcohol or drug abuse patient.[facility] HospitalIn the event this information is protected by the Federal Confidentiality of Alcohol and Drug Abuse Patient Records regulations: The Federal rules restrict any use of the information to criminally investigate or prosecute any alcohol or drug abuse patient.[facility] HospitalIn the event this information is protected by the Federal Confidentiality of Alcohol and Drug Abuse Patient Records regulations: The Federal rules restrict any use of the information to criminally investigate or prosecute any alcohol or drug abuse patient.[facility] HospitalIn the event this information is protected by the Federal Confidentiality of Alcohol and Drug Abuse Patient Records regulations: The Federal rules restrict any use of the information to criminally investigate or prosecute any alcohol or drug abuse patient.[facility] HospitalIn the event this information is protected by the Federal Confidentiality of Alcohol and Drug Abuse Patient Records regulations: The Federal rules restrict any use of the information to criminally investigate or prosecute any alcohol or drug abuse patient.[facility] HospitalIn the event this information is protected by the Federal Confidentiality of Alcohol and Drug Abuse Patient Records regulations: The Federal rules restrict any use of the information to criminally investigate or prosecute any alcohol or drug abuse patient.[facility] HospitalIn the event this information is protected by the Federal Confidentiality of Alcohol and Drug Abuse Patient Records regulations: The Federal rules restrict any use of the information to criminally investigate or prosecute any alcohol or drug abuse patient.[facility] HospitalIn the event this information is protected by the Federal Confidentiality of Alcohol and Drug Abuse Patient Records regulations: The Federal rules restrict any use of the information to criminally investigate or prosecute any alcohol or drug abuse patient.[facility] HospitalIn the event this information is protected by the Federal Confidentiality of Alcohol and Drug Abuse Patient Records regulations: The Federal rules restrict any use of the information to criminally investigate or prosecute any alcohol or drug abuse patient.[facility] HospitalIn the event this information is protected by the Federal Confidentiality of Alcohol and Drug Abuse Patient Records regulations: The Federal rules restrict any use of the information to criminally investigate or prosecute any alcohol or drug abuse patient.[facility] Reason for Visit (unrecogniz ed section and content) Specialty Diagnoses / Procedures Referred By Contac t Referred To Contact Orthopedics / ORTHOPAEDIC SURGERY Diagnoses rt hand/middle finger injection Procedures YONG INJECT 1 betamethasone acetate-betamethasone sodium phosphate Ngoc De Los Santos, DO [address] [place] [address] [place] [address] [place] [address] Referral ID Status Reason Start Date Expiration Date V isits Requested Visits Authorized [id number] Closed Financial Clearance Not Required 03/29/2023 06/27/2023 [...] Comments Medication Problem 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 Preauthorization Enbrel PENDI NG [facility] [employer] [facility] Reason Comments NO AUTH REQUIRED Sulfasalazine NO AUT H REQUIRED [facility] Reason Onset Date Comments Refill Request 05/10/2023 Reason Onset Date Comments Refill Request Refill Request 06/10/2023 Reason Onset Date Comments Refill Request 07/01/2023 Reason Comments Radio Gen RMP Specialty Diagnoses / Procedures Referred By Contac t Referred To Contact XR IMAGING Diagnoses Pain Procedures XR KNEE GENERAL 4V AP BOTH/PA BOTH/LAT/MERC RIGHT KNEE AP-WGT/LAT/DHARAT Chris Marroquin MD [address] [address] [place] [address] Referral ID Status Reason Start Date Expiration Date V isits Requested Visits Authorized [id number] Closed Auto-Generate d Referral 08/08/2021 09/07/2022 1 1 Reason Onset Date Comments Refill Request 08/09/2023 Reason Onset Date Comments Refill Request 08/30/2023 Reason Onset Date Comments Refill Request 10/29/2023 Reason Comments Rheumatoid Arthritis Care Teams (unrecognized sec tion and content) Veneer Sample Maker Relationship Specialty Start Date End Date Jero Landry DO PCP - General Family Practice 10/20/15 Veneer Sample Maker Relationship Specialty Start Date End Date Jero Landry DO PCP - General Family Practice 10/20/15 Veneer Sample Maker Relationship Specialty Start Date End Date Jero Landry DO PCP - General Family Practice 10/20/15 Veneer Sample Maker Relationship Specialty Start Date End Date Jero Landry DO PCP - General Family Practice 10/20/15 Veneer Sample Maker Relationship Specialty Start Date End Date Jero Landry DO PCP - General Family Practice 10/20/15 Veneer Sample Maker Relationship Specialty Start Date End Date Jero Landry DO PCP - General Family Practice 10/20/15 Veneer Sample Maker Relationship Specialty Start Date End Date Jero Landry DO PCP - General Family Practice 10/20/15 Veneer Sample Maker Relationship Specialty Start Date End Date Jero Landry, DO PCP - General Family Practice 10/20/15 Veneer Sample Maker Relationship Specialty Start Date End Date Jero Landry, DO PCP - General Family Practice 10/20/15 Veneer Sample Maker Relationship Specialty Start Date End Date Jero Landry, DO PCP - General Family Practice 10/20/15 Veneer Sample Maker Relationship Specialty Start Date End Date Jero Landry, DO PCP - General Family Practice 10/20/15 Veneer Sample Maker Relationship Specialty Start Date End Date Jero Landry, DO PCP - General Family Practice 10/20/15 Veneer Sample Maker Relationship Specialty Start Date End Date Jero Landry, DO PCP - General Family Practice 10/20/15 Veneer Sample Maker Relationship Specialty Start Date End Date Jero Landry, DO PCP - General Family Practice 10/20/15 Veneer Sample Maker Relationship Specialty Start Date End Date Jero Landry, DO PCP - General Family Practice 10/20/15 Veneer Sample Maker Relationship Specialty Start Date End Date Jero Landry, DO PCP - General Family Practice 10/20/15 Veneer Sample Maker Relationship Specialty Start Date End Date Jero Landry, DO PCP - General Family Practice 10/20/15 Veneer Sample Maker Relationship Specialty Start Date End Date Jero Landry, DO PCP - General Family Medicine 10/20/15 Veneer Sample Maker Relationship Specialty Start Date End Date Jero Landry, DO PCP - General Family Medicine 10/20/15 Veneer Sample Maker Relationship Specialty Start Date End Date Jero Landry, DO PCP - General Family Medicine 10/20/15 Veneer Sample Maker Relationship Specialty Start Date End Date Jero Landry, DO PCP - General Family Medicine 10/20/15 Veneer Sample Maker Relationship Specialty Start Date End Date Jero Landry, DO PCP - General Family Medicine 10/20/15 Veneer Sample Maker Relationship Specialty Start Date End Date Jero Landry, DO PCP - General Family Medicine 10/20/15 Veneer Sample Maker Relationship Specialty Start Date End Date Jero Landry, DO PCP - General Family Medicine 10/20/15 Veneer Sample Maker Relationship Specialty Start Date End Date Jero Landry, DO PCP - General Family Medicine 10/20/15 Veneer Sample Maker Relationship Specialty Start Date End Date Jero Landry, DO PCP - General Family Medicine 10/20/15 Veneer Sample Maker Relationship Specialty Start Date End Date Jero Landry, DO PCP - General Family Medicine 10/20/15 Veneer Sample Maker Relationship Specialty Start Date End Date Jero Landry, DO PCP - General Family Medicine 10/20/15 Veneer Sample Maker Relationship Specialty Start Date End Date Jero Landry, DO PCP - General Family Medicine 10/20/15 Veneer Sample Maker Relationship Specialty Start Date End Date Jero Landry, DO PCP - General Family Medicine 10/20/15 Veneer Sample Maker Relationship Specialty Start Date End Date Jero Landry, DO PCP - General Family Medicine 10/20/15 Veneer Sample Maker Relationship Specialty Start Date End Date Jero Landry, DO PCP - General Family Medicine 10/20/15 Veneer Sample Maker Relationship Specialty Start Date End Date Jero Landry, DO PCP - General Family Medicine 10/20/15 Veneer Sample Maker Relationship Specialty Start Date End Date Jero Landry, DO PCP - General Family Medicine 10/20/15 Veneer Sample Maker Relationship Specialty Start Date End Date Jero Landry, DO PCP - General Family Medicine 10/20/15 Veneer Sample Maker Relationship Specialty Start Date End Date Jero Landry, DO PCP - General Family Medicine 10/20/15 Veneer Sample Maker Relationship Specialty Start Date End Date Jero Landry, DO PCP - General Family Medicine 10/20/15 Veneer Sample Maker Relationship Specialty Start Date End Date Jero Landry, DO PCP - General Family Medicine 10/20/15 Veneer Sample Maker Relationship Specialty Start Date End Date Jero Landry, DO PCP - General Family Medicine 10/20/15 Veneer Sample Maker Relationship Specialty Start Date End Date Jero Landry DO PCP - General Family Medicine 10/20/15 Veneer Sample Maker Relationship Specialty Start Date End Date Jero Landry DO PCP - General Family Medicine 10/20/15 Veneer Sample Maker Relationship Specialty Start Date End Date Jero Landry DO PCP - General Family Medicine 10/20/15 Veneer Sample Maker Relationship Specialty Start Date End Date Jero Landry DO PCP - General Family Medicine 10/20/15 Veneer Sample Maker Relationship Specialty Start Date End Date Jero Landry DO PCP - General Family Medicine 10/20/15 Veneer Sample Maker Relationship Specialty Start Date End Date Jero Landry DO PCP - General Family Medicine 10/20/15 Veneer Sample Maker Relationship Specialty Start Date End Date Jero Landry DO PCP - General Family Medicine 10/20/15 Veneer Sample Maker Relationship Specialty Start Date End Date Jero Landry DO PCP - General Family Medicine 10/20/15 Veneer Sample Maker Relationship Specialty Start Date End Date Jero Landry DO PCP - General Family Medicine 10/20/15 Veneer Sample Maker Relationship Specialty Start Date End Date Jero Landry DO [address] [place] [address] PCP - General Family Medicine 09/20/23 FOR RECORDS PERTAINING TO PATIENTS WHO ARE [...] BE BASED ON THE PRIMARY CLINICAL RECORDS. [employer] [facility]. provides no warranty or guarantee of the accuracy or completeness of information in this document.
== END | disposition home or self-care (01) ==
LOC: MRI 14:53
PROVIDERS: PCP Family Medicine; Referring Provider Podiatrist; Visit Provider Podiatrist
DX: M77.51 Other enthesopathy of right foot and ankle (principal)
CPT/HCPCS: 73718

== ENCOUNTER → 2023-12-13 | Outpatient (CLI) | payer MEDICAID, SELFPAY ==
--- NOTE | 2023-12-13 13:37 | NEURO ---
NCS and/or EMG Patient Report Ordering Doctor: Tommy Thomas DATE OF SERVICE: 12/13/23 Clinical Summary: This is a 58 year old female patient presenting with symptoms of numbness/tingling in both feet and up the distal shins bilaterally. This EMG/NCS was performed to evaluate for peripheral polyneuropathy. Nerve Conduction Studies Summary: Nerve conduction studies in the bilateral lower extremities were within normal ranges. Needle Examination Summary: Needle examination of select muscles of the bilateral lower extremities was normal. Impression: This is a normal study. There is no electrodiagnostic evidence of a large-fiber peripheral polyneuropathy. Please be aware, however, that conventional electrodiagnostic testing (EMG/NCS) cannot rule out the presence of a small-fiber peripheral polyneuropathy. Multi Select Codes Neurology Neurology Interp Codes: 57189-28 Musc test done w/n test comp (interp) (2) and 59396-67 Nrv cndj test 7-8 studies (interp)
== END | disposition home or self-care (01) ==
LOC: PSN 12:20
PROVIDERS: PCP Family Medicine; Referring Provider Podiatrist; Visit Provider Podiatrist
DX: R20.2 Paresthesia of skin (principal)
CPT/HCPCS: 95886; 95910

== ENCOUNTER → 2024-01-12 | Outpatient (CLI) | payer MEDICAID, SELFPAY ==
[2024-01-12 13:25] LABS: Cholesterol 195 mg/dL (200); High Density Lipoprotein 75 mg/dL; Triglycerides 48 mg/dL; Very Low Density Lipoprotein 10 mg/dL (5-40)
== END | disposition home or self-care (01) ==
LOC: BFHLAB 10:34
PROVIDERS: PCP Family Medicine; Referring Provider Family Medicine; Visit Provider Family Medicine
DX: E78.5 Hyperlipidemia, unspecified (principal)
CPT/HCPCS: 36415; 80061

== ENCOUNTER 2024-02-22 07:37 | Day surgery (SDC) | payer MEDICAID, SELFPAY ==
[2024-02-22 07:55] VITALS: BP 159/77; PULSE 86; RESP 16; TEMP 36.9; O2SAT 100; BMI 33.7
[2024-02-22] MEDS: Lactated Ringers 1,000 ML 15 ML IV (07:58)
[2024-02-22 08:17] LABS: Bedside Glucose 82 mg/dL (74-106)
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
--- NOTE | 2024-02-22 08:45 | COLBX_PTH ---
PATIENT: GERMÁN COSBY LOC: EN U#:[id number] AGE/SX: 58/F ROOM: RE02/22/[address]: Dr. Manuel Spencer MD : 1965 BED: DIS: 02/22/2024 SPEC #: [id number] RECD: 02/22/24 10:50 STATUS: MARLEN TYLER #: [id number] ANAI: 02/22/24 08:[address]: Manuel Spencer DEPT: SURGICAL PATHOLOGY RECD BY: Rey Patel ENTERED: 02/22/24 11:54 SP TYPE: COLON BX OTHR DR: Dr. Silverio Landry DO Tissues: Sigmoid colon biopsy Procedures: Surgery Specimen Level IV HEADER OPERATION: Colonoscopy with polypectomy PRE-OP DIAGNOSIS: Encounter for screening for malignant neoplasm of colon TISSUE SUBMITTED: Sigmoid colon polyp MICROSCOPIC DIAGNOSIS Sigmoid colon polyp, polypectomy: Hyperplastic polyp. KARMA/ 02/23/2024 MICROSCOPIC DESCRIPTION Slides are reviewed. GROSS DESCRIPTION Received in fixative is one container labeled with the patient's name and designated Sigmoid colon polyp. The specimen consists of one irregular fragment of light salazar soft tissue that measures 0.3 x 0.3 x 0.1 cm. The specimen is totally submitted in one cassette. KARMA/ 02/22/2024 TC:1 CPT:44315
[2024-02-22 09:21] VITALS: BP 159/77; BP 162/100; PULSE 82; RESP 16; TEMP 36; O2SAT 10
--- NOTE | 2024-02-22 09:23 | OP.CCLET_ITS ---
02/22/2024 Silverio Landry [address] [place] [address] Re : Colonoscopy procedure for Oumou Martinez Dear Dr. Landry This procedure was performed on Thursday, February 22, 2024. My impressions and recommendations are as follows: Impressions : - The entire examined colon is normal on direct and retroflexion views. - No specimens collected. Recommendations : - Discharge patient to home. - Resume previous diet. - Continue present medications. - Repeat colonoscopy in 10 years for screening purposes. My findings are described in the full procedure note, which is enclosed. If I can be of further assistance, please feel free to contact me at Doctor phone number(s): , Work: . Sincerely, Manuel Spencer MD 02/22/2024 9:22:32 AM This report has been signed electronically.
--- NOTE | 2024-02-22 09:23 | OP.COLON_ITS ---
Patient Name: Oumou Martinez Procedure Date: 02/22/2024 8:50 AM Date of : 1965 Age: 58 Procedure: Colonoscopy Indications: Screening for colorectal malignant neoplasm Providers: Manuel Spencer MD Medicines: Propofol per Anesthesia Patient Profile: This is a 58 year old female. Refer to note in patient chart for documentation of history and physical. Last Colonoscopy: none. The patient's first colonoscopy is today. Complications: No immediate complications. Procedure: Pre-Anesthesia Assessment: - Prior to the procedure, a History and Physical was performed, and patient medications and allergies were reviewed. The patient's tolerance of previous anesthesia was also reviewed. The risks and benefits of the procedure and the sedation options and risks were discussed with the patient. All questions were answered, and informed consent was obtained. Prior Anticoagulants: The patient has taken no anticoagulant or antiplatelet agents. After reviewing the risks and benefits, the patient was deemed in satisfactory condition to undergo the procedure. After I obtained informed consent, the scope was passed under direct vision. Throughout the procedure, the patient's blood pressure, pulse, and oxygen saturations were monitored continuously. The pediatric colonoscope was introduced through the anus and advanced to the cecum, identified by appendiceal orifice and ileocecal valve. The colonoscopy was performed without difficulty. The patient tolerated the procedure well. The quality of the bowel preparation was good. The ileocecal valve, appendiceal orifice, and rectum were photographed. Scope In: 8:56:29 AM Scope Withdrawal Time 0 hours 9 minutes 8 seconds Scope Out: 9:14:19 AM Total Procedure Duration Time 0 hours 17 minutes 50 seconds Findings: The entire examined colon appeared normal on direct and retroflexion views. Impression: - The entire examined colon is normal on direct and retroflexion views. - No specimens collected. Recommendation: - Discharge patient to home. - Resume previous diet. - Continue present medications. - Repeat colonoscopy in 10 years for screening purposes. Procedure Code(s): --- Professional --- 39770, Colonoscopy, flexible; diagnostic, including collection of specimen(s) by brushing or washing, when performed (separate procedure) Diagnosis Code(s): --- Professional --- Z12.11, Encounter for screening for malignant neoplasm of colon CPT copyright 2021 [employer]. All rights reserved. The codes documented in this report are preliminary and upon bingo caller review may be revised to meet current compliance requirements. Manuel Spencer MD 02/22/2024 9:22:32 AM This report has been signed electronically. Number of Addenda: 1 Note Initiated On: 02/22/2024 8:50 AM Addendum Number: 1 Addendum Date: 02/22/2024 9:27:58 AM There was a small sigmoid polyp which was removed with cautery snare Manuel Spencer MD 02/22/2024 9:28:20 AM This report has been signed electronically.
[2024-02-22 09:25] VITALS: BP 126/71; BP 159/77; PULSE 82; RESP 16; O2SAT 100
[2024-02-22 09:30] VITALS: BP 127/75; BP 159/77; PULSE 78; RESP 16; TEMP 36; O2SAT 99
[2024-02-22 09:43] VITALS: BP 159/77
== END 2024-02-22 09:49 | disposition home or self-care (01) ==
LOC: EN 07:39 → AC 07:39
PROVIDERS: PCP Family Medicine; Referring Provider Family Medicine; Visit Provider Surgery
PROC: 0DJD8ZZ Inspection of Lower Intestinal Tract, Via Natural or Artificial Opening Endoscopic (ICD-10-PCS; CPT 45378; principal; 2024-02-22 08:40)
DX: Z12.11 Encounter for screening for malignant neoplasm of colon (principal); E11.9 Type 2 diabetes mellitus without complications; M79.7 Fibromyalgia; I10 Essential (primary) hypertension; E78.5 Hyperlipidemia, unspecified; G47.30 Sleep apnea, unspecified; K63.5 Polyp of colon; K21.9 Gastro-esophageal reflux disease without esophagitis; Z79.899 Other long term (current) drug therapy; Z87.891 Personal history of nicotine dependence; Z79.84 Long term (current) use of oral hypoglycemic drugs
CPT/HCPCS: 45378; 82962; 88305; J7120; J2405

== ENCOUNTER 2024-09-25 17:14 | Emergency (ER) | payer MEDICAID, SELFPAY ==
[2024-09-25] VITALS (8 sets, daily range): BP systolic 144–179; BP diastolic 73–101; PULSE 77–91; RESP 14–18; TEMP 35.9; O2SAT 96–100; BMI 33.6
--- NOTE | 2024-09-25 17:46 | EKG12_ITS ---
Test Reason : CP Blood Pressure : */* mmHG Vent. Rate : 88 BPM Atrial Rate : 88 BPM P-R Int : 214 ms QRS Dur : 80 ms QT Int : 350 ms P-R-T Axes : 63 20 53 degrees QTcB Int : 423 ms Sinus rhythm with 1st degree A-V block Otherwise normal ECG Confirmed by Anant Lnae ([id number]), staff editor EDA BANERJEE ([id number]) on 09/26/2024 1:28:53 PM Referred By: MORRIS/MARIA R Confirmed By: Anant Lane
[2024-09-25] MEDS: 0.9% Normal Saline (1000mL) 1,000 ML 999 ML IV (17:56)
--- NOTE | 2024-09-25 18:00 | RAD_ITS ---
EXAM: XR CHEST, 2 VIEWS CLINICAL INDICATION: chest pain TECHNIQUE: Frontal and lateral views of the chest. COMPARISON: 02/19/2020 FINDINGS: LUNGS AND PLEURAL SPACES: Small calcified granuloma is again seen at the peripheral aspect of the left upper lobe. No consolidation or edema. No pneumothorax. No effusion. HEART: Unremarkable. Cardiac silhouette not enlarged. MEDIASTINUM: Central airways and mediastinal contour are unremarkable. BONES/JOINTS: Degenerative changes of the spine. Degenerative changes of the acromioclavicular joints. No acute fracture. SOFT TISSUES: Unremarkable. VASCULATURE: Atherosclerotic calcifications of the nonenlarged thoracic aortic arch. RAD/Chest PA and Lateral IMPRESSION: No acute disease. Electronically Signed: Rudi Sarmiento MD at 19:42 EST ,
[2024-09-25 18:13] LABS: Absolute Lymphocyte Count 1.69 X10^3/uL (0.83-4.51); Absolute Neutrophil Count 4.9 X10^3/uL (2.0-7.7); Basophil# 0.06 X10^3/uL; Basophil% 0.8 % (0-1); Eosinophil# 0.11 X10^3/uL; Eosinophils% 1.5 % (0-5); Hematocrit 41.2 % (37-47); Hemoglobin 13.4 g/dL (12.0-15.0); Lymphocyte # 1.69 X10^3/ul (0.83-4.51); Lymphocyte % 22.6 % (19-41); Mean Corp Hgb Conc 32.5 g/dL (32-36); Mean Corpuscular Hgb 30.1 pg (27.0-32.0); Mean Corpuscular Volume 92.6 fL (81-99); Mean Platelet Vol. 10.3 fl (6.2-12.0); Monocyte# 0.69 X10^3/uL; Monocyte% 9.2 % (0-10); NRBC Flagged by Analyzer 0 % (0-5); Neutrophil # 4.89 X10^3/uL (2.7-7.7); Neutrophil % 65.5 % (47-70); Platelet Count 337 K/mm3 (150-450); RBC Distribution Width CV 13.4 % (11.6-14.6); RBC Distribution Width SD 45.2 fl (35.1-43.9); Red Blood Count 4.45 M/mm3 (4.2-5.4); White Blood Count 7.5 K/mm3 (4.4-11.0)
--- NOTE | 2024-09-25 18:27 | EDS_ITS ---
HPI History of Present Illness Chief Complaint: Chest Pain Narrative Narrative: Patient is a 59-year-old female past medical history of alcohol use, diabetes, IBS, sleep apnea, type 2 diabetes, Graves' disease, GERD who presents to the emergency department chief complaint chest pain. Patient states that she has had chest pain for about 3 days now on the left side of her chest does not radiate anywhere. States that nothing makes this better or worse. States that it has been constant patient states that she had a stress test approximately in 2017 for her foot surgery. Patient denies any drug use states that she stopped smoking several years ago. Patient denies any history of blood clots denies any recent travel history. [facility] Medical History Wears glasses Cancer Post-menopausal Alcohol use History of steroid therapy Diabetes Thyroid disease History of IBS Former smoker CPAP (continuous positive airway pressure) dependence Sleep apnea History of echocardiogram History of stress test Hyperlipidemia Type 2 diabetes mellitus Hx LEEP (loop electrosurgical excision procedure), cervix, neck/back pain Knee pain Arthritis Hypertension Graves disease Fibromyalgia Cervical cancer GERD (gastroesophageal reflux disease) Spinal stenosis Whiplash IBS (irritable bowel syndrome) Home Medications ?Medication ?Instructions ?Recorded ?Last Taken ?Type amlodipine 10 mg tablet 10 mg PO QHS 02/05/16 02/21/24 History lisinopril 20 mg tablet 20 mg PO DAILY 01/22/17 02/21/24 History simvastatin 20 mg tablet 20 mg PO QHS 01/22/17 02/21/24 History cyclobenzaprine 10 mg tablet 10 mg PO QHS PRN PRN muscle relaxer 10/12/17 Unknown History cholecalciferol (vitamin D3) 50 2,000 unit PO DAILY 03/15/18 02/21/24 History mcg (2,000 unit) capsule levothyroxine 75 mcg tablet 50 ea PO DAILY 11/25/20 02/21/24 History dulaglutide 3 mg/0.5 mL 3 mg subcut QWEEK 01/12/24 02/17/24 History subcutaneous pen injector (Trulicity) leflunomide 20 mg tablet 20 mg PO DAILY 01/12/24 02/21/24 History metformin 1,000 mg tablet 1,000 mg PO DAILY 01/12/24 Unknown History sulfasalazine 500 mg tablet 0.5 g PO BID 01/12/24 02/21/24 History etanercept 50 mg/mL (1 mL) 50 mg subcut QWEEK 02/15/24 02/18/24 History subcutaneous pen injector (Enbrel SureClick) multivitamin (Daily Multi-Vitamin 1 tab PO DAILY 02/15/24 02/21/24 History tablet) levothyroxine 50 mcg tablet 50 mcg PO DAILY 09/25/24 Unknown History propranolol 80 mg capsule,24 80 mg PO QHS 09/25/24 Unknown History hr,extended release Allergy/AdvReac Type Severity Reaction Status Date / Time hydroxychloroquine (From Allergy Mild Rash Verified 09/25/24 17:16 Plaquenil) amitriptyline Allergy Fluttering, Verified 09/25/24 17:16 nervousness duloxetine (From Cymbalta) Allergy Other Verified 09/25/24 17:16 meloxicam AdvReac Intermediate Other Verified 09/25/24 17:16 gabapentin AdvReac Mild sedation, Verified 09/25/24 17:16 loopy, forgetfulness Family History Mother Diabetes Hypertension Grandmother Rheumatoid arthritis Heart disease Father Hypertension Grandfather Heart disease Surgical History Hx of bilateral cataract extraction Hx of thumb surgery Hx of colonoscopy History of foot surgery History of tonsillectomy Status post right foot surgery History of placement of ear tubes H/O dilation and curettage H/O LEEP History of tonsillectomy bladder lift rectal reconstruction Social History household members: spouse housing: house current occupational status: retired Smoking Status: Former smoker quit date: 11/19/07 Tobacco: How many years used: 25 alcohol intake: never substance use type: does not use what type of physical activity do you participate in: walking frequency: 3-4 times per week do you feel safe at home: Yes ROS ROS ED ROS Narrative Constitutional: Denies any fevers, chills, headaches, lightheadedness, dizziness Eyes: Denies change in vision double and blurry vision Cardiovascular: Complains of chest pain as noted above denies palpitations Respiratory: Denies coughing wheezing shortness of breath Abdomen: Denies abdominal pain nausea vomit diarrhea : Denies any urinary symptoms Neurological: Denies numbness, weakness, tingling Musculoskeletal: Denies back pain Skin: Denies any rashes or lesions EXAM Physical Exam Narrative Exam Narrative: General: Patient lying in bed rest comfortably did not appear to be in acute distress Head: Atraumatic, normocephalic Eyes: PERRL bilateral, EOMI bilateral, no conjunctival injection noted Neck: Soft, supple, trachea midline Cardiovascular: Regular rate and rhythm no murmurs gallops rubs noted Respiratory: Clear to auscultation bilaterally Abdomen: Soft, nondistended, nontender to palpation, bowel sounds present x 4 Extremities: radial pulses +2/4 in the bilateral upper extremities, +5/5 strength noted in the bilateral upper and lower extremities Neurological: Patient following commands knew that she was at [facility] years 2023 Skin: Warm, dry, tact Const Vital Signs: 09/25/24 17:16 09/25/24 17:46 09/25/24 18:12 Temperature 96.7 F L Temperature Source Temporal Pulse Rate 88 77 Respiratory Rate 18 18 Blood Pressure 179/83 H 152/101 H Blood Pressure Mean 115 118 Pulse Ox 100 97 98 Oxygen Delivery Method Room Air Room Air Room Air 09/25/24 18:59 09/25/24 19:14 09/25/24 19:41 Temperature Temperature Source Pulse Rate 81 91 Respiratory Rate 18 17 Blood Pressure 167/73 H 170/82 H 172/85 H Blood Pressure Mean 104 111 114 Pulse Ox 96 98 Oxygen Delivery Method Room Air Room Air 09/25/24 20:19 Temperature 96.7 F L Temperature Source Pulse Rate 78 Respiratory Rate 14 Blood Pressure 154/85 H Blood Pressure Mean 108 Pulse Ox 98 Oxygen Delivery Method MDM MDM MDM Narrative Medical decision making narrative: Patient is a 59-year-old female who presents to the emerged part with a chief complaint of 3 days worth of chest pain. Patient will have a workup performed here on the differential diagnose includes Melamin to ACS, hypertensive emergency, central hypertension, stress, pneumonia. Once workup is obtained and reviewed she will be reevaluated. Patient's CBC was reviewed and was largely unremarkable no evidence leukocytosis white blood count normal at 7.5, hemoglobin 13.4, plate count noted be 337. Patient sodium normal 130, potassium normal 3.8, creatinine normal at 0.89. Patient's glucose was noted be 107, troponin was 4 and her EKG reviewed and independently interpreted by myself showed sinus rhythm with a rate of 80 bpm with evidence of first-degree AV block. Patient's TSH normal at 1.92. Patient's chest x-ray reviewed by myself and by radiology showed no acute cardiopulmonary processes. Discussed results with the patient and she was feeling flushed her blood pressure was elevated we gave her 0.1 mg clonidine and her blood pressure improved she feels much better she would like to go home at this point time. Did discuss case with on-call general repair mechanic Dr. Lane who states that the patient should have a outpatient stress test. Patient was advised to have her primary care physician order this if not she was given the cardiology's team's number and she is to call their office for a stress test in the outpatient set ting. Patient states that she has been under a lot of stress recently and feels that this may be playing a part into her symptoms. All question concerns answered she was discharged home in stable condition. Lab Data Labs: Laboratory Results - last 24 hr 09/25/24 17:29 WBC 7.5 RBC 4.45 Hgb 13.4 Hct 41.2 MCV 92.6 MCH 30.1 MCHC 32.5 RDW Std Deviation 45.2 H RDW Coeff of Piero 13.4 Plt Count 337 MPV 10.3 Immature Gran % (Auto) 0.400 Neut % (Auto) 65.5 Lymph % (Auto) 22.6 [place] % (Auto) 9.2 Eos % (Auto) 1.5 Baso % (Auto) 0.8 Absolute Neuts (auto) 4.9 Absolute Lymphs (auto) 1.69 Nucleated RBC % 0 Sodium 138 Potassium 3.8 Chloride 105 Carbon Dioxide 27.0 Anion Gap 6 BUN 15 Creatinine 0.89 Estim Creat Clear Calc 74.24 Est GFR (MDRD) Af Amer 83 Est GFR (MDRD) Non-Af 68 BUN/Creatinine Ratio 16.8 Glucose 107 H Calcium 9.6 Troponin I High Sens 4 TSH 1.920 Radiography Diagnostic Testing: Clinical Impression(s) from Imaging Studies Chest X-Ray 09/25/24 18:00 IMPRESSION: No acute disease. Electronically Signed: Rudi Sarmiento MD at 19:42 EST , Discharge Plan Triage Chief Complaint: Chest Pain ED Provider: Von El Dx/Rx/DC Orders Clinical Impression: Chest pain Prescriptions: No Action cyclobenzaprine 10 mg tablet 10 mg PO QHS PRN PRN (Reason: muscle relaxer) levothyroxine 75 mcg tablet 50 ea PO DAILY Patient Comments: TAKE 1 TABLET BY MOUTH IN THE MORNING ON AN EMPTY STOMACH metformin 1,000 mg tablet 1,000 mg PO DAILY Trulicity 3 mg/0.5 mL pen injector 3 mg subcut QWEEK sulfasalazine 500 mg tablet 0.5 g PO BID Rx Instructions: give with food (meal/snack) leflunomide 20 mg tablet 20 mg PO DAILY amlodipine 10 MG tablet 10 mg PO QHS lisinopril 20 MG tablet 20 mg PO DAILY simvastatin 20 MG tablet 20 mg PO QHS cholecalciferol (vitamin D3) 2,000 UNIT capsule 2,000 unit PO DAILY levothyroxine 50 mcg tablet 50 mcg PO DAILY propranolol 80 mg capsule,extended release 24 hr 80 mg PO QHS Enbrel SureClick 50 mg/mL (1 mL) pen injector 50 mg subcut QWEEK multivitamin [Daily Multi-Vitamin] Tablet 1 tab PO DAILY Primary Care Provider: Silverio Landry Referrals: Silverio Landry DO [Primary Care Provider] - Anant Lane MD [Med Staff - Active Staff] - Activity Restrictions/Additional Instructions: Follow-up with your primary care physician in the outpatient setting. Have them order you a stress test if they cannot do so follow-up with the cardiology team that you referred to and they will order this. Return with worsening symptoms or concerns. Keep a close eye on your blood pressure. Print Language: Micronesian Disposition Disposition: Home, Self Care
[2024-09-25 18:37] LABS: Anion Gap 6 (5-15); BUN 15 mg/dL (7-18); BUN/Creat Ratio 16.8 RATIO (10-20); Calcium,Total 9.6 mg/dL (8.5-10.1); Chloride 105 mmol/L (98-107); Creatinine, Serum 0.89 mg/dL (0.55-1.02); EST Glomerular Filtration Rate 68 mL/min (>60); Est Glom Filt Rate - Afr Amer 83 mL/min (>60); Estimated Creatinine Clearance 74.24 ml/min; Glucose 107 mg/dL (74-106); Potassium 3.8 mmol/L (3.5-5.1); Sodium Level 138 mmol/L (136-145); Troponin-I HS 4 pg/mL (3.0-54.0)
[2024-09-25] MEDS: cloNIDine HCl 0.1 MG Tablet PO (20:11)
== END 2024-09-25 21:28 | disposition home or self-care (01) ==
PROVIDERS: Emergency Provider Emergency Medicine; PCP Family Medicine; Visit Provider Emergency Medicine
DX: R07.9 Chest pain, unspecified (principal); E11.9 Type 2 diabetes mellitus without complications; I44.0 Atrioventricular block, first degree; K58.9 Irritable bowel syndrome, unspecified; G47.30 Sleep apnea, unspecified; K21.9 Gastro-esophageal reflux disease without esophagitis; E78.5 Hyperlipidemia, unspecified; E05.00 Thyrotoxicosis with diffuse goiter without thyrotoxic crisis or storm; M79.7 Fibromyalgia; M48.00 Spinal stenosis, site unspecified; M19.90 Unspecified osteoarthritis, unspecified site; Z85.41 Personal history of malignant neoplasm of cervix uteri; Z79.85 Long-term (current) use of injectable non-insulin antidiabetic drugs; Z79.84 Long term (current) use of oral hypoglycemic drugs; Z79.899 Other long term (current) drug therapy; Z79.890 Hormone replacement therapy; Z87.891 Personal history of nicotine dependence
CPT/HCPCS: 71046; 80048; 84443; 84484; 85025; 93005; 96360; 99283; A4216

== ENCOUNTER → 2024-11-08 | Outpatient (CLI) | payer MEDICAID, SELFPAY ==
--- NOTE | 2024-11-08 13:24 | STRESSREP ---
Stress Test Report Date: 11/08/2024 Procedure: Pharmacologic stress nuclear imaging study Indications: Chest pain Consent: Per the patient Procedure: The patient underwent pharmacologic (Regadenoson 0.4mg ) evaluation with a peak heart rate of 95 beats per minute (59%predicted maximal heart rate) and a peak blood pressure of 138/72 mmHg. The baseline ECG demonstrated sinus rhythm. The peak pharmacologic ECG demonstrated no ischemic changes. There were no cardiac dysrhythmias pretest, during pharmacologic infusion, or recovery. There was no complaint of chest discomfort during pharmacologic infusion or recovery. The patient was injected with 13.8 millicuries of technetium 99m Cardiolite and subsequently rest SPECT Cardiolite nuclear imaging was obtained in the horizontal long, vertical long, and short axis views. The patient underwent pharmacologic (Regadenoson) evaluation. The patient was injected with 41.1 millicuries of technetium 99m Cardiolite and subsequently stress SPECT Cardiolite nuclear imaging was obtained in the horizontal long, vertical long, and short axis views. A gated Cardiolite study at peak stress was obtained. The examination was stopped secondary to completion of protocol. Rest and stress SPECT Cardiolite nuclear imaging status post realignment, normalization, and attenuation correction demonstrate no fixed or reversible perfusion defects. There is end systolic thickening and brightening. The gated Cardiolite study demonstrates myocardial thickening and inward wall motion. The reported LVEF is 77%. Impression: 1. Pharmacologic (Regadenoson) evaluation 2. Peak pharmacologic ECG with no ischemic changes. 3. There were no cardiac dysrhythmias pretest, during pharmacologic infusion, or recovery. 5. Rest and stress SPECT Cardiolite nuclear imaging demonstrate relative uniform tracer uptake and myocardial perfusion appearing within normal limits. 6. The gated Cardiolite study reports an LVEF of 77%. This note was generated with [employer] software. It may contain incorrect words, spelling, and punctuation that were not noted in checking the note before signing.
== END | disposition home or self-care (01) ==
LOC: CVS 06:55
PROVIDERS: PCP Family Medicine; Referring Provider Family Medicine; Visit Provider Family Medicine
DX: R07.9 Chest pain, unspecified (principal)
CPT/HCPCS: 78452; 93017; A9500; A4216; J2785

== ENCOUNTER 2025-04-27 10:30 | Outpatient (RCR) | payer MEDICAID, SELFPAY ==
--- NOTE | 2025-02-23 14:27 | HP.PTEVAL_ITS ---
Patient's Visit Information Visit Information Visit Information: GERMÁN COSBY is a 59 year old F referred to Physical Therapy by SHIMA Masters with a diagnosis of S/P TOTAL LEFT REPLACEMENT. Date of Evaluation: 02/23/25 Physical Therapist: Jaime Pulliam, PT, Cert MDT, OCS Visit Plan Frequency: 2x /Week Duration: 6 Weeks Plan: S/P TKA PT INTERVENTIONS ROM ,STRENGTHENING QUADS/HAMS/HIP ,GAIT/BALANCE TRAINING ,FUNCTIONAL STRENGTHENING ,NUTSEP ,AND VASO/CP NEEDED Subjective Subjective: This 59 y/o female presents to physical therapy with left TKA done Dr Wong at [facility] February 07 . Patient d/c ,February 08 with FWW and WBAT. Patient used FWW for ~ 1 week then last started to use QC and had x- rays last . Then okay to start outpatient. Patient initially had [facility] PT for 2 weeks d/c just yesterday. Patient had prior PT for 2 years progressively worse thus x-rays showed progressive DJD. Denies paresthesia/tingling. Patient sleeping okay with pain medication. Patient ice and elevates. Medication oxycodone. Patient lives 1 story home with 2 steps with tub shower set up. Patient has min pain. Patient condition affects QOL and function/gait /housework tasks. Goals walk normal SOCAIL: takes care of grandchildren VOCATION: Pain Left Knee: Pain Intensity (Out of 10): 3 Pain Intensity Range: 10 Objective Objective: POSTURE: mild forward posture trunk INCISION: well approximate drt mild redness NEURO: c/o mild paresthesia around incision GIRTH PATELLA: 48.5 cm GIRTH 6 SUPRAPATELAR: 63.1 AAROM: right supine knee flexion 2-105 degrees MMT: ( peak force) right quads 16.8 ,hamstrings 16.3 , hip flexion 14.8 ,ankle 4/5 STAIRS: one step at time Balance/Special Test Scores Lower Extremity Functional Score: 26 TUG Test Time Seconds: 14.41 WOMAC Total Score: 42 WOMAC Percentatge: 52.2800 Goals Goal 1:: Patient to be I with HEP for TKA Goal Time Frame: 4-6 Weeks Goal 2:: Patient to improve AROM knee flexion 0-120 degrees to improve stairs Goal Time Frame: 4-6 Weeks Goal 3:: Patient to improve peak force quads/hams /hip by 10-15 # strength to improve gait Goal Time Frame: 4-6 Weeks Goal 4:: Patient to improve LFES score by 5-10 points to improve function and QOL Goal Time Frame: 4-6 Weeks Goal 5:: Patient to improve TUG score by < 10 seconds to improve normal stacey Goal Time Frame: 4-6 Weeks Goal 6:: Patient to normalize gait pattern no device Goal Time Frame: 4-6 Weeks Rehabilitation Potential Physical Therapy Diagnosis: Patient underwent s/p TKA with decrease ROM ,weakness quads/hams ,increase edema ,impairs gait and ADL's thus benefit from skilled PT Rehabilitation Potential: Good Anticipated Interventions Patient/Client Instruction: Educate patient on: Condition and Plan of Care For the Purpose of:: To decrease pain, To increase ROM, To improve muscle performance and motor function, To improve ability to perform ADL's, To increase tolerance to activity/condition/position, To improve ability of physical actions for home/community/work/leisure, To improve health of tissue, To decrease soft tissue restriction, To increase flexibility/ROM, To improve endurance, To improve balance and To improve tolerance to ADL's Therapeutic Exercise to Include: Strength training, Endurance training, Balance training, Flexibilty training, Gait and locomotor training, Passive ROM and Active ROM Comment: RIGHT QUADS/HAMS/HIP For the Purpose of:: To decrease pain, To increase ROM, To improve muscle performance and motor function, To improve ability to perform ADL's, To increase tolerance to activity/condition/position, To improve ability of physical actions for home/community/work/leisure, To improve gait and locomotor functions, To improve health of tissue, To decrease soft tissue restriction, To increase flexibility/ROM, To improve endurance and To improve balance Cryotherapy (ice pack, ice massage): Yes Vasopneumatic device: Yes For the Purpose of:: To decrease swelling/inflammation, To increase ROM, To improve nutrient delivery to tissue, To increase oxygenation perfusion, To improve health of tissue and To decrease soft tissue restriction Text: Thank you for the opportunity to evaluate your patient. For Medicare and Medicare HMO plans, please review the plan of care and approve it. It will need to be FAXED BACK to us at [phone] for Medicare purposes. For Medicare only, by signing this I certify the plan of care. Please let me know if there are questions or concerns regarding this plan of care. Physician Signature: Date:
--- NOTE | 2025-04-27 10:54 | HP.PTEVAL ---
Patient's Visit Information Visit Information Visit Information: GERMÁN COSBY is a 60 year old F referred to Physical Therapy by SHIMA Masters with a diagnosis of S/P TOTAL LEFT REPLACEMENT. Date of Evaluation: 02/23/25 Physical Therapist: Jaime Pulliam, PT, Cert MDT, OCS Visit Plan Frequency: 2x /Week Duration: 6 Weeks Plan: D/C Subjective Subjective: This 59 y/o female presents to physical therapy with left TKA done Dr Wong at [facility] February 07 . Patient d/c ,February 08 with FWW and WBAT. Patient used FWW for ~ 1 week then last started to use QC and had x-rays last . Then okay to start outpatient. Patient initially had [facility] PT for 2 weeks d/c just yesterday. Patient had prior PT for 2 years progressively worse thus x-rays showed progressive DJD. Denies paresthesia/tingling. Patient sleeping okay with pain medication. Patient ice and elevates. Medication oxycodone. Patient lives 1 story home with 2 steps with tub shower set up. Patient has min pain. Patient condition affects QOL and function/gait /housework tasks. Goals walk normal SOCAIL: takes care of grandchildren VOCATION: Pain Left Knee: Pain Intensity (Out of 10): 1 Pain Intensity Range: 10 Comment: no longer on pain med. Objective Objective: POSTURE: mild forward posture trunk INCISION: well approximate drt mild redness NEURO: c/o mild paresthesia around incision GIRTH PATELLA: 48.5 cm GIRTH 6 SUPRAPATELAR: 63.1 AAROM: right supine knee flexion 2-105 degrees MMT: ( peak force) right quads 16.8 ,hamstrings 16.3 , hip flexion 14.8 ,ankle 4/5 STAIRS: one step at time Balance/Special Test Scores Lower Extremity Functional Score: 67 TUG Test Time Seconds: 14.41 WOMAC Total Score: 1 WOMAC Percentatge: 98.9600 Goals Goal 1:: Patient to be I with HEP for TKA Goal Time Frame: 4-6 Weeks Goal 2:: Patient to improve AROM knee flexion 0-120 degrees to improve stairs Goal Time Frame: 4-6 Weeks Goal 3:: Patient to improve peak force quads/hams /hip by 10-15 # strength to improve gait Goal Time Frame: 4-6 Weeks Goal 4:: Patient to improve LFES score by 5-10 points to improve function and QOL Goal Time Frame: 4-6 Weeks Goal 5:: Patient to improve TUG score by < 10 seconds to improve normal stacey Goal Time Frame: 4-6 Weeks Goal 6:: Patient to normalize gait pattern no device Goal Time Frame: 4-6 Weeks Rehabilitation Potential Physical Therapy Diagnosis: Patient underwent s/p TKA with decrease ROM ,weakness quads/hams ,increase edema ,impairs gait and ADL's thus benefit from skilled PT Rehabilitation Potential: Good Anticipated Interventions Patient/Client Instruction: Educate patient on: Condition and Plan of Care For the Purpose of:: To decrease pain, To increase ROM, To improve muscle performance and motor function, To improve ability to perform ADL's, To increase tolerance to activity/condition/position, To improve ability of physical actions for home/community/work/leisure, To improve health of tissue, To decrease soft tissue restriction, To increase flexibility/ROM, To improve endurance, To improve balance and To improve tolerance to ADL's Therapeutic Exercise to Include: Strength training, Endurance training, Balance training, Flexibilty training, Gait and locomotor training, Passive ROM and Active ROM Comment: RIGHT QUADS/HAMS/HIP For the Purpose of:: To decrease pain, To increase ROM, To improve muscle performance and motor function, To improve ability to perform ADL's, To increase tolerance to activity/condition/position, To improve ability of physical actions for home/community/work/leisure, To improve gait and locomotor functions, To improve health of tissue, To decrease soft tissue restriction, To increase flexibility/ROM, To improve endurance and To improve balance Cryotherapy (ice pack, ice massage): Yes Vasopneumatic device: Yes For the Purpose of:: To decrease swelling/inflammation, To increase ROM, To improve nutrient delivery to tissue, To increase oxygenation perfusion, To improve health of tissue and To decrease soft tissue restriction Text: Thank you for the opportunity to evaluate your patient. For Medicare and Medicare HMO plans, please review the plan of care and approve it. It will need to be FAXED BACK to us at [phone] for Medicare purposes. For Medicare only, by signing this I certify the plan of care. Please let me know if there are questions or concerns regarding this plan of care. Physician Signature: Date:
--- NOTE | 2025-04-27 10:55 | HP.PTDCSUM ---
Discharge Summary D/C summary: It has been my pleasure to treat GERMÁN COSBY referred by SHIMA Masters, with the diagnosis of S/P TOTAL LEFT REPLACEMENT for a total of 14 visit(s). Discharge Date: 04/27/25 Please see the following information for a summary of their discharge status. Subjective Subjective: Doing well -seen surgeon happy with progress Pain Left Knee: Pain Intensity (Out of 10): 1 Overall Improvement % Improvement: 100 Objective Objective/Function: Skin : Well approximate SENSATION: sensitive touch GAIT: reciprocal pattern AROM: 0-140 supine knee MMT: quads31.7 ,hamstrings 26.9 Goals Goal 1:: Patient to be I with HEP for TKA Goal Progress: Goal Met Goal 2:: Patient to improve AROM knee flexion 0-120 degrees to improve stairs Goal Progress: Goal Met Goal 3:: Patient to improve peak force quads/hams /hip by 10-15 # strength to improve gait Goal Progress: Goal Met Goal 4:: Patient to improve LFES score by 5-10 points to improve function and QOL Goal Progress: Goal Met Goal 5:: Patient to improve TUG score by < 10 seconds to improve normal stacey Goal Progress: Goal Met Goal 6:: Patient to normalize gait pattern no device Goal Progress: Goal Met Plan Plan: D/C D/C Information Discharge Comments: HEP d/c sentence: If there are questions or concerns regarding this patient's physical therapy, please feel free to call me at [phone]. Thank you for the referral of this patient. Sincerely, Jaime Pulliam, PT, Cert MDT, OCS Balance/Gait/Functional tests Balance/Special Test Scores Lower Extremity Functional Score: 67 TUG Test Time Seconds: 14.41 Tug Test: <20 sec.=mostly independent WOMAC Total Score: 1 WOMAC Percentage: 98.9600 Improvement % Improvement: 100
== END 2025-04-27 19:00 | disposition home or self-care (01) ==
LOC: PT 10:30
PROVIDERS: PCP Family Medicine; Referring Provider Physician Assistant; Visit Provider Physician Assistant
DX: Z96.652 Presence of left artificial knee joint (principal)
CPT/HCPCS: 97016; 97110; 97140; 97162; 97530

== ENCOUNTER → 2025-05-10 | Outpatient (CLI) | payer MEDICAID, SELFPAY ==
[2025-05-10 10:03] LABS: Hematocrit 37.6 % (37-47); Hemoglobin 12.3 g/dL (12.0-15.0); Immature Granulocytes Count 0.020 X10^3/uL (0.0-0.0); Mean Corp Hgb Conc 32.7 g/dL (32-36); Mean Corpuscular Volume 89.7 fL (81-99); Mean Platelet Vol. 10.3 fl (6.2-12.0); NRBC Flagged by Analyzer 0 % (0-5); Platelet Count 253 K/mm3 (150-450); RBC Distribution Width CV 13.6 % (11.6-14.6); RBC Distribution Width SD 44.9 fl (35.1-43.9); Red Blood Count 4.19 M/mm3 (4.2-5.4); White Blood Count 5.2 K/mm3 (4.4-11.0)
[2025-05-10 13:54] LABS: AST(SGOT) 22 U/L (<=31); Alanine Aminotransfer ALT/SGPT 19 U/L (<=34); Albumin, Serum 4.0 g/dL (3.4-4.8); Alkaline Phosphatase 92 U/L (35-104); Anion Gap 11 (5-15); BUN 17 mg/dL (4-19); BUN/Creat Ratio 19.4 RATIO (10-20); Calcium,Total 9.4 mg/dL (7.6-11.0); Carbon Dioxide 23.2 mmol/L (21.0-32.0); Chloride 105 mmol/L (98-108); Cholesterol 182 mg/dL (<=200); Globulin 2.6 g/dL (2.2-4.2); Glucose 83 mg/dL (70-99); Low Density Lipoprotein Calc. 98 mg/dL; Potassium 4.2 mmol/L (3.3-5.1); Triglycerides 98 mg/dL; Very Low Density Lipoprotein 20 mg/dL (5-40); Vitamin D,25 Hydroxy 40.2 ng/mL (30-100); cholesterol:hdl ratio screen 2.83
== END | disposition home or self-care (01) ==
LOC: MTLAB 09:11
PROVIDERS: PCP Family Medicine; Referring Provider Nurse Practitioner Family; Visit Provider Nurse Practitioner Family
DX: Z00.00 Encounter for general adult medical examination without abnormal findings (principal); E88.819 Insulin resistance, unspecified; E03.9 Hypothyroidism, unspecified; E55.9 Vitamin D deficiency, unspecified
CPT/HCPCS: 36415; 80053; 80061; 82306; 83036; 84439; 84443; 85025